=== PATIENT | female | born 1945 | race Caucasian/White ===

== ENCOUNTER 2019-04-15 22:49 | Inpatient (IN) ==
[2019-04-15 23:26] LABS: Hematocrit (blood only) 33.1 % (37-47); Hemoglobin 9.6 g/dL (12.0-16.0); Mean Corpuscular Hemoglobin 21.3 pg (25-34); Mean Corpuscular Volume 73.6 fL (80-100); Mean Platelet Volume 9.8 fL (7.4-10.4); Platelet Count 310 K/uL (130-400); RDW Coefficient of Variation 17.2 % (11.5-14.5); RDW Standard Deviation 46.5 fL (36.4-46.3); White Blood Count 23.82 K/uL (4.8-10.8)
[2019-04-15 23:34] LABS: Alanine Aminotransferase 18 U/L (12-78); Albumin Level 3.8 gm/dl (3.4-5.0); Aspartate Aminotransferase 9 U/L (15-37); BUN Creatinine Ratio 30.2 (10-20); Bilirubin Direct 0.1 mg/dl (0-0.2); Blood Urea Nitrogen 35 mg/dl (7-18); Calcium 9.5 mg/dl (8.5-10.1); Carbon Dioxide 28 mmol/L (21-32); Chloride 104 mmol/L (98-107); Creatinine Clr Calc Pharmacy 39.7 ml/min; Est GFR (African American) 54.7; Est GFR (Non-African American) 47.2; Glucose 191 mg/dl (70-99); Magnesium 2.2 mg/dl (1.8-2.4); Potassium 4.3 mmol/L (3.5-5.1); Sodium 140 mmol/L (136-145)
[2019-04-15 23:39] LABS: Alkaline Phosphatase 125 U/L (45-117); Bilirubin,Total 0.3 mg/dl (0.2-1); Total Protein 8.9 gm/dl (6.4-8.2); Troponin I < 0.015 ng/ml (0-0.045)
[2019-04-15 23:50] LABS: INR 1.1 (0.9-1.1); Prothrombin Time 11.6 Seconds (9.0-12.0)
[2019-04-15 23:59] LABS: Anisocytosis Present; Basophils # (auto) 0.01 K/uL (0-0.2); Eosinophils # (auto) 0.01 K/uL (0-0.5); Hypochromasia Present; Immature Granulocytes % (auto) 0.4 %; Lymphocytes # (auto) 1.09 K/uL (1.2-3.4); Lymphocytes % (auto) 4.6 %; Monocytes # (auto) 0.87 K/uL (0.11-0.59); Monocytes % (auto) 3.7 %; Neutrophils # (auto) 21.74 K/uL (1.4-6.5); Neutrophils % (auto) 91.3 %; Polychromasia 1+; Tear Drop Cells 1+
[2019-04-16 00:17] LABS: Appearance Urine Clear (Clear); Bilirubin Urine Negative (Negative); Blood Urine Negative (Negative); Color Urine Yellow; Glucose Urine UA Negative (Negative); Ketones Urine Negative (Negative); Leukocyte Esterase Urine Negative (Negative); Nitrite Urine Negative (Negative); Protein Urine Negative (Negative); Urobilinogen Urine Negative (Negative)
[2019-04-16] MEDS ORDERED: VANCOMYCIN CONSULT ACTIVE PRN ×2 (00:50→04:29)
[2019-04-16] MEDS ORDERED: CEFEPIME 2,000 MG/20 ML VIAL IV STA (00:50)
[2019-04-16] MEDS ORDERED: VANCOMYCIN HCL 1,500 MG in SODIUM CHLORIDE 0.9% 500 ML IV ONE (00:50)
[2019-04-16] MEDS ORDERED: SODIUM CHLORIDE 0.9% 1000ML 1,000 ML IV ONE ×2 (00:57)
--- NOTE | 2019-04-16 02:54 | History & Physical Report ---
Date of Service April 16, 2019 Assessment & Plan (1) Altered mental status: (2) Sepsis: Monitor repeat lactate, vitals, repeat labs, blood cultures IVF Admit to tele Cefepime and vanco (3) Cellulitis: Cefepime and vanco initiated (4) Infestation by bed bug: (5) Infestation by insect: Isolation precautions Single treatment of permethrin (6) HTN (hypertension): Continue home regimen Amlodipine, carvedilol, HCTZ, losartan (7) TIA (transient ischemic attack): This was initial concern for which son brought her to ER; symptoms resolved on arrival. CT head neg. Pt with h/o CVA with residual deficits Will consult neuro, US carotid, echo, speech eval, neuro checks (8) Hypothyroid: Cont home meds (9) Hyperlipidemia: Cont home meds (10) Diabetes mellitus: Check A1c BSG ACHS ISS (11) Seizure disorder: Cont dilantin Seizure precautions (12) Overactive bladder: Cont home meds (13) Depression: Cont home meds DVTP: heparin sq bid Code: full as code status not discussed w pt or family Dispo: isolation, telemetry admission (14) Diabetic nephropathy: (15) Obesity: History of Present Illness Chief Complaint: [facility] Primary Care Provider: Av Patel MD Patient is a 74yo F PMH listed below but significant for prev CVA (2001), presented via EMS at [facility] of her son who reported altered mental status 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 History provided by ER providers and staff. Pt has h/o CVA with some residual R- sided deficits and was in a typical state of health until earlier this evening when her son noted abnormal speech and incoherent thoughts. EMS was called and patient was evaluated in the ER for possible TIA and sepsis. Initial labs revealed elevated WBC of 23k, H/H of 9.6/33, lactate 2.5, normal UA. CT head negative from stat rad read. Initial examination of pt revealed R-leg cellulitis, fleas, chiggers, bed bugs, and lice. [facility] PMH: -severe HTN, hypothyroid, HLD, overactive bladder, seizure disorder, CVA with residual R-sided weakness, T2DM, depression, diabetic nephropathy, obesity, ?intellectual disability Allergies Allergy/AdvReac Type Severity Reaction Status Date / Time No Known Allergies Allergy Unknown Verified 04/15/19 23:44 Home Medications Home Medications Medication Instructions Recorded Confirmed Type amlodipine 10 mg PO DAILY 04/15/19 04/15/19 History aspirin 81 mg PO DAILY 04/15/19 04/15/19 History baclofen 10 mg PO TID 04/15/19 04/15/19 History carvedilol 25 mg PO QPM 04/15/19 04/15/19 History carvedilol 50 mg PO QAM 04/15/19 04/15/19 History cholecalciferol (vitamin D3) 2,000 unit PO DAILY 04/15/19 04/15/19 History [Vitamin D3] furosemide 20 mg PO DAILY 04/15/19 04/15/19 History glimepiride 4 mg PO DAILY 04/15/19 04/15/19 History hydrochlorothiazide 12.5 mg PO BID 04/15/19 04/15/19 History levothyroxine 75 mcg PO DAILY 04/15/19 04/15/19 History loratadine 10 mg PO DAILY 04/15/19 04/15/19 History losartan 50 mg PO DAILY 04/15/19 04/15/19 History metformin 500 mg PO BID 04/15/19 04/15/19 History phenytoin sodium extended 100 mg PO QPM 04/15/19 04/15/19 History [Dilantin Extended] phenytoin sodium extended 200 mg PO QAM 04/15/19 04/15/19 History [Dilantin Extended] rosuvastatin 40 mg PO HS 04/15/19 04/15/19 History tolterodine 4 mg PO DAILY 04/15/19 04/15/19 History Past Med/Surg History Medical History (Updated 04/16/19 @ 11:36 by Moses Fischer MD) History of CVA (cerebrovascular accident) Social History Preferred Language: Citizen Of [place] Beliefs That Will Affect Care: None Current Living Situation: Family Feels Safe at Home: Yes Safety Concerns: Feels Safe At This Time Smoking Status: Never smoker Hx Alcohol Use: No Hx Substance Use: No Review of Systems Review of Systems: Other (As obtained by ER physician) Constitutional: + fatigue, + malaise and + weakness Physical Exam Physical Exam: Please see ER physician's note. Unable to examine patient due to isolation in relation to excess of insects on patient/son in room. Fleas,chiggers, bed bugs, lice. Noted to have cellulitis of L thigh. Results & Data Vital Signs (Past 12 Hours) Vital Signs Temp Pulse Pulse Resp BP BP Pulse Ox 04/16/19 02:34 20 97 04/16/19 02:33 118 H 20 155/100 H 89 L 04/16/19 01:44 107 H 16 170/88 H 98 04/16/19 00:00 95 H 16 169/78 H 100 04/15/19 23:00 98.2 F 92 H 20 169/78 H 98 Laboratory Results 04/16/19 04/16/19 04/16/19 Range/Units 00:25 00:15 00:00 WBC (4.8-10.8) K/uL RBC (4.2-5.4) M/uL Hgb (12.0-16.0) g/dL Hct (37-47) % MCV (80-100) fL MCH (25-34) pg MCHC (32-36) g/dL RDW Std Deviation (36.4-46.3) fL RDW Coeff of Maurice (11.5-14.5) % Plt Count (130-400) K/uL MPV (7.4-10.4) fL Immature Gran % (Auto) % Neut % (Auto) % Lymph % (Auto) % [place] % (Auto) % Eos % (Auto) % Baso % (Auto) % Immature Gran # (Auto) (0.00-0.02) K/uL Neut # (Auto) (1.4-6.5) K/uL Lymph # (Auto) (1.2-3.4) K/uL [place] # (Auto) (0.11-0.59) K/uL Eos # (Auto) (0-0.5) K/uL Baso # (Auto) (0-0.2) K/uL Polychromasia Hypochromasia Anisocytosis Tear Drop Cells PT (9.0-12.0) Seconds INR (0.9-1.1) Sodium (136-145) mmol/L Potassium (3.5-5.1) mmol/L Chloride (98-107) mmol/L Carbon Dioxide (21-32) mmol/L Anion Gap (3-11) BUN (7-18) mg/dl Creatinine (0.6-1.2) mg/dl Est Cr Clr Drug Dosing ml/min Est GFR ( Amer) Est GFR (Non-Af Amer) BUN/Creatinine Ratio (10-20) Glucose (70-99) mg/dl Lactate 2.5 H* (0.4-2.0) mmol/L Calcium (8.5-10.1) mg/dl Magnesium (1.8-2.4) mg/dl Total Bilirubin (0.2-1) mg/dl Direct Bilirubin (0-0.2) mg/dl AST (15-37) U/L ALT (12-78) U/L Alkaline Phosphatase (45-117) U/L Troponin I (0-0.045) ng/ml Total Protein (6.4-8.2) gm/dl Albumin (3.4-5.0) gm/dl Urine Color Yellow Urine Appearance Clear (Clear) Urine pH 6.0 (4.5-7.5) Ur Specific [place] 1.020 (1.000-1.030) Urine Protein Negative (Negative) Urine Glucose (UA) Negative (Negative) Urine Ketones Negative (Negative) Urine Blood Negative (Negative) Urine Nitrite Negative (Negative) Urine Bilirubin Negative (Negative) Urine Urobilinogen Negative (Negative) Ur Leukocyte Esterase Negative (Negative) Stl C. diff Tox B Gene TNP 04/15/19 04/15/19 04/15/19 Range/Units 22:35 22:35 22:35 WBC 23.82 H (4.8-10.8) K/uL RBC 4.50 (4.2-5.4) M/uL Hgb 9.6 L (12.0-16.0) g/dL Hct 33.1 L (37-47) % MCV 73.6 L (80-100) fL MCH 21.3 L (25-34) pg MCHC 29.0 L (32-36) g/dL RDW Std Deviation 46.5 H (36.4-46.3) fL RDW Coeff of Maurice 17.2 H (11.5-14.5) % Plt Count 310 (130-400) K/uL MPV 9.8 (7.4-10.4) fL Immature Gran % (Auto) 0.4 % Neut % (Auto) 91.3 % Lymph % (Auto) 4.6 % [place] % (Auto) 3.7 % Eos % (Auto) 0.0 % Baso % (Auto) 0.0 % Immature Gran # (Auto) 0.10 H (0.00-0.02) K/uL Neut # (Auto) 21.74 H (1.4-6.5) K/uL Lymph # (Auto) 1.09 L (1.2-3.4) K/uL [place] # (Auto) 0.87 H (0.11-0.59) K/uL Eos # (Auto) 0.01 (0-0.5) K/uL Baso # (Auto) 0.01 (0-0.2) K/uL Polychromasia 1+ Hypochromasia Present Anisocytosis Present Tear Drop Cells 1+ PT 11.6 (9.0-12.0) Seconds INR 1.1 (0.9-1.1) Sodium 140 (136-145) mmol/L Potassium 4.3 (3.5-5.1) mmol/L Chloride 104 (98-107) mmol/L Carbon Dioxide 28 (21-32) mmol/L Anion Gap 8.0 (3-11) BUN 35 H (7-18) mg/dl Creatinine 1.15 (0.6-1.2) mg/dl Est Cr Clr Drug Dosing 39.7 ml/min Est GFR ( Amer) 54.7 Est GFR (Non-Af Amer) 47.2 BUN/Creatinine Ratio 30.2 H (10-20) Glucose 191 H (70-99) mg/dl Lactate (0.4-2.0) mmol/L Calcium 9.5 (8.5-10.1) mg/dl Magnesium 2.2 (1.8-2.4) mg/dl Total Bilirubin 0.3 (0.2-1) mg/dl Direct Bilirubin 0.1 (0-0.2) mg/dl AST 9 L (15-37) U/L ALT 18 (12-78) U/L Alkaline Phosphatase 125 H (45-117) U/L Troponin I < 0.015 (0-0.045) ng/ml Total Protein 8.9 H (6.4-8.2) gm/dl Albumin 3.8 (3.4-5.0) gm/dl Urine Color Urine Appearance (Clear) Urine pH (4.5-7.5) Ur Specific [place] (1.000-1.030) Urine Protein (Negative) Urine Glucose (UA) (Negative) Urine Ketones (Negative) Urine Blood (Negative) Urine Nitrite (Negative) Urine Bilirubin (Negative) Urine Urobilinogen (Negative) Ur Leukocyte Esterase (Negative) Stl C. diff Tox B Gene Code Status & VTE Plan Code Status Full code, NOT discussed with patient or family VTE Prophylaxis Plan VTE Prophylaxis will be ordered: Yes Supervising Physician Co-Signing Physician Notes Attending addendum: I have physically seen this patient, have supervised the medical residents activities, and agree with the H&P unless as otherwise noted. Assessment and Plan: Sepsis due to lower extremity cellulitis- Admit to medical telemetry. Continue cefepime IV and Vanco IV. IV fluids Follow culture and sensitivities. Isolation precautions as noted. Treatment with permethrin as noted. Notification of appropriate agencies. Continue other medications and orders as noted. Resident Activity Tracking Resident Involvement: Resident Care Provided Care Provided: Adult Hospital Medicine (1) Cellulitis Laterality: right Site of cellulitis: extremity Site of cellulitis of extremity: lower extremity Qualified Code(s): L03.115 - Cellulitis of right lower limb (2) Sepsis Sepsis acute organ dysfunction status: unspecified Sepsis type: sepsis due to unspecified organism Qualified Code(s): A41.9 - Sepsis, unspecified organism (3) Altered mental status Altered mental status type: unspecified Qualified Code(s): R41.82 - Altered mental status, unspecified
[2019-04-16] MEDS ORDERED: GLUCOSE 10 TABS/TUBE PO PRN (04:29)
[2019-04-16] MEDS ORDERED: VANCOMYCIN HCL 1,250 MG in SODIUM CHLORIDE 0.9% 500 ML IV SCH (04:29)
[2019-04-16] MEDS ORDERED: ALUMINUM/MAGNESIUM SUSP 30 ML UDC PO PRN (04:29)
[2019-04-16] MEDS ORDERED: GLUCAGON FOR INJ 1 MG VIAL SQ PRN (04:29)
[2019-04-16] MEDS ORDERED: DEXTROSE 50% 50 ML SYRINGE IV PRN (04:29)
[2019-04-16] MEDS ORDERED: GLUCOSE 40% GEL 15 GM TUBE PO PRN (04:29)
[2019-04-16] MEDS ORDERED: MAGNESIUM HYDROXIDE SUSP 30 ML UDC PO PRN (04:29)
[2019-04-16] MEDS ORDERED: CARBOHYDRATES FOR HYPOGLYCEMIA PO PRN (04:29)
[2019-04-16] MEDS ORDERED: ONDANSETRON INJ 2 MG/ML 2 ML VIAL IV PRN (04:29)
[2019-04-16] MEDS ORDERED: SODIUM CHLORIDE 0.9% 1000ML 1,000 ML IV SCH (04:29)
[2019-04-16] MEDS ORDERED: PHARMACIST DISCHARGE MED REC CONSULT PRN (04:29)
[2019-04-16] MEDS ORDERED: ACETAMINOPHEN 325 MG TAB PO PRN (04:29)
[2019-04-16] MEDS ORDERED: POLYETHYLENE (MIRALAX) 17 GM PACK PO PRN (04:29)
[2019-04-16] MEDS ORDERED: PERMETHRIN 59 ML LIQUID BTL TOP ONE (04:29)
[2019-04-16] MEDS ORDERED: ACETAMINOPHEN 1,000 MG/100 ML VIAL IV PRN (05:19)
--- NOTE | 2019-04-16 05:21 | Emergency Department Note ---
Entered by Bear [place] acting as a scribe for ED Provider Note Name: Analia Lemon Age: 74 Arrives Via: EMS Informant: Self and son CC: AMS HPI: 74 y/o female arrives for evaluation of a resolving AMS beginning 2.5 hours ago. The patient states she does not what is going on and thinks she may have had another TIA. She reports she was here two years ago. The patient notes she has frequent TIAs and had a left sided TIA that rendered her permanently disabled on the right side. She states she is wheelchair bound and is able to move herself from her bed to her wheelchair. The patient's son notes he found the patient in the corner of the bathroom with the lights off. He states he started talking to her, and she was complaining of right arm hurting. The son reports she was not her normal self and was sitting on her wheelchair. He notes there are bugs in his house, and he does not know what they are. The son states they have been trying to kill them. Nursing staff reports the patient was found with her right arm tense and when the son asked if she wanted to go to the ED, she said yes. She denies headache, neck pain, chest pain, SOB, abdominal pain, burning with urination, and falls or injuries. The patient's friend states there are bed bugs all over the house, and their house is disgusting. HPI limited secondary to the patient's speech impediment. ROS: See HPI for pertinent positives & negatives. A total of 10 systems reviewed and were otherwise negative. Past Medical History: DM, hypothyroidism, CVA, previously on Coumadin, HTN, seen in the ER most frequently 6 years ago for dermatitis Past Surgical History: Appendectomy, cholecystectomy Family History: Lung disease, HTN, DM, Cancer, seizures Social History: Never smoke, , lives with son, disabled Home Medications: aspirin Allergies NKDA Physical: Vitals: BP 169/78, Pulse 92, Resp 20, Temp 98.2 F, O2 Sat 98 on RA Exam: GENERAL: Patient is disheveled appearing in dirty clothes and covered in multiple types of insects. Slow speech. Difficulty finding words. No distress. EYES: No scleral icterus, unremarkable pupils. ENT: Mucous membranes dry, no nasal congestion. NECK: No masses appreciated, no meningismus, trachea is midline. RESPIRATORY: No dyspnea. Clear to auscultation and equal bilaterally. No wheeze, no rhonchi. CARDIOVASCULAR: Regular rate and rhythm. No murmurs, rubs, gallops appreciated. GASTROINTESTINAL: Abdomen soft, non-tender, no peritonitis. Bowel sounds positive. No masses appreciated. BACK: No midline tenderness, no CVA tenderness EXTREMITIES: No edema. Contractures of the right arm and leg. Weakness of her right arm and leg. Muscle wasting of lower extremities. NEUROLOGIC: Alert and oriented, no acute motor or sensory deficits, no focal weakness, cranial nerves grossly intact. Slow speech. Difficulty finding words. GCS of 15. SKIN: No rash, no jaundice, no diaphoresis. ED Course: Prior Medical Record, Triage/Nursing Notes, Medications, Allergies reviewed by Me Vital Signs: reviewed and remarkable for HTN Labs: Reviewed and remarkable for elevated WBC, lactic acidosis Interventions: saline lock, nss bolus 2L IV, cefepime 2gm IV, Vanco IV Imaging: X ray results are stated below per my interpretation: Chest: 1 view: No infiltrate, no effusion, normal cardiac border. Radiology results as stated below per my review and the radiologist's interpretation: CT HEAD: Comparison:CT head 06/21/08. Chronic left frontoparietal infarct, unchanged. No ICH, mass effect, or edema. No skull fracture. Sinuses and mastoid air cells are clear. Radiologist: Manas Mason M.D. Study ready at 00:44 and initial results transmitted at 00:46 EKG: Per My Interpretation: Indication AMS: NSR 96, qtc 469, no ectopy no ischemia. Poor baseline. Overall appears similar to ekg 06/21/08. Reassessments/Times: 2306: Past medical records reviewed. The patient was evaluated in room A12B. A complete history and physical exam was performed. 0050: Upon reevaluation, the patient is resting comfortably. I discussed laboratory and radiographic results with the son. He verbalized agreement of the treatment plan. The patient will be evaluated for further management and care. 0057: The patient's lactate is elevated. 2L of NSS was ordered in addition to the fluids with the antibiotics. 0117: The patient is very dry and dehydrated appearing. 0124: I reviewed the patient's case with Dr. [id number] Hospitalist. He will evaluate the patient for further management. 0351: The patient is being transferred to the floor. Blood pressure: Normal. No Referral necessary Disposition: Hospitalization Differentials: Differential Diagnosis includes but is not limited to dehydration, stroke, anemia, hypoglycemia, hyponatremia, hypernatremia, urinary tract infection, pneumonia, bronchitis, sepsis, gastroenteritis, additional abdominal pathology, metabolic abnormalities and infections. Medical Decision Makin yr old female in severe mal condition covered in multiple types of insects which appear to be bed bugs, flees, amongst others. She had episode of altered mental status, weakness and apparently mild worsening of her chronically weak right arm. By exam she has stuttering speech but son notes she is completely back to her baseline. Work-up began and revealed elevated WBC at which time Lactic acid and blood cultures obtained. Fluids started and empiric broad spectrum abx begun. She likely is infected from wounds on legs and cellulitis. CXR and UA OK. CT head unremarkable. Other labs ok currently. This is a very unwell patient who clearly is not doign well as outpatient to begin with. She was treated for sepsis and hospitalist in to evaluate further. Impression: Sepsis Cellulitis AMS Infestation by bed bug Infestation by insect Critical Care Time: I have personally spent greater than 30 minutes of critical care time in the direct management of this patient. Sepsis due to cellulitis with elevated WBC and Lactic acidosis requiring fluid and abx resus. This was a life/limb threatening event. This includes time spent evaluating patient, direct bedside care, chart review, placing orders, interpretation of diagnostic studies, discussion with consultants, patient, and family members, as well as other required patient management activities. This 30 minutes is in excess of all separately billable procedures. Wesly Perkins MD The scribe's documentation has been prepared under my direction and personally reviewed by me in its entirety. I confirm that the note above accurately reflects all work, treatment, procedures, and medical decision making performed by me. Impression & Plan Sepsis, Altered mental status, Cellulitis, Infestation by bed bug, Infestation by insect Past Med/Surg History Medical History (Updated 04/16/19 @ 03:38 by Mickie Agrawal MD) History of CVA (cerebrovascular accident) Social History Preferred Language: Turk[place] Beliefs That Will Affect Care: None Current Living Situation: Family Feels Safe at Home: Yes Safety Concerns: Feels Safe At This Time Smoking Status: Never smoker Hx Alcohol Use: No Hx Substance Use: No Results & Data Vital Signs Vital Signs - 24 hr 04/15/19 23:00 04/16/19 00:00 04/16/19 01:44 Temperature 36.8 C Temperature Source Oral Pulse Rate 92 H Pulse Rate [Apical] 95 H 107 H Pulse Rhythm Regular Pulse Rhythm [Apical] Regular Regular Pulse Strength Normal Respiratory Rate 20 16 16 Respiratory Effort / Characteristics Non-Labored Spontaneous Non-Labored Spontaneous Non-Labored Spontaneous Respiratory Depth Normal Normal Normal Respiratory Pattern Regular Regular Regular Blood Pressure 169/78 H Blood Pressure [Right Arm] 169/78 H 170/88 H Blood Pressure Mean 108 Blood Pressure Mean [Right Arm] 108 115 Blood Pressure Position Lying Blood Pressure Position [Right Arm] Pulse Oximetry 98 100 98 Oxygen Delivery Method Room Air Room Air Room Air Oxygen Flow Rate Sepsis Recent Fever Within 48 Hours No Sepsis New/Unexplained Change in Mental Status No Sepsis Action Taken by Nursing No Action Required 04/16/19 02:33 04/16/19 02:34 Temperature Temperature Source Pulse Rate Pulse Rate [Apical] 118 H Pulse Rhythm Pulse Rhythm [Apical] Regular Pulse Strength Respiratory Rate 20 20 Respiratory Effort / Characteristics Respiratory Depth Shallow Respiratory Pattern Blood Pressure Blood Pressure [Right Arm] 155/100 H Blood Pressure Mean Blood Pressure Mean [Right Arm] 118 Blood Pressure Position Blood Pressure Position [Right Arm] Lying Pulse Oximetry 89 L 97 Oxygen Delivery Method Room Air Nasal Cannula Oxygen Flow Rate 2 Sepsis Recent Fever Within 48 Hours Sepsis New/Unexplained Change in Mental Status Sepsis Action Taken by Nursing Laboratory Data Result diagrams: 04/15/19 22:35 04/15/19 22:35 Lab Results 04/15/19 04/15/19 04/15/19 Range/Units 22:35 22:35 22:35 WBC 23.82 H (4.8-10.8) K/uL RBC 4.50 (4.2-5.4) M/uL Hgb 9.6 L (12.0-16.0) g/dL Hct 33.1 L (37-47) % MCV 73.6 L (80-100) fL MCH 21.3 L (25-34) pg MCHC 29.0 L (32-36) g/dL RDW Std Deviation 46.5 H (36.4-46.3) fL RDW Coeff of Maurice 17.2 H (11.5-14.5) % Plt Count 310 (130-400) K/uL MPV 9.8 (7.4-10.4) fL Immature Gran % (Auto) 0.4 % Neut % (Auto) 91.3 % Lymph % (Auto) 4.6 % [place] % (Auto) 3.7 % Eos % (Auto) 0.0 % Baso % (Auto) 0.0 % Immature Gran # (Auto) 0.10 H (0.00-0.02) K/uL Neut # (Auto) 21.74 H (1.4-6.5) K/uL Lymph # (Auto) 1.09 L (1.2-3.4) K/uL [place] # (Auto) 0.87 H (0.11-0.59) K/uL Eos # (Auto) 0.01 (0-0.5) K/uL Baso # (Auto) 0.01 (0-0.2) K/uL Polychromasia 1+ Hypochromasia Present Anisocytosis Present Tear Drop Cells 1+ PT 11.6 (9.0-12.0) Seconds INR 1.1 (0.9-1.1) Sodium 140 (136-145) mmol/L Potassium 4.3 (3.5-5.1) mmol/L Chloride 104 (98-107) mmol/L Carbon Dioxide 28 (21-32) mmol/L Anion Gap 8.0 (3-11) BUN 35 H (7-18) mg/dl Creatinine 1.15 (0.6-1.2) mg/dl Est Cr Clr Drug Dosing 39.7 ml/min Est GFR ( Amer) 54.7 Est GFR (Non-Af Amer) 47.2 BUN/Creatinine Ratio 30.2 H (10-20) Glucose 191 H (70-99) mg/dl Lactate (0.4-2.0) mmol/L Calcium 9.5 (8.5-10.1) mg/dl Magnesium 2.2 (1.8-2.4) mg/dl Total Bilirubin 0.3 (0.2-1) mg/dl Direct Bilirubin 0.1 (0-0.2) mg/dl AST 9 L (15-37) U/L ALT 18 (12-78) U/L Alkaline Phosphatase 125 H (45-117) U/L Troponin I < 0.015 (0-0.045) ng/ml Total Protein 8.9 H (6.4-8.2) gm/dl Albumin 3.8 (3.4-5.0) gm/dl Urine Color Urine Appearance (Clear) Urine pH (4.5-7.5) Ur Specific [place] (1.000-1.030) Urine Protein (Negative) Urine Glucose (UA) (Negative) Urine Ketones (Negative) Urine Blood (Negative) Urine Nitrite (Negative) Urine Bilirubin (Negative) Urine Urobilinogen (Negative) Ur Leukocyte Esterase (Negative) Stl C. diff Tox B Gene 04/16/19 04/16/19 04/16/19 Range/Units 00:00 00:15 00:25 WBC (4.8-10.8) K/uL RBC (4.2-5.4) M/uL Hgb (12.0-16.0) g/dL Hct (37-47) % MCV (80-100) fL MCH (25-34) pg MCHC (32-36) g/dL RDW Std Deviation (36.4-46.3) fL RDW Coeff of Maurice (11.5-14.5) % Plt Count (130-400) K/uL MPV (7.4-10.4) fL Immature Gran % (Auto) % Neut % (Auto) % Lymph % (Auto) % [place] % (Auto) % Eos % (Auto) % Baso % (Auto) % Immature Gran # (Auto) (0.00-0.02) K/uL Neut # (Auto) (1.4-6.5) K/uL Lymph # (Auto) (1.2-3.4) K/uL [place] # (Auto) (0.11-0.59) K/uL Eos # (Auto) (0-0.5) K/uL Baso # (Auto) (0-0.2) K/uL Polychromasia Hypochromasia Anisocytosis Tear Drop Cells PT (9.0-12.0) Seconds INR (0.9-1.1) Sodium (136-145) mmol/L Potassium (3.5-5.1) mmol/L Chloride (98-107) mmol/L Carbon Dioxide (21-32) mmol/L Anion Gap (3-11) BUN (7-18) mg/dl Creatinine (0.6-1.2) mg/dl Est Cr Clr Drug Dosing ml/min Est GFR ( Amer) Est GFR (Non-Af Amer) BUN/Creatinine Ratio (10-20) Glucose (70-99) mg/dl Lactate 2.5 H* (0.4-2.0) mmol/L Calcium (8.5-10.1) mg/dl Magnesium (1.8-2.4) mg/dl Total Bilirubin (0.2-1) mg/dl Direct Bilirubin (0-0.2) mg/dl AST (15-37) U/L ALT (12-78) U/L Alkaline Phosphatase (45-117) U/L Troponin I (0-0.045) ng/ml Total Protein (6.4-8.2) gm/dl Albumin (3.4-5.0) gm/dl Urine Color Yellow Urine Appearance Clear (Clear) Urine pH 6.0 (4.5-7.5) Ur Specific [place] 1.020 (1.000-1.030) Urine Protein Negative (Negative) Urine Glucose (UA) Negative (Negative) Urine Ketones Negative (Negative) Urine Blood Negative (Negative) Urine Nitrite Negative (Negative) Urine Bilirubin Negative (Negative) Urine Urobilinogen Negative (Negative) Ur Leukocyte Esterase Negative (Negative) Stl C. diff Tox B Gene TNP Administered Medications Sodium Chloride (Nss 1000ml) 1,000 mls @ 80 mls/hr IV .[id number] [facility] Stop: 05/16/19 04:28 Last Admin: 04/16/19 05:21 Dose: Not Given Documented by: [id number] Discontinued Medications Cefepime HCl (Maxipime) 2,000 mg in 20 mls @ 5 mls/min IV NOW STA Stop: 04/16/19 00:53 Last Admin: 04/16/19 01:12 Dose: 5 mls/min Documented by: [id number] Vancomycin HCl 1,500 mg/ (Sodium Chloride) 530 mls @ 200 mls/hr IV NOW ONE Stop: 04/16/19 03:28 Last Infusion: 04/16/19 02:38 Dose: 0 mls/hr Documented by: [id number] Admin: 04/16/19 01:12 Dose: 200 mls/hr Documented by: [id number] Sodium Chloride (Nss 1000ml) 1,000 mls @ 999 mls/hr IV .Q1H1M ONE Stop: 04/16/19 01:57 Last Infusion: 04/16/19 02:38 Dose: 0 mls/hr Documented by: [id number] Admin: 04/16/19 01:13 Dose: 999 mls/hr Documented by: [id number] Sodium Chloride (Nss 1000ml) 1,000 mls @ 999 mls/hr IV .Q1H1M ONE Stop: 04/16/19 01:57 Last Infusion: 04/16/19 02:38 Dose: 0 mls/hr Documented by: [id number] Admin: 04/16/19 01:13 Dose: 999 mls/hr Documented by: [id number] Discharge Plan Visit Data *Final* Discharge Date/Time: 04/16/19 04:10 Chief Complaint: Altered Mental Status Stated Complaint: AMS ED Provider: Wesly Perkins Discharge Problem: Sepsis, Altered mental status, Cellulitis, Infestation by bed bug, Infestation by insect Patient Disposition: Admitted As Inpatient Discharge Instructions Interventions: ED Discharge Assessment Last Done: 04/16/19 04:10 Sepsis Evaluation Sepsis screening result: No Definite Risk Current stage of sepsis: sepsis Focused Exam Vital Signs Temp Pulse Pulse Resp BP BP Pulse Ox 04/16/19 02:34 20 97 04/16/19 02:33 118 H 20 155/100 H 89 L 04/16/19 01:44 107 H 16 170/88 H 98 04/16/19 00:00 95 H 16 169/78 H 100 04/15/19 23:00 36.8 C 92 H 20 169/78 H 98 Discharge Problem: Sepsis Qualifiers: Sepsis type: sepsis due to unspecified organism Sepsis acute organ dysfunction status: unspecified Qualified Code(s): A41.9 - Sepsis, unspecified organism Altered mental status Qualifiers: Altered mental status type: unspecified Qualified Code(s): R41.82 - Altered mental status, unspecified Cellulitis Qualifiers: Site of cellulitis: extremity Site of cellulitis of extremity: lower extremity Laterality: right Qualified Code(s): L03.115 - Cellulitis of right lower limb The scribe's documentation has been prepared under my direction and personally reviewed by me in its entirety. I confirm that the note above accurately reflec ts all work, treatment, procedures, and medical decision making performed by me.
[2019-04-16] MEDS ORDERED: INFLUENZA ADMINISTRATION CHARGE ONE (05:30)
[2019-04-16] MEDS ORDERED: INFLUENZA VACCINE HIGH DOSE 65+ 0.5 ML SYR IM ONE (05:30)
[2019-04-16 06:08] LABS: Hemoglobin 8.1 g/dL (12.0-16.0); Mean Corpuscular Hemoglobin 21.2 pg (25-34); Mean Corpuscular Hgb Conc 28.9 g/dL (32-36); Mean Corpuscular Volume 73.3 fL (80-100); Mean Platelet Volume 9.4 fL (7.4-10.4); Platelet Count 240 K/uL (130-400); RDW Coefficient of Variation 17.2 % (11.5-14.5); RDW Standard Deviation 46.4 fL (36.4-46.3); Red Blood Count 3.82 M/uL (4.2-5.4); White Blood Count 15.44 K/uL (4.8-10.8)
[2019-04-16 06:28] LABS: Basophils # (auto) 0.02 K/uL (0-0.2); Basophils % (auto) 0.1 %; Eosinophils # (auto) 0.01 K/uL (0-0.5); Eosinophils % (auto) 0.1 %; Hypochromasia Present; Immature Granulocytes # (auto) 0.04 K/uL (0.00-0.02); Immature Granulocytes % (auto) 0.3 %; Lymphocytes # (auto) 1.59 K/uL (1.2-3.4); Lymphocytes % (auto) 10.3 %; Monocytes # (auto) 1.11 K/uL (0.11-0.59); Monocytes % (auto) 7.2 %; Neutrophils # (auto) 12.67 K/uL (1.4-6.5)
[2019-04-16 06:40] LABS: BUN Creatinine Ratio 28.7 (10-20); Calcium 8.2 mg/dl (8.5-10.1); Creatinine Clr Calc Pharmacy 47.7 ml/min; Est GFR (African American) 65.5; Est GFR (Non-African American) 56.5; Potassium 3.9 mmol/L (3.5-5.1)
--- NOTE | 2019-04-16 06:45 | CT Scan Report ---
HEAD CT NONCONTRAST CT DOSE: 767.83 mGy.cm HISTORY: Altered mental status. TECHNIQUE: Multiaxial CT images of the head were performed without the use of intravenous contrast. A utomated exposure control was utilized for this study. A dose lowering technique was utilized adheri ng to the principles of ALARA. Comparison: Head CT 06/21/2008. Findings: The paranasal sinuses and mastoid air cells are clear. The calvarium and skull base are int act. There is no mass, hematoma, midline shift, acute infarct. White matter hypodensity is nonspecifi c but suggestive of microvascular ischemic change. The ventricles and sulci demonstrate mild age-rela china involutional changes. Chronic left MCA territory infarct, unchanged. Impression: No significant change compared to the prior study. No acute intracranial abnormality. Old left MCA te rritory infarct is again noted. Electronically signed by: Doug Blackmon M.D. 04/16/2019 6:44 AM
[2019-04-16 06:49] LABS: Albumin Globulin Ratio 0.7 (0.9-2); Bilirubin,Total 0.3 mg/dl (0.2-1); Globulin 4.1 gm/dl (2.5-4.0); Total Protein 7.1 gm/dl (6.4-8.2)
[2019-04-16] MEDS: LEVOTHYROXINE SODIUM 75 MCG TABLET PO SCH (06:50)
[2019-04-16 07:24] LABS: Estimated Average Glucose 160 mg/dl; Hemoglobin A1C 7.2 % (4.5-5.6)
[2019-04-16] MEDS ORDERED: INSULIN ASPART 100 UNITS/ML 3 ML PEN SC SCH ×2 (07:30)
--- NOTE | 2019-04-16 08:25 | XRay Report ---
XR chest 1V portable HISTORY: Altered mental status. COMPARISON: None. FINDINGS: No pneumothorax. The heart is enlarged. Bibasilar densities may represent a combination of atelectasis and prominent mediastinal fat. No evidence for pulmonary edema. No pleural effusions. IMPRESSION: 1. Cardiomegaly. 2. Bibasilar densities. These are nonspecific but may represent a combination of prominence of the me diastinal fat and atelectasis. Electronically signed by: Doug Blackmon M.D. 04/16/2019 8:24 AM
[2019-04-16] MEDS: HEPARIN SOD 5,000 UNIT/0.5 ML VIAL SQ SCH ×2 (08:58→20:55)
[2019-04-16] MEDS ORDERED: hydroCHLOROthiazide 25 MG TAB PO SCH (09:00)
[2019-04-16] MEDS: INSULIN GLARGINE SOLOSTAR 100 UNITS/ML 3 ML PEN SC SCH ×2 (09:29→20:50)
--- NOTE | 2019-04-16 10:11 | Pharmacy Report ---
Pharmacy Abx Initial Consult - Date of Service April 16, 2019 - Pharmacy Dosing Scope Date of Consult: 04/16/19 Consultation requested by: Dr. Agrawal Pharmacy is consulted to initiate Vancomycin IV dosing therapy, order appropriate labs and adjust drug dose/frequency. - Subjective The patient is a 74 year old F admitted on 04/16/19 02:48. - Objective Height: 5 ft 2 in Weight: 74.1 kg Vital Signs (Past 12hrs): Vital Signs Temp Pulse Pulse Resp BP BP BP 04/16/19 08:51 37.3 C 94 H 18 141/57 H 04/16/19 04:00 36.7 C 117 H 20 115/93 04/16/19 03:36 101 H 20 183/114 H 04/16/19 02:34 20 04/16/19 02:33 118 H 20 155/100 H 04/16/19 01:44 107 H 16 170/88 H 04/16/19 00:00 95 H 16 169/78 H 04/15/19 23:00 36.8 C 92 H 20 169/78 H Pulse Ox 04/16/19 08:51 96 04/16/19 04:00 97 04/16/19 03:36 100 04/16/19 02:34 97 04/16/19 02:33 89 L 04/16/19 01:44 98 04/16/19 00:00 100 04/15/19 23:00 98 Lab Results (24hrs): Laboratory Tests (24 Hours) 04/16/19 04/16/19 04/15/19 05:42 05:42 22:35 WBC 15.44 H Neut # (Auto) 12.67 H Creatinine 0.99 1.15 Est Cr Clr Drug Dosing 47.7 39.7 04/15/19 22:35 WBC 23.82 H Neut # (Auto) 21.74 H Creatinine Est Cr Clr Drug Dosing Micro Results: 04/15/19 00:15 Aerobic Blood Culture - Pending Blood Anaerobic Blood Culture - Pending 04/15/19 00:10 Aerobic Blood Culture - Pending Blood Anaerobic Blood Culture - Pending - Risk Factors for Resistance * No risk factors for resistance - Assessment & Plan Assessment 74 year old F presented to [facility] with AMS on the evening of 04/15/19 - PMHx significant for prior CVA, T2DM with nephropathy, HTN - Patient noted to have RLE cellulitis with concern for sepsis - Presented with leukocytosis (WBCs ~ 24,000), elevated lactic acid (2.5), afebrile - Today, WBCs down to ~ 15,000, SCr improving (1.15 --> 0.99), remains afebrile - UA negative, Blood Cultures pending Plan IV Vancomycin and Cefepime for treatment of cellulitis Vancomycin IV * Estimated PK Parameters: Vd 0.6 L/kg, Garry 0.044 hr-1, t1/2 16 hr * Loading dose: 1500 mg (20 mg/kg) * Maintenance dose: 1250 mg IV (17 mg/kg) every 24 hours * Goal trough level for cellulitis : ~ 15 mcg/mL * Trough level ordered for 04/18/19 @ 1830 prior to the 3rd dose Cefepime * Pharmacy not consulted for Cefepime dosing * However, target dose for SST is 2 g IV every 12 hours and given patient's current renal function (SCr 0.99, eCrCl 48) will make a renal dose adjustment to 2 g IV every 24 hours per protocol. Will continue to monitor renal function for improvement. Pharmacy will continue to follow and will adjust dose/frequency as necessary. Thank you.
--- NOTE | 2019-04-16 11:42 | Hospitalist Progress Note ---
Date of Service April 16, 2019 Assessment & Plan (1) Altered mental status: Brought in by son for altered mental status. Per patient, her right arm raise into the air and she was confused. I have no idea if this was a seizure or something else entirely. - Dilantin level ordered - Monitor mental status - Neurology with Gillian ordered - She sees Dr. Howe - Unsure if EEG or other testing is warranted at this time (2) Cellulitis: Some concern for right leg cellulitis; however, it is not hot, not tender, and there is no clear area of erythema. I think the changes are most likely chronic; however, she does have many scabs from presumed bed bugs or lice (she reports small bugs crawling on the bed and furniture.) - Treated with permethrin on admission though there is concern that it was not able to get into her hair - Stop vanc/cefepime (ordered on admission) -> Switch to Keflex 500mg BID (renal-dosing) (3) Seizure disorder: Presumably due to her prior CVAs. - Continue home dilantin - Getting level and neuro consult as above (4) History of CVA (cerebrovascular accident): - Continue home meds (5) Diabetes mellitus: A1c was 7.2% this admission. - Hold home metformin - Long-acting insulin - Sliding scale insulin (6) HTN (hypertension): BP presently 140/60. - Continue home meds - Hold HCTZ as she is also on Lasix (7) Hypothyroid: No TSH in chart. - Continue levothyroxine 75 mcg daily - Get TSH with AM labs (8) Infestation by bed bug: Presumed bed bugs or lice. I did not note any on exam today, though bites look a bit more like bedbugs. - Treated x1 with permethrin (9) DVT prophylaxis: Heparin BID Subjective Feels pretty much at baseline at present. No changes in her neurologic status or other. Reports no fevers/chills, chest pain, shortness of breath, abdominal pain, nausea, or vomiting. Physical Exam Constitutional: WD/WN, vitals as above Eyes: EOM intact bilaterally; no conjunctival abnormality ENMT: external ear and nose normal, oropharynx normal Neck: trachea midline, no thyromegaly normal visual inspection Respiratory: normal respiratory effort, lungs clear to auscultation no respiratory distress Cardiovascular: RRR, no murmur, no edema Gastrointestinal (Abdomen): Inspection/Auscultation: abdomen normal to inspection; abdomen not distended Musculoskeletal: no cyanosis or clubbing, extremities motor strength 5/5 Skin: no rashes, warm and dry Neurologic: moves all extremities and awake Speech / Cognition: + abnormal speech (Dysarthric) Motor/Sensory: + abnormal movement (Right arm and leg) Psychiatric: Orientation: alert, oriented to person and cooperative Results & Data Vital Signs (Past 12 Hours) Vital Signs Temp Pulse Pulse Resp BP BP Pulse Ox 04/16/19 08:51 37.3 C 94 H 18 141/57 H 96 04/16/19 08:00 80 04/16/19 04:00 36.7 C 117 H 20 115/93 97 04/16/19 03:36 101 H 20 183/114 H 100 04/16/19 02:34 20 97 04/16/19 02:33 118 H 20 155/100 H 89 L 04/16/19 01:44 107 H 16 170/88 H 98 04/16/19 00:00 95 H 16 169/78 H 100 PG Care Time/CCT Total # of Minutes Spent Total Time Spent with Patient: Total time spent is greater than 50% in coordination of care (as documented) at patient's floor/unit and/or counseling patient: (1) Cellulitis Laterality: right Site of cellulitis: extremity Site of cellulitis of extremity: lower extremity Qualified Code(s): L03.115 - Cellulitis of right lower limb (2) Altered mental status Altered mental status type: unspecified Qualified Code(s): R41.82 - Altered mental status, unspecified
[2019-04-16] MEDS: AMLODIPINE BESYLATE 5 MG TAB PO SCH (12:13)
[2019-04-16] MEDS: PHENYTOIN SODIUM ER 100 MG CAP PO SCH (12:14)
[2019-04-16] MEDS: FUROSEMIDE 20 MG TAB PO SCH (12:14)
[2019-04-16] MEDS: carvediloL 25 MG TAB PO SCH ×2 (12:14→20:51)
[2019-04-16] MEDS: LOSARTAN POTASSIUM 50 MG TAB PO SCH (12:15)
[2019-04-16] MEDS: ASPIRIN 81 MG ECTAB PO SCH (12:16)
[2019-04-16] MEDS: TOLTERODINE TARTRATE LA 4 MG CAPCR PO SCH (12:16)
[2019-04-16] MEDS: BACLOFEN 10 MG TAB PO SCH ×3 (12:16→20:50)
[2019-04-16] MEDS: INSULIN ASPART 100 UNITS/ML 3 ML PEN SC SCH ×3 (12:18→20:49)
[2019-04-16] MEDS: cephALEXin 500 MG CAP PO SCH ×2 (13:22→20:54)
[2019-04-16] MEDS ORDERED: VANCOMYCIN HCL 1,250 MG in SODIUM CHLORIDE 0.9% 250 ML IV SCH (19:00)
[2019-04-16] MEDS: ROSUVASTATIN CALCIUM 20 MG TAB PO SCH (20:53)
[2019-04-16] MEDS ORDERED: PHENYTOIN SODIUM ER 100 MG CAP PO SCH (21:00)
[2019-04-17] MEDS ORDERED: CEFEPIME 2,000 MG in SYRINGE 7.5 ML IV SCH ×2
--- NOTE | 2019-04-17 01:06 | Billing Data ---
Coding Level of Care Code 00507 Initial Inpt Care Lvl 3
[2019-04-17] MEDS: LEVOTHYROXINE SODIUM 75 MCG TABLET PO SCH (06:18)
[2019-04-17] MEDS: AMLODIPINE BESYLATE 5 MG TAB PO SCH (07:47)
[2019-04-17] MEDS: LOSARTAN POTASSIUM 50 MG TAB PO SCH (07:47)
[2019-04-17] MEDS: BACLOFEN 10 MG TAB PO SCH ×3 (07:48→20:33)
[2019-04-17] MEDS: carvediloL 25 MG TAB PO SCH ×2 (07:48→20:32)
[2019-04-17] MEDS: cephALEXin 500 MG CAP PO SCH ×2 (07:48→20:32)
[2019-04-17] MEDS: FUROSEMIDE 20 MG TAB PO SCH (07:48)
[2019-04-17] MEDS: TOLTERODINE TARTRATE LA 4 MG CAPCR PO SCH (07:49)
[2019-04-17] MEDS: ASPIRIN 81 MG ECTAB PO SCH (07:49)
[2019-04-17] MEDS: PHENYTOIN SODIUM ER 100 MG CAP PO SCH ×2 (07:49→20:31)
[2019-04-17 07:50] LABS: Hematocrit (blood only) 26.3 % (37-47); Hemoglobin 7.7 g/dL (12.0-16.0); Mean Corpuscular Hemoglobin 21.2 pg (25-34); Mean Corpuscular Hgb Conc 29.3 g/dL (32-36); Mean Corpuscular Volume 72.5 fL (80-100); Mean Platelet Volume 9.4 fL (7.4-10.4); Platelet Count 227 K/uL (130-400); RDW Coefficient of Variation 17.2 % (11.5-14.5); RDW Standard Deviation 45.7 fL (36.4-46.3); Red Blood Count 3.63 M/uL (4.2-5.4); White Blood Count 9.59 K/uL (4.8-10.8)
[2019-04-17] MEDS: INSULIN GLARGINE SOLOSTAR 100 UNITS/ML 3 ML PEN SC SCH ×2 (07:50→20:30)
[2019-04-17] MEDS: HEPARIN SOD 5,000 UNIT/0.5 ML VIAL SQ SCH ×2 (07:50→20:28)
[2019-04-17] MEDS: INSULIN ASPART 100 UNITS/ML 3 ML PEN SC SCH ×4 (07:53→20:28)
[2019-04-17 08:29] LABS: BUN Creatinine Ratio 24.1 (10-20); Calcium 8.3 mg/dl (8.5-10.1); Est GFR (African American) 62.5; Est GFR (Non-African American) 53.9; Magnesium 1.9 mg/dl (1.8-2.4); Potassium 2.7 mmol/L (3.5-5.1)
[2019-04-17 08:39] LABS: Thyroid Stimulating Hormone 1.48 uIu/ml (0.300-4.500)
[2019-04-17] MEDS ORDERED: CALCIUM GLUCONATE 10% 2,000 MG in SODIUM CHLORIDE 0.9% 50 ML IV ONE (09:15)
[2019-04-17] MEDS: POT PHOSPHATE MONOBASIC W/ SOD TAB PO SCH ×4 (10:08→20:31)
[2019-04-17] MEDS: POTASSIUM CHLORIDE PWD 20 MEQ PACK PO SCH ×3 (10:09→20:34)
--- NOTE | 2019-04-17 11:12 | Communication Note ---
Date of Service: April 17, 2019 I have reviewed this patient's chart, perform examination and discussed her case with her attending hospital team. I have also reviewed what I can from our outpatient [facility] record. The patient has a history of a CVA in 2001 with a post CVA seizure disorder emanating from the scarring process in the left hemisphere and has been on variable dose of Dilantin ever since. On my review of the chart it would appear that she was supposed to take 400 mg a day but this apparently was not transmitted to her and she is been taking 200 mg in the morni ng and 100 at night ever since. She has a host of medical problems all outlined in the chart and all fairly stable with the possible exception of some cellulitis involving the left leg below this really more is in my mind due to infestation perhaps by lice and is complicated by the presence of what appears to be a stasis dermatitis in the right leg which is hemiparetic on Whatever the case she did have observed focal motor involuntary movements of the right arm followed by some confusion was brought to the emergency room at a high white count a CT scan showing only an old infarction, subsequent echo that shows no source of emboli, and is now back to normal but had a Dilantin level that was subtherapeutic at 6 My recommendations are to obtain a duplex of the carotids just to be more comp lete in terms of looking for potential source of the old CVA and for a possible embolic event that may have precipitated the seizure activity although I doubt this is the case, keep the Dilantin level at 200 twice a day and check an outpatient Dilantin level in 3 weeks with a follow-up visit to neurology at [facility] in about 3 to 4 weeks I discussed these recommendations with her hospital team and have dictated a more detailed formal consultation which has not yet been typed Faustino Howe MD
--- NOTE | 2019-04-17 13:04 | Consultation Report ---
DATE OF CONSULTATION: 04/17/[address] Moses Fischer. Analia is 74 years old, is right handed, is a patient of Dr. Royer Jones of the [facility] in [place] and was admitted yesterday to the [facility] for evaluation of some abnormal involuntary movements of the right arm, occurring in the setting of remote cerebrovascular accident in 2001 involving the deep portions and the superficial portion of the left hemisphere with a pretty dense right hemiparesis and minimal aphasia unfortunately, but whose causation was never established and after that she apparently developed recurrent seizures likely of partial onset with secondary generalization and was treated with Dilantin in variable doses under the care of Dr. Fritz Caro. She was then was seen by me on one occasion in the remote past and then by VANESSA Padgett, a practitioner in our group about a year or so ago. I did review that note and it would appear that her Dilantin dosing according to that note, at least was supposed to be 200 mg twice a day or 100 mg twice a day and 200 at night, but she tells me she has only been taking 200 in the morning and 100 at night and has been doing this for some time. In this setting and also in the setting of hypertension, the history of stroke, hypothyroidism, dyslipidemia, diabetes mellitus and neurogenic bladder and depression, she apparently was observed by family members to have involuntary movements of the right arm and she tells me now that she was aware of these, the arm began to jerk particularly in the hand, did so repetitively and then she may have had some confusion and alteration in her consciousness, although this is unclear. The event cleared, she was brought to the Emergency Room, acting on the assumption this was a possible transient ischemic attack, CAT scan shows only the area of old infarction and her Dilantin level was subsequently found to be subtherapeutic in the 6-7 range. Her other medical problems have been assessed. There is some question of infestation perhaps by lice and she has been treated appropriately and there was also some question of a cellulitis and I believe this was raised on an outpatient basis as well with one of Dr. Jones's notes and she was treated briefly with some antibiotics, but I think these are going to be held. I did have the opportunity to discuss her case with Dr. Moses Fischer today and he and I feel that we should simply increase her Dilantin dose to 200 mg twice a day which is easy for her to do based on her current schedule of other medications and have her followed up after another day of observation in our office in about 3-4 weeks with a Dilantin level repeated at that point. PAST MEDICAL HISTORY: Is outlined above, includes hypertension, hypothyroidism, dyslipidemia, neurogenic bladder and has a seizure disorder. The CVA with dense right hemiparesis, type 2 diabetes, depression, diabetic nephropathy, obesity, an underlying cognitive impairment of congenital type. MEDICATIONS: At home include amlodipine, aspirin, baclofen, carvedilol, cholecalciferol, furosemide, glimepiride, hydrochlorothiazide, levothyroxine, loratadine, losartan, metformin, phenytoin theoretically 100 in the morning, 200 at night, although my notations in our SMIC system suggested may have been higher, rosuvastatin, and tolterodine. ALLERGIES: She denies any drug allergies. PAST SURGICAL HISTORY: Surgically, there has been no significant procedures. SOCIAL HISTORY: Reveals her to be , currently living with her family. She is not a smoker, does not consume ethanol. FAMILY HISTORY: Noncontributory. REVIEW OF SYSTEMS: Reveals the recent probable infestation with lice or at least some form of insect with multiple bug bites in the lower extremities, chronic stasis dermatitis of the right lower extremity which is a paretic limb, but otherwise no apparent documented fevers, sweats, chills, weight loss, weight gain and she denies any specific problems referable to head, eyes, ears, nose and throat, cardiovascular, pulmonary, gastrointestinal, genitourinary, musculoskeletal, dermatologic, hematologic, or endocrinologic systems other than noted above with the skin issues in the lower extremities and neurologically of course we have the unexplained CVA back in 2001 involving the left hemisphere, probably a branch of the middle cerebral artery and probably embolic and the post-CVA seizure disorder that was theoretically well controlled on Dilantin up until the current admission when she presented with what I think was a focal motor seizure. PHYSICAL EXAMINATION: VITAL SIGNS: Revealed a blood pressure of 155/100, pulse was 118, respirations 20. She was afebrile. GENERAL: She was somewhat disheveled state with multiple insect bites over the lower extremities and stasis dermatitis on the right leg. There was some question of infestation in her hair which had not been clean for a while. HEENT: Examination is described as otherwise unremarkable. NECK: No carotid bruits were heard. HEART: Evaluation reveals no murmurs. LUNGS: Described as clear. ABDOMEN: Soft, nontender. EXTREMITIES: Lower extremities were free of edema, but did have the insect bites and has stasis dermatitis on the right. NEUROLOGIC: Today, neurologically she is awake, alert, can provide some history and can describe the event that precipitated admission to my satisfaction and it seems as though this was probably a focal motor seizure with post-event confusion that is not clear. She can describe her history to some degree, although she insists that her Dilantin dose was 300 and I suspect it was actually 400, but this may have been a simple miscommunication. Cranial nerves are largely intact with the exception of right upper motor neuron facial asymmetry, I do not miner pick any field cuts and neglect. Speech is a little dysarthric. There is no facial sensory loss. Tongue protrudes in the midline. There is a relatively dense right hemiparesis involving the arm more than the leg with increased tone, mild flexion deformity at the elbow and wrist and some mild flexion deformities at the knee and ankle. Reflexes are generally brisk throughout the right side, although the ankle jerks and knee jerks are difficult to establish due to poor relaxation. There is absence of the left ankle jerk and the left reflexes otherwise are seemingly normal, the right toe sign is extensor, right Haywood's sign is positive. There is a significant degree of upper motor neuron weakness in the right side without atrophy or fasciculations. Sensory examination was done in a very cursory fashion which seems to show some vibratory loss distally. Echocardiogram shows no potential cardiogenic source of emboli. A CT scan of the brain shows an area of old infarction and I do not think we really need to proceed any further with more diagnostic images. I have not seen results of a duplex of the carotids and this might be a reasonable thing to provide. Lab study suggests an elevated white count, possibly due to a seizure, which would make some sense in this setting and is otherwise unremarkable save for anemia and glucose irregularities consistent with her known diabetes In my opinion this event was likely a focal motor seizure due to low dilantin levels and the effects of the old cva in the left heimisphere I do not feel this was a TIA but the history is admittedly vauge at best As described above, my recommendations are to get a duplex of the carotids, continue her low dose aspirin, raise her Dilantin to 200 mg twice a day, have a level done in about 3 weeks and have a followup study of the Dilantin and a followup visit in our office in about 3-4 weeks. WE will check back on her tomorrow MTDD
--- NOTE | 2019-04-17 16:47 | Hospitalist Progress Note ---
Date of Service April 17, 2019 Assessment & Plan (1) Seizure disorder: Due to her prior CVAs. Brought in by son for altered mental status. Per patient, her right arm raise into the air and she was confused. Discussed with neuro and likely a small breakthrough seizure. - Neurology with Gillian ordered - Seen and discussed with Dr. Howe on 04/17. - Dilantin level was low on 04/16 - Increase home Dilantin to 200mg PO BID per neurology - Also getting carotid Doppler (2) Cellulitis: Some concern for right leg cellulitis; however, it is not hot, not tender, and there is no clear area of erythema. However, WBC was up to 24 (could have been inflammatory from seizure though.) I think the changes are most likely chronic; however, she does have many scabs from presumed bed bugs or lice (she reports small bugs crawling on the bed and furniture.) - Treated with permethrin on admission though there is concern that it was not able to get into her hair - Stop vanc/cefepime (ordered on admission) -> Switch to Keflex 500mg BID (renal-dosing). End date: 04/22. (3) Anemia: Hgb on admission was 9.6, down to 7.7 by 04/17. No signs of bleeding. - Get anemia labs in the AM. (4) History of CVA (cerebrovascular accident): - Continue home meds - Carotid Doppler per neurology (5) Diabetes mellitus: A1c was 7.2% this admission. - Hold home metformin - Long-acting insulin - Sliding scale insulin (6) HTN (hypertension): BP presently 145/60. - Continue home meds - Hold HCTZ as she is also on Lasix (7) Hypothyroid: TSH this admission was 1.5. - Continue levothyroxine 75 mcg daily (8) Infestation by bed bug: Presumed bed bugs or lice. I did not note any on exam today, though bites look a bit more like bedbugs. - Treated x1 with permethrin (9) DVT prophylaxis: Heparin BID Subjective In good spirits today. No major complaints. Less itching. No weird movements. Reports no fevers/chills, chest pain, shortness of breath, abdominal pain, nausea, or vomiting. Physical Exam Constitutional: WD/WN, vitals as above Eyes: EOM intact bilaterally; no conjunctival abnormality ENMT: external ear and nose normal, oropharynx normal Neck: trachea midline, no thyromegaly normal visual inspection Respiratory: normal respiratory effort, lungs clear to auscultation no respiratory distress Cardiovascular: RRR, no murmur, no edema Gastrointestinal (Abdomen): Inspection/Auscultation: abdomen normal to inspection; abdomen not distended Musculoskeletal: no cyanosis or clubbing, extremities motor strength 5/5 Skin: no rashes, warm and dry Neurologic: moves all extremities and awake Speech / Cognition: + abnormal speech (Dysarthric) Motor/Sensory: + abnormal movement (Right arm and leg) Psychiatric: Orientation: alert, oriented to person and cooperative Results & Data Vital Signs (Past 12 Hours) Vital Signs Temp Pulse Pulse Resp BP Pulse Ox 04/17/19 16:00 36.6 C 76 20 145/68 H 96 04/17/19 11:06 36.7 C 78 18 128/78 97 04/17/19 09:14 75 04/17/19 07:00 36.8 C 89 16 152/67 H 97 PG Care Time/CCT Total # of Minutes Spent Total Time Spent with Patient: Total time spent is greater than 50% in coordination of care (as documented) at patient's floor/unit and/or counseling patient: (1) Cellulitis Laterality: right Site of cellulitis: extremity Site of cellulitis of extremity: lower extremity Qualified Code(s): L03.115 - Cellulitis of right lower limb
[2019-04-17] MEDS: ROSUVASTATIN CALCIUM 20 MG TAB PO SCH (20:32)
[2019-04-18] MEDS: LEVOTHYROXINE SODIUM 75 MCG TABLET PO SCH (05:55)
[2019-04-18 07:05] LABS: Hematocrit (blood only) 27.2 % (37-47); Mean Corpuscular Hemoglobin 21.5 pg (25-34); Mean Corpuscular Hgb Conc 29.4 g/dL (32-36); Mean Corpuscular Volume 73.1 fL (80-100); Mean Platelet Volume 9.2 fL (7.4-10.4); Platelet Count 240 K/uL (130-400); RDW Coefficient of Variation 17.5 % (11.5-14.5); Red Blood Count 3.72 M/uL (4.2-5.4); White Blood Count 10.72 K/uL (4.8-10.8)
[2019-04-18 07:39] LABS: Folate (Folic Acid) 16.98 ng/ml (>5.38)
[2019-04-18 07:43] LABS: BUN Creatinine Ratio 24.1 (10-20); Calcium 8.8 mg/dl (8.5-10.1); Creatinine Clr Calc Pharmacy 45.6 ml/min; Est GFR (African American) 61.7; Est GFR (Non-African American) 53.3; Ferritin 16.7 ng/ml (8-388); Magnesium 1.9 mg/dl (1.8-2.4)
[2019-04-18 07:47] LABS: Potassium 4.6 mmol/L (3.5-5.1)
[2019-04-18 07:48] LABS: Phosphorus 3.7 mg/dl (2.5-4.9)
[2019-04-18] MEDS: INSULIN ASPART 100 UNITS/ML 3 ML PEN SC SCH ×4 (08:23→20:53)
[2019-04-18] MEDS: carvediloL 25 MG TAB PO SCH ×2 (08:40→20:52)
[2019-04-18] MEDS: LOSARTAN POTASSIUM 50 MG TAB PO SCH (08:41)
[2019-04-18] MEDS: TOLTERODINE TARTRATE LA 4 MG CAPCR PO SCH (08:42)
[2019-04-18] MEDS: PHENYTOIN SODIUM ER 100 MG CAP PO SCH ×2 (08:42→20:51)
[2019-04-18] MEDS: ASPIRIN 81 MG ECTAB PO SCH (08:43)
[2019-04-18] MEDS: HEPARIN SOD 5,000 UNIT/0.5 ML VIAL SQ SCH ×2 (08:44→20:52)
[2019-04-18] MEDS: cephALEXin 500 MG CAP PO SCH ×2 (08:45→20:51)
[2019-04-18] MEDS: INSULIN GLARGINE SOLOSTAR 100 UNITS/ML 3 ML PEN SC SCH ×2 (08:46→20:53)
[2019-04-18] MEDS: FUROSEMIDE 20 MG TAB PO SCH (08:49)
[2019-04-18] MEDS: BACLOFEN 10 MG TAB PO SCH ×3 (08:49→20:55)
[2019-04-18] MEDS: AMLODIPINE BESYLATE 5 MG TAB PO SCH (08:50)
--- NOTE | 2019-04-18 10:45 | Ultrasound Report ---
ULTRASOUND OF THE CAROTID ARTERIES CLINICAL HISTORY: Change in mental status. COMPARISON STUDY: No priors. TECHNIQUE: Real-time, grayscale, and color Doppler sonography of the carotid arteries is performed. I mages are reviewed in the transverse and longitudinal planes. FINDINGS: Blood pressure in the left arm measures 156/26. Pressures were not assessed in the right arm. The carotid arteries are patent bilaterally and demonstrate antegrade flow. There is no significant a therosclerotic plaque seen on the right Normal doppler arterial waveforms are seen throughout. Mildly elevated velocities in the distal right internal carotid artery are likely related to tortuosity. Ve locity measurements are listed below. Common carotid peak systolic velocity (cm/sec): RIGHT: 95 LEFT: 72 ICA proximal peak systolic velocity (cm/sec): RIGHT: 91 LEFT: 214 ICA mid peak systolic velocity (cm/sec): RIGHT: 108 LEFT: 126 ICA distal peak systolic velocity (cm/sec): RIGHT: 156 LEFT: 76 ICA/CC peak systolic ratio: RIGHT: 1.6 LEFT: 2.4 Antegrade flow was shown in the vertebral arteries. The external carotid arteries are patent. IMPRESSION: 1. There is evidence of 50-69% stenosis of the proximal left internal carotid artery by yanna higuera. 2. There is no sonographic evidence of hemodynamically significant stenosis in the right carotid ellen rial system. 3. Antegrade flow is shown in the vertebral arteries. Electronically signed by: Kalen Valdes M.D. 04/18/2019 10:43 AM
--- NOTE | 2019-04-18 15:54 | Communication Note ---
Date of Service: April 18, 2019 I saw Erika today examined her briefly, reviewed her duplex of the carotids and her EEG and and pleased to report that she has had no further events, her Dilantin dose has been increased by 100 mg, EEG is essentially normal revealing no evidence for potentially epileptogenic activity (this certainly does not exclude the diagnosis of a seizure however) and her duplex shows a 50 to 69% stenosis on the left which from a hemodynamic point of view is not significant and would not change my diagnosis of this event from seizure to TIA as I still favor the former based on the clinical history and the depressed Dilantin level on admission At this point neurology is going to sign off the case with recommendations that she have her Dilantin dose increased to 200 mg twice a day, and be followed up in our office in about 3 to 4 weeks and to return to the care of her primary care physician once her medical issues are stabilized Faustino Howe MD
--- NOTE | 2019-04-18 15:58 | Electroencephalogram ---
EEG Procedure Note Date of Service April 18, 2019 Start / End Times Start Time: 909 End Time: 929 Referring Physician Faustino Howe MD History Possible focal seizure versus TIA CVA Home Medication List Home Medications Medication Instructions Recorded Confirmed Type amlodipine 10 mg PO DAILY 04/15/19 04/15/19 History aspirin 81 mg PO DAILY 04/15/19 04/15/19 History baclofen 10 mg PO TID 04/15/19 04/15/19 History carvedilol 25 mg PO QPM 04/15/19 04/15/19 History carvedilol 50 mg PO QAM 04/15/19 04/15/19 History cholecalciferol (vitamin D3) 2,000 unit PO DAILY 04/15/19 04/15/19 History [Vitamin D3] furosemide 20 mg PO DAILY 04/15/19 04/15/19 History glimepiride 4 mg PO DAILY 04/15/19 04/15/19 History hydrochlorothiazide 12.5 mg PO BID 04/15/19 04/15/19 History levothyroxine 75 mcg PO DAILY 04/15/19 04/15/19 History loratadine 10 mg PO DAILY 04/15/19 04/15/19 History losartan 50 mg PO DAILY 04/15/19 04/15/19 History metformin 500 mg PO BID 04/15/19 04/15/19 History phenytoin sodium extended 100 mg PO QPM 04/15/19 04/15/19 History [Dilantin Extended] phenytoin sodium extended 200 mg PO QAM 04/15/19 04/15/19 History [Dilantin Extended] rosuvastatin 40 mg PO HS 04/15/19 04/15/19 History tolterodine 4 mg PO DAILY 04/15/19 04/15/19 History Inpatient Medication List Amlodipine Besylate (Norvasc) 10 mg PO DAILY [facility] Stop: 05/16/19 08:59 Last Admin: 04/18/19 08:50 Dose: 10 mg Documented by: [id number] Cosigned by: [id number] Admin: 04/17/19 07:47 Dose: 10 mg Documented by: [id number] Admin: 04/16/19 12:13 Dose: 10 mg Documented by: [id number] Aspirin (Ecotrin Ectab) 81 mg PO DAILY [facility] Stop: 05/16/19 08:59 Last Admin: 04/18/19 08:43 Dose: 81 mg Documented by: [id number] Cosigned by: [id number] Admin: 04/17/19 07:49 Dose: 81 mg Documented by: [id number] Admin: 04/16/19 12:16 Dose: 81 mg Documented by: [id number] Baclofen (Lioresal) 10 mg PO TID [facility] Stop: 05/16/19 08:59 Last Admin: 04/18/19 14:08 Dose: 10 mg Documented by: [id number] Cosigned by: [id number] Admin: 04/18/19 08:49 Dose: 10 mg Documented by: [id number] Cosigned by: [id number] Admin: 04/17/19 20:33 Dose: 10 mg Documented by: [id number] Admin: 04/17/19 14:23 Dose: 10 mg Documented by: [id number] Admin: 04/17/19 07:48 Dose: 10 mg Documented by: [id number] Admin: 04/16/19 20:50 Dose: 10 mg Documented by: [id number] Admin: 04/16/19 13:22 Dose: Not Given Documented by: [id number] Admin: 04/16/19 12:16 Dose: 10 mg Documented by: [id number] Carvedilol (Coreg) 25 mg PO QPM [facility] Stop: 05/16/19 20:59 Last Admin: 04/17/19 20:32 Dose: 25 mg Documented by: [id number] Admin: 04/16/19 20:51 Dose: 25 mg Documented by: [id number] Carvedilol (Coreg) 50 mg PO QAM [facility] Stop: 05/16/19 08:59 Last Admin: 04/18/19 08:40 Dose: 50 mg Documented by: [id number] Cosigned by: [id number] Admin: 04/17/19 07:48 Dose: 50 mg Documented by: [id number] Admin: 04/16/19 12:14 Dose: 50 mg Documented by: [id number] Cephalexin HCl (Keflex) 500 mg PO BID [facility]; Protocol Stop: 04/26/19 11:44 Last Admin: 04/18/19 08:45 Dose: 500 mg Documented by: [id number] Cosigned by: [id number] Admin: 04/17/19 20:32 Dose: 500 mg Documented by: [id number] Admin: 04/17/19 07:48 Dose: 500 mg Documented by: [id number] Admin: 04/16/19 20:54 Dose: 500 mg Documented by: [id number] Admin: 04/16/19 13:22 Dose: 500 mg Documented by: [id number] Furosemide (Lasix) 20 mg PO DAILY [facility] Stop: 05/16/19 08:59 Last Admin: 04/18/19 08:49 Dose: 20 mg Documented by: [id number] Cosigned by: [id number] Admin: 04/17/19 07:48 Dose: 20 mg Documented by: [id number] Admin: 04/16/19 12:14 Dose: 20 mg Documented by: [id number] Heparin Sodium (Porcine) (Heparin Sodium (Porcine)) 5,000 units SQ Q12 [facility] Stop: 05/16/19 08:59 Last Admin: 04/18/19 08:44 Dose: 5,000 units Documented by: [id number] Cosigned by: [id number] Admin: 04/17/19 20:28 Dose: 5,000 units Documented by: [id number] Cosigned by: [id number] Admin: 04/17/19 07:50 Dose: 5,000 units Documented by: [id number] Cosigned by: [id number] Admin: 04/16/19 20:55 Dose: 5,000 units Documented by: [id number] Cosigned by: [id number] Admin: 04/16/19 08:58 Dose: 5,000 units Documented by: [id number] Cosigned by: [id number] Insulin Aspart (Novolog Flexpen) 0 units SC ACHS [facility] Stop: 05/16/19 11:59 Last Admin: 04/18/19 12:33 Dose: 8 units Documented by: [id number] Cosigned by: [id number] Admin: 04/18/19 08:23 Dose: 7 units Documented by: [id number] Cosigned by: [id number] Admin: 04/17/19 20:28 Dose: 3 units Documented by: [id number] Cosigned by: [id number] Admin: 04/17/19 17:11 Dose: 10 units Documented by: [id number] Cosigned by: [id number] Admin: 04/17/19 12:02 Dose: 11 units Documented by: [id number] Cosigned by: [id number] Admin: 04/17/19 07:53 Dose: 7 units Documented by: [id number] Cosigned by: [id number] Admin: 04/16/19 20:49 Dose: 3 units Documented by: [id number] Cosigned by: [id number] Admin: 04/16/19 17:37 Dose: 8 units Documented by: [id number] Cosigned by: [id number] Admin: 04/16/19 12:18 Dose: 2 units Documented by: [id number] Cosigned by: [id number] Insulin Glargine (Lantus Solostar Pen) 13 units SC BID [facility] Stop: 05/16/19 08:59 Last Admin: 04/18/19 08:46 Dose: 13 units Documented by: [id number] Cosigned by: [id number] Admin: 04/17/19 20:30 Dose: 13 units Documented by: [id number] Cosigned by: [id number] Admin: 04/17/19 07:50 Dose: 13 units Documented by: [id number] Cosigned by: [id number] Admin: 04/16/19 20:50 Dose: 13 units Documented by: [id number] Cosigned by: [id number] Admin: 04/16/19 09:29 Dose: 10 units Documented by: [id number] Cosigned by: [id number] Levothyroxine Sodium (Synthroid) 75 mcg PO DAILYBB [facility] Stop: 05/16/19 06:29 Last Admin: 04/18/19 05:55 Dose: 75 mcg Documented by: [id number] Admin: 04/17/19 06:18 Dose: 75 mcg Documented by: [id number] Admin: 04/16/19 06:50 Dose: Not Given Documented by: [id number] Losartan Potassium (Cozaar) 50 mg PO DAILY [facility] Stop: 05/16/19 08:59 Last Admin: 04/18/19 08:41 Dose: 50 mg Documented by: [id number] Cosigned by: [id number] Admin: 04/17/19 07:47 Dose: 50 mg Documented by: [id number] Admin: 04/16/19 12:15 Dose: 50 mg Documented by: [id number] Phenytoin Sodium (Dilantin Er) 200 mg PO BID [facility] Stop: 05/17/19 20:59 Last Admin: 04/18/19 08:42 Dose: 200 mg Documented by: [id number] Cosigned by: [id number] Admin: 04/17/19 20:31 Dose: 200 mg Documented by: [id number] Rosuvastatin Calcium (Crestor) 40 mg PO HS [facility] Stop: 05/16/19 20:59 Last Admin: 04/17/19 20:32 Dose: 40 mg Documented by: [id number] Admin: 04/16/19 20:53 Dose: 40 mg Documented by: [id number] Tolterodine Tartrate (Detrol La) 4 mg PO DAILY [facility] Stop: 05/16/19 08:59 Last Admin: 04/18/19 08:42 Dose: 4 mg Documented by: [id number] Cosigned by: [id number] Admin: 04/17/19 07:49 Dose: 4 mg Documented by: [id number] Admin: 04/16/19 12:16 Dose: 4 mg Documented by: [id number] Discontinued Medications Hydrochlorothiazide (Hctz) 12.5 mg PO BID [facility] Stop: 05/16/19 08:59 Last Admin: 04/16/19 12:30 Dose: Not Given Documented by: [id number] Cefepime HCl (Maxipime) 2,000 mg in 20 mls @ 5 mls/min IV NOW [facility] Stop: 04/16/19 00:53 Last Admin: 04/16/19 01:12 Dose: 5 mls/min Documented by: [id number] Vancomycin HCl 1,500 mg/ (Sodium Chloride) 530 mls @ 200 mls/hr IV NOW ONE Stop: 04/16/19 03:28 Last Infusion: 04/16/19 02:38 Dose: 0 mls/hr Documented by: [id number] Admin: 04/16/19 01:12 Dose: 200 mls/hr Documented by: [id number] Sodium Chloride (Nss 1000ml) 1,000 mls @ 999 mls/hr IV .Q1H1M ONE Stop: 04/16/19 01:57 Last Infusion: 04/16/19 02:38 Dose: 0 mls/hr Documented by: [id number] Admin: 04/16/19 01:13 Dose: 999 mls/hr Documented by: [id number] Sodium Chloride (Nss 1000ml) 1,000 mls @ 999 mls/hr IV .Q1H1M ONE Stop: 04/16/19 01:57 Last Infusion: 04/16/19 02:38 Dose: 0 mls/hr Documented by: [id number] Admin: 04/16/19 01:13 Dose: 999 mls/hr Documented by: [id number] Sodium Chloride (Nss 1000ml) 1,000 mls @ 80 mls/hr IV .[id number] [facility] Stop: 05/16/19 04:28 Last Admin: 04/16/19 05:21 Dose: Not Given Documented by: [id number] Acetaminophen (Ofirmev) 1,000 mg in 100 mls @ 400 mls/hr IV Q8H PRN PRN Reason: Pain or Fever Stop: 04/19/19 05:18 Last Infusion: 04/16/19 06:51 Dose: 0 mls/hr Documented by: [id number] Admin: 04/16/19 06:20 Dose: 400 mls/hr Documented by: [id number] Calcium Gluconate 2,000 mg/ (Sodium Chloride) 70 mls @ 240 mls/hr IV 0915 ONE Stop: 04/17/19 09:32 Last Infusion: 04/17/19 10:30 Dose: 0 mls/hr Documented by: [id number] Admin: 04/17/19 10:08 Dose: 240 mls/hr Documented by: [id number] Influenza Virus Vaccine (Fluzone High-Dose Pf) 0.5 ml IM .ONCE ONE Stop: 04/16/19 05:31 Last Admin: 04/17/19 06:16 Dose: Not Given Documented by: [id number] Insulin Aspart (Novolog Flexpen) 0 units SC Q6 [facility] Stop: 05/16/19 07:29 Last Admin: 04/16/19 08:58 Dose: 1 units Documented by: [id number] Cosigned by: [id number] Permethrin (Lice Treatment) 59 ml TOP ONE ONE Stop: 04/16/19 04:30 Last Admin: 04/16/19 05:20 Dose: 59 ml Documented by: [id number] Phenytoin Sodium (Dilantin Er) 100 mg PO QPM [facility] Stop: 05/16/19 20:59 Last Admin: 04/16/19 20:53 Dose: 100 mg Documented by: [id number] Phenytoin Sodium (Dilantin Er) 200 mg PO QAM [facility] Stop: 05/16/19 08:59 Last Admin: 04/17/19 07:49 Dose: 200 mg Documented by: [id number] Admin: 04/16/19 12:14 Dose: 200 mg Documented by: [id number] Potassium Chloride (Klor-Con Pwd) 40 meq PO TID [facility] Stop: 04/17/19 21:01 Last Admin: 04/17/19 20:34 Dose: 40 meq Documented by: [id number] Admin: 04/17/19 14:22 Dose: 40 meq Documented by: [id number] Admin: 04/17/19 10:09 Dose: 40 meq Documented by: [id number] Potassium Phosphate (Phospha 250 Neutral 155-852-130 Mg) 1 tab PO QID [facility] Stop: 04/17/19 21:01 Last Admin: 04/17/19 20:31 Dose: 1 tab Documented by: [id number] Admin: 04/17/19 17:14 Dose: 1 tab Documented by: [id number] Admin: 04/17/19 12:03 Dose: 1 tab Documented by: [id number] Admin: 04/17/19 10:08 Dose: 1 tab Documented by: [id number] Description This is a 21 electrode EEG with a single channel dedicated to limited EKG. The electrodes were placed in accordance with the International 10-20 system. This EEG was done as a bedside recording is of good technical quality with few or no muscle movement artifacts. Photic stimulation was performed. Drowsiness and light sleep are not obtained. Under these conditions there is evidence for normal-appearing background rhythm in the alpha range of up to 9 Hz maximum frequency and 30 V of maximal amplitude this maximum posterior head regions bilaterally symmetrical. Polymorphic mid to slightly lower frequency modest amplitude theta activity seen centrally in a symmetrical fashion. Beta activity seen bifrontally Photic stimulation provokes a modest driving response without a photo myogenic a photoparoxysmal component No time during the waking tracing is evidence for potentially epileptogenic activity in the form of polyspike and spike-wave burst, focal sharp waves or focal spikes Interpretation This is a normal EEG during wakefulness Clinical Correlation This is a normal study revealing no evidence for focal or generalized encephalopathy no evidence for potentially epileptogenic activity Faustino Howe MD
--- NOTE | 2019-04-18 16:31 | Hospitalist Progress Note ---
Date of Service April 18, 2019 Assessment & Plan (1) Seizure disorder: * Due to her prior CVAs. Brought in by son for altered mental status. Per patient, her right arm raise into the air and she was confused. Discussed with neuro and likely a small breakthrough seizure. * Neurology with Gillian ordered - Seen and discussed with Dr. Howe on 04/17. * Dilantin level was low, 6, on 04/16 * Increased home Dilantin to 200mg PO BID per neurology -- will need repeat dilantin level in 3 weeks * EEG without evidence of focal or generalized encephalopathy or epileptogenic activity * Carotid doppler -- 50-69% stenosis L proximal internal carotid, R patent (2) Cellulitis: * Some concern for right leg cellulitis; however, it is not hot, tender, or with clear area of erythema. * However, WBC was up to 24, which may have been inflammatory from seizure, however likely this is chronic skin changes. * She does have many scabs from presumed bed bugs or lice (she reports small bugs crawling on the bed and furniture.) -- treated with permethrin on admission. No evidence of further infestation currently. * Stop vanc/cefepime (ordered on admission) -> Switch to Keflex 500mg BID (renal-dosing). End date: 04/22. (3) Anemia: * Hgb on admission was 9.6, down to 7.7 by 04/17. No signs of bleeding. * Current H/h 8.0/27.2 * Iron and ferritin % low-- initiated iron supplementation BID -- may need stool softener if she becomes constipated * Fecal occult stool pending * Patient with low H/H without identifiable cause-- possible need for EGD/colonoscopy as outpatient (4) History of CVA (cerebrovascular accident): * Continue home ASA, crestor * Carotid doppler as above (5) Diabetes mellitus: * A1c was 7.2% this admission. * Hold home metformin -- may need increased at discharge to 1500-2000mg daily * Long-acting insulin * Sliding scale insulin (6) HTN (hypertension): * BP 127/68 this AM * Continue home losartan, coreg, amlodipine, lasix * Should be noted that her Coreg dose is quite high-unclear if there is any benefit to this above the maximum recommended dose * HCTZ on hold and she does not need two diuretics upon discharge (7) Hypothyroid: * TSH this admission was 1.5. * Continue levothyroxine 75 mcg daily (8) Infestation by bed bug: * Presumed bed bugs or lice- treated with permethrin x 1 (9) Carotid artery stenosis: Carotid doppler -- 50-69% stenosis L proximal internal carotid, R patent -Continue aspirin, statin -Should be monitored as an outpatient (10) DVT prophylaxis: * Heparin BID Dispo: will be on [facility] service tomorrow as PCP is Dr. Robert French. Transition of care was discussed with accepting physicians access services assistant Supervising Physician Co-Signing Physician Notes PA Supervision Note: I did not personally see or examine the patient today, but I verified all [place] points of MARY Newton's assessment and plan with the following exceptions/additions: Changes made in assessment and plan as above Subjective Patient evaluated at bedside this morning. She states she is feeling much better. She states she has been moving her bowels, four times yesterday and once this morning, however she denies any melena/hematochezia but does admit she does not look. She plans to discharge to [facility] possibly tomorrow. Review of Systems Constitutional: no fever and no chills Ear, Nose, Mouth, Throat: no tinnitus and no dysphagia Respiratory: no cough and no dyspnea Cardiovascular: no chest pain, no palpitations and no edema Gastrointestinal: no abdominal pain, no nausea, no vomiting, no constipation and no diarrhea/loose stools Genitourinary: no dysuria and no urinary frequency Integumentary: no rash and no lesions darkened R lower leg-- chronic venous stasis Neurologic: no syncope and no headache(s) Physical Exam Constitutional: WD/WN, vitals as above Eyes: PERRL, conjunctivae normal, anicteric sclerae Neck: trachea midline, no thyromegaly Respiratory: normal respiratory effort, lungs clear to auscultation Cardiovascular: RRR, no murmur, no edema Gastrointestinal (Abdomen): normal bowel sounds, soft, nontender, no hepatosplenomegaly Skin: darkened area right lower leg-- chronic venous stasis changes several scattered areas of healed excoriations Neurologic: Speech dysarthric at times Residual deficits R arm/leg Psychiatric: A+Ox3, euthymic affect Lymphatic: no cervical or axillary lymphadenopathy Results & Data Vital Signs (Past 12 Hours) Vital Signs Temp Pulse Pulse Resp BP Pulse Ox 04/18/19 14:54 37 C 72 17 100/59 L 96 04/18/19 11:38 36.9 C 71 17 106/60 96 04/18/19 07:27 78 04/18/19 07:22 36.6 C 72 18 127/68 97 04/18/19 07:11 37.5 C 72 18 122/64 95 Laboratory Results 04/18/19 04/18/19 04/18/19 Range/Units 16:03 11:22 07:25 WBC (4.8-10.8) K/uL RBC (4.2-5.4) M/uL Hgb (12.0-16.0) g/dL Hct (37-47) % MCV (80-100) fL MCH (25-34) pg MCHC (32-36) g/dL RDW Std Deviation (36.4-46.3) fL RDW Coeff of Maurice (11.5-14.5) % Plt Count (130-400) K/uL MPV (7.4-10.4) fL Sodium (136-145) mmol/L Potassium (3.5-5.1) mmol/L Chloride (98-107) mmol/L Carbon Dioxide (21-32) mmol/L Anion Gap (3-11) BUN (7-18) mg/dl Creatinine (0.6-1.2) mg/dl Est Cr Clr Drug Dosing ml/min Est GFR ( Amer) Est GFR (Non-Af Amer) BUN/Creatinine Ratio (10-20) Glucose (70-99) mg/dl POC Glucose 192 H 200 H 156 H (70-99) Calcium (8.5-10.1) mg/dl Phosphorus (2.5-4.9) mg/dl Magnesium (1.8-2.4) mg/dl Iron (35-150) mcg/dl Transferrin (200-360) mg/dl Transferrin % Sat (15-50) % Ferritin (8-388) ng/ml Vitamin B12 (211-911) pg/ml Folate (>5.38) ng/ml 04/18/19 04/18/19 04/18/19 Range/Units 06:53 06:53 06:53 WBC 10.72 (4.8-10.8) K/uL RBC 3.72 L (4.2-5.4) M/uL Hgb 8.0 L (12.0-16.0) g/dL Hct 27.2 L (37-47) % MCV 73.1 L (80-100) fL MCH 21.5 L (25-34) pg MCHC 29.4 L (32-36) g/dL RDW Std Deviation 47.0 H (36.4-46.3) fL RDW Coeff of Maurice 17.5 H (11.5-14.5) % Plt Count 240 (130-400) K/uL MPV 9.2 (7.4-10.4) fL Sodium 140 (136-145) mmol/L Potassium 4.6 D (3.5-5.1) mmol/L Chloride 109 H (98-107) mmol/L Carbon Dioxide 25 (21-32) mmol/L Anion Gap 7.0 (3-11) BUN 25 H (7-18) mg/dl Creatinine 1.04 (0.6-1.2) mg/dl Est Cr Clr Drug Dosing 45.6 ml/min Est GFR ( Amer) 61.7 Est GFR (Non-Af Amer) 53.3 BUN/Creatinine Ratio 24.1 H (10-20) Glucose 135 H (70-99) mg/dl POC Glucose (70-99) Calcium 8.8 (8.5-10.1) mg/dl Phosphorus 3.7 D (2.5-4.9) mg/dl Magnesium 1.9 (1.8-2.4) mg/dl Iron 12 L (35-150) mcg/dl Transferrin 270 (200-360) mg/dl Transferrin % Sat 3 L (15-50) % Ferritin 16.7 (8-388) ng/ml Vitamin B12 622 (211-911) pg/ml Folate 16.98 (>5.38) ng/ml 04/17/19 Range/Units 20:27 WBC (4.8-10.8) K/uL RBC (4.2-5.4) M/uL Hgb (12.0-16.0) g/dL Hct (37-47) % MCV (80-100) fL MCH (25-34) pg MCHC (32-36) g/dL RDW Std Deviation (36.4-46.3) fL RDW Coeff of Maurice (11.5-14.5) % Plt Count (130-400) K/uL MPV (7.4-10.4) fL Sodium (136-145) mmol/L Potassium (3.5-5.1) mmol/L Chloride (98-107) mmol/L Carbon Dioxide (21-32) mmol/L Anion Gap (3-11) BUN (7-18) mg/dl Creatinine (0.6-1.2) mg/dl Est Cr Clr Drug Dosing ml/min Est GFR ( Amer) Est GFR (Non-Af Amer) BUN/Creatinine Ratio (10-20) Glucose (70-99) mg/dl POC Glucose 222 H (70-99) Calcium (8.5-10.1) mg/dl Phosphorus (2.5-4.9) mg/dl Magnesium (1.8-2.4) mg/dl Iron (35-150) mcg/dl Transferrin (200-360) mg/dl Transferrin % Sat (15-50) % Ferritin (8-388) ng/ml Vitamin B12 (211-911) pg/ml Folate (>5.38) ng/ml PG Care Time/CCT Total # of Minutes Spent Total Time Spent with Patient: Total time spent is greater than 50% in coordination of care (as documented) at patient's floor/unit and/or counseling patient: (1) Cellulitis Laterality: right Site of cellulitis: extremity Site of cellulitis of extremity: lower extremity Qualified Code(s): L03.115 - Cellulitis of right lower limb
[2019-04-18] MEDS: FERROUS SULFATE 325 MG TAB PO SCH (16:52)
[2019-04-18] MEDS ORDERED: VANCOMYCIN TROUGH SCH (18:30)
[2019-04-18] MEDS: ROSUVASTATIN CALCIUM 20 MG TAB PO SCH (20:51)
[2019-04-19] MEDS: LEVOTHYROXINE SODIUM 75 MCG TABLET PO SCH (05:50)
--- NOTE | 2019-04-19 07:24 | Hospitalist Progress Note ---
Date of Service April 19, 2019 Assessment & Plan (1) Seizure disorder: (1) Seizure disorder: Due to her prior CVAs. Brought in by son for altered mental status. Per patient, her right arm raise into the air and she was confused. Discussed with neuro and likely a small breakthrough seizure. Neurology on case Dilantin level was low, 6, on 04/16 Increased home Dilantin to 200mg PO BID per neurology -- will need repeat Dilantin level in 3 weeks EEG without evidence of focal or generalized encephalopathy or epileptogenic activity Carotid doppler -- 50-69% stenosis L proximal internal carotid, R patent (2) Cellulitis: Keflex 500mg BID (renal-dosing). End date: 04/22. (3) Anemia: Patient with low H/H without identifiable cause-- possible need for EGD/colonoscopy as outpatient (4) History of CVA (cerebrovascular accident): Continue home ASA, Crestor Carotid doppler as above (5) Diabetes mellitus: Hold home metformin -- may need increased at discharge to 1500-2000mg daily Long-acting insulin Sliding scale insulin (6) HTN (hypertension): Continue home losartan, coreg, amlodipine, lasix (7) Hypothyroid: TSH this admission was 1.5. Continue levothyroxine 75 mcg daily (8) Infestation by bed bug: Presumed bed bugs or lice- treated with permethrin x 1 (9) Carotid artery stenosis: Carotid doppler -- 50-69% stenosis L proximal internal carotid, R patent -Continue aspirin, statin -Should be monitored as an outpatient Labs checked ROS-No Headache, No Visual Changes, No Nausea, No Vomiting, No Fever, No Chills, No Neck Pain or Stiffness, No Chest Pain, No Palpitations, No SOB, No YODER, No Cough, No Sputum, No Wheezing, No Abdominal Pain, No Diarrhea, No Hematemesis, No Hemoptysis, No Unexpected Weight Loss, No Flank pain, No Melena, No Hematochezia, No Frequency, No Urgency, No Burning, No Hematuria, No Rashes, No Diaphoresis. Appetite is Normal Physical Exam Gen-AAO x 3, NAD, Afebrile, WC bound Head-NCAT, EOMI, PERRLA, Anicteric Sclera, No Posterior Pharyngeal Erythema Neck-Supple, No JVD, No Thyromegaly, No Masses, No LAD, No Bruits Lungs-Clear to Auscultation Bilaterally, No Rales, No Rhonchi, No Wheezing, No Crepitus Chest-No S4, +S1, +S2, No S3, No Murmurs, No Rubs, No Gallops, No Ectopy Abdomen-Soft, Bowel Sounds Present, Non Tender, Non Distended, No Hepatomegaly, No Splenomegaly, No Palpable Masses, No Rebound, No Rigidity, No Guarding Musculoskeletal-Full Range of Motion Bilaterally, No CVAT Extremities-No Cyanosis, No Clubbing, No Edema, Chronic stasis RLE>L Nuero-Cranial Nerves II-XII grossly intact, Motor WNL, DTRs WNL, Strength WNL, N on Focal Psych-Normal Mood Results & Data Vital Signs (Past 12 Hours) Vital Signs Temp Pulse Pulse Resp BP Pulse Ox 04/19/19 04:23 36.9 C 69 18 99/61 L 97 04/19/19 01:25 74 04/18/19 22:33 37.6 C H 77 20 97/50 L 97 04/18/19 20:44 74 108/62
[2019-04-19] MEDS: INSULIN GLARGINE SOLOSTAR 100 UNITS/ML 3 ML PEN SC SCH ×2 (09:52→21:12)
[2019-04-19] MEDS: INSULIN ASPART 100 UNITS/ML 3 ML PEN SC SCH ×4 (09:53→21:12)
[2019-04-19] MEDS: ASPIRIN 81 MG ECTAB PO SCH (09:55)
[2019-04-19] MEDS: AMLODIPINE BESYLATE 5 MG TAB PO SCH (09:55)
[2019-04-19] MEDS: LOSARTAN POTASSIUM 50 MG TAB PO SCH (09:55)
[2019-04-19] MEDS: BACLOFEN 10 MG TAB PO SCH ×3 (09:55→21:15)
[2019-04-19] MEDS: TOLTERODINE TARTRATE LA 4 MG CAPCR PO SCH (09:55)
[2019-04-19] MEDS: cephALEXin 500 MG CAP PO SCH ×2 (09:56→21:15)
[2019-04-19] MEDS: HEPARIN SOD 5,000 UNIT/0.5 ML VIAL SQ SCH ×2 (09:57→21:13)
[2019-04-19] MEDS: FERROUS SULFATE 325 MG TAB PO SCH ×2 (09:58→16:13)
[2019-04-19] MEDS: PHENYTOIN SODIUM ER 100 MG CAP PO SCH ×2 (09:59→21:16)
[2019-04-19] MEDS ORDERED: PERMETHRIN 59 ML LIQUID BTL TOP ONE (10:00)
[2019-04-19] MEDS: FUROSEMIDE 20 MG TAB PO SCH (10:00)
[2019-04-19] MEDS: carvediloL 25 MG TAB PO SCH ×2 (10:01→21:17)
[2019-04-19] MEDS: ROSUVASTATIN CALCIUM 20 MG TAB PO SCH (21:17)
[2019-04-20] MEDS: LEVOTHYROXINE SODIUM 75 MCG TABLET PO SCH (06:26)
[2019-04-20 07:33] LABS: Hematocrit (blood only) 27.2 % (37-47); Mean Corpuscular Hemoglobin 21.6 pg (25-34); Mean Corpuscular Hgb Conc 29.4 g/dL (32-36); Mean Corpuscular Volume 73.3 fL (80-100); Mean Platelet Volume 8.8 fL (7.4-10.4); Platelet Count 216 K/uL (130-400); RDW Coefficient of Variation 17.5 % (11.5-14.5); RDW Standard Deviation 46.3 fL (36.4-46.3); Red Blood Count 3.71 M/uL (4.2-5.4); White Blood Count 8.36 K/uL (4.8-10.8)
--- NOTE | 2019-04-20 07:33 | Hospitalist Progress Note ---
Date of Service April 20, 2019 Assessment & Plan (1) Seizure disorder: (1) Seizure disorder: Due to her prior CVAs. Brought in by son for altered mental status. Per patient, her right arm raise into the air and she was confused. Discussed with neuro and likely a small breakthrough seizure. Dilantin level was low, 6, on 04/16 Neurology consulted - Increased home Dilantin to 200mg PO BID, will need repeat Dilantin level in 3 weeks and follow-up with neurology in 3 to 4 weeks EEG without evidence of focal or generalized encephalopathy or epileptogenic activity Carotid doppler -- 50-69% stenosis L proximal internal carotid, R patent (2) Cellulitis: Keflex 500mg BID (renal-dosing). End date: 04/22. (3) Anemia: Microcytic Transferrin % - 3%, iron level low, 12, ferritinlow normal, 16.7 Patient with low H/H without identifiable cause-- possible need for EGD/colonoscopy as outpatient Was started on iron supplement (4) History of CVA (cerebrovascular accident): - in 2001 Continue home ASA, Crestor Carotid doppler as above (5) Diabetes mellitus: Hold home metformin -- may need increased at discharge to 1500-2000mg daily Long-acting insulin Sliding scale insulin (6) HTN (hypertension): Continue home losartan, coreg, amlodipine, lasix (7) Hypothyroid: TSH this admission was 1.5. Continue levothyroxine 75 mcg daily (8) Infestation by bed bug: Presumed bed bugs or lice- treated with permethrin x 3 (9) Carotid artery stenosis: Carotid doppler -- 50-69% stenosis L proximal internal carotid, R patent -Continue aspirin, statin -Should be monitored as an outpatient Subjective No acute events overnight. Patient is sitting in the chair, comfortable, in no acute distress. She denies any chest pain, shortness of breath, fevers, chills, abdominal pain, nausea or vomiting. 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 Review of Systems Review of Systems: All systems reviewed & are unremarkable except as noted in HPI & below Constitutional: no fever, no chills and no fatigue Respiratory: no cough, no chest congestion, no dyspnea and no pain on inspiration Cardiovascular: no chest pain, no dyspnea on exertion, no palpitations and no edema Gastrointestinal: no abdominal pain, no nausea and no vomiting Physical Exam Physical Exam: Elderly female sitting up in a chair, in no acute distress Constitutional: well developed and well nourished; no acute distress Eyes: PERRL, conjunctivae normal, anicteric sclerae EOM intact bilaterally ENMT: external ear and nose normal, oropharynx normal Neck: normal visual inspection Supple Respiratory: normal respiratory effort, lungs clear to auscultation no respiratory distress and no cough Auscultation: no rales, no rhonchi and no wheezes Cardiovascular: RRR, no murmur, no edema Heart Sounds: no gallop Chest (Breasts): Chest: normal inspection of chest Gastrointestinal (Abdomen): Inspection/Auscultation: abdomen normal to inspection and normal bowel sounds; abdomen not distended Percussion/Palpation: abdomen soft; abdomen nontender, no guarding and abdomen not rigid Musculoskeletal: Head/Neck/Chest: normocephalic, head atraumatic and neck supple Extremities: extremities normal to inspection (Except for superficial scratches especially on the right lower extremity, right upper extremity spasticity noted); no clubbing Skin: Trauma: + abrasion (Right lower extremity) Warm, dry Neurologic: Speech / Cognition: + abnormal speech (Dysarthria due to previous CVA) PERRL, EOMI, moves extremities spontaneously, right upper extremity spasticity noted Psychiatric: A+Ox3, euthymic affect Genitourinary: no CVA tenderness Lymphatic: no lymphedema Results & Data Vital Signs (Past 12 Hours) Vital Signs Temp Pulse Pulse Resp BP Pulse Ox 04/20/19 04:52 36.8 C 65 17 108/67 98 04/19/19 23:40 37.1 C 62 19 112/69 98 04/19/19 22:20 73 04/19/19 21:15 70 116/69 Laboratory Results 04/19/19 04/19/19 04/19/19 Range/Units 20:04 16:26 11:50 POC Glucose 198 H 165 H 206 H (70-99) Phenytoin (10-20) mcg/ml 04/19/19 04/19/19 04/18/19 Range/Units 08:00 07:51 20:05 POC Glucose 128 H 190 H (70-99) Phenytoin 7.9 L (10-20) mcg/ml Medications Administered Current Inpatient Medications Acetaminophen (Tylenol) 650 mg PO Q4H PRN PRN Reason: Pain or Fever Stop: 05/16/19 04:28 Al Hydrox/Mg Hydrox/Simethicone (Maalox) 15 ml PO Q4H PRN PRN Reason: Dyspepsia Stop: 05/16/19 04:28 Amlodipine Besylate (Norvasc) 10 mg PO DAILY [facility] Stop: 05/16/19 08:59 Last Admin: 04/19/19 09:55 Dose: 10 mg Documented by: Aspirin (Ecotrin Ectab) 81 mg PO DAILY [facility] Stop: 05/16/19 08:59 Last Admin: 04/19/19 09:55 Dose: 81 mg Documented by: Baclofen (Lioresal) 10 mg PO TID [facility] Stop: 05/16/19 08:59 Last Admin: 04/19/19 21:15 Dose: 10 mg Documented by: Carvedilol (Coreg) 25 mg PO QPM [facility] Stop: 05/16/19 20:59 Last Admin: 04/19/19 21:17 Dose: 25 mg Documented by: Carvedilol (Coreg) 50 mg PO QAM [facility] Stop: 05/16/19 08:59 Last Admin: 04/19/19 10:01 Dose: 50 mg Documented by: Cephalexin HCl (Keflex) 500 mg PO BID [facility]; Protocol Stop: 04/26/19 11:44 Last Admin: 04/19/19 21:15 Dose: 500 mg Documented by: Dextrose (Dextrose 50%) 25 - 50 ml IV UD PRN; Protocol PRN Reason: Hypoglycemia Protocol Stop: 05/16/19 04:28 Ferrous Sulfate (Feosol) 325 mg PO BIDM [facility] Stop: 05/18/19 16:59 Last Admin: 04/19/19 16:13 Dose: 325 mg Documented by: Furosemide (Lasix) 20 mg PO DAILY [facility] Stop: 05/16/19 08:59 Last Admin: 04/19/19 10:00 Dose: 20 mg Documented by: Glucagon (Glucagen) 1 mg SQ UD PRN; Protocol PRN Reason: Hypoglycemia Protocol Stop: 05/16/19 04:28 Glucose (Dex4 Glucose) 4 - 8 tabs PO UD PRN; Protocol PRN Reason: Hypoglycemia Protocol Stop: 05/16/19 04:28 Glucose (Glucose 40%) 15 - 30 gm PO UD PRN; Protocol PRN Reason: Hypoglycemia Protocol Stop: 05/16/19 04:28 Heparin Sodium (Porcine) (Heparin Sodium (Porcine)) 5,000 units SQ Q12 [facility] Stop: 05/16/19 08:59 Last Admin: 04/19/19 21:13 Dose: 5,000 units Documented by: Insulin Aspart (Novolog Flexpen) 0 units SC ACHS [facility] Stop: 05/16/19 11:59 Last Admin: 04/19/19 21:12 Dose: 2 units Documented by: Insulin Glargine (Lantus Solostar Pen) 13 units SC BID [facility] Stop: 05/16/19 08:59 Last Admin: 04/19/19 21:12 Dose: 13 units Documented by: Levothyroxine Sodium (Synthroid) 75 mcg PO DAILYBB [facility] Stop: 05/16/19 06:29 Last Admin: 04/20/19 06:26 Dose: 75 mcg Documented by: Losartan Potassium (Cozaar) 50 mg PO DAILY [facility] Stop: 05/16/19 08:59 Last Admin: 04/19/19 09:55 Dose: 50 mg Documented by: Magnesium Hydroxide (Milk Of Magnesia) 30 ml PO Q12H PRN PRN Reason: Constipation Stop: 05/16/19 04:28 Miscellaneous (Carbohydrates For Hypoglycemia) 15 - 30 gm PO UD PRN PRN Reason: Hypoglycemia Protocol Stop: 05/16/19 04:28 Ondansetron HCl (Zofran) 4 mg IV Q6H PRN PRN Reason: Nausea Stop: 05/16/19 04:28 Permethrin (Lice Treatment) 59 ml TOP ONE ONE Stop: 04/20/19 10:01 Phenytoin Sodium (Dilantin Er) 200 mg PO BID [facility] Stop: 05/17/19 20:59 Last Admin: 04/19/19 21:16 Dose: 200 mg Documented by: Polyethylene Glycol (Miralax Powder Packet) 17 gm PO DAILY PRN PRN Reason: Constipation Stop: 05/16/19 04:28 Rosuvastatin Calcium (Crestor) 40 mg PO HS [facility] Stop: 05/16/19 20:59 Last Admin: 04/19/19 21:17 Dose: 40 mg Documented by: Tolterodine Tartrate (Detrol La) 4 mg PO DAILY [facility] Stop: 05/16/19 08:59 Last Admin: 04/19/19 09:55 Dose: 4 mg Documented by:
[2019-04-20] MEDS: FERROUS SULFATE 325 MG TAB PO SCH ×2 (07:57→17:24)
[2019-04-20] MEDS: carvediloL 25 MG TAB PO SCH ×2 (07:58→20:16)
[2019-04-20] MEDS: TOLTERODINE TARTRATE LA 4 MG CAPCR PO SCH (07:59)
[2019-04-20] MEDS: PHENYTOIN SODIUM ER 100 MG CAP PO SCH ×2 (07:59→20:17)
[2019-04-20] MEDS: LOSARTAN POTASSIUM 50 MG TAB PO SCH (07:59)
[2019-04-20] MEDS: ASPIRIN 81 MG ECTAB PO SCH (08:00)
[2019-04-20] MEDS: cephALEXin 500 MG CAP PO SCH ×2 (08:00→20:17)
[2019-04-20] MEDS: BACLOFEN 10 MG TAB PO SCH ×3 (08:01→20:18)
[2019-04-20] MEDS: AMLODIPINE BESYLATE 5 MG TAB PO SCH (08:01)
[2019-04-20] MEDS: FUROSEMIDE 20 MG TAB PO SCH (08:01)
[2019-04-20 08:03] LABS: BUN Creatinine Ratio 30.2 (10-20); Calcium 9.2 mg/dl (8.5-10.1); Creatinine Clr Calc Pharmacy 46.8 ml/min; Est GFR (Non-African American) 55.2; Potassium 3.6 mmol/L (3.5-5.1)
[2019-04-20] MEDS: INSULIN ASPART 100 UNITS/ML 3 ML PEN SC SCH ×4 (08:04→20:22)
[2019-04-20] MEDS: INSULIN GLARGINE SOLOSTAR 100 UNITS/ML 3 ML PEN SC SCH ×2 (08:05→20:20)
[2019-04-20] MEDS: HEPARIN SOD 5,000 UNIT/0.5 ML VIAL SQ SCH ×2 (08:06→20:19)
[2019-04-20] MEDS ORDERED: PERMETHRIN 59 ML LIQUID BTL TOP ONE (10:00)
[2019-04-20] MEDS: ROSUVASTATIN CALCIUM 20 MG TAB PO SCH (20:16)
[2019-04-21] MEDS: LEVOTHYROXINE SODIUM 75 MCG TABLET PO SCH (06:42)
[2019-04-21] MEDS: AMLODIPINE BESYLATE 5 MG TAB PO SCH (09:32)
[2019-04-21] MEDS: BACLOFEN 10 MG TAB PO SCH ×3 (09:33→20:26)
[2019-04-21] MEDS: LOSARTAN POTASSIUM 50 MG TAB PO SCH (09:33)
[2019-04-21] MEDS: TOLTERODINE TARTRATE LA 4 MG CAPCR PO SCH (09:34)
[2019-04-21] MEDS: FUROSEMIDE 20 MG TAB PO SCH (09:34)
[2019-04-21] MEDS: carvediloL 25 MG TAB PO SCH ×2 (09:36→20:25)
[2019-04-21] MEDS: cephALEXin 500 MG CAP PO SCH ×2 (09:37→20:25)
[2019-04-21] MEDS: PHENYTOIN SODIUM ER 100 MG CAP PO SCH ×2 (09:37→20:26)
[2019-04-21] MEDS: ASPIRIN 81 MG ECTAB PO SCH (09:38)
[2019-04-21] MEDS: FERROUS SULFATE 325 MG TAB PO SCH ×2 (09:38→17:34)
[2019-04-21] MEDS: INSULIN ASPART 100 UNITS/ML 3 ML PEN SC SCH ×4 (09:52→20:30)
[2019-04-21] MEDS: INSULIN GLARGINE SOLOSTAR 100 UNITS/ML 3 ML PEN SC SCH ×2 (09:53→20:31)
[2019-04-21] MEDS: HEPARIN SOD 5,000 UNIT/0.5 ML VIAL SQ SCH ×2 (09:54→20:29)
--- NOTE | 2019-04-21 18:46 | Hospitalist Progress Note ---
Date of Service April 21, 2019 Assessment & Plan (1) Seizure disorder: (1) Seizure disorder: Due to her prior CVAs. Brought in by son for altered mental status. Per patient, her right arm raise into the air and she was confused. Discussed with neuro and likely a small breakthrough seizure. Dilantin level was low, 6, on 04/16 Neurology consulted - Increased home Dilantin to 200mg PO BID, will need repeat Dilantin level in 3 weeks and follow-up with neurology in 3 to 4 weeks EEG without evidence of focal or generalized encephalopathy or epileptogenic activity Carotid doppler -- 50-69% stenosis L proximal internal carotid, R patent (2) Cellulitis: Keflex 500mg BID (renal-dosing). End date: 04/22. (3) Anemia: Microcytic Transferrin % - 3%, iron level low, 12, ferritinlow normal, 16.7 Patient with low H/H without identifiable cause-- possible need for EGD/colonoscopy as outpatient Was started on iron supplement (4) History of CVA (cerebrovascular accident): - in 2001 Continue home ASA, Crestor Carotid doppler as above (5) Diabetes mellitus: Hold home metformin -- may need increased at discharge to 1500-2000mg daily Long-acting insulin Sliding scale insulin (6) HTN (hypertension): Continue home losartan, coreg, amlodipine, lasix (7) Hypothyroid: TSH this admission was 1.5. Continue levothyroxine 75 mcg daily (8) Infestation by bed bug: Presumed bed bugs or lice- treated with permethrin x 3 (9) Carotid artery stenosis: Carotid doppler -- 50-69% stenosis L proximal internal carotid, R patent -Continue aspirin, statin -Should be monitored as an outpatient Dispo: Likely to [facility] [place] (per CM) Subjective No acute events overnight. Patient is lying in bed, comfortable, in no acute distress. She denies any chest pain, shortness of breath, fevers, chills, abdominal pain, nausea or vomiting. 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 Review of Systems Review of Systems: All systems reviewed & are unremarkable except as noted in HPI & below Constitutional: no fever, no chills and no fatigue Respiratory: no cough, no dyspnea and no pain on inspiration Cardiovascular: no chest pain, no radiating jaw, neck or arm pain, no palpitations and no edema Gastrointestinal: no abdominal pain, no nausea and no vomiting Physical Exam Constitutional: well developed and well nourished; no acute distress Eyes: PERRL, conjunctivae normal, anicteric sclerae EOM intact bilaterally ENMT: external ear and nose normal, oropharynx normal Neck: normal visual inspection Respiratory: normal respiratory effort, lungs clear to auscultation no respiratory distress and no cough Auscultation: no rales, no rhonchi and no wheezes Cardiovascular: RRR, no murmur, no edema Heart Sounds: no gallop Chest (Breasts): Chest: normal inspection of chest Gastrointestinal (Abdomen): Inspection/Auscultation: abdomen normal to inspection and normal bowel sounds; abdomen not distended Percussion/Palpation: abdomen soft; abdomen nontender, no guarding and abdomen not rigid Musculoskeletal: Head/Neck/Chest: normocephalic, head atraumatic and neck supple Extremities: extremities normal to inspection (Except for superficial scratches especially on the right lower extremity, right upper extremity spasticity noted); no clubbing Skin: Trauma: + abrasion (Right lower extremity) Neurologic: Speech / Cognition: + abnormal speech (Dysarthria due to previous CVA) Psychiatric: A+Ox3, euthymic affect Genitourinary: no CVA tenderness Lymphatic: no lymphedema Results & Data Vital Signs (Past 12 Hours) Vital Signs Temp Pulse Pulse Resp BP Pulse Ox 04/21/19 16:30 73 04/21/19 15:52 37.1 C 75 18 114/70 95 04/21/19 07:43 63 Laboratory Results 04/21/19 04/21/19 04/21/19 Range/Units 16:31 11:32 07:50 POC Glucose 184 H 169 H 138 H (70-99) 04/20/19 Range/Units 20:06 POC Glucose 177 H (70-99) Medications Administered Current Inpatient Medications Acetaminophen (Tylenol) 650 mg PO Q4H PRN PRN Reason: Pain or Fever Stop: 05/16/19 04:28 Al Hydrox/Mg Hydrox/Simethicone (Maalox) 15 ml PO Q4H PRN PRN Reason: Dyspepsia Stop: 05/16/19 04:28 Amlodipine Besylate (Norvasc) 10 mg PO DAILY [facility] Stop: 05/16/19 08:59 Last Admin: 04/21/19 09:32 Dose: 10 mg Documented by: Aspirin (Ecotrin Ectab) 81 mg PO DAILY [facility] Stop: 05/16/19 08:59 Last Admin: 04/21/19 09:38 Dose: 81 mg Documented by: Baclofen (Lioresal) 10 mg PO TID [facility] Stop: 05/16/19 08:59 Last Admin: 04/21/19 14:05 Dose: 10 mg Documented by: Carvedilol (Coreg) 25 mg PO QPM [facility] Stop: 05/16/19 20:59 Last Admin: 04/20/19 20:16 Dose: 25 mg Documented by: Carvedilol (Coreg) 50 mg PO QAM [facility] Stop: 05/16/19 08:59 Last Admin: 04/21/19 09:36 Dose: 50 mg Documented by: Cephalexin HCl (Keflex) 500 mg PO BID [facility]; Protocol Stop: 04/26/19 11:44 Last Admin: 04/21/19 09:37 Dose: 500 mg Documented by: Dextrose (Dextrose 50%) 25 - 50 ml IV UD PRN; Protocol PRN Reason: Hypoglycemia Protocol Stop: 05/16/19 04:28 Ferrous Sulfate (Feosol) 325 mg PO BIDM [facility] Stop: 05/18/19 16:59 Last Admin: 04/21/19 17:34 Dose: 325 mg Documented by: Furosemide (Lasix) 20 mg PO DAILY [facility] Stop: 05/16/19 08:59 Last Admin: 04/21/19 09:34 Dose: 20 mg Documented by: Glucagon (Glucagen) 1 mg SQ UD PRN; Protocol PRN Reason: Hypoglycemia Protocol Stop: 05/16/19 04:28 Glucose (Dex4 Glucose) 4 - 8 tabs PO UD PRN; Protocol PRN Reason: Hypoglycemia Protocol Stop: 05/16/19 04:28 Glucose (Glucose 40%) 15 - 30 gm PO UD PRN; Protocol PRN Reason: Hypoglycemia Protocol Stop: 05/16/19 04:28 Heparin Sodium (Porcine) (Heparin Sodium (Porcine)) 5,000 units SQ Q12 [facility] Stop: 05/16/19 08:59 Last Admin: 04/21/19 09:54 Dose: 5,000 units Documented by: Insulin Aspart (Novolog Flexpen) 0 units SC ACHS [facility] Stop: 05/16/19 11:59 Last Admin: 04/21/19 17:33 Dose: 5 units Documented by: Insulin Glargine (Lantus Solostar Pen) 13 units SC BID [facility] Stop: 05/16/19 08:59 Last Admin: 04/21/19 09:53 Dose: 13 units Documented by: Levothyroxine Sodium (Synthroid) 75 mcg PO DAILYBB [facility] Stop: 05/16/19 06:29 Last Admin: 04/21/19 06:42 Dose: 75 mcg Documented by: Losartan Potassium (Cozaar) 50 mg PO DAILY [facility] Stop: 05/16/19 08:59 Last Admin: 04/21/19 09:33 Dose: 50 mg Documented by: Magnesium Hydroxide (Milk Of Magnesia) 30 ml PO Q12H PRN PRN Reason: Constipation Stop: 05/16/19 04:28 Miscellaneous (Carbohydrates For Hypoglycemia) 15 - 30 gm PO UD PRN PRN Reason: Hypoglycemia Protocol Stop: 05/16/19 04:28 Ondansetron HCl (Zofran) 4 mg IV Q6H PRN PRN Reason: Nausea Stop: 05/16/19 04:28 Phenytoin Sodium (Dilantin Er) 200 mg PO BID [facility] Stop: 05/17/19 20:59 Last Admin: 04/21/19 09:37 Dose: 200 mg Documented by: Polyethylene Glycol (Miralax Powder Packet) 17 gm PO DAILY PRN PRN Reason: Constipation Stop: 05/16/19 04:28 Rosuvastatin Calcium (Crestor) 40 mg PO HS [facility] Stop: 05/16/19 20:59 Last Admin: 04/20/19 20:16 Dose: 40 mg Documented by: Tolterodine Tartrate (Detrol La) 4 mg PO DAILY [facility] Stop: 05/16/19 08:59 Last Admin: 04/21/19 09:34 Dose: 4 mg Documented by:
[2019-04-21] MEDS: ROSUVASTATIN CALCIUM 20 MG TAB PO SCH (20:27)
[2019-04-22] MEDS: LEVOTHYROXINE SODIUM 75 MCG TABLET PO SCH (06:07)
--- NOTE | 2019-04-22 07:18 | Hospitalist Progress Note ---
Date of Service April 22, 2019 Assessment & Plan (1) Seizure disorder: (1) Seizure disorder: Due to her prior CVAs. Brought in by son for altered mental status. Per patient, her right arm raise into the air and she was confused. Discussed with neuro and likely a small breakthrough seizure. Dilantin level was low, 6, on 04/16 Neurology consulted - Increased home Dilantin to 200mg PO BID, will need repeat Dilantin level in 3 weeks and follow-up with neurology in 3 to 4 weeks EEG without evidence of focal or generalized encephalopathy or epileptogenic activity Carotid doppler -- 50-69% stenosis L proximal internal carotid, R patent (2) Cellulitis: Keflex 500mg BID (renal-dosing). End date: 04/22. (3) Anemia: Microcytic Transferrin % - 3%, iron level low, 12, ferritinlow normal, 16.7 Patient with low H/H without identifiable cause-- possible need for EGD/colonoscopy as outpatient Was started on iron supplement (4) Elevated Cr - today 1.28 (up from ~1) - will give gentle hydration, and will monitor renal function (5) History of CVA (cerebrovascular accident): - in 2001 Continue home ASA, Crestor Carotid doppler as above (6) Diabetes mellitus: Hold home metformin -- may need increased at discharge to 1500-2000mg daily Long-acting insulin Sliding scale insulin (7) HTN (hypertension): Continue home losartan, coreg, amlodipine, lasix (8) Hypothyroid: TSH this admission was 1.5. Continue levothyroxine 75 mcg daily (9) Infestation by bed bug: Presumed bed bugs or lice- treated with permethrin x 3 (10) Carotid artery stenosis: Carotid doppler -- 50-69% stenosis L proximal internal carotid, R patent -Continue aspirin, statin -Should be monitored as an outpatient Dispo: Likely to [facility] (per CM) Subjective No acute events overnight. Patient is in no acute distress, comfortable. She denies any chest pain, shortness of breath, fevers, chills, abdominal pain, nausea or vomiting. Pt has some dysarthria, and right upper extremity spasticity from previous CVA. Review of Systems Review of Systems: All systems reviewed & are unremarkable except as noted in HPI & below Constitutional: no fever and no chills Respiratory: no cough and no dyspnea Cardiovascular: no chest pain, no palpitations and no edema Gastrointestinal: no abdominal pain, no nausea and no vomiting Physical Exam Constitutional: well developed and well nourished; no acute distress Eyes: PERRL, conjunctivae normal, anicteric sclerae EOM intact bilaterally ENMT: external ear and nose normal, oropharynx normal Neck: normal visual inspection Respiratory: normal respiratory effort, lungs clear to auscultation no respiratory distress and no cough Auscultation: no rales, no rhonchi and no wheezes Cardiovascular: RRR, no murmur, no edema Heart Sounds: no gallop Chest (Breasts): Chest: normal inspection of chest Gastrointestinal (Abdomen): Inspection/Auscultation: abdomen normal to inspection and normal bowel sounds; abdomen not distended Percussion/Palpation: abdomen soft; abdomen nontender, no guarding and abdomen not rigid Musculoskeletal: Head/Neck/Chest: normocephalic, head atraumatic and neck supple Extremities: extremities normal to inspection (Except for superficial scratches especially on the right lower extremity, right upper extremity spasticity noted); no clubbing Skin: Trauma: + abrasion (Right lower extremity) Neurologic: Speech / Cognition: + abnormal speech (Dysarthria due to previous CVA) Psychiatric: A+Ox3, euthymic affect Genitourinary: no CVA tenderness Lymphatic: no lymphedema Results & Data Vital Signs (Past 12 Hours) Vital Signs Temp Pulse Resp BP Pulse Ox 04/22/19 04:00 36.8 C 82 20 110/65 97 04/21/19 23:00 37.2 C 81 20 120/72 95 Laboratory Results 04/22/19 04/22/19 04/22/19 Range/Units 16:40 16:01 11:54 Sodium 134 L (136-145) mmol/L Potassium 4.1 (3.5-5.1) mmol/L Chloride 103 (98-107) mmol/L Carbon Dioxide 28 (21-32) mmol/L Anion Gap 3.0 (3-11) BUN 39 H (7-18) mg/dl Creatinine 1.28 H (0.6-1.2) mg/dl Est Cr Clr Drug Dosing 36.9 ml/min Est GFR ( Amer) 48.0 Est GFR (Non-Af Amer) 41.4 BUN/Creatinine Ratio 30.7 H (10-20) Glucose 195 H (70-99) mg/dl POC Glucose 208 H 171 H (70-99) Calcium 9.0 (8.5-10.1) mg/dl 04/22/19 04/21/19 Range/Units 07:38 20:21 Sodium (136-145) mmol/L Potassium (3.5-5.1) mmol/L Chloride (98-107) mmol/L Carbon Dioxide (21-32) mmol/L Anion Gap (3-11) BUN (7-18) mg/dl Creatinine (0.6-1.2) mg/dl Est Cr Clr Drug Dosing ml/min Est GFR ( Amer) Est GFR (Non-Af Amer) BUN/Creatinine Ratio (10-20) Glucose (70-99) mg/dl POC Glucose 127 H 163 H (70-99) Calcium (8.5-10.1) mg/dl 04/21/19 04/21/19 04/21/19 Range/Units 20:21 16:31 11:32 POC Glucose 163 H 184 H 169 H (70-99) 04/21/19 Range/Units 07:50 POC Glucose 138 H (70-99) Medications Administered Current Inpatient Medications Acetaminophen (Tylenol) 650 mg PO Q4H PRN PRN Reason: Pain or Fever Stop: 05/16/19 04:28 Al Hydrox/Mg Hydrox/Simethicone (Maalox) 15 ml PO Q4H PRN PRN Reason: Dyspepsia Stop: 05/16/19 04:28 Amlodipine Besylate (Norvasc) 10 mg PO DAILY [facility] Stop: 05/16/19 08:59 Last Admin: 04/21/19 09:32 Dose: 10 mg Documented by: Aspirin (Ecotrin Ectab) 81 mg PO DAILY [facility] Stop: 05/16/19 08:59 Last Admin: 04/21/19 09:38 Dose: 81 mg Documented by: Baclofen (Lioresal) 10 mg PO TID [facility] Stop: 05/16/19 08:59 Last Admin: 04/21/19 20:26 Dose: 10 mg Documented by: Carvedilol (Coreg) 25 mg PO QPM [facility] Stop: 05/16/19 20:59 Last Admin: 04/21/19 20:25 Dose: 25 mg Documented by: Carvedilol (Coreg) 50 mg PO QAM [facility] Stop: 05/16/19 08:59 Last Admin: 04/21/19 09:36 Dose: 50 mg Documented by: Cephalexin HCl (Keflex) 500 mg PO BID [facility]; Protocol Stop: 04/26/19 11:44 Last Admin: 04/21/19 20:25 Dose: 500 mg Documented by: Dextrose (Dextrose 50%) 25 - 50 ml IV UD PRN; Protocol PRN Reason: Hypoglycemia Protocol Stop: 05/16/19 04:28 Ferrous Sulfate (Feosol) 325 mg PO BIDM [facility] Stop: 05/18/19 16:59 Last Admin: 04/21/19 17:34 Dose: 325 mg Documented by: Furosemide (Lasix) 20 mg PO DAILY [facility] Stop: 05/16/19 08:59 Last Admin: 04/21/19 09:34 Dose: 20 mg Documented by: Glucagon (Glucagen) 1 mg SQ UD PRN; Protocol PRN Reason: Hypoglycemia Protocol Stop: 05/16/19 04:28 Glucose (Dex4 Glucose) 4 - 8 tabs PO UD PRN; Protocol PRN Reason: Hypoglycemia Protocol Stop: 05/16/19 04:28 Glucose (Glucose 40%) 15 - 30 gm PO UD PRN; Protocol PRN Reason: Hypoglycemia Protocol Stop: 05/16/19 04:28 Heparin Sodium (Porcine) (Heparin Sodium (Porcine)) 5,000 units SQ Q12 [facility] Stop: 05/16/19 08:59 Last Admin: 04/21/19 20:29 Dose: 5,000 units Documented by: Insulin Aspart (Novolog Flexpen) 0 units SC ACHS [facility] Stop: 05/16/19 11:59 Last Admin: 04/21/19 20:30 Dose: 1 units Documented by: Insulin Glargine (Lantus Solostar Pen) 13 units SC BID [facility] Stop: 05/16/19 08:59 Last Admin: 04/21/19 20:31 Dose: 13 units Documented by: Levothyroxine Sodium (Synthroid) 75 mcg PO DAILYBB [facility] Stop: 05/16/19 06:29 Last Admin: 04/22/19 06:07 Dose: 75 mcg Documented by: Losartan Potassium (Cozaar) 50 mg PO DAILY [facility] Stop: 05/16/19 08:59 Last Admin: 04/21/19 09:33 Dose: 50 mg Documented by: Magnesium Hydroxide (Milk Of Magnesia) 30 ml PO Q12H PRN PRN Reason: Constipation Stop: 05/16/19 04:28 Miscellaneous (Carbohydrates For Hypoglycemia) 15 - 30 gm PO UD PRN PRN Reason: Hypoglycemia Protocol Stop: 05/16/19 04:28 Ondansetron HCl (Zofran) 4 mg IV Q6H PRN PRN Reason: Nausea Stop: 05/16/19 04:28 Phenytoin Sodium (Dilantin Er) 200 mg PO BID [facility] Stop: 05/17/19 20:59 Last Admin: 04/21/19 20:26 Dose: 200 mg Documented by: Polyethylene Glycol (Miralax Powder Packet) 17 gm PO DAILY PRN PRN Reason: Constipation Stop: 05/16/19 04:28 Rosuvastatin Calcium (Crestor) 40 mg PO HS [facility] Stop: 05/16/19 20:59 Last Admin: 04/21/19 20:27 Dose: 40 mg Documented by: Tolterodine Tartrate (Detrol La) 4 mg PO DAILY [facility] Stop: 05/16/19 08:59 Last Admin: 04/21/19 09:34 Dose: 4 mg Documented by:
[2019-04-22] MEDS: INSULIN ASPART 100 UNITS/ML 3 ML PEN SC SCH ×4 (08:53→20:23)
[2019-04-22] MEDS: BACLOFEN 10 MG TAB PO SCH ×3 (08:53→20:23)
[2019-04-22] MEDS: PHENYTOIN SODIUM ER 100 MG CAP PO SCH ×2 (08:54→20:20)
[2019-04-22] MEDS: LOSARTAN POTASSIUM 50 MG TAB PO SCH (08:54)
[2019-04-22] MEDS: ASPIRIN 81 MG ECTAB PO SCH (08:54)
[2019-04-22] MEDS: AMLODIPINE BESYLATE 5 MG TAB PO SCH (08:54)
[2019-04-22] MEDS: TOLTERODINE TARTRATE LA 4 MG CAPCR PO SCH (08:54)
[2019-04-22] MEDS: cephALEXin 500 MG CAP PO SCH ×2 (08:55→20:22)
[2019-04-22] MEDS: carvediloL 25 MG TAB PO SCH ×2 (08:55→20:20)
[2019-04-22] MEDS: FERROUS SULFATE 325 MG TAB PO SCH ×2 (08:56→17:19)
[2019-04-22] MEDS: HEPARIN SOD 5,000 UNIT/0.5 ML VIAL SQ SCH ×2 (08:56→20:20)
[2019-04-22] MEDS: INSULIN GLARGINE SOLOSTAR 100 UNITS/ML 3 ML PEN SC SCH ×2 (08:57→20:24)
[2019-04-22] MEDS: FUROSEMIDE 20 MG TAB PO SCH (08:57)
[2019-04-22 16:47] LABS: BUN Creatinine Ratio 30.7 (10-20); Creatinine Clr Calc Pharmacy 36.9 ml/min; Est GFR (Non-African American) 41.4; Potassium 4.1 mmol/L (3.5-5.1)
[2019-04-22] MEDS: SODIUM CHLORIDE 0.9% 1000ML 1,000 ML IV SCH (19:14)
[2019-04-22] MEDS: ROSUVASTATIN CALCIUM 20 MG TAB PO SCH (20:23)
[2019-04-23] MEDS: LEVOTHYROXINE SODIUM 75 MCG TABLET PO SCH (06:21)
[2019-04-23 07:17] LABS: BUN Creatinine Ratio 34.7 (10-20); Calcium 8.5 mg/dl (8.5-10.1); Creatinine Clr Calc Pharmacy 48.7 ml/min; Est GFR (African American) 67.2; Est GFR (Non-African American) 57.9; Potassium 3.8 mmol/L (3.5-5.1)
[2019-04-23] MEDS: INSULIN ASPART 100 UNITS/ML 3 ML PEN SC SCH ×4 (07:57→20:44)
[2019-04-23] MEDS: INSULIN GLARGINE SOLOSTAR 100 UNITS/ML 3 ML PEN SC SCH ×2 (07:57→20:56)
[2019-04-23] MEDS: AMLODIPINE BESYLATE 5 MG TAB PO SCH (07:58)
[2019-04-23] MEDS: HEPARIN SOD 5,000 UNIT/0.5 ML VIAL SQ SCH ×2 (07:58→20:55)
[2019-04-23] MEDS: ASPIRIN 81 MG ECTAB PO SCH (07:59)
[2019-04-23] MEDS: TOLTERODINE TARTRATE LA 4 MG CAPCR PO SCH (07:59)
[2019-04-23] MEDS: FERROUS SULFATE 325 MG TAB PO SCH ×2 (07:59→18:40)
[2019-04-23] MEDS: cephALEXin 500 MG CAP PO SCH (07:59)
[2019-04-23] MEDS: BACLOFEN 10 MG TAB PO SCH ×3 (07:59→20:55)
[2019-04-23] MEDS: PHENYTOIN SODIUM ER 100 MG CAP PO SCH ×2 (07:59→20:57)
[2019-04-23] MEDS: carvediloL 25 MG TAB PO SCH ×2 (07:59→20:55)
[2019-04-23] MEDS: LOSARTAN POTASSIUM 50 MG TAB PO SCH (07:59)
[2019-04-23] MEDS ORDERED: METFORMIN HCL ER 500 MG TABCR PO SCH (08:00)
[2019-04-23] MEDS: SODIUM CHLORIDE 0.9% 1000ML 1,000 ML IV SCH (08:00)
--- NOTE | 2019-04-23 08:31 | Hospitalist Progress Note ---
Date of Service April 23, 2019 Assessment & Plan (1) Seizure disorder: (1) Seizure disorder: Due to her prior CVAs. Brought in by son for altered mental status. Per patient, her right arm raise into the air and she was confused. Discussed with neuro and likely a small breakthrough seizure. Dilantin level was low, 6, on 04/16 Neurology consulted - Increased home Dilantin to 200mg PO BID, will need repeat Dilantin level in 3 weeks and follow-up with neurology in 3 to 4 weeks EEG without evidence of focal or generalized encephalopathy or epileptogenic activity Carotid doppler -- 50-69% stenosis L proximal internal carotid, R patent (2) Cellulitis: Keflex 500mg BID (renal-dosing). End date: 04/22 (discontinued) (3) Anemia: Microcytic Transferrin % - 3%, iron level low, 12, ferritinlow normal, 16.7 Patient with low H/H without identifiable cause-- possible need for EGD/colonoscopy as outpatient Was started on iron supplement (4) Elevated Cr/ ANDREW - now resolved - yesterday 1.28 (up from ~1), currently <1 - gave gentle hydration, and will cont. to monitor renal function (5) History of CVA (cerebrovascular accident): - in 2001 Continue home ASA, Crestor Carotid doppler as above (6) Diabetes mellitus: Held home metformin during admission -- may need increased at discharge to 1500- 2000mg daily -tried her today on 500 mg, patient then had emesis, unsure if this is due to metformin, however for now will hold Long-acting insulin Sliding scale insulin (7) HTN (hypertension): Continue home losartan, coreg, amlodipine, lasix (8) Hypothyroid: TSH this admission was 1.5. Continue levothyroxine 75 mcg daily (9) Infestation by bed bug: Presumed bed bugs or lice- treated with permethrin x 3 (10) Carotid artery stenosis: Carotid doppler -- 50-69% stenosis L proximal internal carotid, R patent -Continue aspirin, statin -Should be monitored as an outpatient Dispo: Likely to [facility] (per CM) Subjective No acute events overnight. However patient had nausea, and vomited earlier today. Currently she feels well sitting up in the bed, denies any nausea or abdominal pain, says she feels well. She also denies any chest pain, shortness of breath, fevers, chills. Restarted patient on metformin, wonder if that has upset her stomach. Pt has some dysarthria, and right upper extremity spasticity from previous CVA. Review of Systems Review of Systems: All systems reviewed & are unremarkable except as noted in HPI & below Constitutional: no fever, no chills, no body aches and no fatigue Respiratory: no cough, no dyspnea and no pain on inspiration Cardiovascular: no chest pain, no dyspnea on exertion, no palpitations and no edema Gastrointestinal: + nausea and + vomiting; no abdominal pain Physical Exam Constitutional: well developed and well nourished; no acute distress Eyes: PERRL, conjunctivae normal, anicteric sclerae EOM intact bilaterally ENMT: external ear and nose normal, oropharynx normal Neck: normal visual inspection Respiratory: normal respiratory effort, lungs clear to auscultation no respiratory distress and no cough Auscultation: no rales, no rhonchi and no wheezes Cardiovascular: RRR, no murmur, no edema Heart Sounds: no gallop Chest (Breasts): Chest: normal inspection of chest Gastrointestinal (Abdomen): Inspection/Auscultation: abdomen normal to inspection and normal bowel sounds; abdomen not distended Percussion/ Palpation: abdomen soft; abdomen nontender, no guarding and abdomen not rigid Musculoskeletal: Head/Neck/Chest: normocephalic, head atraumatic and neck supple Extremities: extremities normal to inspection (Except for superficial scratches especially on the right lower extremity, right upper extremity spast icity noted); no clubbing Skin: Trauma: + abrasion (Right lower extremity) Neurologic: Speech / Cognition: + abnormal speech (Dysarthria due to previous CVA) Psychiatric: A+Ox3, euthymic affect Genitourinary: no CVA tenderness Lymphatic: no lymphedema Results & Data Vital Signs (Past 12 Hours) Vital Signs Temp Pulse Resp BP Pulse Ox 04/23/19 07:18 36.6 C 64 18 132/74 99 04/22/19 23:10 36.8 C 66 20 149/72 H 100 Laboratory Results 04/23/19 04/22/19 04/22/19 Range/Units 06:27 20:09 16:40 Sodium 137 (136-145) mmol/L Potassium 3.8 (3.5-5.1) mmol/L Chloride 106 (98-107) mmol/L Carbon Dioxide 26 (21-32) mmol/L Anion Gap 5.0 (3-11) BUN 34 H (7-18) mg/dl Creatinine 0.97 D (0.6-1.2) mg/dl Est Cr Clr Drug Dosing 48.7 ml/min Est GFR ( Amer) 67.2 Est GFR (Non-Af Amer) 57.9 BUN/Creatinine Ratio 34.7 H (10-20) Glucose 136 H (70-99) mg/dl POC Glucose 217 H 208 H (70-99) Calcium 8.5 (8.5-10.1) mg/dl Magnesium 2.0 (1.8-2.4) mg/dl 04/22/19 04/22/19 Range/Units 16:01 11:54 Sodium 134 L (136-145) mmol/L Potassium 4.1 (3.5-5.1) mmol/L Chloride 103 (98-107) mmol/L Carbon Dioxide 28 (21-32) mmol/L Anion Gap 3.0 (3-11) BUN 39 H (7-18) mg/dl Creatinine 1.28 H (0.6-1.2) mg/dl Est Cr Clr Drug Dosing 36.9 ml/min Est GFR ( Amer) 48.0 Est GFR (Non-Af Amer) 41.4 BUN/Creatinine Ratio 30.7 H (10-20) Glucose 195 H (70-99) mg/dl POC Glucose 171 H (70-99) Calcium 9.0 (8.5-10.1) mg/dl Magnesium (1.8-2.4) mg/dl Medications Administered Current Inpatient Medications Acetaminophen (Tylenol) 650 mg PO Q4H PRN PRN Reason: Pain or Fever Stop: 05/16/19 04:28 Al Hydrox/Mg Hydrox/Simethicone (Maalox) 15 ml PO Q4H PRN PRN Reason: Dyspepsia Stop: 05/16/19 04:28 Amlodipine Besylate (Norvasc) 10 mg PO DAILY [facility] Stop: 05/16/19 08:59 Last Admin: 04/23/19 07:58 Dose: 10 mg Documented by: Aspirin (Ecotrin Ectab) 81 mg PO DAILY [facility] Stop: 05/16/19 08:59 Last Admin: 04/23/19 07:59 Dose: 81 mg Documented by: Baclofen (Lioresal) 10 mg PO TID [facility] Stop: 05/16/19 08:59 Last Admin: 04/23/19 07:59 Dose: 10 mg Documented by: Carvedilol (Coreg) 25 mg PO QPM [facility] Stop: 05/16/19 20:59 Last Admin: 04/22/19 20:20 Dose: 25 mg Documented by: Carvedilol (Coreg) 50 mg PO QAM [facility] Stop: 05/16/19 08:59 Last Admin: 04/23/19 07:59 Dose: 50 mg Documented by: Cephalexin HCl (Keflex) 500 mg PO BID [facility]; Protocol Stop: 04/26/19 11:44 Last Admin: 04/23/19 07:59 Dose: 500 mg Documented by: Dextrose (Dextrose 50%) 25 - 50 ml IV UD PRN; Protocol PRN Reason: Hypoglycemia Protocol Stop: 05/16/19 04:28 Ferrous Sulfate (Feosol) 325 mg PO BIDM [facility] Stop: 05/18/19 16:59 Last Admin: 04/23/19 07:59 Dose: 325 mg Documented by: Glucagon (Glucagen) 1 mg SQ UD PRN; Protocol PRN Reason: Hypoglycemia Protocol Stop: 05/16/19 04:28 Glucose (Dex4 Glucose) 4 - 8 tabs PO UD PRN; Protocol PRN Reason: Hypoglycemia Protocol Stop: 05/16/19 04:28 Glucose (Glucose 40%) 15 - 30 gm PO UD PRN; Protocol PRN Reason: Hypoglycemia Protocol Stop: 05/16/19 04:28 Heparin Sodium (Porcine) (Heparin Sodium (Porcine)) 5,000 units SQ Q12 [facility] Stop: 05/16/19 08:59 Last Admin: 04/23/19 07:58 Dose: 5,000 units Documented by: Sodium Chloride (Nss 1000ml) 1,000 mls @ 80 mls/hr IV .[id number] [facility] Stop: 05/22/19 19:14 Last Admin: 04/23/19 08:00 Dose: 80 mls/hr Documented by: Insulin Aspart (Novolog Flexpen) 0 units SC ACHS [facility] Stop: 05/16/19 11:59 Last Admin: 04/23/19 07:57 Dose: 8 units Documented by: Insulin Glargine (Lantus Solostar Pen) 13 units SC BID [facility] Stop: 05/16/19 08:59 Last Admin: 04/23/19 07:57 Dose: 13 units Documented by: Levothyroxine Sodium (Synthroid) 75 mcg PO DAILYBB [facility] Stop: 05/16/19 06:29 Last Admin: 04/23/19 06:21 Dose: 75 mcg Documented by: Losartan Potassium (Cozaar) 50 mg PO DAILY [facility] Stop: 05/16/19 08:59 Last Admin: 04/23/19 07:59 Dose: 50 mg Documented by: Magnesium Hydroxide (Milk Of Magnesia) 30 ml PO Q12H PRN PRN Reason: Constipation Stop: 05/16/19 04:28 Metformin HCl (Glucophage Er) 500 mg PO DAILY@0800 [facility] Stop: 05/23/19 07:59 Last Admin: 04/23/19 08:00 Dose: 500 mg Documented by: Miscellaneous (Carbohydrates For Hypoglycemia) 15 - 30 gm PO UD PRN PRN Reason: Hypoglycemia Protocol Stop: 05/16/19 04:28 Ondansetron HCl (Zofran) 4 mg IV Q6H PRN PRN Reason: Nausea Stop: 05/16/19 04:28 Phenytoin Sodium (Dilantin Er) 200 mg PO BID [facility] Stop: 05/17/19 20:59 Last Admin: 04/23/19 07:59 Dose: 200 mg Documented by: Polyethylene Glycol (Miralax Powder Packet) 17 gm PO DAILY PRN PRN Reason: Constipation Stop: 05/16/19 04:28 Rosuvastatin Calcium (Crestor) 40 mg PO HS [facility] Stop: 05/16/19 20:59 Last Admin: 04/22/19 20:23 Dose: 40 mg Documented by: Tolterodine Tartrate (Detrol La) 4 mg PO DAILY [facility] Stop: 05/16/19 08:59 Last Admin: 04/23/19 07:59 Dose: 4 mg Documented by:
[2019-04-23] MEDS ORDERED: POTASSIUM CHLORIDE 20 MEQ TABCR PO STA (16:41)
[2019-04-23] MEDS: ROSUVASTATIN CALCIUM 20 MG TAB PO SCH (20:57)
[2019-04-24] MEDS: LEVOTHYROXINE SODIUM 75 MCG TABLET PO SCH (06:34)
[2019-04-24 08:00] LABS: BUN Creatinine Ratio 31.5 (10-20); Calcium 8.7 mg/dl (8.5-10.1); Creatinine Clr Calc Pharmacy 53.1 ml/min; Est GFR (African American) 74.5; Est GFR (Non-African American) 64.3; Magnesium 1.9 mg/dl (1.8-2.4); Phosphorus 3.2 mg/dl (2.5-4.9); Potassium 4.1 mmol/L (3.5-5.1)
[2019-04-24] MEDS: carvediloL 25 MG TAB PO SCH ×2 (09:23→21:03)
[2019-04-24] MEDS: ASPIRIN 81 MG ECTAB PO SCH (09:23)
[2019-04-24] MEDS: FUROSEMIDE 20 MG TAB PO SCH (09:23)
[2019-04-24] MEDS: PHENYTOIN SODIUM ER 100 MG CAP PO SCH ×2 (09:23→21:06)
[2019-04-24] MEDS: BACLOFEN 10 MG TAB PO SCH ×3 (09:24→21:07)
[2019-04-24] MEDS: AMLODIPINE BESYLATE 5 MG TAB PO SCH (09:24)
[2019-04-24] MEDS: TOLTERODINE TARTRATE LA 4 MG CAPCR PO SCH (09:24)
[2019-04-24] MEDS: LOSARTAN POTASSIUM 50 MG TAB PO SCH (09:24)
[2019-04-24] MEDS: INSULIN GLARGINE SOLOSTAR 100 UNITS/ML 3 ML PEN SC SCH ×2 (09:25→21:05)
[2019-04-24] MEDS: FERROUS SULFATE 325 MG TAB PO SCH ×2 (09:25→17:20)
[2019-04-24] MEDS: HEPARIN SOD 5,000 UNIT/0.5 ML VIAL SQ SCH ×2 (09:26→21:04)
[2019-04-24] MEDS: INSULIN ASPART 100 UNITS/ML 3 ML PEN SC SCH ×4 (09:27→21:07)
--- NOTE | 2019-04-24 09:27 | Hospitalist Progress Note ---
Date of Service April 24, 2019 Assessment & Plan (1) Seizure disorder: (1) Seizure disorder: Due to her prior CVAs. Brought in by son for altered mental status. Per patient, her right arm raise into the air and she was confused. Discussed with neuro and likely a small breakthrough seizure. Dilantin level was low, 6, on 04/16 Neurology consulted - Increased home Dilantin to 200mg PO BID, will need repeat Dilantin level in 3 weeks and follow-up with neurology in 3 to 4 weeks EEG without evidence of focal or generalized encephalopathy or epileptogenic activity Carotid doppler -- 50-69% stenosis L proximal internal carotid, R patent (2) Cellulitis: Keflex 500mg BID (renal-dosing). End date: 04/22 (discontinued) (3) Anemia: Microcytic Transferrin % - 3%, iron level low, 12, ferritinlow normal, 16.7 Patient with low H/H without identifiable cause-- possible need for EGD/colonoscopy as outpatient Was started on iron supplement (4) Elevated Cr/ ANDREW - now resolved - Cr 1.28 (up from ~1), currently <1 - gave gentle hydration, and will cont. to monitor renal function (5) History of CVA (cerebrovascular accident): - in 2001 Continue home ASA, Crestor Carotid doppler as above (6) Diabetes mellitus: Held home metformin during admission -- may need increased at discharge to 1500- 2000mg daily -tried her yesterday on 500 mg, patient then had emesis, unsure if this is due to metformin, however held -Today patient feels well, denies any nausea or vomiting, she is willing to try metformin again, will give with dinner Long-acting insulin Sliding scale insulin (7) HTN (hypertension): Continue home losartan, coreg, amlodipine, lasix (8) Hypothyroid: TSH this admission was 1.5. Continue levothyroxine 75 mcg daily (9) Infestation by bed bug: Presumed bed bugs or lice- treated with permethrin x 3 (10) Carotid artery stenosis: Carotid doppler -- 50-69% stenosis L proximal internal carotid, R patent -Continue aspirin, statin -Should be monitored as an outpatient Dispo: Likely to [facility] (per CM) Subjective No acute events overnight. Patient is lying in bed, comfortable, working on crossword puzzles. She denies any nausea, vomiting today, says she only had one episode yesterday. She thinks that it was because she felt too warm from the heater. She currently denies any fevers, chills, chest pain, shortness of breath, abdominal pain, fevers, chills. Discussed with her that I am not sure if she had the episode of vomiting from the metformin I gave her yesterday, she says that now she feels okay and she would try metformin again. Pt has some dysarthria, and right upper extremity spasticity from previous CVA. Review of Systems Review of Systems: All systems reviewed & are unremarkable except as noted in HPI & below Constitutional: no fever, no chills and no fatigue Respiratory: no cough and no dyspnea Cardiovascular: no chest pain, no dyspnea on exertion, no palpitations and no edema Gastrointestinal: no abdominal pain, no nausea and no vomiting Physical Exam Constitutional: well developed and well nourished; no acute distress Eyes: PERRL, conjunctivae normal, anicteric sclerae EOM intact bilaterally ENMT: external ear and nose normal, oropharynx normal Neck: normal visual inspection Respiratory: normal respiratory effort, lungs clear to auscultation no respiratory distress and no cough Auscultation: no rales, no rhonchi and no wheezes Cardiovascular: RRR, no murmur, no edema Heart Sounds: no gallop Chest (Breasts): Chest: normal inspection of chest Gastrointestinal (Abdomen): Inspection/Auscultation: abdomen normal to inspection and normal bowel sounds; abdomen not distended Percussion/Palpation: abdomen soft; abdomen nontender, no guarding and abdomen not rigid Musculoskeletal: Head/Neck/Chest: normocephalic, head atraumatic and neck supple Extremities: extremities normal to inspection (Except for superficial scratches especially on the right lower extremity, right upper extremity spasticity noted); no clubbing Skin: Trauma: + abrasion (Right lower extremity) Neurologic: Speech / Cognition: + abnormal speech (Dysarthria due to previous CVA) Psychiatric: A+Ox3, euthymic affect Genitourinary: no CVA tenderness Lymphatic: no lymphedema Results & Data Vital Signs (Past 12 Hours) Vital Signs Temp Pulse Resp BP Pulse Ox 04/24/19 07:36 36.7 C 63 20 118/72 95 04/24/19 03:40 36.9 C 86 20 112/76 92 04/23/19 23:30 37.4 C 74 19 103/68 96 Laboratory Results 04/24/19 04/24/19 04/23/19 Range/Units 07:45 07:08 20:17 Sodium 140 (136-145) mmol/L Potassium 4.1 (3.5-5.1) mmol/L Chloride 108 H (98-107) mmol/L Carbon Dioxide 24 (21-32) mmol/L Anion Gap 7.0 (3-11) BUN 28 H (7-18) mg/dl Creatinine 0.89 (0.6-1.2) mg/dl Est Cr Clr Drug Dosing 53.1 ml/min Est GFR ( Amer) 74.5 Est GFR (Non-Af Amer) 64.3 BUN/Creatinine Ratio 31.5 H (10-20) Glucose 113 H (70-99) mg/dl POC Glucose 118 H 133 H (70-99) Calcium 8.7 (8.5-10.1) mg/dl Phosphorus 3.2 (2.5-4.9) mg/dl Magnesium 1.9 (1.8-2.4) mg/dl 04/23/19 04/23/19 04/23/19 Range/Units 16:22 11:44 07:32 Sodium (136-145) mmol/L Potassium (3.5-5.1) mmol/L Chloride (98-107) mmol/L Carbon Dioxide (21-32) mmol/L Anion Gap (3-11) BUN (7-18) mg/dl Creatinine (0.6-1.2) mg/dl Est Cr Clr Drug Dosing ml/min Est GFR ( Amer) Est GFR (Non-Af Amer) BUN/Creatinine Ratio (10-20) Glucose (70-99) mg/dl POC Glucose 120 H 227 H 155 H (70-99) Calcium (8.5-10.1) mg/dl Phosphorus (2.5-4.9) mg/dl Magnesium (1.8-2.4) mg/dl Medications Administered Current Inpatient Medications Acetaminophen (Tylenol) 650 mg PO Q4H PRN PRN Reason: Pain or Fever Stop: 05/16/19 04:28 Al Hydrox/Mg Hydrox/Simethicone (Maalox) 15 ml PO Q4H PRN PRN Reason: Dyspepsia Stop: 05/16/19 04:28 Amlodipine Besylate (Norvasc) 10 mg PO DAILY [facility] Stop: 05/16/19 08:59 Last Admin: 04/23/19 07:58 Dose: 10 mg Documented by: Aspirin (Ecotrin Ectab) 81 mg PO DAILY [facility] Stop: 05/16/19 08:59 Last Admin: 04/23/19 07:59 Dose: 81 mg Documented by: Baclofen (Lioresal) 10 mg PO TID [facility] Stop: 05/16/19 08:59 Last Admin: 04/23/19 20:55 Dose: 10 mg Documented by: Carvedilol (Coreg) 25 mg PO QPM [facility] Stop: 05/16/19 20:59 Last Admin: 04/23/19 20:55 Dose: 25 mg Documented by: Carvedilol (Coreg) 50 mg PO QAM [facility] Stop: 05/16/19 08:59 Last Admin: 04/23/19 07:59 Dose: 50 mg Documented by: Dextrose (Dextrose 50%) 25 - 50 ml IV UD PRN; Protocol PRN Reason: Hypoglycemia Protocol Stop: 05/16/19 04:28 Ferrous Sulfate (Feosol) 325 mg PO BIDM [facility] Stop: 05/18/19 16:59 Last Admin: 04/23/19 18:40 Dose: 325 mg Documented by: Furosemide (Lasix) 20 mg PO QAM [facility] Stop: 05/24/19 08:59 Glucagon (Glucagen) 1 mg SQ UD PRN; Protocol PRN Reason: Hypoglycemia Protocol Stop: 05/16/19 04:28 Glucose (Dex4 Glucose) 4 - 8 tabs PO UD PRN; Protocol PRN Reason: Hypoglycemia Protocol Stop: 05/16/19 04:28 Glucose (Glucose 40%) 15 - 30 gm PO UD PRN; Protocol PRN Reason: Hypoglycemia Protocol Stop: 05/16/19 04:28 Heparin Sodium (Porcine) (Heparin Sodium (Porcine)) 5,000 units SQ Q12 [facility] Stop: 05/16/19 08:59 Last Admin: 04/23/19 20:55 Dose: 5,000 units Documented by: Insulin Aspart (Novolog Flexpen) 0 units SC ACHS [facility] Stop: 05/16/19 11:59 Last Admin: 04/23/19 20:44 Dose: Not Given Documented by: Insulin Glargine (Lantus Solostar Pen) 13 units SC BID [facility] Stop: 05/16/19 08:59 Last Admin: 04/23/19 20:56 Dose: 13 units Documented by: Levothyroxine Sodium (Synthroid) 75 mcg PO DAILYBB [facility] Stop: 05/16/19 06:29 Last Admin: 04/24/19 06:34 Dose: 75 mcg Documented by: Losartan Potassium (Cozaar) 50 mg PO DAILY [facility] Stop: 05/16/19 08:59 Last Admin: 04/23/19 07:59 Dose: 50 mg Documented by: Magnesium Hydroxide (Milk Of Magnesia) 30 ml PO Q12H PRN PRN Reason: Constipation Stop: 05/16/19 04:28 Miscellaneous (Carbohydrates For Hypoglycemia) 15 - 30 gm PO UD PRN PRN Reason: Hypoglycemia Protocol Stop: 05/16/19 04:28 Ondansetron HCl (Zofran) 4 mg IV Q6H PRN PRN Reason: Nausea Stop: 05/16/19 04:28 Phenytoin Sodium (Dilantin Er) 200 mg PO BID [facility] Stop: 05/17/19 20:59 Last Admin: 04/23/19 20:57 Dose: 200 mg Documented by: Polyethylene Glycol (Miralax Powder Packet) 17 gm PO DAILY PRN PRN Reason: Constipation Stop: 05/16/19 04:28 Rosuvastatin Calcium (Crestor) 40 mg PO HS [facility] Stop: 05/16/19 20:59 Last Admin: 04/23/19 20:57 Dose: 40 mg Documented by: Tolterodine Tartrate (Detrol La) 4 mg PO DAILY [facility] Stop: 05/16/19 08:59 Last Admin: 04/23/19 07:59 Dose: 4 mg Documented by:
[2019-04-24] MEDS ORDERED: METFORMIN HCL 500 MG TAB PO ONE (18:00)
[2019-04-24] MEDS: ROSUVASTATIN CALCIUM 20 MG TAB PO SCH (21:04)
[2019-04-25] MEDS: LEVOTHYROXINE SODIUM 75 MCG TABLET PO SCH (05:40)
[2019-04-25] MEDS: AMLODIPINE BESYLATE 5 MG TAB PO SCH (08:25)
[2019-04-25] MEDS: BACLOFEN 10 MG TAB PO SCH ×2 (08:25→14:19)
[2019-04-25] MEDS: ASPIRIN 81 MG ECTAB PO SCH (08:26)
[2019-04-25] MEDS: PHENYTOIN SODIUM ER 100 MG CAP PO SCH (08:27)
[2019-04-25] MEDS: carvediloL 25 MG TAB PO SCH (08:27)
[2019-04-25] MEDS: LOSARTAN POTASSIUM 50 MG TAB PO SCH (08:27)
[2019-04-25] MEDS: FERROUS SULFATE 325 MG TAB PO SCH (08:28)
[2019-04-25] MEDS: FUROSEMIDE 20 MG TAB PO SCH (08:29)
[2019-04-25] MEDS: TOLTERODINE TARTRATE LA 4 MG CAPCR PO SCH (08:29)
[2019-04-25] MEDS: INSULIN GLARGINE SOLOSTAR 100 UNITS/ML 3 ML PEN SC SCH (08:30)
[2019-04-25] MEDS: HEPARIN SOD 5,000 UNIT/0.5 ML VIAL SQ SCH (08:30)
[2019-04-25] MEDS: INSULIN ASPART 100 UNITS/ML 3 ML PEN SC SCH ×2 (08:30→12:06)
[2019-04-25] MEDS ORDERED: INFLUENZA VACCINE HIGH DOSE 65+ 0.5 ML SYR IM ONE (11:45)
[2019-04-25] MEDS ORDERED: INFLUENZA ADMINISTRATION CHARGE ONE (11:45)
--- NOTE | 2019-04-25 12:54 | Discharge Summary ---
Date of Service April 25, 2019 Admission HPI Per Admitting Provider Patient is a 74yo F PMH listed below but significant for prev CVA (2001), presented via EMS at [facility] of her son who reported altered mental status [employer]. History provided by ER providers and staff. Pt has h/o CVA with some residual R- sided deficits and was in a typical state of health until earlier this evening when her son noted abnormal speech and incoherent thoughts. EMS was called and patient was evaluated in the ER for possible TIA and sepsis. Initial labs revealed elevated WBC of 23k, H/H of 9.6/33, lactate 2.5, normal UA. CT head negative from stat rad read. Initial examination of pt revealed R-leg cell ulitis, fleas, chiggers, bed bugs, and lice. Pt lives with son in [facility]. PMH: -severe HTN, hypothyroid, HLD, overactive bladder, seizure disorder, CVA with residual R-sided weakness, T2DM, depression, diabetic nephropathy, obesity, ?intellectual disability Discharge Data Allergies Allergy/AdvReac Type Severity Reaction Status Date / Time No Known Allergies Allergy Unknown Verified 04/15/19 23:44 Consultations 04/16/19 01:30 ED Decision to Admit Stat 04/16/19 04:29 Consult Case Management - Discharge Planning Routine 04/16/19 12:09 Consult Neurology Routine Ordered Studies 04/15/19 23:15 CT head/brain wo con Urgent 04/18/19 11:15 US carotid doppler BI Routine Discharge Plan Discharge Items Reason For Visit: ?TIA / CELLULITIS Follow-up/Referrals: Av Patel MD [Physician] - Medications and DC Order Prescriptions: No Action aspirin 81 mg tablet,delayed release (DR/EC) 81 mg PO DAILY RF: 0 baclofen 10 mg tablet 10 mg PO TID RF: 0 amlodipine 10 mg tablet 10 mg PO DAILY RF: 0 cholecalciferol (vitamin D3) [Vitamin D3] 1,000 unit capsule 2,000 unit PO DAILY RF: 0 carvedilol 25 mg tablet 25 mg PO QPM RF: 0 carvedilol 25 mg tablet 50 mg PO QAM RF: 0 phenytoin sodium extended [Dilantin Extended] 100 mg capsule 100 mg PO QPM RF: 0 phenytoin sodium extended [Dilantin Extended] 100 mg capsule 200 mg PO QAM RF: 0 losartan 50 mg tablet 50 mg PO DAILY RF: 0 tolterodine 4 mg capsule,extended release 24hr 4 mg PO DAILY RF: 0 levothyroxine 75 mcg tablet 75 mcg PO DAILY RF: 0 metformin 500 mg tablet extended release 24 hr 500 mg PO BID RF: 0 loratadine 10 mg tablet 10 mg PO DAILY RF: 0 rosuvastatin 40 mg tablet 40 mg PO HS RF: 0 hydrochlorothiazide 12.5 mg capsule 12.5 mg PO BID RF: 0 furosemide 20 mg tablet 20 mg PO DAILY RF: 0 glimepiride 4 mg tablet 4 mg PO DAILY RF: 0 Krames/Other Patient Handouts: Hyperglycemia, Hypoglycemia, Diabetes Type 2 Coping, Diabetes Healthy Meals Admission Data Admit Date/Time: 04/16/19 02:48 Attending Provider: Chandana Kline Admit Provider: Mickie Agrawal Primary Care Provider: Royer Jones Other Providers: Moses Fischer ; Josiah Gilliland ; [place] ; [facility], ; Alfredo Lema ; Faustino Howe
--- NOTE | 2019-04-25 13:35 | Discharge Summary ---
Date of Service April 25, 2019 Admission HPI Per Admitting Provider Patient is a 74yo F PMH listed below but significant for prev CVA (2001), presented via EMS at [facility] of her son who reported altered mental status [employer]. History provided by ER providers and staff. Pt has h/o CVA with some residual R- sided deficits and was in a typical state of health until earlier this evening when her son noted abnormal speech and incoherent thoughts. EMS was called and patient was evaluated in the ER for possible TIA and sepsis. Initial labs revealed elevated WBC of 23k, H/H of 9.6/33, lactate 2.5, normal UA. CT head negative from stat rad read. Initial examination of pt revealed R-leg cell ulitis, fleas, chiggers, bed bugs, and lice. Pt lives with son in [facility]. PMH: -severe HTN, hypothyroid, HLD, overactive bladder, seizure disorder, CVA with residual R-sided weakness, T2DM, depression, diabetic nephropathy, obesity, ?intellectual disability Admission Exam Per Admitting Provider Physical Exam: Please see ER physician's note. Unable to examine patient due to isolation in relation to excess of insects on patient/son in room. Fleas,chiggers, bed bugs, lice. Noted to have cellulitis of L thigh. ER Exam Vitals: BP 169/78, Pulse 92, Resp 20, Temp 98.2 F, O2 Sat 98 on RA Exam: GENERAL: Patient is disheveled appearing in dirty clothes and covered in multiple types of insects. Slow speech. Difficulty finding words. No distress. EYES: No scleral icterus, unremarkable pupils. ENT: Mucous membranes dry, no nasal congestion. NECK: No masses appreciated, no meningismus, trachea is midline. RESPIRATORY: No dyspnea. Clear to auscultation and equal bilaterally. No wheeze, no rhonchi. CARDIOVASCULAR: Regular rate and rhythm. No murmurs, rubs, gallops appreciated. GASTROINTESTINAL: Abdomen soft, non-tender, no peritonitis. Bowel sounds positive. No masses appreciated. BACK: No midline tenderness, no CVA tenderness EXTREMITIES: No edema. Contractures of the right arm and leg. Weakness of her right arm and leg. Muscle wasting of lower extremities. NEUROLOGIC: Alert and oriented, no acute motor or sensory deficits, no focal weakness, cranial nerves grossly intact. Slow speech. Difficulty finding words. GCS of 15. SKIN: No rash, no jaundice, no diaphoresis. Principal Diagnosis Seizure, lower extremity cellulitis, insect bite Discharge Exam Constitutional well developed and well nourished; no acute distress Eyes PERRL, conjunctivae normal, anicteric sclerae EOM intact bilaterally ENMT external ear and nose normal, oropharynx normal Neck normal visual inspection Respiratory normal respiratory effort, lungs clear to auscultation no respiratory distress and no cough Auscultation: no rales, no rhonchi and no wheezes Cardiovascular RRR, no murmur, no edema Heart Sounds: no gallop Chest (Breasts) Chest: normal inspection of chest Gastrointestinal (Abdomen) Inspection/Auscultation: abdomen normal to inspection and normal bowel sounds; abdomen not distended Percussion/Palpation: abdomen soft; abdomen nontender, no guarding and abdomen not rigid Musculoskeletal Head/Neck/Chest: normocephalic, head atraumatic and neck supple Extremities: extremities normal to inspection (Except for superficial scratches especially on the right lower extremity, right upper extremity spasticity noted ); no clubbing Skin Trauma: + abrasion (Right lower extremity) Neurologic Speech / Cognition: + abnormal speech (Dysarthria due to previous CVA) Psychiatric A+Ox3, euthymic affect Genitourinary no CVA tenderness Lymphatic no lymphedema Discharge Data Allergies Allergy/AdvReac Type Severity Reaction Status Date / Time No Known Allergies Allergy Unknown Verified 04/15/19 23:44 Consultations 04/16/19 01:30 ED Decision to Admit Stat 04/16/19 04:29 Consult Case Management - Discharge Planning Routine 04/16/19 12:09 Consult Neurology Routine Ordered Studies 04/15/19 23:15 CT head/brain wo con Urgent 04/18/19 11:15 US carotid doppler BI Routine Hospital Course (1) Seizure disorder: (1) Seizure disorder: Due to her prior CVAs. Brought in by son for altered mental status. Per patient, her right arm raise into the air and she was confused. Discussed with neuro and likely a small breakthrough seizure. Dilantin level was low, 6, on 04/16 Neurology consulted (04/17) - Increased home Dilantin to 200mg PO BID, will need repeat Dilantin level in 3 weeks from that time (around 05/09/2019) and follow-up with neurology in 3 to 4 weeks (between 05/09 and 05/14) EEG without evidence of focal or generalized encephalopathy or epileptogenic activity Carotid doppler -- 50-69% stenosis L proximal internal carotid, R patent (2) Cellulitis: Keflex 500mg BID (renal-dosing). End date: 04/22 (discontinued) (3) Anemia: Microcytic Hgb ~ 8 (stable) Transferrin % - 3%, iron level low, 12, ferritinlow normal, 16.7 Patient with low H/H without identifiable cause-- possible need for EGD /colonoscopy as outpatient Was started on iron supplement (4) Elevated Cr/ ANDREW - now resolved - Cr 1.28 (up from ~1), currently <1 - gave gentle hydration, and will cont. to monitor renal function (5) History of CVA (cerebrovascular accident): - in 2001 Continue home ASA, Crestor Carotid doppler as above (6) Diabetes mellitus: Held home metformin during initially on admission -- may need increase as outpatient 1500-2000mg daily -re-started metformin 500 mg daily - cont. Long-acting insulin, 13 units BID - cont. Sliding scale insulin (7) HTN (hypertension): Well controlled Continue home losartan, coreg, amlodipine, HCTZ - discontinued lasix (8) Hypothyroid: TSH this admission was 1.5. Continue levothyroxine 75 mcg daily (9) Infestation by bed bug: Presumed bed bugs or lice- treated with permethrin x 3 (10) Carotid artery stenosis: Carotid doppler -- 50-69% stenosis L proximal internal carotid, R patent -Continue aspirin, statin -Should be monitored as an outpatient Dispo: [facility] Total Time Total Time Spent Total Time Spent (In Minutes): 40 Total Time Includes: Examination of the Patient, Discharge Planning, Medication Reconciliation and Communication With Other Providers Discharge Plan Discharge Items Patient Disposition: Transfer Inpatient Rehab Fac Reason For Visit: ?TIA / CELLULITIS Discharge Diagnosis: Seizure, lower extremity cellulitis, insect bite Activity: Resume your previous activity Activity Comment: As tolerated, per PT Non-emergency contact: Primary Care Provider and Neurologist Call non-emergency contact if: you have any medication questions and your symptoms worsen Follow-up/Referrals: Av Patel MD [Physician] - Diet: Carb Consistent or DM2 and Heart Healthy Addtl Attending Provider Instructions: You were seen by neurologist, Dr. Faustino Howe, on April 17, while in the hospital. It was recommended at that time that you increase your Dilantin dose to 200 mg twice a day. You will also need Dilantin level done around May 09, and follow-up with neurology within that week (after level is obtained). You were treated for cellulitis, and finished the treatment course, you do not need any more antibiotics. Pending Studies at Discharge: No Stand-Alone Forms: My [facility] Skilled Items Patient informed of condition?: Yes DNR: No Discharge Level of Care: Acute rehab Communicable Disease: No Discharge Prognosis: Stable Lines: None Urinary Catheter: No Medications and DC Order Prescriptions: New ferrous sulfate 325 mg (65 mg iron) Tablet,Delayed Release (Dr/Ec) 325 mg PO BIDM 30 Days Qty: 60 RF: 0 phenytoin sodium extended [Dilantin Extended] 100 mg Capsule 200 mg PO BID 30 Days Qty: 120 RF: 0 aspirin [Ecotrin Low Strength] 81 mg Tablet,Delayed Release (Dr/Ec) 81 mg PO DAILY 30 Days Qty: 30 RF: 0 Lantus Solostar U-100 Insulin 100 unit/mL (3 mL) Insulin Pen 13 unit SC BID 30 Days Qty: 7.8 RF: 0 polyethylene glycol 3350 [Miralax] 17 gram Powder In Packet 17 g PO DAILY PRN (Reason: constipation) 30 Days Qty: 14 RF: 0 acetaminophen [Mapap (acetaminophen)] 325 mg Tablet 650 mg PO Q4H PRN (Reason: pain) 30 Days Qty: 30 RF: 0 Continued baclofen 10 mg tablet 10 mg PO TID RF: 0 amlodipine 10 mg tablet 10 mg PO DAILY RF: 0 cholecalciferol (vitamin D3) [Vitamin D3] 1,000 unit capsule 2,000 unit PO DAILY RF: 0 carvedilol 25 mg tablet 25 mg PO QPM RF: 0 carvedilol 25 mg tablet 50 mg PO QAM RF: 0 losartan 50 mg tablet 50 mg PO DAILY RF: 0 tolterodine 4 mg capsule,extended release 24hr 4 mg PO DAILY RF: 0 levothyroxine 75 mcg tablet 75 mcg PO DAILY RF: 0 metformin 500 mg tablet extended release 24 hr 500 mg PO BID RF: 0 loratadine 10 mg tablet 10 mg PO DAILY RF: 0 rosuvastatin 40 mg tablet 40 mg PO HS RF: 0 hydrochlorothiazide 12.5 mg capsule 12.5 mg PO BID RF: 0 Discontinued aspirin 81 mg tablet,delayed release (DR/EC) 81 mg PO DAILY RF: 0 phenytoin sodium extended [Dilantin Extended] 100 mg capsule 100 mg PO QPM RF: 0 phenytoin sodium extended [Dilantin Extended] 100 mg capsule 200 mg PO QAM RF: 0 furosemide 20 mg tablet 20 mg PO DAILY RF: 0 glimepiride 4 mg tablet 4 mg PO DAILY RF: 0 Discharge Orders: Discharge Order (Routine); Ordered 04/25/19 Ordered By: Chandana Santillan/Other Patient Handouts: Hyperglycemia, Hypoglycemia, Diabetes Type 2 Coping, Diabetes Healthy Meals Admission Data Admit Date/Time: 04/16/19 02:48 Attending Provider: Chandana Kline Admit Provider: Mickie Agrawal Primary Care Provider: Royer Jones Other Providers: Moses Fischer ; Josiah Gilliland ; Trudy Hastings ; [facility], ; Alfredo Lema ; Faustnio Howe
[2019-04-25] MEDS ORDERED: METFORMIN HCL 500 MG TAB PO ONE (13:38)
== END 2019-04-25 16:16 | DRG 57 ==
LOC: ED 22:49 → SUATTDRO 04-16 02:48 → 2E 04-16 02:48 → 2W 04-16 15:55

== ENCOUNTER 2019-12-15 09:48 | Inpatient (IN) ==
--- NOTE | 2019-12-15 10:09 | Emergency Department Note ---
History of Present Illness General Chief complaint: Diarrhea Time Seen by Provider: 12/15/19 09:56 Source: patient Mode of arrival: EMS Limitations: no limitations History of Present Illness Provider complaint: Diarrhea, dehydration Onset (ago): day(s) 3 Associated symptoms: + loss of appetite, + malaise and + weakness Is a 74-year-old female who presents via EMS from home due to concern for di arrhea and dehydration. Patient states she has had diarrhea for couple of days, no accompanying nausea or vomiting, no accompanying abdominal pain. Patient states she did have recent change in her medications but does not recall what this is. Patient denies any sick contacts at home. Patient denies any known coronavirus exposure. Patient does have a significant past medical history including right-sided deficits from a prior CVA. Patient denies any change in her urine. Patient denies any blood with the diarrhea. Patient denies any significant GI history including IBS or inflammatory bowel disease. Patient denies any recent change in diet or new foods to suggest a foodborne illness. Patient states she has had prior abdominal surgery. Patient states she otherwise feels fatigued at this time. Pt seen during a time of high acuity and national emergency pandemic while wearing PPE. Home Medications Home Medications Medication Instructions Recorded Confirmed Type amlodipine 10 mg PO DAILY 04/15/19 12/15/19 History baclofen 10 mg PO TID 04/15/19 12/15/19 History carvedilol 25 mg PO HS 04/15/19 12/15/19 History carvedilol 50 mg PO DAILY 04/15/19 12/15/19 History hydrochlorothiazide 12.5 mg PO BID 04/15/19 12/15/19 History levothyroxine 75 mcg PO DAILYBB 04/15/19 12/15/19 History loratadine 10 mg PO DAILY 04/15/19 12/15/19 History losartan 50 mg PO BID 04/15/19 12/15/19 History metformin 500 mg PO BID 04/15/19 12/15/19 History rosuvastatin 40 mg PO HS 04/15/19 12/15/19 History aspirin 81 mg PO DAILY 12/15/19 12/15/19 History cholecalciferol (vitamin D3) 125 mcg PO DAILY 12/15/19 12/15/19 History [Vitamin D3] ferrous sulfate 325 mg PO BID 12/15/19 12/15/19 History glimepiride 4 mg PO DAILY 12/15/19 12/15/19 History menthol-zinc oxide [Calmoseptine] 1 applic TOPICAL TID 12/15/19 12/15/19 History multivit,stress formula-zinc 1 tab PO DAILY 12/15/19 12/15/19 History [Stress Formula with Zinc] phenytoin sodium extended 100 mg PO HS 12/15/19 12/15/19 History phenytoin sodium extended 200 mg PO DAILY 12/15/19 12/15/19 History polyethylene glycol 3350 [Miralax] 17 g PO DAILY PRN 12/15/19 12/15/19 History tolterodine 2 mg PO DAILY 12/15/19 12/15/19 History Allergies Allergy/AdvReac Type Severity Reaction Status Date / Time No Known Allergies Allergy Unknown Verified 12/15/19 11:45 Past Med/Surg History Medical History (Updated 12/16/19 @ 17:51 by Abraham Nye MD) Anemia Carotid artery stenosis Depression Diabetes mellitus Diabetic nephropathy History of CVA (cerebrovascular accident) hx L MCA CVA with RHP 2001 HTN (hypertension) Hyperlipidemia Hypothyroid Obesity Overactive bladder Seizure disorder s/p CVA TIA (transient ischemic attack) Surgical History (Updated 12/15/19 @ 13:01 by Peace Mcdaniels PA-C) History of appendectomy Family History Father Cancer Brother Myocardial infarction Social History Preferred Language: Togolese Communication Ability: Effective Beliefs That Will Affect Care: None Current Living Situation: Family Other Information That Helps Us Care for You: No Feels Safe at Home: Yes Smoking Status: Unknown if ever smoked Hx Alcohol Use: No Hx Substance Use: No Review of Systems See HPI for pertinent positives & negatives. and A total of 10 systems reviewed and were otherwise negative Physical Exam Vital Signs Vital Signs - 24 hr 12/15/19 09:55 12/15/19 10:00 12/15/19 10:02 Temperature 37.2 C Temperature Source Oral Pulse Rate 68 68 72 Pulse Rate from SpO2 Sensor 67 67 Pulse Rhythm Regular Pulse Strength Normal Respiratory Rate 12 12 18 Respiratory Effort / Characteristics Non-Labored Spontaneous Respiratory Depth Normal Respiratory Pattern Regular Blood Pressure 121/74 114/66 121/74 Blood Pressure Mean 81 82 89 Pulse Oximetry 95 96 98 Oxygen Delivery Method Room Air Sepsis Recent Fever Within 48 Hours No Sepsis New/Unexplained Change in Mental Status No Sepsis Action Taken by Nursing No Action Required 12/15/19 10:30 12/15/19 11:10 12/15/19 11:31 Temperature Temperature Source Pulse Rate 65 70 69 Pulse Rate from SpO2 Sensor 65 71 69 Pulse Rhythm Pulse Strength Respiratory Rate 12 15 21 Respiratory Effort / Characteristics Respiratory Depth Respiratory Pattern Blood Pressure 92/46 L 179/97 H 131/61 Blood Pressure Mean 76 122 85 Pulse Oximetry 95 97 96 Oxygen Delivery Method Sepsis Recent Fever Within 48 Hours Sepsis New/Unexplained Change in Mental Status Sepsis Action Taken by Nursing GENERAL: alert, ill appearing, well nourished, no distress, non-toxic, obese EYE EXAM: normal conjunctiva, PERRL and EOM's grossly intact OROPHARYNX: no exudate, no erythema, lips, buccal mucosa, and tongue normal and mucous membranes are moist NECK: supple, no nuchal rigidity, no adenopathy, non-tender LUNGS: Clear to auscultation. Normal chest wall mechanics, no w/r/r HEART: no murmurs, S1 normal and S2 normal ABDOMEN: abdomen soft, non-tender, normo-active bowel sounds, no masses, no rebound or guarding. Well-healed surgical scar noted to the right upper q uadrant consistent with prior open cholecystectomy, small umbilical hernia easily reduced and nontender, small yuly-incisional hernia noted along the medial aspect of the cholecystectomy scar which is nontender and easily reducible also BACK: Back is symmetrical on inspection and there is no deformity, no midline tenderness, no CVA tenderness. SKIN: no rashes and no bruising UPPER EXTREMITIES: upper extremities are grossly normal. FROM, nml pulses b/l. LOWER EXTREMITIES: No pitting edema. FROM, nml pulses b/l. NEURO EXAM: Somnolent but arousable normal sensorium, cranial nerves II-XII mague sly intact, normal speech, no gross weakness of arms, no gross weakness of legs. Gross sensation intact. Course Course 1035: VS stable. 1203: [facility] Administered Medications Acetaminophen (Tylenol) 650 mg PO Q4H PRN PRN Reason: Pain or Fever Stop: 01/14/20 14:58 Last Admin: 12/16/19 16:04 Dose: 650 mg Documented by: [id number] Amlodipine Besylate (Norvasc) 10 mg PO DAILY [facility] Stop: 01/15/20 08:59 Last Admin: 12/16/19 10:04 Dose: Not Given Documented by: [id number] Aspirin (Aspirin Chew) 81 mg PO DAILY [facility] Stop: 01/15/20 08:59 Last Admin: 12/16/19 10:03 Dose: Not Given Documented by: [id number] Baclofen (Lioresal) 10 mg PO DAILY [facility]; Protocol Stop: 01/15/20 08:59 Last Admin: 12/16/19 10:04 Dose: Not Given Documented by: [id number] Carvedilol (Coreg) 25 mg PO HS [facility] Stop: 01/14/20 20:59 Last Admin: 12/15/19 21:09 Dose: 25 mg Documented by: [id number] Carvedilol (Coreg) 50 mg PO DAILY [facility] Stop: 01/15/20 08:59 Last Admin: 12/16/19 10:03 Dose: Not Given Documented by: [id number] Heparin Sodium (Porcine) (Heparin Sodium (Porcine)) 5,000 units SQ Q8 [facility] Stop: 01/14/20 14:58 Last Admin: 12/16/19 13:02 Dose: 5,000 units Documented by: [id number] Cosigned by: [id number] Admin: 12/16/19 06:04 Dose: 5,000 units Documented by: [id number] Cosigned by: [id number] Admin: 12/15/19 21:12 Dose: 5,000 units Documented by: [id number] Cosigned by: [id number] Admin: 12/15/19 15:50 Dose: 5,000 units Documented by: [id number] Cosigned by: [id number] Acetaminophen (Ofirmev) 1,000 mg in 100 mls @ 400 mls/hr IV Q8H PRN PRN Reason: Pain or Fever Stop: 12/18/19 19:54 Last Infusion: 12/16/19 05:14 Dose: 0 mls/hr Documented by: [id number] Admin: 12/16/19 04:40 Dose: 400 mls/hr Documented by: [id number] Phenytoin 100 mg/ Syringe 2 mls @ 1 mls/min IV Q8H [facility] Stop: 01/15/20 10:29 Last Admin: 12/16/19 11:38 Dose: 1 mls/min Documented by: [id number] Potassium Chloride 20 meq/ (Lactated Ringer's) 1,010 mls @ 75 mls/hr IV .Q13 H28M [facility] Stop: 01/15/20 11:44 Last Admin: 12/16/19 11:38 Dose: 75 mls/hr Documented by: [id number] Insulin Aspart (Novolog Flexpen) 0 units SC ACHS [facility]; Protocol Stop: 01/14/20 16:29 Last Admin: 12/16/19 17:25 Dose: 2 units Documented by: [id number] Cosigned by: [id number] Admin: 12/16/19 12:59 Dose: 7 units Documented by: [id number] Cosigned by: [id number] Admin: 12/16/19 10:44 Dose: 3 units Documented by: [id number] Cosigned by: [id number] Admin: 12/15/19 21:22 Dose: 3 units Documented by: [id number] Cosigned by: [id number] Admin: 12/15/19 16:48 Dose: 6 units Documented by: [id number] Cosigned by: [id number] Insulin Glargine (Lantus Solostar Pen) 0 units SC BID [facility]; Protocol Stop: 01/14/20 20:59 Last Admin: 12/16/19 10:44 Dose: 12 units Documented by: [id number] Cosigned by: [id number] Admin: 12/15/19 21:10 Dose: 12 units Documented by: [id number] Cosigned by: [id number] [facility]: 01/15/20 06:29 Last Admin: 12/16/19 06:05 Dose: Not Given Documented by: [id number] Phenytoin Sodium (Dilantin Er) 200 mg PO DAILY [facility] Stop: 01/15/20 08:59 Last Admin: 12/16/19 10:34 Dose: Not Given Documented by: [id number] Phenytoin Sodium (Dilantin Er) 100 mg PO HS [facility] Stop: 01/14/20 20:59 Last Admin: 12/15/19 21:08 Dose: 100 mg Documented by: [id number] Sodium Chloride (Sodium Chloride Flush) 20 ml IV Q8H [facility] Stop: 01/15/20 10:29 Last Admin: 12/16/19 11:38 Dose: 20 ml Documented by: [id number] Tolterodine Tartrate (Detrol) 1 mg PO BID [facility]; Protocol Stop: 01/14/20 20:59 Last Admin: 12/16/19 10:03 Dose: Not Given Documented by: [id number] Admin: 12/15/19 21:08 Dose: 1 mg Documented by: [id number] Discontinued Medications Baclofen (Lioresal) 10 mg PO TID [facility] Stop: 01/14/20 14:58 Last Admin: 12/15/19 16:02 Dose: Not Given Documented by: [id number] Sodium Chloride (Nss 1000ml) 1,000 mls @ 500 mls/hr IV .Q2H [facility] Stop: 01/14/20 10:14 Last Admin: 12/15/19 15:09 Dose: Not Given Documented by: [id number] Admin: 12/15/19 15:08 Dose: Not Given Documented by: [id number] Infusion: 12/15/19 12:46 Dose: 0 mls/hr Documented by: [id number] Admin: 12/15/19 10:42 Dose: 500 mls/hr Documented by: [id number] Potassium Chloride/Sodium Chloride (Normal Saline W/20 Meq Kcl) 20 meq in 1,000 mls @ 75 mls/hr IV .[id number] [facility] Stop: 01/14/20 14:58 Last Infusion: 12/16/19 11:26 Dose: 0 mls/hr Documented by: [id number] Admin: 12/16/19 05:49 Dose: 75 mls/hr Documented by: [id number] Infusion: 12/16/19 05:09 Dose: 75 mls/hr Documented by: [id number] Admin: 12/15/19 15:49 Dose: 75 mls/hr Documented by: [id number] Sodium Chloride (Nss 1000ml) 500 mls @ 999 mls/hr IV .Q31M ONE Stop: 12/15/19 19:37 Last Infusion: 12/15/19 19:45 Dose: 0 mls/hr Documented by: [id number] Admin: 12/15/19 19:13 Dose: 999 mls/hr Documented by: [id number] Ceftriaxone Sodium 1,000 mg/ (Dextrose) 50 mls @ 100 mls/hr IV Q24H [facility]; Protocol Stop: 12/20/19 20:59 Last Infusion: 12/15/19 22:16 Dose: 0 mls/hr Documented by: [id number] Admin: 12/15/19 21:32 Dose: 100 mls/hr Documented by: [id number] Magnesium Sulfate/Dextrose (Magnesium Sulfate / D5w) 1 gm in 100 mls @ 50 mls/ hr IV ONE ONE Stop: 12/16/19 12:14 Last Infusion: 12/16/19 13:19 Dose: 0 mls/hr Documented by: [id number] Admin: 12/16/19 10:43 Dose: 50 mls/hr Documented by: [id number] Potassium Chloride (K Harsh / Wtr) 10 meq in 100 mls @ 100 mls/hr IV Q1H [facility] Stop: 12/16/19 12:29 Last Infusion: 12/16/19 13:19 Dose: 0 mls/hr Documented by: [id number] Admin: 12/16/19 11:37 Dose: 100 mls/hr Documented by: [id number] Infusion: 12/16/19 11:37 Dose: 100 mls/hr Documented by: [id number] Admin: 12/16/19 10:43 Dose: 100 mls/hr Documented by: [id number] Piperacillin Sod/Tazobactam (Sod 4.5 gm/ Dextrose) 120 mls @ 200 mls/hr IV NOW ONE; Protocol Stop: 12/16/19 11:35 Last Infusion: 12/16/19 13:20 Dose: 0 mls/hr Documented by: [id number] Admin: 12/16/19 11:38 Dose: 200 mls/hr Documented by: [id number] Insulin Aspart (Novolog Flexpen) 0 units SC 0000,0400 [facility] Stop: 12/16/19 04:01 Last Admin: 12/16/19 03:25 Dose: 3 units Documented by: [id number] Cosigned by: [id number] Admin: 12/15/19 23:46 Dose: 4 units Documented by: [id number] Cosigned by: [id number] Insulin Human Regular (Novolin R U-100 Per Unit) 8 units SC NOW STA Stop: 12/15/19 11:25 Last Admin: 12/15/19 11:35 Dose: 8 units Documented by: [id number] Cosigned by: [id number] Magnesium Oxide (Mag-Ox) 400 mg PO BID [facility] Stop: 01/15/20 08:59 Last Admin: 12/16/19 10:35 Dose: Not Given Documented by: [id number] Miscellaneous (Patient's Height And/Or Weight Needed) 1 ea N/A Q2H [facility] Stop: 12/15/19 17:30 Last Admin: 12/15/19 15:50 Dose: 1 ea Documented by: [id number] Potassium Chloride (Klor-Con M20) 40 meq PO NOW STA Stop: 12/16/19 08:20 Last Admin: 12/16/19 10:35 Dose: Not Given Documented by: [id number] Medical Decision Making Differential Diagnosis Differential Diagnosis includes but is not limited to dehydration, stroke, anemia, hypoglycemia, hyponatremia, hypernatremia, urinary tract infection, pneumonia, bronchitis, sepsis, gastroenteritis, additional abdominal pathology, metabolic abnormalities and infections. Medical Records Attestation: I reviewed the patient's medical records. Home Medications Current Medication List: was personally reviewed by me Laboratory Data Attestation: I reviewed the patient's lab results. Result diagrams: 12/16/19 06:19 12/16/19 16:58 Lab Results 12/15/19 12/15/19 12/15/19 Range/Units 09:24 09:24 09:24 WBC 10.31 (4.8-10.8) K/uL RBC 4.07 L (4.2-5.4) M/uL Hgb 12.3 (12.0-16.0) g/dL Hct 36.0 L (37-47) % MCV 88.5 (80-100) fL MCH 30.2 (25-34) pg MCHC 34.2 (32-36) g/dL RDW Std Deviation 44.1 (36.4-46.3) fL RDW Coeff of Maurice 13.5 (11.5-14.5) % Plt Count 219 (130-400) K/uL MPV 10.3 (7.4-10.4) fL Immature Gran % (Auto) 0.2 % Neut % (Auto) 77.8 % Lymph % (Auto) 13.5 % [place]son % (Auto) 7.3 % Eos % (Auto) 0.9 % Baso % (Auto) 0.3 % Neut # (Auto) 8.03 H (1.4-6.5) K/uL Lymph # (Auto) 1.39 (1.2-3.4) K/uL Anson # (Auto) 0.75 H (0.11-0.59) K/uL Eos # (Auto) 0.09 (0-0.5) K/uL Baso # (Auto) 0.03 (0-0.2) K/uL Immature Gran # (Auto) 0.02 (0.00-0.02) K/uL Sodium 137 (136-145) mmol/L Potassium 3.4 L (3.5-5.1) mmol/L Chloride 101 (98-107) mmol/L Carbon Dioxide 25 (21-32) mmol/L Anion Gap 11.0 (3-11) BUN 55 H (7-18) mg/dl Creatinine 2.60 H (0.6-1.2) mg/dl Est Cr Clr Drug Dosing Not Reportable Est GFR ( Amer) 20.4 Est GFR (Non-Af Amer) 17.6 BUN/Creatinine Ratio 21.2 H (10-20) Glucose 319 H* (70-99) mg/dl Calcium 8.6 (8.5-10.1) mg/dl Magnesium 2.0 (1.8-2.4) mg/dl Total Bilirubin 0.3 (0.2-1) mg/dl AST 92 H (15-37) U/L ALT 117 H (12-78) U/L Alkaline Phosphatase 108 (45-117) U/L Total Creatine Kinase 211 H (26-192) U/L Total Protein 7.7 (6.4-8.2) gm/dl Albumin 2.5 L (3.4-5.0) gm/dl Globulin 5.2 H (2.5-4.0) gm/dl Albumin/Globulin Ratio 0.5 L (0.9-2) Lipase 242 (73-393) U/L Beta-Hydroxybutyric Acd 6.27 H (0.2-2.81) mg/dl TSH 0.504 (0.300-4.500) uIu/ml Imaging Data Radiologist's Impression: XR abdomen 2V w PA chest CLINICAL HISTORY: diarrhea bowel change. Pain. COMPARISON STUDY: 04/16/2019 FINDINGS: The soft tissues, psoas shadows, renal outlines and intestinal gas pattern appear normal. There is no evidence for bowel obstruction. There is no evidence for free intraperitoneal air. No abnormal abdominal calcifications are seen. A frontal view of the chest was performed and is unremarkable. Moderate stable cardiomegaly IMPRESSION: 1. No acute process in the abdomen. 2. Moderate stable cardiomegaly with chest otherwise negative. ACT 112: Negative or not required by law. The above report was generated using voice recognition software. It may contain grammatical, syntax or spelling errors. Electronically signed by: Pop Scott M.D. 12/15/2019 11:21 AM ECG Data Attestation: I personally reviewed and interpreted this ECG as follows: Indication: + weakness Rate (beats per minute): 68 Rhythm: + normal sinus ECG Intervals/blocks: + Normal QRS and + Normal QT ECG [place]: + Normal ECG ST segments: + Normal ST segments Blood Pressure Blood Pressure Findings: Normal blood pressure MDM Narrative This a 74-year-old female who lives with family due to her prior CVA and difficulty caring for self. Patient presented with several days of diarrhea and family's concern for dehydration. Patient here can answer some questions although her speech is difficult to understand, per family this is her baseline. Patient does appear to have dry mucous membranes. Patient was started on gentle IV fluid rehydration. Patient found to be dehydrated with electrolyte abnormalities and evidence of ANDREW/ARF. Patient's creatinine now 2.4. Patient had a soft and nontender abdominal exam both on initial and subsequent repeat exams. Patient did not have any episodes of diarrhea while in the emergency room although stool cultures and C. difficile had been ordered. Patient was afebrile here and otherwise hemodynamically stable. Case discussed with hospitalist for additional inpatient monitoring, rehydration, and recheck of abnormalities. At this time I do not suspect mesenteric ischemia, colitis, bowel obstruction, perforation, GI bleed. Unclear if possible viral etiology or medication reaction as patient had stated a medication was recently changed although she cannot recall which one. Patient also found to have hyperglycemia, she does have a history of diabetes. No evidence of DKA. Mild elevation of transaminases noted, unclear etiology. I do not suspect acute cholecystitis, choledocholithiasis, ascending cholangitis, or acute pancreatitis. More likely related to medication side effect. An order was placed for continuous cardiac monitoring. The monitor shows a rate of 80 with normal sinus_ rhythm. Impression & Plan Diarrhea, Hypokalemia, Acute renal failure (ARF), Acute dehydration Discharge Plan Visit Data *Final* Discharge Date/Time: 12/15/19 13:20 Chief Complaint: Diarrhea ED Provider: Jacklyn Willams Discharge Problem: Diarrhea, Hypokalemia, Acute renal failure (ARF), Acute dehydration Patient Disposition: Admitted As Inpatient Discharge Instructions Interventions: ED Discharge Assessment Last Done: 12/15/19 13:20 Discharge Problem: Diarrhea Qualifiers: Diarrhea type: unspecified type Qualified Code(s): R19.7 - Diarrhea, unspecified Acute renal failure (ARF) Qualifiers: Acute renal failure type: unspecified Qualified Code(s): N17.9 - Acute kidney failure, unspecified
[2019-12-15 10:24] LABS: Basophils # (auto) 0.03 K/uL (0-0.2); Basophils % (auto) 0.3 %; Eosinophils # (auto) 0.09 K/uL (0-0.5); Eosinophils % (auto) 0.9 %; Hemoglobin 12.3 g/dL (12.0-16.0); Immature Granulocytes # (auto) 0.02 K/uL (0.00-0.02); Immature Granulocytes % (auto) 0.2 %; Lymphocytes # (auto) 1.39 K/uL (1.2-3.4); Lymphocytes % (auto) 13.5 %; Mean Corpuscular Hemoglobin 30.2 pg (25-34); Mean Corpuscular Hgb Conc 34.2 g/dL (32-36); Mean Corpuscular Volume 88.5 fL (80-100); Mean Platelet Volume 10.3 fL (7.4-10.4); Monocytes # (auto) 0.75 K/uL (0.11-0.59); Monocytes % (auto) 7.3 %; Neutrophils # (auto) 8.03 K/uL (1.4-6.5); Neutrophils % (auto) 77.8 %; Platelet Count 219 K/uL (130-400); RDW Coefficient of Variation 13.5 % (11.5-14.5); RDW Standard Deviation 44.1 fL (36.4-46.3); Red Blood Count 4.07 M/uL (4.2-5.4); White Blood Count 10.31 K/uL (4.8-10.8)
[2019-12-15 10:37] LABS: Blood Urea Nitrogen 55 mg/dl (7-18); Carbon Dioxide 25 mmol/L (21-32); Chloride 101 mmol/L (98-107); Est GFR (African American) 20.4; Potassium 3.4 mmol/L (3.5-5.1); Sodium 137 mmol/L (136-145)
[2019-12-15 10:38] LABS: Alanine Aminotransferase 117 U/L (12-78); Albumin Level 2.5 gm/dl (3.4-5.0); Aspartate Aminotransferase 92 U/L (15-37); BUN Creatinine Ratio 21.2 (10-20); Calcium 8.6 mg/dl (8.5-10.1); Est GFR (Non-African American) 17.6; Glucose 319 mg/dl (70-99); Lipase 242 U/L (73-393)
[2019-12-15] MEDS: SODIUM CHLORIDE 0.9% 1000ML 1,000 ML IV SCH ×3 (10:42→15:09)
[2019-12-15 10:46] LABS: Albumin Globulin Ratio 0.5 (0.9-2); Alkaline Phosphatase 108 U/L (45-117); Bilirubin,Total 0.3 mg/dl (0.2-1); Globulin 5.2 gm/dl (2.5-4.0); Thyroid Stimulating Hormone 0.504 uIu/ml (0.300-4.500); Total Protein 7.7 gm/dl (6.4-8.2)
[2019-12-15 11:03] LABS: Beta-Hydroxybutyrate 6.27 mg/dl (0.2-2.81)
--- NOTE | 2019-12-15 11:22 | XRay Report ---
XR abdomen 2V w PA chest CLINICAL HISTORY: diarrhea bowel change. Pain. COMPARISON STUDY: 04/16/2019 FINDINGS: The soft tissues, psoas shadows, renal outlines and intestinal gas pattern appear normal. T here is no evidence for bowel obstruction. There is no evidence for free intraperitoneal air. No abno rmal abdominal calcifications are seen. A frontal view of the chest was performed and is unremarkable . Moderate stable cardiomegaly IMPRESSION: 1. No acute process in the abdomen. 2. Moderate stable cardiomegaly with chest otherwise negative. ACT 112: Negative or not required by law. The above report was generated using voice recognition software. It may contain grammatical, syntax or spelling errors. Electronically signed by: Pop Scott M.D. 12/15/2019 11:21 AM
[2019-12-15] MEDS ORDERED: NovoLIN-R INSULIN PER UNIT CHARGE SC STA (11:24)
--- NOTE | 2019-12-15 13:12 | History & Physical Report ---
Date of Service December 15, 2019 Assessment & Plan (1) Diarrhea: This is a 74-year-old female who has significant past medical history of left MCA CVA with right hemiplegia in 2001, uncontrolled T2DM, HTN, HLD, CKD stage III, seizure disorder post CVA, hypothyroidism, left vertebral artery stenosis who presents to ED secondary to diarrhea and dehydration x3 days. Patient was hemodynamically stable in ED. She was afebrile, but modestly hypertensive. Lab work notable for elevated BUN and creatinine 55 and 2.60, glucose 319, AST 92, ALT 117, K3.4, H&H 12.3 and 36.0, to WBC 10.31. In ED She received IVF and Regular Insulin. CXR/KUB unremarkable. Pt recently taken off basaglar 12/08 and placed on glimepiride 4mg daily, otherwise no new med changes. No sick contacts. admit to tele stool culture, O+P, cdiff, Hepatitis panel IVF replace electrolytes as needed abd exam benign - no further imaging warranted at this time afebrile - monitor (2) Acute worsening of stage 3 chronic kidney disease: baseline cr 1.2 bun/cr 55/2.60 today likely pre renal in setting of GI LOSS hold HCTZ, metformin losartan avoid nephrotoxic agents IVF 75cc/hr +20meq KCl repeat bmp in a.m. (3) Hypokalemia: k 3.4 replete with IVF 75cc/hr + 20meq KCL follow bmp (4) Transaminitis: AST 92, ALT 117 obtain RUQ U/S Hepatitis Panel, r/o Hep A in setting of diarrheal illness Hold statin (5) Lethargy: pt with unknown baseline mental status, no family at bedside hx of CVA so mild dysarthria at bedside she appears oriented to basics; however lethargic obtain CT head w/o, NH3 likely in setting of ANDREW (6) Diabetes mellitus: Last A1c 12/08/2019 6.0 with HYPERGLYCEMIA today 2/2 to ANDREW Recently taken off Basaglar 13 units twice daily Placed on glimepiride 4 mg daily and continued on metformin consult glycemic pharmacy - appreciate their assistance in management (7) HTN (hypertension): blood pressure elevated in ED pt states she took a.m. meds continue amlodipine, coreg hold HCTZ, losartan in setting of ANDREW (8) History of CVA (cerebrovascular accident): hx of L MCA CVA with RHP in 2001 continue ASA on statin as outpt, hold for now (9) Seizure disorder: continue dilantin check dilantin level follows [facility] obtain EEG due to appeared alteration of mental status (although unknown baseline due to no family at bedside) (10) Hyperlipidemia: statin as outpt hold in 2/2 of acute diarrheal illness/elevated LFTS (11) Hypothyroid: TSH 0.504 last checked in 12/2018 2.90 repeat TSH and free T4 in a.m. consider reducing to to 50mcg daily (12) DVT prophylaxis: SQ Heparin Disposition: admit to telemetry Follow up: PCP Dr. Jones upon discharge Pt was seen and examined in collaboration with Dr. Chaidez please see addendum attempted to contact Son Keith Lemon, , no answer History of Present Illness Chief Complaint: Diarrhea and dehydration x 3 days. Primary Care Provider: Dr. Joens This is a 74-year-old female who has significant past medical history of left MCA CVA with right hemiplegia in 2001, uncontrolled T2DM, HTN, HLD, CKD stage III, seizure disorder post CVA, hypothyroidism, left vertebral artery stenosis who presents to ED secondary to diarrhea and dehydration x3 days. Patient is a poor historian and there is no family at bedside. Reportedly patient has been suffering from diarrhea for the past 3 days. No known sick contacts. Unknown frequency or consistency of stool. She denies eating bagged lettuce. She denies fever, chills, sweats, lightheadedness, chest pain, shortness, cough, nausea, vomiting, abdominal pain. She does complain of inability to move right side which is chronic due to previous stroke. Unaware of any blood in stool. Is incontinent of urine at times. Admits to taking a.m. medications, but unsure which ones. Denies any known covid exposure. Spoke to ED provider who provide most of history. Son Keith Lemon was contacted, but no answer. Patient was hemodynamically stable in ED. She was afebrile, but modestly hypertensive. Lab work notable for elevated BUN and creatinine 55 and 2.60, glucose 319, AST 92, ALT 117, K3.4, H&H 12.3 and 36.0, to WBC 10.31. In ED She received IVF and Regular Insulin. CXR/KUB unremarkable. Allergies Allergy/AdvReac Type Severity Reaction Status Date / Time No Known Allergies Allergy Unknown Verified 12/15/19 11:45 Home Medications Home Medications Medication Instructions Recorded Confirmed Type amlodipine 10 mg PO DAILY 04/15/19 12/15/19 History baclofen 10 mg PO TID 04/15/19 12/15/19 History carvedilol 25 mg PO HS 04/15/19 12/15/19 History carvedilol 50 mg PO DAILY 04/15/19 12/15/19 History hydrochlorothiazide 12.5 mg PO BID 04/15/19 12/15/19 History levothyroxine 75 mcg PO DAILYBB 04/15/19 12/15/19 History loratadine 10 mg PO DAILY 04/15/19 12/15/19 History losartan 50 mg PO BID 04/15/19 12/15/19 History metformin 500 mg PO BID 04/15/19 12/15/19 History rosuvastatin 40 mg PO HS 04/15/19 12/15/19 History aspirin 81 mg PO DAILY 12/15/19 12/15/19 History cholecalciferol (vitamin D3) 125 mcg PO DAILY 12/15/19 12/15/19 History [Vitamin D3] ferrous sulfate 325 mg PO BID 12/15/19 12/15/19 History glimepiride 4 mg PO DAILY 12/15/19 12/15/19 History menthol-zinc oxide [Calmoseptine] 1 applic TOPICAL TID 12/15/19 12/15/19 History multivit,stress formula-zinc 1 tab PO DAILY 12/15/19 12/15/19 History [Stress Formula with Zinc] phenytoin sodium extended 100 mg PO HS 12/15/19 12/15/19 History phenytoin sodium extended 200 mg PO DAILY 12/15/19 12/15/19 History polyethylene glycol 3350 [Miralax] 17 g PO DAILY PRN 12/15/19 12/15/19 History tolterodine 2 mg PO DAILY 12/15/19 12/15/19 History Past Med/Surg History Medical History (Updated 12/15/19 @ 13:29 by Peace Mcdaniels PA-C) Anemia Carotid artery stenosis Depression Diabetes mellitus Diabetic nephropathy History of CVA (cerebrovascular accident) hx L MCA CVA with RHP 2001 HTN (hypertension) Hyperlipidemia Hypothyroid Obesity Overactive bladder Seizure disorder s/p CVA TIA (transient ischemic attack) Surgical History (Updated 12/15/19 @ 13:01 by Peace Mcdaniels PA-C) History of appendectomy Family History Father Cancer Brother Myocardial infarction Social History Preferred Language: Sinhala Communication Ability: Effective Beliefs That Will Affect Care: None Current Living Situation: Family Feels Safe at Home: Yes Smoking Status: Never smoker Hx Alcohol Use: No Hx Substance Use: No Review of Systems Review of Systems: All systems reviewed & are unremarkable except as noted in Subjective Physical Exam Physical Exam: Constitutional: Chronically ill appearing female, vitals as above, NAD, lethargic, lying in bed, answers questions appropriately Head: Normocephalic, Atraumatic Eyes: PERRL, conjunctivae normal, anicteric sclerae ENMT: external ear and nose normal, oropharynx normal dry mucous membranes Neck: trachea midline, no thyromegaly normal visual inspection Respiratory: normal respiratory effort, lungs clear to auscultation, no wheeze, rales, rhonchi. Normal insp/exp effort, no accessory muscle use Cardiovascular: RRR, no murmur, no edema Vessels: no JVD or carotid bruit Chest: normal inspection of chest Abdomen: normal bowel sounds, soft, nontender, no hepatosplenomegaly Musculoskeletal: no cyanosis or clubbing, extremities motor strength 5/5 except right upper and lower extremity hemiplegia UE>LE Skin: no rashes, warm and dry moderate turgor Neurologic: PERRL, EOMI, accommodation nl, no face palsy, no dysarthria CN's II-XI intact bilaterally and moves all extremities Psychiatric: A+Ox3 to basics only, euthymic affect Lymphatic: no cervical or axillary lymphadenopathy : deferred Results & Data Results & Data ([facility]) Vital Signs (Past 12 Hours) Vital Signs Temp Pulse Resp BP Pulse Ox 12/15/19 12:31 82 20 178/103 H 96 12/15/19 12:30 79 20 173/114 H 96 12/15/19 12:01 84 20 176/95 H 98 12/15/19 11:31 69 21 131/61 96 12/15/19 11:10 70 15 179/97 H 97 12/15/19 10:30 65 12 92/46 L 95 12/15/19 10:02 37.2 C 72 18 121/74 98 12/15/19 10:00 68 12 114/66 96 12/15/19 09:55 68 12 121/74 95 Laboratory Results Short CBC 12/15/19 Range/Units 09:24 WBC 10.31 (4.8-10.8) K/uL Hgb 12.3 (12.0-16.0) g/dL Hct 36.0 L (37-47) % Plt Count 219 (130-400) K/uL BMP 12/15/19 09:24 Sodium 137 Potassium 3.4 L Chloride 101 Carbon Dioxide 25 BUN 55 H Creatinine 2.60 H Glucose 319 H* Calcium 8.6 Liver Function 12/15/19 Range/Units 09:24 Total Bilirubin 0.3 (0.2-1) mg/dl AST 92 H (15-37) U/L ALT 117 H (12-78) U/L Alkaline Phosphatase 108 (45-117) U/L Albumin 2.5 L (3.4-5.0) gm/dl Diagnostic Findings CXR/KUB: IMPRESSION: 1. No acute process in the abdomen. 2. Moderate stable cardiomegaly with chest otherwise negative. Medications Administered Sodium Chloride (Nss 1000ml) 1,000 mls @ 500 mls/hr IV .Q2H AMAURI Stop: 01/14/20 10:14 Last Infusion: 12/15/19 12:46 Dose: 0 mls/hr Documented by: [id number] Admin: 12/15/19 10:42 Dose: 500 mls/hr Documented by: [id number] Discontinued Medications Insulin Human Regular (Novolin R U-100 Per Unit) 8 units SC NOW STA Stop: 12/15/19 11:25 Last Admin: 12/15/19 11:35 Dose: 8 units Documented by: [id number] Cosigned by: [id number] ECG Rate (beats per minute): 68 Rhythm: normal sinus Code Status & VTE Plan Code Status Full Code VTE Prophylaxis Plan VTE Prophylaxis will be ordered: Yes Supervising Physician Co-Signing Physician Notes Patient is a 74-year-old female with history of CVA, diabetes, seizure disorder and other medical problems presents with history of diarrhea since 3 days duration. Patient is a poor historian. Also noted patient to be lethargic but oriented while in ED. She denies any significant abdominal pain, nausea vomiting, fever or chills. No family at bedside. No known history of recent antibiotic use. Please review HPI for complete details of presentation. Patient was noted to have high blood pressure while in ED. Labs suggestive of hypokalemia, acute kidney injury with creatinine of 2.6, hyperglycemia 319, mild transaminitis. UA is currently pending. Chest/abdominal x-ray showed no acute process in the abdomen. CT head, stool studies currently pending. On exam patient is moderately built and nourished, no apparent distress, normocephalic atraumatic, lethargic, lungs-clear to auscultation, S1-S2, no murmur, no pedal edema, abdomen soft, obese, nontender, normal bowel sounds, right hemiparesis--RUE > RLE weakness. Patient is admitted for management of altered mental status, acute kidney injury, hypokalemia, diarrhea, uncontrolled diabetes. Will check CT head, phenytoin levels, ammonia levels, EEG. Stool studies ordered. Will give gentle IV fluids and replace potassium. Magnesium within normal limits. Will hold diuretics, losartan, metformin for now. Will utilize insulin therapy while hospitalized. Aspiration, fall precautions. Will check hepatitis panel, right upper quadrant ultrasound. Avoid hepatotoxic agents as able. Will consider antibiotics if any source of infection identified. Monitor renal function. I personally reviewed the record. Patient is interviewed and examined at bedside. Patient's care is coordinated with Peace Mcdaniels PA-C. Please refer to the documentation above for details of patient's presentation and for discussion of other issues.
[2019-12-15 13:55] LABS: Hepatitis B Surface Antigen Neg (Neg)
--- NOTE | 2019-12-15 14:15 | CT Scan Report ---
CT head/brain wo con CT DOSE: 1074.96 mGy.cm HISTORY: Mental status change altered mental status TECHNIQUE: Multiaxial CT images of the head were performed without the use of intravenous contrast. A dose lowering technique was utilized adhering to the principles of ALARA. Comparison: 04/16/2019 Findings: The paranasal sinuses and mastoid air cells are clear. Trace amount of fluid within the lef t maxillary sinus.. The calvarium and skull base are intact. The ventricles and sulci are within norm al limits. There is no mass, hematoma, midline shift, or acute infarct. Old left cerebral infarct unc hanged from the prior study. No evidence for acute intracranial hemorrhage. Impression: No acute intracranial abnormality. Old left cerebral infarct unchanged from the prior study. ACT 112: Negative or not required by law. The above report was generated using voice recognition software. It may contain grammatical, syntax or spelling errors. Electronically signed by: Pop Scott M.D. 12/15/2019 2:13 PM
[2019-12-15 14:24] LABS: Hepatitis C IgG 13Yrs+Old_Rflx Neg (Neg)
--- NOTE | 2019-12-15 14:25 | Ultrasound Report ---
US abdomen limited HISTORY: Pain. Nausea. elevated LFT. COMPARISON: None. FINDINGS: Pancreas: Poorly seen Liver: Unremarkable. Gallbladder: No gallbladder wall thickening. No gallstones. CBD: 5 mm Right kidney: No hydronephrosis. IMPRESSION: 1. Limited exam due to overlying bowel content.. 2. No significant abnormality is identified. ACT 112: Negative or not required by law. The above report was generated using voice recognition software. It may contain grammatical, syntax or spelling errors. Electronically signed by: Pop Scott M.D. 12/15/2019 2:24 PM
[2019-12-15] MEDS ORDERED: CARBOHYDRATES FOR HYPOGLYCEMIA PO PRN (14:59)
[2019-12-15] MEDS ORDERED: GLUCOSE 10 TABS/TUBE PO PRN (14:59)
[2019-12-15] MEDS ORDERED: GLUCOSE 40% GEL 15 GM TUBE PO PRN (14:59)
[2019-12-15] MEDS ORDERED: POLYETHYLENE (MIRALAX) 17 GM PACK PO PRN (14:59)
[2019-12-15] MEDS ORDERED: BACLOFEN 10 MG TAB PO SCH (14:59)
[2019-12-15] MEDS ORDERED: DEXTROSE 50% 50 ML SYRINGE IV PRN (14:59)
[2019-12-15] MEDS ORDERED: ACETAMINOPHEN 325 MG TAB PO PRN (14:59)
[2019-12-15] MEDS ORDERED: GLUCAGON FOR INJ 1 MG VIAL SQ PRN (14:59)
[2019-12-15] MEDS ORDERED: ONDANSETRON INJ 2 MG/ML 2 ML VIAL IV PRN (14:59)
[2019-12-15] MEDS ORDERED: PHARMACY GLYCEMIC MGMT CONSULT PRN (15:14)
[2019-12-15] MEDS ORDERED: PATIENT'S HEIGHT AND/OR WEIGHT NEEDED SCH (15:30)
[2019-12-15] MEDS: NSS + 20MEQ KCL 20 MEQ/1,000 ML BAG IV SCH (15:49)
[2019-12-15] MEDS: HEPARIN SOD 5,000 UNIT/0.5 ML VIAL SQ SCH ×2 (15:50→21:12)
[2019-12-15] MEDS: INSULIN ASPART 100 UNITS/ML 3 ML PEN SC SCH ×3 (16:48→23:46)
[2019-12-15 17:08] LABS: Appearance Urine Turbid (Clear); Bacteria Urine Automated 4+ (Negative); Bilirubin Urine Negative (Negative); Blood Urine 2+ (Negative); Cast Urine Automated 0 /lpf (0-5); Color Urine Yellow; Epithelial Cell Urine Auto >30 /lpf (0-5); Glucose Urine UA Trace (Negative); Ketones Urine Negative (Negative); Leukocyte Esterase Urine 3+ (Negative); Nitrite Urine Positive (Negative); Protein Urine 2+ (Negative); Specific Gravity Urine 1.016 (1.000-1.030); Urobilinogen Urine Negative (Negative); WBC Urine Automated >30 /hpf (0-5); pH Urine 5.5 (4.5-7.5)
--- NOTE | 2019-12-15 19:01 | Electrocardiogram Report ---
Test Reason : Blood Pressure : / mmHG Vent. Rate : 068 BPM Atrial Rate : 068 BPM P-R Int : 180 ms QRS Dur : 094 ms QT Int : 414 ms P-R-T Axes : 075 031 042 degrees QTc Int : 440 ms Normal sinus rhythm Normal ECG When compared with ECG of 15-APR-2019 23:46, No significant change was found Confirmed by Kermit Goldstein ([id number]) on 12/15/2019 7:01:26 PM Referred By: Confirmed By:Moose Goldstein
[2019-12-15] MEDS ORDERED: SODIUM CHLORIDE 0.9% 1000ML 500 ML IV ONE (19:07)
[2019-12-15] MEDS ORDERED: NYSTATIN CR 15 GM TUBE EXT PRN (19:08)
[2019-12-15] MEDS ORDERED: cefTRIAXone SODIUM 1,000 MG in DEXTROSE 5% 50 ML IV SCH (21:00)
[2019-12-15] MEDS: TOLTERODINE TARTRATE 1 MG TAB PO SCH (21:08)
[2019-12-15] MEDS: PHENYTOIN SODIUM ER 100 MG CAP PO SCH (21:08)
[2019-12-15] MEDS: carvediloL 25 MG TAB PO SCH (21:09)
[2019-12-15] MEDS: INSULIN GLARGINE SOLOSTAR 100 UNITS/ML 3 ML PEN SC SCH (21:10)
[2019-12-16 01:59] LABS: Hepatitis A Antibody IgM NON-REACTIVE (NON-REACTIVE); Hepatitis B Core Antibody IgM NON-REACTIVE (NON-REACTIVE)
[2019-12-16] MEDS: INSULIN ASPART 100 UNITS/ML 3 ML PEN SC SCH ×5 (03:25→20:34)
[2019-12-16] MEDS: ACETAMINOPHEN 1,000 MG/100 ML VIAL IV PRN (04:40)
[2019-12-16] MEDS: NSS + 20MEQ KCL 20 MEQ/1,000 ML BAG IV SCH (05:49)
[2019-12-16] MEDS: HEPARIN SOD 5,000 UNIT/0.5 ML VIAL SQ SCH ×3 (06:04→20:34)
[2019-12-16] MEDS: LEVOTHYROXINE SODIUM 75 MCG TABLET PO SCH (06:05)
[2019-12-16 06:34] LABS: Basophils # (auto) 0.03 K/uL (0-0.2); Basophils % (auto) 0.3 %; Eosinophils # (auto) 0.01 K/uL (0-0.5); Eosinophils % (auto) 0.1 %; Hematocrit (blood only) 30.8 % (37-47); Hemoglobin 10.7 g/dL (12.0-16.0); Immature Granulocytes # (auto) 0.06 K/uL (0.00-0.02); Immature Granulocytes % (auto) 0.6 %; Lymphocytes # (auto) 0.81 K/uL (1.2-3.4); Lymphocytes % (auto) 7.5 %; Mean Corpuscular Hemoglobin 30.5 pg (25-34); Mean Corpuscular Hgb Conc 34.7 g/dL (32-36); Mean Corpuscular Volume 87.7 fL (80-100); Mean Platelet Volume 9.8 fL (7.4-10.4); Monocytes # (auto) 0.49 K/uL (0.11-0.59); Monocytes % (auto) 4.5 %; Neutrophils # (auto) 9.45 K/uL (1.4-6.5); Platelet Count 181 K/uL (130-400); RDW Coefficient of Variation 13.7 % (11.5-14.5); RDW Standard Deviation 44.2 fL (36.4-46.3); Red Blood Count 3.51 M/uL (4.2-5.4); White Blood Count 10.85 K/uL (4.8-10.8)
[2019-12-16 07:30] LABS: Albumin Globulin Ratio 0.5 (0.9-2); Bilirubin,Total 0.5 mg/dl (0.2-1); Creatinine Clr Calc Pharmacy 19.7 ml/min; Est GFR (Non-African American) 19.9; Globulin 4.3 gm/dl (2.5-4.0); Magnesium 1.6 mg/dl (1.8-2.4); Potassium 2.9 mmol/L (3.5-5.1); T4 Free Thyroxine 1.72 ng/dl (0.8-1.6); Thyroid Stimulating Hormone 0.36 uIu/ml (0.300-4.500); Total Protein 6.3 gm/dl (6.4-8.2)
[2019-12-16 08:08] LABS: Estimated Average Glucose 151 mg/dl; Hemoglobin A1C 6.9 % (4.5-5.6)
[2019-12-16] MEDS ORDERED: POTASSIUM CHLORIDE 20 MEQ TABCR PO STA (08:19)
[2019-12-16] MEDS ORDERED: MAGNESIUM OXIDE 400 MG TAB PO SCH (09:00)
[2019-12-16] MEDS ORDERED: AMLODIPINE BESYLATE 5 MG TAB PO SCH (09:00)
[2019-12-16] MEDS ORDERED: carvediloL 25 MG TAB PO SCH (09:00)
--- NOTE | 2019-12-16 10:02 | Hospitalist Progress Note ---
Date of Service December 16, 2019 Assessment & Plan (1) Diarrhea: This is a 74-year-old female who has significant past medical history of left MCA CVA with right hemiplegia in 2001, uncontrolled T2DM, HTN, HLD, CKD stage III, seizure disorder post CVA, hypothyroidism, left vertebral artery stenosis who presents to ED secondary to diarrhea and dehydration x3 days. Patient was hemodynamically stable in ED. She was afebrile, but modestly hypertensive. Lab work notable for elevated BUN and creatinine 55 and 2.60, glucose 319, AST 92, ALT 117, K3.4, H&H 12.3 and 36.0, to WBC 10.31. In ED She received IVF and Regular Insulin. CXR/KUB unremarkable. Pt recently taken off basaglar 12/08 and placed on glimepiride 4mg daily, otherwise no new med changes. No sick contacts. admit to tele stool culture, O+P, cdiff, Hepatitis panel IVF replace electrolytes as needed abd exam benign - no further imaging warranted at this time afebrile - monitor (2) Acute worsening of stage 3 chronic kidney disease: baseline cr 1.2 bun/cr 55/2.60 today likely pre renal in setting of GI LOSS hold HCTZ, metformin losartan avoid nephrotoxic agents IVF 75cc/hr +20meq KCl repeat bmp in a.m. (3) Hypokalemia: k 3.4 replete with IVF 75cc/hr + 20meq KCL follow bmp (4) Transaminitis: AST 92, ALT 117 obtain RUQ U/S Hepatitis Panel, r/o Hep A in setting of diarrheal illness Hold statin (5) Lethargy: pt with unknown baseline mental status, no family at bedside hx of CVA so mild dysarthria at bedside she appears oriented to basics; however lethargic obtain CT head w/o, NH3 likely in setting of ANDREW (6) Diabetes mellitus: Last A1c 12/08/2019 6.0 with HYPERGLYCEMIA today 2/2 to ANDREW Recently taken off Basaglar 13 units twice daily Placed on glimepiride 4 mg daily and continued on metformin consult glycemic pharmacy - appreciate their assistance in management (7) HTN (hypertension): blood pressure elevated in ED pt states she took a.m. meds continue amlodipine, coreg hold HCTZ, losartan in setting of ANDREW (8) History of CVA (cerebrovascular accident): hx of L MCA CVA with RHP in 2001 continue ASA on statin as outpt, hold for now (9) Seizure disorder: continue dilantin check dilantin level follows [facility] neurology obtain EEG due to appeared alteration of mental status (although unknown baseline due to no family at bedside) (10) Hyperlipidemia: statin as outpt hold in 2/2 of acute diarrheal illness/elevated LFTS (11) Hypothyroid: TSH 0.504 last checked in 12/2018 2.90 repeat TSH and free T4 in a.m. consider reducing to to 50mcg daily (12) DVT prophylaxis: SQ Heparin Disposition: admit to telemetry Follow up: PCP Dr. Jones upon discharge Pt was seen and examined in collaboration with Dr. Chaidez please see addendum attempted to contact Louis Lemon, , no answer Admission and Anticipated Discharge Date Admission Date: December 15, 2019 Results & Data Results & Data ([facility]) Vital Signs (Past 12 Hours) Vital Signs Temp Pulse Pulse Resp BP Pulse Ox 12/16/19 07:31 85 12/16/19 07:00 37.1 C 87 18 109/69 97 12/16/19 05:15 37.5 C 12/16/19 04:35 39 C H 91 H 20 123/74 96 12/16/19 00:15 88 12/15/19 22:53 37.6 C H 95 H 18 110/60 95
[2019-12-16] MEDS: TOLTERODINE TARTRATE 1 MG TAB PO SCH ×2 (10:03→20:29)
[2019-12-16] MEDS: ASPIRIN 81 MG CHEW PO SCH (10:03)
[2019-12-16] MEDS: BACLOFEN 10 MG TAB PO SCH (10:04)
[2019-12-16] MEDS ORDERED: MAGNESIUM SULFATE / D5W 1 GM/100 ML BAG IV ONE (10:15)
[2019-12-16] MEDS: PHENYTOIN SODIUM ER 100 MG CAP PO SCH (10:34)
[2019-12-16] MEDS: POTASSIUM CHLORIDE / WTR 10 MEQ/100 ML PLCT IV SCH ×2 (10:43→11:37)
[2019-12-16] MEDS: INSULIN GLARGINE SOLOSTAR 100 UNITS/ML 3 ML PEN SC SCH ×2 (10:44→20:35)
[2019-12-16] MEDS ORDERED: PIPERACILL/TAZOBAC CONSULT ACTIVE PRN (10:55)
[2019-12-16] MEDS ORDERED: PIPERACILLIN/TAZOBACTAM 4.5 GM in DEXTROSE 5% 100 ML IV ONE (11:00)
--- NOTE | 2019-12-16 11:01 | Nephrology Consultation ---
Date of Consultation December 16, 2019 Assessment & Plan (1) Acute worsening of stage 3 chronic kidney disease: nonoliguric ANDREW on CKD 3. Baseline creatinine 1.1-1.2; at baseline as recently as 12-07. Presenting creatinine 2.6 on 12-14; today down to 2.4. electrolyte issues as below. contaminated urine specimen concerning for possible UTI and with GN bacteremia. behaving so far like multifactorial ATN in setting of infection and hypotension -no indication for acute dialysis ro renal biopsy discussion at this time -cont to avoid nephrotoxins -supportive care with daily bmp and fluids, treatment of infection, BP support Present on Admission?: Yes (2) Electrolyte abnormality: hypokalemia on admission worsening and now with new hyperchloremia and metabolic acidosis -change IVF to LR with 20 mEq per L K at same 75 mL per hour rate -daily bmp -recheck bmp and mag later 1699 today >> improved to 3.4 on recheck; creat unchanged >> cont current IVF Present on Admission?: Yes (3) Pyelonephritis, acute: until proven otherwise pt wtih chronic urinary retention/incontinence issues, UA c/w UTI and GN bacteremia has pyelonephritis >recommend CT abd/pelvis non con to r/o obstruction and eval for this or other GN bacteremia sources Present on Admission?: Yes History of Present Illness Reason for Consultation: andrew and electrolyte disturbances Requesting Physician: Dr Nye Attending Physician: Abraham Nye MD History of Present Illness 74 yo F whom I'm asked to see for ANDREW on CKD and electrolyte disorders after she was admitted yesterday with dehydration and 3 days diarrhea leading to same. PMH includes 2001 L MCA stroke comp by post stroke seizures, DM on metformin, HTN on hctz and losartan, CKD 3 baseline creatinine 1.1-1.2 past 2 years (most recently 1.2 on 12-18), carotid and L vertebral artery stenosis. does not follow wtih renal as OP. Presenting creatinine was 2.6 with potassium 3.4, bicarb 25, chloride 101. UA as below. ARB, TZ, metformin held. Pt started on NS with 20 mEq per L K at 75 mL hourly > this am K 2.9, creat 2.4, bicarb 20, chl 112. Urine and blood cxs pending but one blood cx bottle GNR +. Pt on zosyn. pt seen on evenign rounds about 1900. no c/o except that she is thirsty and hungry; denies pain, denies sob. Allergies Allergy/AdvReac Type Severity Reaction Status Date / Time No Known Allergies Allergy Unknown Verified 12/15/19 11:45 Home Medications Home Medications Medication Instructions Recorded Confirmed Type amlodipine 10 mg PO DAILY 04/15/19 12/15/19 History baclofen 10 mg PO TID 04/15/19 12/15/19 History carvedilol 25 mg PO HS 04/15/19 12/15/19 History carvedilol 50 mg PO DAILY 04/15/19 12/15/19 History hydrochlorothiazide 12.5 mg PO BID 04/15/19 12/15/19 History levothyroxine 75 mcg PO DAILYBB 04/15/19 12/15/19 History loratadine 10 mg PO DAILY 04/15/19 12/15/19 History losartan 50 mg PO BID 04/15/19 12/15/19 History metformin 500 mg PO BID 04/15/19 12/15/19 History rosuvastatin 40 mg PO HS 04/15/19 12/15/19 History aspirin 81 mg PO DAILY 12/15/19 12/15/19 History cholecalciferol (vitamin D3) 125 mcg PO DAILY 12/15/19 12/15/19 History [Vitamin D3] ferrous sulfate 325 mg PO BID 12/15/19 12/15/19 History glimepiride 4 mg PO DAILY 12/15/19 12/15/19 History menthol-zinc oxide [Calmoseptine] 1 applic TOPICAL TID 12/15/19 12/15/19 History multivit,stress formula-zinc 1 tab PO DAILY 12/15/19 12/15/19 History [Stress Formula with Zinc] phenytoin sodium extended 100 mg PO HS 12/15/19 12/15/19 History phenytoin sodium extended 200 mg PO DAILY 12/15/19 12/15/19 History polyethylene glycol 3350 [Miralax] 17 g PO DAILY PRN 12/15/19 12/15/19 History tolterodine 2 mg PO DAILY 12/15/19 12/15/19 History Patient History Medical History Anemia Carotid artery stenosis Depression Diabetes mellitus Diabetic nephropathy History of CVA (cerebrovascular accident) hx L MCA CVA with RHP 2001 HTN (hypertension) Hyperlipidemia Hypothyroid Obesity Overactive bladder Seizure disorder s/p CVA TIA (transient ischemic attack) Surgical History History of appendectomy Family History Father Cancer Brother Myocardial infarction Social History Preferred Language: Latvian Communication Ability: Effective Beliefs That Will Affect Care: None Current Living Situation: Family Other Information That Helps Us Care for You: No Feels Safe at Home: Yes Smoking Status: Unknown if ever smoked Hx Alcohol Use: No Hx Substance Use: No Review of Systems Review of Systems: All systems reviewed & are unremarkable except as noted in HPI & below and Other (limited by psychomotor slowing) Physical Exam Constitutional: well developed, well nourished, + physical limitations and + frail appearing; no acute distress Eyes: EOM intact bilaterally ENMT: Ears: no external ear abnormality Nose: no external nose abnormality Mouth: + dry oral mucous membranes (very) Neck: no nuchal rigidity Respiratory: normal respiratory effort Auscultation: + diminished lung sounds Cardiovascular: RRR, no murmur, no edema Gastrointestinal (Abdomen): Inspection/Auscultation: normal bowel sounds Percussion/Palpation: abdomen soft; abdomen nontender Musculoskeletal: Extremities: no cyanosis and no clubbing generalized weakness, worse on R side Skin: no rashes, warm and dry Neurologic: limited speech with psychomotor slowing, oriented to self; R sided weakness and RUE atrophy Psychiatric: Orientation: oriented to person Eye Contact: + fair eye contact Speech: + abnormal rate/rhythm/volume of speech Results & Data Vital Signs (Past 12 Hours) Vital Signs Temp Pulse Pulse Resp BP Pulse Ox 12/16/19 07:31 85 12/16/19 07:00 37.1 C 87 18 109/69 97 12/16/19 05:15 37.5 C 12/16/19 04:35 39 C H 91 H 20 123/74 96 12/16/19 00:15 88 Laboratory Results 12/16/19 06:19 12/16/19 06:19 UA >> turbid yellow 1016, 5.5, trace glucose, 2+ blood & prot, + nitrites, 3+ LE, >30 WBC and epi, no ketones, 4+ bacteria Diagnostic Findings head CT No acute intracranial abnormality. Old left cerebral infarct unchanged from the prior study. cxr-kub 1. No acute process in the abdomen. 2. Moderate stable cardiomegaly with chest otherwise negative. RUQ u-s no signficant path; R kidney ok
[2019-12-16] MEDS: PHENYTOIN 100 MG in SYRINGE 0 ML IV SCH ×2 (11:38→18:14)
[2019-12-16] MEDS: SODIUM CHLORIDE 0.9% 10ML FLUSH IV SCH ×2 (11:38→18:15)
[2019-12-16] MEDS: POTASSIUM CHLORIDE 20 MEQ in LACTATED RINGER'S 1,000 ML IV SCH (11:38)
--- NOTE | 2019-12-16 12:06 | Pharmacy Report ---
Glycemic Control Consultation - Date of Service December 16, 2019 - Scope Scope: Glycemic Pharmacist consulted for glycemic control and to write orders per [facility] inpatient glycemic control protocol. - Objective Weight: 71.5 kg Accuchecks BSG (last 24hrs): 12/15/19 12/15/19 12/15/19 12:44 14:54 16:26 Glucose POC Glucose 327 H* 279 H 293 H 12/15/19 12/15/19 12/15/19 19:16 20:20 23:37 Glucose POC Glucose 209 H 202 H 233 H 12/16/19 12/16/19 12/16/19 03:21 06:19 07:36 Glucose 196 H POC Glucose 228 H 212 H 12/16/19 11:46 Glucose POC Glucose 269 H Laboratory Data (last 24hrs): 12/16/19 06:19 Potassium 2.9 L Carbon Dioxide 20 L Anion Gap 12.0 H Creatinine 2.35 H Est Cr Clr Drug Dosing 19.7 HbA1c: Hemoglobin A1c 6.9 % (4.5-5.6) H 12/16/19 06:19 - Recent Pertinent Medications Outpatient Anti-diabetic Regimen: * Glimepiride 4mg daily (recent change from Basaglar 13 units BID on 12/09/19) * Metformin 500mg PO BID * A1c = 6.9 % 12/16/19 The patient is currently receiving: * Basal insulin: Lantus 12 units every 12 hours * Correctional Insulin: Novolog Correction per scale ACHS Goal Range: Low 110 mg/dL - High 140 mg/dL Correction Factor: 30 mg/dL/unit * Prandial insulin: Per carb ratio of 1 unit per 11 grams CHO consumed * Oral Agents: on hold Risk Factors for Insulin Resistance: * Infection: UTI - IV Ceftriaxone, now changed to Zosyn * Diet: Type 2 DM - Assessment & Plan Assessment & Plan: ASSESSMENT: * 74 yo female, PMHx of left MCA CVA with right hemiplegia in 2001, uncontrolled T2DM, HTN, HLD, CKD stage III, seizure disorder post CVA, hypothyroidism, left vertebral artery stenosis who presents to ED yesterday secondary to diarrhea and dehydration x3 days. * Urine culture growing Ecoli, started on IV Rocephin, changed to IV Zosyn today. * Pt is maintained on oral antidiabetic agents as an outpatient. * Oral agents are not recommended for inpatient use d/t drug interactions, changing PO intake, and difficulty titrating for acute hyper/hypoglycemia. ADA recommends re-initiating outpatient oral agents 1-2 days prior to discharge if/when appropriate if they were held on admission. * Will hold oral agents for admission and utilize SQ basal bolus insulin regimen which is the recommended regimen for inpatient glycemic control. * Tighten CF/CR at this time as blood sugars above goal and rising with meals. * ADA & AACE recommend a goal blood sugar range 140-180 mg/dl for the majority of critically ill & non-critically ill patients. However, more stringent targets may be selected in individual cases. Will utilize more stringent goal of 110-140mg/dl based on patient age & comorbidities. Additionally, tighter glycemic control is warranted to facilitate wound/infection healing. PLAN FOR INPATIENT GLYCEMIC CONTROL: * Holding outpatient oral diabetes medications * Basal insulin * Lantus SQ BID * 7 units for BSG < 140mg/dl * 12 units for BSG 140mg/dl or greater * Bolus insulin * NovoLog per scale ACHS or Q6hrs while NPO * Goal Range: Low 110 mg/dL - High 140 mg/dL * TIGHTEN: Correction Factor: 20 mg/dL/unit * TIGHTEN: Nutritional / Prandial insulin per carb ratio of 1 unit per 6 grams CHO consumed * Please note that the plan above was derived based on current level of insulin resistance and hospital stress. These recommendations are appropriate for inpatient admission only. Plan of care upon discharge will need to be reassessed to avoid potential outpatient hypo/hyperglycemia. Thank you.
--- NOTE | 2019-12-16 13:15 | Electroencephalogram ---
EEG Procedure Note Date of Service December 16, 2019 Start / End Times Start Time: 07:03 End Time: 07:23 Referring Physician Peace Mcdaniels PA-C History A 74-year-old woman with history of symptomatic seizures secondary to previous left MCA stroke with residual right-sided weakness admitted with encephalopathy. EEG performed for evaluation of epileptiform activity Home Medication List Home Medications Medication Instructions Recorded Confirmed Type amlodipine 10 mg PO DAILY 04/15/19 12/15/19 History baclofen 10 mg PO TID 04/15/19 12/15/19 History carvedilol 25 mg PO HS 04/15/19 12/15/19 History carvedilol 50 mg PO DAILY 04/15/19 12/15/19 History hydrochlorothiazide 12.5 mg PO BID 04/15/19 12/15/19 History levothyroxine 75 mcg PO DAILYBB 04/15/19 12/15/19 History loratadine 10 mg PO DAILY 04/15/19 12/15/19 History losartan 50 mg PO BID 04/15/19 12/15/19 History metformin 500 mg PO BID 04/15/19 12/15/19 History rosuvastatin 40 mg PO HS 04/15/19 12/15/19 History aspirin 81 mg PO DAILY 12/15/19 12/15/19 History cholecalciferol (vitamin D3) 125 mcg PO DAILY 12/15/19 12/15/19 History [Vitamin D3] ferrous sulfate 325 mg PO BID 12/15/19 12/15/19 History glimepiride 4 mg PO DAILY 12/15/19 12/15/19 History menthol-zinc oxide [Calmoseptine] 1 applic TOPICAL TID 12/15/19 12/15/19 History multivit,stress formula-zinc 1 tab PO DAILY 12/15/19 12/15/19 History [Stress Formula with Zinc] phenytoin sodium extended 100 mg PO HS 12/15/19 12/15/19 History phenytoin sodium extended 200 mg PO DAILY 12/15/19 12/15/19 History polyethylene glycol 3350 [Miralax] 17 g PO DAILY PRN 12/15/19 12/15/19 History tolterodine 2 mg PO DAILY 12/15/19 12/15/19 History Inpatient Medication List Amlodipine Besylate (Norvasc) 10 mg PO DAILY [facility] Stop: 01/15/20 08:59 Last Admin: 12/16/19 10:04 Dose: Not Given Documented by: [id number] Aspirin (Aspirin Chew) 81 mg PO DAILY [facility] Stop: 01/15/20 08:59 Last Admin: 12/16/19 10:03 Dose: Not Given Documented by: [id number] Baclofen (Lioresal) 10 mg PO DAILY [facility]; Protocol Stop: 01/15/20 08:59 Last Admin: 12/16/19 10:04 Dose: Not Given Documented by: [id number] Carvedilol (Coreg) 25 mg PO HS [facility] Stop: 01/14/20 20:59 Last Admin: 12/15/19 21:09 Dose: 25 mg Documented by: [id number] Carvedilol (Coreg) 50 mg PO DAILY [facility] Stop: 01/15/20 08:59 Last Admin: 12/16/19 10:03 Dose: Not Given Documented by: [id number] Heparin Sodium (Porcine) (Heparin Sodium (Porcine)) 5,000 units SQ Q8 [facility] Stop: 01/14/20 14:58 Last Admin: 12/16/19 13:02 Dose: 5,000 units Documented by: [id number] Cosigned by: [id number] Admin: 12/16/19 06:04 Dose: 5,000 units Documented by: [id number] Cosigned by: [id number] Admin: 12/15/19 21:12 Dose: 5,000 units Documented by: [id number] Cosigned by: [id number] Admin: 12/15/19 15:50 Dose: 5,000 units Documented by: [id number] Cosigned by: [id number] Acetaminophen (Ofirmev) 1,000 mg in 100 mls @ 400 mls/hr IV Q8H PRN PRN Reason: Pain or Fever Stop: 12/18/19 19:54 Last Infusion: 12/16/19 05:14 Dose: 0 mls/hr Documented by: [id number] Admin: 12/16/19 04:40 Dose: 400 mls/hr Documented by: [id number] Phenytoin 100 mg/ Syringe 2 mls @ 1 mls/min IV Q8H [facility] Stop: 01/15/20 10:29 Last Admin: 12/16/19 11:38 Dose: 1 mls/min Documented by: [id number] Potassium Chloride 20 meq/ (Lactated Ringer's) 1,010 mls @ 75 mls/hr IV .[id number] [facility] Stop: 01/15/20 11:44 Last Admin: 12/16/19 11:38 Dose: 75 mls/hr Documented by: [id number] Insulin Aspart (Novolog Flexpen) 0 units SC ACHS [facility]; Protocol Stop: 01/14/20 16:29 Last Admin: 12/16/19 12:59 Dose: 7 units Documented by: [id number] Cosigned by: [id number] Admin: 12/16/19 10:44 Dose: 3 units Documented by: [id number] Cosigned by: [id number] Admin: 12/15/19 21:22 Dose: 3 units Documented by: [id number] Cosigned by: [id number] Admin: 12/15/19 16:48 Dose: 6 units Documented by: [id number] Cosigned by: [id number] Insulin Glargine (Lantus Solostar Pen) 0 units SC BID [facility]; Protocol Stop: 01/14/20 20:59 Last Admin: 12/16/19 10:44 Dose: 12 units Documented by: [id number] Cosigned by: [id number] Admin: 12/15/19 21:10 Dose: 12 units Documented by: [id number] Cosigned by: [id number] Levothyroxine Sodium (Synthroid) 75 mcg PO DAILYBB [facility] Stop: 01/15/20 06:29 Last Admin: 12/16/19 06:05 Dose: Not Given Documented by: [id number] Phenytoin Sodium (Dilantin Er) 200 mg PO DAILY [facility] Stop: 01/15/20 08:59 Last Admin: 12/16/19 10:34 Dose: Not Given Documented by: [id number] Phenytoin Sodium (Dilantin Er) 100 mg PO HS [facility] Stop: 01/14/20 20:59 Last Admin: 12/15/19 21:08 Dose: 100 mg Documented by: [id number] Sodium Chloride (Sodium Chloride Flush) 20 ml IV Q8H [facility] Stop: 01/15/20 10:29 Last Admin: 12/16/19 11:38 Dose: 20 ml Documented by: [id number] Tolterodine Tartrate (Detrol) 1 mg PO BID [facility]; Protocol Stop: 01/14/20 20:59 Last Admin: 12/16/19 10:03 Dose: Not Given Documented by: [id number] Admin: 12/15/19 21:08 Dose: 1 mg Documented by: [id number] Discontinued Medications Baclofen (Lioresal) 10 mg PO TID [facility] Stop: 01/14/20 14:58 Last Admin: 12/15/19 16:02 Dose: Not Given Documented by: [id number] Sodium Chloride (Nss 1000ml) 1,000 mls @ 500 mls/hr IV .Q2H [facility] Stop: 01/14/20 10:14 Last Admin: 12/15/19 15:09 Dose: Not Given Documented by: [id number] Admin: 12/15/19 15:08 Dose: Not Given Documented by: [id number] Infusion: 12/15/19 12:46 Dose: 0 mls/hr Documented by: [id number] Admin: 12/15/19 10:42 Dose: 500 mls/hr Documented by: [id number] Potassium Chloride/Sodium Chloride (Normal Saline W/20 Meq Kcl) 20 meq in 1,000 mls @ 75 mls/hr IV .[id number] [facility] Stop: 01/14/20 14:58 Last Infusion: 12/16/19 11:26 Dose: 0 mls/hr Documented by: [id number] Admin: 12/16/19 05:49 Dose: 75 mls/hr Documented by: [id number] Infusion: 12/16/19 05:09 Dose: 75 mls/hr Documented by: [id number] Admin: 12/15/19 15:49 Dose: 75 mls/hr Documented by: [id number] Sodium Chloride (Nss 1000ml) 500 mls @ 999 mls/hr IV .Q31M ONE Stop: 12/15/19 19:37 Last Infusion: 12/15/19 19:45 Dose: 0 mls/hr Documented by: [id number] Admin: 12/15/19 19:13 Dose: 999 mls/hr Documented by: [id number] Ceftriaxone Sodium 1,000 mg/ (Dextrose) 50 mls @ 100 mls/hr IV Q24H [facility]; Protocol Stop: 12/20/19 20:59 Last Infusion: 12/15/19 22:16 Dose: 0 mls/hr Documented by: [id number] Admin: 12/15/19 21:32 Dose: 100 mls/hr Documented by: [id number] Magnesium Sulfate/Dextrose (Magnesium Sulfate / D5w) 1 gm in 100 mls @ 50 mls/hr IV ONE ONE Stop: 12/16/19 12:14 Last Admin: 12/16/19 10:43 Dose: 50 mls/hr Documented by: [id number] Potassium Chloride (K Harsh / Wtr) 10 meq in 100 mls @ 100 mls/hr IV Q1H [facility] Stop: 12/16/19 12:29 Last Admin: 12/16/19 11:37 Dose: 100 mls/hr Documented by: [id number] Infusion: 12/16/19 11:37 Dose: 100 mls/hr Documented by: [id number] Admin: 12/16/19 10:43 Dose: 100 mls/hr Documented by: [id number] Piperacillin Sod/Tazobactam (Sod 4.5 gm/ Dextrose) 120 mls @ 200 mls/hr IV NOW ONE; Protocol Stop: 12/16/19 11:35 Last Admin: 12/16/19 11:38 Dose: 200 mls/hr Documented by: [id number] Insulin Aspart (Novolog Flexpen) 0 units SC 0000,0400 [facility] Stop: 12/16/19 04:01 Last Admin: 12/16/19 03:25 Dose: 3 units Documented by: [id number] Cosigned by: [id number] Admin: 12/15/19 23:46 Dose: 4 units Documented by: [id number] Cosigned by: [id number] Insulin Human Regular (Novolin R U-100 Per Unit) 8 units SC NOW [facility] Stop: 12/15/19 11:25 Last Admin: 12/15/19 11:35 Dose: 8 units Documented by: [id number] Cosigned by: [id number] Magnesium Oxide (Mag-Ox) 400 mg PO BID [facility] Stop: 01/15/20 08:59 Last Admin: 12/16/19 10:35 Dose: Not Given Documented by: [id number] Miscellaneous (Patient's Height And/Or Weight Needed) 1 ea N/A Q2H [facility] Stop: 12/15/19 17:30 Last Admin: 12/15/19 15:50 Dose: 1 ea Documented by: [id number] Potassium Chloride (Klor-Con M20) 40 meq PO NOW STA Stop: 12/16/19 08:20 Last Admin: 12/16/19 10:35 Dose: Not Given Documented by: [id number] Description This is a 21 electrode EEG with a single channel dedicated to limited EKG. The electrodes were placed in accordance with the International 10-20 system. REPORT: At the onset of the EEG the patient is in altered mental state. The posterior dominant rhythm is not seen. Instead the background is disorganized and predominantly consist of 3-5 Hz theta delta activity. Photic stimulation does not induce any additional abnormalities. No stage 2 sleep transients are recorded. IMPRESSION: This is an abnormal routine EEG in a patient with altered mentation due to moderate to severe background slowing suggestive of a nonspecific encephalopathy. No epileptiform discharges are recorded.
[2019-12-16 17:35] LABS: BUN Creatinine Ratio 21.3 (10-20); Calcium 7.9 mg/dl (8.5-10.1); Creatinine Clr Calc Pharmacy 18.8 ml/min; Est GFR (African American) 21.7; Est GFR (Non-African American) 18.7; Potassium 3.4 mmol/L (3.5-5.1)
--- NOTE | 2019-12-16 17:51 | Hospitalist Progress Note ---
Date of Service December 16, 2019 Assessment & Plan (1) Encephalopathy: (2) Complicated UTI (urinary tract infection): (3) Bacteremia: Encephalopathy secondary to gram-negative bacilli UTI, bacteremia, acute renal failure --Mental status improving Per admitting service notes: This is a 74-year-old female who has significant past medical history of left MCA CVA with right hemiplegia in 2001, uncontrolled T2DM, HTN, HLD, CKD stage III, seizure disorder post CVA, hypothyroidism, left vertebral artery stenosis who presents to ED secondary to diarrhea and dehydration x3 days. Patient was hemodynamically stable in ED. She was afebrile, but modestly hypertensive. Lab work notable for elevated BUN and creatinine 55 and 2.60, glucose 319, AST 92, ALT 117, K3.4, H&H 12.3 and 36.0, to WBC 10.31. In ED She received IVF and Regular Insulin. CXR/KUB unremarkable. Pt recently taken off basaglar 12/08 and placed on glimepiride 4mg daily, otherwise no new med changes. No sick contacts. CT head: Negative EEG: IMPRESSION: This is an abnormal routine EEG in a patient with altered mentation due to moderate to severe background slowing suggestive of a nonspecific encephalopathy. No epileptiform discharges are recorded. 12/16/2019 Patient febrile overnight, T-max 39.5 Urine cultures: Gram-negative bacilli Blood cultures: Gram-negative bacilli COVID test negative Change ceftriaxone to Zosyn CT abdomen pelvis to rule out renal abscess Monitor closely (4) Diarrhea: Resolved Stool cultures and C. difficile pending (5) Acute worsening of stage 3 chronic kidney disease: Per admitting service notes: baseline cr 1.2 bun/cr 55/2.60 likely pre renal in setting of GI LOSS hold HCTZ, metformin losartan Creatinine 2.3 Change IV NSS to LR [facility] consulted, appreciate Dr. Chauhan's recommendations Monitor closely (6) Hypokalemia: replaced with IV and p.o. potassium (7) Transaminitis: AST 92, ALT 117 LFTs improving Right upper quadrant ultrasound: Unrevealing Hepatitis panel: Negative (8) Diabetes mellitus: Per admitting service notes: Last A1c 12/08/2019 6.0 Recently taken off Basaglar 13 units twice daily Placed on glimepiride 4 mg daily and continued on metformin consult glycemic pharmacy - appreciate their assistance in management (9) HTN (hypertension): Blood pressure on the lower side Hold amlodipine, Coreg, HCTZ, losartan Monitor closely (10) History of CVA (cerebrovascular accident): hx of L MCA CVA with RHP in 2001 continue ASA on statin as outpt, hold for now (11) Seizure disorder: continue dilantin Dilantin level low follows [facility] EEG noted above (12) Hyperlipidemia: statin as outpt hold in 2/2 of acute diarrheal illness/elevated LFTS (13) Hypothyroid: TSH 0.3, T4 1.7 Lower levothyroxine to 50 mcg/day Monitor thyroid levels as outpatient (14) DVT prophylaxis: SQ Heparin Disposition: [facility] been [facility] for about a week now We will need physical therapy and Occupational Therapy evaluation Follow up: PCP Dr. Jones upon discharge Admission and Anticipated Discharge Date Admission Date: December 15, 2019 Subjective Follow-up for altered mental status, weakness, UTI, bacteremia Seen sitting up in bed, comfortable, not in distress Patient is oriented x3, answers most questions appropriately States she feels okay overall Denies shortness of breath, cough, chest pain, abdominal pain Did have episodes of vomiting this morning Resolved now Denies other symptoms Review of Systems Review of Systems: All systems reviewed & are unremarkable except as noted in HPI & below Physical Exam Physical Exam: General-appears somewhat weak but awake, oriented x 3, not in distress, speaks in sentences with no effort or accessory muscle use Head- atraumatic Eyes- PERRL, EOMI, anicteric ENT- oropharynx clear Neck- supple, no JVD, no adenopathy, no thyromegaly; carotids +2/2, no bruits appreciated Lungs- clear to auscultation bilaterally, no rales/wheezes Heart- normal rate, regular rhythm; no murmur, no gallop, no rub appreciated Abdomen- normal bowel sounds, nondistended, soft, nontender, no masses or hepatosplenomegaly Extremities- no pretibial edema, no calf tenderness; peripheral pulses intact Neuro- alert, oriented x 3; CN 2-12 grossly intact; motor 5/5 bilaterally;sensation 100% on all extremities; no other gross focal neurologic deficits Skin- warm & dry Results & Data Results & Data ([facility]) Vital Signs (Past 12 Hours) Vital Signs Temp Pulse Pulse Resp BP Pulse Ox 12/16/19 17:22 37.1 C 12/16/19 16:12 38.3 C H 84 18 116/71 99 12/16/19 15:52 82 12/16/19 12:30 88 12/16/19 11:00 37.0 C 79 18 110/69 100 12/16/19 07:31 85 12/16/19 07:00 37.1 C 87 18 109/69 97 Laboratory Results Laboratory Results - last 24 hr 12/15/19 12/15/19 12/15/19 13:00 19:16 20:20 WBC RBC Hgb Hct MCV MCH MCHC RDW Std Deviation RDW Coeff of Maurice Plt Count MPV Immature Gran % (Auto) Neut % (Auto) Lymph % (Auto) Webb % (Auto) Eos % (Auto) Baso % (Auto) Neut # (Auto) Lymph # (Auto) Webb # (Auto) Eos # (Auto) Baso # (Auto) Immature Gran # (Auto) Sodium Potassium Chloride Carbon Dioxide Anion Gap BUN Creatinine Est Cr Clr Drug Dosing Est GFR ( Amer) Est GFR (Non-Af Amer) BUN/Creatinine Ratio Glucose POC Glucose 209 H 202 H Estimat Average Glucose Hemoglobin A1c Calcium Magnesium Total Bilirubin AST ALT Alkaline Phosphatase Ammonia Total Protein Albumin Globulin Albumin/Globulin Ratio TSH Free T4 Nasal Screen MRSA (PCR) COVID-19 PCR Hepatitis A IgM Ab NON-REACTIVE Hep B Core IgM Ab NON-REACTIVE 12/15/19 12/16/19 12/16/19 23:37 03:21 06:19 WBC RBC Hgb Hct MCV MCH MCHC RDW Std Deviation RDW Coeff of Maurice Plt Count MPV Immature Gran % (Auto) Neut % (Auto) Lymph % (Auto) Webb % (Auto) Eos % (Auto) Baso % (Auto) Neut # (Auto) Lymph # (Auto) Webb # (Auto) Eos # (Auto) Baso # (Auto) Immature Gran # (Auto) Sodium Potassium Chloride Carbon Dioxide Anion Gap BUN Creatinine Est Cr Clr Drug Dosing Est GFR ( Amer) Est GFR (Non-Af Amer) BUN/Creatinine Ratio Glucose POC Glucose 233 H 228 H Estimat Average Glucose 151 Hemoglobin A1c 6.9 H Calcium Magnesium Total Bilirubin AST ALT Alkaline Phosphatase Ammonia Total Protein Albumin Globulin Albumin/Globulin Ratio TSH Free T4 Nasal Screen MRSA (PCR) COVID-19 PCR Hepatitis A IgM Ab Hep B Core IgM Ab 12/16/19 12/16/19 12/16/19 06:19 06:19 06:19 WBC 10.85 H RBC 3.51 L Hgb 10.7 L Hct 30.8 L MCV 87.7 MCH 30.5 MCHC 34.7 RDW Std Deviation 44.2 RDW Coeff of Maurice 13.7 Plt Count 181 MPV 9.8 Immature Gran % (Auto) 0.6 Neut % (Auto) 87.0 Lymph % (Auto) 7.5 Webb % (Auto) 4.5 Eos % (Auto) 0.1 Baso % (Auto) 0.3 Neut # (Auto) 9.45 H Lymph # (Auto) 0.81 L Webb # (Auto) 0.49 Eos # (Auto) 0.01 Baso # (Auto) 0.03 Immature Gran # (Auto) 0.06 H Sodium 144 D Potassium 2.9 L Chloride 112 H Carbon Dioxide 20 L Anion Gap 12.0 H BUN 52 H Creatinine 2.35 H Est Cr Clr Drug Dosing 19.7 Est GFR ( Amer) 23.0 Est GFR (Non-Af Amer) 19.9 BUN/Creatinine Ratio 22.0 H Glucose 196 H POC Glucose Estimat Average Glucose Hemoglobin A1c Calcium 8.0 L Magnesium 1.6 L Total Bilirubin 0.5 AST 58 H ALT 80 H Alkaline Phosphatase 91 Ammonia 25.0 Total Protein 6.3 L Albumin 2.0 L Globulin 4.3 H Albumin/Globulin Ratio 0.5 L TSH 0.360 Free T4 1.72 H Nasal Screen MRSA (PCR) COVID-19 PCR Hepatitis A IgM Ab Hep B Core IgM Ab 12/16/19 12/16/19 12/16/19 07:36 11:42 11:46 WBC RBC Hgb Hct MCV MCH MCHC RDW Std Deviation RDW Coeff of Maurice Plt Count MPV Immature Gran % (Auto) Neut % (Auto) Lymph % (Auto) Webb % (Auto) Eos % (Auto) Baso % (Auto) Neut # (Auto) Lymph # (Auto) Webb # (Auto) Eos # (Auto) Baso # (Auto) Immature Gran # (Auto) Sodium Potassium Chloride Carbon Dioxide Anion Gap BUN Creatinine Est Cr Clr Drug Dosing Est GFR ( Amer) Est GFR (Non-Af Amer) BUN/Creatinine Ratio Glucose POC Glucose 212 H 269 H Estimat Average Glucose Hemoglobin A1c Calcium Magnesium Total Bilirubin AST ALT Alkaline Phosphatase Ammonia Total Protein Albumin Globulin Albumin/Globulin Ratio TSH Free T4 Nasal Screen MRSA (PCR) Uninterpretable COVID-19 PCR Hepatitis A IgM Ab Hep B Core IgM Ab 12/16/19 12/16/19 12/16/19 16:39 16:58 Unknown WBC RBC Hgb Hct MCV MCH MCHC RDW Std Deviation RDW Coeff of Maurice Plt Count MPV Immature Gran % (Auto) Neut % (Auto) Lymph % (Auto) Webb % (Auto) Eos % (Auto) Baso % (Auto) Neut # (Auto) Lymph # (Auto) Webb # (Auto) Eos # (Auto) Baso # (Auto) Immature Gran # (Auto) Sodium 137 Potassium 3.4 L D Chloride 106 Carbon Dioxide 23 Anion Gap 8.0 BUN 53 H Creatinine 2.47 H Est Cr Clr Drug Dosing 18.8 Est GFR ( Amer) 21.7 Est GFR (Non-Af Amer) 18.7 BUN/Creatinine Ratio 21.3 H Glucose 161 H POC Glucose 180 H Estimat Average Glucose Hemoglobin A1c Calcium 7.9 L Magnesium 2.0 Total Bilirubin AST ALT Alkaline Phosphatase Ammonia Total Protein Albumin Globulin Albumin/Globulin Ratio TSH Free T4 Nasal Screen MRSA (PCR) COVID-19 PCR NEGATIVE Hepatitis A IgM Ab Hep B Core IgM Ab (1) Diarrhea Diarrhea type: unspecified type Qualified Code(s): R19.7 - Diarrhea, unspecified
[2019-12-16] MEDS: PIPERACILLIN/TAZOBACTAM 3.375 GM in DEXTROSE 5% 100 ML IV SCH (18:56)
--- NOTE | 2019-12-16 19:36 | CT Scan Report ---
ABDOMEN AND PELVIS CT WITHOUT CONTRAST CT DOSE: 931.06 mGy.cm HISTORY: Acute urinary tract infection with flank pain uti, r/o renal abscess TECHNIQUE: Multiaxial CT images of the abdomen and pelvis were performed without contrast. A dose lo wering technique was utilized adhering to the principles of ALARA. COMPARISON STUDY: Abdominal ultrasound 12/15/2019 FINDINGS: Study is limited secondary to positioning, patient motion and lack of contrast. Respiratory motion ar tifact limits evaluation of the lung bases. Mild subsegmental bibasilar atelectasis/neural parenchyma l scarring. There is no pneumatosis or pneumoperitoneum identified. Moderate cardiomegaly. Trace yuly cardial effusion. Limited evaluation of the solid abdominal organs without the use of IV contrast. Th e spleen is mildly enlarged. Hepatic steatosis. No evidence of cirrhosis or ascites. Cholecystectomy. Mild to moderate generalized pancreatic atrophy. Mild generalized thickening suggests hyperplasia. Cortical scarring and parenchymal thinning involves the posterior interpolar left kidney. Linear bran rowan hyperdensities within the right kidney measuring up to 1.4 cm suggests nonobstructing calculi. Mild nonspecific bilateral perinephric stranding. No ureteral calculi or obstructive uropathy. Urinar y bladder is unremarkable. Uterus and left adnexum are within normal limits. Nonspecific 11 mm cystic structure of the right adnexum. Multiple pelvic phleboliths. Calcified plaque of the abdominal aorta without aneurysm. Mildly prominent para-aortic and iliac chain lymph nodes measuring up to 8 mm like ly physiologic. Partially imaged 9 mm right inguinal lymph node is nonspecific. There is mild strandi ng of the mid mesentery which is nonspecific and may reflect a mesenteric panniculitis. Tiny hiatal hernia. No bowel obstruction or bowel wall thickening. Mild colonic diverticulosis. Mild fecal retention. The appendix is not definitively seen. No secondary signs of acute appendicitis. Sma ll fat filled periumbilical hernia, diastases 2.0 cm. There is a moderate sized upper abdominal wall ventral abdominal wall hernia which is fat filled with diastases of 4.1 cm. Demineralized appearance of the bones. General changes of the spine, pelvis and hips. Remote bilateral L5 pars defects with an terolisthesis L5 on S1. Multilevel posterior disc osteophyte complex formations. Prior laminectomy ch anges at L5. Convex right curvature of the thoracolumbar junction. IMPRESSION: 1. Nonobstructing right nephrolithiasis. No ureteral calculi or obstructive uropathy. 2. No bowel obstruction or bowel wall thickening. 3. 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 4. Fat filled ventral abdominal wall hernias. 5. Hepatic steatosis. 6. Additional findings as above. ACT 112: Negative or not required by law. The above report was generated using voice recognition software. It may contain grammatical, syntax o r spelling errors. Electronically signed by: Pasquale Gardner M.D. 12/16/2019 7:35 PM
[2019-12-16] MEDS: MICONAZOLE NITRATE POWDER 43 GM EXT PRN (20:29)
[2019-12-17] MEDS: POTASSIUM CHLORIDE 20 MEQ in LACTATED RINGER'S 1,000 ML IV SCH ×2 (01:13→04:58)
[2019-12-17] MEDS: SODIUM CHLORIDE 0.9% 10ML FLUSH IV SCH ×3 (01:46→18:51)
[2019-12-17] MEDS: PHENYTOIN 100 MG in SYRINGE 0 ML IV SCH ×3 (01:47→18:51)
[2019-12-17] MEDS: ACETAMINOPHEN 1,000 MG/100 ML VIAL IV PRN (04:57)
[2019-12-17] MEDS: PIPERACILLIN/TAZOBACTAM 3.375 GM in DEXTROSE 5% 100 ML IV SCH (06:01)
[2019-12-17] MEDS: HEPARIN SOD 5,000 UNIT/0.5 ML VIAL SQ SCH ×3 (06:02→20:45)
[2019-12-17] MEDS: LEVOTHYROXINE SODIUM 75 MCG TABLET PO SCH (06:02)
[2019-12-17] MEDS: INSULIN ASPART 100 UNITS/ML 3 ML PEN SC SCH ×4 (08:47→20:42)
[2019-12-17] MEDS: TOLTERODINE TARTRATE 1 MG TAB PO SCH ×2 (08:48→20:43)
[2019-12-17] MEDS: INSULIN GLARGINE SOLOSTAR 100 UNITS/ML 3 ML PEN SC SCH ×2 (08:48→20:41)
[2019-12-17] MEDS: ASPIRIN 81 MG CHEW PO SCH (08:49)
[2019-12-17] MEDS: BACLOFEN 10 MG TAB PO SCH (08:50)
--- NOTE | 2019-12-17 10:04 | Nephrology Progress Note ---
Date of Service December 17, 2019 Assessment & Plan (1) Acute worsening of stage 3 chronic kidney disease: Stage 2 nonoliguric ANDREW on CKD 3 from multifactorial ATN in setting of septicemia and infection. Baseline creatinine 1.1-1.2; at baseline as recently as 12-07. Presenting creatinine 2.6 on 12-14; 12/15 down to 2.4. electrolyte issues as below. contaminated urine specimen concerning for possible UTI and with GN bacteremia. -no indication for acute dialysis ro renal biopsy discussion at this time -cont to avoid nephrotoxins -supportive care with daily bmp and fluids, treatment of infection, BP support -f/u pending bmp (2) Electrolyte abnormality: hypokalemia on admission worsening and 12/15 with new hyperchloremia and metabolic acidosis -on LR with 20 mEq per L K at same 75 mL per hour rate > cont LR same rate but increased K to 40 mEq/ L -daily bmp (3) Pyelonephritis, acute: until proven otherwise pt wtih chronic urinary retention/incontinence issues, UA c/w UTI and GN bacteremia has pyelonephritis; no obstruction on imaging >as below for bacteremia (4) E. coli bacteremia: 4/4 + cxs 12/14 on admission (presume E coli d/t urine cx; so far are GNR only); on zosyn> ceftriaxone; still febrile this am but not now -?need for TTE -repeat cxs pending from today Present on Admission?: Yes Admission and Anticipated Discharge Date Admission Date: December 15, 2019 Subjective / blood cxs GNR+; Tmax 38.3 seen on rounds at about well 45: Patient complains of difficulty swallowing and a sore throat. Nursing reports she ate breakfast without issue. No shortness of breath, no cough, no uncontrolled pain Review of Systems Review of Systems: All systems reviewed & are unremarkable except as noted in HPI & below and Other (Limited by cognitive status) Physical Exam Constitutional: well developed, well nourished, + physical limitations and + frail appearing; no acute distress Eyes: EOM intact bilaterally ENMT: Ears: no external ear abnormality Nose: no external nose abnormality Mouth: + dry oral mucous membranes (very) Neck: no nuchal rigidity Respiratory: normal respiratory effort Auscultation: + diminished lung sounds Cardiovascular: RRR, no murmur, no edema Gastrointestinal (Abdomen): Inspection/Auscultation: normal bowel sounds Percussion/Palpation: abdomen soft; abdomen nontender Musculoskeletal: Extremities: no cyanosis and no clubbing Skin: no rashes, warm and dry Neurologic: Moves left side Psychiatric: Orientation: oriented to person Eye Contact: + fair eye contact Speech: + abnormal rate/rhythm/volume of speech Results & Data ([facility]) Vital Signs (Past 12 Hours) Vital Signs Temp Pulse Pulse Resp BP Pulse Ox 12/17/19 03:37 83 12/17/19 03:00 38.3 C H 82 20 107/70 98 12/16/19 23:28 36.9 C 83 20 105/69 97 Laboratory Results 12/17/19 10:16 12/17/19 10:[address] abd/pelvis -Study is limited secondary to positioning, patient motion and lack of contrast. Respiratory motion artifact limits evaluation of the lung bases. Mild subsegmental bibasilar atelectasis/neural parenchymal scarring. There is no pneumatosis or pneumoperitoneum identified. Moderate cardiomegaly. Trace pericardial effusion. Limited evaluation of the solid abdominal organs without the use of IV contrast. The spleen is mildly enlarged. Hepatic steatosis. No evidence of cirrhosis or ascites. Cholecystectomy. Mild to moderate generalized pancreatic atrophy. Mild generalized thickening suggests hyperplasia. -Cortical scarring and parenchymal thinning involves the posterior interpolar left kidney. Linear branching hyperdensities within the right kidney measuring up to 1.4 cm suggests nonobstructing calculi. Mild nonspecific bilateral perinep hric stranding. No ureteral calculi or obstructive uropathy. Urinary bladder is unremarkable. Uterus and left adnexum are within normal limits. Nonspecific 11 mm cystic structure of the right adnexum. Multiple pelvic phleboliths. Calcified plaque of the abdominal aorta without aneurysm. Mildly prominent para-aortic and iliac chain lymph nodes measuring up to 8 mm likely physiologic. Partially imag ed 9 mm right inguinal lymph node is nonspecific. There is mild stranding of the mid mesentery which is nonspecific and may reflect a mesenteric panniculitis. -Tiny hiatal hernia. No bowel obstruction or bowel wall thickening. Mild colonic diverticulosis. Mild fecal retention. The appendix is not definitively seen. No secondary signs of acute appendicitis. Small fat filled periumbilical hernia, di astases 2.0 cm. There is a moderate sized upper abdominal wall ventral abdominal wall hernia which is fat filled with diastases of 4.1 cm. Demineralized appearance of the bones. General changes of the spine, pelvis and hips. Remote bilateral L5 pars defects with anterolisthesis L5 on S1. Multilevel posterior disc osteophyte complex formations. Prior laminectomy changes at L5. Convex right curvature of the thoracolumbar junction. IMPRESSION: 1. Nonobstructing right nephrolithiasis. No ureteral calculi or obstructive uropathy. 2. No bowel obstruction or bowel wall thickening. 3. 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 4. Fat filled ventral abdominal wall hernias. 5. Hepatic steatosis. 6. Additional findings as above.
[2019-12-17 10:49] LABS: Basophils # (auto) 0.01 K/uL (0-0.2); Basophils % (auto) 0.1 %; Eosinophils # (auto) 0.19 K/uL (0-0.5); Eosinophils % (auto) 2.5 %; Hemoglobin 10.3 g/dL (12.0-16.0); Immature Granulocytes # (auto) 0.06 K/uL (0.00-0.02); Immature Granulocytes % (auto) 0.8 %; Lymphocytes # (auto) 1.49 K/uL (1.2-3.4); Lymphocytes % (auto) 19.7 %; Mean Corpuscular Hemoglobin 30.5 pg (25-34); Mean Corpuscular Hgb Conc 34.3 g/dL (32-36); Mean Corpuscular Volume 88.8 fL (80-100); Mean Platelet Volume 9.9 fL (7.4-10.4); Monocytes # (auto) 0.54 K/uL (0.11-0.59); Monocytes % (auto) 7.1 %; Neutrophils # (auto) 5.27 K/uL (1.4-6.5); Neutrophils % (auto) 69.8 %; Platelet Count 146 K/uL (130-400); RDW Coefficient of Variation 14.1 % (11.5-14.5); RDW Standard Deviation 45.9 fL (36.4-46.3); Red Blood Count 3.38 M/uL (4.2-5.4); White Blood Count 7.56 K/uL (4.8-10.8)
[2019-12-17 11:14] LABS: BUN Creatinine Ratio 20.8 (10-20); Calcium 7.7 mg/dl (8.5-10.1); Creatinine Clr Calc Pharmacy 21.9 ml/min; Est GFR (African American) 26.1; Est GFR (Non-African American) 22.5; Magnesium 1.8 mg/dl (1.8-2.4); Phosphorus 2.1 mg/dl (2.5-4.9); Potassium 3.3 mmol/L (3.5-5.1)
[2019-12-17] MEDS: cefTRIAXone SODIUM 2,000 MG in DEXTROSE 5% 50 ML IV SCH (13:27)
[2019-12-17] MEDS ORDERED: NYSTATIN 30 ML, DEXAMETHASONE CONC 3.75 MG, DiphenhydrAMINE Syrup 300 MG, ORA-SWEET SYR... PO PRN (13:46)
[2019-12-17] MEDS: POTASSIUM CHLORIDE 40 MEQ in LACTATED RINGER'S 1,000 ML IV SCH (16:05)
[2019-12-17] MEDS: MICONAZOLE NITRATE POWDER 43 GM EXT PRN (16:10)
--- NOTE | 2019-12-17 19:38 | Hospitalist Progress Note ---
Date of Service December 17, 2019 Assessment & Plan (1) Encephalopathy: (2) Complicated UTI (urinary tract infection): (3) Bacteremia: Encephalopathy secondary to E. coli UTI, bacteremia, acute renal failure --Mental status improved Per admitting service notes: This is a 74-year-old female who has significant past medical history of left MCA CVA with right hemiplegia in 2001, uncontrolled T2DM, HTN, HLD, CKD stage III, seizure disorder post CVA, hypothyroidism, left vertebral artery stenosis who presents to ED secondary to diarrhea and dehydration x3 days. Patient was hemodynamically stable in ED. She was afebrile, but modestly hypertensive. Lab work notable for elevated BUN and creatinine 55 and 2.60, glucose 319, AST 92, ALT 117, K3.4, H&H 12.3 and 36.0, to WBC 10.31. In ED She received IVF and Regular Insulin. CXR/KUB unremarkable. Pt recently taken off basaglar 12/08 and placed on glimepiride 4mg daily, otherwise no new med changes. No sick contacts. CT head: Negative EEG: IMPRESSION: This is an abnormal routine EEG in a patient with altered mentation due to moderate to severe background slowing suggestive of a nonspecific encephalopathy. No epileptiform discharges are recorded. Ental status improved Fever curve improving Urine cultures: E. coli Blood cultures: Gram-negative bacilli COVID test negative CT abdomen pelvis noted Transition Zosyn back to ceftriaxone based on cultures (4) Diarrhea: Resolved Stool cultures and C. difficile pending (5) Acute worsening of stage 3 chronic kidney disease: Per admitting service notes: baseline cr 1.2 bun/cr 55/2.60 likely pre renal in setting of GI LOSS hold HCTZ, metformin losartan Creatinine 2.3, now improved to 2.1 Continue LR with potassium [employer] consulted, appreciate Dr. Chauhan's recommendations Monitor closely (6) Hypokalemia: replaced with IV and p.o. potassium (7) Transaminitis: AST 92, ALT 117 LFTs improving Right upper quadrant ultrasound: Unrevealing Hepatitis panel: Negative (8) Diabetes mellitus: Per admitting service notes: Last A1c 12/08/2019 6.0 Recently taken off Basaglar 13 units twice daily Placed on glimepiride 4 mg daily and continued on metformin consult glycemic pharmacy - appreciate their assistance in management (9) HTN (hypertension): Blood pressure on the lower side Hold amlodipine, Coreg, HCTZ, losartan Monitor closely (10) History of CVA (cerebrovascular accident): hx of L MCA CVA with RHP in 2001 continue ASA on statin as outpt, hold for now (11) Seizure disorder: continue dilantin Dilantin level low follows [facility] neurology EEG noted above (12) Hyperlipidemia: statin as outpt hold in 2/2 of acute diarrheal illness/elevated LFTS (13) Hypothyroid: TSH 0.3, T4 1.7 Lower levothyroxine to 50 mcg/day Monitor thyroid levels as outpatient (14) DVT prophylaxis: SQ Heparin Disposition: [facility] for about a [facility] now We will need physical therapy and Occupational Therapy evaluation Follow up: PCP Dr. Jones upon discharge (15) Open wnd of buttock: Small wound noted right upper buttock region, as well as proximal to the crevice Present admission No other symptoms Admission and Anticipated Discharge Date Admission Date: December 15, 2019 Subjective Follow-up for bacteremia, pyelonephritis, acute renal failure Seen sitting up in bed, comfortable, oriented x3, answers questions appropriately Appears somewhat weak but alert awake and alert States she feels improved overall No shortness of breath, chest pain, abdominal pain Reports sore throat especially with solid foods Denies other symptoms Review of Systems Review of Systems: All systems reviewed & are unremarkable except as noted in HPI & below Physical Exam Physical Exam: General- oriented x 3, not in distress, speaks in sentences with no effort or accessory muscle use Eyes- anicteric Neck- no JVD Lungs- clear BS bilaterally, no crackles or wheezing Heart- normal rate, regular rhythm; no murmurs Abdomen- normal bowel sounds, nondistended, soft, nontender Extremities- no pretibial edema, no calf tenderness Neuro- alert, oriented x 3; no gross focal neurologic deficits Skin- warm & dry Results & Data Results & Data ([facility]) Vital Signs (Past 12 Hours) Vital Signs Temp Pulse Pulse Resp BP Pulse Ox 12/17/19 16:00 66 12/17/19 15:08 36.5 C 70 18 105/76 99 12/17/19 11:20 36.7 C 65 18 100/66 100 Laboratory Results Laboratory Results - last 24 hr 12/16/19 12/17/19 12/17/19 20:34 07:38 10:16 WBC 7.56 RBC 3.38 L Hgb 10.3 L Hct 30.0 L MCV 88.8 MCH 30.5 MCHC 34.3 RDW Std Deviation 45.9 RDW Coeff of Maurice 14.1 Plt Count 146 MPV 9.9 Immature Gran % (Auto) 0.8 Neut % (Auto) 69.8 Lymph % (Auto) 19.7 Dooly % (Auto) 7.1 Eos % (Auto) 2.5 Baso % (Auto) 0.1 Neut # (Auto) 5.27 Lymph # (Auto) 1.49 Dooly # (Auto) 0.54 Eos # (Auto) 0.19 Baso # (Auto) 0.01 Immature Gran # (Auto) 0.06 H Sodium Potassium Chloride Carbon Dioxide Anion Gap BUN Creatinine Est Cr Clr Drug Dosing Est GFR ( Amer) Est GFR (Non-Af Amer) BUN/Creatinine Ratio Glucose POC Glucose 147 H 139 H Calcium Phosphorus Magnesium 12/17/19 12/17/19 12/17/19 10:16 11:44 16:34 WBC RBC Hgb Hct MCV MCH MCHC RDW Std Deviation RDW Coeff of Maurice Plt Count MPV Immature Gran % (Auto) Neut % (Auto) Lymph % (Auto) Dooly % (Auto) Eos % (Auto) Baso % (Auto) Neut # (Auto) Lymph # (Auto) Dooly # (Auto) Eos # (Auto) Baso # (Auto) Immature Gran # (Auto) Sodium 140 Potassium 3.3 L Chloride 109 H Carbon Dioxide 22 Anion Gap 9.0 BUN 44 H Creatinine 2.12 H D Est Cr Clr Drug Dosing 21.9 Est GFR ( Amer) 26.1 Est GFR (Non-Af Amer) 22.5 BUN/Creatinine Ratio 20.8 H Glucose 144 H POC Glucose 150 H 173 H Calcium 7.7 L Phosphorus 2.1 L Magnesium 1.8 (1) Diarrhea Diarrhea type: unspecified type Qualified Code(s): R19.7 - Diarrhea, unspecified
[2019-12-18] MEDS: PHENYTOIN 100 MG in SYRINGE 0 ML IV SCH (02:00)
[2019-12-18] MEDS: SODIUM CHLORIDE 0.9% 10ML FLUSH IV SCH ×3 (02:01→18:27)
[2019-12-18] MEDS: POTASSIUM CHLORIDE 40 MEQ in LACTATED RINGER'S 1,000 ML IV SCH ×2 (04:42→18:27)
[2019-12-18] MEDS: LEVOTHYROXINE SODIUM 75 MCG TABLET PO SCH (05:08)
[2019-12-18] MEDS: HEPARIN SOD 5,000 UNIT/0.5 ML VIAL SQ SCH ×3 (05:09→20:46)
[2019-12-18] MEDS: TOLTERODINE TARTRATE 1 MG TAB PO SCH ×2 (08:17→20:43)
[2019-12-18 08:18] LABS: Basophils # (auto) 0.01 K/uL (0-0.2); Basophils % (auto) 0.1 %; Eosinophils % (auto) 2.6 %; Immature Granulocytes # (auto) 0.05 K/uL (0.00-0.02); Immature Granulocytes % (auto) 0.7 %; Lymphocytes # (auto) 2.21 K/uL (1.2-3.4); Lymphocytes % (auto) 28.8 %; Mean Corpuscular Hemoglobin 30.5 pg (25-34); Mean Corpuscular Hgb Conc 34.5 g/dL (32-36); Mean Corpuscular Volume 88.4 fL (80-100); Mean Platelet Volume 10.1 fL (7.4-10.4); Monocytes # (auto) 0.68 K/uL (0.11-0.59); Monocytes % (auto) 8.9 %; Neutrophils # (auto) 4.53 K/uL (1.4-6.5); Neutrophils % (auto) 58.9 %; Platelet Count 167 K/uL (130-400); RDW Coefficient of Variation 14.2 % (11.5-14.5); RDW Standard Deviation 46.8 fL (36.4-46.3); Red Blood Count 3.28 M/uL (4.2-5.4); White Blood Count 7.68 K/uL (4.8-10.8)
[2019-12-18] MEDS: INSULIN GLARGINE SOLOSTAR 100 UNITS/ML 3 ML PEN SC SCH ×2 (08:18→20:44)
[2019-12-18] MEDS: INSULIN ASPART 100 UNITS/ML 3 ML PEN SC SCH ×4 (08:19→20:45)
[2019-12-18] MEDS: ASPIRIN 81 MG CHEW PO SCH (08:25)
[2019-12-18] MEDS: cefTRIAXone SODIUM 2,000 MG in DEXTROSE 5% 50 ML IV SCH (08:28)
[2019-12-18] MEDS: PHENYTOIN SODIUM ER 100 MG CAP PO SCH ×2 (09:38→20:43)
[2019-12-18] MEDS: BACLOFEN 10 MG TAB PO SCH (09:44)
[2019-12-18 09:50] LABS: BUN Creatinine Ratio 19.4 (10-20); Calcium 8.3 mg/dl (8.5-10.1); Creatinine Clr Calc Pharmacy 27.9 ml/min; Est GFR (African American) 33.6; Magnesium 1.6 mg/dl (1.8-2.4); Potassium 3.8 mmol/L (3.5-5.1)
--- NOTE | 2019-12-18 14:50 | Hospitalist Progress Note ---
Date of Service December 18, 2019 Assessment & Plan (1) Encephalopathy: (2) Complicated UTI (urinary tract infection): (3) Bacteremia: Acute metabolic encephalopathy secondary to E. coli UTI, previous bacteremia, acute renal failure --Mental status improved Per admitting service notes: This is a 74-year-old female who has significant past medical history of left MCA CVA with right hemiplegia in 2001, uncontrolled T2DM, HTN, HLD, CKD stage III, seizure disorder post CVA, hypothyroidism, left vertebral artery stenosis who presents to ED secondary to diarrhea and dehydration x3 days. Patient was hemodynamically stable in ED. She was afebrile, but modestly hypertensive. Lab work notable for elevated BUN and creatinine 55 and 2.60, glucose 319, AST 92, ALT 117, K3.4, H&H 12.3 and 36.0, to WBC 10.31. In ED She received IVF and Regular Insulin. CXR/KUB unremarkable. Pt recently taken off basaglar 12/08 and placed on glimepiride 4mg daily, otherwise no new med changes. No sick contacts. CT head: Negative EEG: IMPRESSION: This is an abnormal routine EEG in a patient with altered m entation due to moderate to severe background slowing suggestive of a nonspecific encephalopathy. No epileptiform discharges are recorded. Mental status back to baseline No afebrile Urine cultures: E. coli Blood cultures: Proteus COVID test negative CT abdomen pelvis: 1. Nonobstructing right nephrolithiasis. No ureteral calculi or obstructive uropathy. 2. No bowel obstruction or bowel wall thickening. 3. 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 4. Fat filled ventral abdominal wall hernias. 5. Hepatic steatosis. 6. Additional findings as above. Continue ceftriaxone IV will consult [facility] infectious disease service (4) Diarrhea: Resolved Stool cultures and C. difficile pending (5) Acute worsening of stage 3 chronic kidney disease: Per admitting service notes: baseline cr 1.2 bun/cr 55/2.60 likely pre renal in setting of GI LOSS hold HCTZ, metformin, losartan Creatinine 2.3, now improved to 1.7 Continue LR with potassium [employer] consulted, appreciate Dr. Chauhan's recommendations Monitor closely (6) Hypokalemia: replaced with IV and p.o. potassium (7) Transaminitis: AST 92, ALT 117 LFTs improving Right upper quadrant ultrasound: Unrevealing Hepatitis panel: Negative (8) Diabetes mellitus: Per admitting service notes: Last A1c 12/08/2019 6.0 Recently taken off Basaglar 13 units twice daily Placed on glimepiride 4 mg daily and continued on metformin consult glycemic pharmacy - appreciate their assistance in management (9) HTN (hypertension): Blood pressure on the lower side Hold amlodipine, Coreg, HCTZ, losartan Monitor closely (10) History of CVA (cerebrovascular accident): hx of L MCA CVA with RHP in 2001 continue ASA on statin as outpt, hold for now (11) Seizure disorder: continue dilantin Dilantin level low follows [facility] neurology EEG noted above (12) Hyperlipidemia: statin as outpt hold in 2/2 of acute diarrheal illness/elevated LFTS (13) Hypothyroid: TSH 0.3, T4 1.7 Lower levothyroxine to 50 mcg/day Monitor thyroid levels as outpatient (14) Open wnd of buttock: Small wound noted right upper buttock region, as well as proximal to the crevice Present admission No other symptoms (15) DVT prophylaxis: SQ Heparin Disposition: Patient recently returned home from [facility] has been home for about a week now Will need physical therapy and Occupational Therapy evaluation Follow up: PCP Dr. Jones upon discharge Disposition May be able to be discharged with p.o. antibiotic regimen, awaiting ID recommendations PT OT recommends home with home health services including PT OT at home Admission and Anticipated Discharge Date Admission Date: December 15, 2019 Subjective Follow-up for E. coli UTI, Proteus bacteremia, acute renal failure Seen resting in bed, sitting up, just had lunch, in good spirits, oriented x3 States she continues to feel better Denies headache, chest pain, shortness of breath abdominal pain, nausea vomiting, problems with urination No fevers or chills No diarrhea Sore throat resolved Appetite is great No other symptoms Review of Systems Review of Systems: All systems reviewed & are unremarkable except as noted in HPI & below Physical Exam Physical Exam: General- oriented x 3, not in distress, speaks in sentences with no effort or accessory muscle use Eyes- anicteric Neck- no JVD Lungs- clear breath sounds bilaterally, no rales/wheezes Heart- normal rate, regular rhythm; no murmurs Abdomen- normal bowel sounds, nondistended, soft, nontender Extremities- no pretibial edema, no calf tenderness Neuro- alert, oriented x 3; no gross focal neurologic deficits Skin- warm & dry Results & Data Results & Data ([facility]) Vital Signs (Past 12 Hours) Vital Signs Temp Pulse Pulse Resp BP Pulse Ox 12/18/19 11:15 36.6 C 79 18 120/78 98 12/18/19 07:25 37.1 C 82 18 114/71 95 12/18/19 07:13 84 12/18/19 03:17 37.8 C H 85 19 115/71 98 (1) Diarrhea Diarrhea type: unspecified type Qualified Code(s): R19.7 - Diarrhea, unspecified
[2019-12-18] MEDS: CARBAMIDE PEROXIDE 6.5% 15 ML BTL OTL SCH (21:06)
[2019-12-18] MEDS ORDERED: Nursing to Pharmacy Communication SCH (23:15)
[2019-12-19] MEDS: LEVOTHYROXINE SODIUM 75 MCG TABLET PO SCH (05:13)
[2019-12-19] MEDS: HEPARIN SOD 5,000 UNIT/0.5 ML VIAL SQ SCH ×3 (05:13→21:12)
[2019-12-19 05:52] LABS: Basophils # (auto) 0.02 K/uL (0-0.2); Basophils % (auto) 0.2 %; Eosinophils # (auto) 0.27 K/uL (0-0.5); Eosinophils % (auto) 3.2 %; Hematocrit (blood only) 31.7 % (37-47); Hemoglobin 10.8 g/dL (12.0-16.0); Immature Granulocytes # (auto) 0.11 K/uL (0.00-0.02); Immature Granulocytes % (auto) 1.3 %; Lymphocytes % (auto) 27.3 %; Mean Corpuscular Hemoglobin 30.3 pg (25-34); Mean Corpuscular Hgb Conc 34.1 g/dL (32-36); Mean Corpuscular Volume 88.8 fL (80-100); Mean Platelet Volume 9.8 fL (7.4-10.4); Monocytes # (auto) 0.66 K/uL (0.11-0.59); Monocytes % (auto) 7.8 %; Neutrophils # (auto) 5.05 K/uL (1.4-6.5); Neutrophils % (auto) 60.2 %; Platelet Count 163 K/uL (130-400); RDW Coefficient of Variation 14.2 % (11.5-14.5); RDW Standard Deviation 46.5 fL (36.4-46.3); Red Blood Count 3.57 M/uL (4.2-5.4); White Blood Count 8.41 K/uL (4.8-10.8)
[2019-12-19 06:26] LABS: BUN Creatinine Ratio 16.1 (10-20); Calcium 8.6 mg/dl (8.5-10.1); Creatinine Clr Calc Pharmacy 34.8 ml/min; Est GFR (African American) 43.8; Est GFR (Non-African American) 37.8; Potassium 4.6 mmol/L (3.5-5.1)
[2019-12-19] MEDS: INSULIN ASPART 100 UNITS/ML 3 ML PEN SC SCH ×4 (08:49→20:21)
[2019-12-19] MEDS: POTASSIUM CHLORIDE 40 MEQ in LACTATED RINGER'S 1,000 ML IV SCH (08:50)
[2019-12-19] MEDS: PHENYTOIN SODIUM ER 100 MG CAP PO SCH ×2 (08:50→20:18)
[2019-12-19] MEDS: TOLTERODINE TARTRATE 1 MG TAB PO SCH ×2 (08:51→20:18)
[2019-12-19] MEDS: INSULIN GLARGINE SOLOSTAR 100 UNITS/ML 3 ML PEN SC SCH ×2 (08:52→20:21)
[2019-12-19] MEDS: CARBAMIDE PEROXIDE 6.5% 15 ML BTL OTL SCH ×2 (08:52→20:20)
[2019-12-19] MEDS: ASPIRIN 81 MG CHEW PO SCH (08:57)
[2019-12-19] MEDS: cefTRIAXone SODIUM 2,000 MG in DEXTROSE 5% 50 ML IV SCH (08:57)
[2019-12-19] MEDS: BACLOFEN 10 MG TAB PO SCH (10:40)
--- NOTE | 2019-12-19 10:50 | Pharmacy Report ---
Glycemic Control Progress Note - Date of Service December 19, 2019 - Scope Glycemic Pharmacist consulted for glycemic control to write orders per [facility] inpatient glycemic control protocol. - Objective Accuchecks BSG(last 24 hours):: 12/18/19 12/18/19 12/18/19 11:28 16:36 20:02 Glucose POC Glucose 225 H 229 H 260 H 12/19/19 12/19/19 05:40 07:39 Glucose 109 H POC Glucose 108 H HbA1c:: Hemoglobin A1c 6.9 % (4.5-5.6) H 12/16/19 06:19 - Recent Pertinent Medications The patient is currently receiving: * Basal insulin: Lantus 7 or 12 units every 12 hours * Correctional Insulin: Novolog Correction per scale ACHS Goal Range: Low 100 mg/dL - High 140 mg/dL Correction Factor: 15 mg/dL/unit * Prandial insulin: Per carb ratio of 1 unit per 7 grams CHO consumed - Outpatient Anti-Diabetic Meds Amaryl 4 mg PO daily metformin 500 mg daily - Assessment & Plan ASSESSMENT: * See progress note from 12/16/2019 for more background info, in short: * Pt receiving SQ basal bolus insulin regimen for hyperglycemia secondary to baseline DM (outpatient regimen on hold) and on Rocephin. Renal function is improving. * Patient is currently receiving an average of 54 units of insulin per day * 19 units of basal insulin * 35 units of prandial/correctional insulin * BSGs ranging 90 - 260 mg/dl over the past 24hrs * Changes needed to insulin regimen: * AM Fasting BSG = 108 mg/dl. This is in goal range for patient based on inpatient targets and co-morbidities. Basal insulin will be fixed at Lantus 10 units SQ BID. * Post-prandial BSGs trended upwards throughout the day yesterday. Carb ohydrate ratio tightened yesterday so will continue. Also added some more basal to AM dose (up from 7 units to 10 units). * Total daily dose = ~60 units. Patient is very bolus heavy which could exp more why as an outpatient she was switched from basal insulin to Amaryl. Monitor. PLAN FOR INPATIENT GLYCEMIC CONTROL: * Changing Lantus to 10 units SQ BID * Continuing correction factor of 15 mg/dl/unit * Continuing carb ratio of 1 unit per 7 grams CHO consumed * Continuing goal range of Low 100 mg/dL - High 140 mg/dL RECOMMENDATIONS FOR DISCHARGE: * Patient's HbA1C indicates excellent control. Recommend checking again in a couple of months to see how Amaryl truly affected HbA1C Thank you.
--- NOTE | 2019-12-19 11:53 | Nephrology Progress Note ---
Date of Service December 19, 2019 Assessment & Plan (1) Acute worsening of stage 3 chronic kidney disease: Stage 2 nonoliguric ANDREW on CKD 3 from multifactorial ATN in setting of septicemia and infection. Baseline creatinine 1.1-1.2; at baseline as recently as 12-07. Presenting creatinine 2.6 on 12-14; 12/15 down to 1.3 today. electrolyte issues as below. contaminated urine specimen concerning for possible UTI and with GN bacteremia. -no indication for acute dialysis ro renal biopsy discussion at this time -cont to avoid nephrotoxins -supportive care with daily bmp and fluids, treatment of infection, BP support (2) Electrolyte abnormality: hypokalemia on admission worsening and 12/15 with new hyperchloremia and metabolic acidosis -on LR with 20 mEq per L K at same 75 mL per hour rate > cont LR same rate but increased K to 40 mEq/ L -daily bmp (3) Pyelonephritis, acute: until proven otherwise pt wtih chronic urinary retention/incontinence issues, UA c/w UTI and GN bacteremia has pyelonephritis; no obstruction on imaging >as below for bacteremia (4) E. coli bacteremia: 4/4 + cxs 12/14 on admission (presume E coli d/t urine cx; so far are GNR only); on zosyn> ceftriaxone; still febrile this am but not now -Continue antibiotics renally dosed Admission and Anticipated Discharge Date Admission Date: December 15, 2019 Subjective She feels better today. No shortness of breath. She complains of pain in the right leg Review of Systems Review of Systems: All systems reviewed & are unremarkable except as noted in HPI & below Physical Exam Physical Exam: General exam: Appears comfortable, no acute distress HEENT: Pupils are equal and reactive to light Neck: No JVD, neck is supple trachea is midline Respiratory system: Clear breath sounds bilaterally. Gastrointestinal: Abdomen is soft, non distended, non tender, bowel sounds are present CVS: Regular rate and rhythm. No murmurs, rubs or gallops Musculoskeletal: No joint or muscle tenderness Extremities: Non tender, no edema, peripheral pulses are present Neuro: Oriented, baseline right-sided hemiplegia Skin: No rashes Results & Data ([facility]) Vital Signs (Past 12 Hours) Vital Signs Temp Pulse Pulse Resp BP Pulse Ox 12/19/19 11:18 37.0 C 84 18 125/75 97 12/19/19 07:14 36.7 C 80 18 150/78 H 97 12/19/19 07:10 81 12/19/19 02:40 37.2 C 76 18 122/80 98 12/19/19 01:27 71 Laboratory Results 12/19/19 05:40 12/19/19 05:40 WBC 8.41 RBC 3.57 L MCV 88.8 MCH 30.3 MCHC 34.1 RDW Std Deviation 46.5 H RDW Coeff of Maurice 14.2 Plt Count 163 MPV 9.8
--- NOTE | 2019-12-19 19:24 | Hospitalist Progress Note ---
Date of Service December 19, 2019 Assessment & Plan (1) Encephalopathy: (2) Complicated UTI (urinary tract infection): (3) Bacteremia: Acute metabolic encephalopathy secondary to E. coli UTI, previous bacteremia, acute renal failure --Mental status improved Per admitting service notes: This is a 74-year-old female who has significant past medical history of left MCA CVA with right hemiplegia in 2001, uncontrolled T2DM, HTN, HLD, CKD stage III, seizure disorder post CVA, hypothyroidism, left vertebral artery stenosis who presents to ED secondary to diarrhea and dehydration x3 days. Patient was hemodynamically stable in ED. She was afebrile, but modestly hypertensive. Lab work notable for elevated BUN and creatinine 55 and 2.60, glucose 319, AST 92, ALT 117, K3.4, H&H 12.3 and 36.0, to WBC 10.31. In ED She received IVF and Regular Insulin. CXR/KUB unremarkable. Pt recently taken off basaglar 12/08 and placed on glimepiride 4mg daily, otherwise no new med changes. No sick contacts. CT head: Negative EEG: IMPRESSION: This is an abnormal routine EEG in a patient with altered m entation due to moderate to severe background slowing suggestive of a nonspecific encephalopathy. No epileptiform discharges are recorded. Mental status back to baseline No afebrile Urine cultures: E. coli Blood cultures: Proteus COVID test negative CT abdomen pelvis: 1. Nonobstructing right nephrolithiasis. No ureteral calculi or obstructive uropathy. 2. No bowel obstruction or bowel wall thickening. 3. 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 4. Fat filled ventral abdominal wall hernias. 5. Hepatic steatosis. 6. Additional findings as above. Continue ceftriaxone IV will consult [facility] infectious disease service--> recommend Cipro PO on discharge (4) Diarrhea: Resolved Stool cultures and C. difficile pending (5) Acute worsening of stage 3 chronic kidney disease: Per admitting service notes: baseline cr 1.2 bun/cr 55/2.60 likely pre renal in setting of GI LOSS hold HCTZ, metformin, losartan Creatinine 2.3, now improved to 1.3 given LR with potassium [employer] consulted, appreciate Dr. Chauhan's recommendations Monitor closely (6) Hypokalemia: replaced with IV and p.o. potassium (7) Transaminitis: AST 92, ALT 117 LFTs improving Right upper quadrant ultrasound: Unrevealing Hepatitis panel: Negative (8) Diabetes mellitus: Per admitting service notes: Last A1c 12/08/2019 6.0 Recently taken off Basaglar 13 units twice daily Placed on glimepiride 4 mg daily and continued on metformin consult glycemic pharmacy - appreciate their assistance in management (9) HTN (hypertension): Blood pressure on the lower side Hold amlodipine, HCTZ, losartan continue Coreg Monitor closely (10) History of CVA (cerebrovascular accident): hx of L MCA CVA with RHP in 2001 continue ASA on statin as outpt, hold for now (11) Seizure disorder: continue dilantin Dilantin level low follows [facility] neurology EEG noted above (12) Hyperlipidemia: statin as outpt hold in 2/2 of acute diarrheal illness/elevated LFTS (13) Hypothyroid: TSH 0.3, T4 1.7 Lower levothyroxine to 50 mcg/day Monitor thyroid levels as outpatient (14) Open wnd of buttock: Small wound noted right upper buttock region, as well as proximal to the crevice Present admission No other symptoms (15) DVT prophylaxis: SQ Heparin Disposition: Patient recently returned home from [facility] has been home for about a week now Will need physical therapy and Occupational Therapy evaluation Follow up: PCP Dr. Jones upon discharge Disposition d/c with PO Cipro PT OT recommends home with home health services including PT OT at home Admission and Anticipated Discharge Date Admission Date: December 15, 2019 Subjective ff up for E coli UTI, Proteus bacteremia, acute renal failure seen resting in bed, comfortable states she feels fine overall denies SOB, chest pain, abdominal pain, nausea appetite is good no other symptoms Review of Systems Review of Systems: All systems reviewed & are unremarkable except as noted in HPI & below Physical Exam Physical Exam: General- oriented x 3, not in distress, speaks in sentences with no effort or accessory muscle use Eyes- anicteric Neck- no JVD Lungs- clear BS BL Heart- normal rate, regular rhythm; no murmurs Abdomen- normal bowel sounds, nondistended, soft, nontender Extremities- no pretibial edema, no calf tenderness Neuro- alert, oriented x 3; no gross focal neurologic deficits Skin- warm & dry Results & Data Results & Data ([facility]) Vital Signs (Past 12 Hours) Vital Signs Temp Pulse Pulse Resp BP Pulse Ox 12/19/19 15:15 36.7 C 96 H 18 144/72 H 97 12/19/19 15:08 77 12/19/19 11:18 37.0 C 84 18 125/75 97 Diagnostic Findings Laboratory Results - last 24 hr 12/18/19 12/19/19 12/19/19 20:02 05:40 05:40 WBC 8.41 RBC 3.57 L Hgb 10.8 L Hct 31.7 L MCV 88.8 MCH 30.3 MCHC 34.1 RDW Std Deviation 46.5 H RDW Coeff of Maurice 14.2 Plt Count 163 MPV 9.8 Immature Gran % (Auto) 1.3 Neut % (Auto) 60.2 Lymph % (Auto) 27.3 [place] % (Auto) 7.8 Eos % (Auto) 3.2 Baso % (Auto) 0.2 Neut # (Auto) 5.05 Lymph # (Auto) 2.30 [place] # (Auto) 0.66 H Eos # (Auto) 0.27 Baso # (Auto) 0.02 Immature Gran # (Auto) 0.11 H Sodium 142 Potassium 4.6 D Chloride 109 H Carbon Dioxide 28 Anion Gap 5.0 BUN 22 H Creatinine 1.38 H D Est Cr Clr Drug Dosing 34.8 Est GFR ( Amer) 43.8 Est GFR (Non-Af Amer) 37.8 BUN/Creatinine Ratio 16.1 Glucose 109 H POC Glucose 260 H Calcium 8.6 12/19/19 12/19/19 12/19/19 07:39 11:49 16:35 WBC RBC Hgb Hct MCV MCH MCHC RDW Std Deviation RDW Coeff of Maurice Plt Count MPV Immature Gran % (Auto) Neut % (Auto) Lymph % (Auto) [place] % (Auto) Eos % (Auto) Baso % (Auto) Neut # (Auto) Lymph # (Auto) [place] # (Auto) Eos # (Auto) Baso # (Auto) Immature Gran # (Auto) Sodium Potassium Chloride Carbon Dioxide Anion Gap BUN Creatinine Est Cr Clr Drug Dosing Est GFR ( Amer) Est GFR (Non-Af Amer) BUN/Creatinine Ratio Glucose POC Glucose 108 H 229 H 126 H Calcium (1) Diarrhea Diarrhea type: unspecified type Qualified Code(s): R19.7 - Diarrhea, unspecified
[2019-12-19] MEDS: carvediloL 25 MG TAB PO SCH (21:11)
[2019-12-20] MEDS: LEVOTHYROXINE SODIUM 75 MCG TABLET PO SCH (05:33)
[2019-12-20] MEDS: HEPARIN SOD 5,000 UNIT/0.5 ML VIAL SQ SCH ×3 (05:33→20:53)
[2019-12-20 08:23] LABS: Basophils # (auto) 0.04 K/uL (0-0.2); Basophils % (auto) 0.4 %; Eosinophils % (auto) 4.5 %; Hematocrit (blood only) 30.1 % (37-47); Hemoglobin 10.2 g/dL (12.0-16.0); Immature Granulocytes % (auto) 2.2 %; Lymphocytes % (auto) 32.6 %; Mean Corpuscular Hemoglobin 30.4 pg (25-34); Mean Corpuscular Hgb Conc 33.9 g/dL (32-36); Mean Corpuscular Volume 89.9 fL (80-100); Mean Platelet Volume 9.6 fL (7.4-10.4); Monocytes # (auto) 0.74 K/uL (0.11-0.59); Monocytes % (auto) 8.3 %; Neutrophils # (auto) 4.61 K/uL (1.4-6.5); Platelet Count 168 K/uL (130-400); RDW Coefficient of Variation 14.5 % (11.5-14.5); RDW Standard Deviation 47.7 fL (36.4-46.3); Red Blood Count 3.35 M/uL (4.2-5.4); White Blood Count 8.89 K/uL (4.8-10.8)
[2019-12-20] MEDS: TOLTERODINE TARTRATE 1 MG TAB PO SCH (08:45)
[2019-12-20] MEDS: PHENYTOIN SODIUM ER 100 MG CAP PO SCH ×2 (08:45→20:52)
[2019-12-20] MEDS: BACLOFEN 10 MG TAB PO SCH (08:46)
[2019-12-20] MEDS: INSULIN GLARGINE SOLOSTAR 100 UNITS/ML 3 ML PEN SC SCH ×2 (08:46→20:53)
[2019-12-20] MEDS: ASPIRIN 81 MG CHEW PO SCH (08:46)
[2019-12-20] MEDS: CARBAMIDE PEROXIDE 6.5% 15 ML BTL OTL SCH ×2 (08:47→20:53)
[2019-12-20] MEDS: INSULIN ASPART 100 UNITS/ML 3 ML PEN SC SCH ×4 (08:47→20:54)
[2019-12-20 08:54] LABS: BUN Creatinine Ratio 11.9 (10-20); Creatinine Clr Calc Pharmacy 32.3 ml/min; Est GFR (African American) 40.3; Est GFR (Non-African American) 34.8; Potassium 4.2 mmol/L (3.5-5.1)
[2019-12-20] MEDS: CIPROFLOXACIN 500 MG TAB PO SCH ×2 (10:23→20:53)
--- NOTE | 2019-12-20 10:57 | Nephrology Progress Note ---
Date of Service December 20, 2019 Assessment & Plan (1) Acute worsening of stage 3 chronic kidney disease: Stage 2 nonoliguric ANDREW on CKD 3 from multifactorial ATN in setting of septicemia and infection. Baseline creatinine 1.1-1.2; at baseline as recently as 12-07. Presenting creatinine 2.6 on 12-14; 12/15 slightly up to 1.48 from 1.3 yesterday electrolyte issues as below. contaminated urine specimen concerning for possible UTI and with GN bacteremia. -no indication for acute dialysis ro renal biopsy discussion at this time -cont to avoid nephrotoxins -supportive care with daily bmp and fluids, treatment of infection, BP support (2) Electrolyte abnormality: hypokalemia on admission worsening and 12/15 with new hyperchloremia and metabolic acidosis -on LR with KCl supplements. K is better at 4.2. -daily bmp (3) Pyelonephritis, acute: until proven otherwise pt wtih chronic urinary retention/incontinence issues, UA c/w UTI and GN bacteremia has pyelonephritis; no obstruction on imaging >as below for bacteremia (4) E. coli bacteremia: 4/4 + cxs 12/14 on admission (presume E coli d/t urine cx; so far are GNR only); on zosyn> ceftriaxone; still febrile this am but not now -Continue antibiotics renally dosed Admission and Anticipated Discharge Date Admission Date: December 15, 2019 Subjective Patient reports to be feeling fine. No shortness of breath. She has right leg pain Review of Systems Review of Systems: All systems reviewed & are unremarkable except as noted in HPI & below Physical Exam Physical Exam: General exam: Appears comfortable, no acute distress HEENT: Pupils are equal and reactive to light Neck: No JVD, neck is supple trachea is midline Respiratory system: Clear breath sounds bilaterally. Gastrointestinal: Abdomen is soft, non distended, non tender, bowel sounds are present CVS: Regular rate and rhythm. No murmurs, rubs or gallops Musculoskeletal: No joint or muscle tenderness Extremities: Non tender, no edema, peripheral pulses are present Neuro: Oriented x3, no tremors, right hemiplegia Skin: No rashes Results & Data ([facility]) Vital Signs (Past 12 Hours) Vital Signs Temp Pulse Pulse Resp BP Pulse Ox 12/20/19 07:09 68 12/20/19 07:03 36.9 C 63 20 117/71 97 12/20/19 03:15 37.1 C 75 18 112/60 98 12/20/19 00:36 79 12/19/19 23:35 36.7 C 72 18 133/79 98 Laboratory Results 12/20/19 08:13 12/20/19 08:13 WBC 8.89 RBC 3.35 L MCV 89.9 MCH 30.4 MCHC 33.9 RDW Std Deviation 47.7 H RDW Coeff of Maurice 14.5 Plt Count 168 MPV 9.6
--- NOTE | 2019-12-20 10:59 | Pharmacy Report ---
Glycemic Control Progress Note - Date of Service December 20, 2019 - Scope Glycemic Pharmacist consulted for glycemic control to write orders per [facility] inpatient glycemic control protocol. - Objective Accuchecks BSG(last 24 hours):: 12/19/19 12/19/19 12/19/19 11:49 16:35 20:21 Glucose POC Glucose 229 H 126 H 145 H 12/20/19 12/20/19 07:12 08:13 Glucose 112 H POC Glucose 118 H HbA1c:: Hemoglobin A1c 6.9 % (4.5-5.6) H 12/16/19 06:19 - Recent Pertinent Medications The patient is currently receiving: * Basal insulin: Lantus 10 units every 12 hours * Correctional Insulin: Novolog Correction per scale ACHS Goal Range: Low 110 mg/dL - High 140 mg/dL Correction Factor: 15 mg/dL/unit * Prandial insulin: Per carb ratio of 1 unit per 6 grams CHO consumed - Outpatient Anti-Diabetic Meds Amaryl 4 mg PO daily metformin 500 mg PO BID - Assessment & Plan ASSESSMENT: * See progress note from 12/06/2019 for more background info, in short: * Pt receiving SQ basal bolus insulin regimen for hyperglycemia secondary to baseline DM (outpatient regimen on hold),stress/infection (patient on PO ciprofloxacin for bacteremia), * Patient is currently receiving an average of 53 units of insulin per day * 20 units of basal insulin * 33 units of prandial/correctional insulin * BSGs ranging 108 - 229 mg/dl over the past 24hrs (only one BSG above range) * Changes needed to insulin regimen: * AM Fasting BSG = 118 mg/dl. This is in goal range for patient based on inpatient targets and co-morbidities. Therefore Basal insulin will be continued. * Post-prandial BSGs are elevated so tightened carbohydrate ratio. * Total daily dose = ~60. PLAN FOR INPATIENT GLYCEMIC CONTROL: * Continuing Lantus 10 units SQ BID * Continuing correction factor of 15 mg/dl/unit * TIGHTEN carb ratio to 1 unit per 5 grams CHO consumed * Continuing goal range of Low 110 mg/dL - High 140 mg/dL RECOMMENDATIONS FOR DISCHARGE: * Patient appears to be well controlled on two oral agents at home. * Recommend caution utilizing metformin with eGFR around 32 mL/min (contraindicated when eGFR < 30 mL/min) * Recommend not utilizing Amaryl in patient with renal dysfunction. If PO option required could use Glipizide instead -- starting around 2.5 mg PO daily and titrating upwards. * Safest option would be Lantus 10 units SQ BID and titrate upwards. Thank you.
--- NOTE | 2019-12-20 17:29 | Hospitalist Progress Note ---
Date of Service December 20, 2019 Assessment & Plan (1) Encephalopathy: (2) Complicated UTI (urinary tract infection): (3) Bacteremia: Acute metabolic encephalopathy secondary to E. coli UTI, previous bacteremia, acute renal failure Per admitting service notes: This is a 74-year-old female who has significant past medical history of left MCA CVA with right hemiplegia in 2001, uncontrolled T2DM, HTN, HLD, CKD stage III, seizure disorder post CVA, hypothyroidism, left vertebral artery stenosis who presents to ED secondary to diarrhea and dehydration x3 days. Patient was hemodynamically stable in ED. She was afebrile, but modestly hypertensive. Lab work notable for elevated BUN and creatinine 55 and 2.60, glucose 319, AST 92, ALT 117, K3.4, H&H 12.3 and 36.0, to WBC 10.31. In ED She received IVF and Regular Insulin. CXR/KUB unremarkable. Pt recently taken off basaglar 12/08 and placed on glimepiride 4mg daily, otherwise no new med changes. No sick contacts. CT head: Negative EEG: IMPRESSION: This is an abnormal routine EEG in a patient with altered mentation due to moderate to severe background slowing suggestive of a nonspecific encephalopathy. No epileptiform discharges are recorded. Mental status back to baseline No afebrile Urine cultures: E. coli Blood cultures: Proteus COVID test negative repeat blood culture: negative CT abdomen pelvis: 1. Nonobstructing right nephrolithiasis. No ureteral calculi or obstructive uropathy. 2. No bowel obstruction or bowel wall thickening. 3. 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 4. Fat filled ventral abdominal wall hernias. 5. Hepatic steatosis. 6. Additional findings as above. Patient was given Zosyn and transition to ceftriaxone IV Gillian HILTON service consulted, recommend to transition to ciprofloxacin p.o. x10 days Monitor renal function, adjust to ciprofloxacin accordingly (4) Diarrhea: Resolved (5) Acute worsening of stage 3 chronic kidney disease: Likely ATN from sepsis, prerenal from dehydration Per admitting service notes: baseline cr 1.2 bun/cr 55/2.60 hold HCTZ, metformin, losartan Creatinine 2.3 Given lactated Ringer's with potassium Gradually improved, now improved to 1.48 Continue lactated Ringer's [employer] Warden consulted, appreciate the recommendations Monitor closely (6) Hypokalemia: replaced with IV and p.o. potassium (7) Transaminitis: AST 92, ALT 117 LFTs improving Right upper quadrant ultrasound: Unrevealing Hepatitis panel: Negative (8) Diabetes mellitus: Per admitting service notes: Last A1c 12/08/2019 6.0 Recently taken off Basaglar 13 units twice daily Placed on glimepiride 4 mg daily and continued on metformin consult glycemic pharmacy - appreciate their assistance in management (9) HTN (hypertension): Held HCTZ, losartan in light of acute renal failure continue Coreg, amlodipine Monitor closely (10) History of CVA (cerebrovascular accident): hx of L MCA CVA with RHP in 2001 continue ASA on statin as outpt (11) Seizure disorder: continue dilantin Dilantin level low follows [facility] neurology EEG noted above (12) Hyperlipidemia: statin as outpt hold in 2/2 of acute diarrheal illness/elevated LFTS (13) Hypothyroid: TSH 0.3, T4 1.7 Lower levothyroxine to 50 mcg/day Monitor thyroid levels as outpatient (14) Open wnd of buttock: Small wound noted right upper buttock region, as well as proximal to the crevice Present admission Wound care service consulted (15) DVT prophylaxis: SQ Heparin Disposition: Patient recently returned home from [facility] and has been home for about a week prior to admission physical therapy and Occupational Therapy evaluation: Recommend return home Follow up: PCP Dr. Jones upon discharge Disposition d/c with PO [place] PT OT recommends home with 24-hour care, lift and home health services including PT OT at home Case management on board Anticipate discharge home tomorrow if medically stable, home arrangements for above have been made Admission and Anticipated Discharge Date Admission Date: December 15, 2019 Subjective Follow-up for sepsis, UTI, bacteremia, acute renal failure Seen resting in bed, comfortable, not in distress, oriented, answers questions appropriately States that she feels fine today overall No abdominal pain, problems urination, nausea vomiting No chest pain, shortness of breath, palpitations, dizziness No other symptoms States she feels tired today and would like to be discharged tomorrow Review of Systems Review of Systems: All systems reviewed & are unremarkable except as noted in HPI & below Physical Exam Physical Exam: General- oriented x 3, not in distress, speaks in sentences with no effort or accessory muscle use Eyes- anicteric Neck- no JVD Lungs- clear breath sounds, no crackles, no wheezing bilaterally Heart- normal rate, regular rhythm; no murmurs Abdomen- normal bowel sounds, nondistended, soft, nontender No CVA tenderness Extremities- no pretibial edema, no calf tenderness Neuro- alert, oriented x 3; no gross focal neurologic deficits Skin- warm & dry Results & Data Results & Data ([facility]) Vital Signs (Past 12 Hours) Vital Signs Temp Pulse Pulse Resp BP Pulse Ox 12/20/19 15:47 79 12/20/19 15:43 36.5 C 91 H 18 146/86 H 93 12/20/19 11:09 36.7 C 78 18 128/77 98 12/20/19 07:09 68 12/20/19 07:03 36.9 C 63 20 117/71 97 Laboratory Results Laboratory Results - last 24 hr 12/19/19 12/20/19 12/20/19 20:21 07:12 08:13 WBC 8.89 RBC 3.35 L Hgb 10.2 L Hct 30.1 L MCV 89.9 MCH 30.4 MCHC 33.9 RDW Std Deviation 47.7 H RDW Coeff of Maurice 14.5 Plt Count 168 MPV 9.6 Immature Gran % (Auto) 2.2 Neut % (Auto) 52.0 Lymph % (Auto) 32.6 [place] % (Auto) 8.3 Eos % (Auto) 4.5 Baso % (Auto) 0.4 Neut # (Auto) 4.61 Lymph # (Auto) 2.90 [place] # (Auto) 0.74 H Eos # (Auto) 0.40 Baso # (Auto) 0.04 Immature Gran # (Auto) 0.20 H Sodium Potassium Chloride Carbon Dioxide Anion Gap BUN Creatinine Est Cr Clr Drug Dosing Est GFR ( Amer) Est GFR (Non-Af Amer) BUN/Creatinine Ratio Glucose POC Glucose 145 H 118 H Calcium 12/20/19 12/20/19 12/20/19 08:13 11:42 16:46 WBC RBC Hgb Hct MCV MCH MCHC RDW Std Deviation RDW Coeff of Maurice Plt Count MPV Immature Gran % (Auto) Neut % (Auto) Lymph % (Auto) [place] % (Auto) Eos % (Auto) Baso % (Auto) Neut # (Auto) Lymph # (Auto) [place] # (Auto) Eos # (Auto) Baso # (Auto) Immature Gran # (Auto) Sodium 139 Potassium 4.2 Chloride 106 Carbon Dioxide 27 Anion Gap 6.0 BUN 18 Creatinine 1.48 H Est Cr Clr Drug Dosing 32.3 Est GFR ( Amer) 40.3 Est GFR (Non-Af Amer) 34.8 BUN/Creatinine Ratio 11.9 Glucose 112 H POC Glucose 145 H 165 H Calcium 9.0 (1) Diarrhea Diarrhea type: unspecified type Qualified Code(s): R19.7 - Diarrhea, unspe cified
[2019-12-20] MEDS ORDERED: LACTATED RINGER'S 1,000 ML IV SCH (18:00)
[2019-12-20] MEDS: carvediloL 25 MG TAB PO SCH (20:52)
[2019-12-21] MEDS: LEVOTHYROXINE SODIUM 75 MCG TABLET PO SCH (06:03)
[2019-12-21] MEDS: HEPARIN SOD 5,000 UNIT/0.5 ML VIAL SQ SCH ×3 (06:03→20:21)
[2019-12-21 07:12] LABS: Basophils # (auto) 0.01 K/uL (0-0.2); Basophils % (auto) 0.1 %; Eosinophils # (auto) 0.44 K/uL (0-0.5); Eosinophils % (auto) 5.1 %; Hematocrit (blood only) 28.6 % (37-47); Hemoglobin 9.4 g/dL (12.0-16.0); Immature Granulocytes # (auto) 0.35 K/uL (0.00-0.02); Lymphocytes # (auto) 2.08 K/uL (1.2-3.4); Mean Corpuscular Hemoglobin 29.7 pg (25-34); Mean Corpuscular Hgb Conc 32.9 g/dL (32-36); Mean Corpuscular Volume 90.2 fL (80-100); Mean Platelet Volume 9.3 fL (7.4-10.4); Monocytes # (auto) 0.73 K/uL (0.11-0.59); Monocytes % (auto) 8.4 %; Neutrophils # (auto) 5.07 K/uL (1.4-6.5); Neutrophils % (auto) 58.4 %; Platelet Count 175 K/uL (130-400); RDW Coefficient of Variation 14.3 % (11.5-14.5); RDW Standard Deviation 47.2 fL (36.4-46.3); Red Blood Count 3.17 M/uL (4.2-5.4); White Blood Count 8.68 K/uL (4.8-10.8)
[2019-12-21 07:49] LABS: Est GFR (African American) 45.8; Potassium 3.9 mmol/L (3.5-5.1)
[2019-12-21 07:50] LABS: BUN Creatinine Ratio 11.1 (10-20); Calcium 8.8 mg/dl (8.5-10.1); Creatinine Clr Calc Pharmacy 35.8 ml/min; Est GFR (Non-African American) 39.6
[2019-12-21] MEDS: CIPROFLOXACIN 500 MG TAB PO SCH ×2 (08:07→20:17)
[2019-12-21] MEDS: BACLOFEN 10 MG TAB PO SCH ×3 (08:08→20:24)
[2019-12-21] MEDS: PHENYTOIN SODIUM ER 100 MG CAP PO SCH ×2 (08:08→20:18)
[2019-12-21] MEDS: TOLTERODINE TARTRATE 1 MG TAB PO SCH (08:09)
[2019-12-21] MEDS: ASPIRIN 81 MG CHEW PO SCH (08:09)
[2019-12-21] MEDS: INSULIN GLARGINE SOLOSTAR 100 UNITS/ML 3 ML PEN SC SCH ×2 (08:10→20:19)
[2019-12-21] MEDS: CARBAMIDE PEROXIDE 6.5% 15 ML BTL OTL SCH ×2 (08:11→20:19)
[2019-12-21] MEDS: INSULIN ASPART 100 UNITS/ML 3 ML PEN SC SCH ×4 (08:12→20:20)
--- NOTE | 2019-12-21 09:41 | Nephrology Progress Note ---
Date of Service December 21, 2019 Assessment & Plan (1) Acute worsening of stage 3 chronic kidney disease: Stage 2 nonoliguric ANDREW on CKD 3 from multifactorial ATN in setting of septicemia and infection. Baseline creatinine 1.1-1.2; at baseline as recently as 12-07. Presenting creatinine 2.6 on 12-14; 12/15 better today at 1.3. Electrolytes are stable and no signs of volume overload. -no indication for acute dialysis or renal biopsy discussion at this time -We will stop IV fluids -cont to avoid nephrotoxins -supportive care with daily bmp, treatment of infection, BP support -From renal standpoint patient can be discharged and follow-up as an outpatient (2) Electrolyte abnormality: hypokalemia on admission worsening and 12/15 with new hyperchloremia and metabolic acidosis -K is better at 3.9 today -daily bmp (3) Pyelonephritis, acute: until proven otherwise pt wtih chronic urinary retention/incontinence issues, UA c/w UTI and GN bacteremia has pyelonephritis; no obstruction on imaging >as below for bacteremia (4) E. coli bacteremia: 4/4 + cxs 12/14 on admission (presume E coli d/t urine cx; so far are GNR only); on zosyn> ceftriaxone; still febrile this am but not now -Continue antibiotics renally dosed Admission and Anticipated Discharge Date Admission Date: December 15, 2019 Subjective She feels better today and would like to go home. No shortness of breath. Creatinine is slightly better today at 1.3 Review of Systems Review of Systems: All systems reviewed & are unremarkable except as noted in HPI & below Physical Exam Physical Exam: General exam: Appears comfortable, no acute distress HEENT: Pupils are equal and reactive to light Neck: No JVD, neck is supple trachea is midline Respiratory system: Clear breath sounds bilaterally. Gastrointestinal: Abdomen is soft, non distended, non tender, bowel sounds are present CVS: Regular rate and rhythm. No murmurs, rubs or gallops Musculoskeletal: No joint or muscle tenderness Extremities: Non tender, no edema, peripheral pulses are present Neuro: Oriented, right hemiplegia Skin: No rashes Results & Data ([facility]) Vital Signs (Past 12 Hours) Vital Signs Temp Pulse Resp BP Pulse Ox 12/21/19 06:51 36.7 C 77 18 121/67 96 12/21/19 04:27 36.8 C 56 L 18 110/62 96 12/20/19 23:45 37.1 C 67 20 137/72 97 Laboratory Results 12/21/19 07:00 12/21/19 07:00 WBC 8.68 RBC 3.17 L MCV 90.2 MCH 29.7 MCHC 32.9 RDW Std Deviation 47.2 H RDW Coeff of Maurice 14.3 Plt Count 175 MPV 9.3
--- NOTE | 2019-12-21 13:50 | Hospitalist Progress Note ---
Date of Service December 21, 2019 Assessment & Plan (1) Encephalopathy: (2) Complicated UTI (urinary tract infection): (3) Bacteremia: Acute metabolic encephalopathy secondary to E. coli UTI, previous bacteremia, acute renal failure mental status improved to baseline Per admitting service notes: This is a 74-year-old female who has significant past medical history of left MCA CVA with right hemiplegia in 2001, uncontrolled T2DM, HTN, HLD, CKD stage III, seizure disorder post CVA, hypothyroidism, left vertebral artery stenosis who presents to ED secondary to diarrhea and dehydration x3 days. CT head: Negative No afebrile Urine cultures: E. coli Blood cultures: Proteus COVID test negative repeat blood culture: negative CT abdomen pelvis: 1. Nonobstructing right nephrolithiasis. No ureteral calculi or obstructive uropathy. 2. No bowel obstruction or bowel wall thickening. 3. 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 4. Fat filled ventral abdominal wall hernias. 5. Hepatic steatosis. 6. Additional findings as above. Patient was given Zosyn and transition to ceftriaxone IV [facility] ID service consulted, recommend to transition to ciprofloxacin p.o. x10 days (4) Diarrhea: Resolved (5) Acute worsening of stage 3 chronic kidney disease: Likely ATN from sepsis, prerenal from dehydration Per admitting service notes: baseline cr 1.2 bun/cr 55/2.60 hold HCTZ, metformin, losartan Given IV fluids Creatinine improved to baseline 1.3 today Hospital Personnel Director consulted, appreciate the recommendations To be discharged home today, patient is instructed to avoid NSAIDs HCTZ and losartan kept on hold on discharge, BMP repeat in a week with the next clinic visit Diuretics can be resumed if kidney status remains stable Will benefit with outpatient nephrology follow-up (6) Hypokalemia: Normal level (7) Transaminitis: AST 92, ALT 117 LFTs improving Right upper quadrant ultrasound: Unrevealing Hepatitis panel: Negative (8) Diabetes mellitus: Per admitting service notes: Last A1c 12/08/2019 6.0 Recently taken off Basaglar 13 units twice daily Placed on glimepiride 4 mg daily and continued on metformin consult glycemic pharmacy - appreciate their assistance in management (9) HTN (hypertension): Held HCTZ, losartan in light of acute renal failure continue Coreg, amlodipine (10) History of CVA (cerebrovascular accident): hx of L MCA CVA with RHP in 2001 continue ASA on statin as outpt (11) Seizure disorder: continue dilantin Dilantin level low follows [facility] neurology EEG no seizure activity (12) Hyperlipidemia: statin as outpt hold in 2/2 of acute diarrheal illness/elevated LFTS (13) Hypothyroid: TSH 0.3, T4 1.7 Lower levothyroxine to 50 mcg/day Monitor thyroid levels as outpatient (14) Open wnd of buttock: Small wound noted right upper buttock region, as well as proximal to the crevice Present admission Wound care service consulted (15) DVT prophylaxis: SQ Heparin Disposition: Medically stable to return home with home health, Lives with son, Update given to son Keith Lemon over phone Follow up: PCP Dr. Jones upon discharge Admission and Anticipated Discharge Date Admission Date: December 15, 2019 Subjective Patient reports that she is feeling fine, no pain or discomfort No fever or chills, vitals stable Hoping to get discharged to home today Review of Systems Review of Systems: All systems reviewed & are unremarkable except as noted in HPI & below Physical Exam Constitutional: WD/WN, vitals as above + obese; no acute distress Eyes: PERRL, conjunctivae normal, anicteric sclerae ENMT: external ear and nose normal, oropharynx normal Neck: trachea midline, no thyromegaly Respiratory: normal respiratory effort, lungs clear to auscultation Cardiovascular: RRR, no murmur, no edema Gastrointestinal (Abdomen): Percussion/Palpation: abdomen soft; abdomen nontender Neurologic: + focal motor deficit (Right hemiplegia from previous stroke) Speech / Cognition: + abnormal speech (Dysarthria) Baseline dysarthria, moves all extremities, no focal motor deficit Psychiatric: Orientation: alert; + not oriented x 3 (Oriented to place and person) Results & Data Results & Data ([facility]) Vital Signs (Past 12 Hours) Vital Signs Temp Pulse Pulse Resp BP Pulse Ox 12/21/19 11:18 36.7 C 81 16 149/75 H 92 12/21/19 09:00 75 12/21/19 06:51 36.7 C 77 18 121/67 96 12/21/19 04:27 36.8 C 56 L 18 110/62 96 (1) Diarrhea Diarrhea type: unspecified type Qualified Code(s): R19.7 - Diarrhea, unspecified
--- NOTE | 2019-12-21 15:25 | Communication Note ---
Date of Service: December 21, 2019 Health ride could not be arranged for patient to be discharged home today, Scheduled for pickup at 9309:45 AM tomorrow Patient will be discharged in a.m. once ride is available Son is updated by CM. Sierra Suárez
[2019-12-21] MEDS: carvediloL 25 MG TAB PO SCH (20:18)
[2019-12-22] MEDS: LEVOTHYROXINE SODIUM 75 MCG TABLET PO SCH (05:43)
[2019-12-22] MEDS: HEPARIN SOD 5,000 UNIT/0.5 ML VIAL SQ SCH (05:43)
[2019-12-22 06:08] LABS: Basophils # (auto) 0.02 K/uL (0-0.2); Basophils % (auto) 0.2 %; Eosinophils # (auto) 0.48 K/uL (0-0.5); Eosinophils % (auto) 4.9 %; Hematocrit (blood only) 29.6 % (37-47); Hemoglobin 9.7 g/dL (12.0-16.0); Immature Granulocytes # (auto) 0.46 K/uL (0.00-0.02); Immature Granulocytes % (auto) 4.7 %; Lymphocytes # (auto) 2.61 K/uL (1.2-3.4); Lymphocytes % (auto) 26.8 %; Mean Corpuscular Hgb Conc 32.8 g/dL (32-36); Mean Corpuscular Volume 91.6 fL (80-100); Mean Platelet Volume 9.2 fL (7.4-10.4); Monocytes # (auto) 0.72 K/uL (0.11-0.59); Monocytes % (auto) 7.4 %; Neutrophils # (auto) 5.45 K/uL (1.4-6.5); Platelet Count 212 K/uL (130-400); RDW Coefficient of Variation 14.6 % (11.5-14.5); RDW Standard Deviation 48.7 fL (36.4-46.3); Red Blood Count 3.23 M/uL (4.2-5.4); White Blood Count 9.74 K/uL (4.8-10.8)
[2019-12-22 06:42] LABS: Albumin Level 2.2 gm/dl (3.4-5.0); BUN Creatinine Ratio 7.8 (10-20); Bilirubin Direct 0.1 mg/dl (0-0.2); Bilirubin,Total 0.3 mg/dl (0.2-1); Calcium 8.5 mg/dl (8.5-10.1); Creatinine Clr Calc Pharmacy 36.2 ml/min; Est GFR (African American) 47.1; Est GFR (Non-African American) 40.7; Potassium 3.7 mmol/L (3.5-5.1); Total Protein 6.5 gm/dl (6.4-8.2)
[2019-12-22] MEDS: PHENYTOIN SODIUM ER 100 MG CAP PO SCH (08:07)
[2019-12-22] MEDS: CIPROFLOXACIN 500 MG TAB PO SCH (08:07)
[2019-12-22] MEDS: CARBAMIDE PEROXIDE 6.5% 15 ML BTL OTL SCH (08:08)
[2019-12-22] MEDS: INSULIN GLARGINE SOLOSTAR 100 UNITS/ML 3 ML PEN SC SCH (08:09)
[2019-12-22] MEDS: INSULIN ASPART 100 UNITS/ML 3 ML PEN SC SCH (08:10)
[2019-12-22] MEDS: ASPIRIN 81 MG CHEW PO SCH (08:13)
[2019-12-22] MEDS: TOLTERODINE TARTRATE 1 MG TAB PO SCH (08:13)
--- NOTE | 2019-12-22 08:38 | Hospitalist Progress Note ---
Date of Service December 22, 2019 Assessment & Plan (1) Encephalopathy: (2) Complicated UTI (urinary tract infection): (3) Bacteremia: Acute metabolic encephalopathy secondary to E. coli UTI, previous bacteremia, acute renal failure mental status improved to baseline Per admitting service notes: This is a 74-year-old female who has significant past medical history of left MCA CVA with right hemiplegia in 2001, uncontrolled T2DM, HTN, HLD, CKD stage III, seizure disorder post CVA, hypothyroidism, left vertebral artery stenosis who presents to ED secondary to diarrhea and dehydration x3 days. CT head: Negative No afebrile Urine cultures: E. coli Blood cultures: Proteus COVID test negative repeat blood culture: negative CT abdomen pelvis: 1. Nonobstructing right nephrolithiasis. No ureteral calculi or obstructive uropathy. 2. No bowel obstruction or bowel wall thickening. 3. 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 4. Fat filled ventral abdominal wall hernias. 5. Hepatic steatosis. 6. Additional findings as above. Patient was given Zosyn and transition to ceftriaxone IV [facility] ID service consulted, recommend to transition to ciprofloxacin p.o. x10 days 5 more days of PO cipro script sent to [facility] stable to be discharged home today (4) Diarrhea: Resolved (5) Acute worsening of stage 3 chronic kidney disease: Likely ATN from sepsis, prerenal from dehydration resolved , renal function at baseline Cr 1.3 today baseline cr 1.2 bun/cr 55/2.60 Glycerine Plant Operator consulted, appreciate the recommendations To be discharged home today, patient is instructed to avoid NSAIDs HCTZ and losartan kept on hold on discharge, BMP repeat in a week with the next clinic visit Diuretics can be resumed if kidney status remains stable Will benefit with outpatient nephrology follow-up (6) Hypokalemia: Normal level (7) Transaminitis: resolved normal liver function Right upper quadrant ultrasound: Unrevealing Hepatitis panel: Negative (8) Diabetes mellitus: Per admitting service notes: Last A1c 12/08/2019 6.0 Recently taken off Basaglar 13 units twice daily Placed on glimepiride 4 mg daily and continued on metformin consult glycemic pharmacy - appreciate their assistance in management (9) HTN (hypertension): Held HCTZ, losartan in light of acute renal failure continue Coreg, amlodipine (10) History of CVA (cerebrovascular accident): hx of L MCA CVA with RHP in 2001 continue ASA on statin as outpt (11) Seizure disorder: continue dilantin Dilantin level low follows [facility] neurology EEG no seizure activity (12) Hyperlipidemia: statin resumed (13) Hypothyroid: TSH 0.3, T4 1.7 Lower levothyroxine to 50 mcg/day TSH check in 6 weeks (14) Open wnd of buttock: Small wound noted right upper buttock region, as well as proximal to the crevice Present admission Wound care service consulted (15) DVT prophylaxis: SQ Heparin Disposition: Medically stable to be discharged home today with home health, Follow up: PCP Dr. Jones upon discharge Admission and Anticipated Discharge Date Admission Date: December 15, 2019 Subjective feels fine no complain of fever or chills no cough ready to be discharged home today Physical Exam Constitutional: WD/WN, vitals as above + obese; no acute distress Eyes: PERRL, conjunctivae normal, anicteric sclerae ENMT: external ear and nose normal, oropharynx normal Neck: trachea midline, no thyromegaly Respiratory: normal respiratory effort, lungs clear to auscultation Cardiovascular: RRR, no murmur, no edema Gastrointestinal (Abdomen): Percussion/Palpation: abdomen soft; abdomen nontender Neurologic: + focal motor deficit (Right hemiplegia from previous stroke) Speech / Cognition: + abnormal speech (Dysarthria) Psychiatric: A+Ox3, euthymic affect Results & Data Results & Data ([facility]) Vital Signs (Past 12 Hours) Vital Signs Temp Pulse Pulse Pulse Resp BP Pulse Ox 12/22/19 07:25 78 12/22/19 07:01 36.7 C 65 18 115/76 98 12/22/19 03:59 36.3 C L 70 20 123/76 95 12/21/19 23:58 73 12/21/19 23:36 37.3 C 67 67 20 116/71 93 (1) Diarrhea Diarrhea type: unspecified type Qualified Code(s): R19.7 - Diarrhea, unspecified
[2019-12-22] MEDS ORDERED: BACLOFEN 10 MG TAB PO ONE (09:00)
--- NOTE | 2019-12-22 17:54 | Discharge Summary ---
Date of Service December 22, 2019 Admission HPI Per Admitting Provider This is a 74-year-old female who has significant past medical history of left MCA CVA with right hemiplegia in 2001, uncontrolled T2DM, HTN, HLD, CKD stage III, seizure disorder post CVA, hypothyroidism, left vertebral artery stenosis who presents to ED secondary to diarrhea and dehydration x3 days. Patient is a poor historian and there is no family at bedside. Reportedly patient has been suffering from diarrhea for the past 3 days. No known sick contacts. Unknown frequency or consistency of stool. She denies eating bagged lettuce. She denies fever, chills, sweats, lightheadedness, chest pain, shortness, cough, nausea, vomiting, abdominal pain. She does complain of inability to move right side which is chronic due to previous stroke. Unaware of any blood in stool. Is incontinent of urine at times. Admits to taking a.m. medications, but unsure which ones. Denies any known covid exposure. Spoke to ED provider who provide most of history. Son Keith Lemon was contacted, but no answer. Patient was hemodynamically stable in ED. She was afebrile, but modestly hypertensive. Lab work notable for elevated BUN and creatinine 55 and 2.60, glucose 319, AST 92, ALT 117, K3.4, H&H 12.3 and 36.0, to WBC 10.31. In ED She received IVF and Regular Insulin. CXR/KUB unremarkable. Principal Diagnosis ACUTE RENAL FAILURE /PYELONEPHRITIS Discharge Exam Constitutional WD/WN, vitals as above + obese; no acute distress Eyes PERRL, conjunctivae normal, anicteric sclerae ENMT external ear and nose normal, oropharynx normal Neck trachea midline, no thyromegaly Respiratory normal respiratory effort, lungs clear to auscultation Cardiovascular RRR, no murmur, no edema Gastrointestinal (Abdomen) Percussion/Palpation: abdomen soft; abdomen nontender Neurologic + focal motor deficit (Right hemiplegia from previous stroke) Speech / Cognition: + abnormal speech (Dysarthria) Psychiatric A+Ox3, euthymic affect Orientation: alert; + not oriented x 3 (Oriented to place and person) Discharge Data Allergies Allergy/AdvReac Type Severity Reaction Status Date / Time No Known Allergies Allergy Unknown Verified 12/15/19 11:45 Consultations 12/15/19 12:05 ED Decision to Admit Stat 07/16/20 14:59 Consult Case Management - Discharge Planning Routine 12/16/19 09:44 Consult Nephrology Routine 12/18/19 14:46 Consult Infectious Diseases Routine Ordered Studies 12/15/19 12:45 US abdomen limited Routine 12/15/19 12:50 CT head/brain wo con Urgent 12/16/19 17:51 CT abd pelvis wo con Routine Hospital Course (1) Encephalopathy: (2) Complicated UTI (urinary tract infection): (3) Bacteremia: Acute metabolic encephalopathy secondary to E. coli UTI, previous bacteremia, acute renal failure mental status improved to baseline Per admitting service notes: This is a 74-year-old female who has significant past medical history of left MCA CVA with right hemiplegia in 2001, uncontrolled T2DM, HTN, HLD, CKD stage III, seizure disorder post CVA, hypothyroidism, left vertebral artery stenosis who presents to ED secondary to diarrhea and dehydration x3 days. CT head: Negative No afebrile Urine cultures: E. coli Blood cultures: Proteus COVID test negative repeat blood culture: negative CT abdomen pelvis: 1. Nonobstructing right nephrolithiasis. No ureteral calculi or obstructive uropathy. 2. No bowel obstruction or bowel wall thickening. 3. 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 4. Fat filled ventral abdominal wall hernias. 5. Hepatic steatosis. 6. Additional findings as above. Patient was given Zosyn and transition to ceftriaxone IV [facility] ID service consulted, recommend to transition to ciprofloxacin p.o. x10 days 5 more days of PO cipro script sent to [facility] stable to be discharged home today (4) Diarrhea: Resolved (5) Acute worsening of stage 3 chronic kidney disease: Likely ATN from sepsis, prerenal from dehydration resolved , renal function at baseline Cr 1.3 today baseline cr 1.2 bun/cr 55/2.60 Transportation Maintenance Operator consulted, appreciate the recommendations To be discharged home today, patient is instructed to avoid NSAIDs HCTZ and losartan kept on hold on discharge, BMP repeat in a week with the next clinic visit Diuretics can be resumed if kidney status remains stable Will benefit with outpatient nephrology follow-up (6) Hypokalemia: Normal level (7) Transaminitis: resolved normal liver function Right upper quadrant ultrasound: Unrevealing Hepatitis panel: Negative (8) Diabetes mellitus: Per admitting service notes: Last A1c 12/08/2019 6.0 Recently taken off Basaglar 13 units twice daily Placed on glimepiride 4 mg daily and continued on metformin consult glycemic pharmacy - appreciate their assistance in management (9) HTN (hypertension): Held HCTZ, losartan in light of acute renal failure continue Coreg, amlodipine (10) History of CVA (cerebrovascular accident): hx of L MCA CVA with RHP in 2001 continue ASA on statin as outpt (11) Seizure disorder: continue dilantin Dilantin level low follows [facility] neurology EEG no seizure activity (12) Hyperlipidemia: statin resumed (13) Hypothyroid: TSH 0.3, T4 1.7 Lower levothyroxine to 50 mcg/day TSH check in 6 weeks (14) Open wnd of buttock: Small wound noted right upper buttock region, as well as proximal to the crevice Present admission Wound care service consulted (15) DVT prophylaxis: SQ Heparin Disposition: Medically stable to be discharged home today with home health, Follow up: PCP Dr. Jones upon discharge Total Time Total Time Spent Total Time Spent (In Minutes): 35 mins Total Time Includes: Examination of the Patient, Discharge Planning and Medication Reconciliation Discharge Plan Discharge Items Patient Disposition: Home - Home Health Services Reason For Visit: ANDERW, DIARRHEA Discharge Diagnosis: ACUTE RENAL FAILURE , PYELONEPHRITIS Activity: As commented below Activity Comment: TOLERATED Non-emergency contact: Primary Care Provider Call non-emergency contact if: you have any medication questions Follow-up/Referrals: Caleb Torres MD [Physician] - (Follow-up with supervisor files in 4-6 weeks, please call to schedule an appointment) PCP,NO [Primary Care Provider] - (HOSPITAL FOLLOW UP WITH DR JONES ON 12/27/19 @ 2: 20 PM ) Diet: Carb Consistent or DM2 and Heart Healthy Ambulatory Orders: Basic Metabolic Panel (Routine) Timeframe: 1 Week Location: Determined by Patient Ordered By: Sierra Bhatti Attending Provider Instructions: HOSPITAL FOLLOW UP WITH DR JONES ON 12/27/19 @ 2: 20 PM Need to follow-up with kidney specialist/nephrology please arrange appointment/referral to your family physician Do not take losartan, hydrochlorothiazide until Lab work is reviewed by family physician Do not take high-dose aspirin, Aleve, Advil, Motrin, naproxen, ibuprofen-avoid group of pain medication belonging to NSAIDs Which can cause worsening of your kidney function Levothyroxine dose reduced to 50 mcg daily(was on 75 mcg daily) Repeat thyroid function test in 6 weeks Pending Studies at Discharge: Yes Studies:: lab : BASIC METABOLIC PANEL WITH NEXT PHYSICIAN VISIT TSH in 6 weeks -Levothyroxine dose adjustment Stand-Alone Forms: [facility] [employer], Smoking Cessation Medications and DC Order Prescriptions: New ciprofloxacin HCl 500 mg Tablet 500 mg PO BID 5 Days Qty: 10 RF: 0 Continued baclofen 10 mg tablet 10 mg PO TID RF: 0 amlodipine 10 mg tablet 10 mg PO DAILY RF: 0 carvedilol 25 mg tablet 25 mg PO HS RF: 0 carvedilol 25 mg tablet 50 mg PO DAILY RF: 0 metformin 500 mg tablet extended release 24 hr 500 mg PO BID RF: 0 loratadine 10 mg tablet 10 mg PO DAILY RF: 0 rosuvastatin 40 mg tablet 40 mg PO HS RF: 0 phenytoin sodium extended 200 mg capsule 200 mg PO DAILY RF: 0 tolterodine 2 mg tablet 2 mg PO DAILY RF: 0 ferrous sulfate 325 mg (65 mg iron) Tablet 325 mg PO BID RF: 0 aspirin 81 mg Tablet,Chewable 81 mg PO DAILY RF: 0 polyethylene glycol 3350 [Miralax] 17 gram/dose Powder 17 g PO DAILY PRN (Reason: Constipation) RF: 0 cholecalciferol (vitamin D3) [Vitamin D3] 125 mcg (5,000 unit) Tablet 125 mcg PO DAILY RF: 0 Stress Formula with Zinc Tablet 1 tab PO DAILY RF: 0 Calmoseptine 0.44-20.6 % Ointment 1 applic TOPICAL TID RF: 0 phenytoin sodium extended 200 mg Capsule 100 mg PO HS RF: 0 glimepiride 4 mg tablet 4 mg PO DAILY RF: 0 Changed levothyroxine 75 mcg tablet 50 mcg PO DAILYBB Qty: 0 RF: 0 Discontinued losartan 50 mg tablet 50 mg PO BID RF: 0 hydrochlorothiazide 12.5 mg capsule 12.5 mg PO BID RF: 0 Discharge Orders: Discharge Order (Routine); Ordered 12/22/19 Ordered By: Sierra Suárez Admission Data Admit Date/Time: 12/15/19 12:34 Attending Provider: Sierra Suárez Admit Provider: Ivan Chaidez Primary Care Provider: PCP,NO Other Providers: Ivan Chaidez ; Annelise Pereyra ; [facility] ; Rodger Valdivia ; Funmilayo Melissa ; Titus Merlos I. ; Manuel Dubon II ; Jayne Palencia ; Pop Ruiz Other Interventions: Discharge Summary Assessment (RN) Last Done: 12/22/19 09:05 DC Date/Time DO NOT enter until pt leaves facility: 12/22/19 09:41
== END 2019-12-22 09:41 | disposition home health service (06) | DRG 871 ==
LOC: ED 09:48 → 2N 12:34 → SUATTDRO 12:34 → 2N 13:20 → 2W 12-16 12:08 → 2N 12-17 07:55

== ENCOUNTER 2021-05-22 09:58 | Inpatient (IN) ==
--- NOTE | 2021-05-22 10:06 | Emergency Department Note ---
Impression & Plan Hypertensive urgency, History of CVA (cerebrovascular accident), Hypokalemia, Headache, Hyperglycemia ED Provider Note NAME: BRADY MONTERO AGE: 76 SEX: F : 1945 ARRIVES VIA: Ambulance INFORMANT: Patient, ED PROVIDER(S): Marco A Srivastava MD Chief Complaint: Headaches HPI: Patient presents today due to concern for headache. Patient denies any current headache but reportedly has been having bifrontal headache for approximate 10 days in duration. There has been some intermittent confusion and altered mental status as well. Patient does present from home. Last about 30 minutes and typically subsides. The patient has not taken anything for the pain as it resolves on its own. Patient has no associated nausea vomiting. No photophobia. No neck pain. Patient has not had these type symptoms before. Patient has had some chills but no reported fever. Patient is vaccinated for flu and Covid. Patient did not take her morning medications. 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 After discussion with one of the patient's primary caregivers who is the daught er-in-law further information was obtained. [id number] states that the patient has had intermittent thoughts of paranoia and delusion thinking people are coming to get her. This typically only occurs at nighttime and has been recent. Patient is also virtually bed and chair bound and the daughter is concerned about their ability to continue to provide in-home care. Patient does not have any in-home health or assist at the home at this time and the [id number] is concerned about her safety and ability to care for the patient. ROS: See HPI for pertinent positives and negatives. A total of 10 systems were reviewed and otherwise negative. Past medical history: See below Surgical history: See below Social history: See below Physical Exam: GENERAL: NAD, wearing a mask, non-toxic. EYE EXAM: Normal conjunctiva. PERRL, no anisocoria and EOM's grossly intact w/o pain. OROPHARYNX: Moist mucus membranes. Edentulous. NECK: Supple, no nuchal rigidity, no adenopathy, non-tender. No signs of meningismus. LUNGS: Clear to auscultation. Normal chest wall mechanics. HEART: NSR, no MRG. ABDOMEN: Abdomen soft, non-tender, normo-active bowel sounds, no masses, no rebound or guarding. BACK: No CVA TTP. SKIN: No rashes and no bruising. UPPER EXTREMITIES: Upper extremities are grossly normal. LOWER EXTREMITIES: Grossly normal, no edema. NEURO EXAM: A&O x3, cranial nerves II-XII grossly intact, deliberate speech, moves all 4 extremities but with weakness of right upper extremity and right lower extremity. Differential diagnoses: Migraine headache, meningitis, sinusitis, CO exposure, ICH, SAH, infection, tumor, headache, sinus thrombosis, arterial dissection, as well as other pathologies. Course: Patient was seen and evaluated the bedside. Full history physical exam was p erformed. Imaging Studies: See Below Cardiac monitoring: An order was placed for continuous cardiac monitoring. The monitor shows a rate of 82 with sinus rhythm. MDM: Patient did present due to concern for headache. Patient did have some elevated blood pressure and this was treated with labetalol as the patient did not take her home medications. Blood work is obtained along with CT of the head. Patient's blood work shows a normal white count H&H and platelet count. Kidney function is unremarkable with mild hypokalemia which is ordered for repleted. Mild elevation in glucose at 144. LFTs grossly unremarkable. Urinalysis does not show evidence of obvious infection. Urine culture was added. The patient was rolled and does not have any evidence of soft tissue ulceration. I did sp eak the on-call hospitalist Peace De Souza PA-C and the patient was admitted to the [facility] service by Dr. Chaidez. Past Med/Surg History Medical History Anemia Carotid artery stenosis CKD (chronic kidney disease), stage III Depression Diabetes mellitus Diabetes mellitus, type II Diabetic nephropathy History of CVA (cerebrovascular accident) hx L MCA CVA with RHP 2001 HTN (hypertension) Hyperlipidemia Hypothyroid Obesity Overactive bladder Seizure disorder s/p CVA TIA (transient ischemic attack) Surgical History History of appendectomy Family History Father Cancer Brother Myocardial infarction Social History Smoking Status: Never smoker Hx Alcohol Use: No Hx Substance Use: No Preferred Language: Mexican Communication Ability: Effective Beliefs That Will Affect Care: None Current Living Situation: Family Feels Safe at Home: Yes Assistive Devices: None Allergies Allergies Allergy/AdvReac Type Severity Reaction Status Date / Time No Known Allergies Allergy Unknown Verified 12/15/19 11:45 Home Meds Home Medications Medication Instructions Recorded Confirmed metformin 500 mg tablet,extended 1,000 mg PO DAILY 04/15/19 05/22/21 release 24 hr rosuvastatin 40 mg tablet 40 mg PO HS 04/15/19 05/22/21 aspirin 81 mg chewable tablet 81 mg PO DAILY 12/15/19 05/22/21 cholecalciferol (vitamin D3) 125 125 mcg PO DAILY 12/15/19 05/22/21 mcg (5,000 unit) tablet (Vitamin D3) losartan 25 mg tablet 25 mg PO DAILY 05/07/21 05/22/21 pantoprazole 40 mg tablet,delayed 40 mg PO DAILYBB 05/07/21 05/22/21 release phenytoin sodium extended 100 mg 200 mg PO BID 05/07/21 05/22/21 capsule Previous Rx's Medication Instructions Recorded levothyroxine 75 mcg tablet 50 mcg PO DAILYBB #0 tab 12/21/19 Results & Data (ED) Vital Signs Vital Signs - 24 hr 05/22/21 10:13 05/22/21 10:20 05/22/21 10:30 Temperature 37.0 C Temperature Source Oral Pulse Rate 85 86 82 Pulse Rate [Left] Pulse Rate from SpO2 Sensor 82 Pulse Rhythm Regular Pulse Rhythm [Left] Pulse Strength [Left] Respiratory Rate 26 H 21 24 Respiratory Effort / Characteristics Non-Labored Spontaneous Respiratory Depth Normal Respiratory Pattern Regular Blood Pressure 203/115 H Blood Pressure [Left Arm] Blood Pressure Mean 144 Blood Pressure Mean [Left Arm] Blood Pressure Position Semi-fowlers Blood Pressure Position [Left Arm] Pulse Oximetry 97 96 Oxygen Delivery Method Room Air Room Air Sepsis Recent Fever Within 48 Hours No Sepsis New/Unexplained Change in Mental Status No Sepsis Action Taken by Nursing No Action Required 05/22/21 10:40 05/22/21 10:44 05/22/21 10:50 Temperature Temperature Source Pulse Rate 75 69 Pulse Rate [Left] 72 Pulse Rate from SpO2 Sensor 75 70 Pulse Rhythm Pulse Rhythm [Left] Regular Pulse Strength [Left] Respiratory Rate 24 18 17 Respiratory Effort / Characteristics Non-Labored Spontaneous Respiratory Depth Normal Respiratory Pattern Regular Blood Pressure Blood Pressure [Left Arm] 157/100 H Blood Pressure Mean Blood Pressure Mean [Left Arm] 119 Blood Pressure Position Blood Pressure Position [Left Arm] Semi-fowlers Pulse Oximetry 98 95 97 Oxygen Delivery Method Room Air Sepsis Recent Fever Within 48 Hours Sepsis New/Unexplained Change in Mental Status Sepsis Action Taken by Nursing 05/22/21 12:00 05/22/21 14:00 Temperature Temperature Source Pulse Rate Pulse Rate [Left] 66 88 Pulse Rate from SpO2 Sensor Pulse Rhythm Pulse Rhythm [Left] Regular Regular Pulse Strength [Left] Normal Normal Respiratory Rate 18 16 Respiratory Effort / Characteristics Non-Labored Non-Labored Respiratory Depth Normal Normal Respiratory Pattern Regular Regular Blood Pressure Blood Pressure [Left Arm] 158/80 H 138/93 Blood Pressure Mean Blood Pressure Mean [Left Arm] 106 108 Blood Pressure Position Blood Pressure Position [Left Arm] Lying Pulse Oximetry 95 99 Oxygen Delivery Method Room Air Room Air Sepsis Recent Fever Within 48 Hours Sepsis New/Unexplained Change in Mental Status Sepsis Action Taken by [facility] Medications Current Medication List: was personally reviewed by me Laboratory Data Attestation: I reviewed the patient's lab results. Result diagrams: 05/22/21 10:45 05/22/21 10:45 Lab Results 05/22/21 05/22/21 05/22/21 Range/Units 10:45 10:45 10:45 WBC 7.43 (4.8-10.8) K/uL RBC 4.63 (4.2-5.4) M/uL Hgb 13.0 (12.0-16.0) g/dL Hct 41.2 (37-47) % MCV 89.0 (80-100) fL MCH 28.1 (25-34) pg MCHC 31.6 L (32-36) g/dL RDW Std Deviation 45.8 (36.4-46.3) fL RDW Coeff of Maurice 14.0 (11.5-14.5) % Plt Count 218 (130-400) K/uL MPV 9.3 (7.4-10.4) fL Immature Gran % (Auto) 0.3 % Neut % (Auto) 60.7 % Lymph % (Auto) 28.9 % [place] % (Auto) 6.7 % Eos % (Auto) 3.1 % Baso % (Auto) 0.3 % Neut # (Auto) 4.51 (1.4-6.5) K/uL Lymph # (Auto) 2.15 (1.2-3.4) K/uL [place] # (Auto) 0.50 (0.11-0.59) K/uL Eos # (Auto) 0.23 (0-0.5) K/uL Baso # (Auto) 0.02 (0-0.2) K/uL Immature Gran # (Auto) 0.02 (0.00-0.02) K/uL ESR 48 H (0-30) mm/hr Sodium 139 (136-145) mmol/L Potassium 3.3 L (3.5-5.1) mmol/L Chloride 103 (98-107) mmol/L Carbon Dioxide 29 (21-32) mmol/L Anion Gap 7.0 (3-11) BUN 12 (7-18) mg/dl Creatinine 0.82 (0.6-1.2) mg/dl Est Cr Clr Drug Dosing 57.0 ml/min Est GFR ( Amer) 81.1 ml/min Est GFR (Non-Af Amer) 70.0 ml/min BUN/Creatinine Ratio 15.0 (10-20) Glucose 144 H (70-99) mg/dl Calcium 9.1 (8.5-10.1) mg/dl Total Bilirubin 0.2 (0.2-1) mg/dl AST 26 (15-37) U/L ALT 35 (12-78) Alkaline Phosphatase 93 (45-117) U/L Total Protein 7.8 (6.4-8.2) gm/dl Albumin 3.4 (3.4-5.0) gm/dl Globulin 4.4 H (2.5-4.0) gm/dl Albumin/Globulin Ratio 0.8 L (0.9-2) Urine Color Urine Appearance (Clear) Urine pH (4.5-7.5) Ur Specific Steele (1.000-1.030) Urine Protein (Negative) Urine Glucose (UA) (Negative) Urine Ketones (Negative) Urine Blood (Negative) Urine Nitrite (Negative) Urine Bilirubin (Negative) Urine Urobilinogen (Negative) Ur Leukocyte Esterase (Negative) Urine WBC (Auto) (0-5) /hpf Urine RBC (Auto) (0-4) /hpf U Hyaline Cast (Auto) (0-5) /lpf U Epithel Cells (Auto) (0-5) /lpf Urine Bacteria (Auto) (Negative) SARS-CoV-2, RNA, NAAT (NEGATIVE) 05/22/21 05/22/21 Range/Units Unknown Unknown WBC (4.8-10.8) K/uL RBC (4.2-5.4) M/uL Hgb (12.0-16.0) g/dL Hct (37-47) % MCV (80-100) fL MCH (25-34) pg MCHC (32-36) g/dL RDW Std Deviation (36.4-46.3) fL RDW Coeff of Maurice (11.5-14.5) % Plt Count (130-400) K/uL MPV (7.4-10.4) fL Immature Gran % (Auto) % Neut % (Auto) % Lymph % (Auto) % [place] % (Auto) % Eos % (Auto) % Baso % (Auto) % Neut # (Auto) (1.4-6.5) K/uL Lymph # (Auto) (1.2-3.4) K/uL [place] # (Auto) (0.11-0.59) K/uL Eos # (Auto) (0-0.5) K/uL Baso # (Auto) (0-0.2) K/uL Immature Gran # (Auto) (0.00-0.02) K/uL ESR (0-30) mm/hr Sodium (136-145) mmol/L Potassium (3.5-5.1) mmol/L Chloride (98-107) mmol/L Carbon Dioxide (21-32) mmol/L Anion Gap (3-11) BUN (7-18) mg/dl Creatinine (0.6-1.2) mg/dl Est Cr Clr Drug Dosing ml/min Est GFR ( Amer) ml/min Est GFR (Non-Af Amer) ml/min BUN/Creatinine Ratio (10-20) Glucose (70-99) mg/dl Calcium (8.5-10.1) mg/dl Total Bilirubin (0.2-1) mg/dl AST (15-37) U/L ALT (12-78) Alkaline Phosphatase (45-117) U/L Total Protein (6.4-8.2) gm/dl Albumin (3.4-5.0) gm/dl Globulin (2.5-4.0) gm/dl Albumin/Globulin Ratio (0.9-2) Urine Color Yellow Urine Appearance Clear (Clear) Urine pH 7.5 (4.5-7.5) Ur Specific Steele 1.016 (1.000-1.030) Urine Protein 2+ H (Negative) Urine Glucose (UA) Negative (Negative) Urine Ketones Negative (Negative) Urine Blood Negative (Negative) Urine Nitrite Negative (Negative) Urine Bilirubin Negative (Negative) Urine Urobilinogen Negative (Negative) Ur Leukocyte Esterase Negative (Negative) Urine WBC (Auto) 1-5 (0-5) /hpf Urine RBC (Auto) 0-4 (0-4) /hpf U Hyaline Cast (Auto) 5-10 H (0-5) /lpf U Epithel Cells (Auto) >30 H (0-5) /lpf Urine Bacteria (Auto) Negative (Negative) SARS-CoV-2, RNA, NAAT NEGATIVE (NEGATIVE) Administered Medications Discontinued Medications Labetalol HCl (Labetalol Hcl Iv 5 Mg/Ml 20ml) 10 mg IV NOW STA Stop: 05/22/21 10:29 Last Admin: 05/22/21 10:43 Dose: 10 mg Documented by: [id number] Cosigned by: [id number] Losartan Potassium (Losartan Potassium 25 Mg Tab) 25 mg PO NOW STA Stop: 05/22/21 11:08 Last Admin: 05/22/21 12:15 Dose: 25 mg Documented by: [id number] Potassium Chloride (Potassium Chloride Crtab 20 Meq Tabcr) 40 meq PO NOW STA Stop: 05/22/21 11:34 Last Admin: 05/22/21 12:15 Dose: 40 meq Documented by: [id number] Imaging Data Radiologist's Impression: Head CT 05/22/21 10:28 CT head/brain wo con CLINICAL HISTORY: hx of left MCA stroke, new onest headache and AMS COMPARISON STUDY: 05/07/2021 CT DOSE: 537.48 mGy.cm TECHNIQUE: Standard CT of the Brain was performed without IV contrast. A dose lowering technique was utilized adhering to the principles of ALARA. FINDINGS: Extraaxial space: There is no evidence for subdural hematoma. There are no extra-axial fluid collections. Ventricles and cisterns: The ventricles are normal in size and configuration. There is no evidence for midline shift or mass effect. Parenchyma: There is no subarachnoid or intraparenchymal hemorrhage. There is no evidence for an acute infarct or cerebral edema. A large area of encephalomalacia is again identified within the left temporal parietal lobe in the distribution of the middle cerebral artery. There is homogeneous attenuation of the brain parenchyma. There are no gross mass lesions. Osseous structures: There is no evidence for an acute fracture. There is again a fluid level present within the left maxillary antrum. The remaining visualized paranasal sinuses are clear. The mastoid air cells are clear bilaterally. Soft tissues: There is no evidence for focal soft tissue swelling. IMPRESSION: No acute intracerebral pathology. There is again evidence for encephalomalacia involving the distribution of the left middle cerebral artery from old left MCA infarct. Acute left maxillary sinusitis is present. ACT 112: Negative or not required by law. Electronically signed by: Terrance Dempsey M.D. 05/22/2021 11:34 AM Discharge Plan Visit Data Chief Complaint: Headache Stated Complaint: HEADACHE ED Provider: Marco A Srivastava ED Midlevel Provider: Antonia Granados Discharge Problem: Hypertensive urgency, History of CVA (cerebrovascular accident), Hypokalemia, Headache, Hyperglycemia Patient Disposition: Admitted As Inpatient Forms Stand Alone Forms: My [facility] Prescriptions Prescriptions: No Action metformin 500 mg tablet extended release 24 hr 1,000 mg PO DAILY RF: 0 rosuvastatin 40 mg tablet 40 mg PO HS RF: 0 aspirin 81 mg Tablet,Chewable 81 mg PO DAILY RF: 0 cholecalciferol (vitamin D3) [Vitamin D3] 125 mcg (5,000 unit) Tablet 125 mcg PO DAILY RF: 0 levothyroxine 75 mcg tablet 50 mcg PO DAILYBB Qty: 0 RF: 0 phenytoin sodium extended 100 mg capsule 200 mg PO BID RF: 0 pantoprazole 40 mg tablet,delayed release (DR/EC) 40 mg PO DAILYBB RF: 0 losartan 25 mg tablet 25 mg PO DAILY RF: 0 Referrals Referrals: Royer Jones MD [Primary Care Provider] -
[2021-05-22] MEDS ORDERED: LABETALOL HCL IV 5 MG/ML 20ML IV STA (10:28)
--- NOTE | 2021-05-22 10:52 | Emergency Department Note ---
ED Visit Note This patient was seen in concert with Dr. Srivastava and we discussed and agreed upon the history, physical, assessment and plan. See attending's note for details. Resident Activity Tracking Resident Involvement: Resident Care Provided Care Provided: Adult ED
[2021-05-22 11:00] LABS: Basophils # (auto) 0.02 K/uL (0-0.2); Basophils % (auto) 0.3 %; Eosinophils # (auto) 0.23 K/uL (0-0.5); Eosinophils % (auto) 3.1 %; Hematocrit (blood only) 41.2 % (37-47); Immature Granulocytes # (auto) 0.02 K/uL (0.00-0.02); Immature Granulocytes % (auto) 0.3 %; Lymphocytes # (auto) 2.15 K/uL (1.2-3.4); Lymphocytes % (auto) 28.9 %; Mean Corpuscular Hemoglobin 28.1 pg (25-34); Mean Corpuscular Hgb Conc 31.6 g/dL (32-36); Mean Platelet Volume 9.3 fL (7.4-10.4); Monocytes % (auto) 6.7 %; Neutrophils # (auto) 4.51 K/uL (1.4-6.5); Neutrophils % (auto) 60.7 %; Platelet Count 218 K/uL (130-400); RDW Standard Deviation 45.8 fL (36.4-46.3); Red Blood Count 4.63 M/uL (4.2-5.4); White Blood Count 7.43 K/uL (4.8-10.8)
[2021-05-22] MEDS ORDERED: LOSARTAN POTASSIUM 25 MG TAB PO STA (11:07)
[2021-05-22 11:20] LABS: Appearance Urine Clear (Clear); Bacteria Urine Automated Negative (Negative); Bilirubin Urine Negative (Negative); Blood Urine Negative (Negative); Color Urine Yellow; Epithelial Cell Urine Auto >30 /lpf (0-5); Glucose Urine UA Negative (Negative); Ketones Urine Negative (Negative); Leukocyte Esterase Urine Negative (Negative); Nitrite Urine Negative (Negative); RBC Urine Automated 0-4 /hpf (0-4); Specific Gravity Urine 1.016 (1.000-1.030); Urobilinogen Urine Negative (Negative); pH Urine 7.5 (4.5-7.5)
[2021-05-22 11:32] LABS: Albumin Level 3.4 gm/dl (3.4-5.0); Calcium 9.1 mg/dl (8.5-10.1); Est GFR (African American) 81.1 ml/min; Potassium 3.3 mmol/L (3.5-5.1)
[2021-05-22] MEDS ORDERED: POTASSIUM CHLORIDE CRTAB 20 MEQ TABCR PO STA (11:33)
[2021-05-22 11:34] LABS: Albumin Globulin Ratio 0.8 (0.9-2); Bilirubin,Total 0.2 mg/dl (0.2-1); Globulin 4.4 gm/dl (2.5-4.0); Total Protein 7.8 gm/dl (6.4-8.2)
--- NOTE | 2021-05-22 11:35 | CT Scan Report ---
CT head/brain wo con CLINICAL HISTORY: hx of left MCA stroke, new onest headache and AMS COMPARISON STUDY: 05/07/2021 CT DOSE: 537.48 mGy.cm TECHNIQUE: Standard CT of the Brain was performed without IV contrast. A dose lowering technique was utilized adhering to the principles of ALARA. FINDINGS: Extraaxial space: There is no evidence for subdural hematoma. There are no extra-axial fluid collecti ons. Ventricles and cisterns: The ventricles are normal in size and configuration. There is no evidence f or midline shift or mass effect. Parenchyma: There is no subarachnoid or intraparenchymal hemorrhage. There is no evidence for an acu te infarct or cerebral edema. A large area of encephalomalacia is again identified within the left te mporal parietal lobe in the distribution of the middle cerebral artery. There is homogeneous attenuat ion of the brain parenchyma. There are no gross mass lesions. Osseous structures: There is no evidence for an acute fracture. There is again a fluid level present within the left maxillary antrum. The remaining visualized paranasal sinuses are clear. The mastoid a ir cells are clear bilaterally. Soft tissues: There is no evidence for focal soft tissue swelling. IMPRESSION: No acute intracerebral pathology. There is again evidence for encephalomalacia involving the distribution of the left middle cerebral artery from old left MCA infarct. Acute left maxillary s inusitis is present. ACT 112: Negative or not required by law. Electronically signed by: Terrance Dempsey M.D. 05/22/2021 11:34 AM
[2021-05-22 11:38] LABS: Protein Urine 2+ (Negative)
--- NOTE | 2021-05-22 12:40 | History & Physical Report ---
Date of Service May 22, 2021 Assessment & Plan (1) Headache: Plan: Patient is 76 y/o F with PMH left MCA CVA with hemiplegia, DM II, HTN, HLD, CKD III, hypothyroidism presented to ER with c/o intermittent JAMISON x 1 week, and intermittent confusion. Blurry vision x 1-2 months. In ER patient afebrile, P: 85, BP: 203/115, 97% on room air. No leukocytosis, K: 3.3, ESR: 48 CT head acute left maxillary sinusitis, no other acute findings. No signs of acute CVA on CT head. Patient without tenderness over temporal region, less likely temporal arteritis. JAMISON may be related to hypertension, sinusitis Treat blood pressure as below Reports of increased confusion and hallucinations at night. Sounds consistent with delirium MRI brain Monitor for delirium while in hospital May need to consider neurology consult PT/OT eval CBC, BMP in a.m. SINUSITIS Pt denies fever/chills, rhinorrhea, cough, facial tenderness CT Head: Acute left maxillary sinusitis Start Augmentin (2) HTN (hypertension): Plan: Initially hypertensive in ER with BP 203/115. Given labetalol 10mg IV, losartan 25mg po with BP down to 158/80 Pt did not have am meds Increase losartan to 50mg daily Labetalol prn HTN Monitor BP (3) Hypokalemia: Plan: K: 3.3 In ER given 40meq KCl po Magnesium level pending Monitor and replace (4) Diabetes mellitus, type II: Plan: A1c: 5.6 in 11/12/2020 Hold home meds NovoLog sliding scale per protocol A1c in a.m. (5) CKD (chronic kidney disease), stage III: Plan: Cr: 0.8 Monitor renal functions, avoid nephrotoxic agents when possible (6) Seizure disorder: Plan: Denies recent seizure Dilantin level pending Continue Dilantin (7) Hypothyroid: Plan: TSH pending Continue levothyroxine DVT Prophylaxis -Lovenox SQ Full Code as per discussion with pt Follows with Dr Jones for routine care Pt was seen and care coordinated with Dr Chaidez. See addendum History of Present Illness Chief Complaint: JAMISON Primary Care Provider: Royer Jones MD Patient is 76 y/o F with PMH left MCA CVA with hemiplegia, DM II, HTN, HLD, CKD III, hypothyroidism presented to ER with c/o JAMISON, confusion. Patient reports past week has been having intermittent headache located mid forehead. She reports its dull aching and usually lasts approximately 30 minutes and self resolves. Patient states she has has slight headache currently. Patient also reports has been having some intermittent confusion. She does not feel she is confused currently. Patient also reports blurry vision, seems more prevalent with light and improves with darkness for the past 1 to 2 months. She reports has appointment with eye doctor however is not for several months. Patient has been using wheelchair and reports does not ambulate. ER doctor reported that family voiced concern that patient is having hallucinations at nighttime. Patient reports lives with her son and several other people live in the household. Attempted to contact patient's son Keith, however no answer and voicemail box is not set up. Attempted to contact Bela Lemon, primary contact and no answer. Denies fever/chills, diaphoresis, N/V/D/C, facial discomfort, temporal discomfort, dizziness, syncope, vision changes, neck pain, CP, SOB, orthopnea, palpitations, cough, sore throat, choking, otalgia, rhinorrhea, abdominal pain, paresthesias, weakness, extremity weakness, extremity edema, rashes, urinary symptoms. In ER patient afebrile, P: 85, BP: 203/115, 97% on room air. No leukocytosis, K: 3.3, ESR: 48, CT head acute left maxillary sinusitis, no other acute findings. In ER was given labetalol 10 mg IV, losartan 25 mg p.o. with BP down to 158/80. Allergies Allergy/AdvReac Type Severity Reaction Status Date / Time No Known Allergies Allergy Unknown Verified 12/15/19 11:45 Home Medications Medication Instructions Recorded Confirmed Type metformin 500 mg tablet,extended 500 mg PO BID 04/15/19 05/22/21 History release 24 hr rosuvastatin 40 mg tablet 40 mg PO HS 04/15/19 05/22/21 History aspirin 81 mg chewable tablet 81 mg PO DAILY 12/15/19 05/22/21 History cholecalciferol (vitamin D3) 125 125 mcg PO DAILY 12/15/19 05/22/21 History mcg (5,000 unit) tablet (Vitamin D3) levothyroxine 75 mcg tablet 50 mcg PO DAILYBB #0 tab 12/21/19 05/22/21 Rx losartan 25 mg tablet 25 mg PO DAILY 05/07/21 05/22/21 History pantoprazole 40 mg tablet,delayed 40 mg PO DAILYBB 05/07/21 05/22/21 History release phenytoin sodium extended 100 mg 200 mg PO BID 05/07/21 05/22/21 History capsule Past Med/Surg History Medical History (Updated 05/22/21 @ 13:37 by Lexii Perla PA-C) Anemia Carotid artery stenosis CKD (chronic kidney disease), stage III Depression Diabetes mellitus Diabetes mellitus, type II Diabetic nephropathy History of CVA (cerebrovascular accident) hx L MCA CVA with RHP 2001 HTN (hypertension) Hyperlipidemia Hypothyroid Obesity Overactive bladder Seizure disorder s/p CVA TIA (transient ischemic attack) Surgical History History of appendectomy Family History Father Cancer Brother Myocardial infarction Social History Smoking Status: Never smoker Hx Alcohol Use: No Hx Substance Use: No Preferred Language: Yakut Communication Ability: Effective Beliefs That Will Affect Care: None Current Living Situation: Family Feels Safe at Home: Yes Assistive Devices: None Review of Systems Review of Systems: All systems reviewed & are unremarkable except as noted in HPI & below Physical Exam Physical Exam: General: no distress, WDWN Head: normocephalic, atraumatic Eyes: PERRL, EOM's intact, conjunctiva non-injected, anicteric ENT: normal inspection external ears, nose, mucous membranes moist, no temporal tenderness to palpation, no maxillary sinus tenderness to palpation Neck: supple, trachea midline Lungs: clear, no respiratory distress, no wheezing/rhonchi/rales CV: RRR, no murmur, no pretibial edema Abd: normal BS, soft, non-tender Ext: no cyanosis, no calf tenderness Neuro: Alert, oriented x 3, +slow responses with slurred speech, +right extremity weakness and contracture of right hand/fingers (chronic), no other focal deficits noted, normal affect Skin: warm, dry Results & Data Results & Data ([facility]) Vital Signs (Past 12 Hours) Vital Signs Temp Pulse Pulse Resp BP BP Pulse Ox 05/22/21 12:00 66 18 158/80 H 95 05/22/21 10:50 69 17 97 05/22/21 10:44 72 18 157/100 H 95 05/22/21 10:40 75 24 98 05/22/21 10:30 82 24 96 05/22/21 10:20 86 21 05/22/21 10:13 37.0 C 85 26 H 203/115 H 97 Laboratory Results Short CBC 05/22/21 Range/Units 10:45 WBC 7.43 (4.8-10.8) K/uL Hgb 13.0 (12.0-16.0) g/dL Hct 41.2 (37-47) % Plt Count 218 (130-400) K/uL BMP 05/22/21 10:45 Sodium 139 Potassium 3.3 L Chloride 103 Carbon Dioxide 29 BUN 12 Creatinine 0.82 Glucose 144 H Calcium 9.1 Liver Function 05/22/21 Range/Units 10:45 Total Bilirubin 0.2 (0.2-1) mg/dl AST 26 (15-37) U/L ALT 35 (12-78) Alkaline Phosphatase 93 (45-117) U/L Albumin 3.4 (3.4-5.0) gm/dl Urine 05/22/21 Range/Units Unknown Urine Color Yellow Urine Appearance Clear (Clear) Urine pH 7.5 (4.5-7.5) Ur Specific [place] 1.016 (1.000-1.030) Urine Protein 2+ H (Negative) Urine Glucose (UA) Negative (Negative) Diagnostic Findings Head CT 05/22/21 10:28 CT head/brain wo con CLINICAL HISTORY: hx of left MCA stroke, new onest headache and AMS COMPARISON STUDY: 05/07/2021 CT DOSE: 537.48 mGy.cm TECHNIQUE: Standard CT of the Brain was performed without IV contrast. A dose lowering technique was utilized adhering to the principles of ALARA. FINDINGS: Extraaxial space: There is no evidence for subdural hematoma. There are no extra-axial fluid collections. Ventricles and cisterns: The ventricles are normal in size and configuration. There is no evidence for midline shift or mass effect. Parenchyma: There is no subarachnoid or intraparenchymal hemorrhage. There is no evidence for an acute infarct or cerebral edema. A large area of encephalomalacia is again identified within the left temporal parietal lobe in the distribution of the middle cerebral artery. There is homogeneous attenuation of the brain parenchyma. There are no gross mass lesions. Osseous structures: There is no evidence for an acute fracture. There is again a fluid level present within the left maxillary antrum. The remaining visualized paranasal sinuses are clear. The mastoid air cells are clear bilaterally. Soft tissues: There is no evidence for focal soft tissue swelling. IMPRESSION: No acute intracerebral pathology. There is again evidence for encephalomalacia involving the distribution of the left middle cerebral artery from old left MCA infarct. Acute left maxillary sinusitis is present. ACT 112: Negative or not required by law. Electronically signed by: Terrance Dempsey M.D. 05/22/2021 11:34 AM Supervising Physician Co-Signing Physician Notes Patient is a 76-year-old female with history of left MCA CVA with right hemiplegia, diabetes mellitus, CKD, hypertension and other medical problems presents with history of headache, intermittent confusion. Currently while in ED she is oriented. No family at bedside. She complains of frontal headache associated with intermittent blurry vision especially in bright light. She denies any photophobia. Also denies any jaw claudication, fever, facial pain or tenderness. She also denies any chest pain, shortness of breath, new focal weakness. As per ER physician, family reported that patient has been having hallucinations at nighttime. Please review HPI for complete details of presentation. She was noted to be in hypertensive urgency while in ED. Blood work suggestive of hypokalemia 3.3, ESR elevated at 48. CT head showed no acute intracranial pathology. Findings suggestive of encephalomalacia involving the distribution of left MCA from old left MCA infarct, acute left maxillary sinusitis. No leukocytosis noted. Phenytoin levels currently pending. She denies any recent seizure activity. On exam patient is moderately built and nourished, no apparent distress, normocephalic atraumatic, EOMI neck, lungs are clear to auscultation, normal breath sounds, S1-S2, no murmur, no pedal edema, abdomen soft, nontender, normal bowel sounds, alert, awake, oriented,+ slurred speech (unchanged from prior CVA as per patient), right upper extremity paresis,+ right hand contracture (chronic), right lower extremity minimal weakness noted. Hypertensive urgency. Will increase losartan. iv labetalol as needed. MRI brain. Further adjustment of medications for hypertension as needed. We will follow up on phenytoin levels. Start on Augmentin for sinusitis. Consider neurology evaluation if needed. Less likely temporal arter itis given no history of fever, jaw claudication, abrupt onset of visual disturbance. Will replace electrolytes. Monitor for delirium. Avoid any sedative medications. Update HbA1c. Fall precautions. Follow-up on TSH. Further management based on the results. I personally reviewed the record. Patient is interviewed and examined at bedside. Patient's care is coordinated with Lexii Perla PA-C. Please refer to the documentation above for details of patient's presentation and for discussion of other issues.
[2021-05-22] MEDS ORDERED: LABETALOL HCL IV 5 MG/ML 20ML IV PRN (13:22)
[2021-05-22] MEDS ORDERED: LOSARTAN POTASSIUM 25 MG TAB PO ONE (13:45)
--- NOTE | 2021-05-22 15:33 | Magnetic Resonance Report ---
MR brain wo con HISTORY: 76 years-old Female JAMISON, confusion acute headache fusion. History of prior seizure and strok e. COMPARISON: Head CT of same day TECHNIQUE: Multiplanar multisequence MRI of the brain was obtained without the use of IV contrast. FINDINGS: Motion degraded exam. There is no restricted diffusion to suggest acute or subacute infarct. The midl ine structures appear unremarkable. There is no acute intracranial hemorrhage, midline shift, abnorma l extra-axial collection, hydrocephalus or intracranial mass. Age-related involutional changes with m ild to moderate T2/FLAIR hyperintense foci throughout the white matter. Large chronic infarct with en cephalomalacia and gliosis of the left MCA territory. Mesial temporal lobes appear unremarkable bilat erally. No evidence of mesial temporal sclerosis. The cerebral venous sinuses and major arterial flow voids appear patent. Small left mastoid effusion. Small air-fluid levels are noted within the right sphenoid and left maxillary sinuses. Skull, orbits and soft tissues are unremarkable. IMPRESSION: 1. No acute intracranial abnormality. No acute subacute infarct. 2. Age-related involutional changes with mild to moderate chronic microvascular ischemic disease. 3. Chronic left MCA territory infarct. 4. Mild acute sinus disease. ACT 112: Negative or not required by law. The above report was generated using voice recognition software. It may contain grammatical, syntax o r spelling errors. Electronically signed by: Madi Gardner M.D. 05/22/2021 3:32 PM
--- NOTE | 2021-05-22 16:06 | Communication Note ---
Date of Service: May 22, 2021 attempted to see patient but she was out of room for MRI. Full consult to follow within 24 hours. The patient is a 76 yo female with a history of stroke on Dilantin for focal motor seizure hx. Current level 26.4 of phenytoin, unclear if true trough. Presented to ED for 10 day history of JAMISON and AMS at times. mildly elevated sed rate. Son and daughter in law assist her and report poor sleep and fear for her safety as she's been responding to hallucinations and paranoia that her son is being hurt or tortured. Symptoms are worse at night and cause her distress (cries, restless). Her BP was elevated in ED. At baseline she isn't particularly mobile (bed/chair bound). Likely sundowning with progressive cognitive decline post stroke but certainly could be related to complex partial or other subclinical seizure activity. Antipsychotics can theoretically lower seizure threshhold. Avoid benzos and anticholinergics. Hospitalist can weigh risks/benefits of atypical for this patient to assist with maintaining in home with dilantin prescriber after MRI, etc. Low dose Seroquel 12.5 mg qhs would be preferrable over Zyprexa given metabolic profile.
[2021-05-22] MEDS ORDERED: CARBOHYDRATES FOR HYPOGLYCEMIA PO PRN (20:19)
[2021-05-22] MEDS ORDERED: MAGNESIUM HYDROXIDE SUSP 30 ML UDC PO PRN (20:19)
[2021-05-22] MEDS ORDERED: ACETAMINOPHEN 325 MG TAB PO PRN (20:19)
[2021-05-22] MEDS ORDERED: GLUCAGON FOR INJ 1 MG VIAL SQ PRN (20:19)
[2021-05-22] MEDS ORDERED: GLUCOSE 10 TABS/TUBE PO PRN (20:19)
[2021-05-22] MEDS ORDERED: DEXTROSE 50% 50 ML SYRINGE IV PRN (20:19)
[2021-05-22] MEDS ORDERED: GLUCOSE 40% GEL 15 GM TUBE PO PRN (20:19)
[2021-05-22] MEDS ORDERED: PHENYTOIN SODIUM ER 100 MG CAP PO SCH ×2 (21:00)
[2021-05-22 21:14] LABS: Magnesium 1.6 mg/dl (1.8-2.4); Thyroid Stimulating Hormone 2.35 uIu/ml (0.300-4.500)
[2021-05-22] MEDS: ENOXAPARIN INJ 40 MG/0.4 ML SYR SQ SCH (21:20)
[2021-05-22] MEDS: AMOXICILLIN/CLAVULANATE 875 MG TAB PO SCH (21:20)
[2021-05-22] MEDS: ASPIRIN 81 MG ECTAB PO SCH (21:20)
[2021-05-22] MEDS: PHENYTOIN SODIUM ER 100 MG CAP PO SCH (21:21)
[2021-05-22] MEDS: ROSUVASTATIN CALCIUM 20 MG TAB PO SCH (21:21)
[2021-05-22] MEDS: INSULIN ASPART PER UNIT SC SCH (21:37)
[2021-05-23 06:26] LABS: Hematocrit (blood only) 37.4 % (37-47); Hemoglobin 11.6 g/dL (12.0-16.0); Mean Corpuscular Hemoglobin 28.2 pg (25-34); Mean Corpuscular Volume 90.8 fL (80-100); Mean Platelet Volume 9.5 fL (7.4-10.4); Platelet Count 185 K/uL (130-400); RDW Coefficient of Variation 14.3 % (11.5-14.5); RDW Standard Deviation 47.6 fL (36.4-46.3); Red Blood Count 4.12 M/uL (4.2-5.4); White Blood Count 8.33 K/uL (4.8-10.8)
[2021-05-23] MEDS: PANTOprazole 40 MG TAB PO SCH (06:33)
[2021-05-23] MEDS: LEVOTHYROXINE SODIUM 50 MCG TABLET PO SCH (06:33)
[2021-05-23 07:26] LABS: BUN Creatinine Ratio 18.6 (10-20); Calcium 8.8 mg/dl (8.5-10.1); Creatinine Clr Calc Pharmacy 49.9 ml/min; Est GFR (African American) 74.5 ml/min; Est GFR (Non-African American) 64.3 ml/min; Potassium 3.8 mmol/L (3.5-5.1)
[2021-05-23 07:38] LABS: Estimated Average Glucose 131 mg/dl; Hemoglobin A1C 6.2 % (4.5-5.6)
[2021-05-23 07:40] LABS: C Reactive Protein 0.72 mg/dl (0-0.29); Thyroid Stimulating Hormone 2.84 uIu/ml (0.300-4.500)
[2021-05-23] MEDS: LOSARTAN POTASSIUM 50 MG TAB PO SCH (09:04)
[2021-05-23] MEDS: AMOXICILLIN/CLAVULANATE 875 MG TAB PO SCH ×2 (09:04→17:43)
[2021-05-23] MEDS: ASPIRIN 81 MG ECTAB PO SCH (09:05)
[2021-05-23] MEDS: CHOLECALCIFEROL 5,000 UNITS 125 MCG TAB PO SCH (09:05)
[2021-05-23] MEDS: INSULIN ASPART PER UNIT SC SCH ×4 (09:14→21:24)
--- NOTE | 2021-05-23 12:08 | Psychiatric Consultation ---
Date of Consultation May 23, 2021 Impression / Recommendations Impression Hallucinations are typically not a presentation of Dilantin toxicity but could certainly contribute to confusion and misperception of visual and auditory stimuli with resulting paranoia though since Dilantin level less than 28 and worse in pm suspect sundowning associated with progressive cognitive decline post stroke but cannot exclude complex partial or other subclinical seizure activity. (1) Altered mental status: 05/23/21: She does not appear to be hallucinating in the hospital and her paranoia with regards to home is not causing agitation or interfering with her care. She is agreeable to appropriate level of rehab or nursing services and she is psychiatrically stable for those settings. I defer dosing of Dilantin to hospitalist and/or neuro as monitor mental status. Psych History Identifying Data Analia is a 76-year-old female with a history of CVA and seizure disorder with longstanding rx of Dilantin. Consult is by hospitalist service for hallucinations. Chief Complaint "They are probably trying to get rid of me". History of Present Illness Patient with intermittent confusion, tells me she was admitted as her family "wants me out of the house" and a nurse because she saw a raccoon. She initially presented to the ED for complaint of 10 days of headache. Her son assists with her medication and reported to ED that her sleep has been poor and she seems to get more paranoid at night. She has been crying more as she reports her son is being hurt or tortured. The patient denies depression and states that at home "I don't get lonely as I watch [employer] movies and game show network". She admits that she is up at night as she believes that her son's girlfriend is trying to get them to move out and believes that another family member in the upper level of the home is talking about them. She is likely hearing others in the home and may be misattributing the noise but they also feel that she truly hallucinates. She states that she lives in the living room and has a chair/bed with a curtain she can pull for privacy. She doesn't believe that her son and his girlfriend are going to get and feels that the girlfriend and her family are "messing with them" to make them leave. She states that here in the hospital she sleeps fine as "I'm away from all that". Nursing reports that family would like her to go to rehab services. She is willing to do so but adds that her only reservation is that she doesn't think "they'll take me back" as she has overheard them talking about placement. She feels that she hasn't been as steady and perhaps been more confused, "but what I'm telling you is true" and I let her know that her Dilantin level is high. Past Psychiatric History Previous Psych History: no formal Allergies Allergy/AdvReac Type Severity Reaction Status Date / Time No Known Allergies Allergy Unknown Verified 12/15/19 11:45 Home Medications Medication Instructions Recorded Confirmed Type metformin 500 mg tablet,extended 1,000 mg PO DAILY 04/15/19 05/22/21 History release 24 hr rosuvastatin 40 mg tablet 40 mg PO HS 04/15/19 05/22/21 History aspirin 81 mg chewable tablet 81 mg PO DAILY 12/15/19 05/22/21 History cholecalciferol (vitamin D3) 125 125 mcg PO DAILY 12/15/19 05/22/21 History mcg (5,000 unit) tablet (Vitamin D3) levothyroxine 75 mcg tablet 50 mcg PO DAILYBB #0 tab 12/21/19 05/22/21 Rx losartan 25 mg tablet 25 mg PO DAILY 05/07/21 05/22/21 History pantoprazole 40 mg tablet,delayed 40 mg PO DAILYBB 05/07/21 05/22/21 History release phenytoin sodium extended 100 mg 200 mg PO BID 05/07/21 05/22/21 History capsule Personal History Beliefs That Will Affect Care: None Patient History Medical History Anemia Carotid artery stenosis CKD (chronic kidney disease), stage III Depression Diabetes mellitus Diabetes mellitus, type II Diabetic nephropathy History of CVA (cerebrovascular accident) hx L MCA CVA with RHP 2001 HTN (hypertension) Hyperlipidemia Hypothyroid Obesity Overactive bladder Seizure disorder s/p CVA TIA (transient ischemic attack) Surgical History History of appendectomy Family History Father Cancer Brother Myocardial infarction Social History Smoking Status: Never smoker Hx Alcohol Use: No Hx Substance Use: No Preferred Language: Malawian Communication Ability: Effective Lath Tier Required: No Beliefs That Will Affect Care: None Current Living Situation: Family Other Information That Helps Us Care for You: No Feels Safe at Home: Yes Safety Concerns: Feels Safe At This Time Assistive Devices: Mechanical Lift Assistive Devices Comment: States is a lift into a wc, wcbound Physical Exam Psychiatric: Orientation: alert and oriented x 3 Apperance: appropriately groomed Eye Contact: good eye contact Motor Behavior: no abnormal motor movements Speech: + abnormal rate/rhythm/volume of speech (slow, articulation difficulties secondary to stroke) Affect: + blunted affect (but partial facial paralysis) Mood: + anxious mood; no depressed mood Thought Process: + concrete thought process Thought Content: + paranoid (toward family, mild) Suicidal Thoughts: denies suicidal thoughts Homicidal Thoughts: denies homicidal thoughts Hallucinations: no auditory hallucinations and no visual hallucinations Cognition: attention grossly intact and language grossly intact Estimated Intelligence: consistent with education level Insight: + limited insight Judgement: + limited judgement Vital Signs (Past 24 Hours): Last Vital Signs Temp 36.6 C 05/23/21 11:18 Pulse 67 05/23/21 11:18 Resp 18 05/23/21 11:18 BP 127/76 05/23/21 11:18 Pulse Ox 97 05/23/21 11:18 Review of Systems All systems reviewed & are unremarkable except as noted in HPI & below Results & Data (PSY) Laboratory Results 05/23/21 05/23/21 05/23/21 Range/Units 11:32 07:34 05:48 WBC (4.8-10.8) K/uL RBC (4.2-5.4) M/uL Hgb (12.0-16.0) g/dL Hct (37-47) % MCV (80-100) fL MCH (25-34) pg MCHC (32-36) g/dL RDW Std Deviation (36.4-46.3) fL RDW Coeff of Maurice (11.5-14.5) % Plt Count (130-400) K/uL MPV (7.4-10.4) fL Sodium (136-145) mmol/L Potassium (3.5-5.1) mmol/L Chloride (98-107) mmol/L Carbon Dioxide (21-32) mmol/L Anion Gap (3-11) BUN (7-18) mg/dl Creatinine (0.6-1.2) mg/dl Est Cr Clr Drug Dosing ml/min Est GFR ( Amer) ml/min Est GFR (Non-Af Amer) ml/min BUN/Creatinine Ratio (10-20) Glucose (70-99) mg/dl POC Glucose 138 H 120 H (70-99) mg/dl Estimat Average Glucose 131 mg/dl Hemoglobin A1c 6.2 H (4.5-5.6) % Calcium (8.5-10.1) mg/dl Magnesium (1.8-2.4) mg/dl C-Reactive Protein (0-0.29) mg/dl TSH (0.300-4.500) uIu/ml Phenytoin (10-20) mcg/ml SARS-CoV-2, RNA, NAAT (NEGATIVE) 05/23/21 05/23/21 05/23/21 Range/Units 05:48 05:48 05:48 WBC 8.33 (4.8-10.8) K/uL RBC 4.12 L (4.2-5.4) M/uL Hgb 11.6 L (12.0-16.0) g/dL Hct 37.4 (37-47) % MCV 90.8 (80-100) fL MCH 28.2 (25-34) pg MCHC 31.0 L (32-36) g/dL RDW Std Deviation 47.6 H (36.4-46.3) fL RDW Coeff of Maurice 14.3 (11.5-14.5) % Plt Count 185 (130-400) K/uL MPV 9.5 (7.4-10.4) fL Sodium 140 (136-145) mmol/L Potassium 3.8 D (3.5-5.1) mmol/L Chloride 107 (98-107) mmol/L Carbon Dioxide 25 (21-32) mmol/L Anion Gap 8.0 (3-11) BUN 16 (7-18) mg/dl Creatinine 0.88 (0.6-1.2) mg/dl Est Cr Clr Drug Dosing 49.9 ml/min Est GFR ( Amer) 74.5 ml/min Est GFR (Non-Af Amer) 64.3 ml/min BUN/Creatinine Ratio 18.6 (10-20) Glucose 110 H (70-99) mg/dl POC Glucose (70-99) mg/dl Estimat Average Glucose mg/dl Hemoglobin A1c (4.5-5.6) % Calcium 8.8 (8.5-10.1) mg/dl Magnesium 2.0 (1.8-2.4) mg/dl C-Reactive Protein 0.72 H (0-0.29) mg/dl TSH 2.840 (0.300-4.500) uIu/ml Phenytoin 25.2 H* (10-20) mcg/ml SARS-CoV-2, RNA, NAAT (NEGATIVE) 05/22/21 05/22/21 05/22/21 Range/Units Unknown 21:28 14:01 WBC (4.8-10.8) K/uL RBC (4.2-5.4) M/uL Hgb (12.0-16.0) g/dL Hct (37-47) % MCV (80-100) fL MCH (25-34) pg MCHC (32-36) g/dL RDW Std Deviation (36.4-46.3) fL RDW Coeff of Maurice (11.5-14.5) % Plt Count (130-400) K/uL MPV (7.4-10.4) fL Sodium (136-145) mmol/L Potassium (3.5-5.1) mmol/L Chloride (98-107) mmol/L Carbon Dioxide (21-32) mmol/L Anion Gap (3-11) BUN (7-18) mg/dl Creatinine (0.6-1.2) mg/dl Est Cr Clr Drug Dosing ml/min Est GFR ( Amer) ml/min Est GFR (Non-Af Amer) ml/min BUN/Creatinine Ratio (10-20) Glucose (70-99) mg/dl POC Glucose 125 H (70-99) mg/dl Estimat Average Glucose mg/dl Hemoglobin A1c (4.5-5.6) % Calcium (8.5-10.1) mg/dl Magnesium (1.8-2.4) mg/dl C-Reactive Protein (0-0.29) mg/dl TSH (0.300-4.500) uIu/ml Phenytoin 26.4 H* (10-20) mcg/ml SARS-CoV-2, RNA, NAAT NEGATIVE (NEGATIVE) 05/22/21 Range/Units 10:45 WBC (4.8-10.8) K/uL RBC (4.2-5.4) M/uL Hgb (12.0-16.0) g/dL Hct (37-47) % MCV (80-100) fL MCH (25-34) pg MCHC (32-36) g/dL RDW Std Deviation (36.4-46.3) fL RDW Coeff of Maurice (11.5-14.5) % Plt Count (130-400) K/uL MPV (7.4-10.4) fL Sodium (136-145) mmol/L Potassium (3.5-5.1) mmol/L Chloride (98-107) mmol/L Carbon Dioxide (21-32) mmol/L Anion Gap (3-11) BUN (7-18) mg/dl Creatinine (0.6-1.2) mg/dl Est Cr Clr Drug Dosing ml/min Est GFR ( Amer) ml/min Est GFR (Non-Af Amer) ml/min BUN/Creatinine Ratio (10-20) Glucose (70-99) mg/dl POC Glucose (70-99) mg/dl Estimat Average Glucose mg/dl Hemoglobin A1c (4.5-5.6) % Calcium (8.5-10.1) mg/dl Magnesium 1.6 L (1.8-2.4) mg/dl C-Reactive Protein (0-0.29) mg/dl TSH 2.350 (0.300-4.500) uIu/ml Phenytoin (10-20) mcg/ml SARS-CoV-2, RNA, NAAT (NEGATIVE) Diagnostic Findings Brain MRI 05/22/21 13:22 MR brain wo con HISTORY: 76 years-old Female JAMISON, confusion acute headache fusion. History of prior seizure and stroke. COMPARISON: Head CT of same day TECHNIQUE: Multiplanar multisequence MRI of the brain was obtained without the use of IV contrast. FINDINGS: Motion degraded exam. There is no restricted diffusion to suggest acute or subacute infarct. The midline structures appear unremarkable. There is no acute intracranial hemorrhage, midline shift, abnormal extra-axial collection, hydrocephalus or intracranial mass. Age-related involutional changes with mild to moderate T2/FLAIR hyperintense foci throughout the white matter. Large chronic infarct with encephalomalacia and gliosis of the left MCA territory. Mesial temporal lobes appear unremarkable bilaterally. No evidence of mesial temporal sclerosis. The cerebral venous sinuses and major arterial flow voids appear patent. Small left mastoid effusion. Small air-fluid levels are noted within the right sphenoid and left maxillary sinuses. Skull, orbits and soft tissues are unremarkable. IMPRESSION: 1. No acute intracranial abnormality. No acute subacute infarct. 2. Age-related involutional changes with mild to moderate chronic microvascular ischemic disease. 3. Chronic left MCA territory infarct. 4. Mild acute sinus disease. ACT 112: Negative or not required by law. The above report was generated using voice recognition software. It may contain grammatical, syntax or spelling errors. Electronically signed by: Madi Gardner M.D. 05/22/2021 3:32 PM Medications Administered Amoxicillin/Clavulanate Potassium (Amoxicillin/Clavulanate 875 Mg Tab) 1 tab PO BIDM [facility]; Protocol Stop: 06/01/21 20:59 Last Admin: 05/23/21 09:04 Dose: 1 tab Documented by: [id number] Admin: 05/22/21 21:20 Dose: 1 tab Documented by: [id number] Aspirin (Aspirin 81 Mg Ectab) 81 mg PO DAILY [facility] Stop: 06/21/21 20:59 Last Admin: 05/23/21 09:05 Dose: 81 mg Documented by: [id number] Admin: 05/22/21 21:20 Dose: 81 mg Documented by: [id number] Enoxaparin Sodium (Enoxaparin Inj 40 Mg/0.4 Ml Syr) 40 mg SQ Q24H [facility] Stop: 06/21/21 20:59 Last Admin: 05/22/21 21:20 Dose: 40 mg Documented by: [id number] Insulin Aspart (Insulin Aspart Per Unit) 0 units SC ACHS [facility] Stop: 06/21/21 20:59 Last Admin: 05/23/21 09:14 Dose: 5 units Documented by: [id number] Cosigned by: [id number] Admin: 05/22/21 21:37 Dose: 3 units Documented by: [id number] Cosigned by: [id number] Labetalol HCl (Labetalol Hcl Iv 5 Mg/Ml 20ml) 10 mg IV Q6H PRN PRN Reason: Hypertension Stop: 06/21/21 13:21 Last Admin: 05/22/21 21:37 Dose: 10 mg Documented by: [id number] Cosigned by: [id number] Levothyroxine Sodium (Levothyroxine Sodium 50 Mcg Tablet) 50 mcg PO DAILYBB [facility] Stop: 06/22/21 06:29 Last Admin: 05/23/21 06:33 Dose: 50 mcg Documented by: [id number] Losartan Potassium (Losartan Potassium 50 Mg Tab) 50 mg PO QAM [facility] Stop: 06/22/21 08:59 Last Admin: 05/23/21 09:04 Dose: 50 mg Documented by: [id number] Pantoprazole Sodium (Pantoprazole 40 Mg Tab) 40 mg PO DAILYBB [facility] Stop: 06/22/21 06:29 Last Admin: 05/23/21 06:33 Dose: 40 mg Documented by: [id number] Phenytoin Sodium (Phenytoin Sodium Er 100 Mg Cap) 200 mg PO BID [facility] Stop: 06/21/21 20:59 Last Admin: 05/22/21 21:21 Dose: 200 mg Documented by: [id number] Rosuvastatin Calcium (Rosuvastatin Calcium 20 Mg Tab) 40 mg PO HS [facility] Stop: 06/21/21 20:59 Last Admin: 05/22/21 21:21 Dose: 40 mg Documented by: [id number] Vitamin D (Cholecalciferol 5,000 Units 125 Mcg Tab) 5,000 units PO DAILY [facility] Stop: 06/22/21 08:59 Last Admin: 05/23/21 09:05 Dose: 5,000 units Documented by: [id number] Coding Level of Care Code 93824 Inpt Consult Level 3 Diagnoses Altered mental status R41.82
--- NOTE | 2021-05-23 16:47 | Hospitalist Progress Note ---
Date of Service May 23, 2021 Assessment & Plan (1) Headache: Plan: Patient is 76 y/o F with PMH left MCA CVA with hemiplegia, DM II, HTN, HLD, CKD III, hypothyroidism presented to ER with c/o intermittent JAMISON x 1 week, and intermittent confusion. Blurry vision x 1-2 months. In ER patient afebrile, P: 85, BP: 203/115, 97% on room air. No leukocytosis, K: 3.3, ESR: 48 CT head acute left maxillary sinusitis, no other acute findings. No signs of acute CVA on CT head. Patient without tenderness over temporal region, less likely temporal arteritis. JAMISON may be related to hypertension, sinusitis MRI of the head showed age-related involutional changes with mild to moderate chronic microvascular ischemic disease and old left MCA territory infarct Has persistent right hemiparesis Change in mental status Reports of increased confusion and hallucinations at night. Sounds consistent with delirium Dilantin level is mildly elevated at 26 and the repeat level did not show any improvement Dilantin is on hold for now and will check level tomorrow If improving will restart SINUSITIS Pt denies fever/chills, rhinorrhea, cough, facial tenderness CT Head: Acute left maxillary sinusitis Start Augmentin (2) HTN (hypertension): Plan: Initially hypertensive in ER with BP 203/115. Given labetalol 10mg IV, losartan 25mg po with BP down to 158/80 Pt did not have am meds Increase losartan to 50mg daily Labetalol prn HTN Monitor BP-remains stable (3) Hypokalemia: Plan: K: 3.3 In ER given 40meq KCl po Magnesium level pending Monitor and replace (4) Diabetes mellitus, type II: Plan: A1c: 5.6 in 11/12/2020 Hold home meds NovoLog sliding scale per protocol A1c in a.m. (5) CKD (chronic kidney disease), stage III: Plan: Cr: 0.8 Monitor renal functions, avoid nephrotoxic agents when possible (6) Seizure disorder: Plan: Denies recent seizure Dilantin level pending Continue Dilantin-on hold for today We will repeat the level tomorrow if not increasing will restart (7) Hypothyroid: Plan: TSH pending Continue levothyroxine-2.84 DVT Prophylaxis -Lovenox SQ Full Code as per discussion with pt Follows with Dr Jones for routine care Admission and Anticipated Discharge Date Admission Date: May 22, 2021 Subjective 05/23/2021 The patient was seen and examined in medical telemetry unit She has been feeling much better since admission and denies any significant symptoms Denies any more hallucinations and/or acute confusion Review of Systems Review of Systems: All systems reviewed and are unremarkable except as noted below Physical Exam Physical Exam: Lying in bed comfortably Constitutional: + ill appearing and average body habitus Eyes: PERRL, conjunctivae normal, anicteric sclerae ENMT: external ear and nose normal, oropharynx normal Neck: trachea midline, no thyromegaly Respiratory: no respiratory distress Auscultation: lungs clear to auscultation bilaterally Cardiovascular: Rate/Rhythm: regular rate and regular rhythm Heart Sounds: normal S1 and normal S2; no murmur Extremities: + edema (Trace edema bilaterally) Neurologic: Alert and awake.Has left MCA territory stroke with right hemiplegia Lymphatic: no cervical or axillary lymphadenopathy Results & Data Results & Data ([facility]) Vital Signs (Past 12 Hours) Vital Signs Temp Pulse Pulse Resp BP Pulse Ox 05/23/21 15:16 36.8 C 74 16 129/78 97 05/23/21 15:09 75 05/23/21 11:18 36.6 C 67 18 127/76 97 05/23/21 07:45 68 05/23/21 07:08 36.6 C 68 18 144/80 H 95 Laboratory Results Short CBC 05/23/21 Range/Units 05:48 WBC 8.33 (4.8-10.8) K/uL Hgb 11.6 L (12.0-16.0) g/dL Hct 37.4 (37-47) % Plt Count 185 (130-400) K/uL BMP 05/23/21 05:48 Sodium 140 Potassium 3.8 D Chloride 107 Carbon Dioxide 25 BUN 16 Creatinine 0.88 Glucose 110 H Calcium 8.8 Medications Administered Current Inpatient Medications Acetaminophen (Acetaminophen 325 Mg Tab) 650 mg PO Q4H PRN PRN Reason: Pain or Fever Stop: 06/21/21 20:18 Amoxicillin/Clavulanate Potassium (Amoxicillin/Clavulanate 875 Mg Tab) 1 tab PO BIDM [facility]; Protocol Stop: 06/01/21 20:59 Last Admin: 05/23/21 09:04 Dose: 1 tab Documented by: Aspirin (Aspirin 81 Mg Ectab) 81 mg PO DAILY [facility] Stop: 06/21/21 20:59 Last Admin: 05/23/21 09:05 Dose: 81 mg Documented by: Dextrose (Dextrose 50% 50 Ml Syringe) 25 - 50 ml IV UD PRN; Protocol PRN Reason: Hypoglycemia Protocol Stop: 06/21/21 20:18 Enoxaparin Sodium (Enoxaparin Inj 40 Mg/0.4 Ml Syr) 40 mg SQ Q24H [facility] Stop: 06/21/21 20:59 Last Admin: 05/22/21 21:20 Dose: 40 mg Documented by: Glucagon (Glucagon For Inj 1 Mg Vial) 1 mg SQ UD PRN; Protocol PRN Reason: Hypoglycemia Protocol Stop: 06/21/21 20:18 Glucose (Glucose 10 Tabs/Tube) 4 - 8 tabs PO UD PRN; Protocol PRN Reason: Hypoglycemia Protocol Stop: 06/21/21 20:18 Glucose (Glucose 40% Gel 15 Gm Tube) 15 - 30 gm PO UD PRN; Protocol PRN Reason: Hypoglycemia Protocol Stop: 06/21/21 20:18 Insulin Aspart (Insulin Aspart Per Unit) 0 units SC ACHS [facility] Stop: 06/21/21 20:59 Last Admin: 05/23/21 12:44 Dose: 4 units Documented by: Labetalol HCl (Labetalol Hcl Iv 5 Mg/Ml 20ml) 10 mg IV Q6H PRN PRN Reason: Hypertension Stop: 06/21/21 13:21 Last Admin: 05/22/21 21:37 Dose: 10 mg Documented by: Levothyroxine Sodium (Levothyroxine Sodium 50 Mcg Tablet) 50 mcg PO DAILYBB [facility] Stop: 06/22/21 06:29 Last Admin: 05/23/21 06:33 Dose: 50 mcg Documented by: Losartan Potassium (Losartan Potassium 50 Mg Tab) 50 mg PO QAM [facility] Stop: 06/22/21 08:59 Last Admin: 05/23/21 09:04 Dose: 50 mg Documented by: Magnesium Hydroxide (Magnesium Hydroxide Susp 30 Ml Udc) 30 ml PO Q12H PRN PRN Reason: Constipation Stop: 06/21/21 20:18 Miscellaneous (Carbohydrates For Hypoglycemia ) 15 - 30 gm PO UD PRN PRN Reason: Hypoglycemia Protocol Stop: 06/21/21 20:18 Pantoprazole Sodium (Pantoprazole 40 Mg Tab) 40 mg PO DAILYBB [facility] Stop: 06/22/21 06:29 Last Admin: 05/23/21 06:33 Dose: 40 mg Documented by: Phenytoin Sodium (Phenytoin Sodium Er 100 Mg Cap) 200 mg PO BID [facility] Stop: 06/21/21 20:59 Last Admin: 05/22/21 21:21 Dose: 200 mg Documented by: Rosuvastatin Calcium (Rosuvastatin Calcium 20 Mg Tab) 40 mg PO HS [facility] Stop: 06/21/21 20:59 Last Admin: 05/22/21 21:21 Dose: 40 mg Documented by: Vitamin D (Cholecalciferol 5,000 Units 125 Mcg Tab) 5,000 units PO DAILY [facility] Stop: 06/22/21 08:59 Last Admin: 05/23/21 09:05 Dose: 5,000 units Documented by:
[2021-05-23] MEDS: ROSUVASTATIN CALCIUM 20 MG TAB PO SCH (21:23)
[2021-05-23] MEDS: ENOXAPARIN INJ 40 MG/0.4 ML SYR SQ SCH (21:23)
[2021-05-24 05:48] LABS: Basophils # (auto) 0.03 K/uL (0-0.2); Basophils % (auto) 0.3 %; Eosinophils # (auto) 0.32 K/uL (0-0.5); Eosinophils % (auto) 3.7 %; Hematocrit (blood only) 38.6 % (37-47); Immature Granulocytes # (auto) 0.01 K/uL (0.00-0.02); Immature Granulocytes % (auto) 0.1 %; Lymphocytes # (auto) 2.46 K/uL (1.2-3.4); Lymphocytes % (auto) 28.1 %; Mean Corpuscular Hgb Conc 31.1 g/dL (32-36); Mean Platelet Volume 9.4 fL (7.4-10.4); Monocytes # (auto) 0.64 K/uL (0.11-0.59); Monocytes % (auto) 7.3 %; Neutrophils # (auto) 5.29 K/uL (1.4-6.5); Neutrophils % (auto) 60.5 %; Platelet Count 180 K/uL (130-400); RDW Coefficient of Variation 14.4 % (11.5-14.5); RDW Standard Deviation 46.8 fL (36.4-46.3); Red Blood Count 4.29 M/uL (4.2-5.4); White Blood Count 8.75 K/uL (4.8-10.8)
[2021-05-24] MEDS: LEVOTHYROXINE SODIUM 50 MCG TABLET PO SCH (06:07)
[2021-05-24] MEDS: PANTOprazole 40 MG TAB PO SCH (06:07)
[2021-05-24 06:26] LABS: BUN Creatinine Ratio 16.6 (10-20); Calcium 9.1 mg/dl (8.5-10.1); Creatinine Clr Calc Pharmacy 40.8 ml/min; Est GFR (African American) 56.9 ml/min; Est GFR (Non-African American) 49.1 ml/min; Potassium 3.8 mmol/L (3.5-5.1)
[2021-05-24 06:27] LABS: Phosphorus 3.5 mg/dl (2.5-4.9)
[2021-05-24] MEDS: AMOXICILLIN/CLAVULANATE 875 MG TAB PO SCH ×2 (08:29→17:25)
[2021-05-24] MEDS: ASPIRIN 81 MG ECTAB PO SCH (08:29)
[2021-05-24] MEDS: LOSARTAN POTASSIUM 50 MG TAB PO SCH (08:29)
[2021-05-24] MEDS: CHOLECALCIFEROL 5,000 UNITS 125 MCG TAB PO SCH (08:30)
[2021-05-24] MEDS: INSULIN ASPART PER UNIT SC SCH ×4 (08:36→20:14)
--- NOTE | 2021-05-24 16:14 | Hospitalist Progress Note ---
Date of Service May 24, 2021 Assessment & Plan (1) Headache: Plan: Patient is 76 y/o F with PMH left MCA CVA with Right hemiplegia, DM II, HTN, HLD, CKD III, hypothyroidism presented to ER with c/o intermittent JAMISON x 1 week, and intermittent confusion. Blurry vision x 1-2 months. In ER patient afebrile, P: 85, BP: 203/115, 97% on room air. No leukocytosis, K: 3.3, ESR: 48 CT head acute left maxillary sinusitis, no other acute findings. No signs of acute CVA on CT head. Patient without tenderness over temporal region, less likely temporal arteritis. JAMISON may be related to hypertension, sinusitis MRI of the head showed age-related involutional changes with mild to moderate chronic microvascular ischemic disease and old left MCA territory infarct Change in mental status Reports of increased confusion and hallucinations at night. Sounds consistent with delirium Dilantin level is mildly elevated at 26 and the repeat level did not show any improvement Dilantin is on hold for now and will check level tomorrow If improving will restart-Dilantin was 25.2 yesterday and will check it again today and likely restart Dilantin from today SINUSITIS Pt denies fever/chills, rhinorrhea, cough, facial tenderness CT Head: Acute left maxillary sinusitis Start Augmentin (2) HTN (hypertension): Plan: Initially hypertensive in ER with BP 203/115. Given labetalol 10mg IV, losartan 25mg po with BP down to 158/80 Pt did not have am meds Increase losartan to 50mg daily Labetalol prn HTN Blood pressure remains on the upper side at 181/87 today Has been on as needed blood pressure medications (3) Hypokalemia: Plan: K: 3.3 In ER given 40meq KCl po Magnesium level pending Monitor and replace-has been normalized (4) Diabetes mellitus, type II: Plan: A1c: 5.6 in 11/12/2020 Hold home meds NovoLog sliding scale per protocol A1c in a.m. (5) CKD (chronic kidney disease), stage III: Plan: Cr: 0.8 Monitor renal functions, avoid nephrotoxic agents when possible (6) Seizure disorder: Plan: Denies recent seizure Dilantin level pending Continue Dilantin-on hold for today Dilantin level is pending for today-we will restart if the level has been falling (7) Hypothyroid: Plan: TSH pending Continue levothyroxine-2.84 DVT Prophylaxis -Lovenox SQ Full Code as per discussion with pt Follows with Dr Jones for routine care Admission and Anticipated Discharge Date Admission Date: May 22, 2021 Subjective 05/23/2021 The patient was seen and examined in medical telemetry unit She has been feeling much better since admission and denies any significant symptoms Denies any more hallucinations and/or acute confusion 05/24/2021 The patient was seen and examined in medical telemetry unit She has been feeling much better today and denies any significant symptoms She seems to be at her baseline Review of Systems Review of Systems: All systems reviewed and are unremarkable except as noted below Physical Exam Physical Exam: Lying in bed comfortably Constitutional: + ill appearing and average body habitus Eyes: PERRL, conjunctivae normal, anicteric sclerae ENMT: external ear and nose normal, oropharynx normal Neck: trachea midline, no thyromegaly Respiratory: no respiratory distress Auscultation: lungs clear to auscultation bilaterally Cardiovascular: Rate/Rhythm: regular rate and regular rhythm Heart Sounds: normal S1 and normal S2; no murmur Extremities: + edema (Trace edema bilaterally) Gastrointestinal (Abdomen): Inspection/Auscultation: normal bowel sounds; abdomen not distended Percussion/Palpation: abdomen soft; abdomen nontender Musculoskeletal: No acute arthritis in any joint Neurologic: Alert and awake. She has right hemiparesis. Lymphatic: no cervical or axillary lymphadenopathy Results & Data Results & Data ([facility]) Vital Signs (Past 12 Hours) Vital Signs Temp Pulse Pulse Resp BP Pulse Ox 05/24/21 15:55 37 C 75 18 181/87 H 99 05/24/21 15:44 72 05/24/21 11:33 36.4 C L 73 18 129/73 94 05/24/21 07:49 36.6 C 80 18 172/84 H 92 05/24/21 07:17 70 Laboratory Results Short CBC 05/24/21 Range/Units 05:36 WBC 8.75 (4.8-10.8) K/uL Hgb 12.0 (12.0-16.0) g/dL Hct 38.6 (37-47) % Plt Count 180 (130-400) K/uL [facility] 05/24/21 05:36 Sodium 136 Potassium 3.8 Chloride 105 Carbon Dioxide 24 BUN 18 Creatinine 1.10 Glucose 153 H Calcium 9.1 Medications Administered Current Inpatient Medications Acetaminophen (Acetaminophen 325 Mg Tab) 650 mg PO Q4H PRN PRN Reason: Pain or Fever Stop: 06/21/21 20:18 Amoxicillin/Clavulanate Potassium (Amoxicillin/Clavulanate 875 Mg Tab) 1 tab PO BIDM [facility]; Protocol Stop: 06/01/21 20:59 Last Admin: 05/24/21 08:29 Dose: 1 tab Documented by: Aspirin (Aspirin 81 Mg Ectab) 81 mg PO DAILY [facility] Stop: 06/21/21 20:59 Last Admin: 05/24/21 08:29 Dose: 81 mg Documented by: Dextrose (Dextrose 50% 50 Ml Syringe) 25 - 50 ml IV UD PRN; Protocol PRN Reason: Hypoglycemia Protocol Stop: 06/21/21 20:18 Enoxaparin Sodium (Enoxaparin Inj 40 Mg/0.4 Ml Syr) 40 mg SQ Q24H [facility] Stop: 06/21/21 20:59 Last Admin: 05/23/21 21:23 Dose: 40 mg Documented by: Glucagon (Glucagon For Inj 1 Mg Vial) 1 mg SQ UD PRN; Protocol PRN Reason: Hypoglycemia Protocol Stop: 06/21/21 20:18 Glucose (Glucose 10 Tabs/Tube) 4 - 8 tabs PO UD PRN; Protocol PRN Reason: Hypoglycemia Protocol Stop: 06/21/21 20:18 Glucose (Glucose 40% Gel 15 Gm Tube) 15 - 30 gm PO UD PRN; Protocol PRN Reason: Hypoglycemia Protocol Stop: 06/21/21 20:18 Insulin Aspart (Insulin Aspart Per Unit) 0 units SC ACHS [facility] Stop: 06/21/21 20:59 Last Admin: 05/24/21 13:15 Dose: 5 units Documented by: Labetalol HCl (Labetalol Hcl Iv 5 Mg/Ml 20ml) 10 mg IV Q6H PRN PRN Reason: Hypertension Stop: 06/21/21 13:21 Last Admin: 05/22/21 21:37 Dose: 10 mg Documented by: Levothyroxine Sodium (Levothyroxine Sodium 50 Mcg Tablet) [facility]: 06/22/21 06:29 Last Admin: 05/24/21 06:07 Dose: 50 mcg Documented by: Losartan Potassium (Losartan Potassium 50 Mg Tab) 50 mg PO QAM [facility] Stop: 06/22/21 08:59 Last Admin: 05/24/21 08:29 Dose: 50 mg Documented by: Magnesium Hydroxide (Magnesium Hydroxide Susp 30 Ml Udc) 30 ml PO Q12H PRN PRN Reason: Constipation Stop: 06/21/21 20:18 Miscellaneous (Carbohydrates For Hypoglycemia ) 15 - 30 gm PO UD PRN PRN Reason: Hypoglycemia Protocol Stop: 06/21/21 20:18 Pantoprazole Sodium (Pantoprazole 40 Mg Tab) 40 mg PO DAILYBB [facility] Stop: 06/22/21 06:29 Last Admin: 05/24/21 06:07 Dose: 40 mg Documented by: Phenytoin Sodium (Phenytoin Sodium Er 100 Mg Cap) 200 mg PO BID [facility] Stop: 06/21/21 20:59 Last Admin: 05/22/21 21:21 Dose: 200 mg Documented by: Rosuvastatin Calcium (Rosuvastatin Calcium 20 Mg Tab) 40 mg PO HS [facility] Stop: 06/21/21 20:59 Last Admin: 05/23/21 21:23 Dose: 40 mg Documented by: Vitamin D (Cholecalciferol 5,000 Units 125 Mcg Tab) 5,000 units PO DAILY [facility] Stop: 06/22/21 08:59 Last Admin: 05/24/21 08:30 Dose: 5,000 units Documented by:
[2021-05-24] MEDS: amLODIPine BESYLATE 5 MG TAB PO SCH (19:43)
[2021-05-24] MEDS: ENOXAPARIN INJ 40 MG/0.4 ML SYR SQ SCH (20:14)
[2021-05-24] MEDS: ROSUVASTATIN CALCIUM 20 MG TAB PO SCH (20:15)
[2021-05-24] MEDS: PHENYTOIN SODIUM ER 100 MG CAP PO SCH (20:15)
[2021-05-25] MEDS: PANTOprazole 40 MG TAB PO SCH (05:39)
[2021-05-25] MEDS: LEVOTHYROXINE SODIUM 50 MCG TABLET PO SCH (05:40)
[2021-05-25] MEDS: ASPIRIN 81 MG ECTAB PO SCH (08:23)
[2021-05-25] MEDS: INSULIN ASPART PER UNIT SC SCH ×4 (08:23→20:05)
[2021-05-25] MEDS: PHENYTOIN SODIUM ER 100 MG CAP PO SCH ×2 (08:24→20:06)
[2021-05-25] MEDS: AMOXICILLIN/CLAVULANATE 875 MG TAB PO SCH ×2 (08:25→16:13)
[2021-05-25] MEDS: amLODIPine BESYLATE 5 MG TAB PO SCH (09:03)
[2021-05-25] MEDS: LOSARTAN POTASSIUM 50 MG TAB PO SCH (09:03)
[2021-05-25] MEDS: CHOLECALCIFEROL 5,000 UNITS 125 MCG TAB PO SCH (09:04)
--- NOTE | 2021-05-25 14:05 | Hospitalist Progress Note ---
Date of Service May 25, 2021 Assessment & Plan (1) Headache: Plan: Patient is 76 y/o F with PMH left MCA CVA with Right hemiplegia, DM II, HTN, HLD, CKD III, hypothyroidism presented to ER with c/o intermittent JAMISON x 1 week, and intermittent confusion. Blurry vision x 1-2 months. In ER patient afebrile, P: 85, BP: 203/115, 97% on room air. No leukocytosis, K: 3.3, ESR: 48 CT head acute left maxillary sinusitis, no other acute findings. No signs of acute CVA on CT head. Patient without tenderness over temporal region, less likely temporal arteritis. JAMISON may be related to hypertension, sinusitis MRI of the head showed age-related involutional changes with mild to moderate chronic microvascular ischemic disease and old left MCA territory infarct Change in mental status Reports of increased confusion and hallucinations at night. Sounds consistent with delirium Dilantin level is mildly elevated at 26 and the repeat level did not show any improvement Dilantin is on hold for now and will check level tomorrow If improving will restart-Dilantin was 25.2 yesterday and will check it again today and likely restart Dilantin from today Dilantin has been restarted from yesterday Change in mental status has resolved SINUSITIS Pt denies fever/chills, rhinorrhea, cough, facial tenderness CT Head: Acute left maxillary sinusitis Start Augmentin (2) HTN (hypertension): Plan: Initially hypertensive in ER with BP 203/115. Given labetalol 10mg IV, losartan 25mg po with BP down to 158/80 Pt did not have am meds Increase losartan to 50mg daily Labetalol prn HTN Blood pressure remains on the upper side at 181/87 today Has been on as needed blood pressure medications Her blood pressure is stable (3) Hypokalemia: Plan: K: 3.3 In ER given 40meq KCl po Magnesium level pending Monitor and replace-has been normalized (4) Diabetes mellitus, type II: Plan: A1c: 5.6 in 11/12/2020 Hold home meds NovoLog sliding scale per protocol A1c in a.m. (5) CKD (chronic kidney disease), stage III: Plan: Cr: 0.8 Monitor renal functions, avoid nephrotoxic agents when possible (6) Seizure disorder: Plan: Denies recent seizure Dilantin level pending Continue Dilantin-on hold for today Dilantin level is pending for today-we will restart if the level has been falling She is back on her Dilantin (7) Hypothyroid: Plan: TSH pending-noted Continue levothyroxine-2.84 DVT Prophylaxis -Lovenox SQ Full Code as per discussion with pt Follows with Dr Jones for routine care Try to call family members without any response Admission and Anticipated Discharge Date Admission Date: May 22, 2021 Subjective 05/23/2021 The patient was seen and examined in medical telemetry unit She has been feeling much better since admission and denies any significant symptoms Denies any more hallucinations and/or acute confusion 05/24/2021 The patient was seen and examined in medical telemetry unit She has been feeling much better today and denies any significant symptoms She seems to be at her baseline 05/25/2021 The patient was seen and examined in medical telemetry unit She has been stable and back to her normal baseline Has been eating and drinking well denies any significant symptoms Review of Systems Review of Systems: All systems reviewed and are unremarkable except as noted below Physical Exam Physical Exam: Lying in bed comfortably Constitutional: + ill appearing and average body habitus Eyes: PERRL, conjunctivae normal, anicteric sclerae ENMT: external ear and nose normal, oropharynx normal Neck: trachea midline, no thyromegaly Respiratory: no respiratory distress Auscultation: lungs clear to auscultation bilaterally Cardiovascular: Rate/Rhythm: regular rate and regular rhythm Heart Sounds: normal S1 and normal S2; no murmur Extremities: no edema (Trace edema bilaterally) Gastrointestinal (Abdomen): Inspection/Auscultation: normal bowel sounds; abdomen not distended Percussion/Palpation: abdomen soft; abdomen nontender Musculoskeletal: No acute arthritis in any joint Neurologic: Alert and awake. She has right hemiparesis, upper extremity more than the lower extremity. Lymphatic: no cervical or axillary lymphadenopathy Results & Data Results & Data ([facility]) Vital Signs (Past 12 Hours) Vital Signs Temp Pulse Pulse Resp BP Pulse Ox 05/25/21 11:08 36.7 C 73 18 121/78 93 05/25/21 07:28 36.6 C 75 17 133/75 94 05/25/21 07:18 73 05/25/21 03:52 36.7 C 75 16 133/78 97 Medications Administered Current Inpatient Medications Acetaminophen (Acetaminophen 325 Mg Tab) 650 mg PO Q4H PRN PRN Reason: Pain or Fever Stop: 06/21/21 20:18 Amlodipine Besylate (Amlodipine Besylate 5 Mg Tab) 2.5 mg PO QAM [facility] Stop: 06/23/21 18:14 Last Admin: 05/25/21 09:03 Dose: 2.5 mg Documented by: Amoxicillin/Clavulanate Potassium (Amoxicillin/Clavulanate 875 Mg Tab) 1 tab PO BIDM [facility]; Protocol Stop: 06/01/21 20:59 Last Admin: 05/25/21 08:25 Dose: 1 tab Documented by: Aspirin (Aspirin 81 Mg Ectab) 81 mg PO DAILY [facility] Stop: 06/21/21 20:59 Last Admin: 05/25/21 08:23 Dose: 81 mg Documented by: Dextrose (Dextrose 50% 50 Ml Syringe) 25 - 50 ml IV UD PRN; Protocol PRN Reason: Hypoglycemia Protocol Stop: 06/21/21 20:18 Enoxaparin Sodium (Enoxaparin Inj 40 Mg/0.4 Ml Syr) 40 mg SQ Q24H [facility] Stop: 06/21/21 20:59 Last Admin: 05/24/21 20:14 Dose: 40 mg Documented by: Glucagon (Glucagon For Inj 1 Mg Vial) 1 mg SQ UD PRN; Protocol PRN Reason: Hypoglycemia Protocol Stop: 06/21/21 20:18 Glucose (Glucose 10 Tabs/Tube) 4 - 8 tabs PO UD PRN; Protocol PRN Reason: Hypoglycemia Protocol Stop: 06/21/21 20:18 Glucose (Glucose 40% Gel 15 Gm Tube) 15 - 30 gm PO UD PRN; Protocol PRN Reason: Hypoglycemia Protocol Stop: 06/21/21 20:18 Insulin Aspart (Insulin Aspart Per Unit) 0 units SC ACHS [facility] Stop: 06/21/21 20:59 Last Admin: 05/25/21 12:38 Dose: 4 units Documented by: Labetalol HCl (Labetalol Hcl Iv 5 Mg/Ml 20ml) 10 mg IV Q6H PRN PRN Reason: Hypertension Stop: 06/21/21 13:21 Last Admin: 05/22/21 21:37 Dose: 10 mg Documented by: Levothyroxine Sodium (Levothyroxine Sodium 50 Mcg Tablet) 50 mcg PO DAILYBB [facility] Stop: 06/22/21 06:29 Last Admin: 05/25/21 05:40 Dose: 50 mcg Documented by: Losartan Potassium (Losartan Potassium 50 Mg Tab) 50 mg PO QAM [facility] Stop: 06/22/21 08:59 Last Admin: 05/25/21 09:03 Dose: 50 mg Documented by: Magnesium Hydroxide (Magnesium Hydroxide Susp 30 Ml Udc) 30 ml PO Q12H PRN PRN Reason: Constipation Stop: 06/21/21 20:18 Miscellaneous (Carbohydrates For Hypoglycemia ) 15 - 30 gm PO UD PRN PRN Reason: Hypoglycemia Protocol Stop: 06/21/21 20:18 Pantoprazole Sodium (Pantoprazole 40 Mg Tab) 40 mg PO DAILYBB [facility] Stop: 06/22/21 06:29 Last Admin: 05/25/21 05:39 Dose: 40 mg Documented by: Phenytoin Sodium (Phenytoin Sodium Er 100 Mg Cap) 200 mg PO BID [facility] Stop: 06/21/21 20:59 Last Admin: 05/25/21 08:24 Dose: 200 mg Documented by: Rosuvastatin Calcium (Rosuvastatin Calcium 20 Mg Tab) 40 mg PO HS [facility] Stop: 06/21/21 20:59 Last Admin: 05/24/21 20:15 Dose: 40 mg Documented by: Vitamin D (Cholecalciferol 5,000 Units 125 Mcg Tab) 5,000 units PO DAILY [facility] Stop: 06/22/21 08:59 Last Admin: 05/25/21 09:04 Dose: 5,000 units Documented by:
[2021-05-25] MEDS: ENOXAPARIN INJ 40 MG/0.4 ML SYR SQ SCH (20:05)
[2021-05-25] MEDS: ROSUVASTATIN CALCIUM 20 MG TAB PO SCH (20:06)
[2021-05-26] MEDS: PANTOprazole 40 MG TAB PO SCH (05:40)
[2021-05-26] MEDS: LEVOTHYROXINE SODIUM 50 MCG TABLET PO SCH (05:40)
[2021-05-26 07:26] LABS: Creatinine Clr Calc Pharmacy 43.7 ml/min; Est GFR (African American) 61.6 ml/min; Est GFR (Non-African American) 53.1 ml/min
[2021-05-26] MEDS: INSULIN ASPART PER UNIT SC SCH ×4 (08:11→20:21)
[2021-05-26] MEDS: PHENYTOIN SODIUM ER 100 MG CAP PO SCH ×2 (08:12→20:23)
[2021-05-26] MEDS: LOSARTAN POTASSIUM 50 MG TAB PO SCH (08:12)
[2021-05-26] MEDS: ASPIRIN 81 MG ECTAB PO SCH (08:12)
[2021-05-26] MEDS: CHOLECALCIFEROL 5,000 UNITS 125 MCG TAB PO SCH (08:12)
[2021-05-26] MEDS: amLODIPine BESYLATE 5 MG TAB PO SCH (08:12)
[2021-05-26] MEDS: AMOXICILLIN/CLAVULANATE 875 MG TAB PO SCH ×2 (08:13→17:13)
--- NOTE | 2021-05-26 13:20 | Hospitalist Progress Note ---
Date of Service May 26, 2021 Assessment & Plan (1) Headache: Plan: Patient is 76 y/o F with PMH left MCA CVA with Right hemiplegia, DM II, HTN, HLD, CKD III, hypothyroidism presented to ER with c/o intermittent JAMISON x 1 week, and intermittent confusion. Blurry vision x 1-2 months. In ER patient afebrile, P: 85, BP: 203/115, 97% on room air. No leukocytosis, K: 3.3, ESR: 48 CT head acute left maxillary sinusitis, no other acute findings. No signs of acute CVA on CT head. Patient without tenderness over temporal region, less likely temporal arteritis. JAMISON may be related to hypertension, sinusitis MRI of the head showed age-related involutional changes with mild to moderate chronic microvascular ischemic disease and old left MCA territory infarct Denies any more headache Change in mental status Reports of increased confusion and hallucinations at night. Sounds consistent with delirium Dilantin level is mildly elevated at 26 and the repeat level did not show any improvement Dilantin is on hold for now and will check level tomorrow If improving will restart-Dilantin was 25.2 yesterday and will check it again today and likely restart Dilantin from today Dilantin has been restarted from yesterday Change in mental status has resolved-she is back to her baseline SINUSITIS Pt denies fever/chills, rhinorrhea, cough, facial tenderness CT Head: Acute left maxillary sinusitis Start Augmentin (2) HTN (hypertension): Plan: Initially hypertensive in ER with BP 203/115. Given labetalol 10mg IV, losartan 25mg po with BP down to 158/80 Pt did not have am meds Increase losartan to 50mg daily Labetalol prn HTN Blood pressure remains on the upper side at 181/87 today Has been on as needed blood pressure medications Her blood pressure is stable (3) Hypokalemia: Plan: K: 3.3 In ER given 40meq KCl po Magnesium level pending Monitor and replace-has been normalized (4) Diabetes mellitus, type II: Plan: A1c: 5.6 in 11/12/2020 Hold home meds NovoLog sliding scale per protocol A1c in a.m.-6.2 (5) CKD (chronic kidney disease), stage III: Plan: Cr: 0.8 Monitor renal functions, avoid nephrotoxic agents when possible (6) Seizure disorder: Plan: Denies recent seizure Dilantin level pending Continue Dilantin-on hold for today Dilantin level is pending for today-we will restart if the level has been falling She is back on her Dilantin Remains stable (7) Hypothyroid: Plan: TSH pending-2.840 Continue levothyroxine- DVT Prophylaxis -Lovenox SQ Full Code as per discussion with pt Follows with Dr Jones for routine care Try to call family members without any response Likely discharge tomorrow Admission and Anticipated Discharge Date Admission Date: May 22, 2021 Subjective 05/23/2021 The patient was seen and examined in medical telemetry unit She has been feeling much better since admission and denies any significant symptoms Denies any more hallucinations and/or acute confusion 05/24/2021 The patient was seen and examined in medical telemetry unit She has been feeling much better today and denies any significant symptoms She seems to be at her baseline 05/25/2021 The patient was seen and examined in medical telemetry unit She has been stable and back to her normal baseline Has been eating and drinking well denies any significant symptoms 05/26/2021 The patient was seen and examined in medical telemetry unit She has been feeling much better and denies any significant symptoms She has been eating and drinking well Review of Systems Review of Systems: All systems reviewed and are unremarkable except as noted below Neurologic: Has right hemiparesis Physical Exam Physical Exam: Lying in bed comfortably Constitutional: + ill appearing and average body habitus Eyes: PERRL, conjunctivae normal, anicteric sclerae ENMT: external ear and nose normal, oropharynx normal Neck: trachea midline, no thyromegaly Respiratory: no respiratory distress Auscultation: lungs clear to auscultation bilaterally Cardiovascular: Rate/Rhythm: regular rate and regular rhythm Heart Sounds: normal S1 and normal S2; no murmur Extremities: no edema (Trace edema bilaterally) Gastrointestinal (Abdomen): Inspection/Auscultation: normal bowel sounds; abdomen not distended Percussion/Palpation: abdomen soft; abdomen nontender Musculoskeletal: No acute arthritis in any joint Neurologic: Alert and awake. Generally weak with right hemiparesis Lymphatic: no cervical or axillary lymphadenopathy Results & Data Results & Data ([facility]) Vital Signs (Past 12 Hours) Vital Signs Temp Pulse Pulse Resp BP Pulse Ox 05/26/21 11:52 36.7 C 82 20 139/74 94 05/26/21 08:00 36.4 C L 76 65 20 137/80 96 05/26/21 03:05 36.5 C 74 18 121/71 96 Laboratory Results BMP 05/26/21 06:13 Creatinine 1.03 Medications Administered Current Inpatient Medications Acetaminophen (Acetaminophen 325 Mg Tab) 650 mg PO Q4H PRN PRN Reason: Pain or Fever Stop: 06/21/21 20:18 Amlodipine Besylate (Amlodipine Besylate 5 Mg Tab) 2.5 mg PO QAM [facility] Stop: 06/23/21 18:14 Last Admin: 05/26/21 08:12 Dose: 2.5 mg Documented by: Amoxicillin/Clavulanate Potassium (Amoxicillin/Clavulanate 875 Mg Tab) 1 tab PO BIDM [facility]; Protocol Stop: 06/01/21 20:59 Last Admin: 05/26/21 08:13 Dose: 1 tab Documented by: Aspirin (Aspirin 81 Mg Ectab) 81 mg PO DAILY [facility] Stop: 06/21/21 20:59 Last Admin: 05/26/21 08:12 Dose: 81 mg Documented by: Dextrose (Dextrose 50% 50 Ml Syringe) 25 - 50 ml IV UD PRN; Protocol PRN Reason: Hypoglycemia Protocol Stop: 06/21/21 20:18 Enoxaparin Sodium (Enoxaparin Inj 40 Mg/0.4 Ml Syr) 40 mg SQ Q24H [facility] Stop: 06/21/21 20:59 Last Admin: 05/25/21 20:05 Dose: 40 mg Documented by: Glucagon (Glucagon For Inj 1 Mg Vial) 1 mg SQ UD PRN; Protocol PRN Reason: Hypoglycemia Protocol Stop: 06/21/21 20:18 Glucose (Glucose 10 Tabs/Tube) 4 - 8 tabs PO UD PRN; Protocol PRN Reason: Hypoglycemia Protocol Stop: 06/21/21 20:18 Glucose (Glucose 40% Gel 15 Gm Tube) 15 - 30 gm PO UD PRN; Protocol PRN Reason: Hypoglycemia Protocol Stop: 06/21/21 20:18 Insulin Aspart (Insulin Aspart Per Unit) 0 units SC ACHS [facility] Stop: 06/21/21 20:59 Last Admin: 05/26/21 12:07 Dose: 7 units Documented by: Labetalol HCl (Labetalol Hcl Iv 5 Mg/Ml 20ml) 10 mg IV Q6H PRN PRN Reason: Hypertension Stop: 06/21/21 13:21 Last Admin: 05/22/21 21:37 Dose: 10 mg Documented by: Levothyroxine Sodium (Levothyroxine Sodium 50 Mcg Tablet) 50 mcg PO DAILYBB [facility] Stop: 06/22/21 06:29 Last Admin: 05/26/21 05:40 Dose: 50 mcg Documented by: Losartan Potassium (Losartan Potassium 50 Mg Tab) 50 mg PO QAM [facility] Stop: 06/22/21 08:59 Last Admin: 05/26/21 08:12 Dose: 50 mg Documented by: Magnesium Hydroxide (Magnesium Hydroxide Susp 30 Ml Udc) 30 ml PO Q12H PRN PRN Reason: Constipation Stop: 06/21/21 20:18 Miscellaneous (Carbohydrates For Hypoglycemia ) 15 - 30 gm PO UD PRN PRN Reason: Hypoglycemia Protocol Stop: 06/21/21 20:18 Pantoprazole Sodium (Pantoprazole 40 Mg Tab) 40 mg PO DAILYBB [facility] Stop: 06/22/21 06:29 Last Admin: 05/26/21 05:40 Dose: 40 mg Documented by: Phenytoin Sodium (Phenytoin Sodium Er 100 Mg Cap) 200 mg PO BID [facility] Stop: 06/21/21 20:59 Last Admin: 05/26/21 08:12 Dose: 200 mg Documented by: Rosuvastatin Calcium (Rosuvastatin Calcium 20 Mg Tab) 40 mg PO HS [facility] Stop: 06/21/21 20:59 Last Admin: 05/25/21 20:06 Dose: 40 mg Documented by: Vitamin D (Cholecalciferol 5,000 Units 125 Mcg Tab) 5,000 units PO DAILY [facility] Stop: 06/22/21 08:59 Last Admin: 05/26/21 08:12 Dose: 5,000 units Documented by:
[2021-05-26] MEDS: ENOXAPARIN INJ 40 MG/0.4 ML SYR SQ SCH (20:21)
[2021-05-26] MEDS: ROSUVASTATIN CALCIUM 20 MG TAB PO SCH (20:23)
--- NOTE | 2021-05-27 01:14 | Emergency Department Note ---
History of Present Illness General Chief complaint: Headache Stated complaint: HEADACHE Time Seen by Provider: 05/22/21 10:04 History of Present Illness Maximum Pain Intensity: 7 Home Medications Medication Instructions Recorded Confirmed Type metformin 500 mg tablet,extended 1,000 mg PO DAILY 04/15/19 05/22/21 History release 24 hr rosuvastatin 40 mg tablet 40 mg PO HS 04/15/19 05/22/21 History aspirin 81 mg chewable tablet 81 mg PO DAILY 12/15/19 05/22/21 History cholecalciferol (vitamin D3) 125 125 mcg PO DAILY 12/15/19 05/22/21 History mcg (5,000 unit) tablet (Vitamin D3) levothyroxine 75 mcg tablet 50 mcg PO DAILYBB #0 tab 12/21/19 05/22/21 Rx losartan 25 mg tablet 25 mg PO DAILY 05/07/21 05/22/21 History pantoprazole 40 mg tablet,delayed 40 mg PO DAILYBB 05/07/21 05/22/21 History release phenytoin sodium extended 100 mg 200 mg PO BID 05/07/21 05/22/21 History capsule Allergies Allergy/AdvReac Type Severity Reaction Status Date / Time No Known Allergies Allergy Unknown Verified 12/15/19 11:45 Past Med/Surg History Medical History Anemia Carotid artery stenosis CKD (chronic kidney disease), stage III Depression Diabetes mellitus Diabetes mellitus, type II Diabetic nephropathy History of CVA (cerebrovascular accident) hx L MCA CVA with RHP 2001 HTN (hypertension) Hyperlipidemia Hypothyroid Obesity Overactive bladder Seizure disorder s/p CVA TIA (transient ischemic attack) Surgical History History of appendectomy Family History Father Cancer Brother Myocardial infarction Social History Smoking Status: Never smoker Hx Alcohol Use: No Hx Substance Use: No Preferred Language: Polish Communication Ability: Effective 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 Beliefs That Will Affect Care: None Current Living Situation: Family How many Children do You have: 4 Other Information That Helps Us Care for You: No Feels Safe at Home: Yes Safety Concerns: Feels Safe At This Time Assistive Devices: Walker Assistive Devices Comment: States is a lift into a wc, wcbound Course Administered Medications Acetaminophen (Acetaminophen 325 Mg Tab) 650 mg PO Q4H PRN PRN Reason: Pain or Fever Stop: 06/21/21 20:18 Last Admin: 05/26/21 19:37 Dose: 650 mg Documented by: [id number] Amlodipine Besylate (Amlodipine Besylate 5 Mg Tab) 2.5 mg PO QAM [facility] Stop: 06/23/21 18:14 Last Admin: 05/26/21 08:12 Dose: 2.5 mg Documented by: [id number] Admin: 05/25/21 09:03 Dose: 2.5 mg Documented by: [id number] Admin: 05/24/21 19:43 Dose: 2.5 mg Documented by: [id number] Amoxicillin/Clavulanate Potassium (Amoxicillin/Clavulanate 875 Mg Tab) 1 tab PO BIDM [facility]; Protocol Stop: 06/01/21 20:59 Last Admin: 05/26/21 17:13 Dose: 1 tab Documented by: [id number] Admin: 05/26/21 08:13 Dose: 1 tab Documented by: [id number] Admin: 05/25/21 16:13 Dose: 1 tab Documented by: [id number] Admin: 05/25/21 08:25 Dose: 1 tab Documented by: [id number] Admin: 05/24/21 17:25 Dose: 1 tab Documented by: [id number] Admin: 05/24/21 08:29 Dose: 1 tab Documented by: [id number] Admin: 05/23/21 17:43 Dose: 1 tab Documented by: [id number] Admin: 05/23/21 09:04 Dose: 1 tab Documented by: [id number] Admin: 05/22/21 21:20 Dose: 1 tab Documented by: [id number] Aspirin (Aspirin 81 Mg Ectab) 81 mg PO DAILY [facility] Stop: 06/21/21 20:59 Last Admin: 05/26/21 08:12 Dose: 81 mg Documented by: [id number] Admin: 05/25/21 08:23 Dose: 81 mg Documented by: [id number] Admin: 05/24/21 08:29 Dose: 81 mg Documented by: [id number] Admin: 05/23/21 09:05 Dose: 81 mg Documented by: [id number] Admin: 05/22/21 21:20 Dose: 81 mg Documented by: [id number] Enoxaparin Sodium (Enoxaparin Inj 40 Mg/0.4 Ml Syr) 40 mg SQ Q24H [facility] Stop: 06/21/21 20:59 Last Admin: 05/26/21 20:21 Dose: 40 mg Documented by: [id number] Admin: 05/25/21 20:05 Dose: 40 mg Documented by: [id number] Admin: 05/24/21 20:14 Dose: 40 mg Documented by: [id number] Admin: 05/23/21 21:23 Dose: 40 mg Documented by: [id number] Admin: 05/22/21 21:20 Dose: 40 mg Documented by: [id number] Insulin Aspart (Insulin Aspart Per Unit) 0 units SC ACHS [facility] Stop: 06/21/21 20:59 Last Admin: 05/26/21 20:21 Dose: Not Given Documented by: [id number] Admin: 05/26/21 17:12 Dose: 5 units Documented by: [id number] Cosigned by: [id number] Admin: 05/26/21 12:07 Dose: 7 units Documented by: [id number] Cosigned by: [id number] Admin: 05/26/21 08:11 Dose: 5 units Documented by: [id number] Cosigned by: [id number] Admin: 05/25/21 20:05 Dose: Not Given Documented by: [id number] Admin: 05/25/21 17:21 Dose: 6 units Documented by: [id number] Cosigned by: [id number] Admin: 05/25/21 12:38 Dose: 4 units Documented by: [id number] Cosigned by: [id number] Admin: 05/25/21 08:23 Dose: 3 units Documented by: [id number] Cosigned by: [id number] Admin: 05/24/21 20:14 Dose: Not Given Documented by: [id number] Admin: 05/24/21 17:23 Dose: Not Given Documented by: [id number] Admin: 05/24/21 13:15 Dose: 5 units Documented by: [id number] Cosigned by: [id number] Admin: 05/24/21 08:36 Dose: 3 units Documented by: [id number] Cosigned by: [id number] Admin: 05/23/21 21:24 Dose: Not Given Documented by: [id number] Admin: 05/23/21 17:43 Dose: 3 units Documented by: [id number] Cosigned by: [id number] Admin: 05/23/21 12:44 Dose: 4 units Documented by: [id number] Cosigned by: [id number] Admin: 05/23/21 09:14 Dose: 5 units Documented by: [id number] Cosigned by: [id number] Admin: 05/22/21 21:37 Dose: 3 units Documented by: [id number] Cosigned by: [id number] Labetalol HCl (Labetalol Hcl Iv 5 Mg/Ml 20ml) 10 mg IV Q6H PRN PRN Reason: Hypertension Stop: 06/21/21 13:21 Last Admin: 05/22/21 21:37 Dose: 10 mg Documented by: [id number] Cosigned by: [id number] Levothyroxine Sodium (Levothyroxine Sodium 50 Mcg Tablet) 50 mcg PO DAILYBB [facility] Stop: 06/22/21 06:29 Last Admin: 05/26/21 05:40 Dose: 50 mcg Documented by: [id number] Admin: 05/25/21 05:40 Dose: 50 mcg Documented by: [id number] Admin: 05/24/21 06:07 Dose: 50 mcg Documented by: [id number] Admin: 05/23/21 06:33 Dose: 50 mcg Documented by: [id number] Losartan Potassium (Losartan Potassium 50 Mg Tab) 50 mg PO QAM [facility] Stop: 06/22/21 08:59 Last Admin: 05/26/21 08:12 Dose: 50 mg Documented by: [id number] Admin: 05/25/21 09:03 Dose: 50 mg Documented by: [id number] Admin: 05/24/21 08:29 Dose: 50 mg Documented by: [id number] Admin: 05/23/21 09:04 Dose: 50 mg Documented by: [id number] Pantoprazole Sodium (Pantoprazole 40 Mg Tab) 40 mg PO DAILYBB [facility] Stop: 06/22/21 06:29 Last Admin: 05/26/21 05:40 Dose: 40 mg Documented by: [id number] Admin: 05/25/21 05:39 Dose: 40 mg Documented by: [id number] Admin: 05/24/21 06:07 Dose: 40 mg Documented by: [id number] Admin: 05/23/21 06:33 Dose: 40 mg Documented by: [id number] Phenytoin Sodium (Phenytoin Sodium Er 100 Mg Cap) 200 mg PO BID [facility] Stop: 06/21/21 20:59 Last Admin: 05/26/21 20:23 Dose: 200 mg Documented by: [id number] Admin: 05/26/21 08:12 Dose: 200 mg Documented by: [id number] Admin: 05/25/21 20:06 Dose: 200 mg Documented by: [id number] Admin: 05/25/21 08:24 Dose: 200 mg Documented by: [id number] Admin: 05/24/21 20:15 Dose: 200 mg Documented by: [id number] Admin: 05/22/21 21:21 Dose: 200 mg Documented by: [id number] Rosuvastatin Calcium (Rosuvastatin Calcium 20 Mg Tab) 40 mg PO HS [facility] Stop: 06/21/21 20:59 Last Admin: 05/26/21 20:23 Dose: 40 mg Documented by: [id number] Admin: 05/25/21 20:06 Dose: 40 mg Documented by: [id number] Admin: 05/24/21 20:15 Dose: 40 mg Documented by: [id number] Admin: 05/23/21 21:23 Dose: 40 mg Documented by: [id number] Admin: 05/22/21 21:21 Dose: 40 mg Documented by: [id number] Vitamin D (Cholecalciferol 5,000 Units 125 Mcg Tab) 5,000 units PO DAILY [facility] Stop: 06/22/21 08:59 Last Admin: 05/26/21 08:12 Dose: 5,000 units Documented by: [id number] Admin: 05/25/21 09:04 Dose: 5,000 units Documented by: [id number] Admin: 05/24/21 08:30 Dose: 5,000 units Documented by: [id number] Admin: 05/23/21 09:05 Dose: 5,000 units Documented by: [id number] Discontinued Medications Labetalol HCl (Labetalol Hcl Iv 5 Mg/Ml 20ml) 10 mg IV NOW STA Stop: 05/22/21 10:29 Last Admin: 05/22/21 10:43 Dose: 10 mg Documented by: [id number] Cosigned by: [id number] Losartan Potassium (Losartan Potassium 25 Mg Tab) 25 mg PO NOW STA Stop: 05/22/21 11:08 Last Admin: 05/22/21 12:15 Dose: 25 mg Documented by: [id number] Losartan Potassium (Losartan Potassium 25 Mg Tab) 25 mg PO ONE ONE Stop: 05/22/21 13:46 Last Admin: 05/22/21 16:08 Dose: 25 mg Documented by: [id number] Potassium Chloride (Potassium Chloride Crtab 20 Meq Tabcr) 40 meq PO NOW STA Stop: 05/22/21 11:34 Last Admin: 05/22/21 12:15 Dose: 40 meq Documented by: [id number] Medical Decision Making Laboratory Data Result diagrams: 05/24/21 05:36 05/26/21 06:13 Lab Results 05/22/21 05/22/21 05/22/21 Range/Units 10:45 10:45 10:45 WBC 7.43 (4.8-10.8) K/uL RBC 4.63 (4.2-5.4) M/uL Hgb 13.0 (12.0-16.0) g/dL Hct 41.2 (37-47) % MCV 89.0 (80-100) fL MCH 28.1 (25-34) pg MCHC 31.6 L (32-36) g/dL RDW Std Deviation 45.8 (36.4-46.3) fL RDW Coeff of Maurice 14.0 (11.5-14.5) % Plt Count 218 (130-400) K/uL MPV 9.3 (7.4-10.4) fL Immature Gran % (Auto) 0.3 % Neut % (Auto) 60.7 % Lymph % (Auto) 28.9 % [place] % (Auto) 6.7 % Eos % (Auto) 3.1 % Baso % (Auto) 0.3 % Neut # (Auto) 4.51 (1.4-6.5) K/uL Lymph # (Auto) 2.15 (1.2-3.4) K/uL [place] # (Auto) 0.50 (0.11-0.59) K/uL Eos # (Auto) 0.23 (0-0.5) K/uL Baso # (Auto) 0.02 (0-0.2) K/uL Immature Gran # (Auto) 0.02 (0.00-0.02) K/uL ESR 48 H (0-30) mm/hr Sodium 139 (136-145) mmol/L Potassium 3.3 L (3.5-5.1) mmol/L Chloride 103 (98-107) mmol/L Carbon Dioxide 29 (21-32) mmol/L Anion Gap 7.0 (3-11) BUN 12 (7-18) mg/dl Creatinine 0.82 (0.6-1.2) mg/dl Est Cr Clr Drug Dosing 57.0 ml/min Est GFR ( Amer) 81.1 ml/min Est GFR (Non-Af Amer) 70.0 ml/min BUN/Creatinine Ratio 15.0 (10-20) Glucose 144 H (70-99) mg/dl Calcium 9.1 (8.5-10.1) mg/dl Magnesium (1.8-2.4) mg/dl Total Bilirubin 0.2 (0.2-1) mg/dl AST 26 (15-37) U/L ALT 35 (12-78) Alkaline Phosphatase 93 (45-117) U/L Total Protein 7.8 (6.4-8.2) gm/dl Albumin 3.4 (3.4-5.0) gm/dl Globulin 4.4 H (2.5-4.0) gm/dl Albumin/Globulin Ratio 0.8 L (0.9-2) TSH (0.300-4.500) uIu/ml 05/22/21 Range/Units 10:45 WBC (4.8-10.8) K/uL RBC (4.2-5.4) M/uL Hgb (12.0-16.0) g/dL Hct (37-47) % MCV (80-100) fL MCH (25-34) pg MCHC (32-36) g/dL RDW Std Deviation (36.4-46.3) fL RDW Coeff of Maurice (11.5-14.5) % Plt Count (130-400) K/uL MPV (7.4-10.4) fL Immature Gran % (Auto) % Neut % (Auto) % Lymph % (Auto) % [place] % (Auto) % Eos % (Auto) % Baso % (Auto) % Neut # (Auto) (1.4-6.5) K/uL Lymph # (Auto) (1.2-3.4) K/uL [place] # (Auto) (0.11-0.59) K/uL Eos # (Auto) (0-0.5) K/uL Baso # (Auto) (0-0.2) K/uL Immature Gran # (Auto) (0.00-0.02) K/uL ESR (0-30) mm/hr Sodium (136-145) mmol/L Potassium (3.5-5.1) mmol/L Chloride (98-107) mmol/L Carbon Dioxide (21-32) mmol/L Anion Gap (3-11) BUN (7-18) mg/dl Creatinine (0.6-1.2) mg/dl Est Cr Clr Drug Dosing ml/min Est GFR ( Amer) ml/min Est GFR (Non-Af Amer) ml/min BUN/Creatinine Ratio (10-20) Glucose (70-99) mg/dl Calcium (8.5-10.1) mg/dl Magnesium 1.6 L (1.8-2.4) mg/dl Total Bilirubin (0.2-1) mg/dl AST (15-37) U/L ALT (12-78) Alkaline Phosphatase (45-117) U/L Total Protein (6.4-8.2) gm/dl Albumin (3.4-5.0) gm/dl Globulin (2.5-4.0) gm/dl Albumin/Globulin Ratio (0.9-2) TSH 2.350 (0.300-4.500) uIu/ml Impression & Plan Hypertensive urgency, History of CVA (cerebrovascular accident), Hypokalemia, Headache, Hyperglycemia Discharge Plan Visit Data Chief Complaint: Headache Stated Complaint: HEADACHE ED Provider: Marco A Srivastava ED Midlevel Provider: Antonia Granados Discharge Problem: Hypertensive urgency, History of CVA (cerebrovascular accident), Hypokalemia, Headache, Hyperglycemia Patient Disposition: Admitted As Inpatient Discharge Instructions Interventions: ED Discharge Assessment Last Done: 05/22/21 14:30 Discharge Problem: Headache Qualifiers: Headache type: unspecified Headache chronicity pattern: acute headache Intractability: not intractable Qualified Code(s): R51.9 - Headache, unspecified
[2021-05-27] MEDS: PANTOprazole 40 MG TAB PO SCH (05:59)
[2021-05-27] MEDS: LEVOTHYROXINE SODIUM 50 MCG TABLET PO SCH (05:59)
[2021-05-27 07:39] LABS: Basophils # (auto) 0.03 K/uL (0-0.2); Basophils % (auto) 0.4 %; Eosinophils # (auto) 0.29 K/uL (0-0.5); Eosinophils % (auto) 4.1 %; Hemoglobin 11.3 g/dL (12.0-16.0); Immature Granulocytes # (auto) 0.02 K/uL (0.00-0.02); Immature Granulocytes % (auto) 0.3 %; Lymphocytes # (auto) 2.25 K/uL (1.2-3.4); Lymphocytes % (auto) 31.7 %; Mean Corpuscular Hemoglobin 27.9 pg (25-34); Mean Corpuscular Hgb Conc 31.4 g/dL (32-36); Mean Corpuscular Volume 88.9 fL (80-100); Mean Platelet Volume 9.7 fL (7.4-10.4); Monocytes % (auto) 8.5 %; Neutrophils # (auto) 3.91 K/uL (1.4-6.5); Platelet Count 179 K/uL (130-400); RDW Coefficient of Variation 14.5 % (11.5-14.5); RDW Standard Deviation 47.2 fL (36.4-46.3); Red Blood Count 4.05 M/uL (4.2-5.4)
[2021-05-27 08:10] LABS: BUN Creatinine Ratio 27.2 (10-20); Calcium 8.6 mg/dl (8.5-10.1); Creatinine Clr Calc Pharmacy 50.6 ml/min; Est GFR (African American) 72.5 ml/min; Est GFR (Non-African American) 62.5 ml/min; Potassium 3.4 mmol/L (3.5-5.1)
[2021-05-27] MEDS ORDERED: POTASSIUM CHLORIDE CRTAB 20 MEQ TABCR PO STA (08:25)
[2021-05-27] MEDS: INSULIN ASPART PER UNIT SC SCH ×4 (08:43→22:19)
[2021-05-27] MEDS: LOSARTAN POTASSIUM 50 MG TAB PO SCH (08:46)
[2021-05-27] MEDS: amLODIPine BESYLATE 5 MG TAB PO SCH (08:47)
[2021-05-27] MEDS: ASPIRIN 81 MG ECTAB PO SCH (08:47)
[2021-05-27] MEDS: CHOLECALCIFEROL 5,000 UNITS 125 MCG TAB PO SCH (08:47)
[2021-05-27] MEDS: AMOXICILLIN/CLAVULANATE 875 MG TAB PO SCH ×2 (08:47→17:22)
[2021-05-27] MEDS: PHENYTOIN SODIUM ER 100 MG CAP PO SCH ×2 (10:15→21:58)
--- NOTE | 2021-05-27 15:26 | Hospitalist Progress Note ---
Date of Service May 27, 2021 Assessment & Plan (1) Headache: Plan: Patient is 76 y/o F with PMH left MCA CVA with Right hemiplegia, DM II, HTN, HLD, CKD III, hypothyroidism presented to ER with c/o intermittent JAMISON x 1 week, and intermittent confusion. Blurry vision x 1-2 months. In ER patient afebrile, P: 85, BP: 203/115, 97% on room air. No leukocytosis, K: 3.3, ESR: 48 CT head acute left maxillary sinusitis, no other acute findings. No signs of acute CVA on CT head. Patient without tenderness over temporal region, less likely temporal arteritis. JAMISON may be related to hypertension, sinusitis MRI of the head showed age-related involutional changes with mild to moderate chronic microvascular ischemic disease and old left MCA territory infarct Denies any more headache Change in mental status Reports of increased confusion and hallucinations at night. Sounds consistent with delirium Dilantin level is mildly elevated at 26 and the repeat level did not show any improvement Dilantin is on hold for now and will check level tomorrow If improving will restart-Dilantin was 25.2 yesterday and will check it again today and likely restart Dilantin from today Dilantin has been restarted from yesterday Change in mental status has resolved-she is back to her baseline Remains stable and wants to go home tomorrow SINUSITIS Pt denies fever/chills, rhinorrhea, cough, facial tenderness CT Head: Acute left maxillary sinusitis Start Augmentin -denies any sinus pain and/or pressure (2) HTN (hypertension): Plan: Initially hypertensive in ER with BP 203/115. Given labetalol 10mg IV, losartan 25mg po with BP down to 158/80 Pt did not have am meds Increase losartan to 50mg daily Labetalol prn HTN Blood pressure remains on the upper side at 181/87 today Has been on as needed blood pressure medications Her blood pressure is stable (3) Hypokalemia: Plan: K: 3.3 In ER given 40meq KCl po Magnesium level pending Monitor and replace-has been normalized (4) Diabetes mellitus, type II: Plan: A1c: 5.6 in 11/12/2020 Hold home meds NovoLog sliding scale per protocol A1c in a.m.-6.2 (5) CKD (chronic kidney disease), stage III: Plan: Cr: 0.8 Monitor renal functions, avoid nephrotoxic agents when possible (6) Seizure disorder: Plan: Denies recent seizure Dilantin level pending Continue Dilantin-on hold for today Dilantin level is pending for today-we will restart if the level has been falling She is back on her Dilantin Remains stable (7) Hypothyroid: Plan: TSH pending-2.840 Continue levothyroxine- DVT Prophylaxis -Lovenox SQ Full Code as per discussion with pt Follows with Dr Jones for routine care Try to call family members without any response Likely discharge tomorrow Admission and Anticipated Discharge Date Admission Date: May 22, 2021 Subjective 05/23/2021 The patient was seen and examined in medical telemetry unit She has been feeling much better since admission and denies any significant symptoms Denies any more hallucinations and/or acute confusion 05/24/2021 The patient was seen and examined in medical telemetry unit She has been feeling much better today and denies any significant symptoms She seems to be at her baseline 05/25/2021 The patient was seen and examined in medical telemetry unit She has been stable and back to her normal baseline Has been eating and drinking well denies any significant symptoms 05/26/2021 The patient was seen and examined in medical telemetry unit She has been feeling much better and denies any significant symptoms She has been eating and drinking well 05/27/2021 The patient was seen and examined in medical telemetry unit She has been feeling better and she is back to her baseline Does not want to go home today and says that she will go home tomorrow Review of Systems Review of Systems: All systems reviewed and are unremarkable except as noted below Neurologic: Has right hemiparesis Physical Exam Physical Exam: Lying in bed comfortably Constitutional: + ill appearing and average body habitus Eyes: PERRL, conjunctivae normal, anicteric sclerae ENMT: external ear and nose normal, oropharynx normal Neck: trachea midline, no thyromegaly Respiratory: no respiratory distress Auscultation: lungs clear to auscultation bilaterally Cardiovascular: Rate/Rhythm: regular rate and regular rhythm Heart Sounds: normal S1 and normal S2; no murmur Extremities: no edema (Trace edema bilaterally) Gastrointestinal (Abdomen): Inspection/Auscultation: normal bowel sounds; abdomen not distended Percussion/Palpation: abdomen soft; abdomen nontender Musculoskeletal: No acute arthritis in any joint Neurologic: Alert and awake. Right hemiparesis from prior stroke Lymphatic: no cervical or axillary lymphadenopathy Results & Data Results & Data ([facility]) Vital Signs (Past 12 Hours) Vital Signs Temp Pulse Pulse Resp BP Pulse Ox 05/27/21 15:00 73 05/27/21 11:30 36.3 C L 74 18 131/75 97 05/27/21 07:00 36.4 C L 69 67 20 137/73 97 05/27/21 04:15 36.5 C 67 20 146/76 H 94 Laboratory Results Current Inpatient Medications Acetaminophen (Acetaminophen 325 Mg Tab) 650 mg PO Q4H PRN PRN Reason: Pain or Fever Stop: 06/21/21 20:18 Last Admin: 05/26/21 19:37 Dose: 650 mg Documented by: Amlodipine Besylate (Amlodipine Besylate 5 Mg Tab) 2.5 mg PO QAM [facility] Stop: 06/23/21 18:14 Last Admin: 05/27/21 08:47 Dose: 2.5 mg Documented by: Amoxicillin/Clavulanate Potassium (Amoxicillin/Clavulanate 875 Mg Tab) 1 tab PO BIDM [facility]; Protocol Stop: 06/01/21 20:59 Last Admin: 05/27/21 08:47 Dose: 1 tab Documented by: Aspirin (Aspirin 81 Mg Ectab) 81 mg PO DAILY [facility] Stop: 06/21/21 20:59 Last Admin: 05/27/21 08:47 Dose: 81 mg Documented by: Dextrose (Dextrose 50% 50 Ml Syringe) 25 - 50 ml IV UD PRN; Protocol PRN Reason: Hypoglycemia Protocol Stop: 06/21/21 20:18 Enoxaparin Sodium (Enoxaparin Inj 40 Mg/0.4 Ml Syr) 40 mg SQ Q24H [facility] Stop: 06/21/21 20:59 Last Admin: 05/26/21 20:21 Dose: 40 mg Documented by: Glucagon (Glucagon For Inj 1 Mg Vial) 1 mg SQ UD PRN; Protocol PRN Reason: Hypoglycemia Protocol Stop: 06/21/21 20:18 Glucose (Glucose 10 Tabs/Tube) 4 - 8 tabs PO UD PRN; Protocol PRN Reason: Hypoglycemia Protocol Stop: 06/21/21 20:18 Glucose (Glucose 40% Gel 15 Gm Tube) 15 - 30 gm PO UD PRN; Protocol PRN Reason: Hypoglycemia Protocol Stop: 06/21/21 20:18 Insulin Aspart (Insulin Aspart Per Unit) 0 units SC ACHS [facility] Stop: 06/21/21 20:59 Last Admin: 05/27/21 12:20 Dose: 3 units Documented by: Labetalol HCl (Labetalol Hcl Iv 5 Mg/Ml 20ml) 10 mg IV Q6H PRN PRN Reason: Hypertension Stop: 06/21/21 13:21 Last Admin: 05/22/21 21:37 Dose: 10 mg Documented by: Levothyroxine Sodium (Levothyroxine Sodium 50 Mcg Tablet) 50 mcg PO DAILYBB [facility] Stop: 06/22/21 06:29 Last Admin: 05/27/21 05:59 Dose: 50 mcg Documented by: Losartan Potassium (Losartan Potassium 50 Mg Tab) 50 mg PO QAM [facility] Stop: 06/22/21 08:59 Last Admin: 05/27/21 08:46 Dose: 50 mg Documented by: Magnesium Hydroxide (Magnesium Hydroxide Susp 30 Ml Udc) 30 ml PO Q12H PRN PRN Reason: Constipation Stop: 06/21/21 20:18 Miscellaneous (Carbohydrates For Hypoglycemia ) 15 - 30 gm PO UD PRN PRN Reason: Hypoglycemia Protocol Stop: 06/21/21 20:18 Pantoprazole Sodium (Pantoprazole 40 Mg Tab) 40 mg PO DAILYBB [facility] Stop: 06/22/21 06:29 Last Admin: 05/27/21 05:59 Dose: 40 mg Documented by: Phenytoin Sodium (Phenytoin Sodium Er 100 Mg Cap) 200 mg PO BID [facility] Stop: 06/21/21 20:59 Last Admin: 05/27/21 10:15 Dose: 200 mg Documented by: Rosuvastatin Calcium (Rosuvastatin Calcium 20 Mg Tab) 40 mg PO HS [facility] Stop: 06/21/21 20:59 Last Admin: 05/26/21 20:23 Dose: 40 mg Documented by: Vitamin D (Cholecalciferol 5,000 Units 125 Mcg Tab) 5,000 units PO DAILY [facility] Stop: 06/22/21 08:59 Last Admin: 05/27/21 08:47 Dose: 5,000 units Documented by: Medications Administered Current Inpatient Medications Acetaminophen (Acetaminophen 325 Mg Tab) 650 mg PO Q4H PRN PRN Reason: Pain or Fever Stop: 06/21/21 20:18 Last Admin: 05/26/21 19:37 Dose: 650 mg Documented by: Amlodipine Besylate (Amlodipine Besylate 5 Mg Tab) 2.5 mg PO QAM [facility] Stop: 06/23/21 18:14 Last Admin: 05/27/21 08:47 Dose: 2.5 mg Documented by: Amoxicillin/Clavulanate Potassium (Amoxicillin/Clavulanate 875 Mg Tab) 1 tab PO BIDM [facility]; Protocol Stop: 06/01/21 20:59 Last Admin: 05/27/21 08:47 Dose: 1 tab Documented by: Aspirin (Aspirin 81 Mg Ectab) 81 mg PO DAILY [facility] Stop: 06/21/21 20:59 Last Admin: 05/27/21 08:47 Dose: 81 mg Documented by: Dextrose (Dextrose 50% 50 Ml Syringe) 25 - 50 ml IV UD PRN; Protocol PRN Reason: Hypoglycemia Protocol Stop: 06/21/21 20:18 Enoxaparin Sodium (Enoxaparin Inj 40 Mg/0.4 Ml Syr) 40 mg SQ Q24H [facility] Stop: 06/21/21 20:59 Last Admin: 05/26/21 20:21 Dose: 40 mg Documented by: Glucagon (Glucagon For Inj 1 Mg Vial) 1 mg SQ UD PRN; Protocol PRN Reason: Hypoglycemia Protocol Stop: 06/21/21 20:18 Glucose (Glucose 10 Tabs/Tube) 4 - 8 tabs PO UD PRN; Protocol PRN Reason: Hypoglycemia Protocol Stop: 06/21/21 20:18 Glucose (Glucose 40% Gel 15 Gm Tube) 15 - 30 gm PO UD PRN; Protocol PRN Reason: Hypoglycemia Protocol Stop: 06/21/21 20:18 Insulin Aspart (Insulin Aspart Per Unit) 0 units SC ACHS [facility] Stop: 06/21/21 20:59 Last Admin: 05/27/21 12:20 Dose: 3 units Documented by: Labetalol HCl (Labetalol Hcl Iv 5 Mg/Ml 20ml) 10 mg IV Q6H PRN PRN Reason: Hypertension Stop: 06/21/21 13:21 Last Admin: 05/22/21 21:37 Dose: 10 mg Documented by: Levothyroxine Sodium (Levothyroxine Sodium 50 Mcg Tablet) [facility]: 06/22/21 06:29 Last Admin: 05/27/21 05:59 Dose: 50 mcg Documented by: Losartan Potassium (Losartan Potassium 50 Mg Tab) 50 mg PO QAM [facility] Stop: 06/22/21 08:59 Last Admin: 05/27/21 08:46 Dose: 50 mg Documented by: Magnesium Hydroxide (Magnesium Hydroxide Susp 30 Ml Udc) 30 ml PO Q12H PRN PRN Reason: Constipation Stop: 06/21/21 20:18 Miscellaneous (Carbohydrates For Hypoglycemia ) 15 - 30 gm PO UD PRN PRN Reason: Hypoglycemia Protocol Stop: 06/21/21 20:18 Pantoprazole Sodium (Pantoprazole 40 Mg Tab) 40 mg PO DAILYBB [facility] Stop: 06/22/21 06:29 Last Admin: 05/27/21 05:59 Dose: 40 mg Documented by: Phenytoin Sodium (Phenytoin Sodium Er 100 Mg Cap) 200 mg PO BID [facility] Stop: 06/21/21 20:59 Last Admin: 05/27/21 10:15 Dose: 200 mg Documented by: Rosuvastatin Calcium (Rosuvastatin Calcium 20 Mg Tab) 40 mg PO HS [facility] Stop: 06/21/21 20:59 Last Admin: 05/26/21 20:23 Dose: 40 mg Documented by: Vitamin D (Cholecalciferol 5,000 Units 125 Mcg Tab) 5,000 units PO DAILY [facility] Stop: 06/22/21 08:59 Last Admin: 05/27/21 08:47 Dose: 5,000 units Documented by:
--- NOTE | 2021-05-27 17:21 | Emergency Department Note ---
Impression & Plan Hypertensive urgency, History of CVA (cerebrovascular accident), Hypokalemia, Headache, Hyperglycemia ED Provider Note Date of service 05/07/2021 CHIEF COMPLAINT: Altered mental status HISTORY OF PRESENT ILLNESS: This 76-year-old female patient presents to the emergency department with complaints of altered mental status. Patient has suffered a stroke in the past but lately has become much more confused, particularly in the evenings. Apparently the [id number] has contacted the primary care physician's office regarding the issue who then called the ambulance. She was seen by the [facility] and diagnosed with a UTI, placed on Keflex approximately a week ago. She is largely bedbound and does not walk well. She is currently concerned about her hggsmmae-iy-sns not marrying her son and that she may be kicked out of her home. She denies any vomiting, chest pain, cough, abdominal pain. She states she did not take her medications this morning. She denies any recent falls. EMS gave the bulk of the report as patient was not able to give any details however was able to get the [id number] on the phone later in the visit. REVIEW OF SYSTEMS: Unable to get a full review of systems secondary to the patient's questionable reliability and and ability to answer questions in detail. ALLERGIES: see below MEDICATIONS: see below PMH: see below SOCIAL HISTORY: see below DDx: Infection, dehydration, metabolic abnormality, hypo/hyperglycemia, electrolyte disturbance, anemia, hypoxia, cardiac sources, intracerebral event, toxicologic, neurologic, as well as other pathologies. PHYSICAL EXAM: Vital signs reviewed. General: Chronically ill-appearing 76-year-old female, in no significant distress. Anxious HEENT: No scleral icterus, PERRLA, neck supple. Atraumatic. Dry mucous membranes. Cardiovascular: Regular rate and rhythm, no extra sounds. Pulmonary: Clear to auscultation bilaterally, normal work of breathing. Abdomen: Soft, nontender, nondistended, positive bowel sounds. Musculoskeletal: Atraumatic, no peripheral edema. Neurologic: Patient awake alert and oriented x 3, mildly dysarthric speech, contractures noted to the right upper and lower extremities with generalized deconditioning otherwise. Skin: Warm, dry, no rash EMERGENCY DEPARTMENT COURSE/MDM: This patient was evaluated and appeared to be in no significant distress. IV access was obtained and lab work was drawn. Pt was placed on the classroom monitor. She was hydrated with NSS. Lab work reveals a mild leukocytosis. UA is indicative of infection however is also contaminated and will be sent for culture. CT imaging of the head reveals no evidence of acute intracranial pathology however chronic encephalomalacia is noted from previous infarct. Otherwise work-up is reassuring. I did speak with the patient's wmlwkgsl-ar-wkv who stated she has been taking her medications with the exception of her dosing this morning. She will give a dose of her phenytoin today. Nonemergent transport was arranged to take the patient home and her son and jmizmbbb-ip-cdt will receive her. They felt comfortable with this plan. They will continue her Keflex as prescribed until the urine culture has resulted. They will be notified if a change in medications is necessary. They were encouraged to discuss the sundowning issue with the PCP and potentially seek a neurologic consultation as the patient has had a large stroke in the past. It would be difficult to manage the patient as an emergency doctor with her complicated history. They will follow-up as soon as possible with the PCP and return to the ED for worsening of symptoms or any medical concerns. MONITORING: An order for cardiac monitoring was placed and the patient is noted to be in a NSR at 70 beats per minute. RADIOLOGY: See below EKG: Normal sinus rhythm at 92 bpm. LVH with repolarization abnormality noted. ST segments now depressed in the lateral leads. Nonspecific T wave abnormality evident in the inferior leads. QT interval is 484 which is prolonged. No PVC, no PAC. DISPOSITION: Home Past Med/Surg History Medical History Anemia Carotid artery stenosis CKD (chronic kidney disease), stage III Depression Diabetes mellitus Diabetes mellitus, type II Diabetic nephropathy History of CVA (cerebrovascular accident) hx L MCA CVA with RHP 2001 HTN (hypertension) Hyperlipidemia Hypothyroid Obesity Overactive bladder Seizure disorder s/p CVA TIA (transient ischemic attack) Surgical History History of appendectomy Family History Father Cancer Brother Myocardial infarction Social History Smoking Status: Never smoker Hx Alcohol Use: No Hx Substance Use: No Preferred Language: Setswana Communication Ability: Effective 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 Beliefs That Will Affect Care: None Current Living Situation: Family How many Children do You have: 4 Feels Safe at Home: Yes Assistive Devices: Walker Allergies Allergies Allergy/AdvReac Type Severity Reaction Status Date / Time No Known Allergies Allergy Unknown Verified 12/15/19 11:45 Home Meds Home Medications Medication Instructions Recorded Confirmed metformin 500 mg tablet,extended 1,000 mg PO DAILY 04/15/19 05/22/21 release 24 hr rosuvastatin 40 mg tablet 40 mg PO HS 04/15/19 05/22/21 aspirin 81 mg chewable tablet 81 mg PO DAILY 12/15/19 05/22/21 cholecalciferol (vitamin D3) 125 125 mcg PO DAILY 12/15/19 05/22/21 mcg (5,000 unit) tablet (Vitamin D3) pantoprazole 40 mg tablet,delayed 40 mg PO DAILYBB 05/07/21 05/22/21 release phenytoin sodium extended 100 mg 200 mg PO BID 05/07/21 05/22/21 capsule Previous Rx's Medication Instructions Recorded levothyroxine 75 mcg tablet 50 mcg PO DAILYBB #0 tab 12/21/19 Lactobacillus acidoph-L.bulgaricus 1 tab PO BID #30 tab 05/28/21 1 million cell chewable tablet (Lactinex) amlodipine 5 mg tablet (Norvasc) 2.5 mg PO QAM #15 tab 05/28/21 amoxicillin 875 mg-potassium 1 tab PO BIDM #6 tab 05/28/21 clavulanate 125 mg tablet (Augmentin) losartan 50 mg tablet 50 mg PO QAM #30 tab 05/28/21 Results & Data (ED) Home Medications Current Medication List: was personally reviewed by me Laboratory Data Attestation: I reviewed the patient's lab results. Result diagrams: 05/27/21 07:10 05/27/21 07:10 Lab Results 05/22/21 05/22/21 05/22/21 Range/Units 10:45 10:45 10:45 WBC 7.43 (4.8-10.8) K/uL RBC 4.63 (4.2-5.4) M/uL Hgb 13.0 (12.0-16.0) g/dL Hct 41.2 (37-47) % MCV 89.0 (80-100) fL MCH 28.1 (25-34) pg MCHC 31.6 L (32-36) g/dL RDW Std Deviation 45.8 (36.4-46.3) fL RDW Coeff of Maurice 14.0 (11.5-14.5) % Plt Count 218 (130-400) K/uL MPV 9.3 (7.4-10.4) fL Immature Gran % (Auto) 0.3 % Neut % (Auto) 60.7 % Lymph % (Auto) 28.9 % [place] % (Auto) 6.7 % Eos % (Auto) 3.1 % Baso % (Auto) 0.3 % Neut # (Auto) 4.51 (1.4-6.5) K/uL Lymph # (Auto) 2.15 (1.2-3.4) K/uL [place] # (Auto) 0.50 (0.11-0.59) K/uL Eos # (Auto) 0.23 (0-0.5) K/uL Baso # (Auto) 0.02 (0-0.2) K/uL Immature Gran # (Auto) 0.02 (0.00-0.02) K/uL ESR 48 H (0-30) mm/hr Sodium 139 (136-145) mmol/L Potassium 3.3 L (3.5-5.1) mmol/L Chloride 103 (98-107) mmol/L Carbon Dioxide 29 (21-32) mmol/L Anion Gap 7.0 (3-11) BUN 12 (7-18) mg/dl Creatinine 0.82 (0.6-1.2) mg/dl Est Cr Clr Drug Dosing 57.0 ml/min Est GFR ( Amer) 81.1 ml/min Est GFR (Non-Af Amer) 70.0 ml/min BUN/Creatinine Ratio 15.0 (10-20) Glucose 144 H (70-99) mg/dl Calcium 9.1 (8.5-10.1) mg/dl Magnesium (1.8-2.4) mg/dl Total Bilirubin 0.2 (0.2-1) mg/dl AST 26 (15-37) U/L ALT 35 (12-78) Alkaline Phosphatase 93 (45-117) U/L Total Protein 7.8 (6.4-8.2) gm/dl Albumin 3.4 (3.4-5.0) gm/dl Globulin 4.4 H (2.5-4.0) gm/dl Albumin/Globulin Ratio 0.8 L (0.9-2) TSH (0.300-4.500) uIu/ml 05/22/21 Range/Units 10:45 WBC (4.8-10.8) K/uL RBC (4.2-5.4) M/uL Hgb (12.0-16.0) g/dL Hct (37-47) % MCV (80-100) fL MCH (25-34) pg MCHC (32-36) g/dL RDW Std Deviation (36.4-46.3) fL RDW Coeff of Maurice (11.5-14.5) % Plt Count (130-400) K/uL MPV (7.4-10.4) fL Immature Gran % (Auto) % Neut % (Auto) % Lymph % (Auto) % [place] % (Auto) % Eos % (Auto) % Baso % (Auto) % Neut # (Auto) (1.4-6.5) K/uL Lymph # (Auto) (1.2-3.4) K/uL [place] # (Auto) (0.11-0.59) K/uL Eos # (Auto) (0-0.5) K/uL Baso # (Auto) (0-0.2) K/uL Immature Gran # (Auto) (0.00-0.02) K/uL ESR (0-30) mm/hr Sodium (136-145) mmol/L Potassium (3.5-5.1) mmol/L Chloride (98-107) mmol/L Carbon Dioxide (21-32) mmol/L Anion Gap (3-11) BUN (7-18) mg/dl Creatinine (0.6-1.2) mg/dl Est Cr Clr Drug Dosing ml/min Est GFR ( Amer) ml/min Est GFR (Non-Af Amer) ml/min BUN/Creatinine Ratio (10-20) Glucose (70-99) mg/dl Calcium (8.5-10.1) mg/dl Magnesium 1.6 L (1.8-2.4) mg/dl Total Bilirubin (0.2-1) mg/dl AST (15-37) U/L ALT (12-78) Alkaline Phosphatase (45-117) U/L Total Protein (6.4-8.2) gm/dl Albumin (3.4-5.0) gm/dl Globulin (2.5-4.0) gm/dl Albumin/Globulin Ratio (0.9-2) TSH 2.350 (0.300-4.500) uIu/ml Administered Medications Discontinued Medications Acetaminophen (Acetaminophen 325 Mg Tab) 650 mg PO Q4H PRN PRN Reason: Pain or Fever Stop: 06/21/21 20:18 Last Admin: 05/26/21 19:37 Dose: 650 mg Documented by: [id number] Amlodipine Besylate (Amlodipine Besylate 5 Mg Tab) [facility] [place] [place]: 06/23/21 18:14 Last Admin: 05/28/21 08:06 Dose: 2.5 mg Documented by: [id number] Admin: 05/27/21 08:47 Dose: 2.5 mg Documented by: [id number] Admin: 05/26/21 08:12 Dose: 2.5 mg Documented by: [id number] Admin: 05/25/21 09:03 Dose: 2.5 mg Documented by: [id number] Admin: 05/24/21 19:43 Dose: 2.5 mg Documented by: [id number] Amoxicillin/Clavulanate Potassium (Amoxicillin/Clavulanate 875 Mg Tab) 1 tab [facility] [place] [facility] [place] Protocol Stop: 06/01/21 20:59 Last Admin: 05/28/21 08:05 Dose: 1 tab Documented by: [id number] Admin: 05/27/21 17:22 Dose: 1 tab Documented by: [id number] Admin: 05/27/21 08:47 Dose: 1 tab Documented by: [id number] Admin: 05/26/21 17:13 Dose: 1 tab Documented by: [id number] Admin: 05/26/21 08:13 Dose: 1 tab Documented by: [id number] Admin: 05/25/21 16:13 Dose: 1 tab Documented by: [id number] Admin: 05/25/21 08:25 Dose: 1 tab Documented by: [id number] Admin: 05/24/21 17:25 Dose: 1 tab Documented by: [id number] Admin: 05/24/21 08:29 Dose: 1 tab Documented by: [id number] Admin: 05/23/21 17:43 Dose: 1 tab Documented by: [id number] Admin: 05/23/21 09:04 Dose: 1 tab Documented by: [id number] Admin: 05/22/21 21:20 Dose: 1 tab Documented by: [id number] Aspirin (Aspirin 81 Mg Ectab) 81 mg PO DAILY AMAURI Stop: 06/21/21 20:59 Last Admin: 05/28/21 08:06 Dose: 81 mg Documented by: [id number] Admin: 05/27/21 08:47 Dose: 81 mg Documented by: [id number] Admin: 05/26/21 08:12 Dose: 81 mg Documented by: [id number] Admin: 05/25/21 08:23 Dose: 81 mg Documented by: [id number] Admin: 05/24/21 08:29 Dose: 81 mg Documented by: [id number] Admin: 05/23/21 09:05 Dose: 81 mg Documented by: [id number] Admin: 05/22/21 21:20 Dose: 81 mg Documented by: [id number] Enoxaparin Sodium (Enoxaparin Inj 40 Mg/0.4 Ml Syr) 40 mg SQ Q24H AMAURI Stop: 06/21/21 20:59 Last Admin: 05/27/21 21:58 Dose: 40 mg Documented by: [id number] Admin: 05/26/21 20:21 Dose: 40 mg Documented by: [id number] Admin: 05/25/21 20:05 Dose: 40 mg Documented by: [id number] Admin: 05/24/21 20:14 Dose: 40 mg Documented by: [id number] Admin: 05/23/21 21:23 Dose: 40 mg Documented by: [id number] Admin: 05/22/21 21:20 Dose: 40 mg Documented by: [id number] Insulin Aspart (Insulin Aspart Per Unit) 0 units SC ACHS AMAURI Stop: 06/21/21 20:59 Last Admin: 05/28/21 12:08 Dose: 4 units Documented by: [id number] Cosigned by: [id number] Admin: 05/28/21 08:07 Dose: 6 units Documented by: [id number] Cosigned by: [id number] Admin: 05/27/21 22:19 Dose: Not Given Documented by: [id number] Admin: 05/27/21 17:22 Dose: 6 units Documented by: [id number] Cosigned by: [id number] Admin: 05/27/21 12:20 Dose: 3 units Documented by: [id number] Cosigned by: [id number] Admin: 05/27/21 08:43 Dose: 5 units Documented by: [id number] Cosigned by: [id number] Admin: 05/26/21 20:21 Dose: Not Given Documented by: [id number] Admin: 05/26/21 17:12 Dose: 5 units Documented by: [id number] Cosigned by: [id number] Admin: 05/26/21 12:07 Dose: 7 units Documented by: [id number] Cosigned by: [id number] Admin: 05/26/21 08:11 Dose: 5 units Documented by: [id number] Cosigned by: [id number] Admin: 05/25/21 20:05 Dose: Not Given Documented by: [id number] Admin: 05/25/21 17:21 Dose: 6 units Documented by: [id number] Cosigned by: [id number] Admin: 05/25/21 12:38 Dose: 4 units Documented by: [id number] Cosigned by: [id number] Admin: 05/25/21 08:23 Dose: 3 units Documented by: [id number] Cosigned by: [id number] Admin: 05/24/21 20:14 Dose: Not Given Documented by: [id number] Admin: 05/24/21 17:23 Dose: Not Given Documented by: [id number] Admin: 05/24/21 13:15 Dose: 5 units Documented by: [id number] Cosigned by: [id number] Admin: 05/24/21 08:36 Dose: 3 units Documented by: [id number] Cosigned by: [id number] Admin: 05/23/21 21:24 Dose: Not Given Documented by: [id number] Admin: 05/23/21 17:43 Dose: 3 units Documented by: [id number] Cosigned by: [id number] Admin: 05/23/21 12:44 Dose: 4 units Documented by: [id number] Cosigned by: [id number] Admin: 05/23/21 09:14 Dose: 5 units Documented by: [id number] Cosigned by: [id number] Admin: 05/22/21 21:37 Dose: 3 units Documented by: [id number] Cosigned by: [id number] Labetalol HCl (Labetalol Hcl Iv 5 Mg/Ml 20ml) 10 mg IV NOW STA Stop: 05/22/21 10:29 Last Admin: 05/22/21 10:43 Dose: 10 mg Documented by: [id number] Cosigned by: [id number] Labetalol HCl (Labetalol Hcl Iv 5 Mg/Ml 20ml) 10 mg IV Q6H PRN PRN Reason: Hypertension Stop: 06/21/21 13:21 Last Admin: 05/22/21 21:37 Dose: 10 mg Documented by: [id number] Cosigned by: [id number] Levothyroxine Sodium (Levothyroxine Sodium 50 Mcg Tablet) [facility] Stop: 06/22/21 06:29 Last Admin: 05/28/21 06:35 Dose: 50 mcg Documented by: [id number] Admin: 05/27/21 05:59 Dose: 50 mcg Documented by: [id number] Admin: 05/26/21 05:40 Dose: 50 mcg Documented by: [id number] Admin: 05/25/21 05:40 Dose: 50 mcg Documented by: [id number] Admin: 05/24/21 06:07 Dose: 50 mcg Documented by: [id number] Admin: 05/23/21 06:33 Dose: 50 mcg Documented by: [id number] Losartan Potassium (Losartan Potassium 25 Mg Tab) 25 mg PO NOW STA Stop: 05/22/21 11:08 Last Admin: 05/22/21 12:15 Dose: 25 mg Documented by: [id number] Losartan Potassium (Losartan Potassium 25 Mg Tab) 25 mg PO ONE ONE Stop: 05/22/21 13:46 Last Admin: 05/22/21 16:08 Dose: 25 mg Documented by: [id number] Losartan Potassium (Losartan Potassium 50 Mg Tab) 50 mg PO [facility] Stop: 06/22/21 08:59 Last Admin: 05/28/21 08:06 Dose: 50 mg Documented by: [id number] Admin: 05/27/21 08:46 Dose: 50 mg Documented by: [id number] Admin: 05/26/21 08:12 Dose: 50 mg Documented by: [id number] Admin: 05/25/21 09:03 Dose: 50 mg Documented by: [id number] Admin: 05/24/21 08:29 Dose: 50 mg Documented by: [id number] Admin: 05/23/21 09:04 Dose: 50 mg Documented by: [id number] Pantoprazole Sodium (Pantoprazole 40 Mg Tab) 40 mg PO DAILYBB [facility] Stop: 06/22/21 06:29 Last Admin: 05/28/21 06:35 Dose: 40 mg Documented by: [id number] Admin: 05/27/21 05:59 Dose: 40 mg Documented by: [id number] Admin: 05/26/21 05:40 Dose: 40 mg Documented by: [id number] Admin: 05/25/21 05:39 Dose: 40 mg Documented by: [id number] Admin: 05/24/21 06:07 Dose: 40 mg Documented by: [id number] Admin: 05/23/21 06:33 Dose: 40 mg Documented by: [id number] Phenytoin Sodium (Phenytoin Sodium Er 100 Mg Cap) 200 mg PO BID [facility] Stop: 06/21/21 20:59 Last Admin: 05/28/21 08:05 Dose: 200 mg Documented by: [id number] Admin: 05/27/21 21:58 Dose: 200 mg Documented by: [id number] Admin: 05/27/21 10:15 Dose: 200 mg Documented by: [id number] Admin: 05/26/21 20:23 Dose: 200 mg Documented by: [id number] Admin: 05/26/21 08:12 Dose: 200 mg Documented by: [id number] Admin: 05/25/21 20:06 Dose: 200 mg Documented by: [id number] Admin: 05/25/21 08:24 Dose: 200 mg Documented by: [id number] Admin: 05/24/21 20:15 Dose: 200 mg Documented by: [id number] Admin: 05/22/21 21:21 Dose: 200 mg Documented by: [id number] Potassium Chloride (Potassium Chloride Crtab 20 Meq Tabcr) 40 meq PO NOW STA Stop: 05/22/21 11:34 Last Admin: 05/22/21 12:15 Dose: 40 meq Documented by: [id number] Potassium Chloride (Potassium Chloride Crtab 20 Meq Tabcr) 40 meq PO NOW STA Stop: 05/27/21 08:26 Last Admin: 05/27/21 08:47 Dose: 40 meq Documented by: [id number] Potassium Chloride (Potassium Chloride Crtab 20 Meq Tabcr) 20 meq PO NOW STA Stop: 05/28/21 11:57 Last Admin: 05/28/21 12:08 Dose: 20 meq Documented by: [id number] Rosuvastatin Calcium (Rosuvastatin Calcium 20 Mg Tab) 40 mg PO HS [facility] Stop: 06/21/21 20:59 Last Admin: 05/27/21 21:58 Dose: 40 mg Documented by: [id number] Admin: 05/26/21 20:23 Dose: 40 mg Documented by: [id number] Admin: 05/25/21 20:06 Dose: 40 mg Documented by: [id number] Admin: 05/24/21 20:15 Dose: 40 mg Documented by: [id number] Admin: 05/23/21 21:23 Dose: 40 mg Documented by: [id number] Admin: 05/22/21 21:21 Dose: 40 mg Documented by: [id number] Vitamin D (Cholecalciferol 5,000 Units 125 Mcg Tab) 5,000 units PO DAILY [facility] Stop: 06/22/21 08:59 Last Admin: 05/28/21 08:05 Dose: 5,000 units Documented by: [id number] Admin: 05/27/21 08:47 Dose: 5,000 units Documented by: [id number] Admin: 05/26/21 08:12 Dose: 5,000 units Documented by: [id number] Admin: 05/25/21 09:04 Dose: 5,000 units Documented by: [id number] Admin: 05/24/21 08:30 Dose: 5,000 units Documented by: [id number] Admin: 05/23/21 09:05 Dose: 5,000 units Documented by: [id number] Imaging Data Radiologist's Impression: CT head/brain wo con CLINICAL HISTORY: 76 years-old Female with AMS. Acutely altered mental status TECHNIQUE: Multiple axial CT images of the head were obtained without contrast. A dose lowering technique was utilized adhering to the principles of ALARA. CT DOSE: 537.48 mGy.cm COMPARISON: CT head 12/15/2019. FINDINGS: No acute intracranial hemorrhage, midline shift, intracranial mass, hydrocephalus, territorial ischemia or abnormal extra-axial collection. Encephalomalacia from chronic large left MCA infarct. Ex vacuo ventriculomegaly of the left lateral ventricle. Age-related involutional changes. White matter hypodensities suggest chronic microvascular ischemic disease. Motion degraded study. Senescent calcifications of the basal ganglia. The calvarium is intact. The mastoid air cells and middle ear cavities are clear. Small left maxillary sinus air-fluid level. Unremarkable soft tissues and orbits. IMPRESSION: 1. No acute intracranial abnormality. 2. Encephalomalacia associated with large chronic left MCA infarct redemonstrated. ACT 112: Negative or not required by law. The above report was generated using voice recognition software. It may contain grammatical, syntax or spelling errors. Electronically signed by: Madi Gardner M.D. 05/07/2021 1:28 PM Dictated:05/07/21 1323 Transcribed: 05/07/21 1323 XR chest 1V portable CLINICAL HISTORY: weakness. Evaluate cardiopulmonary status COMPARISON STUDY: 12/15/2019 TECHNIQUE: 1 view of the chest FINDINGS: Single frontal view of the chest demonstrates the heart size to again be enlarged. The lungs are clear of alveolar opacities. There is no evidence for pleural effusion. There is no evidence for vascular congestion. There is no acute osseous pathology. IMPRESSION: No acute cardiopulmonary disease. ACT 112: Negative or not required by law. Electronically signed by: Terrance Dempsey M.D. 05/07/2021 12:58 PM Dictated:05/07/21 1257 Transcribed: 05/07/21 1257 Blood Pressure Blood Pressure Findings: Normal blood pressure Blood Pressure Disposition: did not require urgent referral Discharge Plan Visit Data Chief Complaint: Headache Stated Complaint: HEADACHE ED Provider: Marco A Srivastava ED Midlevel Provider: Antonia Granados Discharge Problem: Hypertensive urgency, History of CVA (cerebrovascular accident), Hypokalemia, Headache, Hyperglycemia Patient Disposition: Admitted As Inpatient Condition: Fair Discharge Instructions Interventions: ED Discharge Assessment Last Done: 05/22/21 14:30 Discharge Problem: Headache Qualifiers: Headache type: unspecified Headache chronicity pattern: acute headache Intractability: not intractable Qualified Code(s): R51.9 - Headache, unspecified
[2021-05-27] MEDS: ROSUVASTATIN CALCIUM 20 MG TAB PO SCH (21:58)
[2021-05-27] MEDS: ENOXAPARIN INJ 40 MG/0.4 ML SYR SQ SCH (21:58)
[2021-05-28] MEDS: LEVOTHYROXINE SODIUM 50 MCG TABLET PO SCH (06:35)
[2021-05-28] MEDS: PANTOprazole 40 MG TAB PO SCH (06:35)
[2021-05-28] MEDS: PHENYTOIN SODIUM ER 100 MG CAP PO SCH (08:05)
[2021-05-28] MEDS: AMOXICILLIN/CLAVULANATE 875 MG TAB PO SCH (08:05)
[2021-05-28] MEDS: CHOLECALCIFEROL 5,000 UNITS 125 MCG TAB PO SCH (08:05)
[2021-05-28] MEDS: amLODIPine BESYLATE 5 MG TAB PO SCH (08:06)
[2021-05-28] MEDS: LOSARTAN POTASSIUM 50 MG TAB PO SCH (08:06)
[2021-05-28] MEDS: ASPIRIN 81 MG ECTAB PO SCH (08:06)
[2021-05-28] MEDS: INSULIN ASPART PER UNIT SC SCH ×2 (08:07→12:08)
--- NOTE | 2021-05-28 11:55 | Hospitalist Progress Note ---
Date of Service May 28, 2021 Assessment & Plan (1) Headache: Plan: Patient is 76 y/o F with PMH left MCA CVA with Right hemiplegia, DM II, HTN, HLD, CKD III, hypothyroidism presented to ER with c/o intermittent JAMISON x 1 week, and intermittent confusion. Blurry vision x 1-2 months. In ER patient afebrile, P: 85, BP: 203/115, 97% on room air. No leukocytosis, K: 3.3, ESR: 48 CT head acute left maxillary sinusitis, no other acute findings. No signs of acute CVA on CT head. Patient without tenderness over temporal region, less likely temporal arteritis. JAMISON may be related to hypertension, sinusitis MRI of the head showed age-related involutional changes with mild to moderate chronic microvascular ischemic disease and old left MCA territory infarct Denies any more headache Change in mental status Reports of increased confusion and hallucinations at night. Sounds consistent with delirium Dilantin level is mildly elevated at 26 and the repeat level did not show any improvement Dilantin is on hold for now and will check level tomorrow If improving will restart-Dilantin was 25.2 yesterday and will check it again today and likely restart Dilantin from today Dilantin has been restarted from yesterday Change in mental status has resolved-she is back to her baseline No more confusion She will be discharged home this afternoon She has had PT and OT evaluation and will require 24-hour care at home SINUSITIS Pt denies fever/chills, rhinorrhea, cough, facial tenderness CT Head: Acute left maxillary sinusitis Start Augmentin -denies any sinus pain and/or pressure We will continue Augmentin for a total of 10 days (2) HTN (hypertension): Plan: Initially hypertensive in ER with BP 203/115. Given labetalol 10mg IV, losartan 25mg po with BP down to 158/80 Pt did not have am meds Increase losartan to 50mg daily Labetalol prn HTN Blood pressure remains on the upper side at 181/87 today Has been on as needed blood pressure medications Her blood pressure is stable History of left MCA stroke with right hemiplegia No acute symptoms (3) Hypokalemia: Plan: K: 3.3 In ER given 40meq KCl po Magnesium level pending Monitor and replace-has been normalized (4) Diabetes mellitus, type II: Plan: A1c: 5.6 in 11/12/2020 Hold home meds NovoLog sliding scale per protocol A1c in a.m.-6.2 (5) CKD (chronic kidney disease), stage III: Plan: Cr: 0.8 Monitor renal functions, avoid nephrotoxic agents when possible (6) Seizure disorder: Plan: Denies recent seizure Dilantin level pending Continue Dilantin-on hold for today Dilantin level is pending for today-we will restart if the level has been falling She is back on her Dilantin Remains stable-Dilantin will be continued (7) Hypothyroid: Plan: TSH pending-2.840 Continue levothyroxine- DVT Prophylaxis -Lovenox SQ Full Code as per discussion with pt Follows with Dr Jones for routine care Try to call family members without any response Discussed with the sister and she will be discharged home this afternoon Admission and Anticipated Discharge Date Admission Date: May 22, 2021 Subjective 05/23/2021 The patient was seen and examined in medical telemetry unit She has been feeling much better since admission and denies any significant symptoms Denies any more hallucinations and/or acute confusion 05/24/2021 The patient was seen and examined in medical telemetry unit She has been feeling much better today and denies any significant symptoms She seems to be at her baseline 05/25/2021 The patient was seen and examined in medical telemetry unit She has been stable and back to her normal baseline Has been eating and drinking well denies any significant symptoms 05/26/2021 The patient was seen and examined in medical telemetry unit She has been feeling much better and denies any significant symptoms She has been eating and drinking well 05/27/2021 The patient was seen and examined in medical telemetry unit She has been feeling better and she is back to her baseline Does not want to go home today and says that she will go home tomorrow 05/28/2021 The patient was seen and examined in medical telemetry unit She has been feeling much better denies any significant symptoms She is bedbound and complains to have minimal discomfort involving the abdomen without any nausea or vomiting Review of Systems Review of Systems: All systems reviewed and are unremarkable except as noted below Neurologic: Has right hemiparesis Physical Exam Physical Exam: Lying in bed comfortably Constitutional: + ill appearing and average body habitus Eyes: PERRL, conjunctivae normal, anicteric sclerae ENMT: external ear and nose normal, oropharynx normal Neck: trachea midline, no thyromegaly Respiratory: no respiratory distress Auscultation: lungs clear to auscultation bilaterally Cardiovascular: Rate/Rhythm: regular rate and regular rhythm Heart Sounds: normal S1 and normal S2; no murmur Extremities: no edema (Trace edema bilaterally) Gastrointestinal (Abdomen): Inspection/Auscultation: normal bowel sounds; abdomen not distended Percussion/Palpation: abdomen soft; abdomen nontender Musculoskeletal: No acute arthritis in any joint Neurologic: Alert and awake, generally weak, history of left MCA stroke with right hemiplegia Lymphatic: no cervical or axillary lymphadenopathy Results & Data Results & Data ([facility]) Vital Signs (Past 12 Hours) Vital Signs Temp Pulse Pulse Resp BP Pulse Ox 05/28/21 11:00 36.6 C 68 16 137/80 96 05/28/21 07:43 36.4 C L 69 20 162/80 H 98 05/28/21 07:16 64 05/28/21 03:45 36.5 C 71 20 155/84 H 98 Medications Administered Current Inpatient Medications Acetaminophen (Acetaminophen 325 Mg Tab) 650 mg PO Q4H PRN PRN Reason: Pain or Fever Stop: 06/21/21 20:18 Last Admin: 05/26/21 19:37 Dose: 650 mg Documented by: Amlodipine Besylate (Amlodipine Besylate 5 Mg Tab) 2.5 mg PO QAM [facility] Stop: 06/23/21 18:14 Last Admin: 05/28/21 08:06 Dose: 2.5 mg Documented by: Amoxicillin/Clavulanate Potassium (Amoxicillin/Clavulanate 875 Mg Tab) 1 tab PO BIDM [facility]; Protocol Stop: 06/01/21 20:59 Last Admin: 05/28/21 08:05 Dose: 1 tab Documented by: Aspirin (Aspirin 81 Mg Ectab) 81 mg PO DAILY [facility] Stop: 06/21/21 20:59 Last Admin: 05/28/21 08:06 Dose: 81 mg Documented by: Dextrose (Dextrose 50% 50 Ml Syringe) 25 - 50 ml IV UD PRN; Protocol PRN Reason: Hypoglycemia Protocol Stop: 06/21/21 20:18 Enoxaparin Sodium (Enoxaparin Inj 40 Mg/0.4 Ml Syr) 40 mg SQ Q24H [facility] Stop: 06/21/21 20:59 Last Admin: 05/27/21 21:58 Dose: 40 mg Documented by: Glucagon (Glucagon For Inj 1 Mg Vial) 1 mg SQ UD PRN; Protocol PRN Reason: Hypoglycemia Protocol Stop: 06/21/21 20:18 Glucose (Glucose 10 Tabs/Tube) 4 - 8 tabs PO UD PRN; Protocol PRN Reason: Hypoglycemia Protocol Stop: 06/21/21 20:18 Glucose (Glucose 40% Gel 15 Gm Tube) 15 - 30 gm PO UD PRN; Protocol PRN Reason: Hypoglycemia Protocol Stop: 06/21/21 20:18 Insulin Aspart (Insulin Aspart Per Unit) 0 units SC ACHS [facility] Stop: 06/21/21 20:59 Last Admin: 05/28/21 08:07 Dose: 6 units Documented by: Labetalol HCl (Labetalol Hcl Iv 5 Mg/Ml 20ml) 10 mg IV Q6H PRN PRN Reason: Hypertension Stop: 06/21/21 13:21 Last Admin: 05/22/21 21:37 Dose: 10 mg Documented by: Levothyroxine Sodium (Levothyroxine Sodium 50 Mcg Tablet) 50 mcg PO DAILYBB [facility] Stop: 06/22/21 06:29 Last Admin: 05/28/21 06:35 Dose: 50 mcg Documented by: Losartan Potassium (Losartan Potassium 50 Mg Tab) 50 mg PO QAM [facility] Stop: 06/22/21 08:59 Last Admin: 05/28/21 08:06 Dose: 50 mg Documented by: Magnesium Hydroxide (Magnesium Hydroxide Susp 30 Ml Udc) 30 ml PO Q12H PRN PRN Reason: Constipation Stop: 06/21/21 20:18 Miscellaneous (Carbohydrates For Hypoglycemia ) 15 - 30 gm PO UD PRN PRN Reason: Hypoglycemia Protocol Stop: 06/21/21 20:18 Pantoprazole Sodium (Pantoprazole 40 Mg Tab) 40 mg PO DAILYBB [facility] Stop: 06/22/21 06:29 Last Admin: 05/28/21 06:35 Dose: 40 mg Documented by: Phenytoin Sodium (Phenytoin Sodium Er 100 Mg Cap) 200 mg PO BID [facility] Stop: 06/21/21 20:59 Last Admin: 05/28/21 08:05 Dose: 200 mg Documented by: Rosuvastatin Calcium (Rosuvastatin Calcium 20 Mg Tab) 40 mg PO HS [facility] Stop: 06/21/21 20:59 Last Admin: 05/27/21 21:58 Dose: 40 mg Documented by: Vitamin D (Cholecalciferol 5,000 Units 125 Mcg Tab) 5,000 units PO DAILY [facility] Stop: 06/22/21 08:59 Last Admin: 05/28/21 08:05 Dose: 5,000 units Documented by:
[2021-05-28] MEDS ORDERED: POTASSIUM CHLORIDE CRTAB 20 MEQ TABCR PO STA (11:56)
--- NOTE | 2021-05-28 17:55 | Discharge Summary ---
Date of Service May 28, 2021 Admission HPI Per Admitting Provider Patient is 76 y/o F with PMH left MCA CVA with hemiplegia, DM II, HTN, HLD, CKD III, hypothyroidism presented to ER with c/o JAMISON, confusion. Patient reports past week has been having intermittent headache located mid forehead. She reports its dull aching and usually lasts approximately 30 minutes and self resolves. Patient states she has has slight headache currently. Patient also reports has been having some intermittent confusion. She does not feel she is confused currently. Patient also reports blurry vision, seems more prevalent with light and improves with darkness for the past 1 to 2 months. She reports has appointment with eye doctor however is not for several months. Patient has been using wheelchair and reports does not ambulate. ER doctor reported that family voiced concern that patient is having hallucinations at nighttime. Patient reports lives with her son and several other people live in the household. Attempted to contact patient's son Keith, however no answer and voicemail box is not set up. Attempted to contact Bela Lemon, primary contact and no answer. Denies fever/chills, diaphoresis, N/V/D/C, facial discomfort, temporal discomfort, dizziness, syncope, vision changes, neck pain, CP, SOB, orthopnea, palpitations, cough, sore throat, choking, otalgia, rhinorrhea, abdominal pain, paresthesias, weakness, extremity weakness, extremity edema, rashes, urinary symptoms. In ER patient afebrile, P: 85, BP: 203/115, 97% on room air. No leukocytosis, K: 3.3, ESR: 48, CT head acute left maxillary sinusitis, no other acute findings. In ER was given labetalol 10 mg IV, losartan 25 mg p.o. with BP down to 158/80. Admission Exam Per Admitting Provider Physical Exam: General: no distress, WDWN Head: normocephalic, atraumatic Eyes: PERRL, EOM's intact, conjunctiva non-injected, anicteric ENT: normal inspection external ears, nose, mucous membranes moist, no temporal tenderness to palpation, no maxillary sinus tenderness to palpation Neck: supple, trachea midline Lungs: clear, no respiratory distress, no wheezing/rhonchi/rales CV: RRR, no murmur, no pretibial edema Abd: normal BS, soft, non-tender Ext: no cyanosis, no calf tenderness Neuro: Alert, oriented x 3, +slow responses with slurred speech, +right extremity weakness and contracture of right hand/fingers (chronic), no other focal deficits noted, normal affect Skin: warm, dry Principal Diagnosis Change in mental status, acute sinusitis, hypertension, possible Dilantin toxicity Discharge Exam Lying in bed comfortably Constitutional + ill appearing and average body habitus Eyes PERRL, conjunctivae normal, anicteric sclerae ENMT external ear and nose normal, oropharynx normal Neck trachea midline, no thyromegaly Respiratory no respiratory distress Auscultation: lungs clear to auscultation bilaterally Cardiovascular Rate/Rhythm: regular rate and regular rhythm Heart Sounds: normal S1 and normal S2; no murmur Extremities: no edema (Trace edema bilaterally) Gastrointestinal (Abdomen) Inspection/Auscultation: normal bowel sounds; abdomen not distended Percussion/Palpation: abdomen soft; abdomen nontender Lymphatic no cervical or axillary lymphadenopathy Discharge Data Allergies Allergy/AdvReac Type Severity Reaction Status Date / Time No Known Allergies Allergy Unknown Verified 12/15/19 11:45 Consultations 05/22/21 12:20 ED Decision to Admit Stat 05/22/21 14:16 Consult Psychiatry Routine Ordered Studies 05/22/21 10:28 CT head/brain wo con Stat 05/22/21 13:22 MR brain wo con Routine Hospital Course (1) Headache: Patient is 76 y/o F with PMH left MCA CVA with Right hemiplegia, DM II, HTN, HLD, CKD III, hypothyroidism presented to ER with c/o intermittent JAMISON x 1 week, and intermittent confusion. Blurry vision x 1-2 months. In ER patient afebrile, P: 85, BP: 203/115, 97% on room air. No leukocytosis, K: 3.3, ESR: 48 CT head acute left maxillary sinusitis, no other acute findings. No signs of acute CVA on CT head. Patient without tenderness over temporal region, less likely temporal arteritis. JAMISON may be related to hypertension, sinusitis MRI of the head showed age-related involutional changes with mild to moderate chronic microvascular ischemic disease and old left MCA territory infarct Denies any more headache Change in mental status Reports of increased confusion and hallucinations at night. Sounds consistent with delirium Dilantin level is mildly elevated at 26 and the repeat level did not show any improvement Dilantin is on hold for now and will check level tomorrow If improving will restart-Dilantin was 25.2 yesterday and will check it again today and likely restart Dilantin from today Dilantin has been restarted from yesterday Change in mental status has resolved-she is back to her baseline No more confusion She will be discharged home this afternoon She has had PT and OT evaluation and will require 24-hour care at home SINUSITIS Pt denies fever/chills, rhinorrhea, cough, facial tenderness CT Head: Acute left maxillary sinusitis Start Augmentin -denies any sinus pain and/or pressure We will continue Augmentin for a total of 10 days (2) HTN (hypertension): Initially hypertensive in ER with BP 203/115. Given labetalol 10mg IV, losartan 25mg po with BP down to 158/80 Pt did not have am meds Increase losartan to 50mg daily Labetalol prn HTN Blood pressure remains on the upper side at 181/87 today Has been on as needed blood pressure medications Her blood pressure is stable History of left MCA stroke with right hemiplegia No acute symptoms (3) Hypokalemia: K: 3.3 In ER given 40meq KCl po Magnesium level pending Monitor and replace-has been normalized (4) Diabetes mellitus, type II: A1c: 5.6 in 11/12/2020 Hold home meds NovoLog sliding scale per protocol A1c in a.m.-6.2 (5) CKD (chronic kidney disease), stage III: Cr: 0.8 Monitor renal functions, avoid nephrotoxic agents when possible (6) Seizure disorder: Denies recent seizure Dilantin level pending Continue Dilantin-on hold for today Dilantin level is pending for today-we will restart if the level has been falling She is back on her Dilantin Remains stable-Dilantin will be continued (7) Hypothyroid: TSH pending-2.840 Continue levothyroxine- DVT Prophylaxis -Lovenox SQ Full Code as per discussion with pt Follows with Dr Jones for routine care Try to call family members without any response Discussed with the sister and she will be discharged home this afternoon Total Time Total Time Spent Total Time Spent (In Minutes): 35 minutes Discharge Plan Discharge Items Patient Disposition: Home - Self-Care Reason For Visit: AMS Discharge Diagnosis: Change in mental status, acute sinusitis, hypertension, possible Dilantin toxicity Condition on Discharge: Fair Activity: Resume your previous activity Non-emergency contact: Primary Care Provider Call non-emergency contact if: you have any medication questions and your symptoms worsen Follow-up/Referrals: Royer Jones MD [Primary Care Provider] - (Date & Time 05/30/2021 10:00 AM Provider Madie Case MD Department Family Medicine [facility] ) Diet: Carb Consistent or DM2 and Heart Healthy Addtl Attending Provider Instructions: Please take precautions to avoid falls Finish the course of antibiotic Take your time during eating Your losartan has been increased to 50 mg once daily and amlodipine 2.5 mg daily has been added to control your blood pressure Pending Studies at Discharge: No Stand-Alone Forms: My [facility] [employer], Smoking Cessation Medications and DC Order Prescriptions: New amoxicillin-pot clavulanate [Augmentin] 875-125 mg Tablet 1 tab PO BIDM Qty: 6 RF: 0 amlodipine [Norvasc] 5 mg Tablet 2.5 mg PO QAM Qty: 15 RF: 0 losartan 50 mg Tablet 50 mg PO QAM Qty: 30 RF: 0 Lactinex 1 million cell tablet,chewable 1 tab PO BID Qty: 30 RF: 0 Continued metformin 500 mg tablet extended release 24 hr 1,000 mg PO DAILY RF: 0 rosuvastatin 40 mg tablet 40 mg PO HS RF: 0 aspirin 81 mg Tablet,Chewable 81 mg PO DAILY RF: 0 cholecalciferol (vitamin D3) [Vitamin D3] 125 mcg (5,000 unit) Tablet 125 mcg PO DAILY RF: 0 levothyroxine 75 mcg tablet 50 mcg PO DAILYBB Qty: 0 RF: 0 phenytoin sodium extended 100 mg capsule 200 mg PO BID RF: 0 pantoprazole 40 mg tablet,delayed release (DR/EC) 40 mg PO DAILYBB RF: 0 Discontinued losartan 25 mg tablet 25 mg PO DAILY RF: 0 Discharge Orders: Discharge Order (Routine); Ordered 05/28/21 Ordered By: Stephan Santillan/Other Patient Handouts: Managing Type 2 Diabetes, Special Foot Care for Diabetes Admission Data Admit Date/Time: 05/22/21 12:43 Attending Provider: Stephan Medel Admit Provider: Ivan Chaidez Primary Care Provider: Royer Jones Other Providers: Ivan Chaidez ; Sabiha Pardo ; Yamileth Jang ; Chikis Oliver ; Reinaldo Carrizales Other Interventions: Discharge Summary Assessment (RN) Last Done: 05/28/21 13:16
== END 2021-05-28 15:59 | disposition home or self-care (01) | DRG 153 ==
LOC: ED 09:58 → EDINP 12:43 → SUATTDRO 12:43 → EDINP 14:30 → 2N 05-23 01:06

== ENCOUNTER 2022-01-24 01:11 | Inpatient (IN) ==
[2022-01-24] MEDS ORDERED: SODIUM CHLORIDE 0.9% 1000ML 1,000 ML IV SCH (01:45)
[2022-01-24 02:27] LABS: Basophils # (auto) 0.05 K/uL (0-0.2); Basophils % (auto) 0.6 %; Eosinophils # (auto) 0.57 K/uL (0-0.50); Eosinophils % (auto) 6.9 %; Hematocrit (blood only) 34.8 % (34.1-44.9); Hemoglobin 10.6 g/dl (12.0-16.0); Immature Granulocytes # (auto) 0.03 K/uL (0.00-0.02); Immature Granulocytes % (auto) 0.4 %; Lymphocytes # (auto) 1.95 K/uL (1.2-3.4); Lymphocytes % (auto) 23.8 %; Mean Corpuscular Hemoglobin 25.4 pg (25.0-34.0); Mean Corpuscular Hgb Conc 30.5 g/dL (32.0-36.0); Mean Corpuscular Volume 83.3 fL (80.0-100.0); Mean Platelet Volume 9.8 fL (9.4-12.3); Monocytes # (auto) 0.55 K/uL (0.24-0.82); Monocytes % (auto) 6.7 %; Neutrophils # (auto) 5.06 K/uL (1.4-6.5); Neutrophils % (auto) 61.6 %; Platelet Count 213 K/uL (130-400); RDW Coefficient of Variation 15.7 % (11.5-14.5); RDW Standard Deviation 47.2 fL (36.4-46.3); Red Blood Count 4.18 M/uL (3.93-5.22); White Blood Count 8.21 K/ul (4.8-10.8)
[2022-01-24 02:56] LABS: Albumin Globulin Ratio 1.1 (0.9-2); Albumin Level 3.3 gm/dl (3.4-5.0); BUN Creatinine Ratio 17.9 (10-20); Bilirubin,Total 0.3 mg/dl (0.2-1.0); Calcium 8.4 mg/dl (8.5-10.1); Creatinine Clr Calc Pharmacy 52.5 ml/min; Est GFR (African American) 55.6 ml/min; Magnesium 1.8 mg/dl (1.7-2.4); Potassium 3.9 mmol/L (3.5-5.1); Total Protein 6.3 gm/dl (6.0-8.3)
[2022-01-24 02:59] LABS: Troponin I High Sensitivity 20.8 pg/ml (0-14)
[2022-01-24] MEDS ORDERED: PIPERACILLIN/TAZOBACTAM 4.5 GM in DEXTROSE 5% 100 ML IV ONE (06:16)
[2022-01-24] MEDS ORDERED: SODIUM CHLORIDE 0.9% 1000ML 1,000 ML IV ONE (06:32)
[2022-01-24 06:36] LABS: Appearance Urine Turbid (Clear); Bacteria Urine Automated 2+ (Negative); Bilirubin Urine Negative (Negative); Blood Urine 2+ (Negative); Color Urine Yellow; Epithelial Cell Urine Auto >30 /lpf (0-5); Glucose Urine UA Negative (Negative); Ketones Urine Negative (Negative); Leukocyte Esterase Urine 3+ (Negative); Nitrite Urine Negative (Negative); Protein Urine 2+ (Negative); Specific Gravity Urine 1.014 (1.000-1.030); Urobilinogen Urine Negative (Negative); WBC Urine Automated >30 /hpf (0-5); pH Urine 6.5 (4.5-7.5)
--- NOTE | 2022-01-24 06:47 | History & Physical Report ---
Date of Service January 24, 2022 Assessment & Plan (1) Complicated UTI (urinary tract infection): Plan: No overt sepsis for now Viral bronchitis secondary to COVID-19 infection. Patient nontoxic. hypertension, elevated secondary to illness Troponin elevation secondary to elevated BP, noted to be trending down hx CVA, PVD DM2 on oral medications, well-controlled as of recent hemoglobin A1c of 6.06 June 2021 hypothyroidism, euthyroid as of today's TSH chronic anemia, hemoglobin close to baseline Seizure disorder, stable on regimen dementia, patient mentating well GMF CS, Cefepime Supportive management for COVID-19 illness. Facilitate morning BP meds Basal bolus insulin, ISS BG goal 1 10-1 40, carb count coverage, update hemoglobin A1c PT OT eval DVT prophylaxis per Lovenox subcu Full code Patient requests for her son to be updated of her progress. Mr. Keith Lemon, contact #[phone] Text document was generated using [employer] voice recognition software. It may contain grammatical or spelling errors. Kindly contact undersigned for clarification of any documentation item in question. History of Present Illness Chief Complaint: Weakness, cough Primary Care Provider: Dr. Jones History obtained from patient and records. Medical history significant for hypertension, CVA, PVD, DM2 on oral medications, hypothyroidism, chronic anemia (baseline hemoglobin 11), dementia, seizure disorder. Last confinement May 2021 for delirium, supratherapeutic Dilantin levels. Patient not feeling well the last few days. Nonproductive cough without chest pain or shortness of breath. Poor appetite. Dysuria symptoms without flank/abdominal pain/hematuria. No fever, some chills. Sick COVID-19 contacts in the family. Patient completed COVID-19 vaccination. Zosyn given at the ER for UTI. 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 Allergies Allergy/AdvReac Type Severity Reaction Status Date / Time No Known Allergies Allergy Unknown Verified 11/19/21 09:43 Home Medications Medication Instructions Recorded Confirmed Type metformin 500 mg tablet,extended 1,000 mg PO QAM 04/15/19 11/19/21 History release 24 hr rosuvastatin 40 mg tablet 40 mg PO HS 04/15/19 11/19/21 History aspirin 81 mg chewable tablet 81 mg PO QAM 12/15/19 11/19/21 History cholecalciferol (vitamin D3) 125 125 mcg PO DAILY 12/15/19 11/19/21 History mcg (5,000 unit) tablet (Vitamin D3) pantoprazole 40 mg tablet,delayed 40 mg PO DAILYBB 05/07/21 11/19/21 History release phenytoin sodium extended 100 mg 200 mg PO BID 05/07/21 11/19/21 History capsule amlodipine 5 mg tablet (Norvasc) 2.5 mg PO QAM #15 tabs 05/28/21 11/19/21 Rx docusate sodium 100 mg capsule mg PO BID 01/24/22 History folic acid 1 mg tablet 1 mg PO DAILY 01/24/22 01/24/22 History levothyroxine 75 mcg tablet 75 mcg PO DAILY 01/24/22 01/24/22 History losartan 50 mg tablet 25 mg PO QAM 01/24/22 History memantine 5 mg tablet 5 mg PO BID 01/24/22 01/24/22 History Past Med/Surg History Medical History Anemia Carotid artery stenosis CKD (chronic kidney disease), stage III Depression Diabetes mellitus, type II Diabetic nephropathy History of CVA (cerebrovascular accident) hx L MCA CVA with RHP 2001 HTN (hypertension) Hyperlipidemia Hypothyroid Overactive bladder Seizure disorder s/p CVA...20 years since last seizure TIA (transient ischemic attack) 2001 - no residual effects - does not follow doctor Surgical History History of appendectomy History of cholecystectomy History of colonoscopy Hx of cataract extraction right eye Family History Father Cancer Brother Myocardial infarction Social History Smoking Status: Unknown if ever smoked Second Hand Exposure: No; Hx Alcohol Use: No Hx Substance Use: No Preferred Language: Hungarian Communication Ability: Effective Hand Brush Filler Required: No Beliefs That Will Affect Care: None Current Living Situation: Family Current Living Situation Comment: w/son Keith How many Children do You have: 4 Feels Safe at Home: Yes Assistive Devices: Wheelchair Review of Systems Review of Systems: As per HPI, all other systems reviewed and negative Physical Exam Physical Exam: GENERAL: Slightly uncomfortable, pleasant, no respiratory distress SKIN: Pallor, warm HEENT: Pale palpebral conjunctivae, no ptosis, dry buccal mucosa NECK : Supple, no tenderness CHEST : Decreased breath sounds, occasional expiratory wheezes, no tenderness HEART : RRR, no obvious murmurs ABDOMEN: Some distention, nontender EXTREMITIES : No LE swelling/tenderness, chronic RUE spastic contracture NEUROLOGIC : Coherent, no facial asymmetry, chronic RUE paresis, gait and stance not assessed Results & Data Results & Data ([facility]) Vital Signs (Past 12 Hours) Vital Signs Temp Pulse Pulse Resp BP BP Pulse Ox 01/24/22 03:23 78 16 167/63 H 97 01/24/22 01:24 37.1 C 99 H 18 122/83 95 O2 Del Method 01/24/22 03:23 Room Air 01/24/22 01:24 Room Air Laboratory Results Laboratory Results WBC 8.21 K/ul (4.8-10.8) 01/24/22 02:13 RBC 4.18 M/uL (3.93-5.22) 01/24/22 02:13 Hgb 10.6 g/dl (12.0-16.0) L 01/24/22 02:13 Hct 34.8 % (34.1-44.9) 01/24/22 02:13 MCV 83.3 fL (80.0-100.0) 01/24/22 02:13 MCH 25.4 pg (25.0-34.0) 01/24/22 02:13 MCHC 30.5 g/dL (32.0-36.0) L 01/24/22 02:13 RDW Std Deviation 47.2 fL (36.4-46.3) H 01/24/22 02:13 RDW Coeff of Maurice 15.7 % (11.5-14.5) H 01/24/22 02:13 Plt Count 213 K/uL (130-400) 01/24/22 02:13 MPV 9.8 fL (9.4-12.3) 01/24/22 02:13 Immature Gran % (Auto) 0.4 % 01/24/22 02:13 Neut % (Auto) 61.6 % 01/24/22 02:13 Lymph % (Auto) 23.8 % 01/24/22 02:13 Mcculloch % (Auto) 6.7 % 01/24/22 02:13 Eos % (Auto) 6.9 % 01/24/22 02:13 Baso % (Auto) 0.6 % 01/24/22 02:13 Neut # (Auto) 5.06 K/uL (1.4-6.5) 01/24/22 02:13 Lymph # (Auto) 1.95 K/uL (1.2-3.4) 01/24/22 02:13 Mcculloch # (Auto) 0.55 K/uL (0.24-0.82) 01/24/22 02:13 Eos # (Auto) 0.57 K/uL (0-0.50) H 01/24/22 02:13 Baso # (Auto) 0.05 K/uL (0-0.2) 01/24/22 02:13 Immature Gran # (Auto) 0.03 K/uL (0.00-0.02) H 01/24/22 02:13 Sodium 136 mmol/L (136-145) 01/24/22 02:13 Potassium 3.9 mmol/L (3.5-5.1) 01/24/22 02:13 Chloride 102 mmol/L (98-107) 01/24/22 02:13 Carbon Dioxide 23 mmol/L (21-32) 01/24/22 02:13 Anion Gap 11 (3-11) 01/24/22 02:13 BUN 20 mg/dl (6-23) 01/24/22 02:13 Creatinine 1.12 mg/dl (0.6-1.2) 01/24/22 02:13 Est Cr Clr Drug Dosing 52.5 ml/min 01/24/22 02:13 Est GFR ( Amer) 55.6 ml/min 01/24/22 02:13 Est GFR (Non-Af Amer) 48.0 ml/min 01/24/22 02:13 BUN/Creatinine Ratio 17.9 (10-20) 01/24/22 02:13 Glucose 206 mg/dl (70-99(Fasting)) H 01/24/22 02:13 Lactate 1.5 mmol/L (0.4-2.0) 01/24/22 05:44 Calcium 8.4 mg/dl (8.5-10.1) L 01/24/22 02:13 Magnesium 1.8 mg/dl (1.7-2.4) 01/24/22 02:13 Total Bilirubin 0.3 mg/dl (0.2-1.0) 01/24/22 02:13 AST 11 U/L (13-39) L 01/24/22 02:13 ALT 10 U/L (7-52) 01/24/22 02:13 Alkaline Phosphatase 81 U/L (34-104) 01/24/22 02:13 Troponin I High Sens 19.6 pg/ml (0-14) H 01/24/22 04:26 Total Protein 6.3 gm/dl (6.0-8.3) 01/24/22 02:13 Albumin 3.3 gm/dl (3.4-5.0) L 01/24/22 02:13 Globulin 3.0 gm/dl (2.5-4.0) 01/24/22 02:13 Albumin/Globulin Ratio 1.1 (0.9-2) 01/24/22 02:13 TSH 1.382 uIu/ml (0.300-4.500) 01/24/22 02:13 SARS-CoV-2, RNA, NAAT POSITIVE (NEGATIVE) A* 01/24/22 02:10 Diagnostic Findings Chest x-ray as per my interpretation cardiomegaly, atelectasis EKG could not be located at time of dictation.
--- NOTE | 2022-01-24 07:03 | XRay Report ---
XR chest 1V portable HISTORY: 76 years-old Female weakness acute cough with weakness COMPARISON: Chest radiograph 08/21/2021, CT abdomen and pelvis 12/16/2019 TECHNIQUE: Portable AP view of the chest FINDINGS: Cardiac silhouette is enlarged. Unchanged opacity of the right cardiophrenic angle suggestive of a pr ominent epicardial fat pad. Mild subsegmental bibasilar atelectasis/scarring. No pneumothorax, pleura l effusion, airspace consolidation or overt pulmonary edema. The patient is mildly rotated. Degenerat gee changes of the shoulders and spine. IMPRESSION: Cardiomegaly without acute process. ACT 112: Negative or not required by law. The above report was generated using voice recognition software. It may contain grammatical, syntax o r spelling errors. Electronically signed by: Madi Gardner M.D. 01/24/2022 7:02 AM
[2022-01-24] MEDS ORDERED: ALBUTEROL HFA 8 GM INHALER INH ONE (07:05)
[2022-01-24] MEDS ORDERED: LOSARTAN POTASSIUM 50 MG TAB PO STA (07:10)
[2022-01-24] MEDS ORDERED: guaiFENesin 600 MG TABCR PO STA (07:10)
[2022-01-24] MEDS ORDERED: LOSARTAN POTASSIUM 25 MG TAB PO STA (07:12)
[2022-01-24] MEDS ORDERED: LANTUS PER UNIT CHARGE SQ STA ×2 (07:21→11:25)
[2022-01-24 07:25] LABS: Cast Urine Automated 0 /lpf (0-5)
[2022-01-24] MEDS ORDERED: PHENYTOIN SODIUM ER 100 MG CAP PO ONE (09:15)
[2022-01-24 09:36] LABS: Estimated Average Glucose 137 mg/dl; Hemoglobin A1C 6.4 % (4.5-5.6)
[2022-01-24] MEDS ORDERED: PROMETHAZINE HCL 12.5 MG in SODIUM CHLORIDE 0.9% 50 ML IV PRN (10:07)
[2022-01-24] MEDS ORDERED: GLUCAGON FOR INJ 1 MG VIAL SQ PRN (10:07)
[2022-01-24] MEDS ORDERED: CARBOHYDRATES FOR HYPOGLYCEMIA PO PRN (10:07)
[2022-01-24] MEDS ORDERED: POLYETHYLENE (MIRALAX) 17 GM PACK PO PRN (10:07)
[2022-01-24] MEDS ORDERED: GLUCOSE 40% GEL 15 GM TUBE PO PRN (10:07)
[2022-01-24] MEDS ORDERED: ACETAMINOPHEN 325 MG TAB PO PRN (10:07)
[2022-01-24] MEDS ORDERED: oxyCODONE HCL IR 5 MG TAB (IMMEDIATE RELEASE) PO PRN (10:07)
[2022-01-24] MEDS ORDERED: GLUCOSE 10 TAB/TUBE PO PRN (10:07)
[2022-01-24] MEDS ORDERED: DEXTROSE 50% 50 ML SYRINGE IV PRN (10:07)
[2022-01-24] MEDS ORDERED: CEFEPIME 2,000 MG in SYRINGE 0 ML IV ONE (10:30)
[2022-01-24] MEDS: ENOXAPARIN INJ 40 MG/0.4 ML SYR SQ SCH (11:16)
[2022-01-24] MEDS: amLODIPine BESYLATE 5 MG TAB PO SCH (11:17)
[2022-01-24] MEDS: FOLIC ACID 1 MG TAB PO SCH (11:17)
[2022-01-24] MEDS: LEVOTHYROXINE SODIUM 75 MCG TABLET PO SCH (11:17)
[2022-01-24] MEDS: DOCUSATE SODIUM 100 MG CAP PO SCH ×2 (11:17→20:20)
[2022-01-24] MEDS: ASPIRIN 81 MG ECTAB PO SCH (11:17)
[2022-01-24] MEDS: MEMANTINE HCL 5 MG TAB PO SCH ×2 (11:17→20:19)
[2022-01-24] MEDS: INSULIN ASPART PER UNIT SC SCH ×4 (12:15→20:40)
--- NOTE | 2022-01-24 13:25 | Hospitalist Progress Note ---
Date of Service January 24, 2022 Assessment & Plan (1) Complicated UTI (urinary tract infection): Plan 76-year-old lady with PMH of CVA, PVD, DM2, hypertension, hypothyroidism, chronic anemia [baseline hemoglobin 11], dementia and seizure disorder presented to ED 01/24 with complaint of not feeling well for the last few days and ongoing nonproductive cough without chest pain or shortness of breath since last 2 to 3 weeks [employer]. Patient completed COVID-19 vaccination. She is being managed for the following: Complicated UTI: Patient complaining of burning while passing urine since last 1 week [employer], given Zosyn in the ED, continue with cefepime 01/24, follow urine culture. COVID-19 infection: Patient vaccinated against COVID. Patient on room air, reports having dry cough for 2 to 3 weeks [employer], about the same, Tessalon Perles and Mucinex. Symptomatic management. HTN: BP elevated at presentation, likely 2/2 illness. Trop elevation minimal and likely 2/2 elevated BP. Pt w/ no chest pain. Other chronic medical conditions: HTN, CVA, PVD, DM2, hypothyroidism, seizure disorder [stable on regimen], dementia --->> continue with/resume home meds as and when able. DVT prophylaxis: Lovenox subcu Full code Patient's son Mr. Keith Lemon [[phone]]. Called and updated. Text document was generated using voice recognition software. It may contain grammatical or spelling errors. Kindly contact undersigned for clarification of any documentation item in question. Admission and Anticipated Discharge Date Admission Date: January 24, 2022 Subjective Patient seen and examined at bedside as a follow-up of complicated UTI and COVID-19 infection. Patient was lying in bed semiupright, on room air, denies any new acute events overnight, reports having ongoing cough for 2 to 3 weeks which is about the same and mostly dry, also reports having burning sensation while passing urine since about 1 week. Patient denies any fever/headache/chills/chest pain/palpitations/belly pain/diarrhea/other review of symptoms. Physical Exam Physical Exam: GENERAL: Alert and oriented x3. NAD, on RA. HEENT: No pallor, no icterus. Pupils equal, round and reactive to light. Oral mucosa moist. NECK: No JVD, no neck masses. HEART: S1 and S2 heard. Regular rate and rhythm. No murmur, no gallop. RESPIRATORY SYSTEM: Normal AP diameter. No accessory muscle use. No wheezing, no crackles. ABDOMEN: Soft, bowel sounds present, nontender, no distention. CENTRAL NERVOUS SYSTEM: No facial droop. Speech is clear. Obeys simple commands. Moves extremities. EXTREMITIES: No edema, no erythema seen. Chronic RUE spastic contracture and paresis. Results & Data Results & Data ([facility]) Vital Signs (Past 12 Hours) Vital Signs Temp Pulse Pulse Resp BP BP Pulse Ox 01/24/22 12:00 36.9 C 84 20 144/84 H 97 01/24/22 10:27 101 H 14 145/81 H 97 01/24/22 10:13 99 01/24/22 09:15 96 H 20 173/110 H 97 01/24/22 03:23 78 16 167/63 H 97 O2 Del Method 01/24/22 12:00 Room Air 01/24/22 10:27 01/24/22 10:13 Room Air 01/24/22 09:15 Room Air 01/24/22 03:23 Room Air
[2022-01-24] MEDS ORDERED: 0.2 MICRON FILTER SET 1 EACH IV ONE (13:53)
[2022-01-24] MEDS ORDERED: PHENYTOIN IV ONE (14:15)
[2022-01-24] MEDS ORDERED: SODIUM CHLORIDE 0.9% IV ONE (14:15)
[2022-01-24] MEDS: BENZONATATE 100 MG CAPSULE PO SCH ×2 (14:55→20:20)
[2022-01-24] MEDS: PHENYTOIN SODIUM ER 100 MG CAP PO SCH (20:03)
[2022-01-24] MEDS: CEFEPIME 1,000 MG in SYRINGE 0 ML IV SCH (20:03)
[2022-01-24] MEDS: ROSUVASTATIN CALCIUM 20 MG TAB PO SCH (20:19)
[2022-01-24] MEDS: guaiFENesin 600 MG TABCR PO SCH (20:20)
--- NOTE | 2022-01-24 20:41 | Emergency Department Note ---
Impression & Plan Acute UTI, COVID-19, Weakness, Elevated lactic acid level ED Provider Note CHIEF COMPLAINT: COVID positive, cough HISTORY OF PRESENT ILLNESS: This 76-year-old female patient presents to the em ergency department with complaints of a dry cough and fatigue. Patient's family reported to EMS that they are COVID-positive. They tested the patient for COVID this afternoon and she was positive as well. They wanted her evaluated in the emergency department tonight. They did notice a new bedsore on the back of the right leg. She is cared for by her son and his significant other. History is somewhat limited secondary to no family available at the bedside and the patient's limited ability to report. REVIEW OF SYSTEMS: A review of systems was performed with positives and pertinent negatives listed in the history of present illness. 10 systems were reviewed and are otherwise negative. ALLERGIES: see below MEDICATIONS: see below PMH: see below SOCIAL HISTORY: see below DDx: Infection, dehydration, metabolic abnormality, hypo/hyperglycemia, electrolyte disturbance, anemia, hypoxia, cardiac sources, intracerebral event, toxicologic, neurologic, as well as other pathologies. PHYSICAL EXAM: Vital signs reviewed. General: Chronically ill-appearing 76-year-old female, in no significant distress. HEENT: No scleral icterus, PERRLA, neck supple. Atraumatic. Cardiovascular: Regular rate and rhythm, no extra sounds. Pulmonary: Clear to auscultation bilaterally, normal work of breathing. Abdomen: Soft, nontender, nondistended, positive bowel sounds. Musculoskeletal: Atraumatic, no peripheral edema. Neurologic: Patient awake alert and oriented x 3, speech is clear Skin: Warm, dry, mild intertrigo to groin, gluteal folds with cream in place. Small quarter sized open pressure ulcer to back of upper R thigh EMERGENCY DEPARTMENT COURSE/MDM: This patient was evaluated and appeared to be in no significant distress. IV access was obtained laboratory work was drawn. Chest x-ray was performed reveals no evidence of focal infiltrate. Patient's laboratory work reveals a positive COVID swab, positive UA with a mildly elevated lactate of 2.1. The patient was hydrated with IV normal saline solution and medicated with IV Zosyn. Blood cultures and urine culture are p ending. Patient's case was discussed with the hospitalist service will evaluate the patient for admission and further management. MONITORING: An order for cardiac monitoring was placed and the patient is noted to be in a [] at [] beats per minute. RADIOLOGY: See below EKG: DISPOSITION: Past Med/Surg History Medical History Anemia Carotid artery stenosis CKD (chronic kidney disease), stage III Depression Diabetes mellitus, type II Diabetic nephropathy History of CVA (cerebrovascular accident) hx L MCA CVA with RHP 2001 HTN (hypertension) Hyperlipidemia Hypothyroid Overactive bladder Seizure disorder s/p CVA...20 years since last seizure TIA (transient ischemic attack) 2001 - no residual effects - does not follow doctor Surgical History History of appendectomy History of cholecystectomy History of colonoscopy Hx of cataract extraction right eye Family History Father Cancer Brother Myocardial infarction Social History Smoking Status: Never smoker Second Hand Exposure: No; Hx Alcohol Use: No Hx Substance Use: No Preferred Language: Norwegian Communication Ability: Effective Radiology Transporter Required: No Beliefs That Will Affect Care: None Current Living Situation: Family Current Living Situation Comment: w/son Keith How many Children do You have: 3 Other Information That Helps Us Care for You: No Feels Safe at Home: Yes Safety Concerns: Feels Safe At This Time Assistive Devices: Hospital Bed and Wheelchair Allergies Allergies Allergy/AdvReac Type Severity Reaction Status Date / Time No Known Allergies Allergy Unknown Verified 11/19/21 09:43 Home Meds Home Medications Medication Instructions Recorded Confirmed metformin 500 mg tablet,extended 1,000 mg PO QAM 04/15/19 11/19/21 release 24 hr rosuvastatin 40 mg tablet 40 mg PO HS 04/15/19 11/19/21 aspirin 81 mg chewable tablet 81 mg PO QAM 12/15/19 11/19/21 cholecalciferol (vitamin D3) 125 125 mcg PO DAILY 12/15/19 11/19/21 mcg (5,000 unit) tablet (Vitamin D3) pantoprazole 40 mg tablet,delayed 40 mg PO DAILYBB 05/07/21 11/19/21 release folic acid 1 mg tablet 1 mg PO DAILY 08/26/22 08/26/22 levothyroxine 75 mcg tablet 75 mcg PO DAILY 01/24/22 01/24/22 memantine 5 mg tablet 5 mg PO BID 01/24/22 01/24/22 Previous Rx's Medication Instructions Recorded amlodipine 5 mg tablet (Norvasc) 2.5 mg PO QAM #15 tabs 05/28/21 L.acidop,casei,lactis,rham-B.lact,judith 2 cap PO DAILY 10 days #20 caps 01/27/22 625 mg (10 billion cell) capsule (Advanced Probiotic) benzonatate 100 mg capsule 100 mg PO TID 5 days #15 caps 01/27/22 guaifenesin 600 mg tablet, 600 mg PO Q12 5 days #10 tabs 01/27/22 extended release 12 hr (Mucinex) losartan 50 mg tablet 25 mg PO QPM #30 tabs 01/27/22 phenytoin sodium extended 100 mg 200 mg PO QAM #60 caps 01/27/22 capsule phenytoin sodium extended 100 mg 300 mg PO HS #90 caps 01/27/22 capsule (Dilantin Extended) Results & Data (ED) Vital Signs Vital Signs - 24 hr 01/24/22 01:24 01/24/22 03:23 Temperature 37.1 C Temperature Source Oral Pulse Rate 99 H Pulse Rate [Apical] 78 Respiratory Rate 18 16 Blood Pressure 122/83 Blood Pressure [Right Arm] 167/63 H Blood Pressure Mean 96 Blood Pressure Mean [Right Arm] 97 Pulse Oximetry 95 97 Oxygen Delivery Method Room Air Room Air Sepsis Recent Fever Within 48 Hours No Sepsis New/Unexplained Change in Mental Status No Sepsis Action Taken by Nursing No Action Required Home Medications Current Medication List: was personally reviewed by me Laboratory Data Attestation: I reviewed the patient's lab results. Result diagrams: 01/25/22 06:46 01/27/22 07:31 Lab Results 01/24/22 01/24/22 01/24/22 Range/Units 02:10 02:13 02:13 WBC 8.21 (4.8-10.8) K/ul RBC 4.18 (3.93-5.22) M/uL Hgb 10.6 L (12.0-16.0) g/dl Hct 34.8 (34.1-44.9) % MCV 83.3 (80.0-100.0) fL MCH 25.4 (25.0-34.0) pg MCHC 30.5 L (32.0-36.0) g/dL RDW Std Deviation 47.2 H (36.4-46.3) fL RDW Coeff of Maurice 15.7 H (11.5-14.5) % Plt Count 213 (130-400) K/uL MPV 9.8 (9.4-12.3) fL Immature Gran % (Auto) 0.4 % Neut % (Auto) 61.6 % Lymph % (Auto) 23.8 % [place] % (Auto) 6.7 % Eos % (Auto) 6.9 % Baso % (Auto) 0.6 % Neut # (Auto) 5.06 (1.4-6.5) K/uL Lymph # (Auto) 1.95 (1.2-3.4) K/uL [place] # (Auto) 0.55 (0.24-0.82) K/uL Eos # (Auto) 0.57 H (0-0.50) K/uL Baso # (Auto) 0.05 (0-0.2) K/uL Immature Gran # (Auto) 0.03 H (0.00-0.02) K/uL Sodium 136 (136-145) mmol/L Potassium 3.9 (3.5-5.1) mmol/L Chloride 102 (98-107) mmol/L Carbon Dioxide 23 (21-32) mmol/L Anion Gap 11 (3-11) BUN 20 (6-23) mg/dl Creatinine 1.12 (0.6-1.2) mg/dl Est Cr Clr Drug Dosing 52.5 ml/min Est GFR ( Amer) 55.6 ml/min Est GFR (Non-Af Amer) 48.0 ml/min BUN/Creatinine Ratio 17.9 (10-20) Glucose 206 H (70-99(Fasting)) mg/dl Estimat Average Glucose mg/dl Hemoglobin A1c (4.5-5.6) % Lactate (0.4-2.0) mmol/L Calcium 8.4 L (8.5-10.1) mg/dl Magnesium 1.8 (1.7-2.4) mg/dl Total Bilirubin 0.3 (0.2-1.0) mg/dl AST 11 L (13-39) U/L ALT 10 (7-52) U/L Alkaline Phosphatase 81 (34-104) U/L Troponin I High Sens 20.8 H (0-14) pg/ml Total Protein 6.3 (6.0-8.3) gm/dl Albumin 3.3 L (3.4-5.0) gm/dl Globulin 3.0 (2.5-4.0) gm/dl Albumin/Globulin Ratio 1.1 (0.9-2) TSH (0.300-4.500) uIu/ml Urine Color Urine Appearance (Clear) Urine pH (4.5-7.5) Ur Specific [place] (1.000-1.030) Urine Protein (Negative) Urine Glucose (UA) (Negative) Urine Ketones (Negative) Urine Blood (Negative) Urine Nitrite (Negative) Urine Bilirubin (Negative) Urine Urobilinogen (Negative) Ur Leukocyte Esterase (Negative) Urine WBC (Auto) (0-5) /hpf Urine RBC (Auto) (0-4) /hpf U Hyaline Cast (Auto) (0-5) /lpf U Epithel Cells (Auto) (0-5) /lpf Urine Bacteria (Auto) (Negative) Urine Yeast SARS-CoV-2, RNA, NAAT POSITIVE A* (NEGATIVE) Staphylococcus sp PCR (NotDetected) Bld Cult ID Panel PCR (NotDetected) 01/24/22 01/24/22 01/24/22 Range/Units 02:13 02:13 03:34 WBC (4.8-10.8) K/ul RBC (3.93-5.22) M/uL Hgb (12.0-16.0) g/dl Hct (34.1-44.9) % MCV (80.0-100.0) fL MCH (25.0-34.0) pg MCHC (32.0-36.0) g/dL RDW Std Deviation (36.4-46.3) fL RDW Coeff of Maurice (11.5-14.5) % Plt Count (130-400) K/uL MPV (9.4-12.3) fL Immature Gran % (Auto) % Neut % (Auto) % Lymph % (Auto) % [place] % (Auto) % Eos % (Auto) % Baso % (Auto) % Neut # (Auto) (1.4-6.5) K/uL Lymph # (Auto) (1.2-3.4) K/uL [place] # (Auto) (0.24-0.82) K/uL Eos # (Auto) (0-0.50) K/uL Baso # (Auto) (0-0.2) K/uL Immature Gran # (Auto) (0.00-0.02) K/uL Sodium (136-145) mmol/L Potassium (3.5-5.1) mmol/L Chloride (98-107) mmol/L Carbon Dioxide (21-32) mmol/L Anion Gap (3-11) BUN (6-23) mg/dl Creatinine (0.6-1.2) mg/dl Est Cr Clr Drug Dosing ml/min Est GFR ( Amer) ml/min Est GFR (Non-Af Amer) ml/min BUN/Creatinine Ratio (10-20) Glucose (70-99(Fasting)) mg/dl Estimat Average Glucose 137 mg/dl Hemoglobin A1c 6.4 H (4.5-5.6) % Lactate (0.4-2.0) mmol/L Calcium (8.5-10.1) mg/dl Magnesium (1.7-2.4) mg/dl Total Bilirubin (0.2-1.0) mg/dl AST (13-39) U/L ALT (7-52) U/L Alkaline Phosphatase (34-104) U/L Troponin I High Sens (0-14) pg/ml Total Protein (6.0-8.3) gm/dl Albumin (3.4-5.0) gm/dl Globulin (2.5-4.0) gm/dl Albumin/Globulin Ratio (0.9-2) TSH 1.382 (0.300-4.500) uIu/ml Urine Color Urine Appearance (Clear) Urine pH (4.5-7.5) Ur Specific [place] (1.000-1.030) Urine Protein (Negative) Urine Glucose (UA) (Negative) Urine Ketones (Negative) Urine Blood (Negative) Urine Nitrite (Negative) Urine Bilirubin (Negative) Urine Urobilinogen (Negative) Ur Leukocyte Esterase (Negative) Urine WBC (Auto) (0-5) /hpf Urine RBC (Auto) (0-4) /hpf U Hyaline Cast (Auto) (0-5) /lpf U Epithel Cells (Auto) (0-5) /lpf Urine Bacteria (Auto) (Negative) Urine Yeast SARS-CoV-2, RNA, NAAT (NEGATIVE) Staphylococcus sp PCR DETECTED A (NotDetected) Bld Cult ID Panel PCR See PCR Comment (NotDetected) 01/24/22 01/24/22 01/24/22 Range/Units 03:38 04:26 05:44 WBC (4.8-10.8) K/ul RBC (3.93-5.22) M/uL Hgb (12.0-16.0) g/dl Hct (34.1-44.9) % MCV (80.0-100.0) fL MCH (25.0-34.0) pg MCHC (32.0-36.0) g/dL RDW Std Deviation (36.4-46.3) fL RDW Coeff of Maurice (11.5-14.5) % Plt Count (130-400) K/uL MPV (9.4-12.3) fL Immature Gran % (Auto) % Neut % (Auto) % Lymph % (Auto) % [place] % (Auto) % Eos % (Auto) % Baso % (Auto) % Neut # (Auto) (1.4-6.5) K/uL Lymph # (Auto) (1.2-3.4) K/uL [place] # (Auto) (0.24-0.82) K/uL Eos # (Auto) (0-0.50) K/uL Baso # (Auto) (0-0.2) K/uL Immature Gran # (Auto) (0.00-0.02) K/uL Sodium (136-145) mmol/L Potassium (3.5-5.1) mmol/L Chloride (98-107) mmol/L Carbon Dioxide (21-32) mmol/L Anion Gap (3-11) BUN (6-23) mg/dl Creatinine (0.6-1.2) mg/dl Est Cr Clr Drug Dosing ml/min Est GFR ( Amer) ml/min Est GFR (Non-Af Amer) ml/min BUN/Creatinine Ratio (10-20) Glucose (70-99(Fasting)) mg/dl Estimat Average Glucose mg/dl Hemoglobin A1c (4.5-5.6) % Lactate 2.1 H* 1.5 (0.4-2.0) mmol/L Calcium (8.5-10.1) mg/dl Magnesium (1.7-2.4) mg/dl Total Bilirubin (0.2-1.0) mg/dl AST (13-39) U/L ALT (7-52) U/L Alkaline Phosphatase (34-104) U/L Troponin I High Sens 19.6 H (0-14) pg/ml Total Protein (6.0-8.3) gm/dl Albumin (3.4-5.0) gm/dl Globulin (2.5-4.0) gm/dl Albumin/Globulin Ratio (0.9-2) TSH (0.300-4.500) uIu/ml Urine Color Urine Appearance (Clear) Urine pH (4.5-7.5) Ur Specific [place] (1.000-1.030) Urine Protein (Negative) Urine Glucose (UA) (Negative) Urine Ketones (Negative) Urine Blood (Negative) Urine Nitrite (Negative) Urine Bilirubin (Negative) Urine Urobilinogen (Negative) Ur Leukocyte Esterase (Negative) Urine WBC (Auto) (0-5) /hpf Urine RBC (Auto) (0-4) /hpf U Hyaline Cast (Auto) (0-5) /lpf U Epithel Cells (Auto) (0-5) /lpf Urine Bacteria (Auto) (Negative) Urine Yeast SARS-CoV-2, RNA, NAAT (NEGATIVE) Staphylococcus sp PCR (NotDetected) Bld Cult ID Panel PCR (NotDetected) 01/24/22 Range/Units 05:50 WBC (4.8-10.8) K/ul RBC (3.93-5.22) M/uL Hgb (12.0-16.0) g/dl Hct (34.1-44.9) % MCV (80.0-100.0) fL MCH (25.0-34.0) pg MCHC (32.0-36.0) g/dL RDW Std Deviation (36.4-46.3) fL RDW Coeff of Maurice (11.5-14.5) % Plt Count (130-400) K/uL MPV (9.4-12.3) fL Immature Gran % (Auto) % Neut % (Auto) % Lymph % (Auto) % [place] % (Auto) % Eos % (Auto) % Baso % (Auto) % Neut # (Auto) (1.4-6.5) K/uL Lymph # (Auto) (1.2-3.4) K/uL [place] # (Auto) (0.24-0.82) K/uL Eos # (Auto) (0-0.50) K/uL Baso # (Auto) (0-0.2) K/uL Immature Gran # (Auto) (0.00-0.02) K/uL Sodium (136-145) mmol/L Potassium (3.5-5.1) mmol/L Chloride (98-107) mmol/L Carbon Dioxide (21-32) mmol/L Anion Gap (3-11) BUN (6-23) mg/dl Creatinine (0.6-1.2) mg/dl Est Cr Clr Drug Dosing ml/min Est GFR ( Amer) ml/min Est GFR (Non-Af Amer) ml/min BUN/Creatinine Ratio (10-20) Glucose (70-99(Fasting)) mg/dl Estimat Average Glucose mg/dl Hemoglobin A1c (4.5-5.6) % Lactate (0.4-2.0) mmol/L Calcium (8.5-10.1) mg/dl Magnesium (1.7-2.4) mg/dl Total Bilirubin (0.2-1.0) mg/dl AST (13-39) U/L ALT (7-52) U/L Alkaline Phosphatase (34-104) U/L Troponin I High Sens (0-14) pg/ml Total Protein (6.0-8.3) gm/dl Albumin (3.4-5.0) gm/dl Globulin (2.5-4.0) gm/dl Albumin/Globulin Ratio (0.9-2) TSH (0.300-4.500) uIu/ml Urine Color Yellow Urine Appearance Turbid A (Clear) Urine pH 6.5 (4.5-7.5) Ur Specific [place] 1.014 (1.000-1.030) Urine Protein 2+ H (Negative) Urine Glucose (UA) Negative (Negative) Urine Ketones Negative (Negative) Urine Blood 2+ H (Negative) Urine Nitrite Negative (Negative) Urine Bilirubin Negative (Negative) Urine Urobilinogen Negative (Negative) Ur Leukocyte Esterase 3+ H (Negative) Urine WBC (Auto) >30 H (0-5) /hpf Urine RBC (Auto) 10-30 H (0-4) /hpf U Hyaline Cast (Auto) 0 (0-5) /lpf U Epithel Cells (Auto) >30 H (0-5) /lpf Urine Bacteria (Auto) 2+ H (Negative) Urine Yeast Not Reportable SARS-CoV-2, RNA, NAAT (NEGATIVE) Staphylococcus sp PCR (NotDetected) Bld Cult ID Panel PCR (NotDetected) Administered Medications Discontinued Medications Acetaminophen (Acetaminophen 325 Mg Tab) 650 mg PO Q4H PRN PRN Reason: pain/fever Stop: 02/23/22 10:06 Last Admin: 01/25/22 20:46 Dose: 650 mg Documented By: PAULINA Albuterol (Albuterol Hfa 8 Gm Inhaler) 2 puffs INH NOW ONE Stop: 01/24/22 07:06 Last Admin: 01/24/22 08:58 Dose: 2 puffs Documented By: JENNIFER Albuterol (Albut/Ipratrop 3mg/0.5mg Neb 3 Ml Vial) 3 ml NEB NOW STA; Protocol Stop: 01/27/22 00:44 Last Admin: 01/27/22 01:55 Dose: 3 ml Documented By: LILIANA Amlodipine Besylate (Amlodipine Besylate 5 Mg Tab) 2.5 mg PO [facility] Stop: 02/23/22 10:29 Last Admin: 01/27/22 08:21 Dose: 2.5 mg Documented By: Admin: 01/26/22 08:04 Dose: 2.5 mg Documented By: Admin: 01/25/22 08:12 Dose: 2.5 mg Documented By: Admin: 01/24/22 11:17 Dose: 2.5 mg Documented By: HAYES Aspirin (Aspirin 81 Mg Ectab) 81 mg PO [facility] Stop: 02/23/22 10:29 Last Admin: 01/27/22 08:21 Dose: 81 mg Documented By: Admin: 01/26/22 08:05 Dose: 81 mg Documented By: Admin: 01/25/22 08:12 Dose: 81 mg Documented By: Admin: 01/24/22 11:17 Dose: 81 mg Documented By: HAYES Benzonatate (Benzonatate 100 Mg Capsule) 100 mg PO TID AMAURI Stop: 02/23/22 13:59 Last Admin: 01/27/22 14:30 Dose: 100 mg Documented By: Admin: 01/27/22 08:21 Dose: 100 mg Documented By: Admin: 01/26/22 21:15 Dose: Not Given Documented By: Admin: 01/26/22 12:39 Dose: 100 mg Documented By: Admin: 01/26/22 08:05 Dose: 100 mg Documented By: Admin: 01/25/22 20:35 Dose: 100 mg Documented By: Admin: 01/25/22 14:06 Dose: 100 mg Documented By: Admin: 01/25/22 08:12 Dose: 100 mg Documented By: Admin: 01/24/22 20:20 Dose: 100 mg Documented By: Admin: 01/24/22 14:55 Dose: 100 mg Documented By: HAYES Docusate Sodium (Docusate Sodium 100 Mg Cap) 100 mg PO BID AMAURI Stop: 02/23/22 10:29 Last Admin: 01/27/22 08:25 Dose: Not Given Documented By: Admin: 01/26/22 21:13 Dose: 100 mg Documented By: Admin: 01/26/22 08:06 Dose: 100 mg Documented By: Admin: 01/25/22 20:36 Dose: 100 mg Documented By: Admin: 01/25/22 08:12 Dose: 100 mg Documented By: Admin: 01/24/22 20:20 Dose: 100 mg Documented By: Admin: 01/24/22 11:17 Dose: 100 mg Documented By: HAYES Enoxaparin Sodium (Enoxaparin Inj 40 Mg/0.4 Ml Syr) 40 mg SQ QAM AMAURI Stop: 02/23/22 10:29 Last Admin: 01/27/22 08:21 Dose: 40 mg Documented By: Admin: 01/26/22 08:06 Dose: 40 mg Documented By: Admin: 01/25/22 08:15 Dose: 40 mg Documented By: Admin: 01/24/22 11:16 Dose: 40 mg Documented By: HAYES Folic Acid (Folic Acid 1 Mg Tab) 1 mg PO DAILY AMAURI Stop: 02/23/22 10:29 Last Admin: 01/27/22 08:21 Dose: 1 mg Documented By: Admin: 01/26/22 08:05 Dose: 1 mg Documented By: Admin: 01/25/22 08:12 Dose: 1 mg Documented By: Admin: 01/24/22 11:17 Dose: 1 mg Documented By: HAYES Guaifenesin (Guaifenesin 600 Mg Tabcr) 600 mg PO NOW STA Stop: 01/24/22 07:11 Last Admin: 01/24/22 08:58 Dose: 600 mg Documented By: JENNIFER Guaifenesin (Guaifenesin 600 Mg Tabcr) 600 mg PO Q12 [facility] Stop: 02/23/22 20:59 Last Admin: 01/27/22 08:21 Dose: 600 mg Documented By: Admin: 01/26/22 21:14 Dose: 600 mg Documented By: Admin: 01/26/22 08:05 Dose: 600 mg Documented By: Admin: 01/25/22 20:37 Dose: 600 mg Documented By: Admin: 01/25/22 08:11 Dose: 600 mg Documented By: Admin: 01/24/22 20:20 Dose: 600 mg Documented By: PAULINA Sodium Chloride (Nss 1000ml) 1,000 mls @ 125 mls/hr IV .Q8H AMAURI Stop: 01/24/22 09:44 Last Infusion: 01/24/22 11:21 Dose: 0 mls/hr Documented By: Admin: 01/24/22 02:17 Dose: 125 mls/hr Documented By: CLEM Piperacillin Sod/Tazobactam (Sod 4.5 gm/ Dextrose) 120 mls @ 200 mls/hr IV NOW ONE; Protocol Stop: 01/24/22 06:51 Last Infusion: 01/24/22 09:17 Dose: 0 mls/hr Documented By: Admin: 01/24/22 08:41 Dose: 200 mls/hr Documented By: JENNIFER Sodium Chloride (Nss 1000ml) 1,000 mls @ 75 mls/hr IV .[id number] ONE Stop: 01/24/22 19:51 Last Infusion: 01/24/22 22:16 Dose: 0 mls/hr Documented By: Admin: 01/24/22 08:43 Dose: 75 mls/hr Documented By: JENNIFER Cefepime HCl 2,000 mg/ Syringe 20 mls @ 5 mls/min IV ONE ONE; Protocol Stop: 01/24/22 10:33 Last Admin: 01/24/22 11:17 Dose: 5 mls/min Documented By: HAYES Cefepime HCl 1,000 mg/ Syringe 11.3 mls @ 5.5 mls/min IV Q12H AMAURI; Protocol Stop: 02/03/22 20:59 Last Admin: 01/27/22 08:21 Dose: 5.5 mls/min Documented By: Admin: 01/26/22 21:13 Dose: 5.5 mls/min Documented By: Admin: 01/26/22 08:21 Dose: 5.5 mls/min Documented By: Admin: 01/25/22 20:38 Dose: 5.5 mls/min Documented By: Admin: 01/25/22 08:15 Dose: 5.5 mls/min Documented By: Admin: 01/24/22 20:03 Dose: 5.5 mls/min Documented By: PAULINA Phenytoin 500 mg/ Sodium (Chloride) 110 mls @ 660 mls/hr IV NOW ONE Stop: 01/24/22 14:24 Last Infusion: 01/24/22 15:48 Dose: 0 mls/hr Documented By: Admin: 01/24/22 14:55 Dose: 660 mls/hr Documented By: HAYES Insulin Aspart (Insulin Aspart Per Unit) 0 units SC ACHS AMAURI Stop: 02/23/22 10:06 Last Admin: 01/27/22 12:01 Dose: Not Given Documented By: Admin: 01/27/22 08:14 Dose: 4 units Documented By: Co-signed By: MARY Admin: 01/26/22 20:53 Dose: Not Given Documented By: Admin: 01/26/22 17:47 Dose: Not Given Documented By: Admin: 01/26/22 12:39 Dose: 3 units Documented By: Co-signed By: STANLEY Admin: 01/26/22 09:17 Dose: 4 units Documented By: Co-signed By: STANLEY Admin: 01/25/22 20:38 Dose: Not Given Documented By: Admin: 01/25/22 16:52 Dose: Not Given Documented By: Admin: 01/25/22 12:29 Dose: 2 units Documented By: Co-signed By: JO Admin: 01/25/22 08:14 Dose: Not Given Documented By: Admin: 01/24/22 20:40 Dose: Not Given Documented By: Admin: 01/24/22 17:11 Dose: Not Given Documented By: Admin: 01/24/22 12:46 Dose: Not Given Documented By: Admin: 01/24/22 12:15 Dose: 2 units Documented By: HAYES Co-signed By: NILSON Insulin Glargine (Lantus Per Unit Charge) 5 units SQ NOW STA Stop: 01/24/22 07:22 Last Admin: 01/24/22 11:26 Dose: Not Given Documented By: HAYES Insulin Glargine (Lantus Per Unit Charge) 5 units SQ DAILY AMAURI Stop: 02/24/22 08:59 Last Admin: 01/27/22 08:15 Dose: 5 units Documented By: Co-signed By: MARY Admin: 01/26/22 09:18 Dose: 5 units Documented By: Co-signed By: STANLEY Admin: 01/25/22 09:59 Dose: Not Given Documented By: Insulin Glargine (Lantus Per Unit Charge) 5 units SQ NOW STA Stop: 01/24/22 11:26 Last Admin: 01/24/22 12:15 Dose: 5 units Documented By: HAYES Co-signed By: NILSON Lactobacillus Acidophilus (Advanced Probiotic 1250 Mg Capsule) 2 cap PO DAILY AMAURI Stop: 02/25/22 10:14 Last Admin: 01/27/22 08:20 Dose: 2 cap Documented By: Admin: 01/26/22 11:30 Dose: 2 cap Documented By: Levothyroxine Sodium (Levothyroxine Sodium 75 Mcg Tablet) 75 mcg PO DAILYBB AMAURI Stop: 02/23/22 10:29 Last Admin: 01/27/22 05:42 Dose: 75 mcg Documented By: Admin: 01/26/22 05:11 Dose: 75 mcg Documented By: Admin: 01/25/22 06:09 Dose: 75 mcg Documented By: Admin: 01/24/22 11:17 Dose: 75 mcg Documented By: HAYES Losartan Potassium (Losartan Potassium 50 Mg Tab) 50 mg PO NOW STA Stop: 01/24/22 07:11 Last Admin: 01/24/22 11:22 Dose: Not Given Documented By: HAYES Losartan Potassium (Losartan Potassium 25 Mg Tab) 25 mg PO NOW STA Stop: 01/24/22 07:13 Last Admin: 01/24/22 08:58 Dose: 25 mg Documented By: JENNIFER Losartan Potassium (Losartan Potassium 25 Mg Tab) 25 mg PO QAM AMAURI Stop: 02/24/22 08:59 Last Admin: 01/27/22 08:20 Dose: 25 mg Documented By: Admin: 01/26/22 08:06 Dose: 25 mg Documented By: Admin: 01/25/22 08:11 Dose: 25 mg Documented By: Memantine (Memantine Hcl 5 Mg Tab) 5 mg PO BID AMAURI Stop: 02/23/22 10:29 Last Admin: 01/27/22 08:21 Dose: 5 mg Documented By: Admin: 01/26/22 21:14 Dose: 5 mg Documented By: Admin: 01/26/22 08:06 Dose: 5 mg Documented By: Admin: 01/25/22 20:36 Dose: 5 mg Documented By: Admin: 01/25/22 08:11 Dose: 5 mg Documented By: Admin: 01/24/22 20:19 Dose: 5 mg Documented By: Admin: 01/24/22 11:17 Dose: 5 mg Documented By: HAYES Pantoprazole Sodium (Pantoprazole 40 Mg Tab) 40 mg PO DAILYBB AMAURI Stop: 02/24/22 06:29 Last Admin: 01/27/22 05:42 Dose: 40 mg Documented By: Admin: 01/26/22 05:11 Dose: 40 mg Documented By: Admin: 01/25/22 06:09 Dose: 40 mg Documented By: PAULINA Phenytoin Sodium (Phenytoin Sodium Er 100 Mg Cap) 200 mg PO ONE ONE Stop: 01/24/22 09:16 Last Admin: 01/24/22 10:08 Dose: 200 mg Documented By: NRB Phenytoin Sodium (Phenytoin Sodium Er 100 Mg Cap) 300 mg PO HS [facility] Stop: 02/23/22 20:59 Last Admin: 01/26/22 21:13 Dose: 300 mg Documented By: Admin: 01/25/22 20:35 Dose: 300 mg Documented By: Admin: 01/24/22 20:03 Dose: 300 mg Documented By: PAULINA Phenytoin Sodium (Phenytoin Sodium Er 100 Mg Cap) [facility] [place] Stop: 02/24/22 08:59 Last Admin: 01/27/22 08:20 Dose: 200 mg Documented By: Admin: 01/26/22 08:06 Dose: 200 mg Documented By: Admin: 01/25/22 08:11 Dose: 200 mg Documented By: Potassium Chloride (Potassium Chloride Crtab 20 Meq Tabcr) 20 meq PO NOW [facility] Stop: 01/26/22 08:13 Last Admin: 01/26/22 09:20 Dose: 20 meq Documented By: Rosuvastatin Calcium (Rosuvastatin Calcium 20 Mg Tab) 40 mg PO [facility] Stop: 02/23/22 20:59 Last Admin: 01/26/22 21:14 Dose: 40 mg Documented By: Admin: 01/25/22 20:36 Dose: 40 mg Documented By: Admin: 01/24/22 20:19 Dose: 40 mg Documented By: PAULINA Imaging Data Radiologist's Impression: Chest X-Ray 01/24/22 01:36 XR chest 1V portable HISTORY: 76 years-old Female weakness acute cough with weakness COMPARISON: Chest radiograph 08/21/2021, CT abdomen and pelvis 12/16/2019 TECHNIQUE: Portable AP view of the chest FINDINGS: Cardiac silhouette is enlarged. Unchanged opacity of the right cardiophrenic angle suggestive of a prominent epicardial fat pad. Mild subsegmental bibasilar atelectasis/scarring. No pneumothorax, pleural effusion, airspace consolidation or overt pulmonary edema. The patient is mildly rotated. Degenerative changes of the shoulders and spine. IMPRESSION: Cardiomegaly without acute process. ACT 112: Negative or not required by law. The above report was generated using voice recognition software. It may contain grammatical, syntax or spelling errors. Electronically signed by: Madi Gardner M.D. 01/24/2022 7:02 AM Blood Pressure Blood Pressure Findings: Elevated blood pressure Blood Pressure Disposition: further management by hospitalist Discharge Plan Visit Data Chief Complaint: Illness Stated Complaint: COVID + today, bedsores today ED Provider: Sandra Mendez Discharge Problem: Acute UTI, COVID-19, Weakness, Elevated lactic acid level Patient Disposition: Admitted As Inpatient Discharge Instructions Interventions: ED Discharge Assessment Last Done: 01/24/22 10:13
[2022-01-24] MEDS ORDERED: PHENYTOIN SODIUM ER 100 MG CAP PO SCH (21:00)
[2022-01-24 22:12] LABS: A calco-baum cmplx NotReported Not Detected (NotDetected); Bact fragilis Not Reported Not Detected (NotDetected); C auris Not Reported Not Detected (NotDetected); Calbicans Not Reported Not Detected (NotDetected); Candida glabrata Not Reported Not Detected (NotDetected); Candida krusei Not Reported Not Detected (NotDetected); Cneoformans/gatti Not Reported Not Detected (NotDetected); Cparapsilosis Not Reported Not Detected (NotDetected); Ctropicalis Not Reported Not Detected (NotDetected); E cloacae compx Not Reported Not Detected (NotDetected); Efaecalis Not Reported Not Detected (NotDetected); Efaecium Not Reported Not Detected (NotDetected); Enterobacterales Not Reported Not Detected (NotDetected); Escherichia coli Not Reported Not Detected (NotDetected); H influenzae Not Reported Not Detected (NotDetected); K aerogenes Not Reported Not Detected (NotDetected); Koxytoca Not Reported Not Detected (NotDetected); Kpneumoniae grp Not Reported Not Detected (NotDetected); Lmonocyt Not Reported Not Detected (NotDetected); N meningitidis Not Reported Not Detected (NotDetected); P aeruginosa Not Reported Not Detected (NotDetected); Proteus spp Not Reported Not Detected (NotDetected); Salmonella spp Not Reported Not Detected (NotDetected); Smarcescens Not Reported Not Detected (NotDetected); Staph lugdunensis Not Reported Not Detected (NotDetected); Staphaureus Not Reported Not Detected (NotDetected); Staphepi Not Reported Not Detected (NotDetected); Staphylococcus spp. DETECTED (NotDetected); Stenmaltophilia Not Reported Not Detected (NotDetected); Strep agal(GrpB) Not Reported Not Detected (NotDetected); Strep pneum Not Reported Not Detected (NotDetected); Strep pyog (GrpA) Not Reported Not Detected (NotDetected); Strep spp Not Reported Not Detected (NotDetected)
[2022-01-24 22:15] LABS: Staph spp. Not Reported DETECTED (NotDetected)
[2022-01-25] MEDS: PANTOprazole 40 MG TAB PO SCH (06:09)
[2022-01-25] MEDS: LEVOTHYROXINE SODIUM 75 MCG TABLET PO SCH (06:09)
[2022-01-25 07:16] LABS: Basophils # (auto) 0.03 K/uL (0-0.2); Basophils % (auto) 0.6 %; Eosinophils # (auto) 0.41 K/uL (0-0.50); Eosinophils % (auto) 8.5 %; Hematocrit (blood only) 33.5 % (34.1-44.9); Hemoglobin 10.4 g/dl (12.0-16.0); Immature Granulocytes # (auto) 0.02 K/uL (0.00-0.02); Immature Granulocytes % (auto) 0.4 %; Lymphocytes # (auto) 1.47 K/uL (1.2-3.4); Lymphocytes % (auto) 30.4 %; Mean Corpuscular Hemoglobin 25.4 pg (25.0-34.0); Mean Corpuscular Volume 81.9 fL (80.0-100.0); Mean Platelet Volume 9.9 fL (9.4-12.3); Monocytes # (auto) 0.48 K/uL (0.24-0.82); Monocytes % (auto) 9.9 %; Neutrophils # (auto) 2.42 K/uL (1.4-6.5); Neutrophils % (auto) 50.2 %; Platelet Count 176 K/uL (130-400); RDW Coefficient of Variation 15.6 % (11.5-14.5); RDW Standard Deviation 46.5 fL (36.4-46.3); Red Blood Count 4.09 M/uL (3.93-5.22); White Blood Count 4.83 K/ul (4.8-10.8)
[2022-01-25 07:42] LABS: BUN Creatinine Ratio 14.8 (10-20); Calcium 8.3 mg/dl (8.5-10.1); Est GFR (African American) 74.5 ml/min; Est GFR (Non-African American) 64.3 ml/min; Magnesium 1.7 mg/dl (1.7-2.4); Phosphorus 3.4 mg/dl (2.5-4.9); Potassium 3.7 mmol/L (3.5-5.1)
[2022-01-25] MEDS: MEMANTINE HCL 5 MG TAB PO SCH ×2 (08:11→20:36)
[2022-01-25] MEDS: guaiFENesin 600 MG TABCR PO SCH ×2 (08:11→20:37)
[2022-01-25] MEDS: PHENYTOIN SODIUM ER 100 MG CAP PO SCH ×2 (08:11→20:35)
[2022-01-25] MEDS: LOSARTAN POTASSIUM 25 MG TAB PO SCH (08:11)
[2022-01-25] MEDS: ASPIRIN 81 MG ECTAB PO SCH (08:12)
[2022-01-25] MEDS: BENZONATATE 100 MG CAPSULE PO SCH ×3 (08:12→20:35)
[2022-01-25] MEDS: amLODIPine BESYLATE 5 MG TAB PO SCH (08:12)
[2022-01-25] MEDS: FOLIC ACID 1 MG TAB PO SCH (08:12)
[2022-01-25] MEDS: DOCUSATE SODIUM 100 MG CAP PO SCH ×2 (08:12→20:36)
[2022-01-25] MEDS: INSULIN ASPART PER UNIT SC SCH ×4 (08:14→20:38)
[2022-01-25] MEDS: ENOXAPARIN INJ 40 MG/0.4 ML SYR SQ SCH (08:15)
[2022-01-25] MEDS: CEFEPIME 1,000 MG in SYRINGE 0 ML IV SCH ×2 (08:15→20:38)
[2022-01-25] MEDS: LANTUS PER UNIT CHARGE SQ SCH (09:59)
--- NOTE | 2022-01-25 15:21 | Hospitalist Progress Note ---
Date of Service January 25, 2022 Assessment & Plan (1) Complicated UTI (urinary tract infection): Plan 76-year-old lady with PMH of CVA, PVD, DM2, hypertension, hypothyroidism, chronic anemia [baseline hemoglobin 11], dementia and seizure disorder presented to ED 01/24 with complaint of not feeling well for the last few days and ongoing nonproductive cough without chest pain or shortness of breath since last 2 to 3 weeks CHAPLAIN. Patient completed COVID-19 vaccination. She is being managed for the following: Complicated UTI: Patient complaining of burning while passing urine since last 1 week CHAPLAIN, given Zosyn in the ED, continue with cefepime 01/24, follow urine culture. COVID-19 infection: Patient vaccinated against COVID. Patient on room air, reports having dry cough for 2 to 3 weeks CHAPLAIN, about the same, Tessalon Perles and Mucinex. Symptomatic management. HTN: BP elevated at presentation, likely 2/2 illness. Trop elevation minimal and likely 2/2 elevated BP. Pt w/ no chest pain. Other chronic medical conditions: HTN, CVA, PVD, DM2, hypothyroidism, seizure disorder [stable on regimen], dementia --->> continue with/resume home meds as and when able. DVT prophylaxis: Lovenox subcu Full code Patient's son Mr. Keith Lemon [[phone]]. Called and updated 01/24. Dispo: Likely can DC with PT/OT recommendation, CM to assist with DC planning. Med/surg. Text document was generated using voice recognition software. It may contain grammatical or spelling errors. Kindly contact undersigned for clarification of any documentation item in question. Admission and Anticipated Discharge Date Admission Date: January 24, 2022 Subjective Patient seen and examined at bedside as a follow-up of complicated UTI and COVID-19 infection. Patient was lying in bed semiupright, on room air, denies any new acute events overnight, reports having ongoing cough for 2 to 3 weeks which is about the same and mostly dry, also reports improving burning sensation while passing urine. Patient denies any fever/headache/chills/chest pain/palpitations/belly pain/diarrhea/other review of symptoms. Physical Exam Physical Exam: GENERAL: Alert and oriented x3. NAD, on RA. HEENT: No pallor, no icterus. Pupils equal, round and reactive to light. Oral mucosa moist. NECK: No JVD, no neck masses. HEART: S1 and S2 heard. Regular rate and rhythm. No murmur, no gallop. RESPIRATORY SYSTEM: Normal AP diameter. No accessory muscle use. No wheezing, no crackles. ABDOMEN: Soft, bowel sounds present, nontender, no distention. CENTRAL NERVOUS SYSTEM: No facial droop. Speech is clear. Obeys simple commands. Moves extremities. EXTREMITIES: No edema, no erythema seen. Chronic RUE spastic contracture and paresis. Results & Data Results & Data ([facility]) Vital Signs (Past 12 Hours) Vital Signs Temp Pulse Resp BP Pulse Ox O2 Del Method 01/25/22 15:15 36.7 C 84 18 166/89 H 97 Room Air 01/25/22 11:57 36.7 C 80 17 157/82 H 98 Room Air 01/25/22 07:51 36.8 C 78 18 168/89 H 96 Room Air 01/25/22 04:39 36.6 C 80 17 168/98 H 97 Room Air
[2022-01-25] MEDS: ROSUVASTATIN CALCIUM 20 MG TAB PO SCH (20:36)
[2022-01-26] MEDS: PANTOprazole 40 MG TAB PO SCH (05:11)
[2022-01-26] MEDS: LEVOTHYROXINE SODIUM 75 MCG TABLET PO SCH (05:11)
[2022-01-26 06:37] LABS: BUN Creatinine Ratio 18.1 (10-20); Calcium 8.6 mg/dl (8.5-10.1); Creatinine Clr Calc Pharmacy 41.1 ml/min; Est GFR (African American) 60.2 ml/min; Est GFR (Non-African American) 51.9 ml/min; Potassium 3.6 mmol/L (3.5-5.1)
[2022-01-26] MEDS: amLODIPine BESYLATE 5 MG TAB PO SCH (08:04)
[2022-01-26] MEDS: guaiFENesin 600 MG TABCR PO SCH ×2 (08:05→21:14)
[2022-01-26] MEDS: BENZONATATE 100 MG CAPSULE PO SCH ×3 (08:05→21:15)
[2022-01-26] MEDS: FOLIC ACID 1 MG TAB PO SCH (08:05)
[2022-01-26] MEDS: ASPIRIN 81 MG ECTAB PO SCH (08:05)
[2022-01-26] MEDS: LOSARTAN POTASSIUM 25 MG TAB PO SCH (08:06)
[2022-01-26] MEDS: DOCUSATE SODIUM 100 MG CAP PO SCH ×2 (08:06→21:13)
[2022-01-26] MEDS: PHENYTOIN SODIUM ER 100 MG CAP PO SCH ×2 (08:06→21:13)
[2022-01-26] MEDS: ENOXAPARIN INJ 40 MG/0.4 ML SYR SQ SCH (08:06)
[2022-01-26] MEDS: MEMANTINE HCL 5 MG TAB PO SCH ×2 (08:06→21:14)
[2022-01-26] MEDS ORDERED: POTASSIUM CHLORIDE CRTAB 20 MEQ TABCR PO STA (08:12)
[2022-01-26] MEDS: CEFEPIME 1,000 MG in SYRINGE 0 ML IV SCH ×2 (08:21→21:13)
[2022-01-26] MEDS: INSULIN ASPART PER UNIT SC SCH ×4 (09:17→20:53)
[2022-01-26] MEDS: LANTUS PER UNIT CHARGE SQ SCH (09:18)
[2022-01-26] MEDS: ADVANCED PROBIOTIC 1250 MG CAPSULE PO SCH (11:30)
[2022-01-26 12:53] LABS: Adenovirus F 40/41 PCR Not Detected (NotDetected); Astrovirus PCR Not Detected (NotDetected); Campylobacter PCR Not Detected (NotDetected); Clostridium diff Toxin A/B PCR Not Detected (NotDetected); Cryptosporidium PCR Not Detected (NotDetected); Cyclospora cayetanensis PCR Not Detected (NotDetected); Entamoeba histolytica PCR Not Detected (NotDetected); Enteroaggregative E.coli(EAEC) Not Detected (NotDetected); Enteropathogenic E.coli (EPEC) Not Detected (NotDetected); Enterotoxigenic E.coli (ETEC) Not Detected (NotDetected); Giardia lamblia PCR Not Detected (NotDetected); Norovirus GI/GII PCR Not Detected (NotDetected); Plesiomonas shigelloides PCR Not Detected (NotDetected); Rotavirus A PCR Not Detected (NotDetected); Salmonella PCR Not Detected (NotDetected); Sapovirus PCR Not Detected (NotDetected); Shiga-like Toxin E.coli (STEC) Not Detected (NotDetected); Shigella/Enteroinvasive E.coli Not Detected (NotDetected); Vibrio cholerae PCR Not Detected (NotDetected); Vibrio species PCR Not Detected (NotDetected); Yersinia enterocolitica PCR Not Detected (NotDetected)
--- NOTE | 2022-01-26 14:43 | Hospitalist Progress Note ---
Date of Service January 26, 2022 Assessment & Plan (1) Complicated UTI (urinary tract infection): Plan 76-year-old lady with PMH of CVA, PVD, DM2, hypertension, hypothyroidism, chronic anemia [baseline hemoglobin 11], dementia and seizure disorder presented to ED 01/24 with complaint of not feeling well for the last few days and ongoing nonproductive cough without chest pain or shortness of breath since last 2 to 3 weeks PMP. Patient completed COVID-19 vaccination. She is being managed for the following: Complicated UTI: Patient complaining of burning while passing urine since last 1 week PMP, given Zosyn in the ED, continue with cefepime 01/24, follow urine culture. COVID-19 infection: Patient vaccinated against COVID. Patient on room air, reports having dry cough for 2 to 3 weeks PMP, improving, Tessalon Perles and Mucinex. Symptomatic management. HTN: BP elevated at presentation, likely 2/2 illness. Trop elevation minimal and likely 2/2 elevated BP. Pt w/ no chest pain. Diarrhea: Patient had multiple loose stools 01/18 8 AM, stool PCR negative. Pedialyte by bedside. Monitor and replete electrolytes. Probiotics added. Other chronic medical conditions: HTN, CVA, PVD, DM2, hypothyroidism, seizure disorder [stable on regimen], dementia --->> continue with/resume home meds as and when able. DVT prophylaxis: Lovenox subcu Full code Patient's son Mr. Keith Lemon [[phone]]. Called and updated 01/24. Dispo: Likely can DC tomorrow with PT/OT recommendation, CM to assist with DC planning. Med/surg. Text document was generated using voice recognition software. It may contain grammatical or spelling errors. Kindly contact undersigned for clarification of any documentation item in question. Admission and Anticipated Discharge Date Admission Date: January 24, 2022 Subjective Patient seen and examined at bedside as a follow-up of complicated UTI and COVID-19 infection. Patient was lying in bed semiupright, on room air, denies any new acute events overnight, had softer stools yesterday and 3-4 very loose stools today morning. Stool PCR negative. Reports eating okay. Reports cough improving. Also reports improving burning sensation while passing urine. Patient denies any fever/headache/chills/chest pain/palpitations/belly pain/diarrhea/other review of symptoms. Physical Exam Physical Exam: GENERAL: Alert and oriented x3. NAD, on RA. HEENT: No pallor, no icterus. Pupils equal, round and reactive to light. Oral mucosa moist. NECK: No JVD, no neck masses. HEART: S1 and S2 heard. Regular rate and rhythm. No murmur, no gallop. RESPIRATORY SYSTEM: Normal AP diameter. No accessory muscle use. No wheezing, no crackles. ABDOMEN: Soft, bowel sounds present, nontender, no distention. CENTRAL NERVOUS SYSTEM: No facial droop. Speech is clear. Obeys simple commands. Moves extremities. EXTREMITIES: No edema, no erythema seen. Chronic RUE spastic contracture and paresis. Results & Data Results & Data ([facility]) Vital Signs (Past 12 Hours) Vital Signs Temp Pulse Resp BP Pulse Ox O2 Del Method 01/26/22 11:52 36.8 C 79 20 145/76 H 96 Room Air 01/26/22 07:38 36.6 C 86 18 180/84 H 97 Room Air
[2022-01-26] MEDS: ROSUVASTATIN CALCIUM 20 MG TAB PO SCH (21:14)
[2022-01-27] MEDS ORDERED: ALBUT/IPRATROP 3MG/0.5MG NEB 3 ML VIAL NEB STA (00:43)
[2022-01-27] MEDS: PANTOprazole 40 MG TAB PO SCH (05:42)
[2022-01-27] MEDS: LEVOTHYROXINE SODIUM 75 MCG TABLET PO SCH (05:42)
[2022-01-27] MEDS: INSULIN ASPART PER UNIT SC SCH ×2 (08:14→12:01)
[2022-01-27] MEDS: LANTUS PER UNIT CHARGE SQ SCH (08:15)
[2022-01-27] MEDS: PHENYTOIN SODIUM ER 100 MG CAP PO SCH (08:20)
[2022-01-27] MEDS: ADVANCED PROBIOTIC 1250 MG CAPSULE PO SCH (08:20)
[2022-01-27] MEDS: LOSARTAN POTASSIUM 25 MG TAB PO SCH (08:20)
[2022-01-27] MEDS: MEMANTINE HCL 5 MG TAB PO SCH (08:21)
[2022-01-27] MEDS: CEFEPIME 1,000 MG in SYRINGE 0 ML IV SCH (08:21)
[2022-01-27] MEDS: DOCUSATE SODIUM 100 MG CAP PO SCH ×2 (08:21→08:25)
[2022-01-27] MEDS: guaiFENesin 600 MG TABCR PO SCH (08:21)
[2022-01-27] MEDS: ENOXAPARIN INJ 40 MG/0.4 ML SYR SQ SCH (08:21)
[2022-01-27] MEDS: ASPIRIN 81 MG ECTAB PO SCH (08:21)
[2022-01-27] MEDS: FOLIC ACID 1 MG TAB PO SCH (08:21)
[2022-01-27] MEDS: BENZONATATE 100 MG CAPSULE PO SCH ×2 (08:21→14:30)
[2022-01-27] MEDS: amLODIPine BESYLATE 5 MG TAB PO SCH (08:21)
[2022-01-27 08:24] LABS: Calcium 8.5 mg/dl (8.5-10.1); Creatinine Clr Calc Pharmacy 40.7 ml/min; Est GFR (African American) 59.5 ml/min; Est GFR (Non-African American) 51.3 ml/min; Magnesium 1.8 mg/dl (1.7-2.4); Phosphorus 2.6 mg/dl (2.5-4.9); Potassium 3.7 mmol/L (3.5-5.1)
--- NOTE | 2022-01-27 08:26 | XRay Report ---
SINGLE VIEW CHEST CLINICAL HISTORY: Rhonchi FINDINGS: 2 AP, portable, upright chest radiographs are compared to study dated 01/24/2022. The heart is enlarged noting atherosclerotic calcification of the thoracic aorta. The pulmonary vasculature is noncongested. There is bibasilar atelectasis. No airspace consolidation or large pleural effusion is identified. No pneumothorax is seen. The skeletal structures are osteopenic. The bony thorax is gross ly intact. IMPRESSION: No acute cardiopulmonary abnormality. ACT 112: Negative or not required by law. Electronically signed by: Kalen Valdes M.D. 01/27/2022 8:24 AM
--- NOTE | 2022-01-27 11:45 | Discharge Summary ---
Date of Service January 27, 2022 Admission HPI Per Admitting Provider History obtained from patient and records. Medical history significant for hypertension, CVA, PVD, DM2 on oral medications, hypothyroidism, chronic anemia (baseline hemoglobin 11), dementia, seizure disorder. Last confinement May 2021 for delirium, supratherapeutic Dilantin levels. Patient not feeling well the last few days. Nonproductive cough without chest pain or shortness of breath. Poor appetite. Dysuria symptoms without flank/abdominal pain/hematuria. No fever, some chills. Sick COVID-19 contacts in the family. Patient completed COVID-19 vaccination. Zosyn given at the ER for UTI. 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 Admission Exam Per Admitting Provider GENERAL: Slightly uncomfortable, pleasant, no respiratory distress SKIN: Pallor, warm HEENT: Pale palpebral conjunctivae, no ptosis, dry buccal mucosa NECK : Supple, no tenderness CHEST : Decreased breath sounds, occasional expiratory wheezes, no tenderness HEART : RRR, no obvious murmurs ABDOMEN: Some distention, nontender EXTREMITIES : No LE swelling/tenderness, chronic RUE spastic contracture NEUROLOGIC : Coherent, no facial asymmetry, chronic RUE paresis, gait and stance not assessed Principal Diagnosis COVID-19 infection Complicated UTI Discharge Exam GENERAL: Alert and oriented x3. NAD, on RA. HEENT: No pallor, no icterus. Pupils equal, round and reactive to light. Oral mucosa moist. NECK: No JVD, no neck masses. HEART: S1 and S2 heard. Regular rate and rhythm. No murmur, no gallop. RESPIRATORY SYSTEM: Normal AP diameter. No accessory muscle use. No wheezing, no crackles. ABDOMEN: Soft, bowel sounds present, nontender, no distention. CENTRAL NERVOUS SYSTEM: No facial droop. Speech is clear. Obeys simple commands. Moves extremities. EXTREMITIES: No edema, no erythema seen. Chronic RUE spastic contracture and paresis. 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 Patient completed COVID-19 vaccination. 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 Patient reports improvement in symptoms. COVID-19 infection: Patient vaccinated against COVID. 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 Maintain self-isolation for 5 days from diagnosis date. Then wear masks around people for next 5 days. HTN: BP elevated at presentation, likely 2/2 illness. Trop elevation minimal and likely 2/2 elevated BP. Pt w/ no chest pain. Blood pressure monitoring will be needed as an outpatient to see if she needs any medication dose adjustment. Patient to follow-up with PCP as an outpatient for the same. Diarrhea: Patient had multiple loose stools 01/18 8 AM, stool PCR negative. Pedialyte by bedside. Bowel movement consistency and frequency improving, home dose of stool softener held upon discharge. Other chronic medical conditions: HTN, CVA, PVD, DM2, hypothyroidism, seizure disorder [stable on regimen], dementia --->> continue with/resume home meds as and when able. DVT prophylaxis: Lovenox subcu Full code Patient's son Mr. Keith Lemon [[phone]]. Called and updated 01/24. Patient being discharged to home with family assist and 22/12 supervision with following instruction at the point of discharge: Follow-up with your primary care physician within a week time. Complete the course of antibiotic for your UTI. Probiotics will be added. Maintain self-isolation for COVID for 5 days since your diagnosis 01/24/2022, then use mask when around people for next 5 days. Your Dilantin level was low at admission, your Dilantin dose has been increased in the evening from 200 to 300 mg, morning dose is the same at 200 mg. You will need to repeat Dilantin level checked in 7 to 10 days and have necessary adjustment of the doses as appropriate. Call your PCP office to set up the test. Follow-up with your PCP or neurology as outpatient for this. Get your blood work CBC and CMP done in a week time and have the results forwarded to your primary care physician. Call your PCP office to set up the test. Take your medications as prescribed. Text document was generated using voice recognition software. It may contain grammatical or spelling errors. Kindly contact undersigned for clarification of any documentation item in question. Total Time Total Time Spent Total Time Spent (In Minutes): 40 Discharge Plan Discharge Items Patient Disposition: Home - Self-Care Reason For Visit: COMP UTI, COVID Discharge Diagnosis: COVID-19 infection Complicated UTI Activity: Resume your previous activity Non-emergency contact: Primary Care Provider Call non-emergency contact if: you have any medication questions, your symptoms worsen and your temperature is above 101 Follow-up/Referrals: PCP,NO [Primary Care Provider] - Diet: Carb Count or DM1 and Heart Healthy Addtl Attending Provider Instructions: Follow-up with your primary care physician within a week time. Complete the course of antibiotic for your UTI. Probiotics will be added. Maintain self-isolation for COVID for 5 days since your diagnosis 01/24/2022, then use mask when around people for next 5 days. Your Dilantin level was low at admission, your Dilantin dose has been increased in the evening from 200 to 300 mg, morning dose is the same at 200 mg. You will need to repeat Dilantin level checked in 7 to 10 days and have necessary adjustment of the doses as appropriate. Call your PCP office to set up the test. Follow-up with your PCP or neurology as outpatient for this. Get your blood work CBC and CMP done in a week time and have the results forwarded to your primary care physician. Call your PCP office to set up the test. Take your medications as prescribed. Pending Studies at Discharge: No Stand-Alone Forms: [employer], Smoking Cessation Medications and DC Order Prescriptions: New phenytoin sodium extended [Dilantin Extended] 100 mg Capsule 300 mg PO HS Qty: 90 0RF Advanced Probiotic 625 mg (10 billion cell) Capsule 2 cap PO DAILY 10 Days Qty: 20 0RF benzonatate 100 mg Capsule 100 mg PO TID 5 Days Qty: 15 0RF guaifenesin [Mucinex] 600 mg Tablet Extended Release 12hr 600 mg PO Q12 5 Days Qty: 10 0RF cefdinir 300 mg capsule 300 mg PO BID 3 Days Qty: 6 0RF Continued metformin 500 mg tablet extended release 24 hr 1,000 mg PO QAM rosuvastatin 40 mg tablet 40 mg PO HS aspirin 81 mg Tablet,Chewable 81 mg PO QAM cholecalciferol (vitamin D3) [Vitamin D3] 125 mcg (5,000 unit) Tablet 125 mcg PO DAILY amlodipine [Norvasc] 5 mg Tablet 2.5 mg PO QAM Qty: 15 0RF levothyroxine 75 mcg tablet 75 mcg PO DAILY folic acid 1 mg tablet 1 mg PO DAILY memantine 5 mg tablet 5 mg PO BID pantoprazole 40 mg tablet,delayed release (DR/EC) 40 mg PO DAILYBB Changed phenytoin sodium extended 100 mg capsule 200 mg PO QAM Qty: 60 0RF losartan 50 mg tablet 25 mg PO QPM Qty: 30 0RF Discontinued docusate sodium 100 mg capsule PO BID Discharge Orders: Discharge Order (Routine); Ordered 01/27/22 Ordered By: Umberto Santillan/Other Patient Handouts: Managing Type 2 Diabetes Admission Data Admit Date/Time: 01/24/22 07:10 Attending Provider: Umberto Luciano Admit Provider: Abraham Nye Primary Care Provider: [id number]
== END 2022-01-27 16:36 | disposition home or self-care (01) | DRG 178 ==
LOC: ED 01:11 → EDINP 07:10 → SUATTDRO 07:10 → 2S 10:13

== ENCOUNTER 2022-03-15 00:19 | Inpatient (IN) ==
[2022-03-15 00:46] LABS: Basophils # (auto) 0.02 K/uL (0-0.2); Basophils % (auto) 0.3 %; Eosinophils # (auto) 0.01 K/uL (0-0.50); Eosinophils % (auto) 0.2 %; Hematocrit (blood only) 36.2 % (34.1-44.9); Hemoglobin 11.4 g/dl (12.0-16.0); Immature Granulocytes # (auto) 0.03 K/uL (0.00-0.02); Immature Granulocytes % (auto) 0.5 %; Lymphocytes # (auto) 0.39 K/uL (1.2-3.4); Lymphocytes % (auto) 6.1 %; Mean Corpuscular Hemoglobin 25.3 pg (25.0-34.0); Mean Corpuscular Hgb Conc 31.5 g/dL (32.0-36.0); Mean Corpuscular Volume 80.4 fL (80.0-100.0); Mean Platelet Volume 9.5 fL (9.4-12.3); Monocytes # (auto) 0.24 K/uL (0.24-0.82); Monocytes % (auto) 3.8 %; Neutrophils # (auto) 5.71 K/uL (1.4-6.5); Neutrophils % (auto) 89.1 %; Platelet Count 218 K/uL (130-400); RDW Coefficient of Variation 15.9 % (11.5-14.5); RDW Standard Deviation 45.8 fL (36.4-46.3)
[2022-03-15 00:53] LABS: Appearance Urine Turbid (Clear); Bacteria Urine Automated 1+ (Negative); Bilirubin Urine Negative (Negative); Blood Urine 2+ (Negative); Color Urine Yellow; Glucose Urine UA Negative (Negative); Ketones Urine Negative (Negative); Leukocyte Esterase Urine 3+ (Negative); Nitrite Urine Negative (Negative); Protein Urine 2+ (Negative); Specific Gravity Urine 1.016 (1.000-1.030); Urobilinogen Urine Negative (Negative); WBC Urine Automated >30 /hpf (0-5)
[2022-03-15 01:11] LABS: Albumin Globulin Ratio 1.1 (0.9-2); Albumin Level 3.8 gm/dl (3.4-5.0); Bilirubin,Total 0.9 mg/dl (0.2-1.0); Calcium 8.8 mg/dl (8.5-10.1); Creatinine Clr Calc Pharmacy 38.4 ml/min; Est GFR (African American) 53.5 ml/min; Est GFR (Non-African American) 46.2 ml/min; Globulin 3.4 gm/dl (2.5-4.0); Potassium 3.9 mmol/L (3.5-5.1); Total Protein 7.2 gm/dl (6.0-8.3)
[2022-03-15 01:22] LABS: Magnesium 1.6 mg/dl (1.7-2.4)
[2022-03-15 01:28] LABS: INR 1.1 (0.9-1.1); Partial Thromboplastin Ratio 1.1; Partial Thromboplastin Time 30.6 Seconds (21.0-31.0); Prothrombin Time 11.4 Seconds (9.0-12.0)
[2022-03-15] MEDS ORDERED: SODIUM CHLORIDE 0.9% 1000ML 1,000 ML IV ONE (01:40)
[2022-03-15] MEDS ORDERED: ACETAMINOPHEN 500 MG TAB PO STA (01:40)
[2022-03-15] MEDS ORDERED: PIPERACILLIN/TAZOBACTAM 4.5 GM/120 ML BAG IV ONE (01:49)
--- NOTE | 2022-03-15 01:55 | Emergency Department Note ---
Impression & Plan Acute UTI, Elevated troponin Admit to the [facility] ED Provider Note NAME: BRADY MONTERO AGE: 77 SEX: F ARRIVES VIA: Ambulance INFORMANT: Patient ED PROVIDER(S): Mena Calixto DO CHIEF COMPLAINT: Dysuria PLAN: Disposition: Admit to the [facility] Condition: Guarded MEDICAL DECISION MAKING: This is a 77-year-old female patient with history of diabetes and previous UTIs who presents to the emergency department with dysuria. Over the past 2 days, the patient has noticed increasing dysuria. She has noticed increasing episodes of hyperglycemia. She had some nausea and vomiting. Patient has some ST segment depression noted on her EKG with an elevated troponin. This is most likely demand ischemia but this will need to be followed. She was treated with IV Zosyn here in the emergency department for her urine. She appears quite dehydrated on physical exam. I discussed the case with the [facility] Hospitalist and they will evaluate for further management. Triage Nursing notes reviewed and agree with them. Prior medical records reviewed including urine cultures Vital Signs: reviewed and remarkable for hypertension, tachycardia and fever Differential diagnosis: Sepsis, UTI, dehydration ER treatment provided: IV normal saline bolus IV Zosyn Oral Tylenol Diagnostics interpreted by me: Cardiac Monitoring: Sinus tachycardia at a rate of 112 ECG: Sinus tachycardia at [address] segment depression in the inferior leads and lateral leads. This is slightly concerning for ischemia. There is no ectopy Laboratory studies: See below HPI: 77/F arrives for evaluation of dysuria. The patient describes dysuria over the past 48 hours. The patient developed an episode of nausea and vomiting earlier today. She also has noted that her blood sugars are elevated. The patient has had previous urinary tract infections in the past and believes that may be what was happening today. Patient also noted that she had a fever earlier today. ROS: See above HPI for pertinent positives & negatives. A total of 10 systems reviewed and were otherwise negative. PAST MEDICAL HISTORY:See Below PAST SURGICAL HISTORY:See Below FAMILY HISTORY:See Below SOCIAL HISTORY:See Below HOME MEDICATIONS:See list ALLERGIES:See list VITALS:See Below PHYSICAL EXAMINATION: HEENT: Head - normocephalic and atraumatic. Pupils are equal, round, and reactive to light. Extraocular eye muscles are intact, and sclera are anicteric. Nose - moist nasal mucosa without discharge. Mouth - moist buccal mucosa. Oropharynx is nonerythematous and there is no tonsillar exudate or edema noted. Neck: Supple; no cervical lymphadenopathy noted Heart: Regular rate and rhythm. There is a normal S1 and S2 with no murmurs, clicks, or gallops appreciated. Lungs: Clear to auscultation bilaterally with no wheezes, rales, or rhonchi. Abdomen: Soft, completely nontender, nondistended, with good bowel sounds. There are no palpable pulsatile masses or hepatosplenomegaly. There is no guarding, rigidity, or rebound noted. Extremities: No evidence of cyanosis, clubbing, or edema. There are easily palpable peripheral pulses. Skin: warm and dry with good turgor and no rashes. ED COURSE: Times/Reassessments: 0055: Patient was evaluated in room B6. A complete history and physical was performed. A septic protocol was performed. The patient was bolused with IV normal saline solution. She was given oral dose of Tylenol. An order was placed for continuous cardiac monitoring. The patient was in a sinus tachycardia at 112. A twelve-lead EKG was obtained. Patient was given a dose of IV Zosyn here in the emergency department. I reviewed the results of laboratory studies with the patient. I discussed the c ase with the [facility]ist. Mena Calixto, Past Med/Surg History Medical History Anemia Carotid artery stenosis CKD (chronic kidney disease), stage III Depression Diabetes mellitus, type II Diabetic nephropathy History of CVA (cerebrovascular accident) hx L MCA CVA with RHP 2001 HTN (hypertension) Hyperlipidemia Hypothyroid Overactive bladder Seizure disorder s/p CVA...20 years since last seizure TIA (transient ischemic attack) 2001 - no residual effects - does not follow doctor Surgical History History of appendectomy History of cholecystectomy History of colonoscopy Hx of cataract extraction right eye Family History Father Cancer Brother Myocardial infarction Social History Smoking Status: Never smoker Second Hand Exposure: No; Do You Dip or Chew Tobacco: No; Tobacco Cessation Education Requested by Patient: No Hx Alcohol Use: No Hx Substance Use: No Preferred Language: Turkmen Communication Ability: Effective Medicare Specialist Required: No Beliefs That Will Affect Care: None Current Living Situation: Family Current Living Situation Comment: w/son Keith How many Children do You have: 3 Other Information That Helps Us Care for You: No Feels Safe at Home: Yes Safety Concerns: Feels Safe At This Time Assistive Devices: Wheelchair Allergies Allergies Allergy/AdvReac Type Severity Reaction Status Date / Time labetalol AdvReac Intermediate nausea/vomi Verified 03/15/22 01:04 ting lisinopril AdvReac Intermediate Dizziness Verified 03/15/22 01:04 Home Meds Home Medications Medication Instructions Recorded Confirmed metformin 500 mg tablet,extended 1,000 mg PO QAM 04/15/19 03/15/22 release 24 hr rosuvastatin 40 mg tablet 40 mg PO HS 04/15/19 03/15/22 pantoprazole 40 mg tablet,delayed 40 mg PO DAILYBB 05/07/21 03/15/22 release folic acid 1 mg tablet 1 mg PO QAM 01/24/22 03/15/22 levothyroxine 75 mcg tablet 75 mcg PO DAILYBB 01/24/22 03/15/22 amlodipine 2.5 mg tablet 2.5 mg PO QAM 03/15/22 03/15/22 aspirin 81 mg tablet,delayed 81 mg PO DAILY 03/15/22 03/15/22 release cholecalciferol (vitamin D3) 25 50 mcg PO QAM 03/15/22 03/15/22 mcg (1,000 unit) tablet (Vitamin D3) docusate sodium 100 mg capsule 100 mg PO AMHS 03/15/22 03/15/22 folic acid 1 mg tablet 1 mg PO QAM 03/15/22 03/15/22 loratadine 10 mg tablet 10 mg PO HS 03/15/22 03/15/22 losartan 25 mg tablet 25 mg PO DAILY 03/15/22 03/15/22 memantine 10 mg tablet 10 mg PO AMHS 03/15/22 03/15/22 Previous Rx's Medication Instructions Recorded phenytoin sodium extended 100 mg 200 mg PO QAM #60 caps 01/27/22 capsule phenytoin sodium extended 100 mg 300 mg PO HS #90 caps 08/29/22 capsule (Dilantin Extended) Results & Data (ED) Vital Signs Vital Signs - 24 hr 03/15/22 00:25 03/15/22 01:05 03/15/22 01:30 Temperature 38.9 C H Temperature Source Oral Pulse Rate 109 H 112 H Pulse Rate from SpO2 Sensor 112 H Respiratory Rate 22 25 H Respiratory Effort / Characteristics Non-Labored Spontaneous Respiratory Depth Normal Respiratory Pattern Regular Blood Pressure 180/80 H 148/120 H Blood Pressure Mean 113 129 Blood Pressure Position Lying Pulse Oximetry 97 97 97 Oxygen Delivery Method Room Air Room Air Sepsis Recent Fever Within 48 Hours Yes Sepsis New/Unexplained Change in Mental Status No Sepsis Action Taken by Nursing Physician Notified 03/15/22 02:00 03/15/22 02:30 03/15/22 03:18 Temperature 36.9 C Temperature Source Oral Pulse Rate 110 H 104 H Pulse Rate from SpO2 Sensor 109 H 104 H Respiratory Rate 25 H 25 H Respiratory Effort / Characteristics Respiratory Depth Respiratory Pattern Blood Pressure 157/82 H 159/56 H Blood Pressure Mean 107 90 Blood Pressure Position Pulse Oximetry 97 97 Oxygen Delivery Method Sepsis Recent Fever Within 48 Hours Sepsis New/Unexplained Change in Mental Status Sepsis Action Taken by Nursing 03/15/22 03:01 03/15/22 03:30 03/15/22 04:00 Temperature Temperature Source Pulse Rate 105 H 100 H 96 H Pulse Rate from SpO2 Sensor 103 H 102 H 96 H Respiratory Rate 21 22 20 Respiratory Effort / Characteristics Respiratory Depth Respiratory Pattern Blood Pressure 136/56 L 151/118 H 129/66 Blood Pressure Mean 82 129 87 Blood Pressure Position Pulse Oximetry 97 98 98 Oxygen Delivery Method Sepsis Recent Fever Within 48 Hours Sepsis New/Unexplained Change in Mental Status Sepsis Action Taken by Nursing Laboratory Data Result diagrams: 03/15/22 07:45 03/15/22 07:45 Lab Results 03/15/22 03/15/22 03/15/22 Range/Units 00:33 00:33 00:33 WBC 6.40 (4.8-10.8) K/ul RBC 4.50 (3.93-5.22) M/uL Hgb 11.4 L (12.0-16.0) g/dl Hct 36.2 (34.1-44.9) % MCV 80.4 (80.0-100.0) fL MCH 25.3 (25.0-34.0) pg MCHC 31.5 L (32.0-36.0) g/dL RDW Std Deviation 45.8 (36.4-46.3) fL RDW Coeff of Maurice 15.9 H (11.5-14.5) % Plt Count 218 (130-400) K/uL MPV 9.5 (9.4-12.3) fL Immature Gran % (Auto) 0.5 % Neut % (Auto) 89.1 % Lymph % (Auto) 6.1 % [place] % (Auto) 3.8 % Eos % (Auto) 0.2 % Baso % (Auto) 0.3 % Neut # (Auto) 5.71 (1.4-6.5) K/uL Lymph # (Auto) 0.39 L (1.2-3.4) K/uL [place] # (Auto) 0.24 (0.24-0.82) K/uL Eos # (Auto) 0.01 (0-0.50) K/uL Baso # (Auto) 0.02 (0-0.2) K/uL Immature Gran # (Auto) 0.03 H (0.00-0.02) K/uL PT (9.0-12.0) Seconds INR (0.9-1.1) APTT (21.0-31.0) Seconds PTT Ratio Sodium 132 L (136-145) mmol/L Potassium 3.9 (3.5-5.1) mmol/L Chloride 98 (98-107) mmol/L Carbon Dioxide 25 (21-32) mmol/L Anion Gap 9 (3-11) BUN 15 (6-23) mg/dl Creatinine 1.15 (0.6-1.2) mg/dl Est Cr Clr Drug Dosing 38.4 ml/min Est GFR ( Amer) 53.5 ml/min Est GFR (Non-Af Amer) 46.2 ml/min BUN/Creatinine Ratio 13.0 (10-20) Glucose 165 H (70-99(Fasting)) mg/dl Lactate (0.4-2.0) mmol/L Calcium 8.8 (8.5-10.1) mg/dl Magnesium 1.6 L (1.7-2.4) mg/dl Total Bilirubin 0.9 (0.2-1.0) mg/dl AST 136 H (13-39) U/L ALT 72 H (7-52) U/L Alkaline Phosphatase 112 H (34-104) U/L Troponin I High Sens 33.9 H D (0-14) pg/ml Total Protein 7.2 (6.0-8.3) gm/dl Albumin 3.8 (3.4-5.0) gm/dl Globulin 3.4 (2.5-4.0) gm/dl Albumin/Globulin Ratio 1.1 (0.9-2) Urine Color Yellow Urine Appearance Turbid A (Clear) Urine pH 7.0 (4.5-7.5) Ur Specific [place] 1.016 (1.000-1.030) Urine Protein 2+ H (Negative) Urine Glucose (UA) Negative (Negative) Urine Ketones Negative (Negative) Urine Blood 2+ H (Negative) Urine Nitrite Negative (Negative) Urine Bilirubin Negative (Negative) Urine Urobilinogen Negative (Negative) Ur Leukocyte Esterase 3+ H (Negative) Urine WBC (Auto) >30 H (0-5) /hpf Urine RBC (Auto) 5-10 H (0-4) /hpf U Hyaline Cast (Auto) 1-5 (0-5) /lpf U Epithel Cells (Auto) 10-20 H (0-5) /lpf Urine Bacteria (Auto) 1+ H (Negative) Urine Yeast Not Reportable 03/15/22 03/15/22 Range/Units 00:58 00:59 WBC (4.8-10.8) K/ul RBC (3.93-5.22) M/uL Hgb (12.0-16.0) g/dl Hct (34.1-44.9) % MCV (80.0-100.0) fL MCH (25.0-34.0) pg MCHC (32.0-36.0) g/dL RDW Std Deviation (36.4-46.3) fL RDW Coeff of Maurice (11.5-14.5) % Plt Count (130-400) K/uL MPV (9.4-12.3) fL Immature Gran % (Auto) % Neut % (Auto) % Lymph % (Auto) % [place] % (Auto) % Eos % (Auto) % Baso % (Auto) % Neut # (Auto) (1.4-6.5) K/uL Lymph # (Auto) (1.2-3.4) K/uL [place] # (Auto) (0.24-0.82) K/uL Eos # (Auto) (0-0.50) K/uL Baso # (Auto) (0-0.2) K/uL Immature Gran # (Auto) (0.00-0.02) K/uL PT 11.4 (9.0-12.0) Seconds INR 1.1 (0.9-1.1) APTT 30.6 (21.0-31.0) Seconds PTT Ratio 1.1 Sodium (136-145) mmol/L Potassium (3.5-5.1) mmol/L Chloride (98-107) mmol/L Carbon Dioxide (21-32) mmol/L Anion Gap (3-11) BUN (6-23) mg/dl Creatinine (0.6-1.2) mg/dl Est Cr Clr Drug Dosing ml/min Est GFR ( Amer) ml/min Est GFR (Non-Af Amer) ml/min BUN/Creatinine Ratio (10-20) Glucose (70-99(Fasting)) mg/dl Lactate 1.6 (0.4-2.0) mmol/L Calcium (8.5-10.1) mg/dl Magnesium (1.7-2.4) mg/dl Total Bilirubin (0.2-1.0) mg/dl AST (13-39) U/L ALT (7-52) U/L Alkaline Phosphatase (34-104) U/L Troponin I High Sens (0-14) pg/ml Total Protein (6.0-8.3) gm/dl Albumin (3.4-5.0) gm/dl Globulin (2.5-4.0) gm/dl Albumin/Globulin Ratio (0.9-2) Urine Color Urine Appearance (Clear) Urine pH (4.5-7.5) Ur Specific [place] (1.000-1.030) Urine Protein (Negative) Urine Glucose (UA) (Negative) Urine Ketones (Negative) Urine Blood (Negative) Urine Nitrite (Negative) Urine Bilirubin (Negative) Urine Urobilinogen (Negative) Ur Leukocyte Esterase (Negative) Urine WBC (Auto) (0-5) /hpf Urine RBC (Auto) (0-4) /hpf U Hyaline Cast (Auto) (0-5) /lpf U Epithel Cells (Auto) (0-5) /lpf Urine Bacteria (Auto) (Negative) Urine Yeast Administered Medications Amlodipine Besylate (Amlodipine Besylate 5 Mg Tab) 2.5 mg PO QAM [facility] Stop: 04/14/22 08:59 Last Admin: 03/15/22 09:11 Dose: 2.5 mg Documented By: STACIA Aspirin (Aspirin 81 Mg Ectab) 81 mg PO DAILY [facility] Stop: 04/14/22 08:59 Last Admin: 03/15/22 09:11 Dose: 81 mg Documented By: KDSaúl Docusate Sodium (Docusate Sodium 100 Mg Cap) 100 mg PO AMHS [facility] Stop: 04/14/22 08:59 Last Admin: 03/15/22 09:12 Dose: 100 mg Documented By: STACIA Enoxaparin Sodium (Enoxaparin Inj 40 Mg/0.4 Ml Syr) 40 mg SQ Q24H [facility] Stop: 04/14/22 07:29 Last Admin: 03/15/22 08:03 Dose: 40 mg Documented By: STACIA Folic Acid (Folic Acid 1 Mg Tab) 1 mg PO QAM [facility] Stop: 04/14/22 08:59 Last Admin: 03/15/22 09:19 Dose: 1 mg Documented By: STACIA Sodium Chloride (Nss 1000ml) 1,000 mls @ 100 mls/hr IV .Q10H [facility] Stop: 03/16/22 02:59 Last Admin: 03/15/22 17:41 Dose: 100 mls/hr Documented By: KDSaúl Infusion: 03/15/22 17:41 Dose: 100 mls/hr Documented By: Admin: 03/15/22 07:42 Dose: 100 mls/hr Documented By: KDSaúl Piperacillin Sod/Tazobactam (Sod 3.375 gm/ Dextrose) 115 mls @ 28.75 mls/hr IV Q8H [facility]; Protocol Stop: 03/25/22 07:14 Last Admin: 03/15/22 15:11 Dose: 28.8 mls/hr Documented By: Infusion: 03/15/22 11:22 Dose: 0 mls/hr Documented By: Admin: 03/15/22 07:43 Dose: 28.8 mls/hr Documented By: STACIA Insulin Aspart (Insulin Aspart Per Unit) 0 units SC ACHS [facility] Stop: 04/14/22 07:29 Last Admin: 03/15/22 17:28 Dose: Not Given Documented By: Admin: 03/15/22 13:17 Dose: 2 units Documented By: STACIA Co-signed By: ISSAC Admin: 03/15/22 09:08 Dose: Not Given Documented By: STACIA Levothyroxine Sodium (Levothyroxine Sodium 75 Mcg Tablet) 75 mcg PO DAILYBB [facility] Stop: 04/14/22 06:59 Last Admin: 03/15/22 08:03 Dose: 75 mcg Documented By: STACIA Losartan Potassium (Losartan Potassium 25 Mg Tab) 25 mg PO DAILY [facility] Stop: 04/14/22 08:59 Last Admin: 03/15/22 09:19 Dose: 25 mg Documented By: STACIA Memantine (Memantine Hcl 10 Mg Tab) 10 mg PO AMHS [facility] Stop: 04/14/22 08:59 Last Admin: 03/15/22 09:19 Dose: 10 mg Documented By: STACIA Pantoprazole Sodium (Pantoprazole 40 Mg Tab) 40 mg PO DAILYBB [facility] Stop: 04/14/22 06:59 Last Admin: 03/15/22 09:11 Dose: 40 mg Documented By: STACIA Phenytoin Sodium (Phenytoin Sodium Er 100 Mg Cap) [facility]: 04/14/22 08:59 Last Admin: 03/15/22 09:12 Dose: 200 mg Documented By: STACIA Vitamin D (Cholecalciferol 1,000 Units 25 Mcg Tab) 2,000 units PO QAM [facility] Stop: 04/14/22 08:59 Last Admin: 03/15/22 09:11 Dose: 2,000 units Documented By: STACIA Discontinued Medications Acetaminophen (Acetaminophen 500 Mg Tab) 1,000 mg PO NOW STA Stop: 03/15/22 01:41 Last Admin: 03/15/22 01:59 Dose: 1,000 mg Documented By: LUCIA Sodium Chloride (Nss 1000ml) 1,000 mls @ 999 mls/hr IV .Q1H1M ONE Stop: 03/15/22 02:40 Last Infusion: 03/15/22 03:00 Dose: 0 mls/hr Documented By: Admin: 03/15/22 01:49 Dose: 999 mls/hr Documented By: LUCIA Piperacillin Sod/Tazobactam Sod (Zosyn) 4.5 gm in 120 mls @ 240 mls/hr IV NOW ONE Stop: 03/15/22 02:18 Last Infusion: 03/15/22 02:35 Dose: 0 mls/hr Documented By: Admin: 03/15/22 01:58 Dose: 240 mls/hr Documented By: LUCIA Magnesium Sulfate/Dextrose (Magnesium Sulfate / D5w) 1 gm in 100 mls @ 50 mls/hr IV Q2H [facility] Stop: 03/15/22 10:59 Last Infusion: 03/15/22 11:22 Dose: 0 mls/hr Documented By: Admin: 03/15/22 09:20 Dose: 50 mls/hr Documented By: Infusion: 03/15/22 09:20 Dose: 50 mls/hr Documented By: Admin: 03/15/22 07:43 Dose: 50 mls/hr Documented By: STACIA Discharge Plan Visit Data Chief Complaint: Urinary Symptoms Stated Complaint: UTI ED Provider: Mena Calixto Discharge Problem: Acute UTI, Elevated troponin Patient Disposition: Admitted As Inpatient Discharge Instructions Interventions: ED Discharge Assessment Last Done: 03/15/22 06:07
[2022-03-15 02:53] LABS: Troponin I High Sensitivity 33.9 pg/ml (0-14)
[2022-03-15] MEDS ORDERED: ACETAMINOPHEN 325 MG TAB PO PRN (07:00)
[2022-03-15] MEDS ORDERED: ONDANSETRON INJ 2 MG/ML 2 ML VIAL IV PRN (07:00)
[2022-03-15] MEDS: SODIUM CHLORIDE 0.9% 1000ML 1,000 ML IV SCH ×2 (07:42→17:41)
[2022-03-15] MEDS: PIPERACILLIN/TAZOBACTAM 3.375 GM in DEXTROSE 5% 100 ML IV SCH ×3 (07:43→23:30)
[2022-03-15] MEDS: MAGNESIUM SULFATE / D5W 1 GM/100 ML BAG IV SCH ×2 (07:43→09:20)
--- NOTE | 2022-03-15 08:02 | History and Physical Report ---
DATE OF ADMISSION: 03/15/2022. CHIEF COMPLAINT: UTI. HISTORY OF PRESENT ILLNESS: This is a 77-year-old female with past medical history significant for hypertension, history of CVA, history of peripheral vascular disease, diabetes, hypothyroidism, chronic anemia, baseline hemoglobin around 11, dementia, seizure disorder. The patient has history of recurrent UTIs, presents with abdominal discomfort, burning micturition and nausea and vomited a couple of times and found to have UTI, currently somewhat sleepy, but answers appropriately, somewhat difficult to understand her. No dentures present. She states she is bedbound for the last 3 years because she is not able to ambulate.Eating okay. She can eat regular food. Says she has some fever today. Denies any headache. No blurred visions, no runny nose, no sore throat. Occasional cough. No difficulty swallowing. Denies any chest pain, no shortness of breath. Normal bowel movements. ALLERGIES: LABETALOL, LISINOPRIL. PAST MEDICAL HISTORY: As mentioned above. PAST SURGICAL HISTORY: Repair of recurrent hernia, ligation of oviducts, cholecystectomy and appendectomy. MEDICATIONS: The patient is on amlodipine 2.5 mg p.o. daily, aspirin 81 mg p.o. daily, vitamin D 50 mcg p.o. a.m., Colace 100 mg p.o. b.i.d., folic acid 1 mg p.o. a.m., levothyroxine 75 mcg p.o. daily, loratadine 10 mg p.o. at bedtime, losartan 25 mg p.o. daily, memantine 10 mg p.o. b.i.d., metformin 1000 mg p.o. a.m., Protonix 40 mg p.o. daily, phenytoin sodium extended 200 mg a.m. and 300 mg p.o. at bedtime, lovastatin 40 mg p.o. at bedtime. FAMILY HISTORY: Significant for daughter has diabetes; father has heart disorder, daughter has COPD, mother has heart disorder, father has kidney cancer, brother has hypertension; Mother has stroke and goiter. SOCIAL HISTORY: . No smoking, no alcohol, no drug use. REVIEW OF SYSTEMS: As per HPI. Rest of the review of systems is negative. PHYSICAL EXAMINATION: GENERAL: The patient is of moderate build, not in acute distress. VITAL SIGNS: Temperature 38.9, pulse 104, respiratory rate 25, blood pressure 115/56, oxygen 97% on room air. HEENT: Pupils equal, round and reactive to light. Oral mucosa moist. NECK: No JVD, no neck masses. CARDIOVASCULAR: S1 and S2 heard. Regular rate and rhythm. No murmur, no gallop. RESPIRATORY SYSTEM: Normal AP diameter. No accessory muscle use. No wheezing, no crackles. ABDOMEN: Soft, bowel sounds present, nontender, no distention. CENTRAL NERVOUS SYSTEM: Alert and awake. No facial droop. Obeys simple commands. Insight okay. Moves extremities. EXTREMITIES: No edema, no erythema. LABORATORY DATA: WBC 6.4, hemoglobin 11.4, hematocrit 36.2, platelets 218. PT 11.4, INR 1.1, APTT 13.6. Sodium 132, potassium 3.9, chloride 98, bicarbonate 25, BUN 15, creatinine 1.1, serum glucose 165. Lactate 1.6, calcium 8.8, magnesium 1.6, total bilirubin 0.9, AST 136, ALT 72, alkaline phosphatase 112. Troponin I high sensitivity 33.9. Urinalysis, +3 leukocyte esterase, +1 bacteria. EKG: Sinus tachycardia with PACs at a rate of 108, nonspecific T-waves in inferior leads. ASSESSMENT AND PLAN: This is a 77-year-old female presents to the Emergency Room with urinary symptoms and found to have a urinary tract infection. 1. Urinary symptoms of dysuria, nausea, vomiting, abdominal discomfort, urine grossly positive, history of urinary tract infection with Pseudomonas in the past. ER started Zosyn, which will be continued. Follow the cultures. Gentle fluids. Monitor in the medical floor . 2. Mild elevation of troponin: Most likely demand ischemia. We will follow the repeat troponins. If any concern, we will call cardiac consult. 3. Hypomagnesemia: Will replace. 4. History of hypothyroidism: Synthroid. 5. History of seizure disorder: Continue phenytoin. Follow the phenytoin levels. 6. History of diabetes: Hold metformin. Place insulin sliding scale, diabetic diet. Follow the blood sugar. Currently, the patient with nausea, placed on clear liquid diet. 7. Hypertension: Continue losartan, amlodipine. We will monitor the blood pressure. 8. History of hyperlipidemia: Continue statin. 9. History of dementia: On memantine. 10. History of gastroesophageal reflux disease: On Protonix. 11. History of peripheral vascular disease: On aspirin and statin. 12. Mild Transaminitis. Follw repeat labs. 13. Deep venous thrombosis prophylaxis: Placed on Lovenox. DISPOSITION: Closely monitor in the medical floor. Social service to help with discharge planning. Level 1 full code. Job ID: [id number] MTDD
[2022-03-15] MEDS: LEVOTHYROXINE SODIUM 75 MCG TABLET PO SCH (08:03)
[2022-03-15] MEDS: ENOXAPARIN INJ 40 MG/0.4 ML SYR SQ SCH (08:03)
[2022-03-15 08:06] LABS: Basophils # (auto) 0.01 K/uL (0-0.2); Basophils % (auto) 0.3 %; Eosinophils # (auto) 0.01 K/uL (0-0.50); Eosinophils % (auto) 0.3 %; Hematocrit (blood only) 34.4 % (34.1-44.9); Hemoglobin 10.8 g/dl (12.0-16.0); Immature Granulocytes # (auto) 0.01 K/uL (0.00-0.02); Immature Granulocytes % (auto) 0.3 %; Lymphocytes % (auto) 10.6 %; Mean Corpuscular Hemoglobin 25.5 pg (25.0-34.0); Mean Corpuscular Hgb Conc 31.4 g/dL (32.0-36.0); Mean Corpuscular Volume 81.1 fL (80.0-100.0); Mean Platelet Volume 9.8 fL (9.4-12.3); Monocytes # (auto) 0.22 K/uL (0.24-0.82); Monocytes % (auto) 5.9 %; Neutrophils # (auto) 3.11 K/uL (1.4-6.5); Neutrophils % (auto) 82.6 %; Platelet Count 157 K/uL (130-400); RDW Standard Deviation 47.3 fL (36.4-46.3); Red Blood Count 4.24 M/uL (3.93-5.22); White Blood Count 3.76 K/ul (4.8-10.8)
[2022-03-15 08:37] LABS: BUN Creatinine Ratio 15.2 (10-20); Calcium 8.3 mg/dl (8.5-10.1); Creatinine Clr Calc Pharmacy 41.4 ml/min; Est GFR (African American) 59.7 ml/min; Est GFR (Non-African American) 51.5 ml/min; Magnesium 1.6 mg/dl (1.7-2.4); Potassium 3.6 mmol/L (3.5-5.1)
[2022-03-15 08:56] LABS: Estimated Average Glucose 128 mg/dl; Hemoglobin A1C 6.1 % (4.5-5.6)
[2022-03-15] MEDS: INSULIN ASPART PER UNIT SC SCH ×4 (09:08→22:03)
[2022-03-15] MEDS: PANTOprazole 40 MG TAB PO SCH (09:11)
[2022-03-15] MEDS: ASPIRIN 81 MG ECTAB PO SCH (09:11)
[2022-03-15] MEDS: amLODIPine BESYLATE 5 MG TAB PO SCH (09:11)
[2022-03-15] MEDS: CHOLECALCIFEROL 1,000 UNITS 25 MCG TAB PO SCH (09:11)
[2022-03-15] MEDS: DOCUSATE SODIUM 100 MG CAP PO SCH ×2 (09:12→20:17)
[2022-03-15] MEDS: PHENYTOIN SODIUM ER 100 MG CAP PO SCH ×2 (09:12→20:17)
[2022-03-15] MEDS: MEMANTINE HCL 10 MG TAB PO SCH ×2 (09:19→20:17)
[2022-03-15] MEDS: FOLIC ACID 1 MG TAB PO SCH (09:19)
[2022-03-15] MEDS: LOSARTAN POTASSIUM 25 MG TAB PO SCH (09:19)
--- NOTE | 2022-03-15 14:49 | Electrocardiogram Report ---
Test Reason : Blood Pressure : / mmHG Vent. Rate : 108 BPM Atrial Rate : 108 BPM P-R Int : 164 ms QRS Dur : 086 ms QT Int : 356 ms P-R-T Axes : 073 040 074 degrees QTc Int : 477 ms Poor data quality, interpretation may be adversely affected Sinus tachycardia with Premature atrial complexes Diffuse Nonspecific ST and T wave abnormality Abnormal ECG When compared with ECG of 21-AUG-2021 15:57, Premature atrial complexes are now Present Confirmed by Donny Mendez ([id number]) on 03/15/2022 2:48:30 PM Referred By: REFERRED SELF Confirmed By:Donny Mendez
--- NOTE | 2022-03-15 17:17 | Hospitalist Progress Note ---
Date of Service March 15, 2022 Assessment & Plan (1) Acute UTI: Plan: Presented with dysuria, nausea and vomiting and the urine was suggestive of UTI Has been started with intravenous Rocephin Urine culture is growing 3 different organisms Blood cultures have been negative Clinically much better and will continue current treatment (2) Diabetes mellitus, type II: Plan: Hemoglobin A1c 6.1 as of 03/15/2022 Blood sugar remains stable Continue with SSI (3) HTN (hypertension): Plan: Continue current medications for high blood pressure Remains stable (4) Seizure disorder: Plan: No seizure episode (5) Transaminitis: Plan: Minimally elevated LFTs Only AST is minimally high at 57 Likely secondary to fatty liver (6) Hypothyroid: Plan: Continue replacement Plan DVT prophylaxis Subcu Lovenox CODE STATUS Full Admission and Anticipated Discharge Date Admission Date: March 15, 2022 Subjective 03/15/2022 The patient was seen and examined in medical floor She has been stable and does not have any significant symptoms No fever no chills and denies any urinary symptoms 03/16/2022 The patient was seen and examined in medical floor She has been complaining of some epigastric discomfort without nausea no vomiting No fever and no chills Denies any other symptoms Review of Systems Review of Systems: All systems reviewed and are unremarkable except as noted below Physical Exam Physical Exam: Lying in bed comfortably Constitutional: well developed, well nourished, + ill appearing and + obese Eyes: PERRL, conjunctivae normal, anicteric sclerae ENMT: external ear and nose normal, oropharynx normal Neck: trachea midline, no thyromegaly Respiratory: no respiratory distress Auscultation: lungs clear to auscultation bilaterally Cardiovascular: Rate/Rhythm: regular rate and regular rhythm; not tachycardic Heart Sounds: normal S1 and normal S2; no murmur Extremities: + edema (Trace edema bilaterally) Gastrointestinal (Abdomen): Inspection/Auscultation: normal bowel sounds; abdomen not distended Percussion/Palpation: + abdomen tender (Mildly tender in the epigastrium) and abdomen soft Musculoskeletal: No acute arthritis in any joint Results & Data Results & Data ([facility]) Vital Signs (Past 12 Hours) Vital Signs Temp Pulse Pulse Resp BP BP BP 03/15/22 11:16 37.5 C 111 H 145/75 H 03/15/22 07:58 36.7 C 103 H 16 170/87 H 03/15/22 06:40 36.6 C 91 H 16 147/80 H 03/15/22 05:30 87 22 121/80 03/15/22 05:01 93 H 22 157/83 H 03/15/22 04:30 93 H 22 122/56 L 03/15/22 04:00 96 H 20 129/66 03/15/22 03:30 100 H 22 151/118 H 03/15/22 03:01 105 H 21 136/56 L 03/15/22 03:18 36.9 C 03/15/22 02:30 104 H 25 H 159/56 H 03/15/22 02:00 110 H 25 H 157/82 H 03/15/22 01:30 112 H 25 H 148/120 H Pulse Ox O2 Del Method 03/15/22 11:16 03/15/22 07:58 98 Room Air 03/15/22 06:40 98 Room Air 03/15/22 05:30 95 03/15/22 05:01 98 03/15/22 04:30 98 03/15/22 04:00 98 03/15/22 03:30 98 03/15/22 03:01 97 03/15/22 03:18 03/15/22 02:30 97 03/15/22 02:00 97 03/15/22 01:30 97 Laboratory Results Short CBC 03/16/22 Range/Units 05:16 WBC 2.69 L (4.8-10.8) K/ul Hgb 9.6 L (12.0-16.0) g/dl Hct 30.9 L (34.1-44.9) % Plt Count 145 (130-400) K/uL BMP 03/16/22 05:16 Sodium 135 L Potassium 3.2 L Chloride 107 Carbon Dioxide 20 L BUN 11 Creatinine 0.92 Glucose 101 H Calcium 7.8 L Liver Function 03/16/22 Range/Units 05:16 Total Bilirubin 0.7 (0.2-1.0) mg/dl Direct Bilirubin 0.3 H (0-0.2) mg/dl AST 57 H (13-39) U/L ALT 45 (7-52) U/L Alkaline Phosphatase 83 (34-104) U/L Albumin 3.1 L (3.4-5.0) gm/dl Medications Administered Current Inpatient Medications Acetaminophen (Acetaminophen 325 Mg Tab) 650 mg PO Q4H PRN PRN Reason: pain/fever Stop: 04/14/22 06:59 Amlodipine Besylate (Amlodipine Besylate 5 Mg Tab) 2.5 mg PO QAM [facility] Stop: 04/14/22 08:59 Last Admin: 03/16/22 08:18 Dose: 2.5 mg Aspirin (Aspirin 81 Mg Ectab) 81 mg PO DAILY [facility] Stop: 04/14/22 08:59 Last Admin: 03/16/22 08:19 Dose: 81 mg Docusate Sodium (Docusate Sodium 100 Mg Cap) 100 mg PO [facility] Stop: 04/14/22 08:59 Last Admin: 03/16/22 08:18 Dose: 100 mg Enoxaparin Sodium (Enoxaparin Inj 40 Mg/0.4 Ml Syr) 40 mg SQ Q24H [facility] Stop: 04/14/22 07:29 Last Admin: 03/16/22 08:19 Dose: 40 mg Folic Acid (Folic Acid 1 Mg Tab) 1 mg PO QA [facility] Stop: 04/14/22 08:59 Last Admin: 03/16/22 08:18 Dose: 1 mg Piperacillin Sod/Tazobactam (Sod 3.375 gm/ Dextrose) 115 mls @ 28.75 mls/hr IV Q8H [facility]; Protocol Stop: 03/25/22 07:14 Last Infusion: 03/16/22 10:32 Dose: Infused Insulin Aspart (Insulin Aspart Per Unit) 0 units SC [facility] Stop: 04/14/22 07:29 Last Admin: 03/16/22 12:54 Dose: 1 units Levothyroxine Sodium (Levothyroxine Sodium 75 Mcg Tablet) 75 mcg PO DAILYBB [facility] Stop: 04/14/22 06:59 Last Admin: 03/16/22 05:50 Dose: 75 mcg Loratadine (Loratadine 10 Mg Tab) 10 mg PO HS [facility] Stop: 04/14/22 20:59 Last Admin: 03/15/22 20:17 Dose: 10 mg Losartan Potassium (Losartan Potassium 25 Mg Tab) 25 mg PO DAILY [facility] Stop: 04/14/22 08:59 Last Admin: 03/16/22 08:19 Dose: 25 mg Memantine (Memantine Hcl 10 Mg Tab) 10 mg PO [facility] Stop: 04/14/22 08:59 Last Admin: 03/16/22 08:18 Dose: 10 mg Ondansetron HCl (Ondansetron Inj 2 Mg/Ml 2 Ml Vial) 4 mg IV Q6H PRN PRN Reason: Nausea Stop: 04/14/22 06:59 Pantoprazole Sodium (Pantoprazole 40 Mg Tab) 40 mg PO DAILYBB [facility] Stop: 04/14/22 06:59 Last Admin: 03/16/22 05:50 Dose: 40 mg Phenytoin Sodium (Phenytoin Sodium Er 100 Mg Cap) [facility] Stop: 04/14/22 08:59 Last Admin: 03/16/22 08:18 Dose: 200 mg Phenytoin Sodium (Phenytoin Sodium Er 100 Mg Cap) 300 mg PO [facility] Stop: 04/14/22 20:59 Last Admin: 03/15/22 20:17 Dose: 300 mg Rosuvastatin Calcium (Rosuvastatin Calcium 20 Mg Tab) 40 mg PO [facility] Stop: 04/14/22 20:59 Last Admin: 03/15/22 20:17 Dose: 40 mg Vitamin D (Cholecalciferol 1,000 Units 25 Mcg Tab) 2,000 units PO QA [facility] Stop: 04/14/22 08:59 Last Admin: 03/16/22 08:18 Dose: 2,000 units
[2022-03-15] MEDS: ROSUVASTATIN CALCIUM 20 MG TAB PO SCH (20:17)
[2022-03-15] MEDS: LORATADINE 10 MG TAB PO SCH (20:17)
[2022-03-16 05:32] LABS: Hematocrit (blood only) 30.9 % (34.1-44.9); Hemoglobin 9.6 g/dl (12.0-16.0); Mean Corpuscular Hemoglobin 24.9 pg (25.0-34.0); Mean Corpuscular Hgb Conc 31.1 g/dL (32.0-36.0); Mean Corpuscular Volume 80.3 fL (80.0-100.0); Mean Platelet Volume 9.8 fL (9.4-12.3); Platelet Count 145 K/uL (130-400); RDW Coefficient of Variation 16.1 % (11.5-14.5); RDW Standard Deviation 46.8 fL (36.4-46.3); Red Blood Count 3.85 M/uL (3.93-5.22); White Blood Count 2.69 K/ul (4.8-10.8)
[2022-03-16] MEDS: LEVOTHYROXINE SODIUM 75 MCG TABLET PO SCH (05:50)
[2022-03-16] MEDS: PANTOprazole 40 MG TAB PO SCH (05:50)
[2022-03-16 05:56] LABS: Albumin Level 3.1 gm/dl (3.4-5.0); Bilirubin Direct 0.3 mg/dl (0-0.2); Bilirubin,Total 0.7 mg/dl (0.2-1.0); Calcium 7.8 mg/dl (8.5-10.1); Creatinine Clr Calc Pharmacy 47.3 ml/min; Est GFR (African American) 70.1 ml/min; Est GFR (Non-African American) 60.5 ml/min; Potassium 3.2 mmol/L (3.5-5.1); Total Protein 5.9 gm/dl (6.0-8.3)
[2022-03-16 06:08] LABS: Basophils # (auto) 0.02 K/uL (0-0.2); Basophils % (auto) 0.7 %; Eosinophils # (auto) 0.01 K/uL (0-0.50); Eosinophils % (auto) 0.4 %; Immature Granulocytes # (auto) 0.01 K/uL (0.00-0.02); Immature Granulocytes % (auto) 0.4 %; Lymphocytes # (auto) 0.79 K/uL (1.2-3.4); Lymphocytes % (auto) 29.4 %; Monocytes # (auto) 0.32 K/uL (0.24-0.82); Monocytes % (auto) 11.9 %; Neutrophils # (auto) 1.54 K/uL (1.4-6.5); Neutrophils % (auto) 57.2 %
[2022-03-16] MEDS: PIPERACILLIN/TAZOBACTAM 3.375 GM in DEXTROSE 5% 100 ML IV SCH ×3 (06:29→23:40)
[2022-03-16] MEDS ORDERED: POTASSIUM CHLORIDE CRTAB 20 MEQ TABCR PO STA (08:08)
[2022-03-16] MEDS: FOLIC ACID 1 MG TAB PO SCH (08:18)
[2022-03-16] MEDS: amLODIPine BESYLATE 5 MG TAB PO SCH (08:18)
[2022-03-16] MEDS: CHOLECALCIFEROL 1,000 UNITS 25 MCG TAB PO SCH (08:18)
[2022-03-16] MEDS: MEMANTINE HCL 10 MG TAB PO SCH ×2 (08:18→20:08)
[2022-03-16] MEDS: DOCUSATE SODIUM 100 MG CAP PO SCH ×2 (08:18→20:04)
[2022-03-16] MEDS: PHENYTOIN SODIUM ER 100 MG CAP PO SCH ×2 (08:18→20:07)
[2022-03-16] MEDS: LOSARTAN POTASSIUM 25 MG TAB PO SCH (08:19)
[2022-03-16] MEDS: ASPIRIN 81 MG ECTAB PO SCH (08:19)
[2022-03-16] MEDS: ENOXAPARIN INJ 40 MG/0.4 ML SYR SQ SCH (08:19)
[2022-03-16] MEDS: INSULIN ASPART PER UNIT SC SCH ×4 (09:07→21:04)
[2022-03-16] MEDS ORDERED: LOPERAMIDE HCL 2 MG CAP PO PRN (15:01)
[2022-03-16] MEDS: CALCIUM CARBONATE 1,250 MG/5 ML UDC PO SCH (18:32)
[2022-03-16] MEDS: LORATADINE 10 MG TAB PO SCH (20:08)
[2022-03-16] MEDS: ROSUVASTATIN CALCIUM 20 MG TAB PO SCH (20:08)
[2022-03-17] MEDS: PIPERACILLIN/TAZOBACTAM 3.375 GM in DEXTROSE 5% 100 ML IV SCH (06:20)
[2022-03-17] MEDS: PANTOprazole 40 MG TAB PO SCH (06:20)
[2022-03-17] MEDS: LEVOTHYROXINE SODIUM 75 MCG TABLET PO SCH (06:20)
[2022-03-17] MEDS: CALCIUM CARBONATE 1,250 MG/5 ML UDC PO SCH ×2 (06:20→18:07)
[2022-03-17 07:35] LABS: Basophils # (auto) 0.02 K/uL (0-0.2); Basophils % (auto) 0.4 %; Eosinophils # (auto) 0.13 K/uL (0-0.50); Eosinophils % (auto) 2.7 %; Hematocrit (blood only) 31.7 % (34.1-44.9); Hemoglobin 9.7 g/dl (12.0-16.0); Immature Granulocytes # (auto) 0.01 K/uL (0.00-0.02); Immature Granulocytes % (auto) 0.2 %; Lymphocytes # (auto) 1.46 K/uL (1.2-3.4); Mean Corpuscular Hemoglobin 24.8 pg (25.0-34.0); Mean Corpuscular Hgb Conc 30.6 g/dL (32.0-36.0); Mean Corpuscular Volume 81.1 fL (80.0-100.0); Monocytes # (auto) 0.36 K/uL (0.24-0.82); Monocytes % (auto) 7.4 %; Neutrophils # (auto) 2.89 K/uL (1.4-6.5); Neutrophils % (auto) 59.3 %; Platelet Count 161 K/uL (130-400); RDW Standard Deviation 47.4 fL (36.4-46.3); Red Blood Count 3.91 M/uL (3.93-5.22); White Blood Count 4.87 K/ul (4.8-10.8)
[2022-03-17 07:55] LABS: Albumin Level 3.1 gm/dl (3.4-5.0); BUN Creatinine Ratio 11.4 (10-20); Bilirubin Direct 0.2 mg/dl (0-0.2); Bilirubin,Total 0.4 mg/dl (0.2-1.0); Calcium 8.2 mg/dl (8.5-10.1); Creatinine Clr Calc Pharmacy 35.3 ml/min; Est GFR (African American) 49.3 ml/min; Est GFR (Non-African American) 42.6 ml/min; Potassium 3.3 mmol/L (3.5-5.1); Total Protein 5.8 gm/dl (6.0-8.3)
[2022-03-17] MEDS ORDERED: POTASSIUM CHLORIDE CRTAB 20 MEQ TABCR PO STA (07:57)
[2022-03-17] MEDS: ASPIRIN 81 MG ECTAB PO SCH (08:48)
[2022-03-17] MEDS: DOCUSATE SODIUM 100 MG CAP PO SCH ×2 (08:48→20:28)
[2022-03-17] MEDS: PHENYTOIN SODIUM ER 100 MG CAP PO SCH ×2 (08:48→20:28)
[2022-03-17] MEDS: amLODIPine BESYLATE 5 MG TAB PO SCH (08:48)
[2022-03-17] MEDS: FOLIC ACID 1 MG TAB PO SCH (08:48)
[2022-03-17] MEDS: LOSARTAN POTASSIUM 25 MG TAB PO SCH (08:48)
[2022-03-17] MEDS: MEMANTINE HCL 10 MG TAB PO SCH ×2 (08:48→20:28)
[2022-03-17] MEDS: CHOLECALCIFEROL 1,000 UNITS 25 MCG TAB PO SCH (08:48)
[2022-03-17] MEDS: ENOXAPARIN INJ 40 MG/0.4 ML SYR SQ SCH (08:49)
[2022-03-17] MEDS: INSULIN ASPART PER UNIT SC SCH ×4 (08:52→21:24)
--- NOTE | 2022-03-17 14:44 | CT Scan Report ---
CT abd pelvis wo con CLINICAL HISTORY: Abdominal pain TECHNIQUE: Helical axial images of the abdomen and pelvis were obtained. Automated dose lowering tech niques and/or adjustment according to patient size were utilized for this exam. This exam was perfor med without intravenous contrast. CT DOSE: 921.10 mGy.cm COMPARISON: Comparison is made to CT abdomen pelvis 12/16/2019 FINDINGS: Lower chest: Bilateral pleural effusions are seen. There is a small pericardial effusion. Liver: Borderline hepatic steatosis. Gallbladder and biliary tree: Patient is status post cholecystectomy. No intra- or extrahepatic bilia ry ductal dilation. Pancreas: Fatty replacement of the pancreas is seen. Spleen: Unremarkable. Adrenals: Unremarkable. Kidneys and ureters: Nonobstructive nephrolithiasis is seen. Bladder: Unremarkable. Reproductive organs: Unremarkable. Bowel: The pelvic contents are seen in the rectum. Patient is status post appendectomy. A hiatal kerry ia is seen. A duodenal diverticulum is seen. Lymph nodes Retroperitoneal: Subcentimeter lymph nodes are noted. Pelvic: Subcentimeter lymph nodes are noted. Mesenteric: Unremarkable. Peritoneum: Fat stranding is seen in the central mesentery. Vessels: Atherosclerotic calcifications are seen. Multiple phleboliths are seen. Abdominal wall: Fat-containing supraumbilical hernia is again seen. There is a left inguinal hernia c ontaining only fat. Bones: Degenerative changes in the visualized spine. Pars defects are seen at L5-S1 and there is grad e 1 anterolisthesis. IMPRESSION: 1. Liquid rectal contents compatible with diarrhea. 2. Central mesenteric stranding, mesenteric panniculitis cannot be excluded. 3. Nonobstructive nephrolithiasis bilaterally. 4. Bilateral small pleural effusions and pericardial effusion. 5. Additional findings as above. ACT 112: Negative or not required by law. Electronically signed by: Otilio Broderick M.D. 03/17/2022 2:42 PM
[2022-03-17] MEDS: AMPICILLIN/SULBACTAM SOD 3,000 MG in 0.9 % SODIUM CHLORIDE 100 ML IV SCH ×2 (16:29→20:38)
--- NOTE | 2022-03-17 17:21 | Hospitalist Progress Note ---
Date of Service March 17, 2022 Assessment & Plan (1) Acute UTI: Plan: Presented with dysuria, nausea and vomiting and the urine was suggestive of UTI Has been started with intravenous Rocephin Urine culture is growing 3 different organisms Blood cultures have been negative Clinically much better and will continue current treatment Urine culture is growing gram-positive cocci preliminary Antibiotic has been changed to Unasyn Abdominal pain Nonspecific with nausea CT scan of the abdomen and pelvis remain unremarkable (2) Diabetes mellitus, type II: Plan: Hemoglobin A1c 6.1 as of 03/15/2022 Blood sugar remains stable Continue with SSI (3) HTN (hypertension): Plan: Continue current medications for high blood pressure Remains stable (4) Seizure disorder: Plan: No seizure episode (5) Transaminitis: Plan: Minimally elevated LFTs Only AST is minimally high at 57 Likely secondary to fatty liver (6) Hypothyroid: Plan: Continue replacement Plan DVT prophylaxis Subcu Lovenox CODE STATUS Full Admission and Anticipated Discharge Date Admission Date: March 15, 2022 Subjective 03/15/2022 The patient was seen and examined in medical floor She has been stable and does not have any significant symptoms No fever no chills and denies any urinary symptoms 03/16/2022 The patient was seen and examined in medical floor She has been complaining of some epigastric discomfort without nausea no vomiting No fever and no chills Denies any other symptoms 03/17/2022 The patient was seen and examined in medical floor She has been complaining of some abdominal pain and diarrhea CT scan of the abdomen remained unremarkable Review of Systems Review of Systems: All systems reviewed and are unremarkable except as noted below Physical Exam Physical Exam: Lying in bed comfortably Constitutional: well developed, well nourished, + ill appearing and + obese Eyes: PERRL, conjunctivae normal, anicteric sclerae ENMT: external ear and nose normal, oropharynx normal Neck: trachea midline, no thyromegaly Respiratory: no respiratory distress Auscultation: lungs clear to auscultation bilaterally Cardiovascular: Rate/Rhythm: regular rate and regular rhythm; not tachycardic Heart Sounds: normal S1 and normal S2; no murmur Extremities: + edema (Trace edema bilaterally) Gastrointestinal (Abdomen): Inspection/Auscultation: normal bowel sounds; abdomen not distended Percussion/Palpation: + abdomen tender (Mildly tender in the epigastrium) and abdomen soft Musculoskeletal: No acute arthritis in any joint. Moving all limbs equally Neurologic: Alert, awake and oriented x3. Generally weak but no focal sensory or no motor deficit appreciated Lymphatic: no cervical or axillary lymphadenopathy Results & Data Results & Data ([facility]) Vital Signs (Past 12 Hours) Vital Signs Temp Pulse Resp BP Pulse Ox O2 Del Method 03/17/22 15:04 36.6 C 75 18 104/71 98 Room Air 03/17/22 07:10 36.7 C 82 16 152/82 H 95 Room Air Laboratory Results Short CBC 03/17/22 Range/Units 07:12 WBC 4.87 (4.8-10.8) K/ul Hgb 9.7 L (12.0-16.0) g/dl Hct 31.7 L (34.1-44.9) % Plt Count 161 (130-400) K/uL BMP 03/17/22 07:12 Sodium 135 L Potassium 3.3 L Chloride 106 Carbon Dioxide 23 BUN 14 Creatinine 1.23 H D Glucose 139 H Calcium 8.2 L Liver Function 03/17/22 Range/Units 07:12 Total Bilirubin 0.4 (0.2-1.0) mg/dl Direct Bilirubin 0.2 (0-0.2) mg/dl AST 29 (13-39) U/L ALT 33 (7-52) U/L Alkaline Phosphatase 86 (34-104) U/L Albumin 3.1 L (3.4-5.0) gm/dl Medications Administered Current Inpatient Medications Acetaminophen (Acetaminophen 325 Mg Tab) 650 mg PO Q4H PRN PRN Reason: pain/fever Stop: 04/14/22 06:59 Amlodipine Besylate (Amlodipine Besylate 5 Mg Tab) 2.5 mg PO QAM [facility] Stop: 04/14/22 08:59 Last Admin: 03/17/22 08:48 Dose: 2.5 mg Aspirin (Aspirin 81 Mg Ectab) 81 mg PO DAILY [facility] Stop: 04/14/22 08:59 Last Admin: 03/17/22 08:48 Dose: 81 mg Calcium Carbonate (Calcium Carbonate 1,250 Mg/5 Ml Udc) 1,250 mg PO BID@0700,1900 [facility] Stop: 04/15/22 18:59 Last Admin: 03/17/22 06:20 Dose: 1,250 mg Docusate Sodium (Docusate Sodium 100 Mg Cap) 100 mg PO [facility] Stop: 04/14/22 08:59 Last Admin: 03/17/22 08:48 Dose: 100 mg Enoxaparin Sodium (Enoxaparin Inj 40 Mg/0.4 Ml Syr) 40 mg SQ Q24H [facility] Stop: 04/14/22 07:29 Last Admin: 03/17/22 08:49 Dose: 40 mg Folic Acid (Folic Acid 1 Mg Tab) 1 mg PO QAM [facility] Stop: 04/14/22 08:59 Last Admin: 03/17/22 08:48 Dose: 1 mg Ampicillin Sodium/Sulbactam Sodium 3,000 mg/ Sodium Chloride 108 mls @ 216 mls/hr IV Q6H [facility]; Protocol Stop: 03/27/22 14:59 Last Infusion: 03/17/22 17:09 Dose: Infused Insulin Aspart (Insulin Aspart Per Unit) 0 units SC [facility] Stop: 04/14/22 07:29 Last Admin: 03/17/22 12:39 Dose: 6 units Levothyroxine Sodium (Levothyroxine Sodium 75 Mcg Tablet) 75 mcg PO DAILYBB [facility] Stop: 04/14/22 06:59 Last Admin: 03/17/22 06:20 Dose: 75 mcg Loperamide HCl (Loperamide Hcl 2 Mg Cap) 2 mg PO Q6H PRN PRN Reason: Diarrhea Stop: 04/15/22 15:00 Last Admin: 03/16/22 15:29 Dose: 2 mg Loratadine (Loratadine 10 Mg Tab) 10 mg PO HS [facility] Stop: 04/14/22 20:59 Last Admin: 03/16/22 20:08 Dose: 10 mg Losartan Potassium (Losartan Potassium 25 Mg Tab) 25 mg PO DAILY [facility] Stop: 04/14/22 08:59 Last Admin: 03/17/22 08:48 Dose: 25 mg Memantine (Memantine Hcl 10 Mg Tab) 10 mg PO [facility] Stop: 04/14/22 08:59 Last Admin: 03/17/22 08:48 Dose: 10 mg Ondansetron HCl (Ondansetron Inj 2 Mg/Ml 2 Ml Vial) 4 mg IV Q6H PRN PRN Reason: Nausea Stop: 04/14/22 06:59 Pantoprazole Sodium (Pantoprazole 40 Mg Tab) 40 mg PO DAILYBB [facility] Stop: 04/14/22 06:59 Last Admin: 03/17/22 06:20 Dose: 40 mg Phenytoin Sodium (Phenytoin Sodium Er 100 Mg Cap) 200 mg PO QAM [facility] Stop: 04/14/22 08:59 Last Admin: 03/17/22 08:48 Dose: 200 mg Phenytoin Sodium (Phenytoin Sodium Er 100 Mg Cap) 300 mg PO HS [facility] Stop: 04/14/22 20:59 Last Admin: 03/16/22 20:07 Dose: 300 mg Rosuvastatin Calcium (Rosuvastatin Calcium 20 Mg Tab) 40 mg PO [facility] Stop: 04/14/22 20:59 Last Admin: 03/16/22 20:08 Dose: 40 mg Vitamin D (Cholecalciferol 1,000 Units 25 Mcg Tab) 2,000 units PO [facility] Stop: 04/14/22 08:59 Last Admin: 03/17/22 08:48 Dose: 2,000 units
[2022-03-17] MEDS: LORATADINE 10 MG TAB PO SCH (20:28)
[2022-03-17] MEDS: ROSUVASTATIN CALCIUM 20 MG TAB PO SCH (20:28)
[2022-03-18] MEDS: AMPICILLIN/SULBACTAM SOD 3,000 MG in 0.9 % SODIUM CHLORIDE 100 ML IV SCH ×3 (02:59→15:01)
[2022-03-18] MEDS: LEVOTHYROXINE SODIUM 75 MCG TABLET PO SCH (06:03)
[2022-03-18] MEDS: CALCIUM CARBONATE 1,250 MG/5 ML UDC PO SCH ×2 (06:03→18:35)
[2022-03-18] MEDS: PANTOprazole 40 MG TAB PO SCH (06:03)
[2022-03-18] MEDS: amLODIPine BESYLATE 5 MG TAB PO SCH (08:53)
[2022-03-18] MEDS: CHOLECALCIFEROL 1,000 UNITS 25 MCG TAB PO SCH (08:53)
[2022-03-18] MEDS: MEMANTINE HCL 10 MG TAB PO SCH ×2 (08:53→20:18)
[2022-03-18] MEDS: ASPIRIN 81 MG ECTAB PO SCH (08:53)
[2022-03-18] MEDS: FOLIC ACID 1 MG TAB PO SCH (08:53)
[2022-03-18] MEDS: ENOXAPARIN INJ 40 MG/0.4 ML SYR SQ SCH (08:53)
[2022-03-18] MEDS: DOCUSATE SODIUM 100 MG CAP PO SCH ×2 (08:54→20:16)
[2022-03-18] MEDS: LOSARTAN POTASSIUM 25 MG TAB PO SCH (08:54)
[2022-03-18] MEDS: PHENYTOIN SODIUM ER 100 MG CAP PO SCH ×2 (08:54→20:17)
[2022-03-18 08:57] LABS: BUN Creatinine Ratio 16.5 (10-20); Calcium 8.4 mg/dl (8.5-10.1); Est GFR (African American) 84.3 ml/min; Est GFR (Non-African American) 72.7 ml/min; Potassium 3.9 mmol/L (3.5-5.1)
[2022-03-18] MEDS: INSULIN ASPART PER UNIT SC SCH ×4 (08:59→20:51)
[2022-03-18] MEDS ORDERED: VANCOMYCIN HCL 1,000 MG in SODIUM CHLORIDE 0.9% 250 ML IV STA (16:37)
[2022-03-18] MEDS ORDERED: VANCOMYCIN CONSULT ACTIVE PRN (16:37)
--- NOTE | 2022-03-18 16:37 | Hospitalist Progress Note ---
Date of Service March 18, 2022 Assessment & Plan (1) Acute UTI: Plan: Presented with dysuria, nausea and vomiting and the urine was suggestive of UTI Has been started with intravenous Rocephin Urine culture is growing 3 different organisms Blood cultures have been negative Clinically much better and will continue current treatment Final urine culture grew Enterococcus faecium and is sensitive to Dapto, gentamicin and vancomycin We will discontinue Unasyn and start daptomycin Abdominal pain Nonspecific with nausea CT scan of the abdomen and pelvis remain unremarkable (2) Diabetes mellitus, type II: Plan: Hemoglobin A1c 6.1 as of 03/15/2022 Blood sugar remains stable Continue with SSI (3) HTN (hypertension): Plan: Continue current medications for high blood pressure Remains stable (4) Seizure disorder: Plan: No seizure episode (5) Transaminitis: Plan: Minimally elevated LFTs Only AST is minimally high at 57 Likely secondary to fatty liver (6) Hypothyroid: Plan: Continue replacement Plan DVT prophylaxis Subcu Lovenox CODE STATUS Full Admission and Anticipated Discharge Date Admission Date: March 15, 2022 Subjective 03/15/2022 The patient was seen and examined in medical floor She has been stable and does not have any significant symptoms No fever no chills and denies any urinary symptoms 03/16/2022 The patient was seen and examined in medical floor She has been complaining of some epigastric discomfort without nausea no vomiting No fever and no chills Denies any other symptoms 03/17/2022 The patient was seen and examined in medical floor She has been complaining of some abdominal pain and diarrhea CT scan of the abdomen remained unremarkable 03/18/2022 The patient was seen and examined in medical floor She has been feeling much better today and denies any abdominal pain and the diarrhea seems to be controlled Heart rate remains elevated at 122 likely secondary to infection Review of Systems Review of Systems: All systems reviewed and are unremarkable except as noted below Physical Exam Physical Exam: Lying in bed comfortably Constitutional: well developed, well nourished, + ill appearing and + obese Eyes: PERRL, conjunctivae normal, anicteric sclerae ENMT: external ear and nose normal, oropharynx normal Neck: trachea midline, no thyromegaly Respiratory: no respiratory distress Auscultation: lungs clear to auscultation bilaterally Cardiovascular: Rate/Rhythm: regular rate and regular rhythm; not tachycardic Heart Sounds: normal S1 and normal S2; no murmur Extremities: + edema (Trace edema bilaterally) Gastrointestinal (Abdomen): Inspection/Auscultation: normal bowel sounds; abdomen not distended Percussion/Palpation: + abdomen tender (Mildly tender in the epigastrium) and abdomen soft Lymphatic: no cervical or axillary lymphadenopathy Results & Data Results & Data ([facility]) Vital Signs (Past 12 Hours) Vital Signs Temp Pulse Resp BP Pulse Ox O2 Del Method 03/18/22 14:54 37.0 C 122 H 16 139/84 98 Room Air 03/18/22 10:04 Room Air 03/18/22 07:44 36.5 C 122 H 18 135/109 H 99 Room Air 03/18/22 06:25 36.5 C 73 16 148/91 H 94 Room Air Laboratory Results [facility] 03/18/22 07:53 Sodium 138 Potassium 3.9 Chloride 108 H Carbon Dioxide 23 BUN 13 Creatinine 0.79 D Glucose 127 H Calcium 8.4 L Medications Administered Current Inpatient Medications Acetaminophen (Acetaminophen 325 Mg Tab) 650 mg PO Q4H PRN PRN Reason: pain/fever Stop: 04/14/22 06:59 Amlodipine Besylate (Amlodipine Besylate 5 Mg Tab) 2.5 mg PO QAM [facility] Stop: 04/14/22 08:59 Last Admin: 03/18/22 08:53 Dose: 2.5 mg Aspirin (Aspirin 81 Mg Ectab) 81 mg PO DAILY [facility] Stop: 04/14/22 08:59 Last Admin: 03/18/22 08:53 Dose: 81 mg Calcium Carbonate (Calcium Carbonate 1,250 Mg/5 Ml Udc) 1,250 mg PO BID@0700,1900 [facility] Stop: 04/15/22 18:59 Last Admin: 03/18/22 06:03 Dose: 1,250 mg Docusate Sodium (Docusate Sodium 100 Mg Cap) 100 mg PO [facility] Stop: 04/14/22 08:59 Last Admin: 03/18/22 08:54 Dose: Not Given Enoxaparin Sodium (Enoxaparin Inj 40 Mg/0.4 Ml Syr) 40 mg SQ Q24H [facility] Stop: 04/14/22 07:29 Last Admin: 03/18/22 08:53 Dose: 40 mg Folic Acid (Folic Acid 1 Mg Tab) 1 mg PO QAM [facility] Stop: 04/14/22 08:59 Last Admin: 03/18/22 08:53 Dose: 1 mg Ampicillin Sodium/Sulbactam Sodium 3,000 mg/ Sodium Chloride 108 mls @ 216 mls/hr IV Q6H [facility]; Protocol Stop: 03/27/22 14:59 Last Infusion: 03/18/22 15:31 Dose: Infused Insulin Aspart (Insulin Aspart Per Unit) 0 units SC [facility] Stop: 04/14/22 07:29 Last Admin: 03/18/22 12:55 Dose: 3 units Levothyroxine Sodium (Levothyroxine Sodium 75 Mcg Tablet) 75 mcg PO DAILYBB [facility] Stop: 04/14/22 06:59 Last Admin: 03/18/22 06:03 Dose: 75 mcg Loperamide HCl (Loperamide Hcl 2 Mg Cap) 2 mg PO Q6H PRN PRN Reason: Diarrhea Stop: 04/15/22 15:00 Last Admin: 03/16/22 15:29 Dose: 2 mg Loratadine (Loratadine 10 Mg Tab) 10 mg PO [facility] Stop: 04/14/22 20:59 Last Admin: 03/17/22 20:28 Dose: 10 mg Losartan Potassium (Losartan Potassium 25 Mg Tab) 25 mg PO DAILY [facility] Stop: 04/14/22 08:59 Last Admin: 03/18/22 08:54 Dose: 25 mg Memantine (Memantine Hcl 10 Mg Tab) 10 mg PO [facility] Stop: 04/14/22 08:59 Last Admin: 03/18/22 08:53 Dose: 10 mg Ondansetron HCl (Ondansetron Inj 2 Mg/Ml 2 Ml Vial) 4 mg IV Q6H PRN PRN Reason: Nausea Stop: 04/14/22 06:59 Pantoprazole Sodium (Pantoprazole 40 Mg Tab) 40 mg PO DAILYBB [facility] Stop: 04/14/22 06:59 Last Admin: 03/18/22 06:03 Dose: 40 mg Phenytoin Sodium (Phenytoin Sodium Er 100 Mg Cap) [facility] Stop: 04/14/22 08:59 Last Admin: 03/18/22 08:54 Dose: 200 mg Phenytoin Sodium (Phenytoin Sodium Er 100 Mg Cap) 300 mg PO HS [facility] Stop: 04/14/22 20:59 Last Admin: 03/17/22 20:28 Dose: 300 mg Rosuvastatin Calcium (Rosuvastatin Calcium 20 Mg Tab) 40 mg PO [facility] Stop: 04/14/22 20:59 Last Admin: 03/17/22 20:28 Dose: 40 mg Vitamin D (Cholecalciferol 1,000 Units 25 Mcg Tab) 2,[address] [facility] Stop: 04/14/22 08:59 Last Admin: 03/18/22 08:53 Dose: 2,000 units
[2022-03-18] MEDS ORDERED: VANCOMYCIN HCL 1,500 MG in SODIUM CHLORIDE 0.9% 500 ML IV ONE (17:00)
[2022-03-18] MEDS: ROSUVASTATIN CALCIUM 20 MG TAB PO SCH (20:18)
[2022-03-18] MEDS: LORATADINE 10 MG TAB PO SCH (20:18)
[2022-03-19] MEDS ORDERED: SODIUM CHLORIDE 0.9% 500 ML IV SCH (04:45)
[2022-03-19] MEDS ORDERED: VANCOMYCIN HCL 750 MG in SODIUM CHLORIDE 0.9% 250 ML IV SCH (05:00)
[2022-03-19] MEDS ORDERED: SODIUM CHLORIDE 0.9% 1000ML 1,000 ML IV SCH (05:45)
[2022-03-19] MEDS: LEVOTHYROXINE SODIUM 75 MCG TABLET PO SCH (05:47)
[2022-03-19] MEDS: PANTOprazole 40 MG TAB PO SCH (05:47)
[2022-03-19] MEDS: CALCIUM CARBONATE 1,250 MG/5 ML UDC PO SCH ×2 (05:48→18:01)
[2022-03-19] MEDS ORDERED: METOPROLOL TARTRATE 25 MG TAB PO STA (06:22)
[2022-03-19 08:18] LABS: Basophils # (auto) 0.02 K/uL (0-0.2); Basophils % (auto) 0.4 %; Eosinophils # (auto) 0.12 K/uL (0-0.50); Eosinophils % (auto) 2.4 %; Immature Granulocytes # (auto) 0.01 K/uL (0.00-0.02); Immature Granulocytes % (auto) 0.2 %; Lymphocytes # (auto) 2.07 K/uL (1.2-3.4); Lymphocytes % (auto) 40.7 %; Mean Corpuscular Hemoglobin 24.8 pg (25.0-34.0); Mean Corpuscular Hgb Conc 30.3 g/dL (32.0-36.0); Mean Corpuscular Volume 81.9 fL (80.0-100.0); Monocytes # (auto) 0.42 K/uL (0.24-0.82); Monocytes % (auto) 8.3 %; Neutrophils # (auto) 2.44 K/uL (1.4-6.5); Platelet Count 156 K/uL (130-400); RDW Coefficient of Variation 16.3 % (11.5-14.5); RDW Standard Deviation 48.3 fL (36.4-46.3); Red Blood Count 4.03 M/uL (3.93-5.22); White Blood Count 5.08 K/ul (4.8-10.8)
[2022-03-19] MEDS: MEMANTINE HCL 10 MG TAB PO SCH ×2 (08:22→20:24)
[2022-03-19] MEDS: ASPIRIN 81 MG ECTAB PO SCH (08:22)
[2022-03-19] MEDS: ENOXAPARIN INJ 40 MG/0.4 ML SYR SQ SCH (08:22)
[2022-03-19] MEDS: LOSARTAN POTASSIUM 25 MG TAB PO SCH (08:22)
[2022-03-19] MEDS: amLODIPine BESYLATE 5 MG TAB PO SCH (08:23)
[2022-03-19] MEDS: DOCUSATE SODIUM 100 MG CAP PO SCH ×2 (08:23→20:24)
[2022-03-19] MEDS: FOLIC ACID 1 MG TAB PO SCH (08:23)
[2022-03-19] MEDS: PHENYTOIN SODIUM ER 100 MG CAP PO SCH ×2 (08:23→20:24)
[2022-03-19] MEDS: CHOLECALCIFEROL 1,000 UNITS 25 MCG TAB PO SCH (08:23)
--- NOTE | 2022-03-19 08:23 | Electrocardiogram Report ---
Test Reason : Blood Pressure : / mmHG Vent. Rate : 117 BPM Atrial Rate : 117 BPM P-R Int : 264 ms QRS Dur : 088 ms QT Int : 348 ms P-R-T Axes : 033 085 209 degrees QTc Int : 485 ms Sinus tachycardia with 1st degree A-V block Diffuse Nonspecific ST and T wave abnormality Abnormal ECG When compared with ECG of 15-MAR-2022 02:09, Premature atrial complexes are no longer Present VT interval has increased Confirmed by Donny Mendez ([id number]) on 03/19/2022 8:22:54 AM Referred By: REFERRED SELF Confirmed By:Donny Mendez
[2022-03-19 08:40] LABS: BUN Creatinine Ratio 16.2 (10-20); Calcium 8.2 mg/dl (8.5-10.1); Creatinine Clr Calc Pharmacy 63.9 ml/min; Est GFR (African American) 98.5 ml/min; Potassium 3.6 mmol/L (3.5-5.1)
[2022-03-19] MEDS: INSULIN ASPART PER UNIT SC SCH ×4 (09:06→20:45)
[2022-03-19] MEDS: DAPTOmycin 300 MG in SYRINGE 0 ML IV SCH (15:43)
--- NOTE | 2022-03-19 15:50 | Hospitalist Progress Note ---
Date of Service March 19, 2022 Assessment & Plan (1) Acute UTI: Plan: Presented with dysuria, nausea and vomiting and the urine was suggestive of UTI Has been started with intravenous Rocephin Urine culture is growing 3 different organisms Blood cultures have been negative Clinically much better and will continue current treatment Final urine culture grew Enterococcus faecium and is sensitive to Dapto, gentamicin and vancomycin We will discontinue Unasyn and start daptomycin 03/19 Daptomycin started today Will need at least 1 week of daptomycin Ultrasound-guided vascular access ordered Continue to monitor Abdominal pain Nonspecific with nausea CT scan of the abdomen and pelvis remain unremarkable 03/19 resolved (2) Diabetes mellitus, type II: Plan: Hemoglobin A1c 6.1 as of 03/15/2022 Blood sugar remains stable Continue with SSI (3) HTN (hypertension): Plan: Continue current medications for high blood pressure Remains stable (4) Seizure disorder: Plan: No seizure episode (5) Transaminitis: Plan: Minimally elevated LFTs Only AST is minimally high at 57 Likely secondary to fatty liver (6) Hypothyroid: Plan: Continue replacement Plan DVT prophylaxis Subcu Lovenox CODE STATUS Full Disposition PT OT recommending discharge to home if family can provide care and assistance for patient Admission and Anticipated Discharge Date Admission Date: March 15, 2022 Subjective Follow-up for Enterococcus faecium UTI, etc. Seen resting in bed, comfortable, not in distress, in good spirits States she feels fine overall Had some lightheadedness earlier today, resolved now Denies urinary symptoms, fevers or chills, nausea or vomiting No other symptom Review of Systems Review of Systems: all noted and negative except for above Physical Exam Physical Exam: General- oriented x 3, not in distress, speaks in sentences with no effort or accessory muscle use Eyes- anicteric Neck- no JVD Lungs- clear breath sounds bilaterally, no rales/wheezes Heart- normal rate, regular rhythm; no murmurs Abdomen- normal bowel sounds, nondistended, soft, nontender No CVA tenderness Extremities- no pretibial edema, no calf tenderness Neuro- alert, oriented x 3; no gross focal neurologic deficits Skin- warm & dry Results & Data Results & Data ([facility]) Vital Signs (Past 12 Hours) Vital Signs Temp Pulse Resp BP BP Pulse Ox O2 Del Method 03/19/22 15:40 36.6 C 78 16 140/84 99 Room Air 03/19/22 13:10 98 03/19/22 09:54 Room Air 03/19/22 07:27 36.8 C 114 H 16 179/82 H 94 Room Air 03/19/22 06:37 116 H 159/90 H 03/19/22 04:00 119 H all noted and reviewed including below
[2022-03-19] MEDS: LORATADINE 10 MG TAB PO SCH (20:24)
[2022-03-20] MEDS: PANTOprazole 40 MG TAB PO SCH (05:34)
[2022-03-20] MEDS: LEVOTHYROXINE SODIUM 75 MCG TABLET PO SCH (05:34)
[2022-03-20] MEDS: CALCIUM CARBONATE 1,250 MG/5 ML UDC PO SCH ×2 (06:38→18:03)
[2022-03-20] MEDS: DOCUSATE SODIUM 100 MG CAP PO SCH ×2 (07:57→20:03)
[2022-03-20] MEDS: ENOXAPARIN INJ 40 MG/0.4 ML SYR SQ SCH (07:57)
[2022-03-20] MEDS: LOSARTAN POTASSIUM 25 MG TAB PO SCH (07:58)
[2022-03-20] MEDS: CHOLECALCIFEROL 1,000 UNITS 25 MCG TAB PO SCH (07:58)
[2022-03-20] MEDS: FOLIC ACID 1 MG TAB PO SCH (07:58)
[2022-03-20] MEDS: ASPIRIN 81 MG ECTAB PO SCH (07:58)
[2022-03-20] MEDS: MEMANTINE HCL 10 MG TAB PO SCH ×2 (07:58→20:04)
[2022-03-20] MEDS: amLODIPine BESYLATE 5 MG TAB PO SCH (07:59)
[2022-03-20] MEDS: PHENYTOIN SODIUM ER 100 MG CAP PO SCH ×2 (07:59→20:03)
[2022-03-20 08:37] LABS: Creatinine Clr Calc Pharmacy 53.7 ml/min; Est GFR (African American) 81.8 ml/min; Est GFR (Non-African American) 70.5 ml/min
[2022-03-20] MEDS: INSULIN ASPART PER UNIT SC SCH ×4 (08:54→20:44)
[2022-03-20] MEDS ORDERED: LOPERAMIDE HCL 2 MG CAP PO PRN (14:27)
[2022-03-20] MEDS ORDERED: LOPERAMIDE HCL 2 MG CAP PO STA (14:33)
[2022-03-20] MEDS: DAPTOmycin 300 MG in SYRINGE 0 ML IV SCH (16:25)
[2022-03-20] MEDS: LORATADINE 10 MG TAB PO SCH (20:04)
[2022-03-21] MEDS: LEVOTHYROXINE SODIUM 75 MCG TABLET PO SCH (06:00)
[2022-03-21] MEDS: PANTOprazole 40 MG TAB PO SCH (06:00)
[2022-03-21] MEDS: CALCIUM CARBONATE 1,250 MG/5 ML UDC PO SCH (06:01)
[2022-03-21] MEDS: ENOXAPARIN INJ 40 MG/0.4 ML SYR SQ SCH (07:58)
[2022-03-21] MEDS: MEMANTINE HCL 10 MG TAB PO SCH ×2 (07:59→20:22)
[2022-03-21] MEDS: amLODIPine BESYLATE 5 MG TAB PO SCH (07:59)
[2022-03-21] MEDS: DOCUSATE SODIUM 100 MG CAP PO SCH (07:59)
[2022-03-21] MEDS: PHENYTOIN SODIUM ER 100 MG CAP PO SCH ×2 (08:00→20:23)
[2022-03-21] MEDS: LOSARTAN POTASSIUM 25 MG TAB PO SCH (08:00)
[2022-03-21] MEDS: FOLIC ACID 1 MG TAB PO SCH (08:00)
[2022-03-21] MEDS: ASPIRIN 81 MG ECTAB PO SCH (08:00)
[2022-03-21] MEDS: CHOLECALCIFEROL 1,000 UNITS 25 MCG TAB PO SCH (08:00)
[2022-03-21 08:26] LABS: Creatinine Clr Calc Pharmacy 50.6 ml/min; Est GFR (African American) 76.1 ml/min; Est GFR (Non-African American) 65.6 ml/min
[2022-03-21] MEDS: INSULIN ASPART PER UNIT SC SCH ×4 (08:53→20:38)
[2022-03-21] MEDS ORDERED: amLODIPine BESYLATE 5 MG TAB PO ONE (09:30)
--- NOTE | 2022-03-21 11:39 | XRay Report ---
XR KUB/Abdomen 1 view CLINICAL HISTORY: abdominal distention, diarrhea TECHNIQUE: 1 view of the abdomen was obtained. Comparison: Comparison is made to abdomen radiographs 12/15/2019 FINDINGS: Exam is limited by patient rotation. Cholecystectomy clips are noted. Degenerative changes are seen i n the visualized skeleton. There is a paucity of small bowel gas, no meme dilation is seen. A small amount of gas in no significant stool burden is seen in the colon. IMPRESSION: Nonobstructive bowel gas pattern. ACT 112: Negative or not required by law. Electronically signed by: Otilio Broderick M.D. 03/21/2022 11:37 AM
[2022-03-21] MEDS ORDERED: LOPERAMIDE HCL 2 MG CAP PO STA (11:43)
[2022-03-21] MEDS ORDERED: SODIUM CHLORIDE 0.9% 1000ML 1,000 ML IV SCH (11:45)
[2022-03-21] MEDS ORDERED: FAMOTIDINE 10 MG TABLET PO ONE (12:00)
[2022-03-21] MEDS: DAPTOmycin 300 MG in SYRINGE 0 ML IV SCH (17:09)
--- NOTE | 2022-03-21 17:27 | Hospitalist Progress Note ---
Date of Service March 21, 2022 Assessment & Plan (1) Acute UTI: Plan: Presented with dysuria, nausea and vomiting and the urine was suggestive of UTI Has been started with intravenous Rocephin Urine culture is growing 3 different organisms Blood cultures have been negative Clinically much better and will continue current treatment Final urine culture grew Enterococcus faecium and is sensitive to Dapto, gentamicin and vancomycin We will discontinue Unasyn and start daptomycin 03/19 Daptomycin started today Will need at least 1 week of daptomycin Ultrasound-guided vascular access ordered Continue to monitor Abdominal pain Nonspecific with nausea CT scan of the abdomen and pelvis remain unremarkable 03/21 Continue IV daptomycin Diarrhea, dyspepsia C. difficile negative From daptomycin? From calcium carbonate? Famotidine ordered, continue pantoprazole Continue Imodium DC calcium carbonate Monitor closely Gentle IV fluids (2) Diabetes mellitus, type II: Plan: Hemoglobin A1c 6.1 as of 03/15/2022 Blood sugar remains stable Continue with SSI (3) HTN (hypertension): Plan: Elevated Amlodipine increased to 5 mg p.o. daily Monitor glucose (4) Seizure disorder: Plan: No seizure episode (5) Transaminitis: Plan: Minimally elevated LFTs Only AST is minimally high at 57 Likely secondary to fatty liver (6) Hypothyroid: Plan: Continue replacement Plan DVT prophylaxis Subcu Lovenox CODE STATUS Full Disposition PT OT recommending discharge to home if family can provide care and assistance for patient Admission and Anticipated Discharge Date Admission Date: March 15, 2022 Subjective Follow-up for UTI, etc. Seen resting in bed, not in distress States she still having diarrhea today, 2 loose bowel movements, having " GI upset" No nausea vomiting, fevers or chills Otherwise no other symptoms Review of Systems Review of Systems: all noted and negative except for above Physical Exam Physical Exam: General- oriented x 3, not in distress, speaks in sentences with no effort or accessory muscle use Eyes- anicteric Neck- no JVD Lungs- clear breath sounds bilaterally, no crackles Heart- normal rate, regular rhythm; no murmurs Abdomen- normal bowel sounds, nondistended, soft, no tenderness Extremities- no pretibial edema, no calf tenderness Neuro- alert, oriented x 3; no gross focal neurologic deficits Skin- warm & dry Results & Data Results & Data ([facility]) Vital Signs (Past 12 Hours) Vital Signs Temp Pulse Resp BP Pulse Ox O2 Del Method 10/21/22 15:37 36.8 C 78 16 154/79 H 98 Room Air 03/21/22 10:52 158/78 H 03/21/22 08:05 36.5 C 84 16 176/103 H 95 Room Air all noted and reviewed including below
[2022-03-21] MEDS: LORATADINE 10 MG TAB PO SCH (20:22)
[2022-03-22] MEDS: ENOXAPARIN INJ 40 MG/0.4 ML SYR SQ SCH (06:31)
[2022-03-22] MEDS: LEVOTHYROXINE SODIUM 75 MCG TABLET PO SCH (06:31)
[2022-03-22] MEDS: PANTOprazole 40 MG TAB PO SCH (06:31)
[2022-03-22] MEDS: PHENYTOIN SODIUM ER 100 MG CAP PO SCH (08:07)
[2022-03-22] MEDS: FOLIC ACID 1 MG TAB PO SCH (08:07)
[2022-03-22] MEDS: MEMANTINE HCL 10 MG TAB PO SCH (08:07)
[2022-03-22] MEDS: LOSARTAN POTASSIUM 25 MG TAB PO SCH (08:07)
[2022-03-22] MEDS: ASPIRIN 81 MG ECTAB PO SCH (08:08)
[2022-03-22] MEDS: CHOLECALCIFEROL 1,000 UNITS 25 MCG TAB PO SCH (08:08)
[2022-03-22 08:25] LABS: Creatinine Clr Calc Pharmacy 55.7 ml/min; Est GFR (African American) 85.6 ml/min; Est GFR (Non-African American) 73.8 ml/min
[2022-03-22] MEDS ORDERED: amLODIPine BESYLATE 5 MG TAB PO SCH (09:00)
[2022-03-22] MEDS: INSULIN ASPART PER UNIT SC SCH ×2 (09:01→12:55)
--- NOTE | 2022-03-22 11:24 | Hospitalist Progress Note ---
Date of Service March 22, 2022 Assessment & Plan (1) Acute UTI: Plan: Presented with dysuria, nausea and vomiting and the urine was suggestive of UTI Has been started with intravenous Rocephin Urine culture is growing 3 different organisms Blood cultures have been negative Clinically much better and will continue current treatment Final urine culture grew Enterococcus faecium and is sensitive to Dapto, gentamicin and vancomycin We will discontinue Unasyn and start daptomycin 03/19 Daptomycin started today Will need at least 1 week of daptomycin Ultrasound-guided vascular access ordered Continue to monitor Abdominal pain Nonspecific with nausea CT scan of the abdomen and pelvis remain unremarkable 03/21 Continue IV daptomycin 03/22 Diarrhea resolved Continue daptomycin for another 2 days to complete 7-day course of IV antibiotics Repeat CBC, basic metabolic profile upon completion 5 antibiotics Diarrhea, dyspepsia C. difficile negative From daptomycin? From calcium carbonate? Famotidine ordered, continue pantoprazole Continue Imodium DC calcium carbonate Resolved (2) Diabetes mellitus, type II: Plan: Hemoglobin A1c 6.1 as of 03/15/2022 Continue usual regimen (3) HTN (hypertension): Plan: Elevated Amlodipine increased to 5 mg p.o. daily Monitor blood pressure daily (4) Seizure disorder: Plan: No seizure episode (5) Transaminitis: Plan: Minimally elevated LFTs Only AST is minimally high at 57 Likely secondary to fatty liver (6) Hypothyroid: Plan: Continue replacement Plan DVT prophylaxis Subcu Lovenox given CODE STATUS Full Disposition [facility] Follow-up with PCP in 1 week Admission and Anticipated Discharge Date Admission Date: March 15, 2022 Subjective ff up for UTI, etc seen resting in bed, comfortable in good spirits diarrhea and GI upset resolved no urinary symptoms, fevers, etc. No other symptoms States she is ready and would like to be discharged today Review of Systems Review of Systems: all noted and negative except for above Physical Exam Physical Exam: General- oriented x 3, not in distress, speaks in sentences with no effort or accessory muscle use Eyes- anicteric Neck- no JVD Lungs- clear breath sounds bilaterally no wheezing, no crackles Heart- normal rate, regular rhythm; no murmurs Abdomen- normal bowel sounds, nondistended, soft, nontender Extremities- no pretibial edema, no calf tenderness Neuro- alert, oriented x 3; no gross focal neurologic deficits Skin- warm & dry Results & Data Results & Data ([facility]) Vital Signs (Past 12 Hours) Vital Signs Temp Pulse Resp BP Pulse Ox O2 Del Method 03/22/22 08:00 Room Air 03/22/22 07:47 36.6 C 76 18 151/73 H 95 Room Air all noted and reviewed including below
--- NOTE | 2022-03-22 11:31 | Discharge Summary ---
Discharge Summary Date of Service March 22, 2022 Notes For Next Care Provider Repeat CBC, BMP upon completion of IV daptomycin Amlodipine increased, monitor blood pressure daily Medication Changes From Visit Daptomycin 300 mg IV daily x 3 days Amlodipine increased to 5 mg p.o. daily Rosuvastatin on hold while on IV daptomycin, resume after daptomycin course has been completed Admission HPI Per Admitting Provider HISTORY OF PRESENT ILLNESS: This is a 77-year-old female with past medical history significant for hypertension, history of CVA, history of peripheral vascular disease, diabetes, hypothyroidism, chronic anemia, baseline hemoglobin around 11, dementia, seizure disorder. The patient has history of recurrent UTIs, presents with abdominal discomfort, burning micturition and nausea and vomited a couple of times and found to have UTI, currently somewhat sleepy, but answers appropriately, somewhat difficult to understand her. No dentures p resent. She states she is bedbound for the last 3 years because she is not able to ambulate.Eating okay. She can eat regular food. Says she has some fever today. Denies any headache. No blurred visions, no runny nose, no sore throat. Occasional cough. No difficulty swallowing. Denies any chest pain, no shortness of breath. Normal bowel movements. Admission Exam Per Admitting Provider GENERAL: The patient is of moderate build, not in acute distress. VITAL SIGNS: Temperature 38.9, pulse 104, respiratory rate 25, blood pressure 115/56, oxygen 97% on room air. HEENT: Pupils equal, round and reactive to light. Oral mucosa moist. NECK: No JVD, no neck masses. CARDIOVASCULAR: S1 and S2 heard. Regular rate and rhythm. No murmur, no gallop. RESPIRATORY SYSTEM: Normal AP diameter. No accessory muscle use. No wheezing, no crackles. ABDOMEN: Soft, bowel sounds present, nontender, no distention. CENTRAL NERVOUS SYSTEM: Alert and awake. No facial droop. Obeys simple commands. Insight okay. Moves extremities. EXTREMITIES: No edema, no erythema. Principal Dx & Hospital Course #1 = Principal Diagnosis (1) Acute UTI: Presented with dysuria, nausea and vomiting and the urine was suggestive of UTI Blood cultures have been negative Final urine culture grew Enterococcus faecium and is sensitive to Dapto, gentamicin and vancomycin Transitioned to IV daptomycin Ultrasound-guided vascular access ordered Developed diarrhea but resolved C. difficile negative Continue daptomycin for another 3 days to complete 7-day course of IV antibiotics Resume rosuvastatin after completion of the daptomycin course Repeat CBC, basic metabolic profile upon completion 5 antibiotics (2) Diabetes mellitus, type II: Hemoglobin A1c 6.1 as of 03/15/2022 Continue usual regimen (3) HTN (hypertension): Elevated Amlodipine increased to 5 mg p.o. daily Monitor blood pressure daily (4) Seizure disorder: No seizure episode (5) Transaminitis: Minimally elevated LFTs Only AST is minimally high at 57 Likely secondary to fatty liver outpatient ff up (6) Hypothyroid: Continue replacement Plan DVT prophylaxis Subcu Lovenox given CODE STATUS Full Disposition [facility] Follow-up with PCP in 1 week Discharge Exam General- oriented x 3, not in distress, speaks in sentences with no effort or accessory muscle use Eyes- anicteric Neck- no JVD Lungs- clear breath sounds bilaterally no wheezing, no crackles Heart- normal rate, regular rhythm; no murmurs Abdomen- normal bowel sounds, nondistended, soft, nontender Extremities- no pretibial edema, no calf tenderness Neuro- alert, oriented x 3; no gross focal neurologic deficits Skin- warm & dry Updated Medication List Medication Instructions Recorded Confirmed Type metformin 500 mg tablet,extended 1,000 mg PO QAM 04/15/19 03/15/22 History release 24 hr rosuvastatin 40 mg tablet 40 mg PO HS 04/15/19 03/15/22 History pantoprazole 40 mg tablet,delayed 40 mg PO DAILYBB 05/07/21 03/15/22 History release folic acid 1 mg tablet 1 mg PO QAM 01/24/22 03/15/22 History levothyroxine 75 mcg tablet 75 mcg PO DAILYBB 01/24/22 03/15/22 History phenytoin sodium extended 100 mg 200 mg PO QAM #60 caps 01/27/22 03/15/22 Rx capsule phenytoin sodium extended 100 mg 300 mg PO HS #90 caps 01/27/22 03/15/22 Rx capsule (Dilantin Extended) amlodipine 2.5 mg tablet 2.5 mg PO QAM 03/15/22 03/15/22 History aspirin 81 mg tablet,delayed 81 mg PO DAILY 03/15/22 03/15/22 History release cholecalciferol (vitamin D3) 25 50 mcg PO QAM 03/15/22 03/15/22 History mcg (1,000 unit) tablet (Vitamin D3) docusate sodium 100 mg capsule 100 mg PO AMHS 03/15/22 03/15/22 History folic acid 1 mg tablet 1 mg PO QAM 03/15/22 03/15/22 History loratadine 10 mg tablet 10 mg PO HS 03/15/22 03/15/22 History losartan 25 mg tablet 25 mg PO DAILY 03/15/22 03/15/22 History memantine 10 mg tablet 10 mg PO AMHS 03/15/22 03/15/22 History daptomycin 500 mg intravenous 300 mg IV DAILY #3 ea 03/22/22 Rx solution Hospital Stay Data Consultations 03/15/22 03:12 ED Decision to Admit Stat Diagnostic Imagining Performed 03/17/22 12:16 CT Abd and Pelvis [CT abd pelvis wo con] Urgent CLINICAL HISTORY: Abdominal pain TECHNIQUE: Helical axial images of the abdomen and pelvis were obtained. Automated dose lowering techniques and/or adjustment according to patient size were utilized for this exam. This exam was performed without intravenous contrast. CT DOSE: 921.10 mGy.cm COMPARISON: Comparison is made to CT abdomen pelvis 12/16/2019 FINDINGS: Lower chest: Bilateral pleural effusions are seen. There is a small pericardial effusion. Liver: Borderline hepatic steatosis. Gallbladder and biliary tree: Patient is status post cholecystectomy. No intra- or extrahepatic biliary ductal dilation. Pancreas: Fatty replacement of the pancreas is seen. Spleen: Unremarkable. Adrenals: Unremarkable. Kidneys and ureters: Nonobstructive nephrolithiasis is seen. Bladder: Unremarkable. Reproductive organs: Unremarkable. Bowel: The pelvic contents are seen in the rectum. Patient is status post appendectomy. A hiatal hernia is seen. A duodenal diverticulum is seen. Lymph nodes Retroperitoneal: Subcentimeter lymph nodes are noted. Pelvic: Subcentimeter lymph nodes are noted. Mesenteric: Unremarkable. Peritoneum: Fat stranding is seen in the central mesentery. Vessels: Atherosclerotic calcifications are seen. Multiple phleboliths are seen. Abdominal wall: Fat-containing supraumbilical hernia is again seen. There is a left inguinal hernia containing only fat. Bones: Degenerative changes in the visualized spine. Pars defects are seen at L5-S1 and there is grade 1 anterolisthesis. IMPRESSION: 1. Liquid rectal contents compatible with diarrhea. 2. Central mesenteric stranding, mesenteric panniculitis cannot be excluded. 3. Nonobstructive nephrolithiasis bilaterally. 4. Bilateral small pleural effusions and pericardial effusion. 5. Additional findings as above. ACT 112: Negative or not required by law. Electronically signed by: Otilio Broderick M.D. 03/17/2022 2:42 PM Pending Results Patient Have Any Pending Studies at Discharge: Yes Discharge Instructions Given to Patient (Per Discharging Provider) PLEASE REFER TO YOUR NEW MEDICATION LIST AND FOLLOW INSTRUCTIONS CAREFULLY. YOUR NEW MEDICATIONS INCLUDE: Daptomycin 300 mg IV daily x3 days Amlodipine increased to 5 mg p.o. daily Rosuvastatin on hold while on IV daptomycin, resume after daptomycin course has been completed PLEASE CALL YOUR PRIMARY CARE PHYSICIAN OR RETURN TO THE ER IF WITH WORSENING OF SYMPTOMS, INCLUDING Fever chills, abdominal pain, urinary symptoms, nausea vomiting, etc. FOLLOW UP WITH PRIMARY CARE PHYSICIAN OUTLINED ABOVE. Total Time Total Time Spent Total Time Spent (In Minutes): >30 minutes
== END 2022-03-22 13:35 | DRG 690 ==
LOC: ED 00:19 → 3W 04:07 → SUATTDRO 04:07 → 3W 06:07

== ENCOUNTER 2022-12-10 23:04 | Inpatient (IN) ==
[2022-12-10] MEDS ORDERED: NITROGLYCERIN SL 0.4 MG/TAB TAB SL STA (23:24)
[2022-12-10 23:46] LABS: Basophils # (auto) 0.05 K/uL (0-0.2); Basophils % (auto) 0.5 %; Eosinophils # (auto) 0.26 K/uL (0-0.50); Eosinophils % (auto) 2.4 %; Hemoglobin 11.2 g/dl (12.0-16.0); Immature Granulocytes # (auto) 0.03 K/uL (0.01-0.20); Immature Granulocytes % (auto) 0.3 %; Lymphocytes # (auto) 1.99 K/uL (1.2-3.4); Lymphocytes % (auto) 18.2 %; Mean Corpuscular Hemoglobin 21.8 pg (25.0-34.0); Mean Corpuscular Hgb Conc 29.5 g/dL (32.0-36.0); Mean Corpuscular Volume 73.9 fL (80.0-100.0); Mean Platelet Volume 9.8 fL (9.4-12.4); Monocytes # (auto) 0.58 K/uL (0.11-0.59); Monocytes % (auto) 5.3 %; Neutrophils # (auto) 8.05 K/uL (1.40-6.50); Neutrophils % (auto) 73.3 %; Platelet Count 265 K/uL (130-400); RDW Coefficient of Variation 18.3 % (11.5-14.5); RDW Standard Deviation 48.1 fL (36.4-46.3); Red Blood Count 5.14 M/uL (4.20-5.40); White Blood Count 10.96 K/ul (4.8-10.8)
--- NOTE | 2022-12-10 23:48 | Emergency Department Note ---
Impression & Plan Hypoxia, HTN (hypertension), Pleural effusion on right, Acute UTI ED Provider Note Provider: Jonathan Espitia MD DATE OF SERVICE: 12/10/2022 CHIEF COMPLAINT: Cough/wheezing, nausea and vomiting HISTORY OF PRESENT ILLNESS: Patient is a 77-year-old female with a past medical history of hypertension, CVA with right-sided deficits, peripheral vascular disease, diabetes, hypothyroidism, dementia, and seizure disorder as well as recurrent UTIs presenting here today via ambulance from her home. Patient states that around noon today she began develop some cough and wheeze. Had some nausea vomiting earlier received Zofran in route for the ambulance and this improves things. Patient states has been taking her medicines. Denies chest pain at all today or currently. Denies significant palpitations or abdominal discomfort to me. Patient states she believes her son called the ambulance. D enies falls to me. No fevers reported. Noted to be hypertensive for EMS received a DuoNeb, 120 mg Solu-Medrol, and again Zofran in route. PAST MEDICAL HISTORY: As noted above MEDICATIONS: Reviewed home medications SOCIAL HISTORY: Denies smoking or alcohol use PHYSICAL EXAM: GENERAL: alert and oriented in no acute distress on stretcher Head: normocephalic and atraumatic EYES: No injection, discharge or icterus. PERRL, EOMI. NECK: Trachea midline. Supple. ENT: Mucous membranes pink and moist. LUNGS: Airway patent. No retractions without tachypnea but some slight audible wheezing and more auscultated wheezing noted. HEART: Regular rate and rhythm. No chest wall tenderness ABDOMEN: Soft and non-tender, without guarding or rebound. No appreciable masses noted. SKIN: Acyanotic, warm, dry, without rashes EXTREMITIES: Without swelling, tenderness or deformity NEUROLOGICAL: Some mild to moderate right-sided deficits noted with contractures particularly of the right upper arm. No significant slurred speech. No severe facial droop. No aphasia noted. EK bpm sinus tachycardia. No PVC or PAC noted. No clear acute ST segment elevation beyond some slight elevation in aVR with some inferior lateral ST depression. Compared to previous from March 19, 2022 more pronounced inferior and lateral ST depression. CONTINUOUS CARDIAC MONITORING: was ordered and showed a heart rate of 100s-110s bpm in sinus tachy Patient's laboratory studies and imaging reviewed. Differential includes Infection, dehydration, metabolic abnormality, hypo/hyperglycemia, electrolyte disturbance, anemia, hypoxia, cardiac sources including ACS, neurologic, as well as other pathologies. 1 view chest x-ray: Per my interpretation cardiomegaly with some likely slight pleural effusions/blunting of the costophrenic angle but no evidence of consolidative pneumonia obviously noted. No obvious pneumothorax. No free air IMPRESSION/MEDICAL DECISION MAKING: Called to see patient by nursing given initial EKG. No clear STEMI but obvious signs of some inferior lateral ST depression. Somewhat tachycardic here. Severely hypertensive. Patient denies today at any point experiencing chest dis comfort including currently. Denies abdominal discomfort. Nausea resolved with Zofran in route. Still somewhat wheezy on exam but not significantly hypoxic. No sick contact reported. Reviewed home medication list and prior hospitalization here. Labetalol allergy and her tachycardia first given a dose of nitroglycerin to see if may help with her blood pressure which is severely elevated. May have hypertensive urgency versus emergency situation. Troponin sent to help evaluate the EKG changes although again the patient without clear ST segment elevation localized or will not clear heart alert at this point. Patient is on aspirin daily. Patient not with clear evidence of new neurologic al deficits by her report. Blood work with some slight leukocytosis of 10.9. Mild anemia 11.2. No signs of significant renal dysfunction. No signs of renal dysfunction. No evidence of pancreatitis. Slight AST elevation but no bilirubin elevation. Testing negative for COVID influenza and RSV. Troponin returns at 20 which is reassuring But given her EKG changes will bring in for evaluation. UA pending. Does desaturate requiring slight oxygen here. Given additional DuoNeb and will send for CT scan to exclude PE. CT without evidence of pulmonary embolism or pulmonary consolidation. Moderate right pleural effusion noted. May be contributing does not appear significantly fluid overloaded and do not see signs of significant lower edema. Will repeat troponin and get a BNP. Will bring to the hospital for further care. Will cover with doxycycline at this time for any atypical bacterial component. Urinalysis pending collection and given her history of resistant infections will need to monitor for infection here. We will give some Lasix to see if this improves things. Urinalysis later returns concerning for infection. Discussed with pharmacy and will cover with vancomyci n and cefepime given prior Pseudomonas as well as enteric coccus culture results in the system. DIAGNOSIS: Hypoxia, hypertension, right pleural effusion, probable UTI DISPOSITION: Hospitalist will evaluate Patient was agreeable with this plan. Past Med/Surg History Medical History Anemia Carotid artery stenosis CKD (chronic kidney disease), stage III Depression Diabetes mellitus, type II Diabetic nephropathy History of CVA (cerebrovascular accident) hx L MCA CVA with RHP 2001 HTN (hypertension) Hyperlipidemia Hypothyroid Overactive bladder Seizure disorder s/p CVA...20 years since last seizure TIA (transient ischemic attack) 2001 - no residual effects - does not follow doctor Surgical History History of appendectomy History of cholecystectomy History of colonoscopy Hx of cataract extraction right eye Family History Father Cancer Brother Myocardial infarction Social History Smoking Status: Never smoker Second Hand Exposure: No; Do You Dip or Chew Tobacco: No; Hx Alcohol Use: No Hx Substance Use: No Preferred Language: Setswana Communication Ability: Effective Neon Sign Maker Required: No Beliefs That Will Affect Care: None Current Living Situation: Family Current Living Situation Comment: w/son Keith How many Children do You have: 3 Feels Safe at Home: Yes Assistive Devices: Wheelchair Allergies Allergies Allergy/AdvReac Type Severity Reaction Status Date / Time labetalol AdvReac Intermediate nausea/vomi Verified 12/10/22 23:47 ting lisinopril AdvReac Intermediate Dizziness Verified 12/10/22 23:47 Home Meds Home Medications Medication Instructions Recorded Confirmed metformin 500 mg tablet,extended 1,000 mg PO QAM 04/15/19 12/11/22 release 24 hr pantoprazole 40 mg tablet,delayed 40 mg PO DAILYBB 05/07/21 12/11/22 release levothyroxine 75 mcg tablet 75 mcg PO DAILYBB 01/24/22 12/11/22 aspirin 81 mg tablet,delayed 81 mg PO DAILY 03/15/22 12/11/22 release cholecalciferol (vitamin D3) 25 50 mcg PO QAM 03/15/22 12/11/22 mcg (1,000 unit) tablet (Vitamin D3) docusate sodium 100 mg capsule 100 mg PO AMHS 03/15/22 12/11/22 folic acid 1 mg tablet 1 mg PO QAM 03/15/22 12/11/22 loratadine 10 mg tablet 10 mg PO HS 03/15/22 12/11/22 losartan 25 mg tablet 25 mg PO DAILY 03/15/22 12/11/22 memantine 10 mg tablet 10 mg PO AMHS 03/15/22 12/11/22 amlodipine 5 mg tablet 5 mg PO DAILY 12/10/22 12/10/22 benzonatate 100 mg capsule 100 mg PO TID PRN Cough 12/10/22 12/10/22 donepezil 10 mg tablet 10 mg PO QAM 12/10/22 12/10/22 [id number]-GG 6.25 15 ml PO Q4H PRN Cold Symptoms 12/10/22 12/11/22 mg-5 mg-325 mg/15 mL(nt) oral liquids guaifenesin 600 mg tablet, 600 mg PO Q12H PRN Cough 12/10/22 12/10/22 extended release 12 hr (Mucinex) lamotrigine 25 mg tablet,extended 25 mg PO DIRECTED 12/10/22 12/11/22 release 24 hr ondansetron HCl 4 mg tablet 4 mg PO Q8H PRN NAUSEA/VOMITING 12/10/22 12/10/22 polyethylene glycol 3350 17 17 g PO DAILY PRN Constipation 12/10/22 12/10/22 gram/dose oral powder (Miralax) rosuvastatin 40 mg tablet 40 mg PO HS 12/10/22 12/10/22 phenytoin sodium extended 100 mg See Rx Instructions .Route .COMPLEX 12/11/22 12/11/22 capsule Results & Data (ED) Vital Signs Vital Signs - 24 hr 12/10/22 23:08 12/10/22 23:12 12/10/22 23:12 Temperature 36.9 C Temperature Source Oral Pulse Rate 111 H 116 H 120 H Pulse Rhythm Regular Pulse Strength Normal Respiratory Rate 26 H 18 Respiratory Effort / Characteristics Non-Labored Spontaneous Respiratory Depth Normal Respiratory Pattern Regular Blood Pressure 254/126 H 212/140 H Blood Pressure Mean 168 164 Blood Pressure Position Sitting Pulse Oximetry 94 94 Oxygen Delivery Method Room Air Room Air Oxygen Flow Rate Sepsis Recent Fever Within 48 Hours No Sepsis New/Unexplained Change in Mental Status N/A Sepsis Action Taken by Nursing No Action Required 12/10/22 23:50 12/11/22 00:00 Temperature Temperature Source Pulse Rate 110 H 109 H Pulse Rhythm Pulse Strength Respiratory Rate 20 20 Respiratory Effort / Characteristics Respiratory Depth Respiratory Pattern Blood Pressure 125/69 157/80 H Blood Pressure Mean 87 105 Blood Pressure Position Pulse Oximetry 84 L 96 Oxygen Delivery Method Room Air Nasal Cannula Oxygen Flow Rate 2 Sepsis Recent Fever Within 48 Hours Sepsis New/Unexplained Change in Mental Status Sepsis Action Taken by Nursing Laboratory Data 12/10/22 23:20 12/10/22 23:20 Lab Results 12/10/22 12/10/22 12/10/22 Range/Units 23:20 23:20 23:20 WBC 10.96 H (4.8-10.8) K/ul RBC 5.14 (4.20-5.40) M/uL Hgb 11.2 L (12.0-16.0) g/dl Hct 38.0 (37.0-47.0) % MCV 73.9 L (80.0-100.0) fL MCH 21.8 L (25.0-34.0) pg MCHC 29.5 L (32.0-36.0) g/dL RDW Std Deviation 48.1 H (36.4-46.3) fL RDW Coeff of Maurice 18.3 H (11.5-14.5) % Plt Count 265 (130-400) K/uL MPV 9.8 (9.4-12.4) fL Immature Gran % (Auto) 0.3 % Neut % (Auto) 73.3 % Lymph % (Auto) 18.2 % [place] % (Auto) 5.3 % Eos % (Auto) 2.4 % Baso % (Auto) 0.5 % Neut # (Auto) 8.05 H (1.40-6.50) K/uL Lymph # (Auto) 1.99 (1.2-3.4) K/uL [place] # (Auto) 0.58 (0.11-0.59) K/uL Eos # (Auto) 0.26 (0-0.50) K/uL Baso # (Auto) 0.05 (0-0.2) K/uL Immature Gran # (Auto) 0.03 (0.01-0.20) K/uL APTT (21.0-31.0) Seconds PTT Ratio ABG pH (7.35-7.45) ABG pCO2 (35-46) mmHg ABG pO2 (80-95) mmHg ABG HCO3 (19-24) mmol/L ABG O2 Saturation (90-95) % ABG Base Excess (-9-1.8) mEq/L Sodium 135 L (136-145) mmol/L Potassium 3.7 (3.5-5.1) mmol/L Chloride 98 (98-107) mmol/L Carbon Dioxide 27 (21-32) mmol/L Anion Gap 10 (3-11) BUN 13 (6-23) mg/dl Creatinine 0.75 (0.6-1.2) mg/dl Est Cr Clr Drug Dosing 60.9 ml/min Est GFR ( Amer) 89.7 ml/min Est GFR (Non-Af Amer) 77.4 ml/min BUN/Creatinine Ratio 17.3 (10-20) Glucose 156 H (70-99(Fasting)) mg/dl Calcium 9.3 (8.6-10.3) mg/dl Magnesium 1.7 (1.7-2.4) mg/dl Total Bilirubin 0.3 (0.2-1.0) mg/dl AST 47 H (13-39) U/L ALT 34 (7-52) U/L Alkaline Phosphatase 125 H (34-104) U/L Troponin I High Sens 20.2 H (0-14) pg/ml B-Natriuretic Peptide (0-100) pg/ml Total Protein 8.4 H (6.0-8.3) gm/dl Albumin 4.4 (3.4-5.0) gm/dl Globulin 4.0 (2.5-4.0) gm/dl Albumin/Globulin Ratio 1.1 (0.9-2) Lipase 79 (11-82) U/L TSH (0.300-4.500) uIu/ml Free T4 Urine Color Urine Appearance (Clear) Urine pH (4.5-7.5) Ur Specific [place] (1.000-1.030) Urine Protein (Negative) Urine Glucose (UA) (Negative) Urine Ketones (Negative) Urine Blood (Negative) Urine Nitrite (Negative) Urine Bilirubin (Negative) Urine Urobilinogen (Negative) Ur Leukocyte Esterase (Negative) Urine WBC (Auto) (0-5) /hpf Urine RBC (Auto) (0-4) /hpf U Hyaline Cast (Auto) (0-5) /lpf U Epithel Cells (Auto) (0-5) /lpf Urine Bacteria (Auto) (Negative) SARS-CoV-2 (PCR) NEGATIVE (Negative) Influenza Type A (PCR) Negative (Neg) Influenza Type B (PCR) Negative (Neg) RSV (RT-PCR) Negative (Neg) 12/10/22 12/10/22 12/11/22 Range/Units 23:20 23:20 02:00 WBC (4.8-10.8) K/ul RBC (4.20-5.40) M/uL Hgb (12.0-16.0) g/dl Hct (37.0-47.0) % MCV (80.0-100.0) fL MCH (25.0-34.0) pg MCHC (32.0-36.0) g/dL RDW Std Deviation (36.4-46.3) fL RDW Coeff of Maurice (11.5-14.5) % Plt Count (130-400) K/uL MPV (9.4-12.4) fL Immature Gran % (Auto) % Neut % (Auto) % Lymph % (Auto) % [place] % (Auto) % Eos % (Auto) % Baso % (Auto) % Neut # (Auto) (1.40-6.50) K/uL Lymph # (Auto) (1.2-3.4) K/uL [place] # (Auto) (0.11-0.59) K/uL Eos # (Auto) (0-0.50) K/uL Baso # (Auto) (0-0.2) K/uL Immature Gran # (Auto) (0.01-0.20) K/uL APTT 28.4 (21.0-31.0) Seconds PTT Ratio 1.0 ABG pH (7.35-7.45) ABG pCO2 (35-46) mmHg ABG pO2 (80-95) mmHg ABG HCO3 (19-24) mmol/L ABG O2 Saturation (90-95) % ABG Base Excess (-9-1.8) mEq/L Sodium (136-145) mmol/L Potassium (3.5-5.1) mmol/L Chloride (98-107) mmol/L Carbon Dioxide (21-32) mmol/L Anion Gap (3-11) BUN (6-23) mg/dl Creatinine (0.6-1.2) mg/dl Est Cr Clr Drug Dosing ml/min Est GFR ( Amer) ml/min Est GFR (Non-Af Amer) ml/min BUN/Creatinine Ratio (10-20) Glucose (70-99(Fasting)) mg/dl Calcium (8.6-10.3) mg/dl Magnesium (1.7-2.4) mg/dl Total Bilirubin (0.2-1.0) mg/dl AST (13-39) U/L ALT (7-52) U/L Alkaline Phosphatase (34-104) U/L Troponin I High Sens (0-14) pg/ml B-Natriuretic Peptide (0-100) pg/ml Total Protein (6.0-8.3) gm/dl Albumin (3.4-5.0) gm/dl Globulin (2.5-4.0) gm/dl Albumin/Globulin Ratio (0.9-2) Lipase (11-82) U/L TSH 4.566 H (0.300-4.500) uIu/ml Free T4 Cancelled Urine Color Yellow Urine Appearance Clear (Clear) Urine pH 7.0 (4.5-7.5) Ur Specific [place] 1.024 (1.000-1.030) Urine Protein 1+ H (Negative) Urine Glucose (UA) Negative (Negative) Urine Ketones Negative (Negative) Urine Blood Trace H (Negative) Urine Nitrite Negative (Negative) Urine Bilirubin Negative (Negative) Urine Urobilinogen Negative (Negative) Ur Leukocyte Esterase 2+ H (Negative) Urine WBC (Auto) 10-30 H (0-5) /hpf Urine RBC (Auto) 0-4 (0-4) /hpf U Hyaline Cast (Auto) 0 (0-5) /lpf U Epithel Cells (Auto) 20-30 H (0-5) /lpf Urine Bacteria (Auto) Negative (Negative) SARS-CoV-2 (PCR) (Negative) Influenza Type A (PCR) (Neg) Influenza Type B (PCR) (Neg) RSV (RT-PCR) (Neg) 12/11/22 12/11/22 12/11/22 Range/Units 02:18 02:21 02:21 WBC (4.8-10.8) K/ul RBC (4.20-5.40) M/uL Hgb (12.0-16.0) g/dl Hct (37.0-47.0) % MCV (80.0-100.0) fL MCH (25.0-34.0) pg MCHC (32.0-36.0) g/dL RDW Std Deviation (36.4-46.3) fL RDW Coeff of Maurice (11.5-14.5) % Plt Count (130-400) K/uL MPV (9.4-12.4) fL Immature Gran % (Auto) % Neut % (Auto) % Lymph % (Auto) % [place] % (Auto) % Eos % (Auto) % Baso % (Auto) % Neut # (Auto) (1.40-6.50) K/uL Lymph # (Auto) (1.2-3.4) K/uL [place] # (Auto) (0.11-0.59) K/uL Eos # (Auto) (0-0.50) K/uL Baso # (Auto) (0-0.2) K/uL Immature Gran # (Auto) (0.01-0.20) K/uL APTT (21.0-31.0) Seconds PTT Ratio ABG pH 7.40 (7.35-7.45) ABG pCO2 35 (35-46) mmHg ABG pO2 120 H (80-95) mmHg ABG HCO3 22 (19-24) mmol/L ABG O2 Saturation > 100.0 H (90-95) % ABG Base Excess -2.5 (-9-1.8) mEq/L Sodium (136-145) mmol/L Potassium (3.5-5.1) mmol/L Chloride (98-107) mmol/L Carbon Dioxide (21-32) mmol/L Anion Gap (3-11) BUN (6-23) mg/dl Creatinine (0.6-1.2) mg/dl Est Cr Clr Drug Dosing ml/min Est GFR ( Amer) ml/min Est GFR (Non-Af Amer) ml/min BUN/Creatinine Ratio (10-20) Glucose (70-99(Fasting)) mg/dl Calcium (8.6-10.3) mg/dl Magnesium (1.7-2.4) mg/dl Total Bilirubin (0.2-1.0) mg/dl AST (13-39) U/L ALT (7-52) U/L Alkaline Phosphatase (34-104) U/L Troponin I High Sens 17.4 H (0-14) pg/ml B-Natriuretic Peptide 242 H (0-100) pg/ml Total Protein (6.0-8.3) gm/dl Albumin (3.4-5.0) gm/dl Globulin (2.5-4.0) gm/dl Albumin/Globulin Ratio (0.9-2) Lipase (11-82) U/L TSH (0.300-4.500) uIu/ml Free T4 Urine Color Urine Appearance (Clear) Urine pH (4.5-7.5) Ur Specific [place] (1.000-1.030) Urine Protein (Negative) Urine Glucose (UA) (Negative) Urine Ketones (Negative) Urine Blood (Negative) Urine Nitrite (Negative) Urine Bilirubin (Negative) Urine Urobilinogen (Negative) Ur Leukocyte Esterase (Negative) Urine WBC (Auto) (0-5) /hpf Urine RBC (Auto) (0-4) /hpf U Hyaline Cast (Auto) (0-5) /lpf U Epithel Cells (Auto) (0-5) /lpf Urine Bacteria (Auto) (Negative) SARS-CoV-2 (PCR) (Negative) Influenza Type A (PCR) (Neg) Influenza Type B (PCR) (Neg) RSV (RT-PCR) (Neg) Administered Medications Magnesium Sulfate/Dextrose (Magnesium Sulfate / D5w) 1 gm in 100 mls @ 50 mls/hr IV Q2H AMAURI Stop: 12/11/22 06:14 Last Admin: 12/11/22 02:39 Dose: 50 mls/hr Documented By: ROCKY Discontinued Medications Albuterol (Albut/Ipratrop 3mg/0.5mg Neb 3 Ml Vial) 3 ml NEB NOW STA; Protocol Stop: 12/11/22 00:45 Last Admin: 12/11/22 01:35 Dose: 3 ml Documented By: ROCKY Doxycycline Hyclate (Doxycycline Hyclate 100 Mg Cap) 100 mg PO NOW STA Stop: 12/11/22 01:52 Last Admin: 12/11/22 02:34 Dose: 100 mg Documented By: ROCKY Furosemide (Furosemide Inj 20 Mg/2 Ml Vial) 20 mg IV ONE ONE Stop: 12/11/22 01:52 Last Admin: 12/11/22 02:36 Dose: 20 mg Documented By: ROCKY Ioversol (Optiray 320 125ml) 125 ml IV ONCE ONE Stop: 12/11/22 01:22 Last Admin: 12/11/22 01:22 Dose: 114 ml Documented By: KYLE Nitroglycerin (Nitroglycerin Sl 0.4 Mg/Tab Tab) 0.4 mg SL NOW STA Stop: 12/10/22 23:25 Last Admin: 12/10/22 23:37 Dose: 0.4 mg Documented By: ROCKY Potassium Chloride (Potassium Chloride Crtab 20 Meq Tabcr) 40 meq PO NOW STA Stop: 12/11/22 02:17 Last Admin: 12/11/22 02:34 Dose: 40 meq Documented By: ROCKY Imaging Data Radiologist's Impression: Chest CTA 12/11/22 00:43 Exam(s): CTA CHEST IV Amt: 114 ml optiray 320 EXAM: CT Angiography Chest With Intravenous Contrast CLINICAL HISTORY: Reason for exam: PE, sob, tachy, hypoxia. TECHNIQUE: Axial computed tomographic angiography images of the chest with intravenous contrast. CTDI is 23.76 mGy and DLP is 753.22 mGy-cm. Automated exposure control was utilized for the study. A dose lowering technique was utilized adhering to the principles of ALARA. MIP reconstructed images were created and reviewed. COMPARISON: No relevant prior studies available. FINDINGS: Pulmonary arteries: Unremarkable. No pulmonary embolism. Aorta: No acute findings. No thoracic aortic aneurysm. Lungs: Bibasilar atelectasis. No mass. Pleural space: Moderate right pleural effusion. No pneumothorax. Heart: Unremarkable. No cardiomegaly. No significant pericardial effusion. No evidence of RV dysfunction. Bones/joints: Degenerative change of the thoracolumbar spine. No acute fracture. No dislocation. Soft tissues: Unremarkable. Lymph nodes: Unremarkable. No enlarged lymph nodes. Gallbladder and bile ducts: Status post cholecystectomy. IMPRESSION: Moderate right pleural effusion. No pulmonary embolus or dense parenchymal consolidation. Electronically signed by: Jorge Tinoco MD 12/11/22 01:30 AM Discharge Plan Visit Data Chief Complaint: Illness Stated Complaint: Cough, Wheezing, Vomiting ED Provider: Jonathan Espitia Discharge Problem: Hypoxia, HTN (hypertension), Pleural effusion on right, Acute UTI Patient Disposition: Being Evaluated by Hospitalist Forms Stand Alone Forms: [facility] Prescriptions Prescriptions: No Action metformin 500 mg tablet extended release 24 hr 1,000 mg PO QAM levothyroxine 75 mcg tablet 75 mcg PO DAILYBB aspirin 81 mg Tablet,Delayed Release (Dr/Ec) 81 mg PO DAILY memantine 10 mg tablet 10 mg PO AMHS losartan 25 mg tablet 25 mg PO DAILY folic acid 1 mg tablet 1 mg PO QAM loratadine 10 mg Tablet 10 mg PO HS docusate sodium 100 mg capsule 100 mg PO AMHS cholecalciferol (vitamin D3) [Vitamin D3] 25 mcg (1,000 unit) Tablet 50 mcg PO QAM donepezil 10 mg tablet 10 mg PO QAM ondansetron HCl [Zofran] 4 mg Tablet 4 mg PO Q8H PRN (Reason: NAUSEA/VOMITING) amlodipine 5 mg Tablet 5 mg PO DAILY benzonatate 100 mg capsule 100 mg PO TID PRN (Reason: Cough) polyethylene glycol 3350 [Miralax] 17 gram/dose Powder 17 g PO DAILY PRN (Reason: Constipation) rosuvastatin 40 mg tablet 40 mg PO HS lamotrigine 25 mg tablet extended release 24hr 25 mg PO DIRECTED Rx Instructions: STARTED 11/19/22-- WEEK 3 & 4 TAKE 2 TABS DAILY. DECEMBER 31, 2022 DOSE INCREASES TO 200 MG X 7 DAYS. Tylenol Yvuc-Upm-Tcwhu Dy-Nt 6.25-5-325 mg/15 mL (nt) Liquid, Sequential 15 ml PO Q4H PRN (Reason: Cold Symptoms) guaifenesin [Mucinex] 600 mg Tablet Extended Release 12hr 600 mg PO Q12H PRN (Reason: Cough) phenytoin sodium extended 100 mg capsule See Rx Instructions .ROUTE .COMPLEX Rx Instructions: TAKE 200 MG QAM, THEN 300 MG QHS. pantoprazole 40 mg tablet,delayed release (DR/EC) 40 mg PO DAILYBB Referrals Referrals: PCP,NO [Physician] -
[2022-12-10 23:58] LABS: Albumin Globulin Ratio 1.1 (0.9-2); Albumin Level 4.4 gm/dl (3.4-5.0); BUN Creatinine Ratio 17.3 (10-20); Bilirubin,Total 0.3 mg/dl (0.2-1.0); Calcium 9.3 mg/dl (8.6-10.3); Creatinine Clr Calc Pharmacy 60.9 ml/min; Est GFR (African American) 89.7 ml/min; Est GFR (Non-African American) 77.4 ml/min; Magnesium 1.7 mg/dl (1.7-2.4); Potassium 3.7 mmol/L (3.5-5.1); Total Protein 8.4 gm/dl (6.0-8.3)
[2022-12-11 00:05] LABS: Troponin I High Sensitivity 20.2 pg/ml (0-14)
[2022-12-11 00:08] LABS: Influenza A virus by PCR Negative (Neg); Influenza B virus by PCR Negative (Neg); RSV by PCR Negative (Neg); SARS CoV2 RNA(COVID-19) Ceph NEGATIVE (Negative)
[2022-12-11] MEDS ORDERED: ALBUT/IPRATROP 3MG/0.5MG NEB 3 ML VIAL NEB STA (00:44)
[2022-12-11] MEDS ORDERED: OPTIRAY 320 125ml IV ONE (01:21)
--- NOTE | 2022-12-11 01:31 | CT Scan Report ---
Exam(s): CTA CHEST IV Amt: 114 ml optiray 320 EXAM: CT Angiography Chest With Intravenous Contrast CLINICAL HISTORY: Reason for exam: PE, sob, tachy, hypoxia. TECHNIQUE: Axial computed tomographic angiography images of the chest with intravenous contrast. CTDI is 23.76 mGy and DLP is 753.22 mGy-cm. Automated exposure control was utilized for the study. A dose lowering technique was utilized adhering to the principles of ALARA. MIP reconstructed images were created and reviewed. COMPARISON: No relevant prior studies available. FINDINGS: Pulmonary arteries: Unremarkable. No pulmonary embolism. Aorta: No acute findings. No thoracic aortic aneurysm. Lungs: Bibasilar atelectasis. No mass. Pleural space: Moderate right pleural effusion. No pneumothorax. Heart: Unremarkable. No cardiomegaly. No significant pericardial effusion. No evidence of RV dysfunction. Bones/joints: Degenerative change of the thoracolumbar spine. No acute fracture. No dislocation. Soft tissues: Unremarkable. Lymph nodes: Unremarkable. No enlarged lymph nodes. Gallbladder and bile ducts: Status post cholecystectomy. IMPRESSION: Moderate right pleural effusion. No pulmonary embolus or dense parenchymal consolidation. Electronically signed by: Jorge Tinoco MD 12/11/22 01:30 AM
[2022-12-11] MEDS ORDERED: FUROSEMIDE INJ 20 MG/2 ML VIAL IV ONE (01:51)
[2022-12-11] MEDS ORDERED: DOXYCYCLINE HYCLATE 100 MG CAP PO STA (01:51)
[2022-12-11] MEDS ORDERED: POTASSIUM CHLORIDE CRTAB 20 MEQ TABCR PO STA (02:16)
[2022-12-11 02:17] LABS: Appearance Urine Clear (Clear); Bacteria Urine Automated Negative (Negative); Bilirubin Urine Negative (Negative); Blood Urine Trace (Negative); Cast Urine Automated 0 /lpf (0-5); Color Urine Yellow; Epithelial Cell Urine Auto 20-30 /lpf (0-5); Glucose Urine UA Negative (Negative); Ketones Urine Negative (Negative); Leukocyte Esterase Urine 2+ (Negative); Nitrite Urine Negative (Negative); Protein Urine 1+ (Negative); RBC Urine Automated 0-4 /hpf (0-4); Specific Gravity Urine 1.024 (1.000-1.030); Urobilinogen Urine Negative (Negative)
[2022-12-11 02:23] LABS: Base Excess ABG -2.5 mEq/L (-9-1.8); HCO3 ABG 22 mmol/L (19-24); Oxygen Saturation ABG > 100.0 % (90-95); PCO2 ABG 35 mmHg (35-46); PO2 ABG 120 mmHg (80-95)
[2022-12-11 02:26] LABS: Partial Thromboplastin Time 28.4 Seconds (21.0-31.0)
[2022-12-11] MEDS: MAGNESIUM SULFATE / D5W 1 GM/100 ML BAG IV SCH ×2 (02:39→04:30)
[2022-12-11] MEDS ORDERED: VANCOMYCIN CONSULT ACTIVE PRN (02:51)
[2022-12-11] MEDS ORDERED: CEFEPIME 2,000 MG/20 ML VIAL IV STA (02:51)
[2022-12-11] MEDS ORDERED: VANCOMYCIN HCL 1,500 MG in SODIUM CHLORIDE 0.9% 500 ML IV ONE (02:51)
[2022-12-11 03:12] LABS: Allen Test Pos (Pos)
[2022-12-11] MEDS ORDERED: METOPROLOL TARTRATE 1 MG/ML VIAL IV STA (04:59)
[2022-12-11] MEDS ORDERED: BENZONATATE 100 MG CAPSULE PO ONE (05:50)
--- NOTE | 2022-12-11 05:50 | History & Physical Report ---
Date of Service December 11, 2022 Assessment & Plan (1) CHF (congestive heart failure): Plan: Acute CHF possibly from uncontrolled blood pressure hx CVA, PVD hx PSVT as per records DM2 on oral medications, reasonable control as of recent hemoglobin A1c of 7.1 last October 2022 hypothyroidism, TSH slight elevated chronic anemia, hemoglobin better than baseline Seizure disorder, stable on regimen (patient recently started outpatient on Lamictal course by [facility] neurologist. Eventual plan to wean down/off Dilantin as per specialist note.) Asymptomatic pyuria, no sepsis for now dementia, patient mentating well PCU Diuretic Rx Titrate home BP meds Initiate beta-pepe strict I/Os, daily weights, CHF education, fluid restriction for now TTE, Cardiology consult Re: CHF Follow urine CS, hold off on antibiotics for now for asymptomatic pyuria Basal bolus insulin, ISS BG goal 1 10-1 40, carb count coverage, update hemoglobin A1c PT OT eval DVT prophylaxis per Lovenox subcu Full code Patient requests for her son to be updated of her progress. Mr. Keith Lemon, contact #[phone] Text document was generated using [employer] voice recognition software. It may contain grammatical or spelling errors. Kindly contact undersigned for clarification of any documentation item in question. History of Present Illness Chief Complaint: Dry cough, shortness of breath Primary Care Provider: Royer Jones MD History obtained from patient and records. Medical history significant for hypertension, CVA, PSVT, PVD, DM2 on oral medications, hypothyroidism, chronic anemia (baseline hemoglobin 9-10), dementia, seizure disorder. Last confinement March 2022 for Enterococcus UTI. Patient completed daptomycin course. Yesterday, patient had sudden onset dry cough followed by shortness of breath symptoms without chest pain. Compliant with home medications. Denies aspiration. Some fluid retention as per patient. Denies headache, abdominal pain, dysuria symptoms. SBP 200s upon EMS arrival. IV Lasix administered at the ER. 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 Allergies Allergy/AdvReac Type Severity Reaction Status Date / Time labetalol AdvReac Intermediate nausea/vomi Verified 12/10/22 23:47 ting lisinopril AdvReac Intermediate Dizziness Verified 12/10/22 23:47 Home Medications Medication Instructions Recorded Confirmed Type metformin 500 mg tablet,extended 1,000 mg PO QAM 04/15/19 12/11/22 History release 24 hr pantoprazole 40 mg tablet,delayed 40 mg PO DAILYBB 05/07/21 12/11/22 History release levothyroxine 75 mcg tablet 75 mcg PO DAILYBB 01/24/22 12/11/22 History aspirin 81 mg tablet,delayed 81 mg PO DAILY 03/15/22 12/11/22 History release cholecalciferol (vitamin D3) 25 50 mcg PO QAM 03/15/22 12/11/22 History mcg (1,000 unit) tablet (Vitamin D3) docusate sodium 100 mg capsule 100 mg PO AMHS 03/15/22 12/11/22 History folic acid 1 mg tablet 1 mg PO QAM 03/15/22 12/11/22 History loratadine 10 mg tablet 10 mg PO HS 03/15/22 12/11/22 History losartan 25 mg tablet 25 mg PO DAILY 03/15/22 12/11/22 History memantine 10 mg tablet 10 mg PO AMHS 03/15/22 12/11/22 History amlodipine 5 mg tablet 5 mg PO DAILY 12/10/22 12/10/22 History benzonatate 100 mg capsule 100 mg PO TID PRN Cough 12/10/22 12/10/22 History donepezil 10 mg tablet 10 mg PO QAM 12/10/22 12/10/22 History qqahabf-TO-WA-acetamin-GG 6.25 15 ml PO Q4H PRN Cold Symptoms 12/10/22 12/11/22 History mg-5 mg-325 mg/15 mL(nt) oral liquids guaifenesin 600 mg tablet, 600 mg PO Q12H PRN Cough 12/10/22 12/10/22 History extended release 12 hr (Mucinex) lamotrigine 25 mg tablet,extended 25 mg PO DIRECTED 12/10/22 12/11/22 History release 24 hr ondansetron HCl 4 mg tablet 4 mg PO Q8H PRN NAUSEA/VOMITING 12/10/22 12/10/22 History polyethylene glycol 3350 17 17 g PO DAILY PRN Constipation 12/10/22 12/10/22 History gram/dose oral powder (Miralax) rosuvastatin 40 mg tablet 40 mg PO HS 12/10/22 12/10/22 History phenytoin sodium extended 100 mg See Rx Instructions .Route .COMPLEX 12/11/22 12/11/22 History capsule Past Med/Surg History Medical History Anemia Carotid artery stenosis CKD (chronic kidney disease), stage III Depression Diabetes mellitus, type II Diabetic nephropathy History of CVA (cerebrovascular accident) hx L MCA CVA with RHP 2001 HTN (hypertension) Hyperlipidemia Hypothyroid Overactive bladder Seizure disorder s/p CVA...20 years since last seizure TIA (transient ischemic attack) 2001 - no residual effects - does not follow doctor Surgical History History of appendectomy History of cholecystectomy History of colonoscopy Hx of cataract extraction right eye Family History Father Cancer Brother Myocardial infarction Social History Smoking Status: Never smoker Second Hand Exposure: No; Do You Dip or Chew Tobacco: No; Hx Alcohol Use: No Hx Substance Use: No Preferred Language: Thai Communication Ability: Effective Spinner Operator Required: No Beliefs That Will Affect Care: None Current Living Situation: Family Current Living Situation Comment: Lives with her son, Bela, and Mildreds brothers How many Children do You have: 3 Other Information That Helps Us Care for You: No Feels Safe at Home: Yes Safety Concerns: Feels Safe At This Time Assistive Devices: Wheelchair Review of Systems Review of Systems: As per HPI, all other systems reviewed and negative Physical Exam Physical Exam: GENERAL: Slightly uncomfortable, pleasant, chronic dysarthria, obese, no respiratory distress SKIN: Pallor, warm HEENT: Pale palpebral conjunctivae, no ptosis, chronic facial asymmetry, dry buccal mucosa, nasal cannula in place NECK : Supple, short neck, no tenderness CHEST : Decreased breath sounds, no tenderness HEART : RRR, no obvious murmurs ABDOMEN: Some distention, nontender EXTREMITIES : Minimal LE swelling, no LE tenderness, chronic RUE spastic contracture NEUROLOGIC : Coherent, chronic facial asymmetry, chronic RUE paresis, chronic dysarthria, gait and stance not assessed Results & Data Results & Data Vital Signs (Past 12 Hours) Vital Signs Temp Pulse Resp BP Pulse Ox O2 Del Method O2 Flow Rate 12/11/22 05:36 84 170/86 H 12/11/22 05:00 92 H 20 142/69 H 98 Nasal Cannula 2 12/11/22 04:30 100 H 20 158/83 H 97 Room Air 2 12/11/22 04:00 97 H 20 161/74 H 97 Nasal Cannula 2 12/11/22 05:17 88 12/11/22 03:30 102 H 20 175/113 H 96 Nasal Cannula 2 12/11/22 03:00 105 H 20 179/94 H 98 Nasal Cannula 2 12/11/22 02:30 105 H 20 171/78 H 99 Nasal Cannula 2 12/11/22 02:05 110 H 20 180/101 H 98 Nasal Cannula 2 12/11/22 01:30 105 H 20 163/72 H 97 Nasal Cannula 2 12/11/22 01:00 100 H 20 169/78 H 98 Nasal Cannula 2 12/11/22 00:30 105 H 21 196/91 H 97 Nasal Cannula 2 12/11/22 00:00 105 H 21 157/80 H 97 Nasal Cannula 2 12/11/22 00:00 109 H 20 157/80 H 96 Nasal Cannula 2 12/10/22 23:50 110 H 20 125/69 84 L Room Air 12/10/22 23:12 120 H 18 212/140 H 94 Room Air 12/10/22 23:12 116 H 12/10/22 23:08 36.9 C 111 H 26 H 254/126 H 94 Room Air Laboratory Results Laboratory Results WBC 10.96 K/ul (4.8-10.8) H 12/10/22 23:20 RBC 5.14 M/uL (4.20-5.40) 12/10/22 23:20 Hgb 11.2 g/dl (12.0-16.0) L 12/10/22 23:20 Hct 38.0 % (37.0-47.0) 12/10/22 23:20 MCV 73.9 fL (80.0-100.0) L 12/10/22 23:20 MCH 21.8 pg (25.0-34.0) L 12/10/22 23:20 MCHC 29.5 g/dL (32.0-36.0) L 12/10/22 23:20 RDW Std Deviation 48.1 fL (36.4-46.3) H 12/10/22 23:20 RDW Coeff of Maurice 18.3 % (11.5-14.5) H 12/10/22 23:20 Plt Count 265 K/uL (130-400) 12/10/22 23:20 MPV 9.8 fL (9.4-12.4) 12/10/22 23:20 Immature Gran % (Auto) 0.3 % 12/10/22 23:20 Neut % (Auto) 73.3 % 12/10/22 23:20 Lymph % (Auto) 18.2 % 12/10/22 23:20 [place] % (Auto) 5.3 % 12/10/22 23:20 Eos % (Auto) 2.4 % 12/10/22 23:20 Baso % (Auto) 0.5 % 12/10/22 23:20 Neut # (Auto) 8.05 K/uL (1.40-6.50) H 12/10/22 23:20 Lymph # (Auto) 1.99 K/uL (1.2-3.4) 12/10/22 23:20 [place] # (Auto) 0.58 K/uL (0.11-0.59) 12/10/22 23:20 Eos # (Auto) 0.26 K/uL (0-0.50) 12/10/22 23:20 Baso # (Auto) 0.05 K/uL (0-0.2) 12/10/22 23:20 Immature Gran # (Auto) 0.03 K/uL (0.01-0.20) 12/10/22 23:20 APTT 28.4 Seconds (21.0-31.0) 12/10/22 23:20 PTT Ratio 1.0 12/10/22 23:20 ABG pH 7.40 (7.35-7.45) 12/11/22 02:18 ABG pCO2 35 mmHg (35-46) 12/11/22 02:18 ABG pO2 120 mmHg (80-95) H 12/11/22 02:18 ABG HCO3 22 mmol/L (19-24) 12/11/22 02:18 ABG O2 Saturation > 100.0 % (90-95) H 12/11/22 02:18 ABG Base Excess -2.5 mEq/L (-9-1.8) 12/11/22 02:18 Brett Test Pos (Pos) 12/11/22 02:18 Oxygen Given 2 L 12/11/22 02:18 Sodium 135 mmol/L (136-145) L 12/10/22 23:20 Potassium 3.7 mmol/L (3.5-5.1) 12/10/22 23:20 Chloride 98 mmol/L (98-107) 12/10/22 23:20 Carbon Dioxide 27 mmol/L (21-32) 12/10/22 23:20 Anion Gap 10 (3-11) 12/10/22 23:20 BUN 13 mg/dl (6-23) 12/10/22 23:20 Creatinine 0.75 mg/dl (0.6-1.2) 12/10/22 23:20 Est Cr Clr Drug Dosing 60.9 ml/min 12/10/22 23:20 Est GFR ( Amer) 89.7 ml/min 12/10/22 23:20 Est GFR (Non-Af Amer) 77.4 ml/min 12/10/22 23:20 BUN/Creatinine Ratio 17.3 (10-20) 12/10/22 23:20 Glucose 156 mg/dl (70-99(Fasting)) H 12/10/22 23:20 Calcium 9.3 mg/dl (8.6-10.3) 12/10/22 23:20 Magnesium 1.7 mg/dl (1.7-2.4) 12/10/22 23:20 Total Bilirubin 0.3 mg/dl (0.2-1.0) 12/10/22 23:20 AST 47 U/L (13-39) H 12/10/22 23:20 ALT 34 U/L (7-52) 12/10/22 23:20 Alkaline Phosphatase 125 U/L (34-104) H 12/10/22 23:20 Troponin I High Sens 17.4 pg/ml (0-14) H 12/11/22 02:21 B-Natriuretic Peptide 242 pg/ml (0-100) H 12/11/22 02:21 Total Protein 8.4 gm/dl (6.0-8.3) H 12/10/22 23:20 Albumin 4.4 gm/dl (3.4-5.0) 12/10/22 23:20 Globulin 4.0 gm/dl (2.5-4.0) 12/10/22 23:20 Albumin/Globulin Ratio 1.1 (0.9-2) 12/10/22 23:20 Lipase 79 U/L (11-82) 12/10/22 23:20 TSH 4.566 uIu/ml (0.300-4.500) H 12/10/22 23:20 Free T4 0.91 ng/dl (0.61-1.60) 12/11/22 02:21 Urine Color Yellow 12/11/22 02:00 Urine Appearance Clear (Clear) 12/11/22 02:00 Urine pH 7.0 (4.5-7.5) 12/11/22 02:00 Ur Specific [place] 1.024 (1.000-1.030) 12/11/22 02:00 Urine Protein 1+ (Negative) H 12/11/22 02:00 Urine Glucose (UA) Negative (Negative) 12/11/22 02:00 Urine Ketones Negative (Negative) 12/11/22 02:00 Urine Blood Trace (Negative) H 12/11/22 02:00 Urine Nitrite Negative (Negative) 12/11/22 02:00 Urine Bilirubin Negative (Negative) 12/11/22 02:00 Urine Urobilinogen Negative (Negative) 12/11/22 02:00 Ur Leukocyte Esterase 2+ (Negative) H 12/11/22 02:00 Urine WBC (Auto) 10-30 /hpf (0-5) H 12/11/22 02:00 Urine RBC (Auto) 0-4 /hpf (0-4) 12/11/22 02:00 U Hyaline Cast (Auto) 0 /lpf (0-5) 12/11/22 02:00 U Epithel Cells (Auto) 20-30 /lpf (0-5) H 12/11/22 02:00 Urine Bacteria (Auto) Negative (Negative) 12/11/22 02:00 SARS-CoV-2 (PCR) NEGATIVE (Negative) 12/10/22 23:20 Influenza Type A (PCR) Negative (Neg) 12/10/22 23:20 Influenza Type B (PCR) Negative (Neg) 12/10/22 23:20 RSV (RT-PCR) Negative (Neg) 12/10/22 23:20 Impressions Chest CTA 12/11/22 00:43 Exam(s): CTA CHEST IV Amt: 114 ml optiray 320 EXAM: CT Angiography Chest With Intravenous Contrast CLINICAL HISTORY: Reason for exam: PE, sob, tachy, hypoxia. TECHNIQUE: Axial computed tomographic angiography images of the chest with intravenous contrast. CTDI is 23.76 mGy and DLP is 753.22 mGy-cm. Automated exposure control was utilized for the study. A dose lowering technique was utilized adhering to the principles of ALARA. MIP reconstructed images were created and reviewed. COMPARISON: No relevant prior studies available. FINDINGS: Pulmonary arteries: Unremarkable. No pulmonary embolism. Aorta: No acute findings. No thoracic aortic aneurysm. Lungs: Bibasilar atelectasis. No mass. Pleural space: Moderate right pleural effusion. No pneumothorax. Heart: Unremarkable. No cardiomegaly. No significant pericardial effusion. No evidence of RV dysfunction. Bones/joints: Degenerative change of the thoracolumbar spine. No acute fracture. No dislocation. Soft tissues: Unremarkable. Lymph nodes: Unremarkable. No enlarged lymph nodes. Gallbladder and bile ducts: Status post cholecystectomy. IMPRESSION: Moderate right pleural effusion. No pulmonary embolus or dense parenchymal consolidation. Electronically signed by: Jorge Tinoco MD 12/11/22 01:30 AM Diagnostic Findings EKG as per my interpretation :Rate 115, sinus tachycardia, normal axis, T wave abnormalities lateral leads
[2022-12-11] MEDS ORDERED: PROMETHAZINE HCL 12.5 MG in SODIUM CHLORIDE 0.9% 50 ML IV PRN (05:57)
[2022-12-11] MEDS ORDERED: oxyCODONE HCL IR 5 MG TAB (IMMEDIATE RELEASE) PO PRN (05:57)
[2022-12-11] MEDS ORDERED: guaiFENesin 600 MG TABCR PO STA (06:19)
--- NOTE | 2022-12-11 07:03 | XRay Report ---
XR chest 1V portable CLINICAL HISTORY: SOB wheezing cough TECHNIQUE: Single frontal radiograph of the chest was obtained. Comparison: Comparison is made to chest radiograph 01/27/2022 FINDINGS: No lines and tubes are seen. Cardiomegaly is noted. The lungs are clear. No evidence of pleural effus ion or pneumothorax. IMPRESSION: Cardiomegaly is seen. No consolidations are noted. ACT 112: Negative or not required by law. Electronically signed by: Otilio Broderick M.D. 12/11/2022 7:01 AM
[2022-12-11] MEDS ORDERED: PERFLUTREN LIPID MICROSPHERE (DEFINITY) IV ONE (07:24)
[2022-12-11] MEDS ORDERED: GLUCOSE 10 TAB/TUBE PO PRN (07:59)
[2022-12-11] MEDS ORDERED: GLUCOSE 40% GEL 15 GM TUBE PO PRN (07:59)
[2022-12-11] MEDS ORDERED: ACETAMINOPHEN 325 MG TAB PO PRN (07:59)
[2022-12-11] MEDS ORDERED: CARBOHYDRATES FOR HYPOGLYCEMIA PO PRN (07:59)
[2022-12-11] MEDS ORDERED: DEXTROSE 50% 50 ML SYRINGE IV PRN (07:59)
[2022-12-11] MEDS ORDERED: POLYETHYLENE (MIRALAX) 17 GM PACK PO PRN (07:59)
[2022-12-11] MEDS ORDERED: GLUCAGON FOR INJ 1 MG VIAL SQ PRN (07:59)
[2022-12-11] MEDS: FUROSEMIDE 40 MG/4 ML VIAL IV SCH ×2 (08:23→21:24)
[2022-12-11] MEDS ORDERED: INSULIN ASPART PER UNIT CHARGE SC SCH (08:30)
[2022-12-11] MEDS: LANTUS PER UNIT CHARGE SQ SCH (08:50)
[2022-12-11] MEDS: DONEPEZIL HCL 10 MG TAB PO SCH (08:54)
[2022-12-11] MEDS: MEMANTINE HCL 10 MG TAB PO SCH ×2 (08:54→21:25)
[2022-12-11] MEDS: LOSARTAN POTASSIUM 50 MG TAB PO SCH (08:54)
[2022-12-11] MEDS: FOLIC ACID 1 MG TAB PO SCH (08:54)
[2022-12-11] MEDS: ENOXAPARIN INJ 40 MG/0.4 ML SYR SQ SCH (08:55)
[2022-12-11] MEDS: POTASSIUM CHLORIDE CRTAB 20 MEQ TABCR PO SCH ×2 (08:55→17:07)
[2022-12-11] MEDS ORDERED: PHENYTOIN SODIUM ER 100 MG CAP PO SCH (09:00)
[2022-12-11] MEDS ORDERED: LOSARTAN POTASSIUM 50 MG TAB PO SCH (09:00)
[2022-12-11] MEDS: PANTOprazole 40 MG TAB PO SCH (09:22)
[2022-12-11] MEDS: DOCUSATE SODIUM 100 MG CAP PO SCH ×2 (09:22→21:22)
[2022-12-11] MEDS: amLODIPine BESYLATE 5 MG TAB PO SCH (09:23)
[2022-12-11] MEDS: ASPIRIN 81 MG ECTAB PO SCH (09:23)
[2022-12-11] MEDS: METOPROLOL TARTRATE 25 MG TAB PO SCH ×2 (09:23→21:25)
[2022-12-11] MEDS: LEVOTHYROXINE SODIUM 75 MCG TABLET PO SCH (09:24)
[2022-12-11 09:56] LABS: Hematocrit (blood only) 39.3 % (37.0-47.0); Hemoglobin 11.5 g/dl (12.0-16.0); Mean Corpuscular Hemoglobin 21.6 pg (25.0-34.0); Mean Corpuscular Hgb Conc 29.3 g/dL (32.0-36.0); Mean Corpuscular Volume 73.7 fL (80.0-100.0); RDW Coefficient of Variation 19.1 % (11.5-14.5); Red Blood Count 5.33 M/uL (4.20-5.40); White Blood Count 11.18 K/ul (4.8-10.8)
[2022-12-11 10:08] LABS: Calcium 9.1 mg/dl (8.6-10.3); Creatinine Clr Calc Pharmacy 53.1 ml/min; Est GFR (African American) 76.1 ml/min; Est GFR (Non-African American) 65.6 ml/min; Potassium 4.9 mmol/L (3.5-5.1)
[2022-12-11 10:13] LABS: Basophils # (auto) 0.03 K/uL (0-0.2); Basophils % (auto) 0.3 %; Eosinophils # (auto) 0.02 K/uL (0-0.50); Eosinophils % (auto) 0.2 %; Immature Granulocytes # (auto) 0.09 K/uL (0.01-0.20); Immature Granulocytes % (auto) 0.8 %; Lymphocytes % (auto) 10.7 %; Monocytes % (auto) 3.6 %; Neutrophils # (auto) 9.44 K/uL (1.40-6.50); Neutrophils % (auto) 84.4 %; Ovalocytes 1+; Platelet Estimate Normal (Normal); Polychromasia 1+
[2022-12-11 10:14] LABS: Mean Platelet Volume 10.7 fL (9.4-12.4); Platelet Count 184 K/uL (130-400)
--- NOTE | 2022-12-11 11:37 | Cardiology Consultation ---
Date of Consultation December 11, 2022 Assessment & Plan (1) Acute diastolic heart failure with preserved ejection fraction: (2) Hypertensive urgency: (3) Elevated troponin: (4) URI (upper respiratory infection): Plan 77-year-old female admitted with shortness of breath and wheezing. Chest x-ray and CT evidence of right-sided pleural effusion. Patient clinical status improved with IV diuresis. Markedly hypertensive on admission. Continue IV furosemide 40 mg twice daily. Follow daily weight, fluid balance, GFR, and electrolytes. Add topical nitrates for afterload reduction. Agree with addition of low-dose cardioselective beta-pepe, metoprolol tartrate 12.5 mg twice daily given ongoing wheezing. Losartan titrated to 50 mg daily on admission. Mildly elevated troponin secondary to hypertensive urgency and acute heart failure. Preliminary review of bedside echocardiogram demonstrates left ventricular hypertrophy with preserved LV systolic function. There were no regional wall motion abnormalities or significant valvular pathology. Management of URI and potential UTI as per internal medicine. History of Present Illness Reason for Consultation: CHF Requesting Physician: Dr. Hudson Attending Physician: Umberto Luciano MD History of Present Illness 77-year-old with a history of hypertension, CVA, SVT, peripheral vascular disease, diabetes presented to the emergency department due to sudden onset of dry cough and shortness of breath. Denies chest pain. No nausea, vomiting, or diarrhea. No fever, chills, or sick contacts. Markedly hypertensive in the ER with systolic blood pressure in the 200s. X-ray and CT demonstrating moderate right-sided pleural effusion. Patient treated with diuresis and antihypertensive therapy. Blood pressure remains elevated overnight. ECG with left ventricular hypertrophy and lateral ST-T wave changes. ST changes more pronounced when compared to prior ECG. Minimally elevated high-sensitivity troponin which appears chronic. Patient currently resting comfortably on PCU. No chest pain or shortness of breath. Significant diuresis noted per inspection of Torres bag although output has not been recorded. Overall feeling better since admission. Blood pressure remains elevated. Allergies Allergy/AdvReac Type Severity Reaction Status Date / Time labetalol AdvReac Intermediate nausea/vomi Verified 12/10/22 23:47 ting lisinopril AdvReac Intermediate Dizziness Verified 12/10/22 23:47 Home Medications Medication Instructions Recorded Confirmed Type metformin 500 mg tablet,extended 1,000 mg PO QAM 04/15/19 12/11/22 History release 24 hr pantoprazole 40 mg tablet,delayed 40 mg PO DAILYBB 05/07/21 12/11/22 History release levothyroxine 75 mcg tablet 75 mcg PO DAILYBB 01/24/22 12/11/22 History aspirin 81 mg tablet,delayed 81 mg PO DAILY 03/15/22 12/11/22 History release cholecalciferol (vitamin D3) 25 50 mcg PO QAM 03/15/22 12/11/22 History mcg (1,000 unit) tablet (Vitamin D3) docusate sodium 100 mg capsule 100 mg PO AMHS 03/15/22 12/11/22 History folic acid 1 mg tablet 1 mg PO QAM 03/15/22 12/11/22 History loratadine 10 mg tablet 10 mg PO HS 03/15/22 12/11/22 History losartan 25 mg tablet 25 mg PO DAILY 03/15/22 12/11/22 History memantine 10 mg tablet 10 mg PO AMHS 03/15/22 12/11/22 History amlodipine 5 mg tablet 5 mg PO DAILY 12/10/22 12/10/22 History benzonatate 100 mg capsule 100 mg PO TID PRN Cough 12/10/22 12/10/22 History donepezil 10 mg tablet 10 mg PO QAM 12/10/22 12/10/22 History frqrlwj-GZ-PL-acetamin-GG 6.25 15 ml PO Q4H PRN Cold Symptoms 12/10/22 12/11/22 History mg-5 mg-325 mg/15 mL(nt) oral liquids guaifenesin 600 mg tablet, 600 mg PO Q12H PRN Cough 12/10/22 12/10/22 History extended release 12 hr (Mucinex) lamotrigine 25 mg tablet,extended 25 mg PO DIRECTED 12/10/22 12/11/22 History release 24 hr ondansetron HCl 4 mg tablet 4 mg PO Q8H PRN NAUSEA/VOMITING 12/10/22 12/10/22 History polyethylene glycol 3350 17 17 g PO DAILY PRN Constipation 12/10/22 12/10/22 History gram/dose oral powder (Miralax) rosuvastatin 40 mg tablet 40 mg PO HS 12/10/22 12/10/22 History phenytoin sodium extended 100 mg See Rx Instructions .Route .COMPLEX 12/11/22 12/11/22 History capsule Patient History Medical History Anemia Carotid artery stenosis CKD (chronic kidney disease), stage III Depression Diabetes mellitus, type II Diabetic nephropathy History of CVA (cerebrovascular accident) hx L MCA CVA with RHP 2001 HTN (hypertension) Hyperlipidemia Hypothyroid Overactive bladder Seizure disorder s/p CVA...20 years since last seizure TIA (transient ischemic attack) 2001 - no residual effects - does not follow doctor Surgical History History of appendectomy History of cholecystectomy History of colonoscopy Hx of cataract extraction right eye Family History Father Cancer Brother Myocardial infarction Social History Smoking Status: Never smoker Second Hand Exposure: No; Do You Dip or Chew Tobacco: No; Hx Alcohol Use: No Hx Substance Use: No Preferred Language: Citizen Of [place] Communication Ability: Effective Enforcement Manager Required: No Beliefs That Will Affect Care: None Current Living Situation: Family Current Living Situation Comment: Lives with her son, Bela, and Mildreds brothers How many Children do You have: 3 Other Information That Helps Us Care for You: No Feels Safe at Home: Yes Safety Concerns: Feels Safe At This Time Assistive Devices: Wheelchair Review of Systems Review of Systems: All systems reviewed & are unremarkable except as noted in Subjective Physical Exam Constitutional: well nourished; no acute distress Respiratory: no respiratory distress, no labored breathing and no retractions Auscultation: + diminished lung sounds (Right base), + rales (Right base) and + wheezes Cardiovascular: Rate/Rhythm: regular rate and regular rhythm Heart Sounds: normal S1 and normal S2; no murmur Vessels: radial pulses present; no JVD Extremities: no edema Gastrointestinal (Abdomen): Inspection/Auscultation: normal bowel sounds; abdomen not distended Percussion/Palpation: abdomen soft; abdomen nontender, no guarding and abdomen not rigid Neurologic: CN's II-XI intact bilaterally Results & Data Vital Signs (Past 12 Hours) Vital Signs Temp Pulse Pulse Resp BP BP Pulse Ox 07/13/23 11:31 36.7 C 68 20 159/71 H 98 12/11/22 10:38 12/11/22 07:55 36.5 C 84 20 192/100 H 99 12/11/22 07:15 12/11/22 07:00 85 18 188/106 H 99 12/11/22 06:30 74 19 184/78 H 100 12/11/22 06:00 75 18 183/71 H 99 12/11/22 05:30 83 19 170/86 H 99 12/11/22 05:36 84 170/86 H 12/11/22 05:00 92 H 20 142/69 H 98 12/11/22 04:30 100 H 20 158/83 H 97 12/11/22 04:00 97 H 20 161/74 H 97 12/11/22 05:17 88 12/11/22 03:30 102 H 20 175/113 H 96 12/11/22 03:00 105 H 20 179/94 H 98 12/11/22 02:30 105 H 20 171/78 H 99 12/11/22 02:05 110 H 20 180/101 H 98 12/11/22 01:30 105 H 20 163/72 H 97 12/11/22 01:00 100 H 20 169/78 H 98 12/11/22 00:30 105 H 21 196/91 H 97 12/11/22 00:00 105 H 21 157/80 H 97 12/11/22 00:00 109 H 20 157/80 H 96 12/10/22 23:50 110 H 20 125/69 84 L O2 Del Method O2 Flow Rate 12/11/22 11:31 Nasal Cannula 1.5 12/11/22 10:38 Nasal Cannula 4 12/11/22 07:55 Nasal Cannula 4 12/11/22 07:15 Nasal Cannula 2 12/11/22 07:00 Nasal Cannula 2 12/11/22 06:30 Nasal Cannula 2 12/11/22 06:00 Nasal Cannula 2 12/11/22 05:30 Nasal Cannula 2 12/11/22 05:36 12/11/22 05:00 Nasal Cannula 2 12/11/22 04:30 Room Air 2 12/11/22 04:00 Nasal Cannula 2 12/11/22 05:17 12/11/22 03:30 Nasal Cannula 2 12/11/22 03:00 Nasal Cannula 2 12/11/22 02:30 Nasal Cannula 2 12/11/22 02:05 Nasal Cannula 2 12/11/22 01:30 Nasal Cannula 2 12/11/22 01:00 Nasal Cannula 2 12/11/22 00:30 Nasal Cannula 2 12/11/22 00:00 Nasal Cannula 2 12/11/22 00:00 Nasal Cannula 2 12/10/22 23:50 Room Air Laboratory Results Cardiac Enzymes 12/10/22 12/11/22 12/11/22 Range/Units 23:20 02:21 02:21 AST 47 H (13-39) U/L Troponin I High Sens 20.2 H 17.4 H (0-14) pg/ml B-Natriuretic Peptide 242 H (0-100) pg/ml Coagulation 12/10/22 12/11/22 Range/Units 23:20 02:21 APTT 28.4 (21.0-31.0) Seconds B-Natriuretic Peptide 242 H (0-100) pg/ml CBC 12/10/22 12/11/22 Range/Units 23:20 08:38 WBC 10.96 H 11.18 H (4.8-10.8) K/ul RBC 5.14 5.33 (4.20-5.40) M/uL Hgb 11.2 L 11.5 L (12.0-16.0) g/dl Hct 38.0 39.3 (37.0-47.0) % Plt Count 265 184 (130-400) K/uL Neut # (Auto) 8.05 H 9.44 H (1.40-6.50) K/uL Lymph # (Auto) 1.99 1.20 (1.2-3.4) K/uL [place] # (Auto) 0.58 0.40 (0.11-0.59) K/uL Eos # (Auto) 0.26 0.02 (0-0.50) K/uL Baso # (Auto) 0.05 0.03 (0-0.2) K/uL Comprehensive Metabolic Panel 12/10/22 12/11/22 Range/Units 23:20 08:38 Sodium 135 L 134 L (136-145) mmol/L Potassium 3.7 4.9 D (3.5-5.1) mmol/L Chloride 98 98 (98-107) mmol/L Carbon Dioxide 27 25 (21-32) mmol/L BUN 13 12 (6-23) mg/dl Creatinine 0.75 0.86 (0.6-1.2) mg/dl Glucose 156 H 205 H (70-99(Fasting)) mg/dl Calcium 9.3 9.1 (8.6-10.3) mg/dl AST 47 H (13-39) U/L ALT 34 (7-52) U/L Alkaline Phosphatase 125 H (34-104) U/L Total Protein 8.4 H (6.0-8.3) gm/dl Albumin 4.4 (3.4-5.0) gm/dl Intake and Output 12/10/22 12/11/22 12/11/22 22:59 06:59 14:59 Intake Total 200 / 200 Output Total Balance 200 / 200 -1 Intake: IV 200 / 200 Magnesium Sulfate / D5w 1 gm In 200 / 200 100 ml @ 50 mls/hr IV Q2H [facility] Rx#:[id number] Output: # Bowel Movements Other: Weight 76 kg Weight Measurement Method Built in [facility] (4) URI (upper respiratory infection) URI type: unspecified URI Qualified Code(s): J06.9 - Acute upper respiratory infection, unspecified
[2022-12-11] MEDS: INSULIN ASPART PER UNIT CHARGE SC SCH ×3 (12:18→20:50)
--- NOTE | 2022-12-11 12:21 | Electrocardiogram Report ---
Test Reason : Blood Pressure : / mmHG Vent. Rate : 116 BPM Atrial Rate : 116 BPM P-R Int : 160 ms QRS Dur : 088 ms QT Int : 346 ms P-R-T Axes : 096 061 102 degrees QTc Int : 480 ms Sinus tachycardia Abnormal ECG When compared with ECG of 19-MAR-2022 04:13, MI interval has decreased Confirmed by Kermit Goldstein ([id number]) on 12/11/2022 12:21:04 PM Referred By: REFERRED SELF Confirmed By:Moose Goldstein
[2022-12-11] MEDS: NITROGLYCERIN 2% OINTMENT 30GM TUBE EXT SCH ×3 (12:22→23:17)
[2022-12-11] MEDS ORDERED: BUDESONIDE 0.25 MG/2 ML VIAL (PULMICORT) NEB SCH (12:35)
[2022-12-11] MEDS ORDERED: guaiFENesin 600 MG TABCR PO ONE (12:45)
[2022-12-11] MEDS ORDERED: ALBUT/IPRATROP 3MG/0.5MG NEB 3 ML VIAL NEB SCH (15:00)
[2022-12-11] MEDS ORDERED: ALBUT/IPRATROP 3MG/0.5MG NEB 3 ML VIAL NEB PRN (17:07)
--- NOTE | 2022-12-11 17:08 | Communication Note ---
Date of Service: December 11, 2022 77-year-old female with PMH of HTN, CVA, PSVT, PVD, DM 2 on oral meds, hypothyroidism, chronic anemia [baseline hemoglobin 9-10], dementia, seizure disorder, Enterococcus UTI presented to the ED 12/10 with complaint of acute onset dry cough associated with wheezing and shortness of breath with no chest pain on the day of arrival. Patient reports being compliant with home medications. SBP noted to be in 200s upon EMS arrival, IV Lasix was administered in the ED with improvement of symptoms. She is being managed for the following: Acute diastolic heart failure with preserved ejection fraction Hypertensive urgency Likely cardiac asthma: RSV/flu screen and COVID screen are negative, no h/o asthma/copd per pt and per OP chart review; non smoker. Patient presents with acute onset shortness of breath with concern of fluid retention per patient prior to arrival. BNP elevated at 242 at presentation, echo with EF of 60 to 65%, mild concentric LVH, grade 2 diastolic dysfunction, left ventricular wall motion normal. No regional motion abnormality noted. BP at presentation 254/126mmHg. CXR and CTA chest: Moderate right pleural effusion. No consolidation noted. Cardiology on board, on IV diuresis, topical nitrates, beta-pepe, losartan up titration. Continue telemetry monitoring, blood pressure monitoring. strict I/Os, daily weights, CHF education, fluid restriction for now Mild troponin elevation/likely demand ischemia: In 20s. Flat trend. Likely secondary to acute heart failure/hypertensive urgency. Admitting EKG with sinus tachycardia. Patient with no chest pain. Continue telemetry monitoring. Abn UA: Borderline, follow urine culture. no urinary s/s. Monitor off of antibiotic. Other chronic medical conditions: Continue with/resume home meds as and when able hx CVA, PVD hx PSVT as per records DM2 on oral medications, reasonable control as of recent hemoglobin A1c of 7.1 last October 2022 hypothyroidism, TSH slight elevated chronic anemia, hemoglobin better than baseline dementia, patient mentating well Seizure disorder, stable on regimen (patient recently started outpatient on Lamictal course by [facility] neurologist. Eventual plan to wean down/off Dilantin as per specialist note.). Per pt's family (phone conversation 12/11), she is on day 6 of lamictal as of 12/11 (She was supposed to be on 25 mg lamictal daily for week 1 and 2; then she has escalating doses) and is currently taking phenytoin 300 mg in the night only. I have copied pasted the escalation regimen down here from her OP chart review: With lamotrigine ER 25 mg tablets: Weeks 1 and 2, 25 mg (one 25 mg tablet) daily Weeks 3 and 4, 50 mg (two 25 mg tablets) daily With lamotrigine ER 50 mg tablets: Week 5, 100 mg (two 50 mg tablets) daily Week 6, 150 mg (three 50 mg tablets) daily With lamotrigine ER 200 mg tablets: Week 7, 200 mg (one 200 mg tablet) daily With lamotrigine ER 300 mg tablets: Weeks 8 and after 300 mg (one 300 mg tablet) daily Please pay special attention for any rashes or ulcers/sores on the gums, mouth or genital or anal regions as these can be a sign of a potentially serious side effect. If this occurs please stop the medication and call your doctor. PT OT eval DVT prophylaxis per Lovenox subcu Full code Patient's son Mr. Keith Lemon, contact #[phone]. For further details on the patient, refer to today's H&P note.
[2022-12-11] MEDS ORDERED: FORMOTEROL 20 MCG/2 ML VIAL INH SCH (19:00)
[2022-12-11] MEDS: LORATADINE 10 MG TAB PO SCH (21:25)
[2022-12-11] MEDS: guaiFENesin 600 MG TABCR PO SCH (21:25)
[2022-12-11] MEDS: PHENYTOIN SODIUM ER 100 MG CAP PO SCH (21:26)
[2022-12-11] MEDS: ROSUVASTATIN CALCIUM 20 MG TAB PO SCH (21:27)
[2022-12-12] MEDS: NITROGLYCERIN 2% OINTMENT 30GM TUBE EXT SCH (06:36)
[2022-12-12] MEDS: PANTOprazole 40 MG TAB PO SCH (06:37)
[2022-12-12] MEDS: LEVOTHYROXINE SODIUM 75 MCG TABLET PO SCH (06:37)
[2022-12-12 07:00] LABS: Hematocrit (blood only) 30.3 % (37.0-47.0); Hemoglobin 9.2 g/dl (12.0-16.0); Mean Corpuscular Hemoglobin 21.9 pg (25.0-34.0); Mean Corpuscular Hgb Conc 30.4 g/dL (32.0-36.0); Platelet Count 203 K/uL (130-400); RDW Coefficient of Variation 18.4 % (11.5-14.5); RDW Standard Deviation 47.2 fL (36.4-46.3); Red Blood Count 4.21 M/uL (4.20-5.40); White Blood Count 9.59 K/ul (4.8-10.8)
[2022-12-12 07:12] LABS: BUN Creatinine Ratio 19.2 (10-20); Calcium 8.7 mg/dl (8.6-10.3); Creatinine Clr Calc Pharmacy 32.5 ml/min; Est GFR (African American) 46.2 ml/min; Est GFR (Non-African American) 39.8 ml/min; Magnesium 2.1 mg/dl (1.7-2.4); Phosphorus 3.3 mg/dl (2.5-4.9); Potassium 4.4 mmol/L (3.5-5.1)
[2022-12-12] MEDS: INSULIN ASPART PER UNIT CHARGE SC SCH ×4 (08:16→21:21)
[2022-12-12] MEDS: LANTUS PER UNIT CHARGE SQ SCH (08:17)
[2022-12-12] MEDS: FOLIC ACID 1 MG TAB PO SCH (08:19)
[2022-12-12] MEDS: MEMANTINE HCL 10 MG TAB PO SCH ×2 (08:19→20:21)
[2022-12-12] MEDS: lamoTRIgine 25 MG TAB PO SCH (08:19)
[2022-12-12] MEDS: POTASSIUM CHLORIDE CRTAB 20 MEQ TABCR PO SCH ×2 (08:19→17:12)
[2022-12-12] MEDS: LOSARTAN POTASSIUM 50 MG TAB PO SCH (08:19)
[2022-12-12] MEDS: guaiFENesin 600 MG TABCR PO SCH ×2 (08:19→20:20)
[2022-12-12] MEDS: METOPROLOL TARTRATE 25 MG TAB PO SCH ×2 (08:20→20:22)
[2022-12-12] MEDS: amLODIPine BESYLATE 5 MG TAB PO SCH (08:20)
[2022-12-12] MEDS: DONEPEZIL HCL 10 MG TAB PO SCH (08:20)
[2022-12-12] MEDS: ASPIRIN 81 MG ECTAB PO SCH (08:20)
[2022-12-12] MEDS: ENOXAPARIN INJ 40 MG/0.4 ML SYR SQ SCH (08:21)
[2022-12-12] MEDS: DOCUSATE SODIUM 100 MG CAP PO SCH ×2 (08:29→20:25)
--- NOTE | 2022-12-12 11:59 | Cardiology Progress Note ---
Date of Service December 12, 2022 Assessment & Plan (1) Acute diastolic heart failure with preserved ejection fraction: (2) Hypertensive urgency: (3) Elevated troponin: Plan 77-year-old female admitted with shortness of breath and wheezing. Chest x-ray and CT evidence of right-sided pleural effusion. Patient clinical status improved with IV diuresis. Markedly hypertensive on admission. Discontinue topical nitrates. Titrate metoprolol to 25 mg twice daily. Continue losartan, and amlodipine. Follow daily weight, fluid balance, GFR, and electrolytes. Creatinine trending upward after IV diuretic therapy. Recommend hold IV Lasix currently. Consider addition of oral furosemide in a.m. pending review of labs. Mildly elevated troponin secondary to hypertensive urgency and acute heart failure. Echocardiogram demonstrates preserved LV systolic function with left ventricular hypertrophy. Admission and Anticipated Discharge Date Admission Date: December 11, 2022 Subjective Patient seen and examined at the bedside. Reports feeling nauseated this AM. No chest pain or shortness of breath. Lying supine without dyspnea. No lower extremity edema fluid balance -1878 cc. Blood pressure improved. Telemetry reveals sinus rhythm in the 80s. Review of Systems Review of Systems: All systems reviewed & are unremarkable except as noted in Subjective Physical Exam Constitutional: well nourished; no acute distress Respiratory: no respiratory distress, no labored breathing and no retractions Auscultation: + diminished lung sounds (Right base), + rales (Right base) and + wheezes Cardiovascular: Rate/Rhythm: regular rate and regular rhythm Heart Sounds: normal S1 and normal S2; no murmur Vessels: radial pulses present; no JVD Extremities: no edema Gastrointestinal (Abdomen): Inspection/Auscultation: normal bowel sounds; abdomen not distended Percussion/Palpation: abdomen soft; abdomen nontender, no guarding and abdomen not rigid Neurologic: CN's II-XI intact bilaterally Results & Data Vital Signs (Past 12 Hours) Vital Signs Temp Pulse Resp BP BP Pulse Ox O2 Del Method 12/12/22 11:52 36.3 C L 71 18 139/78 99 Nasal Cannula 12/12/22 08:00 Nasal Cannula 12/12/22 07:42 36.6 C 84 18 138/75 95 Nasal Cannula 12/12/22 06:35 88 167/82 H 12/12/22 03:53 36.7 C 84 24 140/69 95 Nasal Cannula O2 Flow Rate 12/12/22 11:52 2 12/12/22 08:00 2 12/12/22 07:42 2 12/12/22 06:35 12/12/22 03:53 2 Laboratory Results CBC 12/12/22 Range/Units 05:57 WBC 9.59 (4.8-10.8) K/ul RBC 4.21 (4.20-5.40) M/uL Hgb 9.2 L (12.0-16.0) g/dl Hct 30.3 L (37.0-47.0) % Plt Count 203 (130-400) K/uL Comprehensive Metabolic Panel 12/12/22 Range/Units 05:57 Sodium 131 L (136-145) mmol/L Potassium 4.4 (3.5-5.1) mmol/L Chloride 96 L (98-107) mmol/L Carbon Dioxide 27 (21-32) mmol/L BUN 25 H (6-23) mg/dl Creatinine 1.30 H D (0.6-1.2) mg/dl Glucose 143 H (70-99(Fasting)) mg/dl Calcium 8.7 (8.6-10.3) mg/dl Intake and Output 12/11/22 12/12/22 12/12/22 22:59 06:59 14:59 Intake Total 550 / 550 Output Total 652 / 2428 1400 / 2428 Balance -652 / -1878 -850 / -1878 Intake: Oral 550 / 550 Output: Urine Amount (Catheter) 650 / 2425 1400 / 2425 Torres/Indwelling 650 / 2425 1400 / 2425 # Bowel Movements 2 / 3 Other: Weight 64.8 kg Weight Measurement Method Built in [facility]
--- NOTE | 2022-12-12 16:47 | Hospitalist Progress Note ---
Date of Service December 12, 2022 Assessment & Plan (1) Acute diastolic heart failure with preserved ejection fraction: Plan 77-year-old female with PMH of HTN, CVA, PSVT, PVD, DM 2 on oral meds, hypothyroidism, chronic anemia [baseline hemoglobin 9-10], dementia, seizure disorder, Enterococcus UTI presented to the ED 12/10 with complaint of acute onset dry cough associated with wheezing and shortness of breath with no chest pain on the day of arrival. Patient reports being compliant with home medications. SBP noted to be in 200s upon EMS arrival, IV Lasix was administered in the ED with improvement of symptoms. She is being managed for the following: Acute diastolic heart failure with preserved ejection fraction Hypertensive urgency Likely cardiac asthma:RSV/flu screen and COVID screen are negative, no h/o asthma/copd per pt and per OP chart review; non smoker. Patient presents with acute onset shortness of breath with concern of fluid retention per patient prior to arrival. BNP elevated at 242 at presentation, echo with EF of 60 to 65%, mild concentric LVH, grade 2 diastolic dysfunction, left ventricular wall motion normal. No regional motion abnormality noted. BP at presentation 254/126mmHg. CXR and CTA chest: Moderate right pleural effusion. No consolidation noted. 12/11 ECHO: EF 60-65%, mild concentric LVH, Gr II diastolic dysfunction. Cardiology on board, topical nitrates DC'd, beta-pepe, losartan. Hold diuresis, Cr slightly uptrended. BMP in AM Continue telemetry monitoring, blood pressure monitoring. BP getting better. strict I/Os, daily weights, CHF education, fluid restriction for now. Pt improving clinically w/ improving sob, improving wheezing. Mild troponin elevation/likely demand ischemia:In 20s. Flat trend. Likely secondary to acute heart failure/hypertensive urgency. Admitting EKG with sinus tachycardia. Patient with no chest pain. Continue telemetry monitoring. Abn UA:Borderline, follow urine culture. no urinary s/s. Monitor off of antibi otic. Other chronic medical conditions:Continue with/resume home meds as and when able hx CVA, PVD hx PSVT as per records DM2 on oral medications, reasonable control as of recent hemoglobin A1c of 7.1 last October 2022 hypothyroidism, TSH slight elevated chronic anemia, hemoglobin better than baseline dementia, patient mentating well Seizure disorder, stable on regimen (patient recently started outpatient on Lamictal course by [facility] neurologist. Eventual plan to wean down/off Dilantin as per specialist note.). Per pt's family (phone conversation 12/11), she is on day 6 of lamictal as of 12/11 (She was supposed to be on 25 mg lamictal daily for week 1 and 2; then she has escalating doses) and is currently taking phenytoin 300 mg in the night only. I have copied pasted the escalation regimen down here from her OP chart review: With lamotrigine ER 25 mg tablets: Weeks 1 and 2, 25 mg (one 25 mg tablet) daily Weeks 3 and 4, 50 mg (two 25 mg tablets) daily With lamotrigine ER 50 mg tablets: Week 5, 100 mg (two 50 mg tablets) daily Week 6, 150 mg (three 50 mg tablets) daily With lamotrigine ER 200 mg tablets: Week 7, 200 mg (one 200 mg tablet) daily With lamotrigine ER 300 mg tablets: Weeks 8 and after 300 mg (one 300 mg tablet) daily Please pay special attention for any rashes or ulcers/sores on the gums, mouth or genital or anal regions as these can be a sign of a potentially serious side effect. If this occurs please stop the medication and call your doctor. PT OT eval DVT prophylaxis per Lovenox subcu Full code Patient's son Mr. Keith Lemon, contact #[phone]. Admission and Anticipated Discharge Date Admission Date: December 11, 2022 Subjective Patient seen and examined at bedside as a follow-up of acute diastolic heart failure with preserved ejection fraction, hypertensive urgency and likely demand ischemia. Patient was lying in bed, on 2 L oxygen via nasal cannula, NAD, per RN no new acute event overnight/patient eating okay and moving bowels okay. Patient with improving shortness of breath. No to minimal wheezing on exam today. Denies any fever or chills. Physical Exam Physical Exam: GENERAL: Alert and oriented x3. NAD, on 2l nc o2 HEENT: No pallor, no icterus. Pupils equal, round and reactive to light. Oral mucosa moist. NECK: No JVD, no neck masses. HEART: S1 and S2 heard. Regular rate and rhythm. No murmur, no gallop. RESPIRATORY SYSTEM: Normal AP diameter. No accessory muscle use. occasional rhonci bb, no crackles. decreased BS RLL ABDOMEN: Soft, bowel sounds present, nontender, no distention. CENTRAL NERVOUS SYSTEM: No facial droop. Speech is clear. Obeys simple commands. Moves extremities. EXTREMITIES: trace edema, no erythema seen. Results & Data Results & Data Vital Signs (Past 12 Hours) Vital Signs Temp Pulse Resp BP BP Pulse Ox O2 Del Method 12/12/22 16:01 36.7 C 72 18 143/81 H 98 Nasal Cannula 12/12/22 11:52 36.3 C L 71 18 139/78 99 Nasal Cannula 12/12/22 08:00 Nasal Cannula 12/12/22 07:42 36.6 C 84 18 138/75 95 Nasal Cannula 12/12/22 06:35 88 167/82 H O2 Flow Rate 12/12/22 16:01 2.0 12/12/22 11:52 2 12/12/22 08:00 2 12/12/22 07:42 2 12/12/22 06:35
[2022-12-12] MEDS: NITROGLYCERIN SL 0.4 MG/TAB TAB SL PRN ×2 (19:54→19:59)
[2022-12-12] MEDS ORDERED: ALBUMIN 25% 25 GM/100 ML VIAL IV ONE (20:07)
[2022-12-12] MEDS ORDERED: oxyCODONE HCL IR 5 MG TAB (IMMEDIATE RELEASE) PO STA (20:07)
[2022-12-12] MEDS: PHENYTOIN SODIUM ER 100 MG CAP PO SCH (20:20)
[2022-12-12] MEDS: LORATADINE 10 MG TAB PO SCH (20:21)
[2022-12-12] MEDS: ROSUVASTATIN CALCIUM 20 MG TAB PO SCH (20:22)
[2022-12-12 21:02] LABS: BUN Creatinine Ratio 25.7 (10-20); Calcium 9.1 mg/dl (8.6-10.3); Creatinine Clr Calc Pharmacy 37.4 ml/min; Est GFR (African American) 54.7 ml/min; Est GFR (Non-African American) 47.2 ml/min; Potassium 4.9 mmol/L (3.5-5.1)
[2022-12-12 21:12] LABS: Troponin I High Sensitivity 14.6 pg/ml (0-14)
[2022-12-12 21:27] LABS: D Dimer 370 ug/L FEU (0-500); Partial Thromboplastin Ratio 1.1; Partial Thromboplastin Time 29.9 Seconds (21.0-31.0)
[2022-12-12 22:08] LABS: Albumin Level 3.6 gm/dl (3.4-5.0); Bilirubin,Total 0.2 mg/dl (0.2-1.0); Total Protein 6.9 gm/dl (6.0-8.3)
[2022-12-13] MEDS: LEVOTHYROXINE SODIUM 75 MCG TABLET PO SCH (05:53)
[2022-12-13] MEDS: PANTOprazole 40 MG TAB PO SCH (05:53)
[2022-12-13 07:09] LABS: Hematocrit (blood only) 31.6 % (37.0-47.0); Hemoglobin 9.6 g/dl (12.0-16.0); Mean Corpuscular Hemoglobin 21.8 pg (25.0-34.0); Mean Corpuscular Hgb Conc 30.4 g/dL (32.0-36.0); Mean Corpuscular Volume 71.8 fL (80.0-100.0); Mean Platelet Volume 10.4 fL (9.4-12.4); Platelet Count 200 K/uL (130-400); RDW Coefficient of Variation 18.6 % (11.5-14.5); RDW Standard Deviation 47.5 fL (36.4-46.3); White Blood Count 7.48 K/ul (4.8-10.8)
[2022-12-13 07:21] LABS: BUN Creatinine Ratio 26.6 (10-20); Est GFR (African American) 68.3 ml/min; Est GFR (Non-African American) 58.9 ml/min; Magnesium 2.2 mg/dl (1.7-2.4); Phosphorus 3.9 mg/dl (2.5-4.9); Potassium 4.7 mmol/L (3.5-5.1)
[2022-12-13] MEDS: METOPROLOL TARTRATE 25 MG TAB PO SCH (08:24)
[2022-12-13] MEDS: MEMANTINE HCL 10 MG TAB PO SCH ×2 (08:24→20:39)
[2022-12-13] MEDS: LOSARTAN POTASSIUM 50 MG TAB PO SCH (08:24)
[2022-12-13] MEDS: lamoTRIgine 25 MG TAB PO SCH (08:24)
[2022-12-13] MEDS: ASPIRIN 81 MG ECTAB PO SCH (08:24)
[2022-12-13] MEDS: FOLIC ACID 1 MG TAB PO SCH (08:24)
[2022-12-13] MEDS: guaiFENesin 600 MG TABCR PO SCH ×2 (08:24→20:38)
[2022-12-13] MEDS: DONEPEZIL HCL 10 MG TAB PO SCH (08:24)
[2022-12-13] MEDS: amLODIPine BESYLATE 5 MG TAB PO SCH (08:25)
[2022-12-13] MEDS: ENOXAPARIN INJ 40 MG/0.4 ML SYR SQ SCH (08:26)
[2022-12-13] MEDS: INSULIN ASPART PER UNIT CHARGE SC SCH ×4 (08:26→20:41)
[2022-12-13] MEDS: LANTUS PER UNIT CHARGE SQ SCH (08:26)
[2022-12-13] MEDS: DOCUSATE SODIUM 100 MG CAP PO SCH ×2 (08:28→20:41)
[2022-12-13] MEDS: POTASSIUM CHLORIDE CRTAB 20 MEQ TABCR PO SCH ×2 (08:28→16:50)
--- NOTE | 2022-12-13 12:23 | Cardiology Progress Note ---
Date of Service December 13, 2022 Assessment & Plan (1) Acute diastolic heart failure with preserved ejection fraction: (2) Hypertensive urgency: (3) Elevated troponin: Plan 77-year-old female admitted with shortness of breath and wheezing. Chest x-ray and CT evidence of right-sided pleural effusion. Patient clinical status improved with IV diuresis. Markedly hypertensive on admission. Discontinue topical nitrates. Titrate metoprolol to 25 mg twice daily. Continue losartan, and amlodipine. Follow daily weight, fluid balance, GFR, and electrolytes. Creatinine trending upward after IV diuretic therapy. Recommend hold IV Lasix currently. Consider addition of oral furosemide in a.m. pending review of labs. Mildly elevated troponin secondary to hypertensive urgency and acute heart failure. Echocardiogram demonstrates preserved LV systolic function with left ventricular hypertrophy. 12/13/2022 Patient clinically improved after adjustments in therapies as above. Physical examination not significant with profound volume overload. Blood pressure now controlled Plan: Transition metoprolol to tartrate to metoprolol succinate for guideline directed heart failure beta-pepe Begin low-dose diuretic for diastolic heart failure and blood pressure control furosemide 20 mg p.o. daily Microcytic anemia present iron studies will be ordered Admission and Anticipated Discharge Date Admission Date: December 11, 2022 Subjective Patient seen and examined, chart, medications, telemetry reviewed Patient without acute complaints this morning no dizziness or shortness of breath. No chest pains, tachypalpitations, orthopnea. Blood pressure trending towards control No arrhythmias on telemetry Review of Systems Review of Systems: All systems reviewed & are unremarkable except as noted in Subjective Physical Exam Constitutional: well nourished; no acute distress Eyes: PERRL, conjunctivae normal, anicteric sclerae Respiratory: normal respiratory effort, lungs clear to auscultation Auscultation: + diminished lung sounds (Right base) Cardiovascular: Rate/Rhythm: regular rate and regular rhythm Heart Sounds: normal S1 and normal S2; no murmur Vessels: radial pulses present; no JVD Extremities: no edema Gastrointestinal (Abdomen): Inspection/Auscultation: normal bowel sounds; abdomen not distended Percussion/Palpation: abdomen soft; abdomen nontender, no guarding and abdomen not rigid Neurologic: CN's II-XI intact bilaterally Results & Data Vital Signs (Past 12 Hours) Vital Signs Temp Pulse Resp BP BP Pulse Ox O2 Del Method 12/13/22 11:30 36.4 C L 59 L 17 131/73 100 Nasal Cannula 12/13/22 08:00 Nasal Cannula 12/13/22 07:23 36.4 C L 70 19 117/59 L 99 Nasal Cannula 12/13/22 03:28 36.7 C 91 H 20 144/79 H 96 Nasal Cannula O2 Flow Rate 12/13/22 11:30 2 12/13/22 08:00 2 12/13/22 07:23 2 12/13/22 03:28 2 Laboratory Results Laboratory Results - last 24 hr 12/11/22 12/12/22 12/12/22 08:38 16:26 20:12 WBC RBC Hgb Hct MCV MCH MCHC RDW Std Deviation RDW Coeff of Maurice Plt Count MPV APTT 29.9 PTT Ratio 1.1 D-Dimer 370 Sodium Potassium Chloride Carbon Dioxide Anion Gap BUN Creatinine Est Cr Clr Drug Dosing Est GFR ( Amer) Est GFR (Non-Af Amer) BUN/Creatinine Ratio Glucose POC Glucose 98 Calcium Phosphorus Magnesium Total Bilirubin Direct Bilirubin AST ALT Alkaline Phosphatase Troponin I High Sens Total Protein Albumin Lipase Hepatitis C Ab (EIA) NON-REACTIVE 12/12/22 12/12/22 12/12/22 20:12 20:31 22:46 WBC RBC Hgb Hct MCV MCH MCHC RDW Std Deviation RDW Coeff of Maurice Plt Count MPV APTT PTT Ratio D-Dimer Sodium 132 L Potassium 4.9 Chloride 99 Carbon Dioxide 24 Anion Gap 9 BUN 29 H Creatinine 1.13 Est Cr Clr Drug Dosing 37.4 Est GFR ( Amer) 54.7 Est GFR (Non-Af Amer) 47.2 BUN/Creatinine Ratio 25.7 H Glucose 133 H POC Glucose 138 H Calcium 9.1 Phosphorus Magnesium Total Bilirubin 0.2 Direct Bilirubin 0.0 AST 15 ALT 16 Alkaline Phosphatase 89 Troponin I High Sens 14.6 H 15.6 H Total Protein 6.9 Albumin 3.6 Lipase 89 H Hepatitis C Ab (EIA) 12/13/22 12/13/22 12/13/22 05:31 05:31 05:31 WBC 7.48 RBC 4.40 Hgb 9.6 L Hct 31.6 L MCV 71.8 L MCH 21.8 L MCHC 30.4 L RDW Std Deviation 47.5 H RDW Coeff of Maurice 18.6 H Plt Count 200 MPV 10.4 APTT PTT Ratio D-Dimer Sodium 133 L Potassium 4.7 Chloride 100 Carbon Dioxide 27 Anion Gap 6 BUN 25 H Creatinine 0.94 Est Cr Clr Drug Dosing 45.0 Est GFR ( Amer) 68.3 Est GFR (Non-Af Amer) 58.9 BUN/Creatinine Ratio 26.6 H Glucose 131 H POC Glucose Calcium 9.0 Phosphorus 3.9 Magnesium 2.2 Total Bilirubin Direct Bilirubin AST ALT Alkaline Phosphatase Troponin I High Sens 13.5 Total Protein Albumin Lipase Hepatitis C Ab (EIA) 12/13/22 12/13/22 07:19 11:29 WBC RBC Hgb Hct MCV MCH MCHC RDW Std Deviation RDW Coeff of Maurice Plt Count MPV APTT PTT Ratio D-Dimer Sodium Potassium Chloride Carbon Dioxide Anion Gap BUN Creatinine Est Cr Clr Drug Dosing Est GFR ( Amer) Est GFR (Non-Af Amer) BUN/Creatinine Ratio Glucose POC Glucose 144 H 129 H Calcium Phosphorus Magnesium Total Bilirubin Direct Bilirubin AST ALT Alkaline Phosphatase Troponin I High Sens Total Protein Albumin Lipase Hepatitis C Ab (EIA)
--- NOTE | 2022-12-13 14:11 | Electrocardiogram Report ---
Test Reason : Blood Pressure : / mmHG Vent. Rate : 078 BPM Atrial Rate : 078 BPM P-R Int : 172 ms QRS Dur : 088 ms QT Int : 392 ms P-R-T Axes : 076 025 079 degrees QTc Int : 446 ms Normal sinus rhythm Nonspecific ST abnormality Abnormal ECG When compared with ECG of 10-DEC-2022 23:12, Vent. rate has decreased BY [address] no longer depressed in Inferior leads ST no longer depressed in Anterolateral leads T wave inversion less evident in Lateral leads Confirmed by Vladislav Chaudhary ([id number]) on 12/13/2022 2:10:45 PM Referred By: REFERRED SELF Confirmed By:Vladislav Chaudhary
[2022-12-13 14:26] LABS: Ferritin 14.1 ng/ml (8-388)
--- NOTE | 2022-12-13 17:19 | Hospitalist Progress Note ---
Date of Service December 13, 2022 Assessment & Plan (1) Acute diastolic heart failure with preserved ejection fraction: Plan 77-year-old female with PMH of HTN, CVA, PSVT, PVD, DM 2 on oral meds, hypothyroidism, chronic anemia [baseline hemoglobin 9-10], dementia, seizure disorder, Enterococcus UTI presented to the ED 12/10 with complaint of acute onset dry cough associated with wheezing and shortness of breath with no chest pain on the day of arrival. Patient reports being compliant with home medications. SBP noted to be in 200s upon EMS arrival, IV Lasix was administered in the ED with improvement of symptoms. She is being managed for the following: Acute diastolic heart failure with preserved ejection fraction Hypertensive urgency Likely cardiac asthma:RSV/flu screen and COVID screen are negative, no h/o asthma/copd per pt and per OP chart review; non smoker. Patient presents with acute onset shortness of breath with concern of fluid retention per patient prior to arrival. BNP elevated at 242 at presentation, echo with EF of 60 to 65%, mild concentric LVH, grade 2 diastolic dysfunction, left ventricular wall motion normal. No regional motion abnormality noted. BP at presentation 254/126mmHg. CXR and CTA chest: Moderate right pleural effusion. No consolidation noted. 12/11 ECHO: EF 60-65%, mild concentric LVH, Gr II diastolic dysfunction. Cardiology on board, beta-pepe, losartan. on lasix, Cr slightly normalized today. BMP in AM Continue telemetry monitoring, blood pressure monitoring. BP better. strict I/Os, daily weights, CHF education, fluid restriction for now. Pt improving clinically w/ improving sob, improving wheezing. Mild troponin elevation/likely demand ischemia:In 20s. Flat trend. Likely secondary to acute heart failure/hypertensive urgency. Admitting EKG with sinus tachycardia. Patient with no chest pain. Continue telemetry monitoring. Abn UA:Borderline, follow urine culture. no urinary s/s. Monitor off of antibiotic. Other chronic medical conditions:Continue with/resume home meds as and when able hx CVA, PVD hx PSVT as per records DM2 on oral medications, reasonable control as of recent hemoglobin A1c of 7.1 last October 2022 hypothyroidism, TSH slight elevated chronic anemia, hemoglobin better than baseline dementia, patient mentating well Seizure disorder, stable on regimen (patient recently started outpatient on Lamictal course by [facility] neurologist. Eventual plan to wean down/off Dilantin as per specialist note.). Per pt's family (phone conversation 12/11), she is on day 6 of lamictal as of 12/11 (She was supposed to be on 25 mg lamictal daily for week 1 and 2; then she has escalating doses) and is currently taking phenytoin 300 mg in the night only. I have copied pasted the escalation regimen down here from her OP chart review: With lamotrigine ER 25 mg tablets: Weeks 1 and 2, 25 mg (one 25 mg tablet) daily Weeks 3 and 4, 50 mg (two 25 mg tablets) daily With lamotrigine ER 50 mg tablets: Week 5, 100 mg (two 50 mg tablets) daily Week 6, 150 mg (three 50 mg tablets) daily With lamotrigine ER 200 mg tablets: Week 7, 200 mg (one 200 mg tablet) daily With lamotrigine ER 300 mg tablets: Weeks 8 and after 300 mg (one 300 mg tablet) daily Please pay special attention for any rashes or ulcers/sores on the gums, mouth or genital or anal regions as these can be a sign of a potentially serious side effect. If this occurs please stop the medication and call your doctor. PT OT eval DVT prophylaxis per Lovenox subcu Full code Patient's son Mr. Keith Lemon, contact #[phone]. Admission and Anticipated Discharge Date Admission Date: December 11, 2022 Subjective Patient seen and examined at bedside as a follow-up of acute diastolic heart failure with preserved ejection fraction, hypertensive urgency and likely demand ischemia. Patient was lying in bed, on 2 L oxygen via nasal cannula, NAD, per RN desats during sleep, will get nocturnal pulse ox today. Patient with improving shortness of breath. No to minimal wheezing on exam today. Denies any fever or chills. Physical Exam Physical Exam: GENERAL: Alert and oriented x3. NAD, on 2l nc o2 HEENT: No pallor, no icterus. Pupils equal, round and reactive to light. Oral mucosa moist. NECK: No JVD, no neck masses. HEART: S1 and S2 heard. Regular rate and rhythm. No murmur, no gallop. RESPIRATORY SYSTEM: Normal AP diameter. No accessory muscle use. occasional rhonci bb, no crackles. decreased BS RLL ABDOMEN: Soft, bowel sounds present, nontender, no distention. CENTRAL NERVOUS SYSTEM: No facial droop. Speech is clear. Obeys simple commands. Moves extremities. EXTREMITIES: trace edema, no erythema seen. Results & Data Results & Data Vital Signs (Past 12 Hours) Vital Signs Temp Pulse Resp BP Pulse Ox Pulse Ox O2 Del Method 12/13/22 16:00 96 12/13/22 16:13 36.7 C 66 18 138/74 99 Nasal Cannula 12/13/22 11:30 36.4 C L 59 L 17 131/73 100 Nasal Cannula 12/13/22 08:00 Nasal Cannula 12/13/22 07:23 36.4 C L 70 19 117/59 L 99 Nasal Cannula O2 Del Method O2 Flow Rate O2 Flow Rate 12/13/22 16:00 Nasal Cannula 2 12/13/22 16:13 2 12/13/22 11:30 2 12/13/22 08:00 2 12/13/22 07:23 2
[2022-12-13] MEDS: PHENYTOIN SODIUM ER 100 MG CAP PO SCH (20:39)
[2022-12-13] MEDS: METOPROLOL SUCC 25MG EXT REL TAB PO SCH (20:39)
[2022-12-13] MEDS: ROSUVASTATIN CALCIUM 20 MG TAB PO SCH (20:39)
[2022-12-13] MEDS: LORATADINE 10 MG TAB PO SCH (20:39)
[2022-12-14 07:13] LABS: Hematocrit (blood only) 33.3 % (37.0-47.0); Hemoglobin 9.9 g/dl (12.0-16.0); Mean Corpuscular Hemoglobin 21.9 pg (25.0-34.0); Mean Corpuscular Hgb Conc 29.7 g/dL (32.0-36.0); Mean Corpuscular Volume 73.5 fL (80.0-100.0); Platelet Count 213 K/uL (130-400); RDW Coefficient of Variation 18.6 % (11.5-14.5); RDW Standard Deviation 48.5 fL (36.4-46.3); Red Blood Count 4.53 M/uL (4.20-5.40); White Blood Count 7.15 K/ul (4.8-10.8)
[2022-12-14 07:36] LABS: BUN Creatinine Ratio 30.5 (10-20); Calcium 9.1 mg/dl (8.6-10.3); Creatinine Clr Calc Pharmacy 44.5 ml/min; Est GFR (African American) 67.4 ml/min; Est GFR (Non-African American) 58.2 ml/min; Potassium 4.9 mmol/L (3.5-5.1)
[2022-12-14] MEDS: ENOXAPARIN INJ 40 MG/0.4 ML SYR SQ SCH (07:54)
[2022-12-14] MEDS: ASPIRIN 81 MG ECTAB PO SCH (07:55)
[2022-12-14] MEDS: guaiFENesin 600 MG TABCR PO SCH ×2 (07:55→20:05)
[2022-12-14] MEDS: LOSARTAN POTASSIUM 50 MG TAB PO SCH (07:55)
[2022-12-14] MEDS: FOLIC ACID 1 MG TAB PO SCH (07:55)
[2022-12-14] MEDS: FUROSEMIDE 20 MG TAB PO SCH (07:55)
[2022-12-14] MEDS: lamoTRIgine 25 MG TAB PO SCH (07:55)
[2022-12-14] MEDS: METOPROLOL SUCC 25MG EXT REL TAB PO SCH ×2 (07:56→20:05)
[2022-12-14] MEDS: amLODIPine BESYLATE 5 MG TAB PO SCH (07:56)
[2022-12-14] MEDS: DONEPEZIL HCL 10 MG TAB PO SCH (07:56)
[2022-12-14] MEDS: MEMANTINE HCL 10 MG TAB PO SCH ×2 (07:56→20:06)
[2022-12-14] MEDS: FERROUS GLUCONATE 324 MG TAB PO SCH (07:56)
[2022-12-14] MEDS: LANTUS PER UNIT CHARGE SQ SCH (08:06)
[2022-12-14] MEDS: INSULIN ASPART PER UNIT CHARGE SC SCH ×4 (08:06→20:13)
[2022-12-14] MEDS: POTASSIUM CHLORIDE CRTAB 20 MEQ TABCR PO SCH (08:07)
[2022-12-14] MEDS: DOCUSATE SODIUM 100 MG CAP PO SCH ×2 (08:07→20:05)
[2022-12-14] MEDS: PANTOprazole 40 MG TAB PO SCH (11:10)
[2022-12-14] MEDS: LEVOTHYROXINE SODIUM 75 MCG TABLET PO SCH (11:10)
--- NOTE | 2022-12-14 12:59 | Cardiology Progress Note ---
Date of Service December 14, 2022 Assessment & Plan (1) Acute diastolic heart failure with preserved ejection fraction: (2) Hypertensive urgency: (3) Elevated troponin: Plan 77-year-old female admitted with shortness of breath and wheezing. Chest x-ray and CT evidence of right-sided pleural effusion. Patient clinical status improved with IV diuresis. Markedly hypertensive on admission. Discontinue topical nitrates. Titrate metoprolol to 25 mg twice daily. Continue losartan, and amlodipine. Follow daily weight, fluid balance, GFR, and electrolytes. Creatinine trending upward after IV diuretic therapy. Recommend hold IV Lasix currently. Consider addition of oral furosemide in a.m. pending review of labs. Mildly elevated troponin secondary to hypertensive urgency and acute heart failure. Echocardiogram demonstrates preserved LV systolic function with left ventricular hypertrophy. 12/13/2022 Patient clinically improved after adjustments in therapies as above. Physical examination not significant with profound volume overload. Blood pressure now controlled Plan: Transition metoprolol to tartrate to metoprolol succinate for guideline directed heart failure beta-pepe Begin low-dose diuretic for diastolic heart failure and blood pressure control furosemide 20 mg p.o. daily Microcytic anemia present iron studies will be ordered 12/14/2022 Impression: Acute diastolic heart failure secondary to hypertensive urgency. Clinically improved though blood pressure still elevated Will increase losartan to 50 mg twice per day Furosemide begun today at 20 mg p.o. daily We will discontinue potassium supplement Likely add spironolactone in a.m. or at discharge Iron studies low would recommend supplementation, investigation of possible bleeding source Admission and Anticipated Discharge Date Admission Date: December 11, 2022 Subjective Patient seen and examined, chart, medications, telemetry reviewed. No acute complaints this morning. Blood pressure still labile. Nocturnal oximetry noted with nocturnal desaturations observed Denies any chest pain or shortness of breath No edema Review of Systems Review of Systems: All systems reviewed & are unremarkable except as noted in Subjective Physical Exam Constitutional: well nourished; no acute distress Eyes: PERRL, conjunctivae normal, anicteric sclerae Respiratory: normal respiratory effort, lungs clear to auscultation no respiratory distress, no labored breathing and no retractions Auscultation: + diminished lung sounds (Right base), + rales (Right base) and + wheezes Cardiovascular: Rate/Rhythm: regular rate and regular rhythm Heart Sounds: normal S1 and normal S2; no murmur Vessels: radial pulses present; no JVD Extremities: no edema Gastrointestinal (Abdomen): Inspection/Auscultation: normal bowel sounds; abdomen not distended Percussion/Palpation: abdomen soft; abdomen nontender, no guarding and abdomen not rigid Neurologic: CN's II-XI intact bilaterally Results & Data Vital Signs (Past 12 Hours) Vital Signs Temp Pulse Resp BP BP Pulse Ox Pulse Ox 12/14/22 11:15 36.3 C L 69 19 149/74 H 95 12/14/22 10:00 146/72 H 12/14/22 08:00 12/14/22 08:00 96 12/14/22 07:18 36.6 C 66 19 180/89 H 96 12/14/22 03:07 71 97 12/14/22 03:18 36.5 C 64 16 139/81 94 12/14/22 01:52 66 94 O2 Del Method O2 Del Method 12/14/22 11:15 Room Air 12/14/22 10:00 12/14/22 08:00 Room Air 12/14/22 08:00 Room Air 12/14/22 07:18 Room Air 12/14/22 03:07 Room Air 12/14/22 03:18 Room Air 12/14/22 01:52 Room Air Laboratory Results Laboratory Results - last 24 hr 12/13/22 12/13/22 12/13/22 12:55 16:10 20:10 WBC RBC Hgb Hct MCV MCH MCHC RDW Std Deviation RDW Coeff of Maurice Plt Count MPV Sodium Potassium Chloride Carbon Dioxide Anion Gap BUN Creatinine Est Cr Clr Drug Dosing Est GFR ( Amer) Est GFR (Non-Af Amer) BUN/Creatinine Ratio Glucose POC Glucose 150 H 144 H Calcium Iron 31 L Ferritin 14.1 12/14/22 12/14/22 12/14/22 06:16 06:16 07:17 WBC 7.15 RBC 4.53 Hgb 9.9 L Hct 33.3 L MCV 73.5 L MCH 21.9 L MCHC 29.7 L RDW Std Deviation 48.5 H RDW Coeff of Maurice 18.6 H Plt Count 213 MPV 10.0 Sodium 133 L Potassium 4.9 Chloride 101 Carbon Dioxide 25 Anion Gap 7 BUN 29 H Creatinine 0.95 Est Cr Clr Drug Dosing 44.5 Est GFR ( Amer) 67.4 Est GFR (Non-Af Amer) 58.2 BUN/Creatinine Ratio 30.5 H Glucose 134 H POC Glucose 135 H Calcium 9.1 Iron Ferritin 12/14/22 11:14 WBC RBC Hgb Hct MCV MCH MCHC RDW Std Deviation RDW Coeff of Maurice Plt Count MPV Sodium Potassium Chloride Carbon Dioxide Anion Gap BUN Creatinine Est Cr Clr Drug Dosing Est GFR ( Amer) Est GFR (Non-Af Amer) BUN/Creatinine Ratio Glucose POC Glucose 196 H Calcium Iron Ferritin
--- NOTE | 2022-12-14 17:02 | Hospitalist Progress Note ---
Date of Service December 14, 2022 Assessment & Plan (1) Acute diastolic heart failure with preserved ejection fraction: Plan 77-year-old female with PMH of HTN, CVA, PSVT, PVD, DM 2 on oral meds, hypothyroidism, chronic anemia [baseline hemoglobin 9-10], dementia, seizure disorder, Enterococcus UTI presented to the ED 12/10 with complaint of acute onset dry cough associated with wheezing and shortness of breath with no chest pain on the day of arrival. Patient reports being compliant with home medications. SBP noted to be in 200s upon EMS arrival, IV Lasix was administered in the ED with improvement of symptoms. She is being managed for the following: Acute diastolic heart failure with preserved ejection fraction Hypertensive urgency Likely cardiac asthma:RSV/flu screen and COVID screen are negative, no h/o asthma/copd per pt and per OP chart review; non smoker. Patient presents with acute onset shortness of breath with concern of fluid retention per patient prior to arrival. BNP elevated at 242 at presentation, echo with EF of 60 to 65%, mild concentric LVH, grade 2 diastolic dysfunction, left ventricular wall motion normal. No regional motion abnormality noted. BP at presentation 254/126mmHg. CXR and CTA chest: Moderate right pleural effusion. No consolidation noted. 12/11 ECHO: EF 60-65%, mild concentric LVH, Gr II diastolic dysfunction. Cardiology on board, beta-pepe, losartan. on lasix, plan for Aldactone/DC potassium supplement. BMP in AM Continue telemetry monitoring, blood pressure monitoring. BP better. strict I/Os, daily weights, CHF education, fluid restriction for now. Pt improving clinically, currently on room air, no wheezing. Mild troponin elevation/likely demand ischemia:In 20s. Flat trend. Likely secondary to acute heart failure/hypertensive urgency. Admitting EKG with sinus tachycardia. Patient with no chest pain. Continue telemetry monitoring. Abn UA:Borderline, UCx contamination. no urinary s/s. Monitor off of antibiotic. Other chronic medical conditions:Continue with/resume home meds as and when able hx CVA, PVD hx PSVT as per records DM2 on oral medications, reasonable control as of recent hemoglobin A1c of 7.1 last October 2022 hypothyroidism, TSH slight elevated chronic anemia: Microcytic, iron deficiency. Patient has missed colonoscopy as an outpatient per psychiatric chart review. Patient will benefit from setting up colonoscopy with GI office upon discharge. dementia, patient mentating well Seizure disorder, stable on regimen (patient recently started outpatient on Lamictal course by [facility] [place] neurologist. Eventual plan to wean down/off Dilantin as per specialist note.). Per pt's family (phone conversation 12/11), she is on day 6 of lamictal as of 12/11 (She was supposed to be on 25 mg lamictal daily for week 1 and 2; then she has escalating doses) and is currently taking phenytoin 300 mg in the night only. I have copied pasted the escalation regimen down here from her OP chart review: With lamotrigine ER 25 mg tablets: Weeks 1 and 2, 25 mg (one 25 mg tablet) daily Weeks 3 and 4, 50 mg (two 25 mg tablets) daily With lamotrigine ER 50 mg tablets: Week 5, 100 mg (two 50 mg tablets) daily Week 6, 150 mg (three 50 mg tablets) daily With lamotrigine ER 200 mg tablets: Week 7, 200 mg (one 200 mg tablet) daily With lamotrigine ER 300 mg tablets: Weeks 8 and after 300 mg (one 300 mg tablet) daily Please pay special attention for any rashes or ulcers/sores on the gums, mouth or genital or anal regions as these can be a sign of a potentially serious side effect. If this occurs please stop the medication and call your doctor. PT OT eval DVT prophylaxis per Lovenox subcu Full code Patient's son Mr. Keith Lemon, contact #[phone]. Admission and Anticipated Discharge Date Admission Date: December 11, 2022 Subjective Patient seen and examined at bedside as a follow-up of acute diastolic heart failure with preserved ejection fraction, hypertensive urgency and likely demand ischemia. Patient was lying in bed, on RA, NAD, nocturnal pulse ox reviewed, will need oxygen during sleep and outpatient polysomnography. Patient with improving shortness of breath. No wheezing on exam today. Denies any fever or chills. Physical Exam Physical Exam: GENERAL: Alert and oriented x3. NAD, on room air HEENT: No pallor, no icterus. Pupils equal, round and reactive to light. Oral mucosa moist. NECK: No JVD, no neck masses. HEART: S1 and S2 heard. Regular rate and rhythm. No murmur, no gallop. RESPIRATORY SYSTEM: Normal AP diameter. No accessory muscle use. No wheezing, no crackles. decreased BS RLL ABDOMEN: Soft, bowel sounds present, nontender, no distention. CENTRAL NERVOUS SYSTEM: No facial droop. Speech is clear. Obeys simple commands. Moves extremities. EXTREMITIES: No edema, no erythema seen. Results & Data Results & Data Vital Signs (Past 12 Hours) Vital Signs Temp Pulse Resp BP BP Pulse Ox Pulse Ox 12/14/22 15:10 36.3 C L 63 19 159/71 H 96 12/14/22 11:15 36.3 C L 69 19 149/74 H 95 12/14/22 10:00 146/72 H 12/14/22 08:00 12/14/22 08:00 96 12/14/22 07:18 36.6 C 66 19 180/89 H 96 O2 Del Method O2 Del Method 12/14/22 15:10 Room Air 12/14/22 11:15 Room Air 12/14/22 10:00 12/14/22 08:00 Room Air 12/14/22 08:00 Room Air 12/14/22 07:18 Room Air
[2022-12-14] MEDS: LORATADINE 10 MG TAB PO SCH (20:05)
[2022-12-14] MEDS: PHENYTOIN SODIUM ER 100 MG CAP PO SCH (20:06)
[2022-12-14] MEDS: ROSUVASTATIN CALCIUM 20 MG TAB PO SCH (20:06)
[2022-12-14] MEDS: LOSARTAN POTASSIUM 25 MG TAB PO SCH (20:07)
[2022-12-15] MEDS: PANTOprazole 40 MG TAB PO SCH (05:59)
[2022-12-15] MEDS: LEVOTHYROXINE SODIUM 75 MCG TABLET PO SCH (05:59)
[2022-12-15] MEDS: FERROUS GLUCONATE 324 MG TAB PO SCH (08:35)
[2022-12-15] MEDS: DOCUSATE SODIUM 100 MG CAP PO SCH (08:35)
[2022-12-15] MEDS: DONEPEZIL HCL 10 MG TAB PO SCH (08:35)
[2022-12-15] MEDS: LOSARTAN POTASSIUM 25 MG TAB PO SCH (08:35)
[2022-12-15] MEDS: ENOXAPARIN INJ 40 MG/0.4 ML SYR SQ SCH (08:35)
[2022-12-15] MEDS: MEMANTINE HCL 10 MG TAB PO SCH (08:35)
[2022-12-15] MEDS: FUROSEMIDE 20 MG TAB PO SCH (08:35)
[2022-12-15] MEDS: guaiFENesin 600 MG TABCR PO SCH (08:35)
[2022-12-15] MEDS: amLODIPine BESYLATE 5 MG TAB PO SCH (08:35)
[2022-12-15] MEDS: FOLIC ACID 1 MG TAB PO SCH (08:35)
[2022-12-15] MEDS: METOPROLOL SUCC 25MG EXT REL TAB PO SCH (08:35)
[2022-12-15] MEDS: lamoTRIgine 25 MG TAB PO SCH (08:35)
[2022-12-15] MEDS: ASPIRIN 81 MG ECTAB PO SCH (08:35)
[2022-12-15] MEDS: INSULIN ASPART PER UNIT CHARGE SC SCH ×3 (08:39→17:07)
[2022-12-15] MEDS: LANTUS PER UNIT CHARGE SQ SCH (08:40)
--- NOTE | 2022-12-15 09:15 | Cardiology Progress Note ---
Date of Service December 15, 2022 Assessment & Plan (1) Acute diastolic heart failure with preserved ejection fraction: (2) Hypertensive urgency: (3) Elevated troponin: Plan IMPRESSION: 77-year-old female admitted with acute diastolic heart failure secondary to hypertensive urgency. Chest x-ray and CT evidence of right-sided pleural effusion. Patient clinical status improved with IV diuresis. Mildly elevated troponin secondary to hypertensive urgency and acute heart failure. Echocardiogram demonstrates preserved LV systolic function with left ventricular hypertrophy. Markedly hypertensive on admission. Utilized topical Nitrates with success in lowering BPs. GDMT titrated. 12/13/2022 Transition metoprolol to tartrate to metoprolol succinate for guideline directed heart failure beta-pepe Begin low-dose diuretic for diastolic heart failure and blood pressure control furosemide 20 mg p.o. daily Microcytic anemia present iron studies will be ordered 12/14/2022 Clinically improved though blood pressure still elevated. Follow daily weight, fluid balance, GFR, and electrolytes. Will increase losartan to 50 mg twice per day Furosemide begun at 20 mg p.o. daily Discontinue potassium supplement Likely add spironolactone in a.m. or at discharge Iron studies low would recommend supplementation, investigation of possible bleeding source 12/15/2022: Clinically improving. BP trending towards better control. Will cautiously add spironolactone 12.5 mg daily. Will need a BMP 1 week post discharge. Should sodium remain low will discontinue vs. reduce at that time. Continue Metoprolol 25 mg twice daily, Norvasc 5 mg daily and Losartan 50 mg twice daily as ordered. Volume status appears well compensated, continue Lasix 20 mg daily. Iron replacement per primary team. Case discussed with Dr. Tinoco. Recommend close cardiology follow up in 2 weeks post discharge. Admission and Anticipated Discharge Date Admission Date: December 11, 2022 Supervising Physician Co-Signing Physician Notes Patient seen and examined, chart, medications, telemetry reviewed. Overall feels well oxygenating well on room air. Blood pressure now much better controlled no signs or symptoms of volume overload Plan and treatment as well outlined above Subjective 77-year-old female who was initially admitted for acute on chronic diastolic heart failure with a right pleural effusion and hypertensive urgency. Echocardiogram demonstrated preserved LV systolic function with left ventricular hypertrophy She was diuresed with IV Lasix and responded well. 12/14: Losartan increased to 50 mg twice per day Transition to oral furosemide 20 mg daily Lab work indicated iron deficiency anemia 12/15: Upon entrance into the room patient resting comfortably in bed without acute concern. Notes improvement in her breathing. Denies any exertional chest pain. No palpitations, lightheadedness or dizziness. No lower extremity edema. No orthopnea or PND. Labs: Renal function stable, mild hyponatremia improving. Iron deficiency anemia noted with a hemoglobin of 9.9 yesterday, currently receiving IV iron. Tele: SR 1st degree AVB, 60-70s Review of Systems Review of Systems: All systems reviewed & are unremarkable except as noted in HPI & below Physical Exam Constitutional: well nourished; no acute distress Eyes: PERRL, conjunctivae normal, anicteric sclerae Respiratory: normal respiratory effort, lungs clear to auscultation no respiratory distress and no labored breathing Cardiovascular: Rate/Rhythm: regular rate and regular rhythm Heart Sounds: normal S1 and normal S2; no murmur Vessels: radial pulses present; no JVD Extremities: no edema Gastrointestinal (Abdomen): Inspection/Auscultation: normal bowel sounds; abdomen not distended Percussion/Palpation: abdomen soft; abdomen nontender, no guarding and abdomen not rigid Skin: no rashes, warm and dry Results & Data Vital Signs (Past 12 Hours) Vital Signs Temp Pulse Pulse Resp BP Pulse Ox Pulse Ox 12/15/22 08:00 12/15/22 06:58 36.5 C 58 L 14 127/75 100 12/15/22 03:20 68 145/79 H 12/15/22 03:10 36.4 C L 70 15 193/81 H 99 12/14/22 23:30 12/15/22 00:02 74 12/15/22 00:00 95 12/14/22 23:08 36.9 C 67 14 136/77 95 O2 Del Method O2 Del Method O2 Flow Rate 12/15/22 08:00 Room Air 12/15/22 06:58 Room Air 12/15/22 03:20 12/15/22 03:10 Nasal Cannula 12/14/22 23:30 Nasal Cannula 2 12/15/22 00:02 12/15/22 00:00 Room Air 12/14/22 23:08 Room Air Laboratory Results Comprehensive Metabolic Panel 12/15/22 Range/Units 09:20 Sodium 134 L (136-145) mmol/L Potassium 4.1 (3.5-5.1) mmol/L Chloride 102 (98-107) mmol/L Carbon Dioxide 23 (21-32) mmol/L BUN 28 H (6-23) mg/dl Creatinine 1.02 (0.6-1.2) mg/dl Glucose 247 H (70-99(Fasting)) mg/dl Calcium 8.8 (8.6-10.3) mg/dl Intake and Output 12/14/22 12/15/22 12/15/22 22:59 06:59 14:59 Output Total 425 / 1175 Balance -425 / -695 Output: Urine Amount (Catheter) 425 / 1175 Torres/Indwelling 425 / 1175 Other: Weight 65.3 kg Weight Measurement Method Built in [facility]
[2022-12-15] MEDS ORDERED: IRON SUCROSE 400 MG in SODIUM CHLORIDE 0.9% 250 ML IV ONE (10:00)
[2022-12-15 10:18] LABS: BUN Creatinine Ratio 27.5 (10-20); Calcium 8.8 mg/dl (8.6-10.3); Creatinine Clr Calc Pharmacy 41.6 ml/min; Est GFR (African American) 61.9 ml/min; Est GFR (Non-African American) 53.4 ml/min; Potassium 4.1 mmol/L (3.5-5.1)
--- NOTE | 2022-12-15 16:30 | Discharge Summary ---
Date of Service December 15, 2022 Admission HPI Per Admitting Provider History obtained from patient and records. Medical history significant for hypertension, CVA, PSVT, PVD, DM2 on oral medications, hypothyroidism, chronic anemia (baseline hemoglobin 9-10), dementia, seizure disorder. Last confinement March 2022 for Enterococcus UTI. Patient completed daptomycin course. Yesterday, patient had sudden onset dry cough followed by shortness of breath symptoms without chest pain. Compliant with home medications. Denies aspiration. Some fluid retention as per patient. Denies headache, abdominal pain, dysuria symptoms. SBP 200s upon EMS arrival. IV Lasix administered at the ER. 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 Admission Exam Per Admitting Provider GENERAL: Slightly uncomfortable, pleasant, chronic dysarthria, obese, no respiratory distress SKIN: Pallor, warm HEENT: Pale palpebral conjunctivae, no ptosis, chronic facial asymmetry, dry buccal mucosa, nasal cannula in place NECK : Supple, short neck, no tenderness CHEST : Decreased breath sounds, no tenderness HEART : RRR, no obvious murmurs ABDOMEN: Some distention, nontender EXTREMITIES : Minimal LE swelling, no LE tenderness, chronic RUE spastic contracture NEUROLOGIC : Coherent, chronic facial asymmetry, chronic RUE paresis, chronic dysarthria, gait and stance not assessed Principal Diagnosis Acute diastolic heart failure with preserved ejection fraction Hypertensive urgency Demand ischemia Nocturnal hypoxia Discharge Exam GENERAL: Alert and oriented x3. NAD, on room air HEENT: No pallor, no icterus. Pupils equal, round and reactive to light. Oral mucosa moist. NECK: No JVD, no neck masses. HEART: S1 and S2 heard. Regular rate and rhythm. No murmur, no gallop. RESPIRATORY SYSTEM: Normal AP diameter. No accessory muscle use. No wheezing, no crackles. decreased BS RLL ABDOMEN: Soft, bowel sounds present, nontender, no distention. CENTRAL NERVOUS SYSTEM: No facial droop. Speech is clear. Obeys simple commands. Moves extremities. EXTREMITIES: No edema, no erythema seen. Discharge Data Allergies Allergy/AdvReac Type Severity Reaction Status Date / Time labetalol AdvReac Intermediate nausea/vomi Verified 12/10/22 23:47 ting lisinopril AdvReac Intermediate Dizziness Verified 12/10/22 23:47 Consultations 12/11/22 02:10 ED Decision to Admit Stat 12/11/22 07:59 Consult Cardiology Routine Ordered Studies 12/11/22 00:43 CT angio chest PE protocol Stat Hospital Course (1) Acute diastolic heart failure with preserved ejection fraction: Plan 77-year-old female with PMH of HTN, CVA, PSVT, PVD, DM 2 on oral meds, hypothyroidism, chronic anemia [baseline hemoglobin 9-10], dementia, seizure disorder, Enterococcus UTI presented to the ED 12/10 with complaint of acute onset dry cough associated with wheezing and shortness of breath with no chest pain on the day of arrival. Patient reports being compliant with home medications. SBP noted to be in 200s upon EMS arrival, IV Lasix was administered in the ED with improvement of symptoms. She was managed for the following: Acute diastolic heart failure with preserved ejection fraction Hypertensive urgency Likely cardiac asthma:RSV/flu screen and COVID screen are negative, no h/o asthma/copd per pt and per OP chart review; non smoker. Patient presents with acute onset shortness of breath with concern of fluid retention per patient prior to arrival. BNP elevated at 242 at presentation, echo with EF of 60 to 65%, mild concentric LVH, grade 2 diastolic dysfunction, left ventricular wall motion normal. No regional motion abnormality noted. BP at presentation 254/126mmHg. CXR and CTA chest: Moderate right pleural effusion. No consolidation noted. 12/11 ECHO: EF 60-65%, mild concentric LVH, Gr II diastolic dysfunction. Cardiology on board, losartan 50 mg twice daily, metoprolol succinate 25 mg twice daily, amlodipine 5 Mg daily, Aldactone 12.5 Mg daily, Lasix 20 Mg daily. BMP in 1 week upon discharge. Patient has been on room air, reports feeling better, hemodynamically stable, blood pressure has been better. Patient to follow heart healthy diet, low-sodium diet, fluid restriction of 1.8 L/day. Microcytic anemia: Status post IV iron transfusion, patient being discharged on iron therapy. Patient to follow-up with GI to set up colonoscopy as an outpatient. Nocturnal hypoxia: Patient being discharged on 2 L oxygen during sleep, patient to coordinate with PCP office for outpatient sleep study. Mild troponin elevation/likely demand ischemia:In 20s. Flat trend. Likely secondary to acute heart failure/hypertensive urgency. Admitting EKG with sinus tachycardia. Patient with no chest pain. Abn UA:Borderline, UCx contamination. no urinary s/s. Monitor off of antibiotic. Ruled out UTI Other chronic medical conditions:Continue with/resume home meds as and when able hx CVA, PVD hx PSVT as per records DM2 on oral medications, reasonable control as of recent hemoglobin A1c of 7.1 last October 2022 hypothyroidism, TSH slight elevated chronic anemia: Microcytic, iron deficiency. Patient has missed colonoscopy as an outpatient per [facility] chart review. Patient will benefit from setting up colonoscopy with GI office upon discharge. dementia, patient mentating well Seizure disorder, stable on regimen (patient recently [place] [facility]. Eventual plan to wean down/off Dilantin as per specialist note.). Per pt's family (phone conversation 12/11), she is on day 6 of lamictal as of 12/11 (She was supposed to be on 25 mg lamictal daily for week 1 and 2; then she has escalating doses) and is currently taking phenytoin 300 mg in the night only. I have copied pasted the escalation regimen down here from her OP chart review: With lamotrigine ER 25 mg tablets: Weeks 1 and 2, 25 mg (one 25 mg tablet) daily Weeks 3 and 4, 50 mg (two 25 mg tablets) daily With lamotrigine ER 50 mg tablets: Week 5, 100 mg (two 50 mg tablets) daily Week 6, 150 mg (three 50 mg tablets) daily With lamotrigine ER 200 mg tablets: Week 7, 200 mg (one 200 mg tablet) daily With lamotrigine ER 300 mg tablets: Weeks 8 and after 300 mg (one 300 mg tablet) daily Please pay special attention for any rashes or ulcers/sores on the gums, mouth or genital or anal regions as these can be a sign of a potentially serious side effect. If this occurs please stop the medication and call your doctor. DVT prophylaxis per Lovenox subcu Full code Patient's son Mr. Keith Lemon, contact #[phone]. Patient's son Xochilt was given a phone call and updated about discharge recommendation. Patient being discharged to home with family support with following instruction at the point of discharge: Follow-up with your primary care physician within a week time and likely you will need labs CBC/CMP/magnesium/phosphorus. Follow-up with your heart doctor in 2 to 4 weeks time upon discharge. Heart doctor evaluated you while in the hospital for heart failure, several heart medications are added as prescribed. You dropped oxygen during sleep, you are being discharged on 2 L nasal cannula oxygen during sleep. You will benefit from outpatient sleep study, coordinate with your PCP office for referral. Maintain heart healthy diet/low-sodium diet/fluid restriction of 1.8 L/day. Maintain follow-up with the neurology as prior, continue to take your Lamictal as has been prescribed by your outpatient neurology. You have been diagnosed with microcytic anemia while in the hospital, you received iron transfusion while in the hospital. You are being discharged on iron tablet. Follow-up with GI doctor as an outpatient to set up colonoscopy. This will help rule out any underlying cancer (if they exist) as a cause of your microcytic anemia. Take your medications as prescribed. Please make sure that you are able to get your medications today by calling your pharmacy before you leave the hospital so that your treatment continuity is not broken. Home Health Attestation I certify that this patient is under my care and that I, or a physicians ophthalmic medical assistant working with me, had a face to-face encounter that meets the home health [id number] encounter requirements with this patient. The encounter with the patient was in whole, or in part, for the following medical condition, which is the primary reason for home health care (list medical condition): I certify that, based on my findings, the following services are medically necessary home health services: My clinical findings support the need for the above services because: Further, I certify that my clinical findings support that this patient is homebound (i.e. absences from home require considerable and taxing effort and are for medical reasons or mandaen services or infrequently or of short duration when for other reasons) because: Certification for Home Health Services: Based on the above findings, I certify that this patient is confined to the home and needs intermittent fci care, physical therapy and/or speech therapy or continues to need occupational therapy. The patient is under my care, and I have initiated the establishment of the plan of care. This patient will be followed by a physician who will periodically review the plan of care. Total Time Total Time Spent Total Time Spent (In Minutes): 55 Discharge Plan Discharge Items Patient Disposition: Home - Self-Care Reason For Visit: CHF Discharge Diagnosis: Acute diastolic heart failure with preserved ejection fraction Hypertensive urgency Demand ischemia Nocturnal hypoxia Activity: Resume your previous activity Non-emergency contact: Primary Care Provider Call non-emergency contact if: you have any medication questions, your pain is not controlled and your temperature is above 101 Follow-up/Referrals: Guillermo Tinoco MD [Physician] - (The cardiology office will call you with a follow up appointment.) Royer Jones MD [Primary Care Provider] - (Date & Time 12/22/2022 4:00 PM Provider Royer Jones MD Department Family Medicine [facility] ) Diet: Carb Consistent or DM2, Heart Healthy and Low Sodium (2gm) Addtl Attending Provider Instructions: Follow-up with your primary care physician within a week time and likely you will need labs CBC/CMP/magnesium/phosphorus. Follow-up with your heart doctor in 2 to 4 weeks time upon discharge. Heart doctor evaluated you while in the hospital for heart failure, several he art medications are added as prescribed. You dropped oxygen during sleep, you are being discharged on 2 L nasal cannula oxygen during sleep. You will benefit from outpatient sleep study, coordinate with your PCP office for referral. Maintain heart healthy diet/low-sodium diet/fluid restriction of 1.8 L/day. Maintain follow-up with the neurology as prior, continue to take your Lamictal as has been prescribed by your outpatient neurology. You have been diagnosed with microcytic anemia while in the hospital, you received iron transfusion while in the hospital. You are being discharged on iron tablet. Follow-up with GI doctor as an outpatient to set up colonoscopy. This will help rule out any underlying cancer (if they exist) as a cause of your microcytic anemia. Take your medications as prescribed. Please make sure that you are able to get your medications today by calling your pharmacy before you leave the hospital so that your treatment continuity is not broken. Pending Studies at Discharge: No Stand-Alone Forms: My [place], Smoking Cessation Medications and DC Order Prescriptions: New ferrous gluconate 324 mg (38 mg iron) Tablet 324 mg PO QAM Qty: 30 0RF losartan 50 mg tablet 50 mg PO BID Qty: 60 0RF metoprolol succinate 25 mg Tablet Extended Release 24 Hr 25 mg PO BID Qty: 60 0RF spironolactone 25 mg Tablet 12.5 mg PO DAILY Qty: 15 0RF furosemide 20 mg Tablet 20 mg PO QAM Qty: 30 0RF Continued metformin 500 mg tablet extended release 24 hr 1,000 mg PO QAM levothyroxine 75 mcg tablet 75 mcg PO DAILYBB aspirin 81 mg Tablet,Delayed Release (Dr/Ec) 81 mg PO DAILY memantine 10 mg tablet 10 mg PO AMHS folic acid 1 mg tablet 1 mg PO QAM loratadine 10 mg Tablet 10 mg PO HS docusate sodium 100 mg capsule 100 mg PO AMHS cholecalciferol (vitamin D3) [Vitamin D3] 25 mcg (1,000 unit) Tablet 50 mcg PO QAM donepezil 10 mg tablet 10 mg PO QAM ondansetron HCl [Zofran] 4 mg Tablet 4 mg PO Q8H PRN (Reason: NAUSEA/VOMITING) amlodipine 5 mg Tablet 5 mg PO DAILY benzonatate 100 mg capsule 100 mg PO TID PRN (Reason: Cough) polyethylene glycol 3350 [Miralax] 17 gram/dose Powder 17 g PO DAILY PRN (Reason: Constipation) rosuvastatin 40 mg tablet 40 mg PO HS lamotrigine 25 mg tablet extended release 24hr 25 mg PO DIRECTED Rx Instructions: STARTED 11/19/22-- WEEK 3 & 4 TAKE 2 TABS DAILY. DECEMBER 31, 2022 DOSE INCREASES TO 200 MG X 7 DAYS. Tylenol Fapd-Axj-Xflkt Dy-Nt 6.25-5-325 mg/15 mL (nt) Liquid, Sequential 15 ml PO Q4H PRN (Reason: Cold Symptoms) guaifenesin [Mucinex] 600 mg Tablet Extended Release 12hr 600 mg PO Q12H PRN (Reason: Cough) phenytoin sodium extended 100 mg capsule See Rx Instructions .ROUTE .COMPLEX Rx Instructions: TAKE 200 MG QAM, THEN 300 MG QHS. pantoprazole 40 mg tablet,delayed release (DR/EC) 40 mg PO DAILYBB Discontinued losartan 25 mg tablet 25 mg PO DAILY Discharge Orders: Discharge Order (Routine); Ordered 12/15/22 Ordered By: Umberto Luciano Admission Data Admit Date/Time: 12/11/22 05:52 Attending Provider: Umberto Luciano Admit Provider: Roosevelt Hudson Primary Care Provider: Royer Jones Other Providers: Roosevelt Hudson ; Jessenia Jama ; Keith Berry ; Guillermo Tinoco ; Eduardo Ornelas ; Collin Mcintyre ; Pop Mccrary ; Perla Solorio ; Nasrin Doe ; Jessenia Osullivan ; Sae Ledbetter ; Paola Whiting
[2022-12-16] MEDS ORDERED: SPIRONOLACTONE 12.5 MG TAB PO SCH (09:00)
== END 2022-12-15 18:35 | disposition home or self-care (01) | DRG 291 ==
LOC: ED 23:04 → 2S 12-11 05:52